=== PATIENT | male | born 1965 | race Caucasian/White ===

== ENCOUNTER 2018-01-17 06:35 | Emergency (ER) | payer BC ==
--- OUTSIDE RECORDS SUMMARY | 2018-01-17 06:38 | XMS REPORT | Clinical Summary ---
:1965 Author Organization [facility] Address [address] [place] [address] Phone Care Team Providers Name Role Phone Unavailable Primary Care Provider Unavailable Allergies No Known Allergies Current Medications Prescription Sig. Disp. Refills Start End Status Date Date levothyroxine Take 100 mcg by Active (SYNTHROID, mouth Every LEVOTHROID) 100 MCG morning on an tablet empty stomach. diazePAM (VALIUM) 5 Take 5 mg by mouth Active MG tablet as needed for Anxiety. solifenacin Take 10 mg by Active (VESICARE) 5 MG mouth daily. tablet ondansetron Take by mouth Active (ZOFRAN) 8 MG every 8 (eight) tablet hours as needed for Nausea. promethazine Take 12.5 mg by Active (PHENERGAN) 12.5 MG mouth every 6 tablet (six) hours as needed for Nausea. enoxaparin Inject 0.4 mLs (40 12 mL 0 01/08/ Active (LOVENOX) 40 mg/0.4 mg total) 8 018 mL Syrg subcutaneously daily for 30 days. traMADol (ULTRAM) Take 2 tablets 30 tablet 0 Active 50 mg tablet (100 mg total) by 8 018 mouth every 6 (six) hours as needed for Pain for up to 10 days. Max Daily Amount: 400 mg acetaminophen-codei Take 1 tablet by Discontinued ne (TYLENOL #3) mouth every 4 018 300-30 mg per (four) hours as tablet needed for Pain. phenazopyridine Take 200 mg by Discontinued (PYRIDIUM) 200 MG mouth 3 (three) 018 tablet times daily as needed for Pain. nitrofurantoin, Take 1 capsule 6 capsule 0 macrocrystal-monohy (100 mg total) by 8 018 drate, (MACROBID) mouth 2 (two) 100 MG capsule times daily for 3 days. phenazopyridine Take 1 tablet (200 10 tablet 0 (PYRIDIUM) 200 MG mg total) by mouth 8 018 tablet 3 (three) times daily as needed for Pain for up to 3 days. tamsulosin (FLOMAX) Take 1 capsule 14 capsule 0 0.4 mg Cp24 24 hr (0.4 mg total) by 8 018 capsule mouth daily for 14 days. oxybutynin Take 1 tablet (10 3 tablet 0 (DITROPAN-XL) 10 MG mg total) by mouth 8 018 24 hr tablet daily for 3 doses. HYDROcodone-acetami Take 1 tablet by Discontinued nophen (NORCO mouth every 6 018 5-325) 5-325 mg per (six) hours as tablet needed for Pain. sulfamethoxazole-tr Take 1 tablet (160 14 tablet 0 imethoprim (BACTRIM mg of trimethoprim 8 018 DS) 800-160 mg per total) by mouth 2 tablet (two) times daily for 7 days. Active Problems Problem Noted Date Bladder cancer (HCC) 01/02/2018 Malignant neoplasm of urinary bladder (HCC) 07/25/2017 Encounters Date Type Specialty Care Team Description 01/02/2018 - Hospital Encounter General Internal Danny Vaughn 01/07/2018 Medicine MD Miguel 01/02/2018 Procedure Pass 01/02/2018 Surgery Danny Vaughn DISSECTION,LYMPH MD Miguel NODE PELVIC 12/30/2017 Hospital Encounter Pre-Admission Danny Vaughn Testing MD Miguel 12/30/2017 Anesthesia Event Yesenia Harris MD 12/23/2017 Procedure Pass 08/16/2017 Hospital Encounter Radiology Fernandez Myrick Malignant neoplasm MD Reg of urinary bladder, unspecified site (HCC);Prostatic disorder 08/12/2017 Outside Orders Central Scheduling Yen, -Wade Malignant neoplasm MD Reg of urinary bladder, unspecified site (HCC) (Primary Dx);Prostatic disorder 08/03/2017 Hospital Encounter Radiology Danny Vaughn Malignant neoplasm MD Miguel of urinary bladder, unspecified site (HCC) 08/01/2017 Outside Orders Central Scheduling Danny Vaughn Malignant neoplasm MD Miguel of urinary bladder, unspecified site (HCC) (Primary Dx) 07/25/2017 Hospital Encounter Danny Vaughn MD 07/25/2017 Procedure Pass 07/25/2017 Surgery Danny Vaughn CYSTOSCOPY,TURBT MD Miguel 07/22/2017 Hospital Encounter Pre-Admission Testing 07/22/2017 Anesthesia Event Dolores Camilo MD after 01/16/2017 Social History Tobacco Use Types Packs/Day Years Used Date Never Smoker Smokeless Tobacco: Never Used Alcohol Use Drinks/Week oz/Week Comments Yes "very seldom" Sex Assigned at Date Recorded Not on file Last Filed Vital Signs Vital Sign Reading Time Taken Blood Pressure 115/67 01/07/2018 3:38 PM CDT Pulse 86 01/07/2018 3:38 PM CDT Temperature 35.6 C (96.1 F) 01/07/2018 3:38 PM CDT Respiratory Rate 18 01/07/2018 3:38 PM CDT Oxygen Saturation 98% 01/07/2018 3:38 PM CDT Inhaled Oxygen Concentration - - Weight 83.6 kg (184 lb 4.9 oz) 01/02/2018 5:40 AM CDT Height 180.3 cm (5' 11") 01/02/2018 5:40 AM CDT Body Mass Index 25.71 01/02/2018 5:40 AM CDT Plan of Treatment Not on file Implants Implanted Type Area Finish Remover Device Expiration Model / Serial Identifier Date / Lot Cath Exp Silv Soak [place] 12.5cmx [id number] - [id number] Pain ESTRELLA 03/08/2020 [id number] / Implanted: Qty: 1 on 01/02/2018 by Danny Vaughn MD Mgmt/Stim / ulator [id number] Cath Exp Silv Soak [place] 12.5cmx [id number] - [id number] Pain ESTRELLA 12/15/2019 [id number] / Implanted: Qty: 1 on 01/02/2018 by Danny Vaughn MD Mgmt/Stim / ulator [id number] Stent,Uret Manager Scheduling Diversion 8.4fr Left - [id number] Uro Stent [employer] UR[employer]ICAL 08/08/2018 [id number] / Implanted: Qty: 1 on 01/02/2018 by Danny Vaughn MD / [id number] Stent Manager Scheduling Uret 8.5jte98cp R [id number] - [id number] Uro Stent COOK:UROLOGY 08/08/2018 [id number] / Implanted: Qty: 1 on 01/02/2018 by Danny Vaughn MD / [id number] Procedures Procedure Name Priority Date/Time Associated Diagnosis Comments CYSTECTOMY,CREATION 01/02/2018 8:00 AM Malignant neoplasm of STUDOR POUCH CDT urinary bladder, unspecified site (HCC) DISSECTION,LYMPH NODE 01/02/2018 8:00 AM Malignant neoplasm of PELVIC CDT urinary bladder, unspecified site (HCC) CYSTOSCOPY,TURP 07/25/2017 9:51 AM Malignant neoplasm of SENIOR ACCOUNTS PAYABLE CLERK urinary bladder, unspecified site (HCC) CYSTOSCOPY,TURBT 07/25/2017 9:51 AM Malignant neoplasm of SENIOR ACCOUNTS PAYABLE CLERK urinary bladder, unspecified site (HCC) after 01/16/2017 Results RHYTHM STRIP - SCAN (01/10/2018 6:50 AM)Urine culture (01/07/2018 12:20 PM) Component Value Ref Range Result >100,000 col/mL Enterococcus species (A) Specimen Performing Laboratory Urine - Urine, Urostomy [address] [address] Organism Antibiotic Method Susceptibility Enterococcus species Ampicillin <=2: Susceptible Enterococcus species Linezolid 2: Susceptible Enterococcus species Nitrofurantoin <=16: Susceptible Enterococcus species Tetracycline <=1: Susceptible Enterococcus species Vancomycin 1: Susceptible Hemoglobin and hematocrit POD # 1 (01/07/2018 7:36 AM)Only the most recent of6 resultswithin the time period is included. Component Value Ref Range Hemoglobin 8.3 (L) 13.7 - 17.5 GM/DL Hematocrit 25.5 (L) 40.1 - 51.0 % Specimen Performing Laboratory Blood [address] [address] Phosphorus (01/07/2018 7:36 AM)Only the most recent of5 resultswithin the time period is included. Component Value Ref Range Phosphorus 3.0 2.3 - 4.7 mg/dL Specimen Performing Laboratory Blood [address] [address] Narrative Before arterial line is discontinued Magnesium (01/07/2018 7:36 AM)Only the most recent of5 resultswithin the time period is included. Component Value Ref Range Magnesium 1.6 1.6 - 2.6 mg/dL Specimen Performing Laboratory Blood [address] [address] Narrative Before arterial line is discontinued Basic Metabolic Panel - POD 1 (01/07/2018 7:36 AM)Only the most recent of7 resultswithin the time period is included. Component Value Ref Range Sodium 139 136 - 145 meq/L Potassium 3.5 3.5 - 5.1 meq/L Chloride 106 98 - 107 meq/L CO2 26 22 - 29 meq/L BUN 9 7 - 21 mg/dL Creatinine 0.85 0.57 - 1.25 mg/dL Glucose 97 70 - 105 mg/dL Calcium 8.4 8.4 - 10.2 mg/dL EGFR 95Comment: ESTIMATED GFR IS NOT ACCURATE mL/min/1.73 sq m CREATININE CLEARANCE IN PREDICTING GLOMERULAR FILTRATION RATE. ESTIMATED GFR IS NOT APPLICABLE FOR DIALYSIS PATIENTS. Specimen Performing Laboratory Blood [address] [address] Narrative Before arterial line is discontinued TRANSFUSION SERVICE REPORT - SCAN (01/04/2018 6:00 PM)Only the most recent of3 resultswithin the time period is included.Prepare Leuko-Red RBC (01/03/2018 11: 54 PM) Component Value Ref Range CROSSMATCH COMPATIBLE Unit ABO AB Neg UNIT NUMBER [id number] Status READY Blood Bank Product RED BLOOD CELLS PRODUCT CODE P4799Y33 CROSSMATCH COMPATIBLE Unit ABO AB Neg UNIT NUMBER [id number] Status TRANSFUSED Blood Bank Product RED BLOOD CELLS PRODUCT CODE [id number] Specimen Performing Laboratory Other [employer] [place] Transfuse Leuko-Red RBC (01/02/2018 2:30 PM)[facility]RL CRITICAL LABS (ABG,NA,K,H&H ,GLUCOSE) (01/02/2018 12:59 PM) Specimen Performing Laboratory Blood, Arterial Narrative The following orders were created for panel order [facility]RL CRITICAL LABS (ABG,NA,K,H&H,GLUCOSE). Procedure Abnormality Status --------- ------ Blood gas, arterial[[id number]]AbnormalFinal result Sodium Na-Stat Lab[[id number]] NormalFinal result Potassium-Stat Lab[[id number]] NormalFinal result Glucose-Stat Lab[[id number]] AbnormalFinal result HGB/HCT (H&H)-Stat Lab[[id number]] Abnormal Final result Please view results for these tests on the individual orders. Potassium-Stat Lab (01/02/2018 12:59 PM) Component Value Ref Range Potassium 4.1 3.6 - 5.5 meq/L Specimen Performing Laboratory Blood, [address] [address] Sodium Na-Stat Lab (01/02/2018 12:59 PM) Component Value Ref Range Sodium 137 135 - 148 meq/L Specimen Performing Laboratory Blood, [address] [address] Glucose-Stat Lab (01/02/2018 12:59 PM) Component Value Ref Range Glucose 121 (H) 70 - 110 mg/dL Specimen Performing Laboratory Blood, [address] [address] HGB/HCT (H&H)-Stat Lab (01/02/2018 12:59 PM) Component Value Ref Range Hemoglobin 7.7 (L) 13.0 - 16.8 g/dL Hematocrit 23.0 (L) 40.0 - 50.0 % Specimen Performing Laboratory Blood, [address] [address] Calcium, Ionized (01/02/2018 12:59 PM) Component Value Ref Range Calcium, Ion 1.08 (L) 1.12 - 1.27 mmol/L pH, Blood 7.39 Specimen Performing Laboratory Blood [address] [address] Blood gas, arterial (01/02/2018 12:59 PM) Component Value Ref Range pH, Arterial 7.39 7.35 - 7.45 pCO2, Arterial 36 35 - 45 mmHg pO2, Arterial 241 (H) 80 - 90 mmHg O2 Sat, Arterial 99.5 (H) 96.0 - 97.0 % HCO3, Arterial 21 21 - 29 mmol/L Base Excess, Arterial -3.2 (L) -2.0 - 3.0 mmol/L Patient Temperature 37.0 C FIO2 100.0 % Specimen Performing Laboratory Blood, Arterial [facility] [address] [address] Tissue Exam (01/02/2018 9:27 AM)Only the most recent of2 resultswithin the time period is included. Component Value Ref Range Case Report Surgical Pathology Report Case: [id number] Authorizing Provider:Danny Vaughn MDCollected: 01/02/2018 0944 Ordering Location: [facility] Received: 01/02/2018 0950 SERVICES Pathologist: Abdulaziz Daniels MD Specimens: A) - Lymph Node, DISTAL PARAAORTIC LYMPH NODE B) - Lymph Node, LEFT COMMOM ILIAC LYMPH NODE C) - Lymph Node, DISTAL PARAAORTIC LYMPH NODE D) - Lymph Node, LEFT EXTERNAL ILIAC LYMPH NODE E) - Lymph Node, LEFT OBTURATOR LYMPH NODE F) - Lymph Node, LEFT INTERNAL ILIAC LYMPH NODE G) - Lymph Node, RIGHT EXTERNALILIAC LYMPH NODE H) - Lymph Node, RIGHT OBTURATOR LYMPH NODE I) - Lymph Node, RIGHT COMMON ILIAC LYMPH NODE J) - Lymph Node, RIGHT INTERNAL ILIAC LYMPH NODE K) - Lymph Node, PRE SACRAL LYMPH NODE L) - Lymph Node, DISTAL VENA CAVA LYMPH NODE M) - Lymph Node, PROXIMAL LIMIT OF DISSECTION PARA AORTA N) - Lymph Node, PRE AORTIC LYMPH NODE O) - Lymph Node, PROXIMAL PERAAORTIC LYMPH NODE P) - Ureter, Right, RIGHT DISTAL URETER Q) - Ureter, Left, LEFT DISTAL URETER R) - Urinary Bladder, RADICAL CYSTOPROSTATECTOMY S) - Small Bowel, NOS, SMALL BOWEL RESECTION DIAGNOSIS A. LYMPH NODE, DISTAL PARA-AORTIC, DISSECTION: - THREE OF FOUR LYMPH NODES POSITIVE FOR UROTHELIAL CARCINOMA (3/4) B. LYMPH NODE, LEFT COMMON ILIAC, DISSECTION: - SEVEN OF EIGHT LYMPH NODES POSITIVE FOR UROTHELIAL CARCINOMA (7/8) C. LYMPH NODE, DISTAL PARA-AORTIC, EXCISION: - BENIGN ADIPOSE TISSUE D. LYMPH NODE, LEFT EXTERNAL ILIAC, DISSECTION: - TWO OF TWO LYMPH NODES POSITIVE FOR UROTHELIAL CARCINOMA (2/2) E. LYMPH NODE, LEFT OBTURATOR, DISSECTION: - FOUR OF FOUR LYMPH NODES POSITIVE FOR UROTHELIAL CARCINOMA (4/4) F. LYMPH NODE, LEFT INTERNAL ILIAC, DISSECTION: - ONE BENIGN LYMPH NODE (0/1) G. LYMPH NODE, RIGHT EXTERNAL ILIAC, DISSECTION: - THREE BENIGN LYMPH NODES (0/3) H. LYMPH NODE, RIGHT OBTURATOR, DISSECTION: - THREE BENIGN LYMPH NODES (0/3) I. LYMPH NODE, RIGHT COMMON ILIAC, DISSECTION: - FOUR BENIGN LYMPH NODES (0/4) J. LYMPH NODE, RIGHT INTERNAL ILIAC, DISSECTION: - ONE OF SIX LYMPH NODES, POSITIVE FOR UROTHELIAL CARCINOMA (1/6) K. LYMPH NODE, PRESACRAL, DISSECTION: - ONE BENIGN LYMPH NODES (0/1) L. LYMPH NODE, DISTAL VENA CAVA, DISSECTION: - THREE OF FOUR LYMPH NODES, POSITIVE FOR UROTHELIAL CARCINOMA (3/4) M. LYMPH NODE, PROXIMAL LIMIT OF DISSECTION PARA AORTA, DISSECTION: - TWO OF FOUR LYMPH NODES, POSITIVE FOR UROTHELIAL CARCINOMA (2/4) N. LYMPH NODE, PRE-AORTIC, DISSECTION: - EIGHT OF NINE LYMPH NODES, POSITIVE FOR UROTHELIAL CARCINOMA (8/9) O. LYMPH NODE, PROXIMAL PARA-AORTIC, DISSECTION: - BENIGN FIBROADIPOSE TISSUE P. URETER, RIGHT DISTAL, EXCISION OF MARGIN: - NEGATIVE FOR DYSPLASIA OR CARCINOMA Q. URETER, LEFT DISTAL, EXCISION OF MARGIN: - NEGATIVE FOR DYSPLASIA OR CARCINOMA R. BLADDER, RADICAL CYSTOPROSTATECTOMY: - PREVIOUS RESECTION SCAR, NEGATIVE FOR RESIDUAL CARCINOMA PROSTATE, RADICAL CYSTOPROSTATECTOMY: - ACUTE AND CHRONIC INFLAMMATION SEMINAL VESICLE, RADICAL CYSTOPROSTATECTOMY: - NO PATHOLOGIC DIAGNOSIS S. SMALL BOWEL, RESECTION: - NO PATHOLOGIC DIAGNOSIS Signing Pathologist Direct Phone Line: [phone] SYNOPTIC REPORT URINARY BLADDER: Cystectomy, Anterior Exenteration( Bladder Res - All Specimens) SPECIMEN Procedure:Radical cystoprostatectomy TUMOR Tumor Site:Left lateral wall Histologic Type:Papillary urothelial carcinoma, invasive Histologic Grade:High-grade Tumor Size:Cannot be determined: No residual tumor present Tumor Extent: Tumor Extension:No evidence of primary tumor Accessory Findings: Lymphovascular Invasion:Not identified Tumor Configuration:Cannot be determined MARGINS Margins:Uninvolved by invasive carcinoma and carcinoma in situ / noninvasive urothelial carcinoma LYMPH NODES Number of Lymph Nodes Involved:30 Size of Largest Metastatic Deposit in Centimeters (cm):0.65 Centimeters (cm) Site:Preaortic Size of Largest Lymph Node Involved in Centimeters (cm):2.1 Centimeters (cm) Extranodal Extension:Not identified Number of Lymph Nodes Examined:53 PATHOLOGIC STAGE CLASSIFICATION (pTNM, AJCC 8th Edition) TNM Descriptors:y (post-treatment) Primary Tumor (pT):pT0 Regional Lymph Nodes (pN):pN3 CPT Code(s) 15761, 83986 X 9, 15872 X 4, 30444 X 11 CLINICAL HISTORY Bladder cancer SPECIMEN SOURCE A. Pelvic lymph nodes, para-aortic lymph nodes; B. Left common iliac lymph node; C. Distal paraaortic lymph node; D. Left external iliac lymph node; E. Left obturator lymph node; F. Left internal iliac lymph node; G. Right external iliac lymph node; H. Right obturator lymph node; I. Right common iliac lymph node; J. Right internal iliac lymph node; K. Presacral lymph node; L. Distal vena caval lymph node; M. Proximal limit of dissection, para aorta; N. pre-aortic lymph nodes; O. Proximal periaortic lymph node; P. Right ureter; Q. Left ureter; R. urinary bladder, radical cystoprostatectomy; S. small bowel resection GROSS DESCRIPTION A. Received fresh for intraoperative consultation labeled with the patient's name and "distal para-aortic lymph node" is a single piece of everett-yellow adipose tissue measuring 1.3 x 1.2 x 0.4 cm. Two lym ph nodes are identified measuring from 0.4 x 0.3 x 0.2 cm to 07 x 0.5 x 0.3 cm. The two lymph nodes are bisected and touch preparations are performed. The larger lymph node is submitted in cassettes [id number] S-[id number], the smaller lymph node is submitted entirely in cassette A3FS, and the remaining fibroadipose tissue is submitted in cassette A4-A5. B labeled "left common iliac lymph node" consists of adipose tissue measuring 4 x 2.5 x 1 cm in aggregate yielding six lymph nodes from fatty to everett -finney measuring up to 2 cm in greatest dimension. The specimen is entirely submitted as follows: B1, two lymph nodes; B2, one lymph node bisected; B3, one lymph node bisected; B4, one lymph node bisected; B5, one lymph node bisected; B6, remainder of adipose tissue. C labeled "distal paraaortic lymph node" consists of adipose tissue measuring 1 x 0.6 x 0.3 cm. There is no lymph node tissue palpated. The specimen sis entirely submitted C1. D labeled "left external iliac lymph node" consists of adipose tissue measuring 3.5 x 2.5 x 1 cm in aggregate yielding two everett-red lymph nodes measuring up to 1 cm. The specimen is entirely submitted as follows: D1, one lymph node bisected; D2, one lymph node bisected; D3 and D4 , remainder of adipose tissue. E labeled "left obturator lymph node" consists of a large amount of adipose tissue measuring 5.5 x 4 x 2 cm in aggregate yielding three everett fatty lymph nodes measuring up to 3.5 cm. The specimen is enti rely submitted as follows: E1, one lymph node; E2, one lymph node bisected; E3 and E4, largest lymph node serially sectioned; E5 through E8, remainder of adipose tissue. F labeled "left internal iliac lymph node" consists of small portion of adipose tissue measuring 1.4 x 1 x 0.5 cm yielding no distinct lymph node tissue. The specimen is entirely submitted F1. G labeled "right external iliac lymph node" consists of adipose tissue measuring 4 x 2 x 1 cm yielding a single everett-finney lymph node measuring 0.4 cm. Lymph node is bisected, submitted G1. Remainder of the fat is submitted G2 through G4. H labeled "right obturator lymph node" consists of adipose tissue measuring 4 x 4 x 1.5 cm yielding four everett-finney and fatty lymph nodes measuring up to 6.2 cm. The specimen is entirely submitted as foll ows: H1, two lymph nodes bisected, one inked blue; H2, one lymph node bisected; H3 through H5, largest lymph node serially sectioned; H6 through H8, remainder of adipose tissue. I labeled "right common iliac lymph node" consists of a small portion of adipose tissue measuring 2 x 1 x 1 cm yielding two everett-red lymph nodes measuring 0.4 and 0.5 cm. The specimen is entirely submitt ed as follows: I1, two lymph nodes; I2, remainder of fat. J labeled "right internal iliac lymph node consists of adipose tissue measuring 2.5 x 2.5 x 0.5 cm in aggregate yielding no palpable lymph node tissue. Adipose tissue is entirely submitted J1 and J2. K labeled "presacral lymph node" consists of adipose tissue measuring 2 x 1 x 0.4 cm yielding one possible everett lymph node measuring 0.4 cm. Submitted entirely K1. Remainder of the fat submitted K2. L labeled "distal vena cava lymph node" consists of adipose tissue measuring 2 x 2 x 0.5 cm yielding a everett-red fatty lymph node measuring 2 cm in greatest dimension. The specimen is entirely submitted a s follows: L1, lymph node; L2, remainder of fat. M. Received fresh for intraoperative consultation labeled with the patient's name and "proximal limit of dissection para aorta lymph nodes" is a single piece of everett-yellow adipose tissue measuring 1.8 x 1.3 x 0.8 cm. Two lymph nodes are identified measuring from 0.5 to 0.8 cm in greatest dimension. Touch preparations are performed. The specimen is submitted entirely as follows; M1FS- largest lymph nod e, M2FS- smaller lymph node, M3-M4- remaining fibroadipose tissue. N labeled "preaortic lymph node" consists of adipose tissue measuring 3 x 2 x 1 cm in aggregate yielding four possible everett fatty lymph node ranging from 0.5 to 1.5 cm. The specimen is entirely submitted as follows: N1, four lymph nodes; N2, remainder of adipose tissue. O labeled "proximal paraaortic lymph node" consists of adipose tissue measuring 1.5 x 1.5 x 0.4 cm. Grossly no palpable lymph node tissue is present. The fat is entirely submitted O1. P. Received fresh for intraoperative consultation labeled with the patient's name and "right distal ureter" is a single ureter measuring 0.3 x 0.5 cm with scant fibroadipose tissue measuring 0.4 cm. The ureter is submitted entirely in one cassette for frozen section diagnosis. The remaining fibroadipose tissue is submitted in cassette P2. Q. Received fresh for intraoperative consultation labeled with the patient's name and "left distal ureter" is a single ureter measuring 0.3 x 0.5 cm with scant fibroadipose tissue measuring 0.4 cm. The ureter is submitted entirely in one cassette for frozen section diagnosis. The remaining fibroadipose tissue is submitted in cassette Q2. R. Received fresh labeled with the patient's name and "radical cystoprostatectomy" is a radical cystoprostatectomy specimen including an intact bladder measuring 10 cm x 9.5 cm x 4 cm, attached bilatera l ureter stumps (left 4.5 x 0.3, right 3.8 x 0.3 cm) and an attached prostate measuring 3.4 cm x 3.3 cm x 1.7 cm. The bladder is opened to reveal a everett-white scar along the left lateral wall measuring 3 .5 x 0.8 cm with a depth of 0.3 cm. The tumor infiltrates into the muscularis propria and is 1.2 cm from the serosal surface. The remaining bladder mucosa is unremarkable and everett-finney. No other lesions are noted. The right and left ureters are without grossly visible tumor. The ureteral orifices are patent and uninvolved by tumor. The prostate has a everett- white cut surface with no nodules present. The s eminal vesicles and vas deferentia are without tumor or other abnormalities. Ink code: Black-right bladder and prostate, blue-left bladder and prostate. Rehab Technician sections are submitted as follows: R1, left ureter resection margin; R2, right ureter resection margin; R3, left ureteral orifice; R4, right ureteral orifice; R5, left ureter representati ve sections; R6, right ureter billing representative sections; R7-R23, left lateral bladder wall scar, end submitted; R24, R25, right lateral wall billing representative sections; R26, R27, billing representative sections of p osterior wall; R28, R29, billing representative sections of bladder dome; R30, billing representative section of trigone; R31, billing representative section of anterior wall ; R32, prostate apex; R33-37, prostate from apex to base; R38, seminal vesicles. DD/ew S. Labeled "small bowel resection" consists of a segment of small bowel measuring 3 cm in length x 1.5 cm in diameter. The specimen is grossly unremarkable. Section code: S1, resection margin en face; S2, random section of small bowel. CG/pl INTRAOPERATIVE CONSULTATION FROZEN SECTION DIAGNOSIS: [id number]: DISTAL PARA-AORTIC LYMPH NODE, EXCISION: - TUMOR PRESENT IN LYMPH NODE - REPORTED BY DR. ARTHUR TO DR. VAUGHN AT 10:20 AM [id number]: LYMPH NODE, PROXIMAL LIMIT OF DISSECTION PARAORTA, EXCISION: - TUMOR PRESENT IN ONE OF TWO LYMPH NODES - REPORTED BY DR. ARTHUR TO DR. VAUGHN AT 11:45 AM P1FS: URETER, RIGHT DISTAL, EXCISION OF MARGIN: - NEGATIVE FOR HIGH GRADE DYSPLASIA OR CARCINOMA - REPORTED BY DR. ARTHUR TO DR. VAUGHN AT 11:45 AM Q1FS: URETER, LEFT DISTAL, EXCISION OF MARGIN: - NEGATIVE FOR HIGH GRADE DYSPLASIA OR CARCINOMA - REPORTED BY DR. ARTHUR TO DR. VAUGHN AT 11:45 AM MICROSCOPIC DESCRIPTION Performed. Specimen Performing Laboratory Tissue - Lymph Node; Tissue - Ureter, [facility] Right; Tissue - Ureter, Left; Tissue - [facility] Urinary Bladder; Tissue - Small Bowel, [place] [address] ANESTHESIA CSE BLOCK (01/02/2018 8:56 AM) Narrative Oliver Hernandez 01/02/20188:56 AM CSE Block Patient location during procedure: OR Start time: 01/02/2018 8:10 AM End time: 01/02/2018 8:19 AM Reason for block: procedure for pain, at surgeon's request and post-op pain management Staffing Anesthesiologist: JACQUELINE COATES Resident/CLINICAL UNIT COORDINATOR: OLIVER HERNANDEZ Performed by: resident/CLINICAL UNIT COORDINATOR Preanesthetic Checklist Completed: patient identified, site marked, surgical consent, pre-op evaluation, timeout performed, IV checked, risks and benefits discussed and monitors and equipment checked CSE Patient position: sitting Prep: ChloraPrep Patient monitoring: heart rate, monitor worker and continuous pulse ox Approach: midline Spinal Needle Needle type: [facility]. Needle gauge: 25 G Needle length: 10 cm Epidural Needle Injection technique: REBECCA saline Needle type: Tuohy Needle gauge: 17 G Location: lumbar (1-5) Catheter Catheter type: side hole Catheter size: 19G. Test dose: negative Assessment Sensory level: T10 Events: cerebrospinal fluid Additional Notes Patient remained HDS throughout the procedure. No complications. Dr. Coates present throughout the procedure. Oliver Hernandez MD Anesthesia- PGY 3 M Procedure Note Oliver Hernandez - 01/02/2018 8:55 AM CDT CSE Block Patient location during procedure: OR Start time: 01/02/2018 8:10 AM End time: 01/02/2018 8:19 AM Reason for block: procedure for pain, at surgeon's request and post-op pain management Staffing Anesthesiologist: JACQUELINE COATES Resident/CLINICAL UNIT COORDINATOR: OLIVER HERNANDEZ Performed by: resident/CLINICAL UNIT COORDINATOR Preanesthetic Checklist Completed: patient identified, site marked, surgical consent, pre-op evaluation , timeout performed, IV checked, risks and benefits discussed and monitors and equipment checked CSE Patient position: sitting Prep: ChloraPrep Patient monitoring: heart rate, monitor worker and continuous pulse ox Approach: midline Spinal Needle Needle type: [facility]. Needle gauge: 25 G Needle length: 10 cm Epidural Needle Injection technique: REBECCA saline Needle type: Tuohy Needle gauge: 17 G Location: lumbar (1-5) Catheter Catheter type: side hole Catheter size: 19G. Test dose: negative Assessment Sensory level: T10 Events: cerebrospinal fluid Additional Notes Patient remained HDS throughout the procedure. No complications. Dr. Coates present throughout the procedure. Oliver Hernandez MD Anesthesia- PGY 3 BCM Type and screen, automated (01/02/2018 6:33 AM)Only the most recent of2 resultswithin the time period is included. Component Value Ref Range ABO/RH AUTOMATED (BEAKER) AB NEGATIVE Ab Scrn NEGATIVE Specimen Performing Laboratory Blood [address] [address] Hemoglobin (01/02/2018 6:33 AM) Component Value Ref Range Hemoglobin 11.3 (L) 13.7 - 17.5 GM/DL Specimen Performing Laboratory Blood [address] [address] Narrative Check DOS IR CV Access Fluoro (08/16/2017 11:55 AM) Specimen Performing Laboratory GE RIS Narrative FINAL REPORT Right internal jugular chest port insertion History: Bladder cancer. Modality: Sonography and fluoroscopy. Sedation: Moderate sedation was administered. 1.5 mg of Versed and 75 mcg of fentanyl IV was used for moderate sedation monitored under my direction. Total intra-service time of sedation [id number]. The patient's vital signs were monitored throughout the procedure and recorded in the patient's medical record by the nurse. Endoscopy Tech:Daniel Ty MD Machine Tailer:None. Approach: Right internal jugular vein Estimated blood loss:< 5 cc. Specimen: None. Fluoroscopy Time: 0.5 min. Reference Air Kerma (Ka, r): 7.1 mGy. Technique: Informed written consent was obtained. Discussion of risks, benefits, and alternatives were made with the patient. The patient expressed understanding and agreed to proceed.A universal timeout was performed prior to starting the procedure.All elements maximal sterile barrier technique was utilized for this procedure, including utilization of sterile scrub solution for skin prep, a large sterile sheet to cover the areas of the patient that were not prepped, and hand hygiene, mask, head covering, and sterile gown for performing radiologist and scrub technologist. The skin was anesthetized with 2% lidocaine.Ultrasound evaluation showed a patent and compressible right internal jugular vein, which was punctured under direct real-time ultrasound guidance with a micropuncture needle.An ultrasound image was saved to PACS. A 0.018 inch wire was placed through the needle into the right atrium. A 4 [place] micropuncture sheath was placed. A subcutaneous tunnel and pocket were created in the right anterior chest wall by blunt dissection.The pocket was flushed with antibiotic solution. A 6 [place] Bard single lumen power injectable port was placed within the pocket and the catheter brought through the tunnel. The catheter was cut to appropriate length A peel-away sheath was placed in the right IJ vein and the catheter was advanced through the sheath, with its distal tip terminating in the cavoatrial junction. The peel-away sheath was removed. The port was flushed and aspirated easily following placement.The skin incision was closed with 3Monocryl and Dermabond.The small jugular incision site was closed using Dermabond.The patient tolerated the procedure well and left the department in the same condition. Patient received 1 gram of Vancomycin intravenously pre-procedure. Results:Spot radiograph of the chest demonstrates the new right IJ Port-A-Cath to lie in the expected position with its tip overlying the cavoatrial junction. Impression: Successful, uncomplicated placement of a right internal jugular chest port using sonographic and fluoroscopic guidance and conscious sedation. The port is ready for immediate use. Signed: Daniel Ty MD Report Verified Date/Time:08/16/2017 13:27:04 Reading Location: [place] [address] Angio Body Reading Room Procedure Note Interface, External Ris In - 08/16/2017 1:29 PM SENIOR ACCOUNTS PAYABLE CLERK FINAL REPORT Right internal jugular chest port insertion History: Bladder cancer. Modality: Sonography and fluoroscopy. Sedation: Moderate sedation was administered. 1.5 mg of Versed and 75 mcg of fentanyl IV was used for moderate sedation monitored under my direction. Total intra-service time of sedation was 30 minutes. The patient's vital signs were monitored throughout the procedure and recorded in the patient's medical record by the nurse. Endoscopy Tech: Daniel Ty MD Machine Tailer: None. Approach: Right internal jugular vein Estimated blood loss: < 5 cc. Specimen: None. Fluoroscopy Time: 0.5 min. Reference Air Kerma (Ka, r): 7.1 mGy. Technique: Informed written consent was obtained. Discussion of risks, benefits, and alternatives were made with the patient. The patient expressed understanding and agreed to proceed. A universal timeout was performed prior to starting the procedure. All elements maximal sterile barrier technique was utilized for this procedure, including utilization of sterile scrub solution for skin prep, a large sterile sheet to cover the areas of the patient that were not prepped, and hand hygiene, mask, head covering, and sterile gown for performing radiologist and scrub technologist. The skin was anesthetized with 2% lidocaine. Ultrasound evaluation showed a patent and compressible right internal jugular vein, which was punctured under direct real-time ultrasound guidance with a micropuncture needle. An ultrasound image was saved to PACS. A 0.018 inch wire was placed through the needle into the right atrium. A 4 [place] micropuncture sheath was placed. A subcutaneous tunnel and pocket were created in the right anterior chest wall by blunt dissection. The pocket was flushed with antibiotic solution. A 6 [place] Bard single lumen power injectable port was placed within the pocket and the catheter brought through the tunnel. The catheter was cut to appropriate length A peel-away sheath was placed in the right IJ vein and the catheter was advanced through the sheath, with its distal tip terminating in the cavoatrial junction. The peel-away sheath was removed. The port was flushed and aspirated easily following placement. The skin incision was closed with 3Monocryl and Dermabond. The small jugular incision site was closed using Dermabond. The patient tolerated the procedure well and left the department in the same condition. Patient received 1 gram of Vancomycin intravenously pre-procedure. Results: Spot radiograph of the chest demonstrates the new right IJ Port-A-Cath to lie in the expected position with its tip overlying the cavoatrial junction. Impression: Successful, uncomplicated placement of a right internal jugular chest port using sonographic and fluoroscopic guidance and conscious sedation. The port is ready for immediate use. Signed: Daniel Ty MD Report Verified Date/Time: 08/16/2017 13:27:04 Reading Location: [place] [address] Angio Body Reading Room /aPTT (08/16/2017 8:31 AM) Component Value Ref Range Protime 14.0 11.7 - 14.7 seconds INR 1.1 <=5.9 PTT 28.1 22.5 - 36.0 seconds Specimen Performing Laboratory Blood [address] [address] Narrative RECOMMENDED COUMADIN/WARFARIN INR THERAPY RANGES STANDARD DOSE: 2.0 - 3.0 Includes: PROPHYLAXIS for venous thrombosis, systemic embolization; TREATMENT for venous thrombosis and/or pulmonary embolus. HIGH RISK: Target INR is 2.5-3.5 for patients with mechanical heart valves. Platelet count (08/16/2017 8:31 AM) Component Value Ref Range Platelets 283 150 - 450 K/CU MM Specimen Performing Laboratory Blood [address] [address] NM PET/CT Whole Body Initial (08/03/2017 12:02 PM) Specimen Performing Laboratory [employer]broker RIS Narrative FINAL REPORT EXAMINATION: FDG-PET/CT, 08/03/2017 7:59 AM CLINICAL HISTORY: High-grade bladder carcinoma, recently diagnosed by cystoscopic biopsy. Enlarged left pelvic lymph nodes on CT. INDICATION:FDG-PET/CT is obtained for initial treatment evaluation. COMPARISON: No prior studies for comparison. CORRELATIVE IMAGING: CT 07/13/2017. TECHNIQUE: Radiopharmaceutical: F-18 Fluorodeoxyglucose Administered activity: 11.4] mCi Route of administration: Intravenously via the left antecubital vein Localization time: 66 minutes Scan extent: Vertex of the skull to the feet Additional imaging: None Serum blood glucose: 109 CPT Code: 20504 FINDINGS: Head and Neck: Mild bernice activity is seen along the cervical chains bilaterally, localizing to subcentimeter lymph nodes on the coacquired CT scan. Tracer uptake in the head and neck mucosa is normal and symmetric. The brain is normal in appearance on noncontrast CT scanning. Chest: Since the prior CT of 07/13/2017, there has been interval development of heterogeneous air space opacities and subpleural consolidation in the right and left lungs, most prominent at the apices. These pulmonary opacities are metabolically active, with SUV measurements in the right apical opacities reaching 6.5. There are scattered borderline lymph nodes in the mediastinum and pulmonary gino as well as in the superior mediastinum in the retrosternal space. These nodes are also metabolically active on PET scanning. Abdomen and Pelvis: CT images again show masslike soft tissue thickening along the left margin of the urinary bladder. FDG activity in the tumor itself is difficult to assess given the intense physiologic radiotracer activity in the urine of the bladder lumen. The prominent lymph node in the left external iliac chain seen on the recent CT examination is intensely hypermetabolic, with an SUV of 7.1. Additional lymph nodes along the left external iliac chain and common iliac chain are also metabolically active. For example, a 6 mm lymph node in the proximal left common iliac chain below the aortic bifurcation (CT image 164) has an SUV of 4.8. An adjacent lymph node slightly more proximal (CT image 167) measures 5 mm in size with an SUV of 4.7. There is bernice activity in the retroperitoneum, as well. For example, a 7 mm lymph node in the left periaortic space below the left renal vessels (CT image 175) has an SUV of 4.0. There are borderline lymph nodes in the janie hepatis and peripancreatic region, several of which are prominently FDG-avid. The dominant of these in the portal caval space (image 199) has an SUV of 6.8. The spleen is diffusely hypermetabolic, with a average parenchymal SUV of 3.8. By comparison, the liver has an average parenchymal SUV of 2.8. There are scattered curvilinear regions of radiotracer activity in the abdomen localizing to normal-appearing loops of large and small bowel, consistent with physiologic uptake. Musculoskeletal: Marrow activity is mildly increased diffusely. SUV measurements in the right and left iliac bones posteriorly, for example, reach 2.5 and 2.4, respectively. There are no focal sites of osseous hypermetabolism. No suspicious lytic or sclerotic osseous lesions are seen on CT. Multiple healed left rib fractures. IMPRESSION: 1. Soft tissue thickening along the left aspect of the urinary bladder, consistent with recently diagnosed high-grade urothelial carcinoma. 2. An enlarged lymph node in the left external iliac region is FDG-avid and suspicious for metastatic disease, as are the nodes in the left common iliac chain and lower retroperitoneum. 3. Additional sites of bernice activity in the chest and periportal regions would be unusual site for metastatic disease from urothelial carcinoma. Combined with the diffuse splenic hypermetabolism and mild diffuse marrow hypermetabolism, the pattern is most suggestive of a systemic process such as sarcoidosis or autoimmune disease. 4. Scattered FDG-avid pulmonary parenchymal opacities, new since 07/12/2017, consistent with infection or inflammation. Signed: Hernán Joseph MD Report Verified Date/Time:08/03/2017 14:56:22 Procedure Note Interface, External Ris In - 08/03/2017 2:58 PM SENIOR ACCOUNTS PAYABLE CLERK FINAL REPORT EXAMINATION: FDG-PET/CT, 08/03/2017 7:59 AM CLINICAL HISTORY: High-grade bladder carcinoma, recently diagnosed by cystoscopic biopsy. Enlarged left pelvic lymph nodes on CT. INDICATION: FDG-PET/CT is obtained for initial treatment evaluation. COMPARISON: No prior studies for comparison. CORRELATIVE IMAGING: CT 07/13/2017. TECHNIQUE: Radiopharmaceutical: F-18 Fluorodeoxyglucose Administered activity: 11.4] mCi Route of administration: Intravenously via the left antecubital vein Localization time: 66 minutes Scan extent: Vertex of the skull to the feet Additional imaging: None Serum blood glucose: 109 CPT Code: 63851 FINDINGS: Head and Neck: Mild bernice activity is seen along the cervical chains bilaterally, localizing to subcentimeter lymph nodes on the coacquired CT scan. Tracer uptake in the head and neck mucosa is normal and symmetric. The brain is normal in appearance on noncontrast CT scanning. Chest: Since the prior CT of 07/13/2017, there has been interval development of heterogeneous air space opacities and subpleural consolidation in the right and left lungs, most prominent at the apices. These pulmonary opacities are metabolically active, with SUV measurements in the right apical opacities reaching 6.5. There are scattered borderline lymph nodes in the mediastinum and pulmonary gino as well as in the superior mediastinum in the retrosternal space. These nodes are also metabolically active on PET scanning. Abdomen and Pelvis: CT images again show masslike soft tissue thickening along the left margin of the urinary bladder. FDG activity in the tumor itself is difficult to assess given the intense physiologic radiotracer activity in the urine of the bladder lumen. The prominent lymph node in the left external iliac chain seen on the recent CT examination is intensely hypermetabolic, with an SUV of 7.1. Additional lymph nodes along the left external iliac chain and common iliac chain are also metabolically active. For example, a 6 mm lymph node in the proximal left common iliac chain below the aortic bifurcation (CT image 164) has an SUV of 4.8. An adjacent lymph node slightly more proximal (CT image 167) measures 5 mm in size with an SUV of 4.7. There is bernice activity in the retroperitoneum, as well. For example, a 7 mm lymph node in the left periaortic space below the left renal vessels (CT image 175) has an SUV of 4.0. There are borderline lymph nodes in the janie hepatis and peripancreatic region, several of which are prominently FDG-avid. The dominant of these in the portal caval space (image 199) has an SUV of 6.8. The spleen is diffusely hypermetabolic, with a average parenchymal SUV of 3.8. By comparison, the liver has an average parenchymal SUV of 2.8. There are scattered curvilinear regions of radiotracer activity in the abdomen localizing to normal-appearing loops of large and small bowel, consistent with physiologic uptake. Musculoskeletal: Marrow activity is mildly increased diffusely. SUV measurements in the right and left iliac bones posteriorly, for example, reach 2.5 and 2.4, respectively. There are no focal sites of osseous hypermetabolism. No suspicious lytic or sclerotic osseous lesions are seen on CT. Multiple healed left rib fractures. IMPRESSION: 1. Soft tissue thickening along the left aspect of the urinary bladder, consistent with recently diagnosed high-grade urothelial carcinoma. 2. An enlarged lymph node in the left external iliac region is FDG-avid and suspicious for metastatic disease, as are the nodes in the left common iliac chain and lower retroperitoneum. 3. Additional sites of bernice activity in the chest and periportal regions would be unusual site for metastatic disease from urothelial carcinoma. Combined with the diffuse splenic hypermetabolism and mild diffuse marrow hypermetabolism, the pattern is most suggestive of a systemic process such as sarcoidosis or autoimmune disease. 4. Scattered FDG-avid pulmonary parenchymal opacities, new since 07/12/2017, consistent with infection or inflammation. Signed: Hernán Joseph MD Report Verified Date/Time: 08/03/2017 14:56:22 -Glucose meter (08/03/2017 9:18 AM) Component Value Ref Range POC-Glucose Meter 109Comment: TESTED AT [address] 70 - 110 mg/dL [address] Specimen Performing Laboratory Blood [address] [address] Urinalysis w/Microscopic (07/25/2017 8:35 AM) Component Value Ref Range Color, UA Yellow Clarity, UA Hazy Specific [place], UA 1.019 1.001 - 1.035 pH, UA 5.5 5.0 - 8.0 Protein, UA 100 mg/dL (A) Negative Glucose, UA Negative Negative Ketones, UA Negative Negative Bilirubin, UA Negative Negative Blood, UA Moderate (A) Negative Nitrite, UA Negative Negative Leukocytes, UA Large (A) Negative Urobilinogen, UA 2.0 (H) 0.2 - 1.0 mg/dL RBC, UA 27 /HPF WBC, UA 155 /HPF Mucus Rare Hyaline Casts, UA 1 /LPF Specimen Source Urine, Clean Catch Specimen Performing Laboratory Urine - Urine, Clean Catch [address] [address] after 01/16/2017
--- OUTSIDE RECORDS SUMMARY | 2018-01-17 06:39 | XMS REPORT ---
:1965 [facility] Address [address] [place] [address] Dr. Rivera [address] [place] [id number] Care Team Providers Name Role Phone HUGO VAUGHN Unavailable Unavailable BERTRAND HERNANDEZ Unavailable Unavailable Problems This patient has no known problems. Allergies, Adverse Reactions, Alerts This patient has no known allergies or adverse reactions. Medications This patient has no known medications. Results Test Description Test Time Test Comments Text Results Atomic Results Result Comments TISSUE EXAM 2018-01-10 16:33:00 Surgical Pathology Report Case: [id number] Authorizing Provider: Hugo Vaughn MD Collected: 01/02/2018 0944 Ordering Location: [facility] PERIOPERATIVE Received: 01/02/2018 0950 SERVICES Pathologist: Abdulaziz Daniels MD Specimens: A) - Lymph Node, DISTAL PARA AORTIC LYMPH NODE B) - Lymph Node, LEFT COMMOM ILIAC LYMPH NODE C) - Lymph Node, DISTAL PARA AORTIC LYMPH NODE D) - Lymph Node, LEFT EXTERNAL ILIAC LYMPH NODE E) - Lymph Node, LEFT OBTURATOR LYMPH NODE F) - Lymph Node, LEFT INTERNAL ILIAC LYMPH NODE G) - Lymph Node, RIGHT EXTERNAL ILIAC LYMPH NODE H) - Lymph Node, RIGHT [...] LYMPH NODE O) - Lymph Node, PROXIMAL EDITH AORTIC LYMPH NODE P) - Ureter, Right, RIGHT DISTAL URETER Q) - Ureter, Left, LEFT DISTAL URETER R) - Urinary Bladder, RADICAL CYSTOPROSTATECTOMY S) - Small Bowel, NOS, SMALL BOWEL RESECTION A. LYMPH NODE, DISTAL PARA-AORTIC, DISSECTION: - THREE OF FOUR LYMPH NODES POSITIVE FOR UROTHELIAL CARCINOMA (3/4)B. LYMPH NODE, LEFT COMMON ILIAC, DISSECTION: - SEVEN OF EIGHT LYMPH NODES POSITIVE FOR UROTHELIAL CARCINOMA (7/8)C. LYMPH NODE, DISTAL PARA-AORTIC, EXCISION: - BENIGN ADIPOSE TISSUED. LYMPH NODE, LEFT EXTERNAL ILIAC, DISSECTION: - TWO OF TWO LYMPH NODES POSITIVE FOR UROTHELIAL CARCINOMA (2/2)E. LYMPH NODE, LEFT OBTURATOR, DISSECTION: - FOUR OF FOUR LYMPH NODES POSITIVE FOR UROTHELIAL CARCINOMA (4/4)F. LYMPH NODE, LEFT INTERNAL ILIAC, DISSECTION: - ONE BENIGN LYMPH NODE (0/1)G. LYMPH NODE, RIGHT EXTERNAL ILIAC, DISSECTION: - THREE BENIGN LYMPH NODES (0/3)H. LYMPH NODE, RIGHT OBTURATOR, DISSECTION: - THREE BENIGN LYMPH NODES (0/3)I. LYMPH NODE, RIGHT COMMON ILIAC, DISSECTION: - FOUR BENIGN LYMPH NODES (0/4)J. LYMPH NODE, RIGHT INTERNAL ILIAC, DISSECTION: - ONE OF SIX LYMPH NODES, POSITIVE FOR UROTHELIAL CARCINOMA (1/6)K. LYMPH NODE, PRESACRAL, DISSECTION: - ONE BENIGN LYMPH NODES (0/1)L. LYMPH NODE, DISTAL VENA CAVA, DISSECTION: - THREE OF FOUR LYMPH NODES, POSITIVE FOR UROTHELIAL CARCINOMA (3/4)M. LYMPH NODE, PROXIMAL LIMIT OF DISSECTION PARA AORTA, DISSECTION: - TWO OF FOUR LYMPH NODES, POSITIVE FOR UROTHELIAL CARCINOMA (2/4)N. LYMPH NODE, PRE-AORTIC, DISSECTION: - EIGHT OF NINE LYMPH NODES, POSITIVE FOR UROTHELIAL CARCINOMA (8/9)O. LYMPH NODE, PROXIMAL PARA-AORTIC, DISSECTION: - BENIGN FIBROADIPOSE TISSUEP. URETER, RIGHT DISTAL, EXCISION OF MARGIN: - NEGATIVE FOR DYSPLASIA OR CARCINOMAQ. URETER, LEFT DISTAL, EXCISION OF MARGIN: - NEGATIVE FOR DYSPLASIA OR CARCINOMAR. BLADDER, RADICAL CYSTOPROSTATECTOMY: - PREVIOUS RESECTION SCAR, NEGATIVE FOR RESIDUAL CARCINOMA PROSTATE, RADICAL CYSTOPROSTATECTOMY: - ACUTE AND CHRONIC INFLAMMATION SEMINAL VESICLE, RADICAL CYSTOPROSTATECTOMY: - NO PATHOLOGIC DIAGNOSISS. SMALL BOWEL, RESECTION: - NO PATHOLOGIC DIAGNOSIS Signing Pathologist Direct Phone Line: [phone] signed by Abdulaziz Daniels MD on 01/10/2018 at 4:33 PMPreliminary result electronically signed by Abdulaziz Daniels MD on 01/06/2018 at 1:36 PMURINARY BLADDER: Cystectomy, Anterior Exenteration (Bladder Res - All Specimens)SPECIMEN Procedure: Radical cystoprostatectomy TUMOR Tumor Site: Left lateral wall Histologic Type: Papillary urothelial carcinoma, invasive Histologic Grade: High-grade Tumor Size: Cannot be determined: No residual tumor present Tumor Extent: Tumor Extension: No evidence of primary tumor Accessory Findings: Lymphovascular Invasion: Not identified Tumor Configuration: Cannot be determined MARGINS Margins: Uninvolved by invasive carcinoma and carcinoma in situ / noninvasive urothelial carcinoma LYMPH NODES Number of Lymph Nodes Involved: 30 Size of Largest Metastatic Deposit in Centimeters (cm): 0.65 Centimeters (cm) Site: Preaortic Size of Largest Lymph Node Involved in Centimeters (cm): 2.1 Centimeters (cm) Extranodal Extension: Not identified Number of Lymph Nodes Examined: 53 PATHOLOGIC STAGE CLASSIFICATION (pTNM, AJCC 8th Edition) TNM Descriptors: y (post-treatment) Primary Tumor (pT): pT0 Regional Lymph Nodes (pN): pN3 06420, 96020 X 9, 16209 X 4, 20207 X 11Bladder cancerA. Pelvic lymph nodes, para-aortic lymph nodes; B. [...] urinary bladder, radical cystoprostatectomy; S. small bowel resectionA. Received fresh for intraoperative consultation labeled with the patient's name and "distal para-aortic lymph node" is a single piece of everett-yellow adipose tissue measuring 1.3 x 1.2 x 0.4 cm. Two lymph nodes are identified measuring from 0.4 x 0.3 x 0.2 cm to 07 x 0.5 x 0.3 cm. The two lymph nodes are bisected and touch preparations are performed. The larger lymph node is submitted in cassettes [id number], the smaller lymph node is submitted entirely in cassette A3FS, and the remaining fibroadipose tissue is submitted in cassette A4-A5.B labeled "left common iliac lymph node" consists of adipose tissue measuring 4 x 2.5 x 1 cm in aggregate yielding six lymph nodes from fatty to everett-finney measuring up to 2 cm in greatest [...] D2, one lymph node bisected; D3 and D4, remainder of adipose tissue. E labeled "left obturator lymph node" consists of a large amount of adipose tissue measuring 5.5 x 4 x 2 cm in aggregate yielding three everett fatty lymph nodes measuring up to 3.5 cm. The specimen is entirely submitted as follows: E1, one lymph node; [...] The specimen is entirely submitted as follows: H1, two lymph nodes bisected, one inked [...] and 0.5 cm. The specimen is entirely submitted as follows: I1, two lymph nodes; I2, remainder of fat.J labeled "right internal iliac lymph node consists [...] The specimen is entirely submitted as follows: L1, lymph node; L2, remainder of [...] submitted entirely as follows; M1FS- largest lymph node, M2FS- smaller lymph node, M3-M4- remaining fibroadipose tissue.N labeled "preaortic lymph node" consists of adipose [...] remaining fibroadipose tissue is submitted in cassette P2.Q. Received fresh for intraoperative consultation labeled with the patient's name and "left distal ureter" is a single ureter measuring 0.3 x 0.5 cm with scant fibroadipose tissue measuring 0.4 cm. The ureter is submitted entirely in one cassette for frozen section diagnosis. The remaining fibroadipose tissue is submitted in cassette Q2.R. Received fresh labeled with the patient's name and "radical cystoprostatectomy" is a radical cystoprostatectomy specimen including an intact bladder measuring 10 cm x 9.5 cm x 4 cm, attached bilateral ureter stumps (left 4.5 x 0.3, right 3.8 x 0.3 cm) and an attached prostate measuring 3.4 cm x 3.3 cm x 1.7 cm. The bladder is opened to reveal a everett-white scar along the left lateral wall measuring 3.5 x 0.8 cm with a depth of 0.3 cm. The tumor infiltrates into the muscularis propria and is 1.2 cm from the serosal surface. The remaining bladder mucosa is unremarkable and everett-finney. No other lesions are noted. The right and left ureters are without grossly visible tumor. The ureteral orifices are patent and uninvolved by tumor. The prostate has a everett-white cut surface with no nodules present. The seminal vesicles and vas deferentia are without tumor or other abnormalities.Ink code: Black-right bladder and prostate, blue-left bladder and prostate.Leadership Development Instructor sections are submitted as follows: R1, left ureter resection margin; R2, right ureter resection margin; R3, left ureteral orifice; R4, right ureteral orifice; R5, left ureter product sales representative sections; R6, right ureter product sales representative sections; R7-R23, left lateral bladder wall scar, end submitted; R24, R25, right lateral wall product sales representative sections; R26, R27, product sales representative sections of posterior wall; R28, R29, product sales representative sections of bladder dome; R30, product sales representative section of trigone; R31, product sales representative section of anterior wall; R32, prostate apex; R33-37, prostate from apex to base; R38, seminal vesicles. DD/ewS. Labeled "small bowel resection" consists of a segment of small bowel measuring 3 cm in length x 1.5 cm in diameter. The specimen is grossly unremarkable. Section code: S1, resection margin en face; S2, random section of small bowel. CG/plFROZEN SECTION DIAGNOSIS:[id number]: DISTAL PARA-AORTIC LYMPH NODE, EXCISION: - TUMOR PRESENT IN LYMPH NODE - REPORTED BY DR. ARTHUR TO DR. VAUGHN AT 10:20 [id number]: LYMPH NODE, PROXIMAL LIMIT OF DISSECTION PARAORTA, EXCISION: - TUMOR PRESENT IN ONE OF TWO LYMPH NODES - REPORTED BY DR. ARTHUR TO DR. VAUGHN AT 11:45 AMP1FS: URETER, RIGHT DISTAL, EXCISION OF MARGIN: - NEGATIVE FOR HIGH GRADE DYSPLASIA OR CARCINOMA - REPORTED BY DR. ARTHUR TO DR. VAUGHN AT 11:45 AMQ1FS: URETER, LEFT DISTAL, EXCISION OF MARGIN: - NEGATIVE FOR HIGH GRADE DYSPLASIA OR CARCINOMA - REPORTED BY DR. ARTHUR TO DR. VAUGHN AT 11:45 AM Performed. URINE CULTURE 2018-01-09 12:19:00 Test Item Value Reference Range Comments CULTURE (BEAKER) (test ENTEROCOCCUS SPECIES >100,000 col/mL Enterococcus gact=3898) species Ampicillin (test code=26) Linezolid (test code=40) Nitrofurantoin (test code=23) Tetracycline (test code=2) Vancomycin (test code=13) [id number] 08:23:00 Test Item Value Reference Range Comments PHOSPHORUS (BEAKER) (test qiuh=249) 3.0 mg/dL 2.3-4.7 Before arterial line is [id number] 08:23:00 Test Item Value Reference Range Comments MAGNESIUM (BEAKER) (test zjom=105) 1.6 mg/dL 1.6-2.6 Before arterial line is discontinuedBASIC METABOLIC [id number] 08:23:00 Test Item Value Reference Range Comments SODIUM (BEAKER) (test 139 meq/L 136-145 mlbg=383) POTASSIUM (BEAKER) (test 3.5 meq/L 3.5-5.1 dzyc=938) CHLORIDE (BEAKER) (test 106 meq/L 98-107 jkuj=323) CO2 (BEAKER) (test 26 meq/L 22-29 cixy=867) BLOOD UREA NITROGEN 9 mg/dL 7-21 (BEAKER) (test dycf=086) CREATININE (BEAKER) (test 0.85 mg/dL 0.57-1.25 zqbw=941) GLUCOSE RANDOM (BEAKER) 97 mg/dL 70-105 (test mubi=051) CALCIUM (BEAKER) (test 8.4 mg/dL 8.4-10.2 xcox=802) EGFR (BEAKER) (test 95 mL/min/1.73 sq m ESTIMATED GFR IS NOT lpqm=7502) ACCURATE CREATININE CLEARANCE IN PREDICTING GLOMERULAR FILTRATION RATE. ESTIMATED GFR IS NOT APPLICABLE FOR DIALYSIS PATIENTS. Before arterial line is discontinuedHEMOGLOBIN AND [id number] 07:53:00 Test Item Value Reference Range Comments HEMOGLOBIN (BEAKER) (test afzo=650) 8.3 GM/DL 13.7-17.5 HEMATOCRIT (BEAKER) (test gfti=573) 25.5 % 40.1-51.0 [id number] 07:53:00 Test Item Value Reference Range Comments PHOSPHORUS (BEAKER) (test wzzv=790) 3.0 mg/dL 2.3-4.7 Before arterial line is [id number] 07:53:00 Test Item Value Reference Range Comments MAGNESIUM (BEAKER) (test uzhd=822) 1.6 mg/dL 1.6-2.6 Before arterial line is discontinuedBASIC METABOLIC [id number] 07:53:00 Test Item Value Reference Range Comments SODIUM (BEAKER) (test 135 meq/L 136-145 ootc=864) POTASSIUM (BEAKER) (test 3.9 meq/L 3.5-5.1 jdib=550) CHLORIDE (BEAKER) (test 109 meq/L 98-107 zylv=831) CO2 (BEAKER) (test 20 meq/L 22-29 jczc=083) BLOOD UREA NITROGEN 12 mg/dL 7-21 (BEAKER) (test lnhl=413) CREATININE (BEAKER) (test 0.88 mg/dL 0.57-1.25 dmlf=195) GLUCOSE RANDOM (BEAKER) 94 mg/dL 70-105 (test kxgt=508) CALCIUM (BEAKER) (test 8.2 mg/dL 8.4-10.2 ncme=480) EGFR (BEAKER) (test 91 mL/min/1.73 sq m ESTIMATED GFR IS NOT heto=7373) ACCURATE CREATININE CLEARANCE IN PREDICTING GLOMERULAR FILTRATION RATE. ESTIMATED GFR IS NOT APPLICABLE FOR DIALYSIS PATIENTS. Before arterial line is discontinuedHEMOGLOBIN AND [id number] 06:12:00 Test Item Value Reference Range Comments HEMOGLOBIN (BEAKER) (test iuep=338) 7.6 GM/DL 13.7-17.5 HEMATOCRIT (BEAKER) (test crna=724) 23.7 % 40.1-51.0 [id number] 05:44:00 Test Item Value Reference Range Comments PHOSPHORUS (BEAKER) (test wgwn=398) 3.0 mg/dL 2.3-4.7 Before arterial line is [id number] 05:44:00 Test Item Value Reference Range Comments MAGNESIUM (BEAKER) (test xenl=710) 1.6 mg/dL 1.6-2.6 Before arterial line is discontinuedBASIC METABOLIC [id number] 05:44:00 Test Item Value Reference Range Comments SODIUM (BEAKER) (test 138 meq/L 136-145 euyt=143) POTASSIUM (BEAKER) (test 4.1 meq/L 3.5-5.1 cfob=941) CHLORIDE (BEAKER) (test 109 meq/L 98-107 bmpj=003) CO2 (BEAKER) (test 21 meq/L 22-29 qhjq=509) BLOOD UREA NITROGEN 19 mg/dL 7-21 (BEAKER) (test xwwu=359) CREATININE (BEAKER) (test 1.12 mg/dL 0.57-1.25 ymzp=974) GLUCOSE RANDOM (BEAKER) 107 mg/dL 70-105 (test mlmy=617) CALCIUM (BEAKER) (test 8.3 mg/dL 8.4-10.2 ntny=615) EGFR (BEAKER) (test 69 mL/min/1.73 sq m ESTIMATED GFR IS NOT dmrq=6985) ACCURATE CREATININE CLEARANCE IN PREDICTING GLOMERULAR FILTRATION RATE. ESTIMATED GFR IS NOT APPLICABLE FOR DIALYSIS PATIENTS. Before arterial line is discontinuedHEMOGLOBIN AND [id number] 05:07:00 Test Item Value Reference Range Comments HEMOGLOBIN (BEAKER) (test ymut=473) 7.6 GM/DL 13.7-17.5 HEMATOCRIT (BEAKER) (test qxyj=423) 23.4 % 40.1-51.0 [id number] 06:36:00 Test Item Value Reference Range Comments MAGNESIUM (BEAKER) (test wljo=453) 2.1 mg/dL 1.6-2.6 Before arterial line is discontinuedBASIC METABOLIC [id number] 06:36:00 Test Item Value Reference Range Comments SODIUM (BEAKER) (test 134 meq/L 136-145 psnf=225) POTASSIUM (BEAKER) (test 4.9 meq/L 3.5-5.1 bguo=411) CHLORIDE (BEAKER) (test 107 meq/L 98-107 zeam=893) CO2 (BEAKER) (test 21 meq/L 22-29 kzub=890) BLOOD UREA NITROGEN 26 mg/dL 7-21 (BEAKER) (test ovoi=335) CREATININE (BEAKER) (test 1.36 mg/dL 0.57-1.25 rvql=714) GLUCOSE RANDOM (BEAKER) 113 mg/dL 70-105 (test qtfj=318) CALCIUM (BEAKER) (test 8.2 mg/dL 8.4-10.2 uzer=227) EGFR (BEAKER) (test 55 mL/min/1.73 sq m ESTIMATED GFR IS NOT iwpx=9379) ACCURATE CREATININE CLEARANCE IN PREDICTING GLOMERULAR FILTRATION RATE. ESTIMATED GFR IS NOT APPLICABLE FOR DIALYSIS PATIENTS. Before arterial line is [id number] 06:36:00 Test Item Value Reference Range Comments PHOSPHORUS (BEAKER) (test xdbh=746) 3.3 mg/dL 2.3-4.7 HEMOGLOBIN AND [id number] 06:16:00 Test Item Value Reference Range Comments HEMOGLOBIN (BEAKER) (test cwny=613) 7.9 GM/DL 13.7-17.5 HEMATOCRIT (BEAKER) (test bwaf=183) 24.4 % 40.1-51.0 [id number] 06:27:00 Test Item Value Reference Range Comments PHOSPHORUS (BEAKER) (test cuep=639) 3.4 mg/dL 2.3-4.7 Before arterial line is [id number] 06:27:00 Test Item Value Reference Range Comments MAGNESIUM (BEAKER) (test ttcl=913) 2.3 mg/dL 1.6-2.6 Before arterial line is discontinuedBASIC METABOLIC [id number] 06:27:00 Test Item Value Reference Range Comments SODIUM (BEAKER) (test 134 meq/L 136-145 wtvd=464) POTASSIUM (BEAKER) (test 5.6 meq/L 3.5-5.1 ugvw=540) CHLORIDE (BEAKER) (test 108 meq/L 98-107 xzcu=308) CO2 (BEAKER) (test 19 meq/L 22-29 qpxz=404) BLOOD UREA NITROGEN 27 mg/dL 7-21 (BEAKER) (test cdht=609) CREATININE (BEAKER) (test 1.62 mg/dL 0.57-1.25 dpgz=854) GLUCOSE RANDOM (BEAKER) 155 mg/dL 70-105 (test eggl=740) CALCIUM (BEAKER) (test 8.6 mg/dL 8.4-10.2 cptc=456) EGFR (BEAKER) (test 45 mL/min/1.73 sq m ESTIMATED GFR IS NOT ukcc=5123) ACCURATE CREATININE CLEARANCE IN PREDICTING GLOMERULAR FILTRATION RATE. ESTIMATED GFR IS NOT APPLICABLE FOR DIALYSIS PATIENTS. Before arterial line is discontinuedHEMOGLOBIN AND [id number] 06:12:00 Test Item Value Reference Range Comments HEMOGLOBIN (BEAKER) (test ziey=560) 8.7 GM/DL 13.7-17.5 HEMATOCRIT (BEAKER) (test pphd=908) 26.1 % 40.1-51.0 BASIC METABOLIC [id number] 16:59:00 Test Item Value Reference Range Comments SODIUM (BEAKER) (test 137 meq/L 136-145 oebo=861) POTASSIUM (BEAKER) (test 5.0 meq/L 3.5-5.1 jtlw=608) CHLORIDE (BEAKER) (test 110 meq/L 98-107 gnfr=708) CO2 (BEAKER) (test 17 meq/L 22-29 mskz=665) BLOOD UREA NITROGEN 18 mg/dL 7-21 (BEAKER) (test nkey=744) CREATININE (BEAKER) (test 1.22 mg/dL 0.57-1.25 bvlf=305) GLUCOSE RANDOM (BEAKER) 156 mg/dL 70-105 (test ogev=931) CALCIUM (BEAKER) (test 8.6 mg/dL 8.4-10.2 yeia=062) EGFR (BEAKER) (test 63 mL/min/1.73 sq m ESTIMATED GFR IS NOT vwyg=7303) ACCURATE CREATININE CLEARANCE IN PREDICTING GLOMERULAR FILTRATION RATE. ESTIMATED GFR IS NOT APPLICABLE FOR DIALYSIS PATIENTS. [facility] [id number] 16:13:00 Test Item Value Reference Range Comments HEMOGLOBIN (BEAKER) (test syxl=332) 8.5 GM/DL 13.7-17.5 HEMATOCRIT (BEAKER) (test miow=075) 25.5 % 40.1-51.0 SODIUM NA-STAT [id number] 13:04:00 Test Item Value Reference Range Comments SODIUM (BEAKER) (test ozyy=848) 137 meq/L 135-148 POTASSIUM-STAT [id number] 13:04:00 Test Item Value Reference Range Comments POTASSIUM (BEAKER) (test iavl=294) 4.1 meq/L 3.6-5.5 CALCIUM, [id number] 13:04:00 Test Item Value Reference Range Comments CALCIUM IONIZED (BEAKER) (test dncb=434) 1.08 mmol/L 1.12-1.27 PH, BLOOD (BEAKER) (test rpeg=5001) 7.39 BLOOD GAS, [id number] 13:04:00 Test Item Value Reference Range Comments PH ARTERIAL (BEAKER) (test nuih=691) 7.39 7.35-7.45 PCO2 ARTERIAL (BEAKER) (test laoj=536) 36 mmHg 35-45 PO2 ARTERIAL (BEAKER) (test tzrh=500) 241 mmHg 80-90 O2 SATURATION ARTERIAL (BEAKER) (test tkwu=183) 99.5 % 96.0-97.0 HCO3 ARTERIAL (BEAKER) (test esnx=328) 21 mmol/L 21-29 BASE EXCESS ARTERIAL (BEAKER) (test mxtc=389) -3.2 mmol/L -2.0-3.0 PATIENT TEMPERATURE (BEAKER) (test fkok=6243) 37.0 C FIO2 (BEAKER) (test csti=9832) 100.0 % GLUCOSE-STAT [id number] 13:04:00 Test Item Value Reference Range Comments GLUCOSE RANDOM (BEAKER) (test ipot=815) 121 mg/dL 70-110 HGB/HCT (H&H) - STAT [id number] 13:04:00 Test Item Value Reference Range Comments HEMOGLOBIN (BEAKER) (test xmco=333) 7.7 g/dL 13.0-16.8 HEMATOCRIT (BEAKER) (test dmqm=120) 23.0 % 40.0-50.0 BASIC METABOLIC [id number] 08:07:00 Test Item Value Reference Range Comments SODIUM (BEAKER) (test 138 meq/L 136-145 teug=316) POTASSIUM (BEAKER) (test 3.9 meq/L 3.5-5.1 Specimen slightly jpyy=269) hemolyzed CHLORIDE (BEAKER) (test 102 meq/L 98-107 irxx=181) CO2 (BEAKER) (test 26 meq/L 22-29 eyxp=910) BLOOD UREA NITROGEN 17 mg/dL 7-21 (BEAKER) (test pwee=239) CREATININE (BEAKER) (test 1.00 mg/dL 0.57-1.25 Specimen slightly fvvn=164) hemolyzed GLUCOSE RANDOM (BEAKER) 100 mg/dL 70-105 (test vrbz=651) CALCIUM (BEAKER) (test 9.3 mg/dL 8.4-10.2 xtef=970) EGFR (BEAKER) (test 79 mL/min/1.73 sq m ESTIMATED GFR IS NOT yjbh=2487) ACCURATE CREATININE CLEARANCE IN PREDICTING GLOMERULAR FILTRATION RATE. ESTIMATED GFR IS NOT APPLICABLE FOR DIALYSIS PATIENTS. [id number] 07:18:00 Test Item Value Reference Range Comments HEMOGLOBIN (BEAKER) (test mcpl=411) 11.3 GM/DL 13.7-17.5 Check DOSANG, CV ACCESS, [id number] 13:27:00Reason for Exam:->Malgnant neoplasm of urinary bladder, unspecifiedReason for Exam:->Prostate disorderFINAL REPORT Right internal jugular chest port insertion History: Bladder cancer. Modality: Sonography and fluoroscopy. Sedation: Moderate sedation was administered. 1.5 mg of Versed and 75 mcg of fentanyl IV wasused for moderate sedation monitored under my direction. Total intra-service time of sedation was 30 minutes. The patient's vital signs were monitored throughout the procedure and recorded in the patient's medical record by the nurse. Public Health Social Worker: Daniel Ty MD Die Storage Clerk: None. Approach: Right internal jugular vein Estimated blood loss: < 5 cc. Specimen: None. Fluoroscopy Time: 0.5 min.Reference Air Kerma (Ka, r): 7.1 mGy. Technique: Informed written consent was obtained. Discussion of risks, benefits, and alternatives were made with the patient. The patient expressed understanding and agreed toproceed. A universal timeout was performed prior to [...] scrub technologist. The skin was anesthetized with 2 % lidocaine. Ultrasound evaluation showed a patent and compressible right internal jugular vein, which was punctured under direct real-time ultrasound guidance with a micropuncture needle. An ultrasound image was saved to PACS. A 0.018 inch wire was placed through the needle into the right atrium. A 4 Welsh micropuncture sheath was placed. A subcutaneous tunnel and pocket were created in the right anterior chest wall by blunt dissection. The pocket was flushed with antibiotic solution. A 6 Welsh Bard single lumen power injectable port was placed within thepocket and the catheter brought through the tunnel. The catheter was cut to appropriate length A peel-away sheath was placed in the right IJ vein and the catheter was advanced through the sheath, with its distal tip terminating in the cavoatrial junction. The peel-away sheath was removed. The port wasflushed and aspirated easily following placement. The skin incision was closed with 3Monocryl and Dermabond. The small jugular incision site was closed using Dermabond. The patient tolerated the procedure well and left the department in the same condition. Patient received 1 gram of Vancomycin intravenously pre-procedure. Results: Spot radiograph of the chest demonstrates the new right IJ Port-A-Cath to liein the expected position with its tip overlying the cavoatrial junction. Impression: Successful, uncomplicatedplacement of a right internal jugular chest port using sonographic and fluoroscopic guidance and conscious sedation. The port is ready for immediate use. Signed: Daniel Ty MDReport Verified Date/Time: 2017 13:27:04 Reading Location: [place] [address] Angio Body Reading Room [id number] 09:22:00 Test Item Value Reference Range Comments PROTIME (BEAKER) (test tecl=136) 14.0 seconds 11.7-14.7 INR (BEAKER) (test jnpy=653) 1.1 <=5.9 PARTIAL THROMBOPLASTIN TIME (BEAKER) (test 28.1 seconds 22.5-36.0 zyfe=788) RECOMMENDED COUMADIN/WARFARIN INR THERAPY RANGESSTANDARD DOSE: 2.0 - 3.0 Includes: PROPHYLAXIS forvenous thrombosis, systemic embolization; TREATMENT for venous thrombosis and/or pulmonary embolus.HIGH RISK: Target INR is 2.5-3.5 for patients with mechanical heart valves.PLATELET [id number] 09:07:00 Test Item Value Reference Range Comments PLATELET COUNT (MARCIE) (test prqa=899) 283 K/CU MM 150-450 PET/CT, WHOLE BODY [id number] 14:56:00Reason for Exam:->c67.9FINAL REPORT EXAMINATION: FDG-PET/CT, 08/03/2017 7:59 AM CLINICAL HISTORY:High-grade bladder carcinoma, recently diagnosed by cystoscopic biopsy. Enlarged left pelvic lymph nodes on CT.INDICATION: FDG-PET/CT is obtained for initial treatment evaluation.COMPARISON: No prior studies for comparison.CORRELATIVE IMAGING: CT 07/13/2017. TECHNIQUE:Radiopharmaceutical: F- 18 FluorodeoxyglucoseAdministered activity: 11.4] mCiRoute of administration: Intravenously via the left antecubital veinLocalization time: 66 minutesScan extent: Vertex of the skull to the feetAdditional imaging: NoneSerum blood glucose: 109CPT Code: 24436 FINDINGS:Head and Neck: Mild bernice activity is seen [...] subpleural consolidation in the right and left lungs,most prominent at the apices. These pulmonary opacities are metabolically active, with SUV measurements in the right apical opacities reaching 6.5. There are scattered borderline lymph nodes in the mediastinum and pulmonary gino as well as in the superior mediastinum in the retrosternal space. These nodes are also metabolically active on PET scanning. Abdomen and Pelvis: CT images again show masslikesoft tissue thickening along the left margin of the urinary bladder. FDG activity in the tumor itself is difficult to assess given the intense physiologic radiotracer activity in the urine of the bladder lumen. The prominent lymph node in the left external iliac chain seen on the recent CT examinationis intensely hypermetabolic, with an SUV of 7.1. [...] an SUV of 4.0. There are borderline lymphnodes in the janie hepatis and peripancreatic region, several of which are prominently FDG-avid. Thedominant of these in the portal caval space [...] SUV measurements in the right and left iliacbones posteriorly, for example, reach 2.5 and 2.4, respectively. There are no focal sites of osseoushypermetabolism. No suspicious lytic or sclerotic osseous lesions [...] with infection or inflammation. Signed: Hernán Joseph Verified Date/Time: 08/03/2017 14:56:22 02 :56 PMPOCT-GLUCOSE [id number] 09:20:00 Test Item Value Reference Range Comments POC-GLUCOSE METER (BEAKER) 109 mg/dL 70-110 TESTED AT [facility] [address] [place] [address] (test gicg=[id number]) [facility] [address] TISSUE [id number] 14:18:00Surgical Pathology Report Case: [id number] Authorizing Provider: Hugo Vaughn MD Collected: 07/25/2017 1140 Ordering Location: [facility] Received: 07/25/2017 1251 SERVICES Pathologist: Abdulaziz Daniels MD Specimens: A) - Bladder Tumor, BLADDER TUMOR LEFT LATERAL WALL B) - Prostatic, PROSTATIC URETHRAL BIOPSY A. URINARY BLADDER, LEFT LATERAL WALL, TURBT:- PAPILLARY UROTHELIAL CARCINOMA, HIGH GRADE (WHO GRADE 3), INVASIVE INTO MUSCULARIS PROPRIA - NEGATIVE FOR VASCULAR/LYMPH INVASIONB. PROSTATE, URETHRA, BIOSPY:- NEGATIVE FOR DYSPLASIA OR MALIGANCY- BCG- ASSOCIATED GRANULOMATOUS INFLAMMATION Signing Pathologist Direct Phone Line: [phone] signed by Abdulaziz Daniels MD on 07/26/2017 at 2:18 PMApproximately 20% of the tumor shows some degree of squamous differentiation and 1% shows a micropapillary pattern.[id number], [id number] cancerA. Bladder tumor left lateral wall. B. Prostatic urethra biopsySpecimen A: Received in formalin labeled "bladder tumor", description "bladder tumor left lateral wall" is a 5.0 x 3.5 x 0.5 cm aggregate of pink-everett to finney-white, rubbery, cauterized soft tissue. The specimen is entirely submitted in cassettes A10-[id number].Specimen B: Received in formalin labeled "prostatic", description "prostatic urethra biopsy" are two irregular, pink-everett to finney-white, rubbery, cauterized fragments of soft tissue measuring 1.0 cm and 1.1 cm in greatest dimension. The specimen is entirely submitted in cassette B1. DB/ewPerformed.URINALYSIS W/ [id number] 09: 23:00 Test Item Value Reference Range Comments COLOR (BEAKER) (test athi=304) Yellow CLARITY (BEAKER) (test adkg=061) Hazy SPECIFIC GRAVITY UA (BEAKER) (test 1.019 1.001-1.035 qmhd=982) PH UA (BEAKER) (test givz=455) 5.5 5.0-8.0 PROTEIN UA (BEAKER) (test wkmx=271) 100 mg/dL Negative GLUCOSE UA (BEAKER) (test ixov=327) Negative Negative KETONES UA (BEAKER) (test hbrd=732) Negative Negative BILIRUBIN UA (BEAKER) (test eqor=970) Negative Negative BLOOD UA (BEAKER) (test eeni=494) Moderate Negative NITRITE UA (BEAKER) (test sbnt=042) Negative Negative LEUKOCYTE ESTERASE UA (BEAKER) (test Large Negative voyt=577) UROBILINOGEN UA (BEAKER) (test gjsx=714) 2.0 mg/dL 0.2-1.0 RBC UA (BEAKER) (test gegi=302) 27 /HPF WBC UA (BEAKER) (test qnpv=862) 155 /HPF MUCUS (BEAKER) (test zvuk=8132) Rare HYALINE CASTS (BEAKER) (test frus=418) 1 /LPF SOURCE(BEAKER) (test oxqs=6639) Urine, Clean Catch
[2018-01-17] MEDS ORDERED: NA CHLORIDE 0.9% 1,000 ML ONE (07:08)
[2018-01-17] MEDS ORDERED: MORPHINE 4 MG/ML SYR ONE ×2 (07:08→09:32)
[2018-01-17] MEDS ORDERED: ONDANSETRON 4 MG/2 ML VIAL ONE (07:10)
[2018-01-17 07:17] LABS: Absolute Lymphocytes (CBC) 1.6 K/uL (0.7-4.9); Absolute Monocytes 0.6 K/uL (0.1-1.3); Absolute Neutrophil 4.9 K/uL (1.8-8.0); Basophils % 0.9 % (0-1.3); Eosinophils % 5.6 % (0-4.4); Hematocrit 28.9 % (39.6-49.0); Lymphocytes % 21.1 % (15.3-44.8); MCH 32.1 pg (27.0-35.0); MCV 94.4 fL (80-100); MPV 6.6 fL (7.6-11.3); Monocytes % 7.9 % (3.3-12.3); RBC Red Blood Cell Count 3.06 M/uL (4.33-5.43)
[2018-01-17 07:22] LABS: Protime INR 1.12
[2018-01-17 08:21] LABS: Urine Blood 2+ (NEG); Urine Glucose NEGATIVE (NEG); Urine Protein 2+ (NEG)
[2018-01-17 08:27] LABS: Urine Bacteria 20-50 /HPF (NONE SEEN); Urine Culture Reflex Order REFLEXED
--- NOTE | 2018-01-17 09:06 | RAD REPORT ---
EXAM DESCRIPTION: RAD - Chest Single View - 01/17/2018 7:31 am CLINICAL HISTORY: FEVER Chest pain. COMPARISON: CHEST PA AND LAT 2 VIEW dated 03/04/2014; Stone Protocol dated 08/26/2017 FINDINGS: Portable technique limits examination quality. The lungs are grossly clear. The heart is normal in size. Old left posterior rib fractures.Right-side d port catheter its tip in the SVC. IMPRESSION: No acute intrathoracic process suspected.
[2018-01-17 09:18] LABS: ALT/SGPT 23 U/L (12-78); AST/SGOT 28 U/L (15-37); Albumin 2.8 g/dL (3.4-5.0); Alkaline Phosphatase 99 U/L (45-117); Amylase Level 42 U/L (25-115); BUN Blood Urea Nitrogen 12 mg/dL (7-18); Bicarbonate 27 mmol/L (21-32); Bilirubin Direct 0.1 mg/dL (0-0.2); Bilirubin Total 0.5 mg/dL (0.2-1.0); CKMB Creatine Kinase MB < 1.0 ng/mL (0.3-3.6); Creatine Phosphokinase 45 U/L (39-308); Glucose Level 99 mg/dL (74-106); Lipase 86 U/L (73-393); Potassium 3.7 mmol/L (3.5-5.1); Protein, Total 7.6 g/dL (6.4-8.2); Sodium Level 136 mmol/L (136-145)
[2018-01-17] MEDS ORDERED: CEFTRIAXONE/SWI 1gm 0 GM/0 ML SYR ONE (09:20)
[2018-01-17] MEDS ORDERED: CEFTRIAXONE/SWI 1gm 1 GM/10 ML SYR ONE (09:21)
--- NOTE | 2018-01-17 10:28 | RAD REPORT ---
EXAM DESCRIPTION: CT - Abdomen Pelvis W Contrast - 01/17/2018 9:44 am CLINICAL HISTORY: Bladder cancer. Surgery January 02 2018 COMPARISON: None. TECHNIQUE: Computed axial tomography of the abdomen and pelvis was obtained. 100 cc Isovue-300 is ad ministered intravenously. Oral contrast was given. All CT scans are performed using dose optimization technique as appropriate and may include automated exposure control or mA/KV adjustment according to patient size. FINDINGS: It appears that the bladder has been resected and chrissy bladder formed. Another consideration is that a small amount residual bladder is present. A catheter has been placed into this. Bilateral ureteral s tents have been placed. The left stent courses into the right pelvis. Mild bilateral hydronephrosis i s present. Air is present within the left renal pelvis. A percutaneous drain enters the left anterior abdomen. It courses into the right pelvis. Lymph node d issection within the pelvis is seen. An abscess/ hematoma is not visualized. A small amount of ascites is present within the abdomen and pelvis. A left inguinal hernia contains a scites. Small nonobstructing bilateral renal calculi are present. The liver has a diminished attenuation consistent with fatty infiltration Spleen, pancreas, and adrenals appear unremarkable. The appendix is normal caliber. There is no evidence of diverticulitis A small left ventral hernia near the periumbilical region contains fat. IMPRESSION: Postsurgical changes involving the bladder and ureters as described above. Bilateral ure teral stents are in place. Mild bilateral hydronephrosis is present. Air within the left renal pelvis probably is postsurgical in nature infection can also result in this appearance and should be correl ated clinically. A Multani catheter is in place.
--- NOTE | 2018-01-17 10:42 | EDPHYS ---
Physician Documentation [facility] Name: Diaz Sadler Age: 52 yrs Sex: Male : 1965 Arrival Date: 01/17/2018 Time: 06:36 Bed 15 Private MD: Jhonny Da Silva H ED Physician Stewart Mallory HPI: 01/17 07:00 This 52 yrs old Male presents to ER via Wheelchair with complaints of Problem cp With Urinary Catheter. 07:00 The patient presents with a Multani catheter problem, is not draining. cp 07:00 Onset: The symptoms/episode began/occurred 4 day(s) ago. Associated signs and symptoms: cp Pertinent positives: abdominal pain, fever, nausea, vomiting, Pertinent negatives: constipation, diarrhea. Severity of symptoms: in the emergency department the symptoms are unchanged. Patient reports recent bladder reconstructive and prostate removal surgery for metastatic bladder cancer. Has f/u appt today with surgeon in [place]. Historical: - Allergies: 06:54 No Known Allergies; fc - Home Meds: 06:54 levothyroxine 100 mcg tab 1 tab once daily [Active]; tramadol 50 mg Oral tab 2 tabs q fc 4-6 hrs prn [Active]; 07:00 enoxaparin 40 mg/0.4 mL subcutaneous syrg once daily [Active]; rb1 - PMHx: 06:54 Bladder CA; Hypothyroidism; fc - PSHx: 06:54 bladder/prostate removal on January 02, 2017; fc - Immunization history:: Last tetanus immunization: unknown. - Social history:: Smoking status: Patient/guardian denies using tobacco. - Ebola Screening: : Patient negative for fever greater than or equal to 101.5 degrees Fahrenheit, and additional compatible Ebola Virus Disease symptoms Patient denies exposure to infectious person Patient denies travel to an Ebola-affected area in the 21 days before illness onset. ROS: 07:05 Constitutional: Positive for poor PO intake, Negative for body aches, chills, fever. cp 07:05 Eyes: Negative for injury, pain, redness, and discharge. cp 07:05 ENT: Negative for drainage from ear(s), ear pain, sore throat, difficulty swallowing, difficulty handling secretions. 07:05 Cardiovascular: Negative for chest pain, edema, palpitations. 07:05 Respiratory: Negative for cough, shortness of breath, wheezing. 07:05 Abdomen/GI: Positive for abdominal pain, nausea and vomiting, Negative for diarrhea, constipation, anorexia, black/tarry stool, rectal bleeding. 07:05 Back: Negative for pain at rest, pain with movement, radiated pain. 07:05 : Positive for small amounts, Negative for hematuria. 07:05 Skin: Negative for cellulitis, rash. 07:05 Neuro: Negative for altered mental status, dizziness, headache, weakness. 07:05 All other systems are negative. Exam: 07:11 Constitutional: The patient appears in no acute distress, alert, awake, cp non-diaphoretic, non-toxic, well developed, well nourished, uncomfortable. 07:11 Head/Face: Normocephalic, atraumatic. cp 07:11 Eyes: Periorbital structures: appear normal, Pupils: equal, round, and reactive to light and accomodation, Extraocular movements: intact throughout, Conjunctiva: normal, no exudate, no injection, Sclera: no appreciated abnormality, Lids and lashes: appear normal, bilaterally. 07:11 ENT: External ear(s): are unremarkable, Ear canal(s): are normal, clear, TM's: are normal, no evidence of bulging, no erythema, Nose: is normal, Mouth: Lips: dry, Oral mucosa: dry, Posterior pharynx: is normal, airway is patent, no erythema, no exudate. 07:11 Neck: ROM/movement: is normal, is supple, without pain, no range of motions limitations, no meningismus, no nuchal rigidity. 07:11 Chest/axilla: Inspection: normal, Palpation: is normal, no crepitus, no tenderness. 07:11 Cardiovascular: Rate: tachycardic, Rhythm: regular, Edema: is not appreciated, JVD: is not appreciated. 07:11 Respiratory: the patient does not display signs of respiratory distress, Respirations: normal, no use of accessory muscles, no retractions, no splinting, no tachypnea, labored breathing, is not present, Breath sounds: are clear throughout, no decreased breath sounds, no stridor, no wheezing. 07:11 Abdomen/GI: Inspection: scar(s), are noted in the midline incisional, Bowel sounds: active, all quadrants, Palpation: soft, in all quadrants, moderate abdominal tenderness, in the right lower quadrant and left lower quadrant, rebound tenderness, is not appreciated, voluntary guarding, is elicited in the right lower quadrant and left lower quadrant. 07:11 Back: pain, is absent, ROM is normal. 07:11 Musculoskeletal/extremity: Exam is negative for bony tenderness, calf tenderness, decreased range of motion, edema. 07:11 Skin: cellulitis, is not appreciated, no rash present. 07:11 Neuro: Orientation: to person, place \T\ time. Mentation: lucid, able to follow commands, Cerebellar function: is grossly normal, Motor: moves all fours, strength is normal, Sensation: is normal. 08:00 ECG was reviewed by the Attending Physician. cp Vital Signs: 06:40 BP 128 / 92; Pulse 109; Resp 26; Temp 98.0(O); Pulse Ox 98% on R/A; Weight 83.46 kg fc (R); Height 5 ft. 11 in. (180.34 cm) (R); Pain 10/10; 07:30 BP 128 / 82; Pulse 90; Resp 18; Pulse Ox 97% on R/A; rb1 08:00 BP 119 / 81; Pulse 76; Resp 19; Pulse Ox 96% ; rb1 09:00 BP 113 / 74; Pulse 76; Resp 17; Pulse Ox 97% on R/A; rb1 10:00 BP 113 / 74; Pulse 78; Resp 17; Pulse Ox 97% on R/A; rb1 11:00 BP 123 / 67; Pulse 90; Resp 19; Pulse Ox 99% on R/A; Pain 5/10; rb1 06:40 Body Mass Index 25.66 (83.46 kg, 180.34 cm) fc MDM: 06:48 Patient medically screened. cp 07:30 Differential diagnosis: UTI, urinary retention, Multani catheter problem, sepsis, bowel cp obstruction. 10:40 Data reviewed: vital signs, nurses notes, lab test result(s), radiologic studies, CT cp scan. ED course: VSS. Patient reports he is feeling better. Will discharge to home for continued monitoring. 10:40 Counseling: I had a detailed discussion with the patient and/or guardian regarding: the cp historical points, exam findings, and any diagnostic results supporting the discharge/admit diagnosis, lab results, radiology results, the need for outpatient follow up, with primary surgeon, to return to the emergency department if symptoms worsen or persist or if there are any questions or concerns that arise at home. 01/17 06:56 Order name: Urine Microscopic Only; Complete Time: 08:45 cp 01/17 06:56 Order name: Amylase, Serum; Complete Time: 10:33 cp 01/17 06:56 Order name: Basic Metabolic Panel; Complete Time: 10:33 cp 01/17 10:34 Interpretation: Normal except: GFR 71. cp 01/17 06:56 Order name: Blood Culture Adult (2) cp 01/17 06:56 Order name: CBC with Diff; Complete Time: 07:42 cp 01/17 07:42 Interpretation: Normal except: RBC 3.06; HGB 9.8; HCT 28.9; MCV 94.4; PLT 443; MPV 6.6; cp EOSINOPHIL % 5.6. 01/17 06:56 Order name: Ckmb; Complete Time: 10:33 cp 01/17 06:56 Order name: CPK; Complete Time: 10:33 cp 01/17 06:56 Order name: Lactate; Complete Time: 07:42 cp 01/17 06:56 Order name: LFT's; Complete Time: 10:33 cp 01/17 10:34 Interpretation: Normal except: ALB 2.8; GLOB 4.8; A/G 0.6. cp 01/17 06:56 Order name: Lipase; Complete Time: 10:33 cp 01/17 06:56 Order name: Procalcitonin; Complete Time: 08:20 cp 01/17 08:20 Interpretation: Reviewed. cp 01/17 06:56 Order name: Protime (+inr); Complete Time: 07:42 cp 01/17 06:56 Order name: Ptt, Activated; Complete Time: 07:42 cp 01/17 06:56 Order name: Troponin (emerg Dept Use Only); Complete Time: 07:42 cp 01/17 06:56 Order name: Chest Single View XRAY; Complete Time: 10:33 cp 01/17 06:56 Order name: Accucheck; Complete Time: 07:22 cp 01/17 06:56 Order name: Cardiac monitoring; Complete Time: 08:00 cp 01/17 06:56 Order name: EKG - Nurse/Tech; Complete Time: 07:54 cp 01/17 06:56 Order name: IV Saline Lock - Large Bore; Complete Time: 07:01 cp 01/17 06:56 Order name: Labs collected and sent; Complete Time: 07:01 cp 01/17 06:56 Order name: O2 Per Protocol; Complete Time: 07:02 cp 01/17 06:58 Order name: CT Abd/Pelvis - W/Contrast: give oral contrast; Complete Time: 10:33 cp 01/17 10:35 Interpretation: Report reviewed. 01/17 07:57 Order name: Urine Dipstick--Ancillary (enter results); Complete Time: 08:45 eb 01/17 08:28 Order name: Urine Culture EDMS 01/17 06:56 Order name: O2 Sat Monitoring; Complete Time: 07:02 cp 01/17 06:56 Order name: Urine Dipstick-Ancillary (obtain specimen); Complete Time: 07:54 cp EC:00 Rate is 81 beats/min. Rhythm is regular. DC interval is normal. QRS interval is cp prolonged at 110 msec. QT interval is normal. No ST changes noted. Interpreted by me. Reviewed by me. Administered Medications: 07:06 Drug: NS 0.9% 1000 ml Route: IV; Rate: 1 bolus; Site: left antecubital; rb1 07:06 Drug: morphine 4 mg Route: IVP; Site: left antecubital; rb1 07:30 Follow up: Response: No adverse reaction; Pain is decreased; pain 02/17 rb1 07:06 Drug: Zofran 4 mg Route: IVP; Site: left antecubital; rb1 07:41 Follow up: Response: No adverse reaction; Nausea is decreased rb1 09:26 Drug: Rocephin - (cefTRIAXone) 1 grams Route: IVPB; Infused Over: 30 mins; Site: left rb1 antecubital; 09:34 Drug: morphine 4 mg Route: IVP; Site: left antecubital; rb1 10:00 Follow up: Response: No adverse reaction; Pain is decreased rb1 Point of Care Testing: Blood Glucose: 07:22 Blood Glucose: 117 mg/dL; dh3 Ranges: Critical Glucose Levels:Adult <50 mg/dl or >400 mg/dl <40 mg/dl or >180 mg/dl Disposition: 13:04 Co-signature as Attending Physician, Stewart Mallory MD. rn Disposition: 01/17/18 10:41 Discharged to Home. Impression: Urinary tract infection, site not specified. - Condition is Stable. - Discharge Instructions: Urinary Tract Infection. - Prescriptions for cefpodoxime 200 mg Oral Tablet - take 1 tablet by ORAL route every 12 hours for 10 days with food; 20 tablet. - Medication Reconciliation Form, Thank You Letter, Antibiotic Education, Prescription Opioid Use form. - Follow up: Private Physician; When: Today; Reason: Recheck today's complaints, as scheduled. - Problem is new. - Symptoms have improved. Signatures: Dispatcher [employer] [facility] Maribell Chadwick, RN RN fc Stewart Mallory MD MD rn Ricardo Dewey PA PA cp Kalpana Garcia RN RN rb1 Corrections: (The following items were deleted from the chart) 07:11 06:57 Abdomen Pelvis W Con+CT.RAD.BRZ ordered. [facility] 11:06 10:41 01/17/2018 10:41 Discharged to Home. Impression: Urinary tract infection, site rb1 not specified. Condition is Stable. Forms are Medication Reconciliation Form, Thank You Letter, Antibiotic Education, Prescription Opioid Use. Follow up: Private Physician; When: Today; Reason: Recheck today's complaints, as scheduled. Problem is new. Symptoms have improved. cp
--- NOTE | 2018-01-17 10:42 | ER ---
Nurse's Notes [facility] Name: Diaz Sadler Age: 52 yrs Sex: Male : 1965 Arrival Date: 01/17/2018 Time: 06:36 Bed 15 Private MD: Jhonny Da Silva H Diagnosis: Urinary tract infection, site not specified Presentation: 01/17 06:40 Presenting complaint: Patient states: that he had his bladder/prostate removed by Dr thao Learner due to Stage 4 bladder cancer. Since Tuesday pt has had fever, weakness and nausea. Pt has has issues with amado cath not draining properly since yesterday. Transition of care: patient was not received from another setting of care. Onset of symptoms was January 13, 2018. Risk Assessment: Do you want to hurt yourself or someone else? Patient reports no desire to harm self or others. Initial Sepsis Screen: Does the patient meet any 2 criteria? RR > 20 per min. HR > 90 bpm. Yes Does the patient have a suspected source of infection? Yes: Dysuria/Frequency/Urgency/UTI. Care prior to arrival: None. 06:40 Method Of Arrival: Wheelchair 06:40 Acuity: TERESA 3 fc Historical: - Allergies: 06:54 No Known Allergies; fc - Home Meds: 06:54 levothyroxine 100 mcg tab 1 tab once daily [Active]; tramadol 50 mg Oral tab 2 tabs q fc 4-6 hrs prn [Active]; 07:00 enoxaparin 40 mg/0.4 mL subcutaneous syrg once daily [Active]; rb1 - PMHx: 06:54 Bladder CA; Hypothyroidism; fc - PSHx: 06:54 bladder/prostate removal on January 02, 2017; fc - Immunization history:: Last tetanus immunization: unknown. - Social history:: Smoking status: Patient/guardian denies using tobacco. - Ebola Screening: : Patient negative for fever greater than or equal to 101.5 degrees Fahrenheit, and additional compatible Ebola Virus Disease symptoms Patient denies exposure to infectious person Patient denies travel to an Ebola-affected area in the 21 days before illness onset. Screenin:52 Abuse screen: Denies threats or abuse. Nutritional screening: No deficits noted. Tuberculosis screening: No symptoms or risk factors identified. Fall Risk None identified. Assessment: 07:00 General: Appears uncomfortable, Behavior is calm, cooperative, Reports fever for 2-3 rb1 days. Pain: Complains of pain in suprapubic area, right lower quadrant and left lower quadrant Pain currently is 10 out of 10 on a pain scale. Neuro: Level of Consciousness is awake, alert, obeys commands, Oriented to person, place, time, situation. Cardiovascular: Capillary refill < 3 seconds is brisk in bilateral fingers. Respiratory: Airway is patent Respiratory effort is even, unlabored, Respiratory pattern is regular, symmetrical. GI: Reports constipation, nausea. : : Amado in place Stage 4 bladder CA. Urine is light yellow with sediment present. Derm: Skin is pink, warm \T\ dry. Derm: GERMANIA drain in place in the lower left abdomen. Musculoskeletal: Range of motion: intact in all extremities. 07:00 Derm: Jimmie in place in the midline abdominal incision from recent bladder/prostate rb1 surgery. 07:30 Reassessment: Patient appears in no apparent distress at this time. Patient and/or rb1 family updated on plan of care and expected duration. Pain level reassessed. Patient is alert, oriented x 3, equal unlabored respirations, skin warm/dry/pink. 08:30 Reassessment: Patient appears in no apparent distress at this time. No changes from rb1 previously documented assessment. is at bedside. 09:20 Reassessment: Patient appears in no apparent distress at this time. Patient and/or rb1 family updated on plan of care and expected duration. Pain level reassessed. Patient is alert, oriented x 3, equal unlabored respirations, skin warm/dry/pink. Provider notified of pain 01/17; received order for Morphine 4 mg IVP once. 09:35 Reassessment: Pt. went to CT. rb1 10:30 Reassessment: Patient appears in no apparent distress at this time. Patient and/or rb1 family updated on plan of care and expected duration. Pain level reassessed. Patient is alert, oriented x 3, equal unlabored respirations, skin warm/dry/pink. Patient states feeling better. Vital Signs: 06:40 BP 128 / 92; Pulse 109; Resp 26; Temp 98.0(O); Pulse Ox 98% on R/A; Weight 83.46 kg fc (R); Height 5 ft. 11 in. (180.34 cm) (R); Pain 10/10; 07:30 BP 128 / 82; Pulse 90; Resp 18; Pulse Ox 97% on R/A; rb1 08:00 BP 119 / 81; Pulse 76; Resp 19; Pulse Ox 96% ; rb1 09:00 BP 113 / 74; Pulse 76; Resp 17; Pulse Ox 97% on R/A; rb1 10:00 BP 113 / 74; Pulse 78; Resp 17; Pulse Ox 97% on R/A; rb1 11:00 BP 123 / 67; Pulse 90; Resp 19; Pulse Ox 99% on R/A; Pain 5/10; rb1 06:40 Body Mass Index 25.66 (83.46 kg, 180.34 cm) ED Course: 06:36 Patient arrived in ED. ds1 06:36 Jhonny Da Silva DO is Private Physician. ds1 06:40 Arm band placed on Patient placed in an exam room, on a stretcher. fc 06:48 Ricardo Dewey PA is PHCP. cp 06:48 Ricardo Davis MD is Attending Physician. cp 06:51 Triage completed. fc 06:52 Kalpana Garcia, RN is Primary Nurse. rb1 06:52 Patient has correct armband on for positive identification. Bed in low position. Call fc light in reach. Side rails up X 1. Pulse ox on. NIBP on. 06:52 No provider procedures requiring assistance completed. fc 06:55 Initial lab(s) drawn, by me, First set of blood cultures drawn. ak1 06:58 Inserted saline lock: 20 gauge in left antecubital area, using aseptic technique. Blood ak1 collected. 07:19 Second set of blood cultures drawn by me, by venipuncture 23G to right ac. dh3 07:25 X-ray completed. Portable x-ray completed in exam room. jr1 07:28 Chest Single View XRAY In Process Unspecified. EDMS 07:54 Urine collected: Amado catheter specimen, cloudy, sediment noted. dh3 08:36 Radiology exam delayed due to lab results not completed at this time. (BUN/Creatinine). vr 09:04 Stewart Mallory MD is Attending Physician. cp 09:10 Radiology exam delayed due to lab results not completed at this time. (BUN/Creatinine). vr 09:[address] via wheelchair. sw 09:43 CT completed. Patient tolerated procedure well. Patient moved back from CT. sw 09:44 CT Abd/Pelvis - W/Contrast: give oral contrast In Process Unspecified. EDMS 11:06 IV discontinued, intact, bleeding controlled, No redness/swelling at site. Pressure rb1 dressing applied. Administered Medications: 07:06 Drug: NS 0.9% 1000 ml Route: IV; Rate: 1 bolus; Site: left antecubital; rb1 07:06 Drug: morphine 4 mg Route: IVP; Site: left antecubital; rb1 07:30 Follow up: Response: No adverse reaction; Pain is decreased; pain 8/ rb1 07:06 Drug: Zofran 4 mg Route: IVP; Site: left antecubital; rb1 07:41 Follow up: Response: No adverse reaction; Nausea is decreased rb1 09:26 Drug: Rocephin - (cefTRIAXone) 1 grams Route: IVPB; Infused Over: 30 mins; Site: left rb1 antecubital; 09:34 Drug: morphine 4 mg Route: IVP; Site: left antecubital; rb1 10:00 Follow up: Response: No adverse reaction; Pain is decreased rb1 Point of Care Testing: Blood Glucose: 07:22 Blood Glucose: 117 mg/dL; dh3 Ranges: Intake: Outcome: 10:41 Discharge ordered by MD. cp 11:06 Patient left the ED. rb1 11:06 Discharged to home via wheelchair, with family. rb1 11:06 Condition: stable 11:06 Discharge instructions given to patient, Instructed on discharge instructions, follow up and referral plans. medication usage, Demonstrated understanding of instructions, follow-up care, medications, Prescriptions given X 1. Addendum: 01/20/2018 12:12 Addendum: Culture Results: Positive urine culture. No further action required. Other: a a5 Pt reports he was prescribed Amoxicillin by PCP yesterday, [facility] Faustin was notified and PA stated to continue Amoxicillin and follow-up with PCP if symptoms have not improved. Pt was also instructed to d/c cefpodoxime. . Signatures: Dispatcher [employer] EDMS Margo Patel jr1 Maribell Chadwick RN RN fc Sanford, Demi ds1 Calderon, Audri, RN RN Evy Truong Amber, RN RN ak1 Olivia Cherry Corey, PA PA cp Barber, Rebecca, RN RN rb1 Mendy Quinones 3 Corrections: (The following items were deleted from the chart) 01/17 08:29 07:00 : Amado in place Stage 4 bladder CA rb1 rb1
[2018-01-17 11:10] VITALS: TEMP 98
[2018-01-17 11:13] VITALS: BP 113/74; O2SAT 97
--- NOTE | 2018-01-17 21:38 | EKG ---
Test Date: 2018-01-17 Test Time: 07:50:17 Creative Director: GATO MEASUREMENT RESULTS: Intervals: Rate: 81 LA: 172 QRSD: 110 QT: 374 QTc: 434 [place]: P: 34 LA: 172 QRS: -8 T: 29 INTERPRETIVE STATEMENTS: Normal sinus rhythm Normal ECG Compared to ECG 11/18/2009 09:38:11 Sinus bradycardia no longer present Electronically Signed On 01-17-18 21:37:30 CDT by Wilberto Gibson
== END 2018-01-17 11:06 | disposition home or self-care (01) ==
LOC: ER 06:35
DX: N39.0 Urinary tract infection, site not specified (principal); E03.9 Hypothyroidism, unspecified; Z85.51 Personal history of malignant neoplasm of bladder
CPT/HCPCS: 36415; 71045; 74177; 80048; 80076; 81003; 81015; 82150; 82550; 82553; 82962; 83605; 83690; 84145; 84484; 85025; 85610; 85730; 87040; 87077; 87086; 87088; 87186; 93005; 96374; 96375; 99284; J0696; J2405; J7030; Q9967

== ENCOUNTER 2018-11-29 00:14 | Observation (INO) | payer BC, SELFPAY ==
--- OUTSIDE RECORDS SUMMARY | 2018-11-29 00:19 | XMS REPORT | Clinical Summary ---
:1965 Author Organization [facility] Address [address] [place] [address] Care Team Providers Name Role Phone Jhonny Da Silva Primary Care Provider Allergies No Known Allergies Medications Medication Sig Dispensed Refills Start End Date Status Date levothyroxine Take 100 mcg by 0 Active (SYNTHROID, mouth Every morning LEVOTHROID) 100 on an empty MCG tablet stomach. diazePAM (VALIUM) Take 5 mg by mouth 0 Active 5 MG tablet as needed for Anxiety. solifenacin Take 10 mg by mouth 0 Active (VESICARE) 5 MG daily. tablet ondansetron Take by mouth every 0 Active (ZOFRAN) 8 MG 8 (eight) hours as tablet needed for Nausea. promethazine Take 12.5 mg by 0 Active (PHENERGAN) 12.5 mouth every 6 (six) MG tablet hours as needed for Nausea. HYDROcodone-acetam Take 1 tablet by 0 01/08/20 Discontinued inophen (NORCO mouth every 6 (six) 18 5-325) 5-325 mg hours as needed for per tablet Pain. enoxaparin Inject 0.4 mLs (40 12 mL 0 01/08/02/08/20 (LOVENOX) 40 mg total) 8 18 mg/0.4 mL Syrg subcutaneously daily for 30 days. traMADol (ULTRAM) Take 2 tablets (100 30 tablet 0 01/07/01/18/20 50 mg tablet mg total) by mouth 8 18 every 6 (six) hours as needed for Pain for up to 10 days. Max Daily Amount: 400 mg sulfamethoxazole-t Take 1 tablet (160 14 tablet 0 01/15/20 rimethoprim mg of trimethoprim 8 18 (BACTRIM DS) total) by mouth 2 800-160 mg per (two) times daily tablet for 7 days. Active Problems Problem Noted Date Bladder cancer 01/02/2018 Malignant neoplasm of urinary bladder 07/25/2017 Encounters Date Type Specialty Care Team Description 11/14/2018 Hospital Encounter Computed Fernandez Myrick Malignant neoplasm Tomography MD Reg of urinary bladder, 1, [facility] Manuel unspecified site Ct Room ([facility]) 11/14/2018 Hospital Encounter Computed Fernandez Myrick Mal[facility] 11/03/2018 Outside Orders Central Scheduling Fernandez Myrick Malignant neoplasm MD Reg of urinary bladder, unspecified site ([facility]) (Primary Dx) 01/25/2018 Telephone Lianna, Adrianna Mackenzie RD 01/19/2018 Orders Only Urology Danny Vaughn MD 01/02/2018 Surgery Danny Vaughn DISSECTION,LYMPH MD Miguel NODE PELVIC 01/02/2018 Anesthesia Event Yesenia Harris MD 01/02/2018 - Hospital Encounter General Internal Danny Vaughn 01/07/2018 Medicine MD Miguel 12/30/2017 Hospital Encounter Pre-Admission Danny Vaughn MD Resource, Oqmt Preadmit Phone after 11/28/2017 Social History Tobacco Use Types Packs/Day Years Used Date Never Smoker Smokeless Tobacco: Never Used Alcohol Use Drinks/Week oz/Week Comments Yes "very seldom" Sex Assigned at Date Recorded Not on file Job Start Date Occupation Industry Not on file Not on file Not on file Travel History Travel Start Travel End No recent travel history available. Last Filed Vital Signs Vital Sign Reading [...] Not on file Implants Implanted Type Area Research Professional Device Shelf Model / Serial Identifier Expiration / Lot Date Cath Exp [employer]v [employer] Attendant 12.5cmx [id number] - [id number] Pain RAKEL-MADISON 03/08/2020 [id number] / Implanted: Qty: 1 on 01/02/2018 by Danny Vaughn MD Mgmt/Stim / ulator [id number] Cath Exp [employer]v [employer] Breakfast Attendant 12.5cmx [id number] - [id number] Pain RAKEL-MADISON 12/15/2019 [id number] / Implanted: Qty: 1 on 01/02/2018 by Danny Vaughn MD Mgmt/Stim / ulator [id number] Stent,Uret Clinical Trial Educator Diversion 8.4fr Left - [id number] Uro Stent [employer] UROLOGICAL 08/08/2018 [id number] / Implanted: Qty: 1 on 01/02/2018 by Danny Vaughn MD / [id number] Stent Clinical Trial Educator Uret 8.3asx94nf R [id number] - [id number] Uro Stent COOK:UROLOGY 08/08/2018 [id number] / Implanted: Qty: 1 on 01/02/2018 by Danny Vaughn MD / [id number] Procedures Procedure Name Priority Date/Time Associated Comments Diagnosis CT ABDOMEN/PELVIS WITH Routine 11/14/2018 4:35 Malignant neoplasm Results for this IV CONTRAST PM CDT of urinary bladder, procedure are in unspecified site the results (HCC) section. CT CHEST WITH IV Routine 11/14/2018 4:35 Malignant neoplasm Results for this CONTRAST PM CDT of urinary bladder, procedure are in unspecified site the results (HCC) section. POCT-CREATININE Routine 11/14/2018 4:27 Results for this PM CDT procedure are in the results section. INTRAOPERATIVE PATH 10/20/2018 10:00 REPORT - SCAN AM CDT INTRAOPERATIVE PATH 10/20/2018 10:00 REPORT - SCAN AM CDT INTRAOPERATIVE PATH 10/20/2018 10:00 REPORT - SCAN AM CDT INTRAOPERATIVE PATH 10/20/2018 10:00 REPORT - SCAN AM CDT RHYTHM STRIP - SCAN 01/10/2018 6:50 AM CDT URINE CULTURE Routine 01/07/2018 12:20 Results for this PM CDT procedure are in the results section. PHOSPHORUS Routine 01/07/2018 7:36 Results for this AM CDT procedure are in the results section. MAGNESIUM Routine 01/07/2018 7:36 Results for this AM CDT procedure are in the results section. HEMOGLOBIN AND Routine 01/07/2018 7:36 Results for this HEMATOCRIT AM CDT procedure are in the results section. BASIC METABOLIC PANEL Routine 01/07/2018 7:36 Results for this (7) AM CDT procedure are in the results section. PHOSPHORUS Routine 01/06/2018 3:57 Results for this AM CDT procedure are in the results section. MAGNESIUM Routine 01/06/2018 3:57 Results for this AM CDT procedure are in the results section. HEMOGLOBIN AND Routine 01/06/2018 3:57 Results for this HEMATOCRIT AM CDT procedure are in the results section. BASIC METABOLIC PANEL Routine 01/06/2018 3:57 Results for this (7) AM CDT procedure are in the results section. PHOSPHORUS Routine 01/05/2018 4:09 Results for this AM CDT procedure are in the results section. MAGNESIUM Routine 01/05/2018 4:09 Results for this AM CDT procedure are in the results section. HEMOGLOBIN AND Routine 01/05/2018 4:09 Results for this HEMATOCRIT AM CDT procedure are in the results section. BASIC METABOLIC PANEL Routine 01/05/2018 4:09 Results for this (7) AM CDT procedure are in the results section. TRANSFUSION SERVICE 01/04/2018 6:00 REPORT - SCAN PM CDT PHOSPHORUS Routine 01/04/2018 4:29 Results for this AM CDT procedure are in the results section. MAGNESIUM Routine 01/04/2018 4:29 Results for this AM CDT procedure are in the results section. HEMOGLOBIN AND Routine 01/04/2018 4:29 Results for this HEMATOCRIT AM CDT procedure are in the results section. BASIC METABOLIC PANEL Routine 01/04/2018 4:29 Results for this (7) AM CDT procedure are in the results section. PREPARE LEUKO-REDUCED Routine 01/03/2018 11:54 Results for this RBC PM CDT procedure are in the results section. TRANSFUSION SERVICE 01/03/2018 6:00 REPORT - SCAN PM CDT PHOSPHORUS Routine 01/03/2018 5:03 Results for this AM CDT procedure are in the results section. MAGNESIUM Routine 01/03/2018 5:03 Results for this AM CDT procedure are in the results section. HEMOGLOBIN AND Routine 01/03/2018 5:03 Results for this HEMATOCRIT AM CDT procedure are in the results section. BASIC METABOLIC PANEL Routine 01/03/2018 5:03 Results for this (7) AM CDT procedure are in the results section. HEMOGLOBIN AND Routine 01/02/2018 3:48 Results for this HEMATOCRIT PM CDT procedure are in the results section. BASIC METABOLIC PANEL Routine 01/02/2018 3:48 Results for this (7) PM CDT procedure are in the results section. TRANSFUSE Routine 01/02/2018 2:30 LEUKO-REDUCED RED PM CDT BLOOD CELLS HGB/HCT (H&H) - STAT STAT 01/02/2018 12:59 Results for this LAB PM CDT procedure are in the results section. GLUCOSE-STAT LAB STAT 01/02/2018 12:59 Results for this PM CDT procedure are in the results section. POTASSIUM-STAT LAB STAT 01/02/2018 12:59 Results for this PM CDT procedure are in the results section. SODIUM NA-STAT LAB STAT 01/02/2018 12:59 Results for this PM CDT procedure are in the results section. BLOOD GAS, ARTERIAL STAT 01/02/2018 12:59 Results for this PM CDT procedure are in the results section. CALCIUM, IONIZED STAT 01/02/2018 12:59 Results for this PM CDT procedure are in the results section. RRL CRITICAL LABS STAT 01/02/2018 12:59 Results for this (ABG,NA,K,H&H,GLUCOSE) PM CDT procedure are in the results section. TISSUE EXAM AP Routine 01/02/2018 9:27 Results for this AM CDT procedure are in the results section. ANESTHESIA CSE BLOCK Routine 01/02/2018 8:56 Results for this AM CDT procedure are in the results section. CYSTECTOMY,CREATION 01/02/2018 8:00 Malignant neoplasm STUDOR POUCH AM CDT of urinary bladder, unspecified site (HCC) DISSECTION,LYMPH NODE 01/02/2018 8:00 Malignant neoplasm PELVIC AM CDT of urinary bladder, unspecified site (HCC) TYPE AND SCREEN, Routine 01/02/2018 6:33 Results for this AUTOMATED AM CDT procedure are in the results section. BASIC METABOLIC PANEL Routine 01/02/2018 6:33 Results for this (7) AM CDT procedure are in the results section. HEMOGLOBIN Routine 01/02/2018 6:33 Results for this AM CDT procedure are in the results section. after 11/28/[address] Abdomen/Pelvis with IV Contrast (11/14/2018 4:35 PM CDT) Specimen Narrative Performed At FINAL REPORT [facility] CT CHEST, ABDOMEN, AND PELVIS WITH CONTRAST HISTORY:Malignant neoplasm of urinary bladder, bladder cancer status post NAC and radical cystectomy, RPLND and VvorkrL76.9 COMPARISON:CT of the chest, abdomen and pelvis August 14, 2018 and May 16, 2018. TECHNIQUE: CT scan of the chest, abdomen, and pelvis WITH intravenous contrast, using standard protocol. Coronal and sagittal reformats are provided. IV CONTRAST:100 cc of Isovue-300. RADIATION DOSE: Total DLP: 793.01 mGy*cm Dose modulation, iterative reconstruction, and/or weight based adjustment of the mA/kV was utilized to reduce the radiation dose to as low as reasonably achievable. COMPLICATIONS: None FINDINGS: Lines/tubes:Stable appearing right chest port, the tip of the catheter is near the cavoatrial junction. CHEST: Lungs and Airways:The lungs and airways are normal with no focal abnormality demonstrated. Pleura:Mild eventration of the left hemidiaphragm. No effusion or pneumothorax. Heart and mediastinum: The thyroid gland is normal. The heart is normal, trace pericardial fluid. ABDOMEN: HEPATOBILIARY: No focal hepatic lesions.No biliary ductal dilatation. The gallbladder is contracted, no visible stones. SPLEEN: No splenomegaly. PANCREAS: No focal masses or ductal dilatation. ADRENALS:No discrete adrenal nodule. KIDNEYS/URETERS: No hydronephrosis, stones, or solid mass lesions. A 9 mm fluid density in the inferior pole the left kidney, compatible with a simple cyst. Stable two small to characterize hypodensity near the inferior pole of the right kidney, statistically most likely an additional cyst. A previous small right renal stone is no longer present, presumably passed during the interim. PELVIS: Stable appearing post surgical changes, status post radical cystectomy and Bria pouch. PERITONEUM / RETROPERITONEUM: No free air or fluid. LYMPH NODES: No pathologically enlarged lymph node.Multiple nonspecific subcentimeter lymph nodes, for example: A stable right common iliac 6 mm node (axial image 93) and a 7 mm left common femoral node which is slightly increased in size (axial image 114). VESSELS: Scattered atherosclerotic vascular calcifications. GI TRACT: No distention or wall thickening identified.The appendix remains normal. BONES:No aggressive osseous lesion or acute fracture.Stable multiple chronic healed left posterior rib fracture deformities. SOFT TISSUES: Relatively stable left paramedian ventral fat-containing abdominal wall hernia (axial image 88). IMPRESSION: 1.Stable appearing post surgical changes, status post radical cystectomy and Bria pouch. 2.No specific CT evidence of locally recurrent or metastatic disease. Signed: Jordan Guaman MD Report Verified Date/Time:11/15/2018 09:03:01 Procedure Note Interface, External Ris In - 11/15/2018 9:05 AM CDT FINAL REPORT CT CHEST, ABDOMEN, AND PELVIS WITH CONTRAST HISTORY: Malignant neoplasm of urinary bladder, bladder cancer status post NAC and radical cystectomy, RPLND and Bria C67.9 COMPARISON: CT of the chest, abdomen and pelvis August 14, 2018 and May 16, 2018. TECHNIQUE: CT scan of the chest, abdomen, and pelvis WITH intravenous contrast, using standard protocol. Coronal and sagittal reformats are provided. IV CONTRAST: 100 cc of Isovue-300. RADIATION DOSE: Total DLP: 793.01 mGy*cm Dose modulation, iterative reconstruction, and/or weight based adjustment of the mA/kV was utilized to reduce the radiation dose to as low as reasonably achievable. COMPLICATIONS: None FINDINGS: Lines/tubes: Stable appearing right chest port, the tip of the catheter is near the cavoatrial junction. CHEST: Lungs and Airways: The lungs and airways are normal with no focal abnormality demonstrated. Pleura: Mild eventration of the left hemidiaphragm. No effusion or pneumothorax. Heart and mediastinum: The thyroid gland is normal. The heart is normal, trace pericardial fluid. ABDOMEN: HEPATOBILIARY: No focal hepatic lesions. No biliary ductal dilatation. The gallbladder is contracted, no visible stones. SPLEEN: No splenomegaly. PANCREAS: No focal masses or ductal dilatation. ADRENALS: No discrete adrenal nodule. KIDNEYS/URETERS: No hydronephrosis, stones, or solid mass lesions. A 9 mm fluid density in the inferior pole the left kidney, compatible with a simple cyst. Stable two small to characterize hypodensity near the inferior pole of the right kidney, statistically most likely an additional cyst. A previous small right renal stone is no longer present, presumably passed during the interim. PELVIS: Stable appearing post surgical changes, status post radical cystectomy and Bria pouch. PERITONEUM / RETROPERITONEUM: No free air or fluid. LYMPH NODES: No pathologically enlarged lymph node. Multiple nonspecific subcentimeter lymph nodes, for example: A stable right common iliac 6 mm node (axial image 93) and a 7 mm left common femoral node which is slightly increased in size (axial image 114). VESSELS: Scattered atherosclerotic vascular calcifications. GI TRACT: No distention or wall thickening identified. The appendix remains normal. BONES: No aggressive osseous lesion or acute fracture. Stable multiple chronic healed left posterior rib fracture deformities. SOFT TISSUES: Relatively stable left paramedian ventral fat-containing abdominal wall hernia (axial image 88). IMPRESSION: 1. Stable appearing post surgical changes, status post radical cystectomy and Bria pouch. 2. No specific CT evidence of locally recurrent or metastatic disease. Signed: Jordan Guaman MD Report Verified Date/Time: 11/15/2018 09:03:01 Performing Organization Address City/State/Zipcode Phone Number [facility] CT Chest with IV Contrast (11/14/2018 4:35 PM CDT) Specimen Narrative Performed At FINAL REPORT [facility] CT CHEST, ABDOMEN, AND PELVIS WITH CONTRAST HISTORY:Malignant neoplasm of urinary bladder, bladder cancer status post NAC and radical cystectomy, RPLND and QawpebT16.9 COMPARISON:CT of the chest, abdomen and pelvis August 14, 2018 and May 16, 2018. TECHNIQUE: CT scan of the chest, abdomen, and pelvis WITH intravenous contrast, using standard protocol. Coronal and sagittal reformats are provided. IV CONTRAST:100 cc of Isovue-300. RADIATION DOSE: Total DLP: 793.01 mGy*cm Dose modulation, iterative reconstruction, and/or weight based adjustment of the mA/kV was utilized to reduce the radiation dose to as low as reasonably achievable. COMPLICATIONS: None FINDINGS: Lines/tubes:Stable appearing right chest port, the tip of the catheter is near the cavoatrial junction. CHEST: Lungs and Airways:The lungs and airways are normal with no focal abnormality demonstrated. Pleura:Mild eventration of the left hemidiaphragm. No effusion or pneumothorax. Heart and mediastinum: The thyroid gland is normal. The heart is normal, trace pericardial fluid. ABDOMEN: HEPATOBILIARY: No focal hepatic lesions.No biliary ductal dilatation. The gallbladder is contracted, no visible stones. SPLEEN: No splenomegaly. PANCREAS: No focal masses or ductal dilatation. ADRENALS:No discrete adrenal nodule. KIDNEYS/URETERS: No hydronephrosis, stones, or solid mass lesions. A 9 mm fluid density in the inferior pole the left kidney, compatible with a simple cyst. Stable two small to characterize hypodensity near the inferior pole of the right kidney, statistically most likely an additional cyst. A previous small right renal stone is no longer present, presumably passed during the interim. PELVIS: Stable appearing post surgical changes, status post radical cystectomy and Bria pouch. PERITONEUM / RETROPERITONEUM: No free air or fluid. LYMPH NODES: No pathologically enlarged lymph node.Multiple nonspecific subcentimeter lymph nodes, for example: A stable right common iliac 6 mm node (axial image 93) and a 7 mm left common femoral node which is slightly increased in size (axial image 114). VESSELS: Scattered atherosclerotic vascular calcifications. GI TRACT: No distention or wall thickening identified.The appendix remains normal. BONES:No aggressive osseous lesion or acute fracture.Stable multiple chronic healed left posterior rib fracture deformities. SOFT TISSUES: Relatively stable left paramedian ventral fat-containing abdominal wall hernia (axial image 88). IMPRESSION: 1.Stable appearing post surgical changes, status post radical cystectomy and Bria pouch. 2.No specific CT evidence of locally recurrent or metastatic disease. Signed: Jordan Guaman MD Report Verified Date/Time:11/15/2018 09:03:01 Procedure Note Interface, External Ris In - 11/15/2018 9:05 AM CDT FINAL REPORT CT CHEST, ABDOMEN, AND PELVIS WITH CONTRAST HISTORY: Malignant neoplasm of urinary bladder, bladder cancer status post NAC and radical cystectomy, RPLND and Bria C67.9 COMPARISON: CT of the chest, abdomen and pelvis August 14, 2018 and May 16, 2018. TECHNIQUE: CT scan of the chest, abdomen, and pelvis WITH intravenous contrast, using standard protocol. Coronal and sagittal reformats are provided. IV CONTRAST: 100 cc of Isovue-300. RADIATION DOSE: Total DLP: 793.01 mGy*cm Dose modulation, iterative reconstruction, and/or weight based adjustment of the mA/kV was utilized to reduce the radiation dose to as low as reasonably achievable. COMPLICATIONS: None FINDINGS: Lines/tubes: Stable appearing right chest port, the tip of the catheter is near the cavoatrial junction. CHEST: Lungs and Airways: The lungs and airways are normal with no focal abnormality demonstrated. Pleura: Mild eventration of the left hemidiaphragm. No effusion or pneumothorax. Heart and mediastinum: The thyroid gland is normal. The heart is normal, trace pericardial fluid. ABDOMEN: HEPATOBILIARY: No focal hepatic lesions. No biliary ductal dilatation. The gallbladder is contracted, no visible stones. SPLEEN: No splenomegaly. PANCREAS: No focal masses or ductal dilatation. ADRENALS: No discrete adrenal nodule. KIDNEYS/URETERS: No hydronephrosis, stones, or solid mass lesions. A 9 mm fluid density in the inferior pole the left kidney, compatible with a simple cyst. Stable two small to characterize hypodensity near the inferior pole of the right kidney, statistically most likely an additional cyst. A previous small right renal stone is no longer present, presumably passed during the interim. PELVIS: Stable appearing post surgical changes, status post radical cystectomy and Bria pouch. PERITONEUM / RETROPERITONEUM: No free air or fluid. LYMPH NODES: No pathologically enlarged lymph node. Multiple nonspecific subcentimeter lymph nodes, for example: A stable right common iliac 6 mm node (axial image 93) and a 7 mm left common femoral node which is slightly increased in size (axial image 114). VESSELS: Scattered atherosclerotic vascular calcifications. GI TRACT: No distention or wall thickening identified. The appendix remains normal. BONES: No aggressive osseous lesion or acute fracture. Stable multiple chronic healed left posterior rib fracture deformities. SOFT TISSUES: Relatively stable left paramedian ventral fat-containing abdominal wall hernia (axial image 88). IMPRESSION: 1. Stable appearing post surgical changes, status post radical cystectomy and Bria pouch. 2. No specific CT evidence of locally recurrent or metastatic disease. Signed: Jordan Guaman MD Report Verified Date/Time: 11/15/2018 09:03:01 Performing Organization Address [facility] Phone Number GE RIS POC-Creatinine (11/14/2018 4:27 PM CDT) POC-Creatinine 1.3Comment: TESTED AT [facility] 0.6 - 1.3 mg/dL [place] [id number] [facility] [employer] [facility] [id number] POC-EGFR 58 mL/min/1.73M2 [facility] Specimen Blood Performing Organization Address [facility] Phone Number [address] [address] [phone] CENTER INTRAOPERATIVE PATH REPORT - SCAN (10/20/2018 10:00 AM CDT)Only the most recent of4 resultswithin the time period is included. Narrative Performed At RHYTHM STRIP - SCAN (01/10/2018 6:50 AM CDT) Narrative Performed At Urine culture (01/07/2018 12:20 PM CDT) Result >100,000 col/mL Enterococcus [facility] species (A) [facility] [place] Specimen Urine - Urine, Urostomy Organism Antibiotic Method Susceptibility Enterococcus species Ampicillin <=2: Susceptible Enterococcus species Linezolid 2: Susceptible Enterococcus species Nitrofurantoin <=16: Susceptible Enterococcus species Tetracycline <=1: Susceptible Enterococcus species Vancomycin 1: Susceptible Performing Organization Address [facility] Phone Number [address] [address] [place] Hemoglobin and hematocrit POD # 1 (01/07/2018 7:36 AM CDT)Only the most recent of6 resultswithin the time period is included. Hemoglobin 8.3 (L) 13.7 - 17.5 GM/DL [facility] Hematocrit 25.5 (L) 40.1 - 51.0 % [facility] Specimen Blood Performing Organization Address City/[facility]/Zipcode Phone Number [facility] [address], [place] [id number] [place] Phosphorus (01/07/2018 7:36 AM CDT)Only the most recent of5 resultswithin the time period is included. Phosphorus 3.0 2.3 - 4.7 mg/dL [facility] Specimen Blood Narrative Performed At Before arterial line is discontinued [facility] Performing Organization Address City/State/Zipcode Phone Number [facility] [address] [place] [address] [place] Magnesium (01/07/2018 7:36 AM CDT)Only the most recent of5 resultswithin the time period is included. Magnesium 1.6 1.6 - 2.6 mg/dL [facility] Specimen Blood Narrative Performed At Before arterial line is discontinued [facility] Performing Organization Address [facility] Phone Number [facility] [address], [place] [phone] [place] Basic Metabolic Panel - POD 1 (01/07/2018 7:36 AM CDT)Only the most recent of7 resultswithin the time period is included. Sodium 139 136 - 145 meq/L [facility] Potassium 3.5 3.5 - 5.1 meq/L [facility] Chloride 106 98 - 107 meq/L [facility] CO2 26 22 - 29 meq/L [facility] BUN 9 7 - 21 mg/dL [facility] Creatinine 0.85 0.57 - 1.25 mg/dL [facility] Glucose 97 70 - 105 mg/dL [facility] Calcium 8.4 8.4 - 10.2 mg/dL [facility] EGFR 95Comment: ESTIMATED GFR IS mL/min/1.73 sq m [facility] NOT ACCURATE CREATININE MEDICAL CENTER CLEARANCE IN PREDICTING GLOMERULAR FILTRATION RATE. ESTIMATED GFR IS NOT APPLICABLE FOR DIALYSIS PATIENTS. Specimen Blood Narrative Performed At Before arterial line is discontinued [facility] Performing Organization Address [facility] Centercode Phone Number [address] [address] [phone] CENTER TRANSFUSION SERVICE REPORT - SCAN (01/04/2018 6:00 PM CDT)Only the most recent of2 resultswithin the time period is included. Narrative Performed At Prepare Leuko-Red RBC (01/03/2018 11:54 PM CDT) CROSSMATCH COMPATIBLE SAFETRACE TX Unit ABO AB Neg SAFETRACE TX UNIT NUMBER [id number] [place]AFET[place]ACE [place] Status READY SAFETRACE TX Blood Bank Product RED BLOOD CELLS SAFETRACE TX PRODUCT CODE [id number] SAFETRACE TX CROSSMATCH COMPATIBLE SAFETRACE TX Unit ABO AB Neg SAFETRACE TX UNIT NUMBER [id number] SAFETRACE TX Status TRANSFUSED SAFETRACE TX Blood Bank Product RED BLOOD CELLS SAFETRACE [place] PRODUCT CODE [id number] SAFET[place]ACE [place] Specimen Other Performing Organization Address [facility] Phone Number SAFETRACE [place] Transfuse Leuko-Red RBC (01/02/2018 2:30 PM CDT)Potassium-Stat Lab (01/02/2018 12:59 PM CDT) Potassium 4.1 3.6 - 5.5 meq/L [facility] Specimen Blood, Arterial Performing Organization Address City/[facility]/Zipcode Phone Number [address] [address] [phone] CENTER Sodium Na-Stat Lab (01/02/2018 12:59 PM CDT) Sodium 137 135 - 148 meq/L [facility] Specimen Blood, Arterial Performing Organization Address [facility]/Zipcode Phone Number [address] [address] CENTER Glucose-Stat Lab (01/02/2018 12:59 PM CDT) Glucose 121 (H) 70 - 110 mg/dL [facility] Specimen Blood, Arterial Performing Organization Address [facility] Phone Number [address] [address] [place] HGB/HCT (H&H)-Stat Lab (01/02/2018 12:59 PM CDT) Hemoglobin 7.7 (L) 13.0 - 16.8 g/dL [facility] Hematocrit 23.0 (L) 40.0 - 50.0 % [facility] Specimen Blood, Arterial Performing Organization Address [facility] Phone Number [address] [address] [place] Calcium, Ionized (01/02/2018 12:59 PM CDT) Calcium, Ion 1.08 (L) 1.12 - 1.27 mmol/L [facility] pH, Blood 7.39 [facility] Specimen Blood Performing Organization Address [facility] Phone Number [address] [address] [place] Blood gas, arterial (01/02/2018 12:59 PM CDT) pH, Arterial 7.39 7.35 - 7.45 [facility] pCO2, Arterial 36 35 - 45 mmHg [facility] pO2, Arterial 241 (H) 80 - 90 mmHg [facility] O2 Sat, Arterial 99.5 (H) 96.0 - 97.0 % [facility] HCO3, Arterial 21 21 - 29 mmol/L [facility] Base Excess, Arterial -3.2 (L) -2.0 - 3.0 mmol/L [facility] Patient Temperature 37.0 C [facility] FIO2 100.0 % [facility] Specimen Blood, Arterial Performing Organization Address City/State/Zipcode Phone Number [facility] [address] [place] [address] CENTER Tissue Exam (01/02/2018 9:27 AM CDT) Case Report Surgical Pathology Report Case: [id number] [facility] Authorizing Provider:Danny Vaughn MDCollected: 01/02/2018 0944 [facility] Ordering Location: [facility] Received: 01/02/2018 0950 SERVICES Pathologist: Abdulaziz [...] DIAGNOSIS A. LYMPH NODE, DISTAL PARA-AORTIC, DISSECTION: 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 LYMPH NODE, LEFT COMMON ILIAC, DISSECTION: [...] PATHOLOGIC DIAGNOSIS Signing Pathologist Direct Phone Line: [phone] SYNOPTIC REPORT URINARY BLADDER: Cystectomy, Anterior Exenteration( Bladder Res - All Specimens) [facility] SPECIMEN Procedure:Radical cystoprostatectomy TUMOR Tumor Site:Left lateral [...] (pT):pT0 Regional Lymph Nodes (pN):pN3 CPT Code(s) 36715, 57036 X 9, 61583 X 4, [facility] [address]43 X 11 [facility] CLINICAL HISTORY Bladder cancer [facility] SPECIMEN SOURCE A. Pelvic lymph nodes, [facility] para-aortic lymph nodes; B. [facility] Left common iliac lymph node; C. Distal [...] x 1.2 x 0.4 cm. [address] l[address] [facility] ph nodes are identified measuring from 0.4 x 0.3 x 0.2 cm to 07 x 0.5 x 0.3 cm. The two lymph nodes are bisected and touch preparations are performed. The larger lymph node is submitted in cassettes [id number] [facility] [id number], the smaller lymph node is submitted [...] bladder and prostate, blue-left bladder and prostate. [employer] sections are submitted as follows: R1, left ureter resection margin; R2, right ureter resection margin; R3, left ureteral orifice; R4, right ureteral orifice; R5, left ureter representati ve sections; R6, right ureter airport representative sections; R7-R23, left lateral bladder wall scar, end submitted; R24, R25, right lateral wall airport representative sections; R26, R27, airport representative sections of p osterior wall; R28, R29, airport representative sections of bladder dome; R30, airport representative section of trigone; R31, airport representative section of anterior wall ; R32, prostate apex; R33-37, prostate from apex to base; R38, seminal vesicles. DD/ew S. Labeled "small bowel resection" consists of a segment of small bowel measuring 3 cm in length x 1.5 cm in diameter. The specimen is grossly unremarkable. Section code: S1, resection margin en face; S2, random section of small bowel. CG/pl INTRAOPERATIVE FROZEN SECTION DIAGNOSIS: [facility] CONSULTATION [id number]: DISTAL PARA-AORTIC LYMPH NODE, EXCISION: [facility] - TUMOR PRESENT IN LYMPH NODE - REPORTED BY DR. ARTHUR TO DR. VAUGHN AT 10:20 AM [id number]: LYMPH NODE, PROXIMAL LIMIT OF DISSECTION PARAORTA, [...] VAUGHN AT 11:45 AM MICROSCOPIC DESCRIPTION Performed. [facility] CENTER Specimen Tissue Tissue - Structure of lymph node (body structure) Tissue - Structure of lymph node (body structure) Tissue - Structure of lymph node (body structure) Tissue - Structure of lymph node (body structure) Tissue - Structure of lymph node (body structure) Tissue - Structure of lymph node (body structure) Tissue - Structure of lymph node (body structure) Tissue - Structure of lymph node (body structure) Tissue - Structure of lymph node (body structure) Tissue - Structure of lymph node (body structure) Tissue - Structure of lymph node (body structure) Tissue - Structure of lymph node (body structure) Tissue - Structure of lymph node (body structure) Tissue - Structure of lymph node (body structure) Tissue - Structure of right ureter (body structure) Tissue - Structure of left ureter (body structure) Tissue - Urinary bladder structure (body structure) Tissue - Small intestinal structure (body structure) Performing Organization Address City/State/Zipcode Phone Number [address] [address] CENTER ANESTHESIA CSE BLOCK (01/02/2018 8:56 AM CDT) Narrative Performed At Oliver Hernandez 01/02/20188:56 AM CSE Block Patient location during procedure: OR Start time: 01/02/2018 8:10 AM End time: 01/02/2018 8:19 AM Reason for block: procedure for pain, at surgeon's request and post-op pain management Staffing Anesthesiologist: JACQUELINE COATES Resident/MILLINERY COPYIST: OLIVER HERNANDEZ Performed by: resident/MILLINERY COPYIST Preanesthetic Checklist Completed: patient identified, site marked, surgical consent, pre-op evaluation, timeout performed, IV checked, risks and benefits discussed and monitors and equipment checked CSE Patient position: sitting Prep: ChloraPrep Patient monitoring: heart rate, media monitor and continuous pulse ox Approach: midline Spinal [...] Oliver Hernandez MD Anesthesia- PGY 3 [facility] Procedure Note Oliver Hernandez MD - 01/02/2018 8:55 AM CDT CSE Block Patient location during procedure: OR Start time: 01/02/2018 8:10 AM End time: 01/02/2018 8:19 AM Reason for block: procedure for pain, at surgeon's request and post-op pain management Staffing Anesthesiologist: JACQUELINE COATES Resident/MILLINERY COPYIST: OLIVER HERNANDEZ Performed by: resident/MILLINERY COPYIST Preanesthetic Checklist Completed: patient identified, site marked, surgical consent, pre-op evaluation , timeout performed, IV checked, risks and benefits discussed and monitors and equipment checked CSE Patient position: sitting Prep: ChloraPrep Patient monitoring: heart rate, media monitor and continuous pulse ox Approach: midline Spinal [...] procedure. Oliver Hernandez MD Anesthesia- PGY 3 [facility] Type and screen, automated (01/02/2018 6:33 AM CDT) ABO/RH AUTOMATED (BEAKER) AB NEGATIVE [facility] Ab Scrn NEGATIVE [facility] Specimen Blood Performing Organization Address City/State/Zipcode Phone Number [facility] [address] [place] [address] Hemoglobin (01/02/2018 6:33 AM CDT) Hemoglobin 11.3 (L) 13.7 - 17.5 GM/DL [facility] Specimen Blood Narrative Performed At Check DOS [facility] Performing Organization Address City/State/Zipcode Phone Number [facility] [address] [place] [address] CENTER after 11/28/2017 Insurance Payer Benefit Plan / Subscriber ID Type Phone Address Group BLUE CROSS/BLUE [employer]BS PPO POS EPO xxxxxxxxxxxx PPO [phone] [address] [place] [address] Advance Directives For more information, please contact:[facility] [place], [place] [phone] Code Status Date Activated Date Inactivated Comments Full Code 01/02/2018 4:21 PM 01/07/2018 7:49 PM This code status was determined by: Patient Full Code 08/16/2017 2:09 PM 08/16/2017 4:18 PM This code status was determined by: Patient
--- OUTSIDE RECORDS SUMMARY | 2018-11-29 00:19 | XMS REPORT ---
:1965 [facility] [address] [place] [address] Care Team Providers Name Role Phone BERTRAND HERNANDEZ Unavailable Unavailable DANNY VAUGHN Unavailable Unavailable Problems This patient has no known problems. Allergies, Adverse Reactions, Alerts This patient has no known allergies or adverse reactions. Medications This patient has no known medications. Results Test Description Test Time Test Comments Text Results Atomic Results Result Comments CT, CHEST, WITH IV 2018-11-15 09:03:[address] CONTRAST CHEST, ABDOMEN, AND PELVIS WITH CONTRAST HISTORY: Malignant neoplasm of urinary bladder, bladder cancer status post NAC and radical cystectomy, RPLND and Bria C67.9 COMPARISON: CT of the chest, abdomen and pelvis August 14, 2018 and May 16, 2018.TECHNIQUE:CT scan of the chest, abdomen, and pelvis WITH intravenous contrast, using standard protocol.Coronal and sagittal reformats are provided. IV CONTRAST: 100 cc of Isovue-300. RADIATION DOSE: Total DLP: 793.01 mGy*cmDose modulation, iterative reconstruction, and/or weight based adjustment of the mA/kV was utilized to reduce the radiation dose to as low as reasonably achievable. COMPLICATIONS: None FINDINGS:Lines/tubes: Stable appearing right chest port, the tip of the catheter is near the cavoatrial junction. CHEST:Lungs and Airways: The lungs and airways are normal with no focal abnormality demonstrated. Pleura: Mild eventration of the left hemidiaphragm. No effusion or pneumothorax.Heart and mediastinum: The thyroid gland is normal.The heart is normal, trace pericardial fluid. ABDOMEN:HEPATOBILIARY: No focal hepatic lesions. No biliary ductal dilatation. The gallbladder is contracted, no visible stones.SPLEEN: No splenomegaly.PANCREAS: No focal masses or ductal dilatation.ADRENALS: No discrete adrenal nodule.KIDNEYS/URETERS: No hydronephrosis, stones, or solid mass lesions.A 9 mm fluid density in the inferior pole the left kidney, compatible with a simple cyst.Stable two small to characterize hypodensity near the inferior pole of the right kidney, statistically most likely an additional cyst.A previous small right renal stone is no longer present, presumably passed during the interim. PELVIS:Stable appearing post surgical changes, status post radical cystectomy and Bria pouch. PERITONEUM / RETROPERITONEUM: No free air or fluid.LYMPH NODES: No pathologically enlarged lymph node. Multiple nonspecific subcentimeter lymph nodes, for example: A stable right common iliac 6 mm node (axial image 93) and a 7 mm left common femoral node which is slightly increased in size (axial image 114).VESSELS: Scattered atherosclerotic vascular calcifications. GI TRACT: No distention or wall thickening identified. The appendix remains normal.BONES: No aggressive osseous lesion or acute fracture. Stable multiple chronic healed left posterior rib fracture deformities.SOFT TISSUES: Relatively stable left paramedian ventral fat-containing abdominal wall hernia (axial image 88). IMPRESSION: 1. Stable appearing post surgical changes, status post radical cystectomy and Bria pouch.2. No specific CT evidence of locally recurrent or metastatic disease. Signed: Jordan Guaman MDReport Verified Date/Time: 11/15/2018 09:03:01 , ABDOMEN 2018-11-15 09:03:[address] CHEST, ABDOMEN, AND PELVIS WITH CONTRAST HISTORY: Malignant neoplasm of urinary bladder, bladder cancer status post NAC and radical cystectomy, RPLND and Bria C67.9 COMPARISON: CT of the chest, abdomen and pelvis August 14, 2018 and May 16, 2018.TECHNIQUE:CT scan of the chest, abdomen, and pelvis WITH intravenous contrast, using standard protocol.Coronal and sagittal reformats are provided. IV CONTRAST: 100 cc of Isovue-300. RADIATION DOSE: Total DLP: 793.01 mGy*cmDose modulation, iterative reconstruction, and/or weight based adjustment of the mA/kV was utilized to reduce the radiation dose to as low as reasonably achievable. COMPLICATIONS: None FINDINGS:Lines/tubes: Stable appearing right chest port, the tip of the catheter is near the cavoatrial junction. CHEST:Lungs and Airways: The lungs and airways are normal with no focal abnormality demonstrated. Pleura: Mild eventration of the left hemidiaphragm. No effusion or pneumothorax.Heart and mediastinum: The thyroid gland is normal.The heart is normal, trace pericardial fluid. ABDOMEN:HEPATOBILIARY: No focal hepatic lesions. No biliary ductal dilatation. The gallbladder is contracted, no visible stones.SPLEEN: No splenomegaly.PANCREAS: No focal masses or ductal dilatation.ADRENALS: No discrete adrenal nodule.KIDNEYS/URETERS: No hydronephrosis, stones, or solid mass lesions.A 9 mm fluid density in the inferior pole the left kidney, compatible with a simple cyst.Stable two small to characterize hypodensity near the inferior pole of the right kidney, statistically most likely an additional cyst.A previous small right renal stone is no longer present, presumably passed during the interim. PELVIS:Stable appearing post surgical changes, status post radical cystectomy and Bria pouch. PERITONEUM / RETROPERITONEUM: No free air or fluid.LYMPH NODES: No pathologically enlarged lymph node. Multiple nonspecific subcentimeter lymph nodes, for example: A stable right common iliac 6 mm node (axial image 93) and a 7 mm left common femoral node which is slightly increased in size (axial image 114).VESSELS: Scattered atherosclerotic vascular calcifications. GI TRACT: No distention or wall thickening identified. The appendix remains normal.BONES: No aggressive osseous lesion or acute fracture. Stable multiple chronic healed left posterior rib fracture deformities.SOFT TISSUES: Relatively stable left paramedian ventral fat-containing abdominal wall hernia (axial image 88). IMPRESSION: 1. Stable appearing post surgical changes, status post radical cystectomy and Bria pouch.2. No specific CT evidence of locally recurrent or metastatic disease. Signed: Jordan Guaman MDReport Verified Date/Time: 11/15/2018 09:03:01 -CREATININE 2018-11-14 16:32:00 Test Item Value Reference Range Comments POC-CREATININE (JACQUELINEKEILY) (test 1.3 mg/dL 0.6-1.3 TESTED AT [facility] 7200 aqnt=8759) [facility] [address] POC-EGFR (MARCIE) (test 58 mL/min/1.73M2 gugj=1153) TISSUE [id number] 16:33:00Surgical Pathology Report Case: [id number] Authorizing Provider: Danny Vaughn MD Collected: 01/02/2018 0944 Ordering Location: [facility] Received: 01/02/2018 0950 SERVICES Pathologist: Abdulaziz Daniels MD Specimens: A) - Lymph Node, DISTAL PARA AORTIC LYMPH NODE B) - Lymph Node, LEFT COMMOM ILIAC LYMPH NODE C) - LymphNode, DISTAL PARA AORTIC LYMPH NODE D) - Lymph Node, LEFT EXTERNAL ILIAC LYMPH NODE E) - Lymph Node,LEFT OBTURATOR LYMPH NODE F) - Lymph Node, LEFT INTERNAL ILIAC LYMPH NODE G) - Lymph Node, RIGHTEXTERNAL ILIAC LYMPH NODE H) - Lymph Node, RIGHT OBTURATOR LYMPH NODE I) - Lymph Node, RIGHT COMMON ILIAC LYMPH NODE J) - Lymph Node, RIGHT INTERNALILIAC LYMPH NODE K) - Lymph Node, PRE [...] PARA-AORTIC, DISSECTION: - THREE OF FOUR LYMPH NODESPOSITIVE FOR UROTHELIAL CARCINOMA (3/4)B. LYMPH NODE, LEFT COMMON ILIAC, DISSECTION: - SEVEN OF EIGHT LYMPH NODES POSITIVE FOR UROTHELIAL CARCINOMA (7/8)C. LYMPH NODE, DISTAL PARA-AORTIC, EXCISION: - BENIGN ADIPOSE TISSUED. LYMPH NODE, LEFT EXTERNAL ILIAC, DISSECTION: - TWO OF TWO LYMPH NODES POSITIVEFOR UROTHELIAL CARCINOMA (2/2)E. LYMPH NODE, LEFT OBTURATOR, DISSECTION: - FOUR OF FOUR LYMPH NODES POSITIVE FOR UROTHELIAL CARCINOMA (4/4)F. LYMPH NODE, LEFT INTERNAL ILIAC , DISSECTION: - ONE BENIGN LYMPH NODE (0/1)G. LYMPH NODE, RIGHT EXTERNAL ILIAC , DISSECTION: - THREE BENIGN LYMPH NODES (0/3)H. LYMPH NODE, RIGHT OBTURATOR, DISSECTION: - THREE BENIGN LYMPH NODES (0/3)I. LYMPH NODE, RIGHT COMMON ILIAC, DISSECTION: - FOUR BENIGN LYMPH NODES (0/4)J. LYMPH NODE, RIGHT INTERNAL ILIAC, DISSECTION: - ONE OF SIX LYMPH NODES, POSITIVE FOR UROTHELIAL CARCINOMA (1/6)K. LYMPH NODE, PRESACRAL, DISSECTION: -ONE BENIGN LYMPH NODES (0/1)L. LYMPH NODE, DISTAL VENA CAVA, DISSECTION: - THREE OF FOUR LYMPH NODES, POSITIVE FOR UROTHELIAL CARCINOMA (3/4)M. LYMPH NODE, PROXIMAL LIMIT OF DISSECTION PARA AORTA , DISSECTION: - TWO OF FOUR LYMPH NODES, [...] PATHOLOGIC DIAGNOSIS Signing Pathologist Direct Phone Line: Preliminary result electronically signed by Abdulaziz Daniels MD on at 1:36 PMURINARY BLADDER: Cystectomy, Anterior Exenteration (Bladder Res - All Specimens)SPECIMEN Procedure: Radical cystoprostatectomy TUMOR Tumor Site: Left lateral wall Histologic Type: Papillary urothelial carcinoma, invasive Histologic Grade: High-grade Tumor Size: Cannot be determined: No residual tumor present Tumor Extent: Tumor Extension: No evidence of primary tumor Accessory Findings: Lymphovascular Invasion : Not identified Tumor Configuration: Cannot be determined [...] (pTNM, AJCC 8th Edition) TNM Descriptors: y (post-treatment ) Primary Tumor (pT): pT0 Regional Lymph Nodes (pN): pN3 95794, 87885 X 9, 44827 X 4, 17945 X 11Bladder cancerA. Pelvic lymph nodes, para- aortic lymph nodes; B. Left common iliac lymph [...] limit of dissection, para aorta; N. pre-aortic lymphnodes; O. Proximal periaortic lymph node; P. Right ureter; Q. Left ureter; R. urinary bladder, radical cystoprostatectomy; S. small bowel resectionA. Received fresh for intraoperative consultation labeled with the patient's name and "distal para- aortic lymph node" is a single piece of everett-yellow adipose tissue measuring 1.3 x 1.2 x 0.4 cm. Two lymph nodes are identified measuring from 0.4 x 0.3 x 0.2 cm to 07 x 0.5 x 0.3 cm. The two lymph nodes are bisected and touch preparations are performed. Thelarger lymph node is submitted in cassettes A1FS- A2FS, the smaller lymph node is submitted entirely [...] 1 x 0.6 x 0.3 cm. There isno lymph node tissue palpated. The specimen sis entirely submitted C1. D labeled "left external iliac lymph node" consists of adipose tissue measuring 3.5 x 2.5 x 1 cm in aggregate yielding two everett- redlymph nodes measuring up to 1 cm. The [...] E2, one lymph node bisected; E3 and E4 , largest lymph node serially sectioned; E5 through E8, remainder of adipose tissue. F labeled "left internal iliac lymph node" consists ofsmall portion of adipose tissue measuring 1.4 x 1 x 0.5 cm yielding no distinct lymph node tissue. The specimen is entirely submitted F1. G labeled "right external iliac lymph node" consists of adiposetissue measuring 4 x 2 x 1 cm yielding a single everett-finney lymph node measuring 0.4 cm. Lymph node is bisected, submitted G1. Remainder of the fat is submitted G2 through G4. H labeled "right obturator lymph node" consists of adipose tissue measuring 4 x 4 x 1.5 cm yielding four everett-finney and fatty lymphnodes measuring up to 6.2 cm. The specimen [...] 1 cm yielding two everett-red lymph nodes measuring0.4 and 0.5 cm. The specimen is entirely submitted as follows: I1, two lymph nodes; I2, remainder offat.J labeled "right internal iliac lymph node consists [...] K1. Remainder of the fat submitted K2. Llabeled "distal vena cava lymph node" consists of adipose tissue measuring 2 x 2 x 0.5 cm yielding atan-red fatty lymph node measuring 2 cm in greatest dimension. The specimen is entirely submitted asfollows: L1, lymph node ; L2, remainder of fat. M. Received fresh [...] specimen including an intact bladder measuring 10 cmx 9.5 cm x 4 cm, attached bilateral ureter stumps (left 4.5 x 0.3, right 3.8 x 0.3 cm) and an attached prostate measuring 3.4 cm x 3.3 cm x 1.7 cm. The bladder is opened to reveal a everett-white scar along the left lateral wall measuring 3.5 x 0.8 cm with a depth of 0.3 cm. The tumor infiltrates into themuscularis propria and is 1.2 cm from the [...] Black-right bladder and prostate, blue-left bladder and prostate.Chemical Laboratory Technician sections are submitted as follows: R1, left ureter resection margin; R2, right ureter resection margin; R3, left ureteral orifice; R4, right ureteral orifice; R5, left ureter event sales representative sections; R6,right ureter event sales representative sections; R7 -R23, left lateral bladder wall scar, end submitted; R24, R25, right lateral wall event sales representative sections; R26, R27, event sales representative sections of posterior wall; R28, R29, event sales representative sections of bladder dome; R30, event sales representative section of trigone; R31, event sales representative section of anterior wall; R32, prostate apex; R33-37, prostate from apex to base; R38, seminal vesicles. DD/ewS. Labeled "small bowel resection" consists of a segment of small bowel measuring 3cm in length x 1.5 cm in diameter. The specimen is grossly unremarkable. Section code: S1, resectionmargin en face; S2, random section of small bowel. CG /plFROZEN SECTION DIAGNOSIS:[id number]: DISTAL PARA-AORTIC LYMPH NODE, EXCISION: - TUMOR PRESENT IN LYMPH NODE - REPORTED BY DR. ARTHUR TO DR. VAUGHN AT 10:20 [id number]: LYMPH NODE, PROXIMAL LIMIT OF DISSECTION PARAORTA, EXCISION: - TUMOR PRESENT IN ONE OF TWO LYMPH NODES - REPORTED BY DR. ARTHUR TO DR. VAUGHN AT 11:45 AMP1FS: URETER, RIGHT DISTAL, EXCISION OF MARGIN: - NEGATIVE FOR HIGH GRADE DYSPLASIA OR CARCINOMA - REPORTED BY DR. SANDHYA VAUGHN AT 11:45 AMQ1FS: URETER, LEFT DISTAL, EXCISION OF MARGIN: - NEGATIVE FOR HIGH GRADE DYSPLASIA OR CARCINOMA - REPORTED BY DR. SANDHYA VAUGHN AT 11:45 AM Performed.URINE [id number] 12:19:00 Test Item Value Reference Range Comments CULTURE (WeVideo) (test ENTEROCOCCUS SPECIES >100,000 col/mL bplq=2230) Enterococcus species Ampicillin (test code=26) Linezolid (test code=40) Nitrofurantoin (test code=23) Tetracycline (test code=2) Vancomycin (test code=13) [id number] 08:23:00 Test Item Value Reference Range Comments PHOSPHORUS (BEAKER) (test lvvd=297) 3.0 mg/dL 2.3-4.7 Before arterial line is [id number] 08:23:00 Test Item Value Reference Range Comments MAGNESIUM (BEAKER) (test apbs=280) 1.6 mg/dL 1.6-2.6 Before arterial line is discontinuedBASIC METABOLIC [id number] 08:23:00 Test Item Value Reference Range Comments SODIUM (BEAKER) (test 139 meq/L 136-145 uwok=725) POTASSIUM (BEAKER) (test 3.5 meq/L 3.5-5.1 hvyh=978) CHLORIDE (BEAKER) (test 106 meq/L 98-107 sttf=443) CO2 (BEAKER) (test 26 meq/L 22-29 kzra=078) BLOOD UREA NITROGEN 9 mg/dL 7-21 (BEAKER) (test mtuj=709) CREATININE (BEAKER) (test 0.85 mg/dL 0.57-1.25 vsxg=068) GLUCOSE RANDOM (BEAKER) 97 mg/dL 70-105 (test xclm=496) CALCIUM (BEAKER) (test 8.4 mg/dL 8.4-10.2 jkjn=316) EGFR (BEAKER) (test 95 mL/min/1.73 sq m ESTIMATED GFR IS NOT ajmr=3373) ACCURATE CREATININE CLEARANCE IN PREDICTING GLOMERULAR FILTRATION RATE. ESTIMATED GFR IS NOT APPLICABLE FOR DIALYSIS PATIENTS. Before arterial line is discontinuedHEMOGLOBIN AND [id number] 07:53:00 Test Item Value Reference Range Comments HEMOGLOBIN (BEAKER) (test ddzs=022) 8.3 GM/DL 13.7-17.5 HEMATOCRIT (BEAKER) (test yajx=712) 25.5 % 40.1-51.0 [id number] 07:53:00 Test Item Value Reference Range Comments PHOSPHORUS (BEAKER) (test ogwa=040) 3.0 mg/dL 2.3-4.7 Before arterial line is [id number] 07:53:00 Test Item Value Reference Range Comments MAGNESIUM (BEAKER) (test gwhz=694) 1.6 mg/dL 1.6-2.6 Before arterial line is discontinuedBASIC METABOLIC [id number] 07:53:00 Test Item Value Reference Range Comments SODIUM (BEAKER) (test 135 meq/L 136-145 rsjs=162) POTASSIUM (BEAKER) (test 3.9 meq/L 3.5-5.1 ngkx=497) CHLORIDE (BEAKER) (test 109 meq/L 98-107 pumf=142) CO2 (BEAKER) (test 20 meq/L 22-29 hqtu=990) BLOOD UREA NITROGEN 12 mg/dL 7-21 (BEAKER) (test cpvp=624) CREATININE (BEAKER) (test 0.88 mg/dL 0.57-1.25 omcu=687) GLUCOSE RANDOM (BEAKER) 94 mg/dL 70-105 (test omko=679) CALCIUM (BEAKER) (test 8.2 mg/dL 8.4-10.2 tmif=129) EGFR (BEAKER) (test 91 mL/min/1.73 sq m ESTIMATED GFR IS NOT atjt=8873) ACCURATE CREATININE CLEARANCE IN PREDICTING GLOMERULAR FILTRATION RATE. ESTIMATED GFR IS NOT APPLICABLE FOR DIALYSIS PATIENTS. Before arterial line is discontinuedHEMOGLOBIN AND [id number] 06:12:00 Test Item Value Reference Range Comments HEMOGLOBIN (BEAKER) (test tdue=254) 7.6 GM/DL 13.7-17.5 HEMATOCRIT (BEAKER) (test gczm=680) 23.7 % 40.1-51.0 [id number] 05:44:00 Test Item Value Reference Range Comments PHOSPHORUS (BEAKER) (test scfh=360) 3.0 mg/dL 2.3-4.7 Before arterial line is [id number] 05:44:00 Test Item Value Reference Range Comments MAGNESIUM (BEAKER) (test ggug=714) 1.6 mg/dL 1.6-2.6 Before arterial line is discontinuedBASIC METABOLIC [id number] 05:44:00 Test Item Value Reference Range Comments SODIUM (BEAKER) (test 138 meq/L 136-145 lyrh=786) POTASSIUM (BEAKER) (test 4.1 meq/L 3.5-5.1 erbf=886) CHLORIDE (BEAKER) (test 109 meq/L 98-107 zrdg=959) CO2 (BEAKER) (test 21 meq/L 22-29 gpgx=895) BLOOD UREA NITROGEN 19 mg/dL 7-21 (BEAKER) (test zbwq=545) CREATININE (BEAKER) (test 1.12 mg/dL 0.57-1.25 ldfl=559) GLUCOSE RANDOM (BEAKER) 107 mg/dL 70-105 (test lkfv=921) CALCIUM (BEAKER) (test 8.3 mg/dL 8.4-10.2 dytp=896) EGFR (BEAKER) (test 69 mL/min/1.73 sq m ESTIMATED GFR IS NOT ceph=3667) ACCURATE CREATININE CLEARANCE IN PREDICTING GLOMERULAR FILTRATION RATE. ESTIMATED GFR IS NOT APPLICABLE FOR DIALYSIS PATIENTS. Before arterial line is discontinuedHEMOGLOBIN AND [id number] 05:07:00 Test Item Value Reference Range Comments HEMOGLOBIN (BEAKER) (test cqwi=304) 7.6 GM/DL 13.7-17.5 HEMATOCRIT (BEAKER) (test tyft=922) 23.4 % 40.1-51.0 [id number] 06:36:00 Test Item Value Reference Range Comments MAGNESIUM (BEAKER) (test zram=986) 2.1 mg/dL 1.6-2.6 Before arterial line is discontinuedBASIC METABOLIC [id number] 06:36:00 Test Item Value Reference Range Comments SODIUM (BEAKER) (test 134 meq/L 136-145 qayw=461) POTASSIUM (BEAKER) (test 4.9 meq/L 3.5-5.1 gjrr=249) CHLORIDE (BEAKER) (test 107 meq/L 98-107 raix=557) CO2 (BEAKER) (test 21 meq/L 22-29 fhvs=179) BLOOD UREA NITROGEN 26 mg/dL 7-21 (BEAKER) (test jsgr=872) CREATININE (BEAKER) (test 1.36 mg/dL 0.57-1.25 jtud=962) GLUCOSE RANDOM (BEAKER) 113 mg/dL 70-105 (test kaml=648) CALCIUM (BEAKER) (test 8.2 mg/dL 8.4-10.2 fjyv=989) EGFR (BEAKER) (test 55 mL/min/1.73 sq m ESTIMATED GFR IS NOT srzk=1279) ACCURATE CREATININE CLEARANCE IN PREDICTING GLOMERULAR FILTRATION RATE. ESTIMATED GFR IS NOT APPLICABLE FOR DIALYSIS PATIENTS. Before arterial line is [id number] 06:36:00 Test Item Value Reference Range Comments PHOSPHORUS (BEAKER) (test ybvq=051) 3.3 mg/dL 2.3-4.7 HEMOGLOBIN AND [id number] 06:16:00 Test Item Value Reference Range Comments HEMOGLOBIN (BEAKER) (test wsxx=795) 7.9 GM/DL 13.7-17.5 HEMATOCRIT (BEAKER) (test khsb=682) 24.4 % 40.1-51.0 [id number] 06:27:00 Test Item Value Reference Range Comments PHOSPHORUS (BEAKER) (test elqa=926) 3.4 mg/dL 2.3-4.7 Before arterial line is [id number] 06:27:00 Test Item Value Reference Range Comments MAGNESIUM (BEAKER) (test dilw=452) 2.3 mg/dL 1.6-2.6 Before arterial line is discontinuedBASIC METABOLIC [id number] 06:27:00 Test Item Value Reference Range Comments SODIUM (BEAKER) (test 134 meq/L 136-145 jqjh=974) POTASSIUM (BEAKER) (test 5.6 meq/L 3.5-5.1 ksrc=868) CHLORIDE (BEAKER) (test 108 meq/L 98-107 kbak=169) CO2 (BEAKER) (test 19 meq/L 22-29 pnmn=385) BLOOD UREA NITROGEN 27 mg/dL 7-21 (BEAKER) (test gwgq=806) CREATININE (BEAKER) (test 1.62 mg/dL 0.57-1.25 rcpd=920) GLUCOSE RANDOM (BEAKER) 155 mg/dL 70-105 (test lihh=525) CALCIUM (BEAKER) (test 8.6 mg/dL 8.4-10.2 tddj=428) EGFR (BEAKER) (test 45 mL/min/1.73 sq m ESTIMATED GFR IS NOT xzgu=3999) ACCURATE CREATININE CLEARANCE IN PREDICTING GLOMERULAR FILTRATION RATE. ESTIMATED GFR IS NOT APPLICABLE FOR DIALYSIS PATIENTS. Before arterial line is discontinuedHEMOGLOBIN AND [id number] 06:12:00 Test Item Value Reference Range Comments HEMOGLOBIN (BEAKER) (test pcuo=093) 8.7 GM/DL 13.7-17.5 HEMATOCRIT (BEAKER) (test sdps=771) 26.1 % 40.1-51.0 BASIC METABOLIC [id number] 16:59:00 Test Item Value Reference Range Comments SODIUM (BEAKER) (test 137 meq/L 136-145 mrys=092) POTASSIUM (BEAKER) (test 5.0 meq/L 3.5-5.1 hvlv=279) CHLORIDE (BEAKER) (test 110 meq/L 98-107 njal=444) CO2 (BEAKER) (test 17 meq/L 22-29 fhjk=355) BLOOD UREA NITROGEN 18 mg/dL 7-21 (BEAKER) (test nerm=411) CREATININE (BEAKER) (test 1.22 mg/dL 0.57-1.25 tbcy=730) GLUCOSE RANDOM (BEAKER) 156 mg/dL 70-105 (test xiki=607) CALCIUM (BEAKER) (test 8.6 mg/dL 8.4-10.2 wfha=476) EGFR (BEAKER) (test 63 mL/min/1.73 sq m ESTIMATED GFR IS NOT iakx=8406) ACCURATE CREATININE CLEARANCE IN PREDICTING GLOMERULAR FILTRATION RATE. ESTIMATED GFR IS NOT APPLICABLE FOR DIALYSIS PATIENTS. [facility] [id number] 16:13:00 Test Item Value Reference Range Comments HEMOGLOBIN (BEAKER) (test ooog=176) 8.5 GM/DL 13.7-17.5 HEMATOCRIT (BEAKER) (test mohc=430) 25.5 % 40.1-51.0 SODIUM NA-STAT [id number] 13:04:00 Test Item Value Reference Range Comments SODIUM (BEAKER) (test qmqj=665) 137 meq/L 135-148 POTASSIUM-STAT [id number] 13:04:00 Test Item Value Reference Range Comments POTASSIUM (BEAKER) (test gtvn=142) 4.1 meq/L 3.6-5.5 CALCIUM, [id number] 13:04:00 Test Item Value Reference Range Comments CALCIUM IONIZED (BEAKER) (test zesq=767) 1.08 mmol/L 1.12-1.27 PH, BLOOD (BEAKER) (test ndmd=0471) 7.39 BLOOD GAS, [id number] 13:04:00 Test Item Value Reference Range Comments PH ARTERIAL (BEAKER) (test sbzb=589) 7.39 7.35-7.45 PCO2 ARTERIAL (BEAKER) (test wqte=850) 36 mmHg 35-45 PO2 ARTERIAL (BEAKER) (test jqjv=503) 241 mmHg 80-90 O2 SATURATION ARTERIAL (BEAKER) (test oemb=696) 99.5 % 96.0-97.0 HCO3 ARTERIAL (BEAKER) (test nxpb=301) 21 mmol/L 21-29 BASE EXCESS ARTERIAL (BEAKER) (test dsta=328) -3.2 mmol/L -2.0-3.0 PATIENT TEMPERATURE (BEAKER) (test knrg=0426) 37.0 C FIO2 (BEAKER) (test kvpy=1534) 100.0 % GLUCOSE-STAT [id number] 13:04:00 Test Item Value Reference Range Comments GLUCOSE RANDOM (BEAKER) (test etua=308) 121 mg/dL 70-110 HGB/HCT (H&H) - STAT [id number] 13:04:00 Test Item Value Reference Range Comments HEMOGLOBIN (BEAKER) (test ueeu=072) 7.7 g/dL 13.0-16.8 HEMATOCRIT (BEAKER) (test ucdx=668) 23.0 % 40.0-50.0 BASIC METABOLIC [id number] 08:07:00 Test Item Value Reference Range Comments SODIUM (BEAKER) (test 138 meq/L 136-145 pmsa=630) POTASSIUM (BEAKER) (test 3.9 meq/L 3.5-5.1 Specimen slightly joah=082) hemolyzed CHLORIDE (BEAKER) (test 102 meq/L 98-107 wolr=130) CO2 (BEAKER) (test 26 meq/L 22-29 mnwy=837) BLOOD UREA NITROGEN 17 mg/dL 7-21 (BEAKER) (test nazo=640) CREATININE (BEAKER) (test 1.00 mg/dL 0.57-1.25 Specimen slightly jqzq=467) hemolyzed GLUCOSE RANDOM (BEAKER) 100 mg/dL 70-105 (test dhoh=668) CALCIUM (BEAKER) (test 9.3 mg/dL 8.4-10.2 zmim=826) EGFR (BEAKER) (test 79 mL/min/1.73 sq m ESTIMATED GFR IS NOT qqsj=9285) ACCURATE CREATININE CLEARANCE IN PREDICTING GLOMERULAR FILTRATION RATE. ESTIMATED GFR IS NOT APPLICABLE FOR DIALYSIS PATIENTS. [id number] 07:18:00 Test Item Value Reference Range Comments HEMOGLOBIN SHABANA) (test bgoe=485) 11.3 GM/DL 13.7-17.5 Check DOSANG, CV ACCESS, [id number] 13:27:00Reason for Exam:->Malgnant neoplasm of urinary bladder, [...] the patient's medical record by the nurse. Import Export Coordinator: Daniel Ty MD First Mate: None. Approach: Right internal jugular vein Estimated [...] needle into the right atrium. A 4 Mexican micropuncture sheath was placed. A subcutaneous tunnel and pocket were created in the right anterior chest wall by blunt dissection. The pocket was flushed with antibiotic solution. A 6 [place] Bard single lumen power injectable port was [...] MDReport Verified Date/Time: 2017 13:27:04 Reading Location: [place] [address] Angio Body Reading Room [id number] 09:22:00 Test Item Value Reference Range Comments PROTIME (BEAKER) (test kwae=393) 14.0 seconds 11.7-14.7 INR (BEAKER) (test mqap=489) 1.1 <=5.9 PARTIAL THROMBOPLASTIN TIME (BEAKER) (test 28.1 seconds 22.5-36.0 fwbe=233) RECOMMENDED COUMADIN/WARFARIN INR THERAPY RANGESSTANDARD DOSE: 2.0 - 3.0 Includes: PROPHYLAXIS forvenous thrombosis, systemic embolization; TREATMENT for venous thrombosis and/or pulmonary embolus.HIGH RISK: Target INR is 2.5-3.5 for patients with mechanical heart valves.PLATELET [id number] 09:07:00 Test Item Value Reference Range Comments PLATELET COUNT (BEAKER) (test hpsb=819) 283 K/CU MM 150-450 PET/CT, WHOLE BODY [id number] 14:56:00Reason for Exam:->c67.9FINAL REPORT EXAMINATION: FDG-PET/CT, 08/03/2017 [...] feetAdditional imaging: NoneSerum blood glucose: 109CPT Code: 95344 FINDINGS:Head and Neck: Mild bernice activity is [...] consistent with infection or inflammation. Signed: [facility] Verified Date/Time: 08/03/2017 14:56:22 02 :56 PMPOCT-GLUCOSE [id number] 09:20:00 Test Item Value Reference Range Comments POC-GLUCOSE METER (BEAKER) 109 mg/dL 70-110 TESTED AT [facility] [address] [facility] (test jldg=3488) [facility] [address] TISSUE [id number] 14:18:00Surgical Pathology Report Case: [id number] Authorizing Provider: Danny Vaughn MD Collected: 07/25/2017 1140 Ordering Location: [facility] Received: 07/25/2017 1251 SERVICES Pathologist: Abdulaziz [...] GRANULOMATOUS INFLAMMATION Signing Pathologist Direct Phone Line: [phone] signed by Abdulaziz Daniels MD on 07/26/2017 at 2:18 PMApproximately 20% of the tumor shows some degree of squamous differentiation and 1% shows a micropapillary pattern.66246, 40013Nuirick cancerA. Bladder tumor left lateral wall. B. [...] entirely submitted in cassette B1. DB/ewPerformed.URINALYSIS W/ [id number] 09: 23:00 Test Item Value Reference Range Comments COLOR (BEAKER) (test zsve=284) Yellow CLARITY (BEAKER) (test crsn=329) Hazy SPECIFIC GRAVITY UA (BEAKER) (test 1.019 1.001-1.035 urbi=593) PH UA (BEAKER) (test oxee=112) 5.5 5.0-8.0 PROTEIN UA (BEAKER) (test fnjq=405) 100 mg/dL Negative GLUCOSE UA (BEAKER) (test gnwe=587) Negative Negative KETONES UA (BEAKER) (test jmyj=855) Negative Negative BILIRUBIN UA (BEAKER) (test scja=728) Negative Negative BLOOD UA (BEAKER) (test mdnz=570) Moderate Negative NITRITE UA (BEAKER) (test ojdg=294) Negative Negative LEUKOCYTE ESTERASE UA (BEAKER) (test Large Negative wwyp=324) UROBILINOGEN UA (BEAKER) (test tnmr=714) 2.0 mg/dL 0.2-1.0 RBC UA (BEAKER) (test vhbd=097) 27 /HPF WBC UA (BEAKER) (test prtj=379) 155 /HPF MUCUS (BEAKER) (test qfom=5169) Rare HYALINE CASTS (BEAKER) (test vxdj=576) 1 /LPF SOURCE(BEAKER) (test yzcz=7471) Urine, Clean Catch
[2018-11-29 01:05] LABS: Protime INR 1.02
[2018-11-29 01:07] LABS: Absolute Lymphocytes (CBC) 2.2 K/uL (0.7-4.9); Absolute Monocytes 0.9 K/uL (0.1-1.3); Absolute Neutrophil 4.5 K/uL (1.8-8.0); Basophils % 0.7 % (0-1.3); Eosinophils % 3.6 % (0-4.4); Hematocrit 39.3 % (39.6-49.0); Lymphocytes % 27.9 % (15.3-44.8); MPV 7.8 fL (7.6-11.3); RBC Red Blood Cell Count 4.36 M/uL (4.33-5.43)
[2018-11-29] MEDS ORDERED: PIPER/TAZO/NS 3.375gm 3.375 GM/100 ML BAG ONE (01:08)
[2018-11-29] MEDS ORDERED: ONDANSETRON 4 MG/2 ML VIAL ONE (01:08)
[2018-11-29] MEDS ORDERED: FENTANYL CITR 100 MCG/2 ML ONE (01:08)
[2018-11-29] MEDS ORDERED: NA CHLORIDE 0.9% 2,000 ML ONE (01:08)
[2018-11-29 01:17] LABS: ALT/SGPT 32 U/L (12-78); AST/SGOT 25 U/L (15-37); Albumin 3.7 g/dL (3.4-5.0); Alkaline Phosphatase 117 U/L (45-117); BUN Blood Urea Nitrogen 17 mg/dL (7-18); Bicarbonate 26 mmol/L (21-32); Bilirubin Direct 0.3 mg/dL (0-0.2); Bilirubin Total 0.9 mg/dL (0.2-1.0); Glucose Level 109 mg/dL (74-106); Magnesium 2.2 mg/dL (1.8-2.4); NT PRO-BNP 33 pg/mL (<125); Potassium 3.5 mmol/L (3.5-5.1); Protein, Total 7.5 g/dL (6.4-8.2); Sodium Level 141 mmol/L (136-145); Troponin (Emerg Dept Use Only) < 0.02 ng/mL (0.0-0.045)
--- NOTE | 2018-11-29 01:41 | ER ---
Nurse's Notes [facility] Name: Diaz Sadler Age: 53 yrs Sex: Male : 1965 Arrival Date: 11/29/2018 Time: 00:16 Bed Ultrasound Private MD: Kennedy Arias Diagnosis: Pain in left leg;Cellulitis and acute lymphangitis of other parts of limb;Urinary tract infection, site not specified Presentation: 11/29 00:24 Presenting complaint: Patient states: pain to upper left thigh for "a couple of weeks" ak1 pt stated he had a cramp in upper left thigh about 2 weeks [employer]. pt c/o increased pain to area, increased size of "knot" in upper left thigh from 2 weeks [employer]. pt stated he now also has pain to back of left calf. Transition of care: patient was not received from another setting of care. Onset of symptoms is unknown. Risk Assessment: Do you want to hurt yourself or someone else? Patient reports no desire to harm self or others. Care prior to arrival: None. 00:24 Method Of Arrival: Ambulatory ak1 00:24 Acuity: TERESA 3 ak1 00:51 Initial Sepsis Screen: Does the patient meet any 2 criteria? No. Patient's initial tl2 sepsis screen is negative. Does the patient have a suspected source of infection? No. Patient's initial sepsis screen is negative. Historical: - Allergies: 00:30 Codeine; itch; ak1 - Home Meds: 00:30 Synthroid Oral [Active]; unknown neuropathy med [Active]; ak1 - PMHx: 00:30 Bladder CA; Hypothyroidism; neuropathy; ak1 - PSHx: 00:30 chrissy bladder; prostate removed; ak1 - Immunization history:: Adult Immunizations unknown. - Social history:: Smoking status: unknown. - Ebola Screening: : No symptoms or risks identified at this time. - Family history:: not pertinent. Screenin:50 Abuse screen: Denies threats or abuse. Nutritional screening: No deficits noted. tl2 Tuberculosis screening: No symptoms or risk factors identified. Fall Risk None identified. Assessment: 00:30 General: Appears in no apparent distress. uncomfortable, Behavior is calm, cooperative, tl2 appropriate for age. Pain: Complains of pain in medial aspect of left thigh Pain currently is 8 out of 10 on a pain scale. Quality of pain is described as aching, sharp. Neuro: Level of Consciousness is awake, alert, obeys commands, Oriented to person, place, time, situation. Cardiovascular: Denies chest pain. Respiratory: Airway is patent Respiratory effort is even, unlabored, Respiratory pattern is regular, symmetrical. GI: No signs and/or symptoms were reported involving the gastrointestinal system. : No signs and/or symptoms were reported regarding the genitourinary system. Derm: Skin is pink, warm \\T\\ dry. Musculoskeletal: Circulation, motion, and sensation intact. Swelling present in left leg. 01:29 Reassessment: Patient appears in no apparent distress at this time. Patient and/or tl2 family updated on plan of care and expected duration. Pain level reassessed. Patient is alert, oriented x 3, equal unlabored respirations, skin warm/dry/pink. 02:21 Reassessment: Patient appears in no apparent distress at this time. pt reports tl2 increased pain after ultrasound. Second dose of pain medication administered, will reassess in 30 minutes. 04:00 Reassessment: Patient appears in no apparent distress at this time. Patient and/or tl2 family updated on plan of care and expected duration. Pain level reassessed. Patient is alert, oriented x 3, equal unlabored respirations, skin warm/dry/pink. pt denies needing pain medication at this time. 05:21 Reassessment: Patient appears in no apparent distress at this time. Patient and/or tl2 family updated on plan of care and expected duration. Pain level reassessed. Patient is alert, oriented x 3, equal unlabored respirations, skin warm/dry/pink. Vital Signs: 00:24 BP 134 / 79; Pulse 67; Resp 18; Temp 98.8; Pulse Ox 100% on R/A; Weight 89.81 kg (R); ak1 Height 5 ft. 11 in. (180.34 cm) (R); Pain 5/10; 01:29 BP 126 / 71; Pulse 59; Resp 18; Pulse Ox 99% on R/A; tl2 02:21 BP 110 / 58; Pulse 55; Resp 18; Pulse Ox 100% on R/A; tl2 03:24 BP 121 / 71; Pulse 59; Resp 18; Pulse Ox 98% on R/A; tl2 05:21 BP 114 / 78; Pulse 60; Resp 18; Pulse Ox 99% on R/A; tl2 00:24 Body Mass Index 27.62 (89.81 kg, 180.34 cm) ak1 ED Course: 00:16 Patient arrived in ED. am2 00:16 Jhonny Da Silva DO is Private Physician. am2 00:16 Kennedy Arias MD is Private Physician. am2 00:24 Ricardo aDvis MD is Attending Physician. srikanth 00:24 Arm band placed on Patient placed in an exam room, on a stretcher, on pulse oximetry, ak1 Patient notified of wait time. 00:26 Triage completed. ak1 00:34 Viktoriya Schaefer RN is Primary Nurse. tl2 00:50 Patient has correct armband on for positive identification. Bed in low position. Call tl2 light in reach. Side rails up X 1. Adult w/ patient. 00:50 Inserted saline lock: 22 gauge in left antecubital area, using aseptic technique. Blood tl2 collected. 01:04 X-ray completed. Portable x-ray completed in exam room. Patient tolerated procedure kw well. 01:05 XRAY Chest (1 view) In Process Unspecified. EDMS 01:40 Aurora Herzog MD is Hospitalizing Provider. srikanth 05:21 No provider procedures requiring assistance completed. Patient admitted, IV remains in tl2 place. Administered Medications: 01:10 Drug: NS 0.9% 1000 ml Route: IV; Rate: 1 bolus; Site: left antecubital; tl2 02:15 Follow up: IV Status: Completed infusion; IV Intake: 1000ml tl2 01:10 Drug: Zosyn 3.375 grams Route: IVPB; Infused Over: 60 mins; Site: left antecubital; tl2 02:15 Follow up: IV Status: Completed infusion; IV Intake: 100ml tl2 01:10 Drug: fentaNYL (PF) 25 mcg Route: IVP; Site: left antecubital; tl2 02:00 Follow up: Response: No adverse reaction; Pain is unchanged, physician notified tl2 01:11 Drug: Zofran 4 mg Route: IVP; Site: left antecubital; tl2 02:00 Follow up: Response: No adverse reaction tl2 02:15 Drug: fentaNYL (PF) 25 mcg Route: IVP; Site: left antecubital; tl2 03:15 Follow up: Response: No adverse reaction; Pain is decreased tl2 02:16 Drug: NS 0.9% 1000 ml Route: IV; Rate: 125 ml/hr; Site: left antecubital; tl2 05:26 Follow up: IV Status: Infusion continued upon admission tl2 04:20 Drug: vancoMYCIN 1 grams Route: IVPB; Infused Over: 2 hrs; Site: left antecubital; tl2 05:26 Follow up: IV Status: Infusion continued upon admission tl2 Intake: 02:15 IV: 1000ml; Total: 1000ml. tl2 02:15 IV: 100ml; Total: 1100ml. tl2 Outcome: 01:41 Decision to Hospitalize by Provider. srikanth 05:21 Admitted to Med/surg accompanied by nurse, family with patient, via stretcher, room tl2 215, with chart, Report called to JESUS Joy 05:21 Condition: stable 05:21 Discharge instructions given to patient, family, Instructed on the need for admit. 05:27 Patient left the ED. tl2 Signatures: Dispatcher [employer] EDRicardo Noel MD MD cha Whitley, Kimberlee kw Krenek, Amber RN RN ak1 Viktoriya Schaefer RN RN tl2 Lashay Spann am2 Corrections: (The following items were deleted from the chart) 01:40 01:29 BP 134 / 79; Pulse 59bpm; Resp 18bpm; Pulse Ox 99% RA; tl2 tl2 02:23 02:21 Pulse 55bpm; Resp 18bpm; Pulse Ox 100% RA; tl2 tl2
--- NOTE | 2018-11-29 01:41 | EDPHYS ---
Physician Documentation [facility] Name: Diaz Sadler Age: 53 yrs Sex: Male : 1965 Arrival Date: 11/29/2018 Time: 00:16 Bed Ultrasound Private MD: Kennedy Arias ED Physician Ricardo Davis HPI: 11/29 00:33 This 53 yrs old Male presents to ER via Ambulatory with complaints of Thigh srikanth pain/swelling, possible blood clot. 00:33 The patient presents with an abscess, decreased range of motion, pain, swelling, srikanth tenderness. The complaints affect the medial aspect of left thigh. Context: The problem was sustained at home, resulted from an unknown cause, the patient can fully bear weight. Onset: The symptoms/episode began/occurred 3 week(s) ago. Modifying factors: The symptoms are alleviated by elevating leg, the symptoms are aggravated by movement, bending knee. Associated signs and symptoms: The patient has no apparent associated signs or symptoms. Treatment prior to arrival includes: no previous treatment. Severity of symptoms: At their worst the symptoms were mild, moderate, in the emergency department the symptoms are unchanged. The patient has not experienced similar symptoms in the past. Historical: - Allergies: 00:30 Codeine; itch; ak1 - Home Meds: 00:30 Synthroid Oral [Active]; unknown neuropathy med [Active]; ak1 - PMHx: 00:30 Bladder CA; Hypothyroidism; neuropathy; ak1 - PSHx: 00:30 chrissy bladder; prostate removed; ak1 - Immunization history:: Adult Immunizations unknown. - Social history:: Smoking status: unknown. - Ebola Screening: : No symptoms or risks identified at this time. - Family history:: not pertinent. ROS: 00:33 Constitutional: Negative for fever, chills, and weight loss, Eyes: Negative for injury, srikanth pain, redness, and discharge, ENT: Negative for injury, pain, and discharge, Neck: Negative for injury, pain, and swelling, Cardiovascular: Negative for chest pain, palpitations, and edema, Respiratory: Negative for shortness of breath, cough, wheezing, and pleuritic chest pain, Abdomen/GI: Negative for abdominal pain, nausea, vomiting, diarrhea, and constipation, Back: Negative for injury and pain, : Negative for injury, bleeding, discharge, and swelling, Skin: Negative for injury, rash, and discoloration, Neuro: Negative for headache, weakness, numbness, tingling, and seizure, Psych: Negative for depression, anxiety, suicide ideation, homicidal ideation, and hallucinations, Allergy/Immunology: Negative for hives, rash, and allergies, Endocrine: Negative for neck swelling, polydipsia, polyuria, polyphagia, and marked weight changes, Hematologic/Lymphatic: Negative for swollen nodes, abnormal bleeding, and unusual bruising. 00:33 MS/extremity: Positive for injury or acute deformity, decreased range of motion, erythema, pain, of the . Exam: 00:33 Constitutional: This is a well developed, well nourished patient who is awake, alert, srikanth and in no acute distress. Head/Face: Normocephalic, atraumatic. Eyes: Pupils equal round and reactive to light, extra-ocular motions intact. Lids and lashes normal. Conjunctiva and sclera are non-icteric and not injected. Cornea within normal limits. Periorbital areas with no swelling, redness, or edema. ENT: Nares patent. No nasal discharge, no septal abnormalities noted. Tympanic membranes are normal and external auditory canals are clear. Oropharynx with no redness, swelling, or masses, exudates, or evidence of obstruction, uvula midline. Mucous membranes moist. Neck: Trachea midline, no thyromegaly or masses palpated, and no cervical lymphadenopathy. Supple, full range of motion without nuchal rigidity, or vertebral point tenderness. No Meningismus. Chest/axilla: Normal chest wall appearance and motion. Nontender with no deformity. No lesions are appreciated. Cardiovascular: Regular rate and rhythm with a normal S1 and S2. No gallops, murmurs, or rubs. Normal PMI, no JVD. No pulse deficits. Respiratory: Lungs have equal breath sounds bilaterally, clear to auscultation and percussion. No rales, rhonchi or wheezes noted. No increased work of breathing, no retractions or nasal flaring. Abdomen/GI: Soft, non-tender, with normal bowel sounds. No distension or tympany. No guarding or rebound. No evidence of tenderness throughout. Back: No spinal tenderness. No costovertebral tenderness. Full range of motion. Skin: Warm, dry with normal turgor. Normal color with no rashes, no lesions, and no evidence of cellulitis. Neuro: Awake and alert, GCS 15, oriented to person, place, time, and situation. Cranial nerves II-XII grossly intact. Motor strength 5/5 in all extremities. Sensory grossly intact. Cerebellar exam normal. Normal gait. Psych: Awake, alert, with orientation to person, place and time. Behavior, mood, and affect are within normal limits. 00:33 Musculoskeletal/extremity: Circulation is intact in all extremities. Sensation intact. Compartment Syndrome exam of affected extremity: is normal. DVT Exam: negative Homans' sign noted on exam, no appreciated bluish discoloration, pain, swelling, tenderness, erythema, increased warmth. Vital Signs: 00:24 BP 134 / 79; Pulse 67; Resp 18; Temp 98.8; Pulse Ox 100% on R/A; Weight 89.81 kg (R); ak1 Height 5 ft. 11 in. (180.34 cm) (R); Pain 5/10; 01:29 BP 126 / 71; Pulse 59; Resp 18; Pulse Ox 99% on R/A; tl2 02:21 BP 110 / 58; Pulse 55; Resp 18; Pulse Ox 100% on R/A; tl2 03:24 BP 121 / 71; Pulse 59; Resp 18; Pulse Ox 98% on R/A; tl2 05:21 BP 114 / 78; Pulse 60; Resp 18; Pulse Ox 99% on R/A; tl2 00:24 Body Mass Index 27.62 (89.81 kg, 180.34 cm) ak1 MDM: 00:24 Patient medically screened. [facility] 01:37 Data reviewed: vital signs, nurses notes, lab test result(s), EKG, radiologic studies, srikanth plain films. 11/29 00:32 Order name: Basic Metabolic Panel; Complete Time: :35 [facility] 11/29 00:32 Order name: CBC with Diff; Complete Time: : [facility] 11/29 00:32 Order name: LFT's; Complete Time: : [facility] 11/29 00:32 Order name: Magnesium; Complete Time: : [facility] 11/29 00:32 Order name: NT PRO-BNP; Complete Time: : [facility] 11/29 00:32 Order name: PT-INR; Complete Time: : [facility] 11/29 00:32 Order name: Troponin (emerg Dept Use Only); Complete Time: 01:35 [facility] 11/29 00:32 Order name: XRAY Chest (1 view) [facility] 11/29 00:32 Order name: Blood Culture Adult (2) [facility] 11/29 00:32 Order name: US Extremity Venous W Compression Satish [facility] 11/29 00:32 Order name: Urine Culture [facility] 11/29 01:45 Order name: Urine Dipstick--Ancillary (enter results); Complete Time: 03:38 [facility] 11/29 00:32 Order name: EKG; Complete Time: 00:35 [facility] 11/29 00:32 Order name: Cardiac monitoring; Complete Time: 00:49 [facility] 11/29 00:32 Order name: EKG - Nurse/Tech; Complete Time: 01:10 [facility] 11/29 00:32 Order name: IV Saline Lock; Complete Time: 00:49 [facility] 11/29 00:32 Order name: Labs collected and sent; Complete Time: 00:49 [facility] 11/29 00:32 Order name: O2 Per Protocol; Complete Time: 00:49 [facility] 11/29 00:32 Order name: O2 Sat Monitoring; Complete Time: 00:49 [facility] 11/29 00:32 Order name: Urine Dipstick-Ancillary (obtain specimen); Complete Time: 01:39 [facility] 11/29 02:13 Order name: CONS Pharmacy Consult [facility] 11/29 02:13 Order name: CONS Pharmacy Consult [facility] 11/29 02:13 Order name: Regular EDMS Administered Medications: 01:10 Drug: NS 0.9% 1000 ml Route: IV; Rate: 1 bolus; Site: left antecubital; tl2 02:15 Follow up: IV Status: Completed infusion; IV Intake: 1000ml tl2 01:10 Drug: Zosyn 3.375 grams Route: IVPB; Infused Over: 60 mins; Site: left antecubital; tl2 02:15 Follow up: IV Status: Completed infusion; IV Intake: 100ml tl2 01:10 Drug: fentaNYL (PF) 25 mcg Route: IVP; Site: left antecubital; tl2 02:00 Follow up: Response: No adverse reaction; Pain is unchanged, physician notified tl2 01:11 Drug: Zofran 4 mg Route: IVP; Site: left antecubital; tl2 02:00 Follow up: Response: No adverse reaction tl2 02:15 Drug: fentaNYL (PF) 25 mcg Route: IVP; Site: left antecubital; tl2 03:15 Follow up: Response: No adverse reaction; Pain is decreased tl2 02:16 Drug: NS 0.9% 1000 ml Route: IV; Rate: 125 ml/hr; Site: left antecubital; tl2 05:26 Follow up: IV Status: Infusion continued upon admission tl2 04:20 Drug: vancoMYCIN 1 grams Route: IVPB; Infused Over: 2 hrs; Site: left antecubital; tl2 05:26 Follow up: IV Status: Infusion continued upon admission tl2 Disposition: 11/29/18 01:41 Hospitalization ordered by Aurora Herzog for Inpatient Admission. Preliminary diagnosis are Pain in left leg, Cellulitis and acute lymphangitis of other parts of limb, Urinary tract infection, site not specified. - Bed requested for Telemetry/MedSurg (Inpatient). - Status is Inpatient Admission. tl2 - Condition is Fair. - Problem is new. - Symptoms have improved. UTI on Admission? Yes Signatures: Dispatcher [employer] EDRicardo Noel MD MD cha Krenek, Amber RN RN ak1 Ann Marie Montoya RN RN Viktoriya Schaefer RN RN tl2 Corrections: (The following items were deleted from the chart) 03:16 01:41 Hospitalization Ordered by Aurora Herzog MD for Inpatient Admission. Preliminary cg diagnosis is Pain in left leg; Cellulitis and acute lymphangitis of other parts of limb; Urinary tract infection, site not specified. Bed requested for Telemetry/MedSurg (Inpatient). Status is Inpatient Admission. Condition is Fair. Problem is new. Symptoms have improved. UTI on Admission? Yes. srikanth 05:27 03:16 11/29/2018 01:41 Hospitalization Ordered by Aurora Herzog MD for Inpatient tl2 Admission. Preliminary diagnosis is Pain in left leg; Cellulitis and acute lymphangitis of other parts of limb; Urinary tract infection, site not specified. Bed requested for Telemetry/MedSurg (Inpatient). Status is Inpatient Admission. Condition is Fair. Problem is new. Symptoms have improved. UTI on Admission? Yes. cg
[2018-11-29] MEDS ORDERED: ACETAMINOPHEN 500 MG TAB PO PRN (02:09)
[2018-11-29] MEDS ORDERED: MORPHINE 4 MG/ML SYR IV PRN (02:09)
[2018-11-29] MEDS ORDERED: ONDANSETRON 4 MG/2 ML VIAL IV PRN (02:09)
[2018-11-29] MEDS ORDERED: VANCOMYCIN/NS 1 gm 1 GM/250 ML BAG IVPB SCH (02:15)
[2018-11-29 03:20] LABS: Urine Blood NEGATIVE (NEG); Urine Glucose NEGATIVE (NEG); Urine Protein 1+ (NEG); Urine Specific Gravity 1.015 (1.005-1.030); Urine pH 7.5 (5.0-7.0)
[2018-11-29] MEDS ORDERED: VANCOMYCIN 1 GM/VIAL ONE (03:56)
[2018-11-29] MEDS ORDERED: NA CHLORIDE 0.9% 250 ML ONE (03:56)
[2018-11-29] MEDS ORDERED: VANCOMYCIN 1.5 GM in NA CHLORIDE 0.9% 500 ML IVPB SCH ×2 (04:00→16:00)
[2018-11-29] MEDS ORDERED: VANCOMYCIN 500 MG in NA CHLORIDE 0.9% 100 ML IVPB ONE (04:15)
[2018-11-29] MEDS ORDERED: Levofloxacin500mg IV 500 MG/100 ML BAG IV SCH (05:00)
--- NOTE | 2018-11-29 05:40 | P.HP ---
Certification for Inpatient Patient admitted to: Inpatient With expected LOS: >2 Midnights Patient will require the following post-hospital care: None Practitioner: I am a practitioner with admitting privileges, knowledge of patient current condition, hospital course, and medical plan of care. Services: Services provided to patient in accordance with Admission requirements found in Title 42 Section 412.3 of the Code of Federal Regulations Patient History Date of Service: 11/29/18 Reason for admission: Left lobe extremity cellulitis History of Present Illness: Pt is a 53yo who was admitted to the hospital with cellulitis/erythema of the left lower extremity. Patient's erythema extended from her knee up to her groin region. Patient also has inguinal lymphadenopathy. Patient has a history of bladder cancer-stage IV. Patient also had complete resection of the bladder as well as a prostate resection. Patient has been in remission for quite some time and repeat CT scan a month ago a revealed no evidence of new lesion. He had been doing well up until a few days ago when the redness on his left leg was noted. Initially, it was felt to be a DVT; however, patient's Doppler did not reveal a DVT. Patient will be admitted to the hospital for further treatment. Allergies Penicillins Allergy (Intermediate, Verified 11/30/11 20:52) Rash hydrocodone Allergy (Verified 11/29/18 05:15) Itching Home medications list reviewed: Yes - Past Medical/Surgical History Has patient received pneumonia vaccine in the past: No -: History of stage IV bladder cancer -: Bladder and prostate resection with bladder pouch - Family History Father Family History: Reviewed- Non-Contributory - Social History Smoking Status: Former smoker Alcohol use: No CD- Drugs: No Review of Systems 10-point ROS is otherwise unremarkable Physical Examination - Vital Signs Temperature: 100.6 F Blood Pressure: 110/70 Pulse: 99 Respirations: 18 Pulse Ox (%): 99 - Physical Exam General: Alert, In no apparent distress, Oriented x3 HEENT: Atraumatic, Normocephalic, PERRLA, Mucous membr. moist/pink Neck: Supple, 2+ carotid pulse no bruit, JVD not distended, No Thyromegaly Respiratory: Clear to auscultation bilaterally, Normal air movement Cardiovascular: Regular rate/rhythm, Normal S1 S2 Gastrointestinal: Normal bowel sounds, Soft and benign, No tenderness, No rebound, No guarding Musculoskeletal: No clubbing, No swelling, No contractures Integumentary: Tenderness/swelling (left lower ext), Erythema (LLE), Warmth (LLE ), Other (Abdomen-patient has some open lesions. No obvious drainage noted) Neurological: Normal gait, Normal speech, Normal strength at 5/5 x4 extr, Normal tone, Sensation intact, Cranial nerves 3-12 intact - Studies Laboratory Data (last 24 hrs) 11/29/18 00:40: PT 12.0, INR 1.02 11/29/18 00:40: WBC 8.0, Hgb 13.3 L, Hct 39.3 L, Plt Count 192 11/29/18 00:40: Sodium 141, Potassium 3.5, BUN 17, Creatinine 1.21, Glucose 109 H, Magnesium 2.2, Total Bilirubin 0.9, AST 25, ALT 32, Alkaline Phosphatase 117 Assessment & Plan - Problems (Diagnosis) (1) Left leg cellulitis Current Visit: Yes Status: Acute (2) Stage IV bladder cancer Current Visit: Yes Status: Acute (3) Acute lymphangitis of groin Current Visit: Yes Status: Acute - Plan 1. Continue with IV antibiotic 2. Continue with local wound care 3. Gentle IV hydration 4. Monitor CBC 5. Strict blood sugar monitoring 6. Pain control 7. GI and DVT prophylaxis Discharge Plan: Home Plan to discharge in: Greater than 2 days - Advance Directives Does patient have a Living Will: No Does patient have a Durable POA for Healthcare: No - Code Status/Comfort Care Code Status Assessed: Yes Code Status: Full Code Critical Care: No Time Spent Managing PTS Care (In Minutes): 45
[2018-11-29 05:46] VITALS: BMI 27.6
[2018-11-29] MEDS ORDERED: VANCOMYCIN 500 MG/VIAL ONE (06:27)
[2018-11-29] MEDS ORDERED: NA CHLORIDE 0.9% 100 ML ONE (06:30)
--- NOTE | 2018-11-29 07:01 | RAD REPORT ---
EXAM DESCRIPTION: US - Extrem Venous W Compress Satish - 11/29/2018 2:28 am CLINICAL HISTORY: Bilateral leg pain COMPARISON: None. TECHNIQUE: Real-time sonographic evaluation of the bilateral lower extremity common femoral, superfi cial femoral, popliteal and posterior tibial veins was performed. FINDINGS: Normal compressibility, flow augmentation, phasic flow and spontaneous flow are identified in the left and right lower extremity common femoral, superficial femoral, popliteal and posterior t ibial veins. No intraluminal filling defects seen. IMPRESSION: No DVT in either lower extremity.
--- NOTE | 2018-11-29 08:07 | RAD REPORT ---
EXAM DESCRIPTION: RAD - Chest Single View - 11/29/2018 1:05 am CLINICAL HISTORY: Cough COMPARISON: January 2018 TECHNIQUE: AP portable chest image was obtained 0054 hours . FINDINGS: No focal lung parenchymal process identified. Lung markings are similar to comparison. Rig ht-sided Port-A-Cath remains in place. Heart and vasculature are normal. No measurable pleural effusi on and no pneumothorax. No acute bony abnormality seen. No acute aortic findings suspected. IMPRESSION: No acute cardiopulmonary process. No significant change from comparison.
[2018-11-29] MEDS ORDERED: CLINDAMYCIN INJ 600 MG in NA CHLORIDE 0.9% 50 ML IV SCH (09:00)
--- NOTE | 2018-11-29 10:28 | EKG ---
Test Date: 2018-11-29 Test Time: 00:57:12 Plant And Maintenance Technician: SERA MEASUREMENT RESULTS: Intervals: Rate: 58 PA: 166 QRSD: 112 QT: 398 QTc: 390 Mcgregor: P: 41 PA: 166 QRS: -15 T: 30 INTERPRETIVE STATEMENTS: Sinus bradycardia Possible Left atrial enlargement Incomplete right bundle branch block Borderline ECG Compared to ECG 01/17/2018 07:50:17 Incomplete right bundle-branch block now present Sinus rhythm no longer present Electronically Signed On 11-29-18 10:28:00 CDT by Wilberto Gibson
[2018-11-29 10:55] VITALS: BP 123/72; TEMP 97.8
--- NOTE | 2018-11-29 12:35 | P.SSS ---
Patient History Date of Service: 11/29/18 Reason for admission: Left lobe extremity cellulitis History of Present Illness: See HPI Allergies Penicillins Allergy (Intermediate, Verified 11/30/11 20:52) Rash hydrocodone Allergy (Verified 11/29/18 05:15) Itching Home Medications: Doxycycline Hyclate 100 mg PO BID #20 tablet 11/29/18 Gabapentin 1 cap PO BEDTIME 11/29/18 Levothyroxine [Synthroid*] 1 tab PO DAILY 11/29/18 - Past Medical/Surgical History Has patient received pneumonia vaccine in the past: No Diabetic: No -: History of stage IV bladder cancer -: Hypothyroidism -: Neuropathy -: Bladder and prostate resection with bladder pouch -: Eligio bladder - Family History Father -: Cancer - Social History Smoking Status: Former smoker Alcohol use: No CD- Drugs: No Caffeine use: Yes Place of Residence: Home Review of Systems 10-point ROS is otherwise unremarkable Physical Examination - Vital Signs Temperature: 97.8 F Blood Pressure: 123/72 Pulse: 68 Respirations: 18 Pulse Ox (%): 98 - Physical Exam General: Alert, In no apparent distress HEENT: Atraumatic, PERRLA, Mucous membr. moist/pink, EOMI, Sclerae nonicteric Neck: Supple, 2+ carotid pulse no bruit, No LAD, Without JVD or thyroid abnormality Respiratory: Clear to auscultation bilaterally, Normal air movement Cardiovascular: Regular rate/rhythm, Normal S1 S2 Gastrointestinal: Normal bowel sounds, No tenderness Musculoskeletal: Erythema (Improvement in the left thigh area.) Integumentary: No rashes Neurological: Normal gait, Normal speech, Normal strength at 5/5 x4 extr, Normal tone, Normal affect Lymphatics: No axilla or inguinal lymphadenopathy - Studies Laboratory Data (last 24 hrs) 11/29/18 00:40: PT 12.0, INR 1.02 11/29/18 00:40: WBC 8.0, Hgb 13.3 L, Hct 39.3 L, Plt Count 192 11/29/18 00:40: Sodium 141, Potassium 3.5, BUN 17, Creatinine 1.21, Glucose 109 H, Magnesium 2.2, Total Bilirubin 0.9, AST 25, ALT 32, Alkaline Phosphatase 117 - Diagnosis (Problem(s)) (1) Acute lymphangitis of groin Current Visit: Yes Status: Acute (2) Left leg cellulitis Current Visit: Yes Status: Acute (3) Stage IV bladder cancer Current Visit: Yes Status: Acute Treatment Summary: Overall during the hospital stay patient remained stable Patient discharged home today after improvement with IV antibiotics. Repeated soft tissue ultrasound of the lower extremity within normal limits as well. Patient given prescription for doxycycline 100 mg b.i.d. - Disposition Disposition: ROUTINE DISCHARGE Condition: GOOD Patient Discharge Instructions: Please followup with primary care provider about 1-2 days post discharge. New medication. Doxycycline 100 mg b.i.d. Diet: Regular Activity: Ad sumit
--- NOTE | 2018-11-29 12:59 | RAD REPORT ---
EXAM DESCRIPTION: US - Extremity Nonvascular Complete - 11/29/2018 12:50 pm CLINICAL HISTORY: Palpable mass or abnormality left thigh COMPARISON: None. FINDINGS: In the superior medial left thigh near the area palpable abnormality the left greater saph enous vein is identified in shows thrombus filling the lumen. No mass or abnormal fluid collection in the soft tissues surrounding the left greater saphenous vein. IMPRESSION: Superficial venous thrombosis involving the left greater saphenous vein in the superior medial left thigh. No mass or abnormal fluid collection in the surrounding soft tissues.
[2018-11-29 13:12] VITALS: O2SAT 99
[2018-11-29] MEDS ORDERED: ENOXAPARIN 100 MG/ML SYR SQ SCH (18:00)
[2018-11-29] MEDS ORDERED: DOXYCYCLINE 100 MG CAP PO SCH (21:00)
== END 2018-11-29 15:29 | disposition home or self-care (01) ==
LOC: ER 00:14 → ERHOLD 02:21 → 2ND 04:40
PROVIDERS: ADMIT Hospitalist; ATTEND Family Medicine
DX: L03.116 Cellulitis of left lower limb (principal); L03.324 Acute lymphangitis of groin; I82.812 Embolism and thrombosis of superficial veins of left lower extremity; I45.10 Unspecified right bundle-branch block; R00.1 Bradycardia, unspecified; E03.9 Hypothyroidism, unspecified; G62.9 Polyneuropathy, unspecified; Z79.899 Other long term (current) drug therapy; Z85.51 Personal history of malignant neoplasm of bladder; Z87.891 Personal history of nicotine dependence; Z96.0 Presence of urogenital implants
CPT/HCPCS: 36415; 71045; 76881; 80048; 80076; 81003; 83735; 83880; 84484; 85025; 85610; 87040; 87077; 87086; 87088; 87186; 93005; 93970; 96361; 96365; 96367; 96375; 99285; G0378; J1650; J2405; J2543; J3010; J7030

== ENCOUNTER 2018-12-18 13:57 | Inpatient (IN) | payer BC ==
--- OUTSIDE RECORDS SUMMARY | 2018-12-18 14:01 | XMS REPORT ---
:1965 [facility] Address [address] [place] [address] Care Team Providers Name Role Phone BERTRAND [...] (JACQUELINEKEILY) (test 1.3 mg/dL 0.6-1.3 TESTED AT [facility] 7200 ajym=9015) [facility] [address] POC-EGFR (MARCIE) (test 58 mL/min/1.73M2 fnhx=2196) TISSUE [id number] 16:33:00Surgical Pathology Report Case: [id number] Authorizing Provider: Danny Vaughn MD Collected: 01/02/2018 0944 Ordering Location: [facility] PERIOPERATIVE Received: 01/02/2018 0950 SERVICES [...] PATHOLOGIC DIAGNOSIS Signing Pathologist Direct Phone Line: [phone] Preliminary result electronically signed by Abdulaziz Daniels [...] (pT): pT0 Regional Lymph Nodes (pN): pN3 08967, 96305 X 9, 46387 X 4, 98283 X 11Bladder cancerA. Pelvic lymph nodes, para- [...] Black-right bladder and prostate, blue-left bladder and prostate.Manager Strategy & Account sections are submitted as follows: R1, left ureter resection margin; R2, right ureter resection margin; R3, left ureteral orifice; R4, right ureteral orifice; R5, left ureter financial representative sections; R6,right ureter financial representative sections; R7 -R23, left lateral bladder wall scar, end submitted; R24, R25, right lateral wall financial representative sections; R26, R27, financial representative sections of posterior wall; R28, R29, financial representative sections of bladder dome; R30, financial representative section of trigone; R31, financial representative section of anterior wall; R32, prostate apex; R33-37, prostate from apex to base; R38, seminal vesicles. DD/ewS. Labeled "small bowel resection" consists of a segment of small bowel measuring 3cm in length x 1.5 cm in diameter. The specimen is grossly unremarkable. Section code: S1, resectionmargin en face; S2, random section of small bowel. CG /plFROZEN SECTION DIAGNOSIS:[id number]: DISTAL PARA-AORTIC LYMPH NODE, EXCISION: - TUMOR PRESENT IN LYMPH NODE - REPORTED BY DR. ARTHUR TO DR. VAUGHN AT 10:20 [id number]: LYMPH NODE, PROXIMAL LIMIT OF DISSECTION PARAORTA, [...] DR. SANDHYA VAUGHN AT 11:45 AM Performed.URINE [id number] 12:19:00 Test Item Value Reference Range Comments CULTURE ([employer]) (test ENTEROCOCCUS SPECIES >100,000 col/mL tmre=3420) Enterococcus species Ampicillin (test code=26) Linezolid (test code=40) Nitrofurantoin (test code=23) Tetracycline (test code=2) Vancomycin (test code=13) [id number] 08:23:00 Test Item Value Reference Range Comments PHOSPHORUS (BEAKER) (test xsxi=605) 3.0 mg/dL 2.3-4.7 Before arterial line is [id number] 08:23:00 Test Item Value Reference Range Comments MAGNESIUM (BEAKER) (test wznp=800) 1.6 mg/dL 1.6-2.6 Before arterial line is discontinuedBASIC METABOLIC [id number] 08:23:00 Test Item Value Reference Range Comments SODIUM (BEAKER) (test 139 meq/L 136-145 jsua=213) POTASSIUM (BEAKER) (test 3.5 meq/L 3.5-5.1 rbnr=559) CHLORIDE (BEAKER) (test 106 meq/L 98-107 vyoy=550) CO2 (BEAKER) (test 26 meq/L 22-29 wsux=142) BLOOD UREA NITROGEN 9 mg/dL 7-21 (BEAKER) (test ggbb=130) CREATININE (BEAKER) (test 0.85 mg/dL 0.57-1.25 hplq=593) GLUCOSE RANDOM (BEAKER) 97 mg/dL 70-105 (test wwuh=574) CALCIUM (BEAKER) (test 8.4 mg/dL 8.4-10.2 qzgp=841) EGFR (BEAKER) (test 95 mL/min/1.73 sq m ESTIMATED GFR IS NOT trvr=9773) ACCURATE CREATININE CLEARANCE IN PREDICTING GLOMERULAR FILTRATION RATE. ESTIMATED GFR IS NOT APPLICABLE FOR DIALYSIS PATIENTS. Before arterial line is discontinuedHEMOGLOBIN AND [id number] 07:53:00 Test Item Value Reference Range Comments HEMOGLOBIN (BEAKER) (test enno=957) 8.3 GM/DL 13.7-17.5 HEMATOCRIT (BEAKER) (test vovx=173) 25.5 % 40.1-51.0 [id number] 07:53:00 Test Item Value Reference Range Comments PHOSPHORUS (BEAKER) (test njyd=833) 3.0 mg/dL 2.3-4.7 Before arterial line is [id number] 07:53:00 Test Item Value Reference Range Comments MAGNESIUM (BEAKER) (test hrlq=467) 1.6 mg/dL 1.6-2.6 Before arterial line is discontinuedBASIC METABOLIC [id number] 07:53:00 Test Item Value Reference Range Comments SODIUM (BEAKER) (test 135 meq/L 136-145 youp=142) POTASSIUM (BEAKER) (test 3.9 meq/L 3.5-5.1 bqac=583) CHLORIDE (BEAKER) (test 109 meq/L 98-107 mqkf=213) CO2 (BEAKER) (test 20 meq/L 22-29 eoom=329) BLOOD UREA NITROGEN 12 mg/dL 7-21 (BEAKER) (test gbqo=329) CREATININE (BEAKER) (test 0.88 mg/dL 0.57-1.25 zdfp=441) GLUCOSE RANDOM (BEAKER) 94 mg/dL 70-105 (test yehr=807) CALCIUM (BEAKER) (test 8.2 mg/dL 8.4-10.2 mhyo=568) EGFR (BEAKER) (test 91 mL/min/1.73 sq m ESTIMATED GFR IS NOT yytu=3828) ACCURATE CREATININE CLEARANCE IN PREDICTING GLOMERULAR FILTRATION RATE. ESTIMATED GFR IS NOT APPLICABLE FOR DIALYSIS PATIENTS. Before arterial line is discontinuedHEMOGLOBIN AND [id number] 06:12:00 Test Item Value Reference Range Comments HEMOGLOBIN (BEAKER) (test bejh=734) 7.6 GM/DL 13.7-17.5 HEMATOCRIT (BEAKER) (test jkdz=736) 23.7 % 40.1-51.0 [id number] 05:44:00 Test Item Value Reference Range Comments PHOSPHORUS (BEAKER) (test ushz=055) 3.0 mg/dL 2.3-4.7 Before arterial line is [id number] 05:44:00 Test Item Value Reference Range Comments MAGNESIUM (BEAKER) (test qrew=466) 1.6 mg/dL 1.6-2.6 Before arterial line is discontinuedBASIC METABOLIC [id number] 05:44:00 Test Item Value Reference Range Comments SODIUM (BEAKER) (test 138 meq/L 136-145 cunu=310) POTASSIUM (BEAKER) (test 4.1 meq/L 3.5-5.1 tmba=760) CHLORIDE (BEAKER) (test 109 meq/L 98-107 yvnf=998) CO2 (BEAKER) (test 21 meq/L 22-29 hwsc=927) BLOOD UREA NITROGEN 19 mg/dL 7-21 (BEAKER) (test deul=801) CREATININE (BEAKER) (test 1.12 mg/dL 0.57-1.25 whkf=751) GLUCOSE RANDOM (BEAKER) 107 mg/dL 70-105 (test pgpf=278) CALCIUM (BEAKER) (test 8.3 mg/dL 8.4-10.2 jzdk=608) EGFR (BEAKER) (test 69 mL/min/1.73 sq m ESTIMATED GFR IS NOT adnw=7254) ACCURATE CREATININE CLEARANCE IN PREDICTING GLOMERULAR FILTRATION RATE. ESTIMATED GFR IS NOT APPLICABLE FOR DIALYSIS PATIENTS. Before arterial line is discontinuedHEMOGLOBIN AND [id number] 05:07:00 Test Item Value Reference Range Comments HEMOGLOBIN (BEAKER) (test artp=694) 7.6 GM/DL 13.7-17.5 HEMATOCRIT (BEAKER) (test ukhv=771) 23.4 % 40.1-51.0 [id number] 06:36:00 Test Item Value Reference Range Comments MAGNESIUM (BEAKER) (test jmns=094) 2.1 mg/dL 1.6-2.6 Before arterial line is discontinuedBASIC METABOLIC [id number] 06:36:00 Test Item Value Reference Range Comments SODIUM (BEAKER) (test 134 meq/L 136-145 nhfx=172) POTASSIUM (BEAKER) (test 4.9 meq/L 3.5-5.1 hpmj=245) CHLORIDE (BEAKER) (test 107 meq/L 98-107 mvbd=506) CO2 (BEAKER) (test 21 meq/L 22-29 jpzt=331) BLOOD UREA NITROGEN 26 mg/dL 7-21 (BEAKER) (test ljuz=473) CREATININE (BEAKER) (test 1.36 mg/dL 0.57-1.25 oaba=772) GLUCOSE RANDOM (BEAKER) 113 mg/dL 70-105 (test hwfg=426) CALCIUM (BEAKER) (test 8.2 mg/dL 8.4-10.2 lnlr=645) EGFR (BEAKER) (test 55 mL/min/1.73 sq m ESTIMATED GFR IS NOT lzcm=3541) ACCURATE CREATININE CLEARANCE IN PREDICTING GLOMERULAR FILTRATION RATE. ESTIMATED GFR IS NOT APPLICABLE FOR DIALYSIS PATIENTS. Before arterial line is [id number] 06:36:00 Test Item Value Reference Range Comments PHOSPHORUS (BEAKER) (test fhjv=737) 3.3 mg/dL 2.3-4.7 HEMOGLOBIN AND [id number] 06:16:00 Test Item Value Reference Range Comments HEMOGLOBIN (BEAKER) (test xzfs=607) 7.9 GM/DL 13.7-17.5 HEMATOCRIT (BEAKER) (test memz=216) 24.4 % 40.1-51.0 [id number] 06:27:00 Test Item Value Reference Range Comments PHOSPHORUS (BEAKER) (test dxqk=558) 3.4 mg/dL 2.3-4.7 Before arterial line is [id number] 06:27:00 Test Item Value Reference Range Comments MAGNESIUM (BEAKER) (test eywx=127) 2.3 mg/dL 1.6-2.6 Before arterial line is discontinuedBASIC METABOLIC [id number] 06:27:00 Test Item Value Reference Range Comments SODIUM (BEAKER) (test 134 meq/L 136-145 efiw=984) POTASSIUM (BEAKER) (test 5.6 meq/L 3.5-5.1 bjpq=455) CHLORIDE (BEAKER) (test 108 meq/L 98-107 owif=389) CO2 (BEAKER) (test 19 meq/L 22-29 wyon=873) BLOOD UREA NITROGEN 27 mg/dL 7-21 (BEAKER) (test xaik=920) CREATININE (BEAKER) (test 1.62 mg/dL 0.57-1.25 emzg=678) GLUCOSE RANDOM (BEAKER) 155 mg/dL 70-105 (test ajdf=327) CALCIUM (BEAKER) (test 8.6 mg/dL 8.4-10.2 cxum=925) EGFR (BEAKER) (test 45 mL/min/1.73 sq m ESTIMATED GFR IS NOT nvhl=2960) ACCURATE CREATININE CLEARANCE IN PREDICTING GLOMERULAR FILTRATION RATE. ESTIMATED GFR IS NOT APPLICABLE FOR DIALYSIS PATIENTS. Before arterial line is discontinuedHEMOGLOBIN AND [id number] 06:12:00 Test Item Value Reference Range Comments HEMOGLOBIN (BEAKER) (test mwll=220) 8.7 GM/DL 13.7-17.5 HEMATOCRIT (BEAKER) (test tjlg=031) 26.1 % 40.1-51.0 BASIC METABOLIC [id number] 16:59:00 Test Item Value Reference Range Comments SODIUM (BEAKER) (test 137 meq/L 136-145 jvvc=568) POTASSIUM (BEAKER) (test 5.0 meq/L 3.5-5.1 gncw=962) CHLORIDE (BEAKER) (test 110 meq/L 98-107 yheg=724) CO2 (BEAKER) (test 17 meq/L 22-29 rrxz=406) BLOOD UREA NITROGEN 18 mg/dL 7-21 (BEAKER) (test obpv=599) CREATININE (BEAKER) (test 1.22 mg/dL 0.57-1.25 psmx=485) GLUCOSE RANDOM (BEAKER) 156 mg/dL 70-105 (test plpr=741) CALCIUM (BEAKER) (test 8.6 mg/dL 8.4-10.2 uswz=603) EGFR (BEAKER) (test 63 mL/min/1.73 sq m ESTIMATED GFR IS NOT fwmb=1078) ACCURATE CREATININE CLEARANCE IN PREDICTING GLOMERULAR FILTRATION RATE. ESTIMATED GFR IS NOT APPLICABLE FOR DIALYSIS PATIENTS. [facility] [id number] 16:13:00 Test Item Value Reference Range Comments HEMOGLOBIN (BEAKER) (test rmde=215) 8.5 GM/DL 13.7-17.5 HEMATOCRIT (BEAKER) (test rana=532) 25.5 % 40.1-51.0 SODIUM NA-STAT [id number] 13:04:00 Test Item Value Reference Range Comments SODIUM (BEAKER) (test esxg=713) 137 meq/L 135-148 POTASSIUM-STAT [id number] 13:04:00 Test Item Value Reference Range Comments POTASSIUM (BEAKER) (test utfd=217) 4.1 meq/L 3.6-5.5 CALCIUM, [id number] 13:04:00 Test Item Value Reference Range Comments CALCIUM IONIZED (BEAKER) (test calm=494) 1.08 mmol/L 1.12-1.27 PH, BLOOD (BEAKER) (test sdqj=1037) 7.39 BLOOD GAS, [id number] 13:04:00 Test Item Value Reference Range Comments PH ARTERIAL (BEAKER) (test mbwg=915) 7.39 7.35-7.45 PCO2 ARTERIAL (BEAKER) (test kutz=763) 36 mmHg 35-45 PO2 ARTERIAL (BEAKER) (test skrn=052) 241 mmHg 80-90 O2 SATURATION ARTERIAL (BEAKER) (test ukwm=054) 99.5 % 96.0-97.0 HCO3 ARTERIAL (BEAKER) (test mexp=647) 21 mmol/L 21-29 BASE EXCESS ARTERIAL (BEAKER) (test dytu=545) -3.2 mmol/L -2.0-3.0 PATIENT TEMPERATURE (BEAKER) (test tlyx=8529) 37.0 C FIO2 (BEAKER) (test dzea=3516) 100.0 % GLUCOSE-STAT [id number] 13:04:00 Test Item Value Reference Range Comments GLUCOSE RANDOM (BEAKER) (test liix=413) 121 mg/dL 70-110 HGB/HCT (H&H) - STAT [id number] 13:04:00 Test Item Value Reference Range Comments HEMOGLOBIN (BEAKER) (test dplc=904) 7.7 g/dL 13.0-16.8 HEMATOCRIT (BEAKER) (test ebqe=140) 23.0 % 40.0-50.0 BASIC METABOLIC [id number] 08:07:00 Test Item Value Reference Range Comments SODIUM (BEAKER) (test 138 meq/L 136-145 zycg=791) POTASSIUM (BEAKER) (test 3.9 meq/L 3.5-5.1 Specimen slightly ucol=547) hemolyzed CHLORIDE (BEAKER) (test 102 meq/L 98-107 mhnb=405) CO2 (BEAKER) (test 26 meq/L 22-29 ywcf=699) BLOOD UREA NITROGEN 17 mg/dL 7-21 (BEAKER) (test vqjh=980) CREATININE (BEAKER) (test 1.00 mg/dL 0.57-1.25 Specimen slightly jcus=357) hemolyzed GLUCOSE RANDOM (BEAKER) 100 mg/dL 70-105 (test rhzf=014) CALCIUM (BEAKER) (test 9.3 mg/dL 8.4-10.2 hyka=779) EGFR (BEAKER) (test 79 mL/min/1.73 sq m ESTIMATED GFR IS NOT hvyd=2437) ACCURATE CREATININE CLEARANCE IN PREDICTING GLOMERULAR FILTRATION RATE. ESTIMATED GFR IS NOT APPLICABLE FOR DIALYSIS PATIENTS. [id number] 07:18:00 Test Item Value Reference Range Comments HEMOGLOBIN SHABANA) (test xohr=675) 11.3 GM/DL 13.7-17.5 Check DOSANG, CV ACCESS, [id number] 13:27:00Reason for Exam:->Malgnant neoplasm of urinary bladder, [...] the patient's medical record by the nurse. Appliances Sample Maker: Daniel Ty MD Timber Management Professor: None. Approach: Right internal jugular vein Estimated [...] needle into the right atrium. A 4 Mauritian micropuncture sheath was placed. A subcutaneous tunnel and pocket were created in the right anterior chest wall by blunt dissection. The pocket was flushed with antibiotic solution. A 6 Mauritian Bard single lumen power injectable port was [...] MDReport Verified Date/Time: 2017 13:27:04 Reading Location: [place] [address] Angio Body Reading Room [id number] 09:22:00 Test Item Value Reference Range Comments PROTIME (BEAKER) (test sqvc=547) 14.0 seconds 11.7-14.7 INR (BEAKER) (test igjw=886) 1.1 <=5.9 PARTIAL THROMBOPLASTIN TIME (BEAKER) (test 28.1 seconds 22.5-36.0 vvbq=401) RECOMMENDED COUMADIN/WARFARIN INR THERAPY RANGESSTANDARD DOSE: 2.0 - 3.0 Includes: PROPHYLAXIS forvenous thrombosis, systemic embolization; TREATMENT for venous thrombosis and/or pulmonary embolus.HIGH RISK: Target INR is 2.5-3.5 for patients with mechanical heart valves.PLATELET [id number] 09:07:00 Test Item Value Reference Range Comments PLATELET COUNT (BEAKER) (test dsqx=882) 283 K/CU MM 150-450 PET/CT, WHOLE BODY [id number] 14:56:00Reason for Exam:->c67.9FINAL REPORT EXAMINATION: FDG-PET/CT, 08/03/2017 [...] feetAdditional imaging: NoneSerum blood glucose: 109CPT Code: 81115 FINDINGS:Head and Neck: Mild bernice activity is [...] consistent with infection or inflammation. Signed: [facility] Verified Date/Time: 08/03/2017 14:56:22 02 :56 PMPOCT-GLUCOSE [id number] 09:20:00 Test Item Value Reference Range Comments POC-GLUCOSE METER (BEAKER) 109 mg/dL 70-110 TESTED AT [facility] [address] [facility] (test imyo=6081) [facility] [address] TISSUE [id number] 14:18:00Surgical Pathology Report Case: [id number] Authorizing Provider: Danny Vaughn MD Collected: 07/25/2017 1140 Ordering Location: [facility] PERIOPERATIVE Received: 07/25/2017 1251 SERVICES [...] GRANULOMATOUS INFLAMMATION Signing Pathologist Direct Phone Line: [phone] signed by Abdulaziz Daniels MD on 07/26/2017 at 2:18 PMApproximately 20% of the tumor shows some degree of squamous differentiation and 1% shows a micropapillary pattern.92551, 625[address]Lyinsbm cancerA. Bladder tumor left lateral wall. B. [...] entirely submitted in cassette B1. DB/ewPerformed.URINALYSIS W/ [id number] 09: 23:00 Test Item Value Reference Range Comments COLOR (BEAKER) (test wxxy=594) Yellow CLARITY (BEAKER) (test bnkm=307) Hazy SPECIFIC GRAVITY UA (BEAKER) (test 1.019 1.001-1.035 ipxj=024) PH UA (BEAKER) (test xutf=975) 5.5 5.0-8.0 PROTEIN UA (BEAKER) (test vwpm=283) 100 mg/dL Negative GLUCOSE UA (BEAKER) (test qnoa=925) Negative Negative KETONES UA (BEAKER) (test sjuh=634) Negative Negative BILIRUBIN UA (BEAKER) (test vdgb=975) Negative Negative BLOOD UA (BEAKER) (test mbuf=789) Moderate Negative NITRITE UA (BEAKER) (test ujto=801) Negative Negative LEUKOCYTE ESTERASE UA (BEAKER) (test Large Negative bdhd=627) UROBILINOGEN UA (BEAKER) (test wkbd=630) 2.0 mg/dL 0.2-1.0 RBC UA (BEAKER) (test rcpn=320) 27 /HPF WBC UA (BEAKER) (test qmfr=711) 155 /HPF MUCUS (BEAKER) (test smey=7879) Rare HYALINE CASTS (BEAKER) (test togf=196) 1 /LPF SOURCE(BEAKER) (test qyqi=6071) Urine, Clean Catch
--- OUTSIDE RECORDS SUMMARY | 2018-12-18 14:01 | XMS REPORT | Clinical Summary ---
:1965 Author Organization [facility] Address [address] [place] [address] Care Team Providers Name Role Phone Jhonny [...] Tomography MD Reg of urinary bladder, 1, [facility] Manuel unspecified site Ct Room ([facility]) 11/14/2018 Hospital Encounter Computed Fernandez Myrick Malignant neoplasm [facility] 11/03/2018 Outside Orders Central Scheduling Fernandez Myrick Malignant neoplasm MD Reg of urinary bladder, unspecified site ([facility]) (Primary Dx) 01/25/2018 Telephone Lianna, Adrianna Mackenzie RD 01/19/2018 Orders Only Urology Danny Vaughn MD 01/02/2018 Surgery Danny Vaughn DISSECTION,LYMPH MD Miguel NODE PELVIC 01/02/2018 Anesthesia Event Yesenia Harris MD 01/02/2018 - Hospital Encounter General Internal Danny Vaughn 01/07/2018 Medicine MD Miguel 12/30/2017 Hospital Encounter Pre-Admission Danny Vaughn MD Resource, Oqmt Preadmit Phone after 12/17/2017 Social History Tobacco Use Types Packs/Day Years [...] Not on file Implants Implanted Type Area H[facility] Community Liaison Device Shelf Model / Serial Identifier Expiration / Lot Date Cath Exp Silv Soak Harnessmaker Apprentice 12.5cmx [id number] - [id number] Pain RAKEL-MADISON 03/08/2020 [id number] / Implanted: Qty: 1 on 01/02/2018 by Danny Vaughn MD Mgmt/Stim / ulator [id number] Cath Exp Silv Soak Harnessmaker Apprentice 12.5cmx [id number] - [id number] Pain RAKEL-MADISON 12/15/2019 [id number] / Implanted: Qty: 1 on 01/02/2018 by Danny Vaughn MD Mgmt/Stim / ulator [id number] Stent,[place] Lab Analyst Diversion 8.4fr Left - [id number] Uro Stent [facility] 08/08/2018 [id number] / Implanted: Qty: 1 on 01/02/2018 by Danny Vaughn MD / [id number] Stent Lab Analyst Uret 8.8ycd00em R [id number] - [id number] Uro Stent COOK:UROLOGY 08/08/2018 [id number] / Implanted: Qty: 1 on 01/02/2018 by Danny Vaughn MD / [id number] Procedures Procedure Name Priority Date/Time Associated Comments [...] procedure are in the results section. after 12/17/[address] Abdomen/Pelvis with IV Contrast (11/14/2018 4:35 PM CDT) Specimen Narrative Performed At FINAL REPORT [facility] CHEST, ABDOMEN, AND PELVIS WITH CONTRAST HISTORY:Malignant neoplasm of urinary bladder, bladder cancer status post NAC and radical cystectomy, RPLND and QwwbdyG39.9 COMPARISON:CT of the chest, abdomen and pelvis [...] 09:03:01 Performing Organization Address City/State/Zipcode Phone Number [facility] Chest with IV Contrast (11/14/2018 4:35 PM CDT) Specimen Narrative Performed At FINAL REPORT [facility] CT CHEST, ABDOMEN, AND PELVIS WITH CONTRAST HISTORY:Malignant neoplasm of urinary bladder, bladder cancer status post NAC and radical cystectomy, RPLND and BsbltcH85.9 COMPARISON:CT of the chest, abdomen and pelvis [...] Verified Date/Time: 11/15/2018 09:03:01 Performing Organization Address [facility] Phone Number GE RIS POC-Creatinine (11/14/2018 4:27 PM CDT) POC-Creatinine 1.3Comment: TESTED AT [facility] 0.6 - 1.3 mg/dL [place] [id number] [facility] [employer] [address] POC-EGFR 58 mL/min/1.73M2 [facility] Specimen Blood Performing Organization Address [facility] Phone Number [address] [address] CENTER INTRAOPERATIVE PATH REPORT - SCAN (10/20/2018 10:00 AM CDT)Only the most recent of4 resultswithin the time period is included. Narrative Performed At RHYTHM STRIP - SCAN (01/10/2018 6:50 AM CDT) Narrative Performed At Urine culture (01/07/2018 12:20 PM CDT) Result >100,000 col/mL Enterococcus [facility] species (A) [facility] [place] Specimen Urine - Urine, Urostomy Organism Antibiotic Method Susceptibility Enterococcus species Ampicillin <=2: Susceptible Enterococcus species Linezolid 2: Susceptible Enterococcus species Nitrofurantoin <=16: Susceptible Enterococcus species Tetracycline <=1: Susceptible Enterococcus species Vancomycin 1: Susceptible Performing Organization Address [facility] Phone Number [address] [address] [place] Hemoglobin and hematocrit POD # 1 (01/07/2018 7:36 AM CDT)Only the most recent of6 resultswithin the time period is included. Hemoglobin 8.3 (L) 13.7 - 17.5 GM/DL [facility] Hematocrit 25.5 (L) 40.1 - 51.0 % [facility] Specimen Blood Performing Organization Address City/[facility]/Zipcode Phone Number [facility] [address] [place], [place] [address] [phone] [place] Phosphorus (01/07/2018 7:36 AM CDT)Only the most recent of5 resultswithin the time period is included. Phosphorus 3.0 2.3 - 4.7 mg/dL [facility] Specimen Blood Narrative Performed At Before arterial line is discontinued [facility] Performing Organization Address City/State/Zipcode Phone Number [facility] [address] [place] [address] [place] Magnesium (01/07/2018 7:36 AM CDT)Only the most recent of5 resultswithin the time period is included. Magnesium 1.6 1.6 - 2.6 mg/dL [facility] Specimen Blood Narrative Performed At Before arterial line is discontinued [facility] Performing Organization Address [facility] Phone Number [facility] [address] [place], [place] [phone] [place] Basic Metabolic Panel - POD 1 (01/07/2018 7:36 AM CDT)Only the most recent of7 resultswithin the time period is included. Sodium 139 136 - 145 meq/L [facility] Potassium 3.5 3.5 - 5.1 meq/L [facility] Chloride 106 98 - 107 meq/L [facility] CO2 26 22 - 29 meq/L [facility] BUN 9 7 - 21 mg/dL [facility] Creatinine 0.85 0.57 - 1.25 mg/dL [facility] Glucose 97 70 - 105 mg/dL [facility] Calcium 8.4 8.4 - 10.2 mg/dL [facility] EGFR 95Comment: ESTIMATED GFR IS mL/min/1.[address] [facility] NOT ACCURATE [facility] CLEARANCE IN PREDICTING GLOMERULAR FILTRATION RATE. ESTIMATED GFR IS NOT APPLICABLE FOR DIALYSIS PATIENTS. Specimen Blood Narrative Performed At Before arterial line is discontinued [facility] Performing Organization Address [facility] Phone Number [address] [address] CENTER TRANSFUSION SERVICE REPORT - SCAN (01/04/2018 6:00 PM CDT)Only the most recent of2 resultswithin the time period is included. Narrative Performed At Prepare Leuko-Red RBC (01/03/2018 11:54 PM CDT) CROSSMATCH COMPATIBLE SAFETRACE TX Unit ABO AB Neg SAFETRACE TX UNIT NUMBER [id number] SAFETRACE TX Status READY SAFETRACE TX Blood Bank Product RED BLOOD CELLS SAFETRACE TX PRODUCT CODE [id number] SAFETRACE TX CROSSMATCH COMPATIBLE SAFETRACE TX Unit ABO AB Neg SAFETRACE TX UNIT NUMBER [id number] SAFETRACE TX Status TRANSFUSED SAFETRACE TX Blood Bank Product RED BLOOD CELLS SAFETRACE TX PRODUCT CODE [id number] SAFETRACE [place] Specimen Other Performing Organization Address [facility] Phone Number SAFETRACE TX Transfuse Leuko-Red RBC (01/02/2018 2:30 PM CDT)Potassium-Stat Lab (01/02/2018 12:59 PM CDT) Potassium 4.1 3.6 - 5.5 meq/L [facility] Specimen Blood, Arterial Performing Organization Address City/[facility]/Zipcode Phone Number [address] [address] [phone] CENTER Sodium Na-Stat Lab (01/02/2018 12:59 PM CDT) Sodium 137 135 - 148 meq/L [facility] Specimen Blood, Arterial Performing Organization Address [facility]/Zipcode Phone Number [address] [address] CENTER Glucose-Stat Lab (01/02/2018 12:59 PM CDT) Glucose 121 (H) 70 - 110 mg/dL [facility] Specimen Blood, Arterial Performing Organization Address [facility] Phone Number [address] [address] [place] HGB/HCT (H&H)-Stat Lab (01/02/2018 12:59 PM CDT) Hemoglobin 7.7 (L) 13.0 - 16.8 g/dL [facility] Hematocrit 23.0 (L) 40.0 - 50.0 % [facility] Specimen Blood, Arterial Performing Organization Address [facility] Phone Number [address] [address] [place] Calcium, Ionized (01/02/2018 12:59 PM CDT) Calcium, Ion 1.08 (L) 1.12 - 1.27 mmol/L [facility] pH, Blood 7.39 [facility] Specimen Blood Performing Organization Address [facility] Phone Number [address] [address] [place] Blood gas, arterial (01/02/2018 12:59 PM CDT) pH, Arterial 7.39 7.35 - 7.45 [facility] pCO2, Arterial 36 35 - 45 mmHg [facility] pO2, Arterial 241 (H) 80 - 90 mmHg [facility] O2 Sat, Arterial 99.5 (H) 96.0 - 97.0 % [facility] HCO3, Arterial 21 21 - 29 mmol/L [facility] Base Excess, Arterial -3.2 (L) -2.0 - 3.0 mmol/L [facility] Patient Temperature 37.0 C [facility] FIO2 100.0 % [facility] Specimen Blood, Arterial Performing Organization Address City/State/Zipcode Phone Number [facility] [address] [place] [address] CENTER Tissue Exam (01/02/2018 9:27 AM CDT) Case Report Surgical Pathology Report Case: [id number] [facility] Authorizing Provider:Danny Vaughn MDCollected: 01/02/2018 0944 [facility] Ordering Location: [facility] PERIOPERATIVE Received: 01/02/2018 0950 SERVICES Pathologist: [...] DISTAL PARA-AORTIC, DISSECTION: [facility] - THREE OF FOUR LYMPH NODES POSITIVE FOR UROTHELIAL CARCINOMA (3/4) [facility] B. LYMPH NODE, LEFT COMMON ILIAC, DISSECTION: [...] PATHOLOGIC DIAGNOSIS Signing Pathologist Direct Phone Line: [phone] SYNOPTIC REPORT URINARY BLADDER: Cystectomy, Anterior Exenteration( Bladder Res - All Specimens) [facility] SPECIMEN Procedure:Radical cystoprostatectomy TUMOR Tumor Site:Left [...] (pT):pT0 Regional Lymph Nodes (pN):pN3 CPT Code(s) 01160, 36025 X 9, 18541 X 4, [facility] 50603 X 11 [facility] CLINICAL HISTORY Bladder cancer [facility] SPECIMEN SOURCE A. Pelvic lymph nodes, [facility] para-aortic lymph nodes; B. [facility] Left common iliac lymph node; C. Distal [...] cm. Two lym [facility] ph nodes are identified measuring from 0.4 x 0.3 x 0.2 cm to 07 x 0.5 x 0.3 cm. The two lymph nodes are bisected and touch preparations are performed. The larger lymph node is submitted in cassettes [id number] [facility] S-[id number], the smaller lymph node is submitted [...] bladder and prostate, blue-left bladder and prostate. Crm Specialist sections are submitted as follows: R1, left ureter resection margin; R2, right ureter resection margin; R3, left ureteral orifice; R4, right ureteral orifice; R5, left ureter representati ve sections; R6, right ureter retail wireless sales representative sections; R7-R23, left lateral bladder wall scar, end submitted; R24, R25, right lateral wall retail wireless sales representative sections; R26, R27, retail wireless sales representative sections of p osterior wall; R28, R29, retail wireless sales representative sections of bladder dome; R30, retail wireless sales representative section of trigone; R31, retail wireless sales representative section of anterior wall ; R32, [...] FROZEN SECTION DIAGNOSIS: [facility] CONSULTATION [id number]: DISTAL PARA-AORTIC LYMPH NODE, EXCISION: [facility] - TUMOR PRESENT IN LYMPH NODE - REPORTED BY DR. ARTHUR TO DR. VAUGHN AT 10:20 AM [id number]: LYMPH NODE, PROXIMAL LIMIT OF DISSECTION PARAORTA, [...] VAUGHN AT 11:45 AM MICROSCOPIC DESCRIPTION Performed. [facility] Specimen Tissue Tissue - Structure of [...] structure) Performing Organization Address City/State/Zipcode Phone Number [address] [address] [phone] CENTER ANESTHESIA CSE BLOCK (01/02/2018 8:56 AM CDT) Narrative Performed At Oliver Hernandez 01/02/20188:56 AM CSE Block Patient location during procedure: OR Start time: 01/02/2018 8:10 AM End time: 01/02/2018 8:19 AM Reason for block: procedure for pain, at surgeon's request and post-op pain management Staffing Anesthesiologist: JACQUELINE COATES Resident/TRIP MOTOR OPERATOR: OLIVER HERNANDEZ Performed by: resident/TRIP MOTOR OPERATOR Preanesthetic Checklist Completed: patient identified, site marked, surgical consent, pre-op evaluation, timeout performed, IV checked, risks and benefits discussed and monitors and equipment checked CSE Patient position: sitting Prep: ChloraPrep Patient monitoring: heart rate, paperhanger and painter and continuous pulse ox Approach: midline Spinal [...] post-op pain management Staffing Anesthesiologist: JACQUELINE COATES Resident/TRIP MOTOR OPERATOR: OLIVER HERNANDEZ Performed by: resident/TRIP MOTOR OPERATOR Preanesthetic Checklist Completed: patient identified, site marked, surgical consent, pre-op evaluation , timeout performed, IV checked, risks and benefits discussed and monitors and equipment checked CSE Patient position: sitting Prep: ChloraPrep Patient monitoring: heart rate, paperhanger and painter and continuous pulse ox Approach: midline Spinal [...] procedure. Oliver Hernandez MD Anesthesia- PGY 3 [facility] Type and screen, automated (01/02/2018 6:33 AM CDT) ABO/RH AUTOMATED (BEAKER) AB NEGATIVE [facility] Ab Scrn NEGATIVE [facility] Specimen Blood Performing Organization Address City/State/Zipcode Phone Number [facility] [address] [place] [address] Hemoglobin (01/02/2018 6:33 AM CDT) Hemoglobin 11.3 (L) 13.7 - 17.5 GM/DL [facility] Specimen Blood Narrative Performed At Check DOS [facility] Performing Organization Address City/State/Zipcode Phone Number [facility] [address] [place] [address] CENTER after 12/17/2017 Insurance Payer Benefit Plan / Subscriber ID Type Phone Address Group BLUE CROSS/BLUE BCBS PPO POS EPO xxxxxxxxxxxx PPO [phone] [address] [place] [address] Advance Directives For more information, please contact:[facility] [place], [place] [phone] Code Status Date Activated Date Inactivated Comments Full Code 01/02/2018 4:21 PM 01/07/2018 7:49 PM This code status was determined by: Patient Full Code 08/16/2017 2:09 PM 08/16/2017 4:18 PM This code status was determined by: Patient
[2018-12-18] MEDS ORDERED: NA CHLORIDE 0.9% 1,000 ML ONE (14:30)
[2018-12-18 14:51] LABS: Protime INR 1.25
[2018-12-18 15:01] LABS: Basophils % 0.9 % (0-1.3); Eosinophils % 3.7 % (0-4.4); Hematocrit 42.7 % (39.6-49.0); Lymphocytes % 28.5 % (15.3-44.8); Monocytes % 8.9 % (3.3-12.3); RBC Red Blood Cell Count 4.71 M/uL (4.33-5.43)
[2018-12-18 15:16] LABS: ALT/SGPT 63 U/L (12-78); AST/SGOT 53 U/L (15-37); Albumin 4.1 g/dL (3.4-5.0); Alkaline Phosphatase 115 U/L (45-117); BUN Blood Urea Nitrogen 18 mg/dL (7-18); Bicarbonate 29 mmol/L (21-32); Bilirubin Direct 0.2 mg/dL (0-0.2); Glucose Level 106 mg/dL (74-106); Lipase 190 U/L (73-393); Magnesium 2.2 mg/dL (1.8-2.4); NT PRO-BNP 37 pg/mL (<125); Potassium 3.7 mmol/L (3.5-5.1); Sodium Level 141 mmol/L (136-145); Troponin (Emerg Dept Use Only) < 0.02 ng/mL (0.0-0.045)
[2018-12-18] MEDS ORDERED: CIPROFLOXACIN 400mg IV 400 MG/200 ML BAG IV ONE (16:52)
[2018-12-18] MEDS ORDERED: FENTANYL CITR 100 MCG/2 ML ONE (16:52)
[2018-12-18] MEDS ORDERED: METRONIDAZOLE 500mg IVPB 500 MG/100 ML BAG IV ONE (16:52)
[2018-12-18] MEDS ORDERED: ONDANSETRON 4 MG/2 ML VIAL ONE (16:52)
--- NOTE | 2018-12-18 17:18 | EKG ---
Test Date: 2018-12-18 Test Time: 14:38:48 Wind Field Service Manager: KRISTIE MEASUREMENT RESULTS: Intervals: Rate: 80 WA: 166 QRSD: 110 QT: 394 QTc: 454 [place]: P: 67 WA: 166 QRS: 63 T: 46 INTERPRETIVE STATEMENTS: Normal sinus rhythm Normal ECG Compared to ECG 11/29/2018 00:57:12 Sinus bradycardia no longer present Incomplete right bundle-branch block no longer present Electronically Signed On 12-18-18 17:17:15 CDT by Wilberto Gibson
--- NOTE | 2018-12-18 17:47 | RAD REPORT ---
EXAM DESCRIPTION: CT - Abdomen Pelvis W Contrast - 12/18/2018 5:09 pm CLINICAL HISTORY: Abdominal pain. COMPARISON: January 2018 TECHNIQUE: Computed axial tomography of the abdomen and pelvis was obtained. 100 cc Isovue-300 is ad ministered intravenously. Oral contrast was given. All CT scans are performed using dose optimization technique as appropriate and may include automated exposure control or mA/KV adjustment according to patient size. FINDINGS: Bladder resection. Neobladder in place. Mild bilateral hydronephrosis with mild ureteral dilatation. Fatty liver Spleen, pancreas, adrenals and kidneys appear unremarkable. The appendix is normal caliber. There is no evidence of diverticulitis Wall of proximal descending colon appears thickened. Small umbilical hernia. Small ventral hernia lies couple centimeter superior containing fat IMPRESSION: Wall of proximal descending colon appears thickened. This may represent colitis, spasm or mass. Mild bilateral hydronephrosis with mild ureteral dilatation may be secondary to reflux. Bladder resec tion with neobladder place
--- NOTE | 2018-12-18 17:49 | RAD REPORT ---
EXAM DESCRIPTION: Rasheed Single View12/18/2018 3:06 pm CLINICAL HISTORY: Abdominal pain COMPARISON: November 2018 FINDINGS: The lungs appear clear of acute infiltrate. The heart is normal size . A central venous l ine is in place IMPRESSION: No acute abnormalities displayed
--- NOTE | 2018-12-18 17:53 | EDPHYS ---
Physician Documentation [facility] Name: Diaz Sadler Age: 53 yrs Sex: Male : 1965 Arrival Date: 12/18/2018 Time: 14:01 Bed 25 Private MD: ED Physician Ricardo Davis HPI: 12/18 16:24 This 53 yrs old Male presents to ER via Ambulatory with complaints of srikanth Abdominal Pain. 16:24 The patient presents with abdominal pain in the lower abdomen. Onset: The srikanth symptoms/episode began/occurred 2 day(s) ago. The symptoms do not radiate. Associated signs and symptoms: none. Modifying factors: The symptoms are alleviated by nothing, the symptoms are aggravated by nothing. Severity of pain: At its worst the pain was mild in the emergency department the pain is unchanged. The patient has not experienced similar symptoms in the past. Historical: - Allergies: 14:08 Codeine; itch; aj - Home Meds: 19:15 Synthroid Oral [Active]; unknown neuropathy med [Active]; mg2 - PMHx: 14:12 Bladder CA; Hypothyroidism; neuropathy; iw - PSHx: 14:12 neobladder; prostate removed; iw - Immunization history:: Adult Immunizations not up to date. - Social history:: Smoking status: Patient/guardian denies using tobacco. - Ebola Screening: : Patient negative for fever greater than or equal to 101.5 degrees Fahrenheit, and additional compatible Ebola Virus Disease symptoms Patient denies exposure to infectious person Patient denies travel to an Ebola-affected area in the 21 days before illness onset. - Family history:: not pertinent. ROS: 16:24 Constitutional: Negative for fever, chills, and weight loss, Eyes: Negative for injury, srikanth pain, redness, and discharge, ENT: Negative for injury, pain, and discharge, Neck: Negative for injury, pain, and swelling, Cardiovascular: Negative for chest pain, palpitations, and edema, Respiratory: Negative for shortness of breath, cough, wheezing, and pleuritic chest pain, Back: Negative for injury and pain, : Negative for injury, bleeding, discharge, and swelling, MS/Extremity: Negative for injury and deformity, Skin: Negative for injury, rash, and discoloration, Neuro: Negative for headache, weakness, numbness, tingling, and seizure, Psych: Negative for depression, anxiety, suicide ideation, homicidal ideation, and hallucinations, Allergy/Immunology: Negative for hives, rash, and allergies, Endocrine: Negative for neck swelling, polydipsia, polyuria, polyphagia, and marked weight changes, Hematologic/Lymphatic: Negative for swollen nodes, abnormal bleeding, and unusual bruising. 16:24 Abdomen/GI: Positive for abdominal pain, of the right lower quadrant and left lower quadrant. Exam: 16:24 Constitutional: This is a well developed, well nourished patient who is awake, alert, srikanth and in no acute distress. Head/Face: Normocephalic, atraumatic. Eyes: Pupils equal round and reactive to light, extra-ocular motions intact. Lids and lashes normal. Conjunctiva and sclera are non-icteric and not injected. Cornea within normal limits. Periorbital areas with no swelling, redness, or edema. ENT: Nares patent. No nasal discharge, no septal abnormalities noted. Tympanic membranes are normal and external auditory canals are clear. Oropharynx with no redness, swelling, or masses, exudates, or evidence of obstruction, uvula midline. Mucous membranes moist. Neck: Trachea midline, no thyromegaly or masses palpated, and no cervical lymphadenopathy. Supple, full range of motion without nuchal rigidity, or vertebral point tenderness. No Meningismus. Chest/axilla: Normal chest wall appearance and motion. Nontender with no deformity. No lesions are appreciated. Cardiovascular: Regular rate and rhythm with a normal S1 and S2. No gallops, murmurs, or rubs. Normal PMI, no JVD. No pulse deficits. Respiratory: Lungs have equal breath sounds bilaterally, clear to auscultation and percussion. No rales, rhonchi or wheezes noted. No increased work of breathing, no retractions or nasal flaring. Back: No spinal tenderness. No costovertebral tenderness. Full range of motion. Male : Normal genitalia with no discharge or lesions. Skin: Warm, dry with normal turgor. Normal color with no rashes, no lesions, and no evidence of cellulitis. MS/ Extremity: Pulses equal, no cyanosis. Neurovascular intact. Full, normal range of motion. Neuro: Awake and alert, GCS 15, oriented to person, place, time, and situation. Cranial nerves II-XII grossly intact. Motor strength 5/5 in all extremities. Sensory grossly intact. Cerebellar exam normal. Normal gait. Psych: Awake, alert, with orientation to person, place and time. Behavior, mood, and affect are within normal limits. 16:24 Abdomen/GI: Inspection: abdomen appears normal, Bowel sounds: normal, Palpation: mild abdominal tenderness, moderate abdominal tenderness, in the suprapubic area, right lower quadrant and left lower quadrant, Liver: no appreciated palpable abnormalities, Hernia: not appreciated. Vital Signs: 14:08 BP 183 / 83; Pulse 89; Resp 17; Temp 97.7; Pulse Ox 96% on R/A; Weight 88.45 kg; Height aj 5 ft. 11 in. (180.34 cm); 15:00 BP 139 / 83; Pulse 73; Resp 17; Temp 97.8(O); Pulse Ox 99% on R/A; ca1 15:54 BP 125 / 88; Pulse 60; Resp 18 S; Pulse Ox 98% on R/A; ca1 17:22 BP 129 / 66; Pulse 60; Resp 18; Pulse Ox 100% on R/A; mg2 19:14 BP 124 / 78; Pulse 57; Resp 18; Temp 97.9(O); Pulse Ox 100% on R/A; mg2 14:08 Body Mass Index 27.20 (88.45 kg, 180.34 cm) MDM: 14:10 Patient medically screened. [facility] 16:26 Data reviewed: vital signs, nurses notes, lab test result(s), EKG, radiologic studies, [facility] CT scan, plain films. 12/18 14:11 Order name: Basic Metabolic Panel [facility] 12/18 14:11 Order name: CBC with Diff [facility] 12/18 14:11 Order name: LFT's [facility] 12/18 14:11 Order name: Magnesium; Complete Time: 16:06 [facility] 12/18 14:11 Order name: NT PRO-BNP; Complete Time: 16:06 [facility] 12/18 14:11 Order name: PT-INR; Complete Time: 15:18 [facility] 12/18 14:11 Order name: Troponin (emerg Dept Use Only); Complete Time: 16:06 [facility] 12/18 14:11 Order name: XRAY Chest (1 view); Complete Time: 17:54 [facility] 12/18 14:11 Order name: Lipase; Complete Time: 16:06 [facility] 12/18 14:11 Order name: Urine Culture [facility] 12/18 14:14 Order name: Basic Metabolic Panel; Complete Time: 15:18 [facility] 12/18 14:14 Order name: CBC with Automated Diff; Complete Time: 15:18 [facility] 12/18 14:14 Order name: Liver (Hepatic) Function; Complete Time: 16:06 [facility] 12/18 15:49 Order name: Urine Dipstick--Ancillary (enter results) 12/18 14:11 Order name: EKG; Complete Time: 14:15 [facility] 12/18 14:11 Order name: Cardiac monitoring; Complete Time: 14:30 [facility] 12/18 14:11 Order name: EKG - Nurse/Tech; Complete Time: 14:36 [facility] 12/18 14:11 Order name: IV Saline Lock; Complete Time: 14:30 [facility] 12/18 14:11 Order name: Labs collected and sent; Complete Time: 14:29 [facility] 12/18 14:11 Order name: O2 Per Protocol; Complete Time: 14:30 [facility] 12/18 14:11 Order name: O2 Sat Monitoring; Complete Time: 14:30 [facility] 12/18 14:11 Order name: CT Abd/Pelvis - PO and IV Contrast; Complete Time: 17:51 [facility] 12/18 14:11 Order name: Urine Dipstick-Ancillary (obtain specimen); Complete Time: 15:51 [facility] Administered Medications: 14:30 Drug: NS 0.9% 1000 ml Route: IV; Rate: 125 ml/hr; Site: left antecubital; ca1 19:45 Follow up: Response: No adverse reaction; IV Status: Infusion continued upon admission; mg2 IV Intake: 800ml 16:52 Drug: Flagyl 500 mg Volume: 100 ml; Route: IVPB; Rate: 200 ml/hr; Infused Over: 30 mg2 mins; Site: left antecubital; 19:44 Follow up: Response: No adverse reaction; IV Status: Completed infusion mg2 16:52 Drug: fentaNYL (PF) 50 mcg Route: IVP; Site: left antecubital; mg2 19:44 Follow up: Response: No adverse reaction; Marked relief of symptoms mg2 16:52 Drug: Zofran 4 mg Route: IVP; Site: left antecubital; mg2 19:44 Follow up: Response: No adverse reaction; Marked relief of symptoms mg2 17:48 Drug: Cipro 400 mg Volume: 200 ml; Route: IVPB; Infused Over: 60 mins; Site: [facility] [place] antecubital; 19:44 Follow up: Response: No adverse reaction; IV Status: Completed infusion mg2 18:19 Drug: Rocephin - (cefTRIAXone) 1 grams Route: IVPB; Infused Over: 30 mins; Site: [facility] [place] antecubital; 19:44 Follow up: Response: No adverse reaction; IV Status: Completed infusion mg2 Disposition: 12/18/18 17:52 Hospitalization ordered by Fidencio Stein for Inpatient Admission. Preliminary diagnosis are Abdominal tenderness, Left sided colitis, Hydronephrosis with ureteral stricture, not elsewhere classified - neobladder. - Bed requested for Telemetry/MedSurg (Inpatient). - Status is Inpatient Admission. mg2 - Condition is Fair. - Problem is new. - Symptoms have improved. UTI on Admission? Yes Signatures: Dispatcher [employer] EDMS Demetrice Santiago Diana, RN RN dw Myers, Amanda, RN RN aj Anderson, Corey, MD MD cha Williams, Irene, RN RN Deep Barnes RN RN mg2 Anna Sarah RN RN ca1 Corrections: (The following items were deleted from the chart) 18:38 18:40 12/18/2018 17:52 Hospitalization Ordered by Fidencio Stein DO for Inpatient dw Admission. Preliminary diagnosis is Abdominal tenderness; Left sided colitis; Hydronephrosis with ureteral stricture, not elsewhere classified - neobladder. Bed requested for Telemetry/MedSurg (Inpatient). Status is Inpatient Admission. Condition is Fair. Problem is new. Symptoms have improved. UTI on Admission? Yes. bd 18:40 17:52 Hospitalization Ordered by Fidencio Stein DO for Inpatient Admission. Preliminary bd diagnosis is Abdominal tenderness; Left sided colitis; Hydronephrosis with ureteral stricture, not elsewhere classified - neobladder. Bed requested for Telemetry/MedSurg (Inpatient). Status is Inpatient Admission. Condition is Fair. Problem is new. Symptoms have improved. UTI on Admission? Yes. srikanth 19:59 18:38 12/18/2018 17:52 Hospitalization Ordered by Fidencio Stein DO for Inpatient mg2 Admission. Preliminary diagnosis is Abdominal tenderness; Left sided colitis; Hydronephrosis with ureteral stricture, not elsewhere classified - neobladder. Bed requested for Telemetry/MedSurg (Inpatient). Status is Inpatient Admission. Condition is Fair. Problem is new. Symptoms have improved. UTI on Admission? Yes. dw
--- NOTE | 2018-12-18 17:53 | ER ---
Nurse's Notes [facility] Name: Diaz Sadler Age: 53 yrs Sex: Male : 1965 Arrival Date: 12/18/2018 Time: 14:01 Bed 25 Private MD: Diagnosis: Abdominal tenderness;Left sided colitis;Hydronephrosis with ureteral stricture, not elsewhere classified-neobladder Presentation: 12/18 14:07 Presenting complaint: Patient states: Sharp lower abdominal pain that started suddenly aj this afternoon when patient stepped up into his truck. Transition of care: patient was not received from another setting of care. Onset of symptoms was December 18, 2018. Care prior to arrival: None. 14:07 Method Of Arrival: Ambulatory aj 14:07 Acuity: TERESA 3 aj 15:00 Risk Assessment: Do you want to hurt yourself or someone else? Patient reports no ca1 desire to harm self or others. Initial Sepsis Screen: Does the patient meet any 2 criteria? No. Patient's initial sepsis screen is negative. Does the patient have a suspected source of infection? No. Patient's initial sepsis screen is negative. Triage Assessment: 14:08 General: Appears in no apparent distress. uncomfortable, Behavior is calm, cooperative, aj appropriate for age. Pain: Complains of pain in suprapubic area, right lower quadrant and left lower quadrant. Neuro: Level of Consciousness is awake, alert, obeys commands, Oriented to person, place, time, situation, Appropriate for age. Respiratory: Airway is patent Respiratory effort is even, unlabored, Respiratory pattern is regular, symmetrical. GI: Reports lower abdominal pain. Derm: Skin is intact, is healthy with good turgor, Skin is pink, warm \T\ dry. normal. Historical: - Allergies: 14:08 Codeine; itch; aj - Home Meds: 19:15 Synthroid Oral [Active]; unknown neuropathy med [Active]; mg2 - PMHx: 14:12 Bladder CA; Hypothyroidism; neuropathy; iw - PSHx: 14:12 neobladder; prostate removed; iw - Immunization history:: Adult Immunizations not up to date. - Social history:: Smoking status: Patient/guardian denies using tobacco. - Ebola Screening: : Patient negative for fever greater than or equal to 101.5 degrees Fahrenheit, and additional compatible Ebola Virus Disease symptoms Patient denies exposure to infectious person Patient denies travel to an Ebola-affected area in the 21 days before illness onset. - Family history:: not pertinent. Screenin:10 Abuse screen: Denies threats or abuse. Denies injuries from another. Nutritional ca1 screening: No deficits noted. Tuberculosis screening: No symptoms or risk factors identified. Fall Risk None identified. Assessment: 14:10 General: Appears in no apparent distress. uncomfortable, Behavior is calm, cooperative, ca1 appropriate for age. Pain: Complains of pain in abdomen and left lower quadrant and right lower quadrant and suprapubic area Pain does not radiate. Pain currently is 9 out of 10 on a pain scale. Quality of pain is described as squeezing, Pain began 4 hours ago. Is continuous. Neuro: Level of Consciousness is awake, alert, obeys commands, Oriented to person, place, time, situation. Cardiovascular: Heart tones S1 S2 present Capillary refill < 3 seconds Patient's skin is warm and dry. pt has port-a-cath at R chest . Respiratory: Airway is patent is compromised Respiratory effort is even, unlabored, Respiratory pattern is regular, symmetrical, Breath sounds are clear bilaterally. GI: Abdomen is flat, non-distended, Bowel sounds present X 4 quads. Abd is soft X 4 quads Abdomen is tender to palpation in suprapubic area, right lower quadrant and left lower quadrant Reports nausea. : to gravity drainage condom cath. EENT: No deficits noted. No signs and/or symptoms were reported regarding the EENT system. Derm: Skin is intact, is healthy with good turgor, Skin is pink, warm \T\ dry. Musculoskeletal: Circulation, motion, and sensation intact. Capillary refill < 3 seconds, Range of motion: intact in all extremities. 15:00 Reassessment: Patient appears in no apparent distress at this time. Patient and/or ca1 family updated on plan of care and expected duration. Pain level reassessed. Patient is alert, oriented x 3, equal unlabored respirations, skin warm/dry/pink. 15:54 Reassessment: Patient appears in no apparent distress at this time. Patient is alert, ca1 oriented x 3, equal unlabored respirations, skin warm/dry/pink. 19:42 Reassessment: Patient appears in no apparent distress at this time. seen by dr soliman. mg2 Patient denies pain at this time. Patient states symptoms have improved. Vital Signs: 14:08 BP 183 / 83; Pulse 89; Resp 17; Temp 97.7; Pulse Ox 96% on R/A; Weight 88.45 kg; Height aj 5 ft. 11 in. (180.34 cm); 15:00 BP 139 / 83; Pulse 73; Resp 17; Temp 97.8(O); Pulse Ox 99% on R/A; ca1 15:54 BP 125 / 88; Pulse 60; Resp 18 S; Pulse Ox 98% on R/A; ca1 17:22 BP 129 / 66; Pulse 60; Resp 18; Pulse Ox 100% on R/A; mg2 19:14 BP 124 / 78; Pulse 57; Resp 18; Temp 97.9(O); Pulse Ox 100% on R/A; mg2 14:08 Body Mass Index 27.20 (88.45 kg, 180.34 cm) aj ED Course: 14:01 Patient arrived in ED. tw3 14:08 Triage completed. aj 14:08 Arm band placed on right wrist. Patient placed in an exam room. aj 14:09 Ricardo Davis MD is Attending Physician. srikanth 14:10 Patient has correct armband on for positive identification. Placed in gown. Bed in low ca1 position. Call light in reach. Side rails up X 1. traffic monitor specialist on. Pulse ox on. NIBP on. Warm blanket given. 14:10 No provider procedures requiring assistance completed. ca1 14:29 Initial lab(s) drawn, by ia, sent to lab. Inserted saline lock: 20 gauge in left lt1 antecubital area, using aseptic technique. 14:47 Nic Painting, RN is Primary Nurse. ae4 14:55 EKG done, by astro technician. reviewed by Ricardo Davis MD. sm3 15:03 XRAY Chest (1 view) In Process Unspecified. EDMS 15:51 Urine Culture Sent. lt1 17:[address] via wheelchair. nj 17:09 CT Abd/Pelvis - PO and IV Contrast In Process Unspecified. EDMS 17:51 Fidencio Soliman DO is Hospitalizing Provider. srikanth 19:43 Patient admitted, IV remains in place. mg2 Administered Medications: 14:30 Drug: NS 0.9% 1000 ml Route: IV; Rate: 125 ml/hr; Site: left antecubital; ca1 19:45 Follow up: Response: No adverse reaction; IV Status: Infusion continued upon admission; mg2 IV Intake: 800ml 16:52 Drug: Flagyl 500 mg Volume: 100 ml; Route: IVPB; Rate: 200 ml/hr; Infused Over: 30 mg2 mins; Site: left antecubital; 19:44 Follow up: Response: No adverse reaction; IV Status: Completed infusion mg2 16:52 Drug: fentaNYL (PF) 50 mcg Route: IVP; Site: left antecubital; mg2 19:44 Follow up: Response: No adverse reaction; Marked relief of symptoms mg2 16:52 Drug: Zofran 4 mg Route: IVP; Site: left antecubital; mg2 19:44 Follow up: Response: No adverse reaction; Marked relief of symptoms mg2 17:48 Drug: Cipro 400 mg Volume: 200 ml; Route: IVPB; Infused Over: 60 mins; Site: left mg2 antecubital; 19:44 Follow up: Response: No adverse reaction; IV Status: Completed infusion mg2 18:19 Drug: Rocephin - (cefTRIAXone) 1 grams Route: IVPB; Infused Over: 30 mins; Site: [facility] [place] antecubital; 19:44 Follow up: Response: No adverse reaction; IV Status: Completed infusion mg2 Intake: 19:45 IV: 800ml; Total: 800ml. mg2 18:58 Condom Cath ca1 Output: 18:58 Urine: 300ml (Voided); Total: 300ml. ca1 18:58 Condom Cath ca1 Outcome: 17:52 Decision to Hospitalize by Provider. srikanth 19:43 Admitted to Med/surg accompanied by tech, via wheelchair, room 204, with chart, Report mg2 called to JESUS Ibrahim 19:43 Condition: stable 19:43 Instructed on the need for admit, Demonstrated understanding of instructions. 19:59 Patient left the ED. mg2 Signatures: Dispatcher [employer] EDLashay Thakur RN RN aj Anderson, Corey, MD MD cha Williams, Irene, RN RN iw Jordan, Nathan nj Wade, Tia tw3 Deep Barnes RN RN mg2 Quin Todd 3 Anna Sarah RN RN ca1 Joyce Clark lt1 Nic Painting RN RN ae4 Corrections: (The following items were deleted from the chart) 19:16 19:14 BP 124 / 78; Pulse 50bpm; Resp 18bpm; Pulse Ox 100% RA; Temp 97.9F Oral; mg2 mg2
[2018-12-18] MEDS ORDERED: CEFTRIAXONE/SWI 1gm 1 GM/10 ML SYR ONE (18:16)
[2018-12-18 18:19] LABS: Urine Blood 1+ (NEG); Urine Glucose NEGATIVE (NEG); Urine Protein NEGATIVE (NEG); Urine Specific Gravity 1.015 (1.005-1.030)
--- NOTE | 2018-12-18 18:41 | P.HP ---
Certification for Inpatient Patient admitted to: Observation With expected LOS: <2 Midnights Patient will require the following post-hospital care: None Practitioner: I am a practitioner with admitting privileges, knowledge of patient current condition, hospital course, and medical plan of care. Services: Services provided to patient in accordance with Admission requirements found in Title 42 Section 412.3 of the Code of Federal Regulations Patient History Date of Service: 12/18/18 Primary Care Provider: Dr. Arias; Urology-Dr. Ramirez/Roderick; Oncology-Dr. Myrick Reason for admission: Abdominal pain History of Present Illness: 53-year-old male presented to emergency room with abdominal pain. Patient with history of bladder cancer now with neobladder, hypothyroidism and recent DVT on anti coagulation therapy. Patient reported abdominal pain since yesterday. It is mainly to the lower umbilical region and to the left side. He denied any significant nausea or vomiting. He denied any changes in stool. No mention of fever. The pain persisted to the point were he came to the ER for further evaluation. In the ER patient evaluated. White count 6.8, hemoglobin 14. Sodium 141, potassium 3.7 creatinine 1.24 with a GFR of 61. Chest x-ray unremarkable. CT scan shows inflammation to the descending colon and likely colitis. Bilateral hydronephrosis with bladder absent with neobladder in place. Due to his symptoms and findings patient was admitted for observation. Patient started on IV antibiotic therapy and IV fluids in the emergency room. When I saw the patient in the ER, he appeared comfortable. Pain had improved. Patient reports recent DVT diagnosed on November 29. He is on anti coagulation therapy. Allergies Penicillins Allergy (Intermediate, Verified 11/30/11 20:52) Rash hydrocodone Allergy (Verified 11/29/18 05:15) Itching Home medications list reviewed: Yes Home Medications: Apixaban [Eliquis] 5 mg PO BID #74 tablet 11/29/18 Doxycycline Hyclate 100 mg PO BID #20 tablet 11/29/18 Gabapentin 1 cap PO BEDTIME 11/29/18 Levothyroxine [Synthroid*] 1 tab PO DAILY 11/29/18 - Past Medical/Surgical History Diabetic: No -: History of stage IV bladder cancer -: Hypothyroidism -: Neuropathy -: Recent DVT left lower extremity -: Bladder and prostate resection with bladder pouch -: Eligio bladder Psychosocial/ Personal History: Patient is - Family History Family History: Reviewed- Non-Contributory - Family History Father -: Cancer - Social History Smoking Status: Never smoker Alcohol use: Yes CD- Drugs: No Caffeine use: Yes Place of Residence: Home Review of Systems General: As per HPI Eyes: Unremarkable ENT: Unremarkable Respiratory: Unremarkable Cardiovascular: Unremarkable Gastrointestinal: Abdominal Pain, As per HPI Genitourinary: Unremarkable Musculoskeletal: Unremarkable Integumentary: Unremarkable Neurological: Unremarkable Lymphatics: Unremarkable Physical Examination - Physical Exam General: Alert, In no apparent distress, Oriented x3, Cooperative HEENT: Atraumatic, Normocephalic, PERRLA, Other (Dry mucous membranes) Neck: Supple, No Thyromegaly Respiratory: Clear to auscultation bilaterally, Normal air movement Cardiovascular: Normal pulses, Regular rate/rhythm Gastrointestinal: Normal bowel sounds, Soft and benign, Non-distended, Tenderness (Pain to the left side of the abdomen. Pain also noted to the midline. Scars to the midline from prior surgery noted.) Musculoskeletal: No erythema, No tenderness, No warmth Integumentary: No tenderness/swelling, No erythema, No warmth, No cyanosis Neurological: Normal speech, Normal strength at 5/5 x4 extr, Normal tone, Normal affect Urinary: Other (Condom catheter in place) - Studies Laboratory Data (last 24 hrs) 12/18/18 14:27: PT 14.6 H, INR 1.25 12/18/18 14:27: WBC 6.8, Hgb 14.2, Hct 42.7, Plt Count 184 12/18/18 14:27: Sodium 141, Potassium 3.7, BUN 18, Creatinine 1.24, Glucose 106 , Magnesium 2.2, Total Bilirubin 1.0, AST 53 H, ALT 63, Alkaline Phosphatase 115 , Lipase 190 Assessment and Plan - Plan Impression: Abdominal pain secondary to left-sided colitis History of bladder cancer status post major surgery now with neobladder, CT showing bilateral hydronephrosis likely chronic Hypothyroidism Recent DVT on anti coagulation therapy Neuropathy Plan: Abdominal pain secondary to left-sided colitis: Patient will be admitted for observation. IV antibiotics initiated. Will also start IV fluids. Blood and urine culture cultures obtained. Patient does not have any significant nausea vomiting at this time. Therefore, will start clear liquid diet and advance as tolerated. Continue to reassess and monitor abdominal pain. Anticipate improvement over the next 24-48 hr. If clinically improved patient can likely be discharged home soon. Patient will need colonoscopy in the future. History of bladder cancer status post major surgery now with neobladder, CT showing bilateral hydronephrosis likely chronic: Urine culture obtained. White count stable. Will discuss case further with urology to make sure abdominal pain not related to hydronephrosis. Will monitor closely. Hypothyroidism: Restart home medication. Recent DVT on anti coagulation therapy: Restart Eliquis as this was recently started. Neuropathy: Restart gabapentin. Discharge Plan: Home Plan to discharge in: 48 Hours - Advance Directives Does patient have a Living Will: No Does patient have a Durable POA for Healthcare: No - Code Status/Comfort Care Code Status Assessed: Yes (Patient is full code) Time Spent Managing Pts Care (In Minutes): 55
[2018-12-18] MEDS ORDERED: ONDANSETRON 4 MG/2 ML VIAL IV PRN (20:01)
[2018-12-18] MEDS ORDERED: ACETAMINOPHEN 500 MG TAB PO PRN (20:01)
[2018-12-18] MEDS ORDERED: TRAMADOL HCL 50 MG TAB PO PRN (20:01)
[2018-12-18 20:40] VITALS: BMI 26.9
[2018-12-18] MEDS: FAMOTIDINE 20 MG TAB PO SCH (21:46)
[2018-12-18] MEDS: GABAPENTIN 300 MG CAP PO SCH (21:46)
[2018-12-18] MEDS: NA CHLORIDE 0.9% 1,000 ML IV SCH (21:46)
[2018-12-18] MEDS: APIXABAN 5 MG TABLET PO SCH (21:47)
[2018-12-18] MEDS: MORPHINE 2 MG/ML SYR IV PRN (22:33)
[2018-12-18] MEDS: METRONIDAZOLE 500mg IVPB 500 MG/100 ML BAG IV SCH (23:58)
[2018-12-19] MEDS: MORPHINE 2 MG/ML SYR IV PRN ×2 (04:35→21:11)
[2018-12-19] MEDS: NA CHLORIDE 0.9% 1,000 ML IV SCH (05:49)
[2018-12-19] MEDS: CIPROFLOXACIN 400mg IV 400 MG/200 ML BAG IV SCH ×2 (05:49→16:44)
[2018-12-19] MEDS: LEVOTHYROXINE SOD 0.1 MG TAB PO SCH (05:49)
[2018-12-19 06:17] LABS: Absolute Lymphocytes (CBC) 1.4 K/uL (0.7-4.9); Basophils % 1.4 % (0-1.3); Eosinophils % 6.7 % (0-4.4); Hematocrit 38.4 % (39.6-49.0); Lymphocytes % 26.4 % (15.3-44.8); MPV 8.1 fL (7.6-11.3); Monocytes % 12.7 % (3.3-12.3); RBC Red Blood Cell Count 4.17 M/uL (4.33-5.43)
[2018-12-19 06:32] LABS: Magnesium 2.2 mg/dL (1.8-2.4); Potassium 4.2 mmol/L (3.5-5.1)
[2018-12-19] MEDS: METRONIDAZOLE 500mg IVPB 500 MG/100 ML BAG IV SCH ×2 (08:47→16:43)
[2018-12-19] MEDS: FAMOTIDINE 20 MG TAB PO SCH ×2 (08:47→21:06)
[2018-12-19] MEDS: APIXABAN 5 MG TABLET PO SCH ×2 (08:47→21:06)
--- NOTE | 2018-12-19 12:33 | P.PN ---
Subjective Date of Service: 12/19/18 Primary Care Provider: Dr. Arias; Urology-Dr. Ramirez/Roderick; Oncology-Dr. Myrick Chief Complaint: Abdominal pain Subjective: Other (Patient has improved. Abdominal pain improved. No significant nausea or vomiting. Patient tolerating clear liquid diet.) Physical Examination - Vital Signs Temperature: 97.6 F Blood Pressure: 137/61 Pulse: 53 Respirations: 20 Pulse Ox (%): 100 - Physical Exam General: Alert, In no apparent distress, Oriented x3, Cooperative HEENT: Atraumatic Neck: Supple Respiratory: Clear to auscultation bilaterally, Normal air movement Cardiovascular: Normal pulses, Regular rate/rhythm Gastrointestinal: Normal bowel sounds, Soft and benign, Non-distended, Tenderness (Minimal tenderness to the midline region below the umbilicus. Surgical scar noted.) Integumentary: No erythema, No warmth, No cyanosis Neurological: Normal speech, Normal strength at 5/5 x4 extr, Normal tone, Normal affect - Studies Laboratory Data (last 24 hrs) 12/18/18 14:27: PT 14.6 H, INR 1.25 12/18/18 14:27: WBC 6.8, Hgb 14.2, Hct 42.7, Plt Count 184 12/18/18 14:27: Sodium 141, Potassium 3.7, BUN 18, Creatinine 1.24, Glucose 106 , Magnesium 2.2, Total Bilirubin 1.0, AST 53 H, ALT 63, Alkaline Phosphatase 115 , Lipase 190 Medications List Reviewed: Yes Assessment & Plan Discharge Plan: Home Plan to discharge in: 24 Hours Physician Review Additional Text: Impression: Abdominal pain secondary to left-sided colitis complicated with UTI History of bladder cancer status post major surgery now with neobladder, CT showing bilateral hydronephrosis likely chronic Hypothyroidism Recent DVT on anti coagulation therapy Neuropathy Plan: Abdominal pain secondary to left-sided colitis complicated with UTI, likely recurrent: Will continue IV antibiotic therapy. Blood and urine cultures obtained. Urine culture positive for Gram negative rods. Will advance diet as tolerated. Patient with history of bladder cancer now with neobladder. CT showing bilateral hydronephrosis likely reflux. This likely is chronic. Patient with history of recurrent UTI. Will consult urology to further evaluate. Likely discharge in the next 24-48 hr if clinically improved. Await culture results. Patient will require colonoscopy in 6-8 weeks. Will change to inpatient status due to his complicated chronic history and recurrent UTI History of bladder cancer status post major surgery now with neobladder, CT showing bilateral hydronephrosis likely chronic: Patient with UTI. Patient with history of UTI in the past. Will discuss with urology. Hypothyroidism: Continue home medication. Recent DVT on anti coagulation therapy: Continue Eliquis as this was recently started. Neuropathy: Continue gabapentin. Time Spent Managing Pts Care (In Minutes): 55
--- NOTE | 2018-12-19 16:21 | CON ---
History Of Present Illness: This is a pleasant 53-year-old male, who had bladder cancer status post radical cystoprostatectomy about a year ago in December 2017. He had neobladder created at that time by Dr. Danny Vaughn at [facility] in [place]. The patient normally voids on his own. Does not do any intermittent catheterization. He does some valsalva to void. He says he has refused to do intermittent catheterization and does not want a catheter placed into his bladder. The patient uses condom catheter at night for drainage. He came in for colitis. He is receiving antibiotics for that now. He was recently diagnosed with a DVT in the left leg 2 weeks ago. He is now on Eliquis. He has some neuropathy for which he takes gabapentin. He had a CT scan showing a very full bladder, distended neobladder with bilateral hydronephrosis and mild ureteral dilation. Apparently, he says he gets CT scan every 3-[address] Vaughn and they have decided not to catheterize. I recommend him having a catheter to drain the bladder, but he says no, does not want to do that. His urine culture is growing gram-negative rods currently. He just wants to be treated with IV antibiotics and is adamant about no catherization_. Currently, he is on IV Cipro and Flagyl. Home Medications: Eliquis 5 mg b.i.d., levothyroxine 100 mcg daily 6 a.m., gabapentin 300 mg p.o. bedtime. Allergies: PENICILLIN CAUSES RASH, HYDROCODONE, ITCHING. Past Medical History: Bladder cancer; hypothyroidism; neuropathy; recent DVT, left lower extremity; radical cystectomy with neobladder. Psychosocial: He is . Family History: Father had cancer. Social History: Smoking status, never smoked. Alcohol use, yes. Drugs, none. Caffeine use, yes. Resides at home. Review of Systems: Pretty much unremarkable. Physical Examination: General: The patient is in no acute distress. Well nourished. No diaphoresis. Vital Signs: Temperature 97.6, pulse 63, respirations 20, BP 137/61, saturations 100% on room air. HEENT: Atraumatic, normocephalic. Neck: Supple. Respiratory: Clear. Cardiovascular: S1, S2. Gastrointestinal: Normal bowel sounds. Nondistended. Wound is healed midline , but looks like it has recently healed. Skin: No rashes. He has a condom catheter currently. Laboratory Data: Reviewed. Normal white count, normal H and H 14 and 42, platelet count 184. PT, PTT, INR normal. INR 1.25. Chemistries were normal with a creatinine of 1.24. Amylase, lipase normal. Assessment/plan: Urinary tract infection, gram-negative rods, left-sided colitis, history of bladder cancer with neobladder with poor drainage and has bilateral hydronephrosis, hypothyroidism, new deep venous thrombosis on anticoagulation, history of neuropathy. The patient just wants to void on his own, does not want a catheter, and did not refuse a one-time catheter to drain the bladder. Refused CIC. We would just treat him with antibiotics and then back to Dr. Vaughn. Dr. Vaughn sees him very frequently less than a year since his surgery. LYDIA/TI Voice ID: [id number] Report ID: [id number] KEVIN
[2018-12-19] MEDS: GABAPENTIN 300 MG CAP PO SCH (21:06)
[2018-12-19] MEDS: NACHLORIDE 0.45% 1,000 ML IV SCH (21:07)
[2018-12-20] MEDS: METRONIDAZOLE 500mg IVPB 500 MG/100 ML BAG IV SCH ×2 (01:17→09:40)
[2018-12-20] MEDS: NACHLORIDE 0.45% 1,000 ML IV SCH (01:18)
[2018-12-20] MEDS: LEVOTHYROXINE SOD 0.1 MG TAB PO SCH (05:47)
[2018-12-20] MEDS: CIPROFLOXACIN 400mg IV 400 MG/200 ML BAG IV SCH (05:48)
[2018-12-20 05:56] LABS: Absolute Lymphocytes (CBC) 1.5 K/uL (0.7-4.9); Basophils % 1.1 % (0-1.3); Hematocrit 37.8 % (39.6-49.0); Lymphocytes % 24.7 % (15.3-44.8); MPV 7.9 fL (7.6-11.3); RBC Red Blood Cell Count 4.15 M/uL (4.33-5.43)
[2018-12-20 06:11] LABS: Potassium 4.4 mmol/L (3.5-5.1)
[2018-12-20] MEDS: APIXABAN 5 MG TABLET PO SCH (09:40)
[2018-12-20] MEDS: FAMOTIDINE 20 MG TAB PO SCH (09:40)
--- NOTE | 2018-12-20 09:58 | P.DS ---
Admission Date: 12/19/18 Discharge Date: 12/20/18 Primary Care Provider: Dr. Arias; Urology-Dr. Ramirez/Roderick; Oncology-Dr. Myrick Disposition: ROUTINE DISCHARGE Discharge Condition: GOOD Reason for Admission: Abdominal pain Consultations: Urology-Dr. Ramirez Procedures: CT scan: COMPARISON: January 2018 TECHNIQUE: Computed axial tomography of the abdomen and pelvis was obtained. 100 cc Isovue-300 is administered intravenously. Oral contrast was given. All CT scans are performed using dose optimization technique as appropriate and may include automated exposure control or mA/KV adjustment according to patient size. FINDINGS: Bladder resection. Neobladder in place. Mild bilateral hydronephrosis with mild ureteral dilatation. Fatty liver Spleen, pancreas, adrenals and kidneys appear unremarkable. The appendix is normal caliber. There is no evidence of diverticulitis Wall of proximal descending colon appears thickened. Small umbilical hernia. Small ventral hernia lies couple centimeter superior containing fat IMPRESSION: Wall of proximal descending colon appears thickened. This may represent colitis, spasm or mass. Mild bilateral hydronephrosis with mild ureteral dilatation may be secondary to reflux. Bladder resection with neobladder place Medical Problem List: Abdominal pain secondary to left-sided descended colitis complicated with recurrent UTI-urine culture positive for Pseudomonas Mild bilateral hydronephrosis with mild ureteral dilatation likely secondary to reflux with History of bladder cancer status post major surgery now with neobladder Hypothyroidism Recent left lower extremity DVT currently on anti coagulation therapy Neuropathy Fatty liver Brief History of Present Illness: 53-year-old male presented to emergency room with abdominal pain. Patient with history of bladder cancer now with neobladder, hypothyroidism and recent DVT on anti coagulation therapy. Patient reported abdominal pain since yesterday. It is mainly to the lower umbilical region and to the left side. He denied any significant nausea or vomiting. He denied any changes in stool. No mention of fever. The pain persisted to the point were he came to the ER for further evaluation. In the ER patient evaluated. White count 6.8, hemoglobin 14. Sodium 141, potassium 3.7 creatinine 1.24 with a GFR of 61. Chest x-ray unremarkable. CT scan shows inflammation to the descending colon and likely colitis. Bilateral hydronephrosis with bladder absent with neobladder in place. Due to his symptoms and findings patient was admitted for observation. Patient started on IV antibiotic therapy and IV fluids in the emergency room. When I saw the patient in the ER, he appeared comfortable. Pain had improved. Patient reports recent DVT diagnosed on November 29. He is on anti coagulation therapy. Hospital Course: Patient presented with abdominal pain mainly to the left lower quadrant and lower pelvic region. Patient found to have left-sided descending colitis with UTI-urine culture positive for Pseudomonas. Patient with complicated history of recurrent UTIs and with history of bladder cancer status post major surgery now with neobladder. CT scan also revealed mild bilateral hydronephrosis with mild ureteral dilatation likely secondary to reflux. Patient was admitted for treatment. Patient did well with IV fluids and antibiotic therapy. Abdominal pain resolved. Patient now able tolerate his diet. Patient was seen and evaluated by urology. Urology has recommended intermittent urinary catheterization to prevent continued hydronephrosis and ureteral dilatation. This will also decrease his risk for recurrent infection. Patient understands this but prefers to use his condom catheter due to his current job. Patient understands the risks and benefits concerning this specific issue. Patient plans to think about this further. He will follow up with urology in 1 week to further discuss and reconsider intermittent urinary catheterizations. At discharge he will continue with Cipro 500 mg 1 pill twice daily and Flagyl 500 mg 3 times a day for 7 days. Education on prevention of UTI will be provided. Education on colitis will also be provided. Recommend to follow up with urology in 1 week to follow up this hospitalization and to further readdress intermittent urinary catheterizations. Will also recommend for the patient to follow up with GI as an outpatient in 2-4 weeks as patient will require colonoscopy in 6-8 weeks to further address. Patient should also follow up with his urologist and oncologist up in [place]. Patient with hypothyroidism. At discharge he will continue with his current medication of levothyroxine 100 mcg daily. Further adjustment can be done by his PCP. Patient with neuropathy. Patient will continue with gabapentin 300 mg at bedtime. Patient with recent diagnosis of left lower extremity DVT currently on chronic anti coagulation therapy. He will continue with Eliquis 5 mg 1 pill twice daily. Further monitoring can be done by his oncologist and/or PCP. Patient with fatty liver. Lifestyle modification education provided. This can be further addressed by GI. Vital Signs/Physical Exam: Temp Pulse Resp BP Pulse Ox 97.1 F 52 16 121/60 99 12/20/18 08:00 12/20/18 08:00 12/20/18 08:00 12/20/18 08:00 12/20/18 08:00 General: Alert, In no apparent distress, Oriented x3, Cooperative HEENT: Atraumatic Neck: Supple Respiratory: Clear to auscultation bilaterally, Normal air movement Cardiovascular: Normal pulses, Regular rate/rhythm Gastrointestinal: Normal bowel sounds, Soft and benign, Non-distended, No tenderness, No masses, No rebound, No guarding Musculoskeletal: No erythema, No tenderness, No warmth Integumentary: No erythema, No warmth, No cyanosis Neurological: Normal speech, Normal strength at 5/5 x4 extr, Normal tone Urinary: Other (Condom catheter in place) Laboratory Data at Discharge: WBC 6.1 K/uL (4.3-10.9) D 12/20/18 05:26 Hgb 12.8 g/dL (13.6-17.9) L 12/20/18 05:26 Hct 37.8 % (39.6-49.0) L 12/20/18 05:26 Plt Count 167 K/uL (152-406) 12/20/18 05:26 PT 14.6 SECONDS (9.5-12.5) H 12/18/18 14:27 INR 1.25 12/18/18 14:27 Sodium 143 mmol/L (136-145) 12/20/18 05:26 Potassium 4.4 mmol/L (3.5-5.1) 12/20/18 05:26 BUN 13 mg/dL (7-18) 12/20/18 05:26 Creatinine 1.26 mg/dL (0.55-1.3) 12/20/18 05:26 Glucose 100 mg/dL (74-106) 12/20/18 05:26 Magnesium 2.0 mg/dL (1.8-2.4) 12/20/18 05:26 Total Bilirubin 1.0 mg/dL (0.2-1.0) 12/18/18 14:27 AST 53 U/L (15-37) H 12/18/18 14:27 ALT 63 U/L (12-78) 12/18/18 14:27 Alkaline Phosphatase 115 U/L (45-117) 12/18/18 14:27 Lipase 190 U/L (73-393) 12/18/18 14:27 Home Medications: Apixaban [Eliquis] 5 mg PO BID 12/18/18 Gabapentin 300 mg PO BEDTIME 12/18/18 Levothyroxine [Synthroid*] 100 mcg PO [id number] 12/18/18 Ciprofloxacin HCl [Cipro 500 MG Tablet] 500 mg PO BID #14 tab 12/20/18 metroNIDAZOLE [Flagyl] 500 mg PO Q8H #21 tablet 12/20/18 New Medications: Ciprofloxacin HCl [Cipro 500 MG Tablet] 500 mg PO BID #14 tab metroNIDAZOLE [Flagyl] 500 mg PO Q8H #21 tablet Patient Discharge Instructions: 1. Follow up with his PCP in 1 week to follow up this hospitalization. 2. Patient presented with abdominal pain mainly to the left lower quadrant and lower pelvic region. Patient found to have left- sided descending colitis with UTI-urine culture positive for Pseudomonas. Patient with complicated history of recurrent UTIs and with history of bladder cancer status post major surgery now with neobladder. CT scan also revealed mild bilateral hydronephrosis with mild ureteral dilatation likely secondary to reflux. Patient was admitted for treatment. Patient did well with IV fluids and antibiotic therapy. Abdominal pain resolved. Patient now able tolerate his diet. Patient was seen and evaluated by urology. Urology has recommended intermittent urinary catheterization to prevent continued hydronephrosis and ureteral dilatation. This will also decrease his risk for recurrent infection. Patient understands this but prefers to use his condom catheter due to his current job. Patient understands the risks and benefits concerning this specific issue. Patient plans to think about this further. He will follow up with urology in 1 week to further discuss and reconsider intermittent urinary catheterizations. At discharge he will continue with Cipro 500 mg 1 pill twice daily and Flagyl 500 mg 3 times a day for 7 days. Education on prevention of UTI will be provided. Education on colitis will also be provided. Recommend to follow up with urology in 1 week to follow up this hospitalization and to further readdress intermittent urinary catheterizations. Will also recommend for the patient to follow up with GI as an outpatient in 2-4 weeks as patient will require colonoscopy in 6-8 weeks to further address. Patient should also follow up with his urologist and oncologist up in [place]. 3. Patient with hypothyroidism. At discharge he will continue with his current medication of levothyroxine 100 mcg daily. Further adjustment can be done by his PCP. 4. Patient with neuropathy. Patient will continue with gabapentin 300 mg at bedtime. 5. Patient with recent diagnosis of left lower extremity DVT currently on chronic anti coagulation therapy. He will continue with Eliquis 5 mg 1 pill twice daily. Further monitoring can be done by his oncologist and/or PCP. 6. Patient with fatty liver. Lifestyle modification education provided. This can be further addressed by GI. Diet: Regular Activity: Ad sumit Time spent managing pt's care (in minutes): 55
[2018-12-20 10:23] VITALS: O2SAT 96
[2018-12-20 12:06] VITALS: BP 144/76; TEMP 97.5
== END 2018-12-20 13:19 | disposition home or self-care (01) | DRG 690 ==
LOC: ER 13:57 → ERHOLD 18:25 → 2ND 19:43 → OBSVTOIN 12-19 12:34
PROVIDERS: ADMIT Family Medicine; ATTEND Family Medicine
DX: N39.0 Urinary tract infection, site not specified (principal); K52.9 Noninfective gastroenteritis and colitis, unspecified; N13.30 Unspecified hydronephrosis; B96.5 Pseudomonas (aeruginosa) (mallei) (pseudomallei) as the cause of diseases classified elsewhere; E03.9 Hypothyroidism, unspecified; G62.9 Polyneuropathy, unspecified; K76.0 Fatty (change of) liver, not elsewhere classified; Z79.01 Long term (current) use of anticoagulants; Z86.718 Personal history of other venous thrombosis and embolism; Z85.51 Personal history of malignant neoplasm of bladder; Z90.6 Acquired absence of other parts of urinary tract; Z90.79 Acquired absence of other genital organ(s); Z88.5 Allergy status to narcotic agent; Z88.0 Allergy status to penicillin
CPT/HCPCS: 36415; 71045; 74177; 80048; 80076; 81003; 83690; 83735; 83880; 84145; 84484; 85025; 85610; 87040; 87077; 87086; 87088; 87186; 93005; 96361; 96365; 96367; 96375; 99285; G0378; J0696; J0744; J2270; J2405; J3010; J7030; Q9967

== ENCOUNTER 2019-01-25 10:15 | Observation (INO) | payer BC ==
--- OUTSIDE RECORDS SUMMARY | 2019-01-25 10:23 | XMS REPORT | Clinical Summary ---
:1965 Author Organization [facility] Address [address] [place] [address] Care Team Providers Name Role Phone Jhonny Da Silva Primary Care Provider Allergies No Known Allergies Medications Medication Sig Dispensed Refills Start Date End Date Status levothyroxine Take 100 mcg by 0 Active (SYNTHROID, mouth Every morning LEVOTHROID) 100 MCG on an empty stomach. tablet diazePAM (VALIUM) 5 Take 5 mg by mouth 0 Active MG tablet as needed for Anxiety. solifenacin Take 10 mg by mouth 0 Active (VESICARE) 5 MG daily. tablet ondansetron Take by mouth every 0 Active (ZOFRAN) 8 MG 8 (eight) hours as tablet needed for Nausea. promethazine Take 12.5 mg by 0 Active (PHENERGAN) 12.5 MG mouth every 6 (six) tablet hours as needed for Nausea. enoxaparin Inject 0.4 mLs (40 12 mL 0 01/08/2018 (LOVENOX) 40 mg/0.4 mg total) 8 mL Syrg subcutaneously daily for 30 days. Active Problems Problem Noted Date Bladder cancer 01/02/2018 Malignant neoplasm of urinary bladder 07/25/2017 Encounters Date Type Specialty Care Team Description 11/14/2018 Hospital Encounter Computed Tomography Fernandez Myrick Malignant neoplasm MD Reg of urinary bladder, 1, [facility] Manuel unspecified site Ct Room ([facility]) 11/14/2018 Hospital Encounter Computed Tomography Fernandez Myrick Malignant neoplasm MD Reg of urinary bladder, 1, [facility] Manuel unspecified site Ct Room ([facility]) 11/03/2018 Outside Orders Central Scheduling Fernandez Myrick Malignant neoplasm MD Reg of urinary bladder, unspecified site ([facility]) (Primary Dx) 01/25/[address] after 01/24/2018 Social History Tobacco Use Types Packs/Day Years Used Date Never Smoker Smokeless Tobacco: Never Used Alcohol Use Drinks/Week oz/Week Comments Yes "very seldom" Sex Assigned at Date Recorded Not on file Job Start Date Occupation Industry Not on file Not on file Not on file Travel History Travel Start Travel End No recent travel history available. Last Filed Vital Signs Not on file Plan of Treatment Not on file Implants Implanted Type Area Supervisor [employer] Device Shelf Model / Serial Identifier Expiration / Lot Date Cath Exp Silv Soak Professor Of Business 12.5cmx [id number] - [id number] Pain RAKEL-[place] 03/08/2020 [id number] / Implanted: Qty: 1 on 01/02/2018 by Danny Vaughn MD Mgmt/Stim / ulator [id number] Cath Exp Silv Soak Professor Of Business 12.5cmx [id number] - [id number] Pain RAKEL-M[place]ISON 12/15/2019 [id number] / Implanted: Qty: 1 on 01/02/2018 by Danny Vaughn MD Mgmt/Stim / ulator [id number] Stent,Uret Radar Engineering Teacher Diversion 8.4fr Left - [id number] Uro Stent [employer] UROLOGICAL 08/08/2018 [id number] / Implanted: Qty: 1 on 01/02/2018 by Danny Vaughn MD / [id number] Stent Radar Engineering Teacher Uret [id number] R [id number] - [id number] Uro Stent COOK:UROLOGY 08/08/2018 [id number] / Implanted: Qty: 1 on 01/02/2018 by Danny Vaughn MD / [id number] Procedures Procedure Name Priority Date/Time Associated Comments Diagnosis CT ABDOMEN/PELVIS WITH Routine 11/14/2018 4:35 Malignant neoplasm Results for this IV CONTRAST PM CDT of urinary bladder, procedure are in unspecified site the results ([facility]) section. CT CHEST WITH IV Routine 11/14/2018 [...] 10/20/2018 10:00 REPORT - SCAN AM CDT after 01/24/[address] Abdomen/Pelvis with IV Contrast (11/14/2018 4:35 PM CDT) Specimen Narrative Performed At FINAL REPORT [facility] CT CHEST, ABDOMEN, AND PELVIS WITH CONTRAST HISTORY:Malignant neoplasm of urinary bladder, bladder cancer status post NAC and radical cystectomy, RPLND and FlfgsdU88.9 COMPARISON:CT of the chest, abdomen and pelvis [...] 09:03:01 Performing Organization Address City/State/Zipcode Phone Number [facility] CT Chest with IV Contrast (11/14/2018 4:35 PM CDT) Specimen Narrative Performed At FINAL REPORT [facility] CT CHEST, ABDOMEN, AND PELVIS WITH CONTRAST HISTORY:Malignant neoplasm of urinary bladder, bladder cancer status post NAC and radical cystectomy, RPLND and NfjljfX07.9 COMPARISON:CT of the chest, abdomen and pelvis [...] 09:03:01 Performing Organization Address City/State/Zipcode Phone Number [facility] POC-Creatinine (11/14/2018 4:27 PM CDT) POC-Creatinine 1.3Comment: TESTED AT [facility] 0.6 - 1.3 mg/dL [facility] [address] [facility] [address] POC-EGFR 58 mL/min/1.73M2 [facility] Specimen Blood Performing Organization Address [facility] Phone Number [facility] [address] [place] [address] [phone] CENTER INTRAOPERATIVE PATH REPORT - SCAN (10/20/2018 10:00 AM CDT)Only the most recent of4 resultswithin the time period is included. Narrative Performed At after 01/24/2018 Insurance Payer Benefit Plan / Subscriber ID Type Phone Address Group BLUE CROSS/BLUE BCBS PPO POS EPO xxxxxxxxxxxx PPO [phone] [address] [place] [address] REG (Home) [place] [address] Advance Directives For more information, please contact:[address] [phone] Code Status Date Activated Date Inactivated Comments Full Code 01/02/2018 4:21 PM 01/07/2018 7:49 PM This code status was determined by: Patient Full Code 08/16/2017 2:09 PM 08/16/2017 4:18 PM This code status was determined by: Patient
--- NOTE | 2019-01-25 10:51 | RAD REPORT ---
EXAM DESCRIPTION: CT - Ct Stroke Brain Wo Cont - 01/25/2019 10:42 am CLINICAL HISTORY: VISUAL DISTURBANCES Headache, drowsiness, CVA COMPARISON: No comparisons TECHNIQUE: All CT scans are performed using dose optimization technique as appropriate and may inclu de automated exposure control or mA/KV adjustment according to patient size. FINDINGS: No intracranial hemorrhage, hydrocephalus or extra-axial fluid collection.No areas of brai n edema or evidence of midline shift. The paranasal sinuses and mastoids are clear. The calvarium is intact. IMPRESSION: No acute intracranial abnormality. The findings were discussed with Dr. Godfrey in the ER on 01/25/2019 at 10:42 a.m. by telephone.
--- NOTE | 2019-01-25 11:03 | RAD REPORT ---
EXAM DESCRIPTION: Rasheed Single View01/25/2019 10:53 am CLINICAL HISTORY: Chest pain COMPARISON: December 2018 FINDINGS: The lungs appear clear of acute infiltrate. The heart is normal size A central venous catheter remains place IMPRESSION: No acute abnormalities displayed
[2019-01-25 11:07] LABS: Absolute Lymphocytes (CBC) 1.4 K/uL (0.7-4.9); Eosinophils % 1.7 % (0-4.4); Hematocrit 39.7 % (39.6-49.0); Lymphocytes % 25.3 % (15.3-44.8); MPV 7.6 fL (7.6-11.3); RBC Red Blood Cell Count 4.42 M/uL (4.33-5.43)
--- NOTE | 2019-01-25 11:08 | ER ---
Nurse's Notes [facility] Name: Diaz Sadler Age: 53 yrs Sex: Male : 1965 Arrival Date: 01/25/2019 Time: 10:19 Bed 4 Private MD: Kennedy Arias Diagnosis: Transient cerebral ischemic attacks and related syndromes Presentation: 01/25 10:23 Presenting complaint: Loss of vision in left eye for approx 2 minutes, then blurry hb vision in right eye that stated at 0800 today. Sent by product representative Dr. Finley. On Eliquis x 2 months for DVT in left leg. Transition of care: patient was not received from another setting of care. Onset of symptoms was January 25, 2019 at 08:00. Risk Assessment: Do you want to hurt yourself or someone else? Patient reports no desire to harm self or others. Care prior to arrival: None. 10:23 Method Of Arrival: Ambulatory hb 10:23 Acuity: TERESA 3 hb Historical: - Allergies: 10:27 Codeine; itch; hb - Home Meds: 10:27 Synthroid Oral [Active]; unknown neuropathy med [Active]; Eliquis oral oral [Active]; hb - PMHx: 10:27 Bladder CA; Hypothyroidism; neuropathy; hb - Immunization history:: Adult Immunizations up to date. - Social history:: Smoking status: Patient/guardian denies using tobacco. - Ebola Screening: : No symptoms or risks identified at this time. Screenin:33 Abuse screen: Denies threats or abuse. Denies injuries from another. Nutritional aj screening: No deficits noted. Tuberculosis screening: No symptoms or risk factors identified. Fall Risk None identified. 10:59 Patient has been NPO before screening. The patient is alert, able to follow commands. aj The patient does not exhibit slurred or garbled speech The patient is not exhibiting difficulty speaking. The patient does not exhibit difficulty understanding words. The patient is able to swallow own secretions with no drooling or need for suction. Patient tolerated one teaspoon of water. No drooling, immediate coughing, gurgling, or clearing of the throat was noted. The patient tolerated 90mL of water. No drooling, immediate coughing, gurgling, or clearing of the throat was noted. The patient passed the bedside swallow screening. Oral medications may be given as ordered. Contact Physician for further diet orders. Assessment: 10:33 General: Appears in no apparent distress. comfortable, Behavior is calm, cooperative, aj appropriate for age. Pain: Denies pain. Neuro: Level of Consciousness is awake, alert, obeys commands, Oriented to person, place, time, situation, Appropriate for age Stations Superintendent are equal bilaterally Moves all extremities. Full function Gait is steady, Speech is normal, Facial symmetry appears normal, Intact Reports blurred vision diplopia. Cardiovascular: No deficits noted. Respiratory: Airway is patent Respiratory effort is even, unlabored, Respiratory pattern is regular, symmetrical. Derm: Skin is intact, is healthy with good turgor, Skin is pink, warm \T\ dry. normal. 12:51 Reassessment: Patient appears in no apparent distress at this time. No changes from aj previously documented assessment. Patient and/or family updated on plan of care and expected duration. Pain level reassessed. Patient is alert, oriented x 3, equal unlabored respirations, skin warm/dry/pink. 15:34 Reassessment: Patient appears in no apparent distress at this time. No changes from aj previously documented assessment. Patient and/or family updated on plan of care and expected duration. Pain level reassessed. Patient is alert, oriented x 3, equal unlabored respirations, skin warm/dry/pink. Patient denies pain at this time. Patient states feeling better. Vital Signs: 10:26 BP 149 / 88; Pulse 75; Resp 16; Temp 97.9; Pulse Ox 100% on R/A; Weight 89.81 kg; hb Height 5 ft. 11 in. (180.34 cm); Pain 0/10; 12:51 BP 115 / 77; Pulse 70; Resp 16; Pulse Ox 100% on R/A; aj 14:23 BP 123 / 79; Pulse 50; Resp 20; Pulse Ox 97% on R/A; aj 15:34 BP 99 / 57; Pulse 60; Resp 16; Pulse Ox 99% on R/A; aj 10:26 Body Mass Index 27.62 (89.81 kg, 180.34 cm) hb NIH Stroke Scale Scores: 10:47 NIHSS Score: 1 aj 11:13 NIHSS Score: 0 gs ED Course: 10:19 Patient arrived in ED. ag5 10:19 Kennedy Arias MD is Private Physician. ag5 10:26 Triage completed. hb 10:26 Arm band placed on. hb 10:28 Lashay Hernández, RN is Primary Nurse. aj 10:31 Hola Godfrey MD is Attending Physician. gs 10:33 Patient has correct armband on for positive identification. aj 10:42 CT Stroke Brain w/o Contrast In Process Unspecified. EDMS 10:49 X-ray completed. Portable x-ray completed in exam room. Patient tolerated procedure kw well. 10:50 Stroke CXR 1 View In Process Unspecified. EDMS 10:54 EKG done, by fresh foods technician. reviewed by Hola Godfrey MD. tc 10:56 Initial lab(s) drawn, by nj, sent to lab. Inserted saline lock: 20 gauge in left jb1 antecubital area, using aseptic technique. Blood collected. 11:07 Latha De La Cruz MD is Hospitalizing Provider. gs 14:23 No provider procedures requiring assistance completed. aj 16:09 Report given to Maxime LEE. aj 16:09 Patient admitted, IV remains in place. intact. aj Administered Medications: 12:52 Drug: Tylenol 1000 mg Route: PO; jhony Outcome: 11:07 Decision to Hospitalize by Provider. gs 16:10 Admitted to Med/surg accompanied by tech, via wheelchair, room 201, Report called to jhony Swartz RN 16:10 Condition: good 16:10 Instructed on the need for admit. 16:51 Patient left the ED. jhony NIH Stroke Scale - NIH Stroke Score Date: 01/25/2019 Time: 10:47 Total Score = 1 1a. Level of Consciousness (LOC) - 0(Alert) 1b. Level of Consciousness (LOC) (Year \T\ Age) - 0(Both) 1c. LOC Commands (Open \T\ Closes Eyes/Ambulatory Technologist) - 0(Both) 2. Best Gaze (Lateral Gaze Paresis) - 0(Normal) 3. Visual Field Loss - 1(Partial hemianopia) 4. Facial Palsy - 0(Normal) 5a. Left Arm: Motor (10-second hold) - 0(No drift) 5b. Right Arm: Motor (10-second hold) - 0(No drift) 6a. Left Leg: Motor (5-second hold - always test supine) - 0(No drift) 6b. Right Leg: Motor (5-second hold - always test supine) - 0(No drift) 7. Limb Ataxia (finger/nose \T\ heel/rodríguez - test with eyes open) - 0(Absent) 8. Sensory Loss (pinprick arms/legs/face) - 0(Normal) 9. Best Language: Aphasia (description/naming/reading) - 0(No aphasia) 10. Dysarthria (speech clarity - read or repeat words) - 0(Normal) 11. Extinction and Inattention (visual/tactile/auditory/spatial/personal) - 0(No abnormality) Initials: jhony NIH Stroke Scale - NIH Stroke Score Date: 01/25/2019 Time: 11:13 Total Score = 0 1a. Level of Consciousness (LOC) - 0(Alert) 1b. Level of Consciousness (LOC) (Year \T\ Age) - 0(Both) 1c. LOC Commands (Open \T\ Closes Eyes/Ambulatory Technologist) - 0(Both) 2. Best Gaze (Lateral Gaze Paresis) - 0(Normal) 3. Visual Field Loss - 0(No visual loss) 4. Facial Palsy - 0(Normal) 5a. Left Arm: Motor (10-second hold) - 0(No drift) 5b. Right Arm: Motor (10-second hold) - 0(No drift) 6a. Left Leg: Motor (5-second hold - always test supine) - 0(No drift) 6b. Right Leg: Motor (5-second hold - always test supine) - 0(No drift) 7. Limb Ataxia (finger/nose \T\ heel/rodríguez - test with eyes open) - 0(Absent) 8. Sensory Loss (pinprick arms/legs/face) - 0(Normal) 9. Best Language: Aphasia (description/naming/reading) - 0(No aphasia) 10. Dysarthria (speech clarity - read or repeat words) - 0(Normal) 11. Extinction and Inattention (visual/tactile/auditory/spatial/personal) - 0(No abnormality) Initials: Signatures: Dispatcher [employer] Dylan Chase jb1 Lashay Hernández, RN RN Karena Uriostegui Tiffany, ornamental machine operator EKG Ttc Yohana Fischer RN RN hb Starr, Gregory, MD MD gs Gaskin, Ajare ag5
--- NOTE | 2019-01-25 11:09 | EDPHYS ---
Physician Documentation [facility] Name: Diaz Sadler Age: 53 yrs Sex: Male : 1965 Arrival Date: 01/25/2019 Time: 10:19 Bed 4 Private MD: Kennedy Arias ED Physician Hola Godfrey HPI: 01/25 11:13 This 53 yrs old Male presents to ER via Ambulatory with complaints of Vision gs Problem, Loss Of Vision, Blurred Vision. 11:13 The patient presents to the emergency department with a vision problem, left eye gs blindness. Onset: The symptoms/episode began/occurred today, at 08:30. Context: occurred at home. Associated signs and symptoms: Pertinent negatives: altered mental status, paresthesias, weakness. Severity of symptoms: At their worst the symptoms were severe in the emergency department the symptoms have resolved. Current symptoms: Currently, the patient is not experiencing any symptoms. The patient has not experienced similar symptoms in the past. The patient has been recently seen by a physician: an opthalmologist. Historical: - Allergies: 10:27 Codeine; itch; hb - Home Meds: 10:27 Synthroid Oral [Active]; unknown neuropathy med [Active]; Eliquis oral oral [Active]; hb - PMHx: 10:27 Bladder CA; Hypothyroidism; neuropathy; hb - Immunization history:: Adult Immunizations up to date. - Social history:: Smoking status: Patient/guardian denies using tobacco. - Ebola Screening: : No symptoms or risks identified at this time. ROS: 11:13 All other systems are negative. gs Exam: 11:13 Head/Face: Normocephalic, atraumatic. Eyes: Pupils equal round and reactive to light, gs extra-ocular motions intact. Lids and lashes normal. Conjunctiva and sclera are non-icteric and not injected. Cornea within normal limits. Periorbital areas with no swelling, redness, or edema. ENT: Nares patent. No nasal discharge, no septal abnormalities noted. Tympanic membranes are normal and external auditory canals are clear. Oropharynx with no redness, swelling, or masses, exudates, or evidence of obstruction, uvula midline. Mucous membranes moist. Neck: Trachea midline, no thyromegaly or masses palpated, and no cervical lymphadenopathy. Supple, full range of motion without nuchal rigidity, or vertebral point tenderness. No Meningismus. Chest/axilla: Normal chest wall appearance and motion. Nontender with no deformity. No lesions are appreciated. Cardiovascular: Regular rate and rhythm with a normal S1 and S2. No gallops, murmurs, or rubs. Normal PMI, no JVD. No pulse deficits. Respiratory: Lungs have equal breath sounds bilaterally, clear to auscultation and percussion. No rales, rhonchi or wheezes noted. No increased work of breathing, no retractions or nasal flaring. Abdomen/GI: Soft, non-tender, with normal bowel sounds. No distension or tympany. No guarding or rebound. No evidence of tenderness throughout. Back: No spinal tenderness. No costovertebral tenderness. Full range of motion. Skin: Warm, dry with normal turgor. Normal color with no rashes, no lesions, and no evidence of cellulitis. MS/ Extremity: Pulses equal, no cyanosis. Neurovascular intact. Full, normal range of motion. 11:13 Constitutional: The patient appears alert, awake. 11:13 ECG was reviewed by the Attending Physician. 11:13 Neuro: Orientation: is normal, Mentation: is normal, Memory: is normal, Cranial nerves: CN II- XII are normal as tested, Cerebellar function: normal finger to nose testing, Motor: moves all fours, strength is 5/5 in all extremities, Sensation: no obvious gross deficits. Vital Signs: 10:26 BP 149 / 88; Pulse 75; Resp 16; Temp 97.9; Pulse Ox 100% on R/A; Weight 89.81 kg; hb Height 5 ft. 11 in. (180.34 cm); Pain 0/10; 12:51 BP 115 / 77; Pulse 70; Resp 16; Pulse Ox 100% on R/A; aj 14:23 BP 123 / 79; Pulse 50; Resp 20; Pulse Ox 97% on R/A; aj 15:34 BP 99 / 57; Pulse 60; Resp 16; Pulse Ox 99% on R/A; aj 10:26 Body Mass Index 27.62 (89.81 kg, 180.34 cm) NIH Stroke Scale Scores: 10:47 NIHSS Score: 1 aj 11:13 NIHSS Score: 0 MDM: 10:31 Patient medically screened. 11:20 Data reviewed: vital signs, nurses notes. Counseling: I had a detailed discussion with the patient and/or guardian regarding: the historical points, exam findings, and any diagnostic results supporting the discharge/admit diagnosis, lab results, the need for further work-up and treatment in the hospital. Response to treatment: the patient's symptoms have resolved after treatment. Physician consultation: Constantine Segovia MD. 11:26 Special discussion: no tpa nihss 0, on xarelto. ED course: ddx cva,tia,ich,sah. 01/25 10:36 Order name: Basic Metabolic Panel; Complete Time: 11:25 01/25 10:36 Order name: CBC with Diff; Complete Time: 11: 01/25 10:36 Order name: Protime (+inr); Complete Time: 11: 01/25 10:36 Order name: CT Stroke Brain w/o Contrast; Complete Time: 11: 01/25 10:36 Order name: Stroke CXR 1 View; Complete Time: 11: 01/25 10:36 Order name: EKG; Complete Time: 10:37 01/25 10:36 Order name: Accucheck; Complete Time: 10: 01/25 10:36 Order name: Cardiac monitoring; Complete Time: 10: 01/25 10:36 Order name: EKG - Nurse/Tech; Complete Time: : 01/25 10:36 Order name: IV Saline Lock; Complete Time: 10: 01/25 10:36 Order name: Labs collected and sent; Complete Time: 10: 01/25 10:36 Order name: NPO; Complete Time: 10: 01/25 10:36 Order name: O2 Per Protocol; Complete Time: : 01/25 10:36 Order name: O2 Sat Monitoring; Complete Time: : 01/25 10:36 Order name: Stroke Swallow Screen; Complete Time: 11:37 EC:13 Rate is 68 beats/min. Rhythm is regular. OH interval is normal. QRS interval is gs prolonged. T waves are Normal. No ST changes noted. Clinical impression: Abnormal EKG without significant change. Interpreted by me. Administered Medications: 12:52 Drug: Tylenol 1000 mg Route: PO; aj Disposition: 01/25/19 11:07 Hospitalization ordered by Latha De La Cruz for Observation. Preliminary diagnosis is Transient cerebral ischemic attacks and related syndromes. - Bed requested for Telemetry/MedSurg (observation). - Status is Observation. aj - Condition is Stable. - Problem is new. - Symptoms have improved. UTI on Admission? No NIH Stroke Scale - NIH Stroke Score Date: 01/25/2019 Time: 10:47 Total Score = 1 1a. Level of Consciousness (LOC) - 0(Alert) 1b. Level of Consciousness (LOC) (Year \T\ Age) - 0(Both) 1c. LOC Commands (Open \T\ Closes Eyes/Certified Nurse Midwife) - 0(Both) 2. Best Gaze (Lateral Gaze Paresis) - 0(Normal) 3. Visual Field Loss - 1(Partial hemianopia) 4. Facial Palsy - 0(Normal) 5a. Left Arm: Motor (10-second hold) - 0(No drift) 5b. Right Arm: Motor (10-second hold) - 0(No drift) 6a. Left Leg: Motor (5-second hold - always test supine) - 0(No drift) 6b. Right Leg: Motor (5-second hold - always test supine) - 0(No drift) 7. Limb Ataxia (finger/nose \T\ heel/rodríguez - test with eyes open) - 0(Absent) 8. Sensory Loss (pinprick arms/legs/face) - 0(Normal) 9. Best Language: Aphasia (description/naming/reading) - 0(No aphasia) 10. Dysarthria (speech clarity - read or repeat words) - 0(Normal) 11. Extinction and Inattention (visual/tactile/auditory/spatial/personal) - 0(No abnormality) Initials: NIH Stroke Scale - NIH Stroke Score Date: 01/25/2019 Time: 11:13 Total Score = 0 1a. Level of Consciousness (LOC) - 0(Alert) 1b. Level of Consciousness (LOC) (Year \T\ Age) - 0(Both) 1c. LOC Commands (Open \T\ Closes Eyes/Certified Nurse Midwife) - 0(Both) 2. Best Gaze (Lateral Gaze Paresis) - 0(Normal) 3. Visual Field Loss - 0(No visual loss) 4. Facial Palsy - 0(Normal) 5a. Left Arm: Motor (10-second hold) - 0(No drift) 5b. Right Arm: Motor (10-second hold) - 0(No drift) 6a. Left Leg: Motor (5-second hold - always test supine) - 0(No drift) 6b. Right Leg: Motor (5-second hold - always test supine) - 0(No drift) 7. Limb Ataxia (finger/nose \T\ heel/rodríguez - test with eyes open) - 0(Absent) 8. Sensory Loss (pinprick arms/legs/face) - 0(Normal) 9. Best Language: Aphasia (description/naming/reading) - 0(No aphasia) 10. Dysarthria (speech clarity - read or repeat words) - 0(Normal) 11. Extinction and Inattention (visual/tactile/auditory/spatial/personal) - 0(No abnormality) Initials: Signatures: Dispatcher [employer] EDMS Brandie Acuna RN RN dw Myers, Amanda, RN RN aj Baxter, Heather, RN RN hb Starr, Gregory, MD MD gs Botello, Elizabeth eb Corrections: (The following items were deleted from the chart) 13:42 11:07 Hospitalization Ordered by Latha De La Cruz MD for Observation. Preliminary dw diagnosis is Transient cerebral ischemic attacks and related syndromes. Bed requested for Telemetry/MedSurg (observation). Status is Observation. Condition is Stable. Problem is new. Symptoms have improved. UTI on Admission? No. gs 13:54 13:42 01/25/2019 11:07 Hospitalization Ordered by Latha De La Cruz MD for eb Observation. Preliminary diagnosis is Transient cerebral ischemic attacks and related syndromes. Bed requested for Telemetry/MedSurg (observation). Status is Observation. Condition is Stable. Problem is new. Symptoms have improved. UTI on Admission? No. dw 16:02 13:54 01/25/2019 11:07 Hospitalization Ordered by Latha De La Cruz MD for eb Observation. Preliminary diagnosis is Transient cerebral ischemic attacks and related syndromes. Bed requested for Telemetry/MedSurg (observation). Status is Observation. Condition is Stable. Problem is new. Symptoms have improved. UTI on Admission? No. eb 16:51 16:02 01/25/2019 11:07 Hospitalization Ordered by Latha De La Cruz MD for aj Observation. Preliminary diagnosis is Transient cerebral ischemic attacks and related syndromes. Bed requested for Telemetry/MedSurg (observation). Status is Observation. Condition is Stable. Problem is new. Symptoms have improved. UTI on Admission? No. eb
[2019-01-25 11:12] LABS: Protime INR 1.29
[2019-01-25 11:20] LABS: Potassium 3.6 mmol/L (3.5-5.1)
[2019-01-25] MEDS ORDERED: ACETAMINOPHEN 500 MG TAB ONE (13:04)
--- NOTE | 2019-01-25 14:51 | EKG ---
Test Date: 2019-01-25 Test Time: 10:50:36 Staff Scientist: [place] MEASUREMENT RESULTS: Intervals: Rate: 68 NH: 170 QRSD: 116 QT: 398 QTc: 423 [place]: P: 48 NH: 170 QRS: -12 T: 43 INTERPRETIVE STATEMENTS: Normal sinus rhythm with sinus arrhythmia Normal ECG Compared to ECG 12/18/2018 14:38:48 No significant changes Electronically Signed On 01-25-19 14:51:16 CDT by Reji Mcclendon
[2019-01-25] MEDS: NA CHLORIDE 0.9% 1,000 ML IV SCH (16:08)
[2019-01-25] MEDS ORDERED: ONDANSETRON 4 MG/2 ML VIAL IV PRN (16:08)
[2019-01-25 16:35] VITALS: BMI 27.6
[2019-01-25 18:13] VITALS: O2SAT 98
--- NOTE | 2019-01-25 20:26 | RAD REPORT ---
EXAM DESCRIPTION: MRI - Brain W/Wo Cont - 01/25/2019 8:04 pm CLINICAL HISTORY: TIA COMPARISON: January 25, [address] TECHNIQUE: Axial, sagittal, and coronal magnetic images of the brain were obtained. 15 cc MultiHance administered intravenously FINDINGS: No significant abnormal signal within the brain is noted. The ventricles are normal in steven iber. Diffusion-weighted sequences do not demonstrate evidence of an acute infarction. No abnormal enhancement within the brain is seen. An extra-axial fluid collection is not noted. Fluid within the sinuses/mastoids is not seen IMPRESSION: No acute abnormality displayed
--- NOTE | 2019-01-25 20:28 | RAD REPORT ---
EXAM DESCRIPTION: MRI - MRA Neck W/Wo Cont - 01/25/2019 8:04 pm CLINICAL HISTORY: TIA COMPARISON: None. TECHNIQUE: Magnetic resonance angiogram of the neck was performed. 19 cc MultiHance was administered intravenously. 3D MIPS reconstruction performed FINDINGS: The common carotid, internal carotid and external carotid arteries do not demonstrate a si gnificant stenosis. An aneurysm is not seen. The vertebral arteries are codominant without visualization of an abnormality. IMPRESSION: Unremarkable MRA neck NASCET criteria used. Mild 0-49% stenosis Moderate 50-69% stenosis Severe 70-99% stenosis
--- NOTE | 2019-01-25 20:38 | RAD REPORT ---
EXAM DESCRIPTION: MRI - MRA Head Wo Cont - 01/25/2019 8:02 pm CLINICAL HISTORY: tia COMPARISON: None. TECHNIQUE: Magnetic resonance angiogram was performed. 3D MIPS reconstruction performed FINDINGS: The anterior cerebral, right middle cerebral, posterior cerebral, distal internal carotid and basilar arteries do not demonstrate a significant stenosis. 2 millimeter bulge of the M2 segment of the left middle cerebral artery An aneurysm is not displayed. IMPRESSION: 2 millimeter bulge of the M2 segment of the left middle cerebral artery. Most likely thi s represents the origin of an arterial branch rather than an aneurysm. As a precaution it is recommen ded that the patient have a followup MRA of the brain in 6 months for re-evaluation
--- NOTE | 2019-01-25 20:46 | RAD REPORT ---
EXAM DESCRIPTION: USCarotid Artery Bilateral01/25/2019 5:49 pm CLINICAL HISTORY: tia COMPARISON: None FINDINGS: The velocity of the right internal carotid artery equals 87 cm/sec. The right ICA/CCA rati o 1 The velocity of the left internal carotid artery equals 96 cm/sec. The left ICA/CCA ratio 1.1 Plaque is not seen within the carotid arteries. The vertebral arteries demonstrate antegrade flow IMPRESSION: Unremarkable exam NASCET criteria used. Mild 0-49% stenosis Moderate 50-69% stenosis Severe 70-99% stenosis
[2019-01-25] MEDS: APIXABAN 5 MG TABLET PO SCH (20:53)
[2019-01-25] MEDS ORDERED: GABAPENTIN 300 MG CAP PO SCH (21:00)
[2019-01-25] MEDS ORDERED: HOME MED 1 EA UNK (Apixaban [Eliquis] 5 MG) PO SCH (21:00)
[2019-01-25] MEDS ORDERED: ATORVASTATIN 80 MG TAB PO SCH (21:00)
--- NOTE | 2019-01-25 21:14 | P.HP ---
Certification for Inpatient Patient admitted to: Observation Practitioner: I am a practitioner with admitting privileges, knowledge of patient current condition, hospital course, and medical plan of care. Services: Services provided to patient in accordance with Admission requirements found in Title 42 Section 412.3 of the Code of Federal Regulations Patient History Date of Service: 01/25/19 Reason for admission: Left eye vision loss History of Present Illness: This is a 53 yr old male with a hx of stage IV bladder cancer in remission, a hx of DVT in 11/2018, currently on Eliquis who presented with complaints of left eye vision loss that lasted for 3-4 minutes this morning. The vision restored itself within 4 minutes. Patient went to his ophthalmology doctor to get checkup. Per patient and family, there was no abnormalities noted on his eye exams. No retinal detachment, no retinal vein or artery occlusion was noted. He was recommended to go to the ED for further evaluation. He was then brought in to our ER. His symptoms had resolved but he was complaining of some blurry vision in both eyes. He was also complaining of a mild occipital headache. His vital signs were stable, labs were unremarkable and CT of the head was normal. At the time of my exam, he was AAOx3 and in no acute distress. His symptoms had completely resolved. He denies any cp, sob, speech changes, dizziness, pre-syncope/syncope, GI or complaints. Allergies Penicillins Allergy (Intermediate, Verified 12/18/18 20:24) Rash hydrocodone Allergy (Verified 12/18/18 20:24) Itching acetaminophen [From Tylenol-Codeine #3] Adverse Reaction (Verified 12/18/18 20: 24) Insomnia codeine [From Tylenol-Codeine #3] Adverse Reaction (Verified 12/18/18 20:24) Insomnia Home medications list reviewed: Yes Home Medications: Apixaban [Eliquis] 5 mg PO BID 12/18/18 Gabapentin 300 mg PO BEDTIME 12/18/18 Levothyroxine [Synthroid*] 100 mcg PO [id number] 12/18/18 - Past Medical/Surgical History Diabetic: No -: History of stage IV bladder cancer -: Hypothyroidism -: Neuropathy -: Recent DVT left lower extremity -: Bladder and prostate resection with bladder pouch -: Eligio bladder Psychosocial/ Personal History: Patient is - Family History Father -: Cancer Mother -: Cancer - Social History Smoking Status: Former smoker Alcohol use: No CD- Drugs: No Caffeine use: No Place of Residence: Home Review of Systems 10-point ROS is otherwise unremarkable Physical Examination - Vital Signs Temperature: 97.9 F Blood Pressure: 99/57 Pulse: 60 Respirations: 16 - Physical Exam General: Alert, In no apparent distress, Oriented x3, Cooperative HEENT: Atraumatic, PERRLA, Mucous membr. moist/pink, EOMI, Sclerae nonicteric Neck: Supple, 2+ carotid pulse no bruit, No LAD, Without JVD or thyroid abnormality Respiratory: Clear to auscultation bilaterally, Normal air movement Cardiovascular: Regular rate/rhythm, Normal S1 S2 Gastrointestinal: Normal bowel sounds, No tenderness Musculoskeletal: No tenderness Integumentary: No rashes Neurological: Normal speech, Normal strength at 5/5 x4 extr, Normal tone, Sensation intact, Cranial nerves 3-12 intact, Normal reflexes 2+, Normal affect , Other (slight droop of left eye noted, but per daughter at bedside, this is his normal. ) Lymphatics: No axilla or inguinal lymphadenopathy - Studies Laboratory Data (last 24 hrs) 01/25/19 10:50: PT 15.1 H, INR 1.29 01/25/19 10:50: WBC 5.6, Hgb 13.8, Hct 39.7, Plt Count 153 01/25/19 10:50: Sodium 142, Potassium 3.6, BUN 16, Creatinine 1.25, Glucose 109 H Assessment and Plan - Problems (Diagnosis) (1) Vision loss, left eye Current Visit: Yes Status: Acute Plan: Painless vision loss. CRAO/CRVO ruled out by opthalmologist (per family) - DDx: TIA, complex migraine, CVA - Non focal neuro exam, symptoms resolved at the time of my exam - Stroke protocol imaging ordered, including carotid ultrasound - Continue home anticoagulation - Start asa, statin - PT/OT (2) TIA (transient ischemic attack) Current Visit: Yes Status: Suspected Plan: Imaging ordered, pending - Neuro consulted, awaiting recommendations (3) DVT (deep venous thrombosis) Current Visit: No Status: Chronic Plan: Hx of DVT, stable - Continue home anticoagulation Qualifiers: DVT location: lower extremity Affected thrombotic vein of extremity: unspecified vein of extremity Chronicity: chronic Laterality: unspecified laterality Qualified Code(s): I82.509 - Chronic embolism and thrombosis of unspecified deep veins of unspecified lower extremity (4) Hypothyroid Current Visit: No Status: Chronic Plan: Stable - Continue home medications Qualifiers: Hypothyroidism type: unspecified Qualified Code(s): E03.9 - Hypothyroidism , unspecified (5) Stage IV bladder cancer Current Visit: No Status: Chronic Plan: In remission; stable - Last chemo 11/2017; he is s/p bladder and prostate removal - Currently has chemo port in place on right chest. - Plan Disposition: Pending workup and neurologist evaluation. - Advance Directives Does patient have a Living Will: No Does patient have a Durable POA for Healthcare: No Time Spent Managing Pts Care (In Minutes): 55
[2019-01-26 05:48] LABS: Absolute Lymphocytes (CBC) 1.6 K/uL (0.7-4.9); Eosinophils % 3.9 % (0-4.4); Hematocrit 36.1 % (39.6-49.0); Lymphocytes % 29.3 % (15.3-44.8); MPV 7.9 fL (7.6-11.3); Monocytes % 12.3 % (3.3-12.3); RBC Red Blood Cell Count 3.97 M/uL (4.33-5.43)
[2019-01-26] MEDS ORDERED: LEVOTHYROXINE SOD 0.1 MG TAB PO SCH (06:00)
[2019-01-26 06:01] LABS: Albumin 3.1 g/dL (3.4-5.0); Potassium 3.7 mmol/L (3.5-5.1); Protein, Total 6.1 g/dL (6.4-8.2)
[2019-01-26] MEDS: NA CHLORIDE 0.9% 1,000 ML IV SCH (06:54)
[2019-01-26] MEDS: APIXABAN 5 MG TABLET PO SCH (08:45)
[2019-01-26] MEDS ORDERED: ASPIRIN EC 81 MG TAB PO SCH (09:00)
[2019-01-26] MEDS ORDERED: POTASSIUM CL SA 10 MEQ TAB PO ONE (09:00)
--- NOTE | 2019-01-26 16:50 | ECHO ---
HEIGHT: 5 ft 11 in WEIGHT: 198 lb 0 oz DATE OF STUDY: 01/26/[address]: Latha De La Cruz MD 2-DIMENSIONAL: YES M.MODE: YES DOPPLER: YES COLOR FLOW: YES TDS: NO PORTABLE: NO DEFINITY: NO BUBBLE STUDY: NO DIAGNOSIS: STROKE CARDIAC HISTORY: CATHERIZATION: NO SURGERY: NO PROSTHETIC VALVE: NO PACEMAKER: NO MEASUREMENTS (cm) DIASTOLIC (NORMALS) SYSTOLIC (NORMALS) IVSd 1.0 (0.6-1.2) LA Diam 3.0 (1.9-4.0) LVEF 76% LVIDd 4.2 (3.5-5.7) LVIDs 2.4 (2.0-3.5) %FS 44% LVPWd 1.2 (0.6-1.2) Ao Diam 3.2 (2.0-3.7) 2 DIMENSIONAL ASSESSMENT: RIGHT ATRIUM: NORMAL LEFT ATRIUM: NORMAL RIGHT VENTRICLE: NORMAL LEFT VENTRICLE: NORMAL TRICUSPID VALVE: NORMAL MITRAL VALVE: NORMAL PULMONIC VALVE: NORMAL AORTIC VALVE: NORMAL PERICARDIAL EFFUSION: NONE AORTIC ROOT: NORMAL LEFT VENTRICULAR WALL MOTION: NORMAL. DOPPLER/COLOR FLOW: NORMAL. COMMENTS: NORMAL 2D ECHOCARDIOGRAM WITH DOPPLER. NO THROMBUS. NO VEGETATION. TECHNOLOGIST: MARYANNE BEDOYA
[2019-01-26 17:06] VITALS: BP 129/68; TEMP 98.9
[2019-01-26 17:09] LABS: Urine Appearance CLOUDY; Urine Bilirubin NEGATIVE (NEG); Urine Blood TRACE (NEG); Urine Color YELLOW; Urine Glucose NEGATIVE (NEG); Urine Protein NEGATIVE (NEG); Urine pH 6.5 (5.0-7.0)
[2019-01-26 17:21] LABS: Urine Bacteria >50 /HPF (NONE SEEN); Urine Culture Reflex Order REFLEXED; Urine RBC <5 /HPF (NONE SEEN)
--- NOTE | 2019-01-26 17:28 | P.SSS ---
Patient History Date of Service: 01/26/19 Reason for admission: Left eye vision loss History of Present Illness: This is a 53 yr old male with a hx of stage IV bladder cancer in remission, a hx of DVT in 11/2018, currently on Eliquis who presented with complaints of left eye vision loss that lasted for 3-4 minutes this morning. The vision restored itself within 4 minutes. Patient went to his ophthalmology doctor to get checkup. Per patient and family, there was no abnormalities noted on his eye exams. No retinal detachment, no retinal vein or artery occlusion was noted. He was recommended to go to the ED for further evaluation. He was then brought in to our ER. His symptoms had resolved but he was complaining of some blurry vision in both eyes. He was also complaining of a mild occipital headache. His vital signs were stable, labs were unremarkable and CT of the head was normal. At the time of my exam, he was AAOx3 and in no acute distress. His symptoms had completely resolved. He denies any cp, sob, speech changes, dizziness, pre-syncope/syncope, GI or complaints. Allergies Penicillins Allergy (Intermediate, Verified 12/18/18 20:24) Rash hydrocodone Allergy (Verified 12/18/18 20:24) Itching acetaminophen [From Tylenol-Codeine #3] Adverse Reaction (Verified 12/18/18 20: 24) Insomnia codeine [From Tylenol-Codeine #3] Adverse Reaction (Verified 12/18/18 20:24) Insomnia Home Medications: Apixaban [Eliquis] 5 mg PO BID 12/18/18 Gabapentin 300 mg PO BEDTIME 12/18/18 Levothyroxine [Synthroid*] 100 mcg PO [id number] 12/18/18 Aspirin [Katrin Chewable Aspirin] 81 mg PO DAILY #30 tab.chew 01/26/19 Atorvastatin Calcium [Lipitor] 80 mg PO BEDTIME #30 tab 01/26/19 Folic Acid 1 mg PO DAILY #30 tablet 01/26/19 - Past Medical/Surgical History Diabetic: No -: History of stage IV bladder cancer -: Hypothyroidism -: Neuropathy -: Recent DVT left lower extremity -: Bladder and prostate resection with bladder pouch -: Eligio bladder Psychosocial/ Personal History: Patient is - Family History Father -: Cancer Mother -: Cancer - Social History Smoking Status: Former smoker Alcohol use: No CD- Drugs: No Caffeine use: No Place of Residence: Home Physical Examination - Vital Signs Temperature: 98.9 F Blood Pressure: 129/68 Pulse: 56 Respirations: 18 Pulse Ox (%): 92 - Diagnosis (Problem(s)) (1) Vision loss, left eye Current Visit: Yes Status: Acute (2) TIA (transient ischemic attack) Current Visit: Yes Status: Suspected (3) DVT (deep venous thrombosis) Current Visit: No Status: Chronic Qualifiers: DVT location: lower extremity Affected thrombotic vein of extremity: unspecified vein of extremity Chronicity: chronic Laterality: unspecified laterality Qualified Code(s): I82.509 - Chronic embolism and thrombosis of unspecified deep veins of unspecified lower extremity (4) Hypothyroid Current Visit: No Status: Chronic Qualifiers: Hypothyroidism type: unspecified Qualified Code(s): E03.9 - Hypothyroidism , unspecified (5) Stage IV bladder cancer Current Visit: No Status: Chronic Treatment Summary: Patient was admitted for Painless vision loss. CRAO/CRVO ruled out by continuous dryout operator helper (per family). You CVA ruled out with negative stroke protocol imaging including carotid ultrasound. Echocardiogram was normal, no thrombus or vegetations noted. He was started on aspirin, statin. He was continued on Eliquis. He was also started on folic acid. Neurology was consulted. Case was discussed with neurologist via telephone. PT/OT wounds ordered and evaluated. Patient with 1 episode of vision change on the day of admission. No further episodes noted afterwards. His neurological exam remained nonfocal. He otherwise remained hemodynamically stable throughout the stay. His diagnosis and treatment plan explained to him. All questions were answered , patient verbalized understanding. He was then discharged home in a safe and stable manner. Is recommended to follow up with neurology in 1 week. - Disposition Discharge Date: 01/26/19 Disposition: ROUTINE DISCHARGE Condition: GOOD Consultations: Neurology Patient Discharge Instructions: Please follow up with your primary care physician in 2-[address] Segovia's office on Tuesday to schedule an appointment for next week in his clinic for further workup. Please return to the Emergency room for worsening symptoms. Diet: AHA Activity: Ad sumit Time Spent Managing Pts Care (In Minutes): 55
== END 2019-01-26 18:09 | disposition home or self-care (01) ==
LOC: ER 10:15 → ERHOLD 12:10 → 2ND 16:10
PROVIDERS: ADMIT Family Medicine; ATTEND Family Medicine
DX: H54.62 Unqualified visual loss, left eye, normal vision right eye (principal); E03.9 Hypothyroidism, unspecified; Z86.718 Personal history of other venous thrombosis and embolism; Z79.01 Long term (current) use of anticoagulants; Z88.0 Allergy status to penicillin; Z85.51 Personal history of malignant neoplasm of bladder
CPT/HCPCS: 36415; 70450; 70544; 70549; 70553; 71045; 80048; 80053; 80061; 81001; 82962; 85025; 85610; 87077; 87086; 87088; 87186; 92610; 93005; 93306; 93880; 94760; 97163; 99285; A9577; G0378; J7030

== ENCOUNTER 2019-02-05 21:49 | Emergency (ER) | payer BC ==
--- OUTSIDE RECORDS SUMMARY | 2019-02-05 21:51 | XMS REPORT | Clinical Summary ---
:[address] [facility] Address [address] [place] [address] Care Team Providers Name Role Phone Jhonny [...] neoplasm MD Reg of urinary bladder, 1, [facility] Manuel unspecified site Ct Room ([facility]) 11/14/2018 Hospital Encounter Computed Tomography Fernandez Myrick Malignant neoplasm MD Reg of urinary bladder, 1, [facility] Manuel unspecified site Ct Room ([facility]) 11/03/2018 Outside Orders Central Scheduling Jobypalma YaminiWade Malignant neoplasm MD Reg of urinary bladder, unspecified site ([facility]) (Primary Dx) after 02/04/2018 Social History Tobacco Use Types Packs/Day Years [...] Not on file Implants Implanted Type Area Collection Clerk Device Shelf Model / Serial Identifier Expiration / Lot Date Cath Exp Silv Soak Field Geologist 12.5cmx [id number] - [id number] Pain RAKEL-MADISON 03/08/2020 [id number] / Implanted: Qty: 1 on 01/02/2018 by Danny Vaughn MD Mgmt/Stim / ulator [id number] Cath Exp Silv Soak Field Geologist 12.5cmx [id number] - [id number] Pain RAKEL-MADISON 12/15/2019 [id number] / Implanted: Qty: 1 on 01/02/2018 by Danny Vaughn MD Mgmt/Stim / ulator [id number] Stent,[place] Court Bailiff Or Sheriff Diversion 8.4fr Left - [id number] Uro Stent [employer] 08/08/2018 [id number] / Implanted: Qty: 1 on 01/02/2018 by Danny Vaughn MD / [id number] Stent Court Bailiff Or Sheriff [place] [id number] R [id number] - [id number] Uro Stent [employer]:UROLOGY 08/08/2018 [id number] / Implanted: Qty: 1 on 01/02/2018 by Danny Vaughn MD / [id number] Procedures Procedure Name Priority Date/Time Associated Comments Diagnosis CT ABDOMEN/PELVIS WITH Routine 11/14/2018 4:35 Malignant neoplasm Results for this IV CONTRAST PM CDT of urinary bladder, procedure are in unspecified site the results ([facility]) section. CT CHEST WITH IV Routine 11/14/2018 4:35 Malignant neoplasm Results for this CONTRAST PM CDT of urinary bladder, procedure are in unspecified site the results ([facility]) section. POCT-CREATININE Routine 11/14/2018 4:27 Results for this PM CDT procedure are in the results section. INTRAOPERATIVE PATH 10/20/2018 10:00 REPORT - SCAN AM CDT INTRAOPERATIVE PATH 10/20/2018 10:00 REPORT - SCAN AM CDT INTRAOPERATIVE PATH 10/20/2018 10:00 REPORT - SCAN AM CDT INTRAOPERATIVE PATH 10/20/2018 10:00 REPORT - SCAN AM CDT after 02/04/[address] Abdomen/Pelvis with IV Contrast (11/14/2018 4:35 PM CDT) Specimen Narrative Performed At FINAL REPORT [id number] CHEST, ABDOMEN, AND PELVIS WITH CONTRAST HISTORY:Malignant neoplasm of urinary bladder, bladder cancer status post NAC and radical cystectomy, RPLND and [id number] COMPARISON:CT of the chest, abdomen and pelvis [...] 09:03:01 Performing Organization Address City/State/Zipcode Phone Number [id number] Chest with IV Contrast (11/14/2018 4:35 PM CDT) Specimen Narrative Performed At FINAL REPORT [id number] CHEST, ABDOMEN, AND PELVIS WITH CONTRAST HISTORY:Malignant neoplasm of urinary bladder, bladder cancer status post NAC and radical cystectomy, RPLND and [id number] COMPARISON:CT of the chest, abdomen and pelvis [...] 4:27 PM CDT) POC-Creatinine 1.3Comment: TESTED AT [facility] 0.6 - 1.3 mg/dL [facility] [address] [facility] [id number] POC-EGFR 58 mL/min/1.73M2 [facility] Specimen Blood Performing Organization Address [facility] Phone Number [facility] [address] [place] [address] CENTER INTRAOPERATIVE PATH REPORT - SCAN (10/20/2018 10:00 AM CDT)Only the most recent of4 resultswithin the time period is included. Narrative Performed At after 02/04/2018 Insurance Payer Benefit Plan / Subscriber ID Type Phone Address Group BLUE CROSS/BLUE BCBS PPO POS EPO xxxxxxxxxxxx PPO [phone] [address] [place] [address] Advance Directives For more information, please contact:[address] [phone] Code Status Date Activated Date Inactivated Comments Full Code 01/02/2018 4:21 PM 01/07/2018 7:49 PM This code status was determined by: Patient Full Code 08/16/2017 2:09 PM 08/16/2017 4:18 PM This code status was determined by: Patient
--- OUTSIDE RECORDS SUMMARY | 2019-02-05 21:52 | XMS REPORT ---
:1965 Author Organization [facility] Address [address] [place] [address] Care Team Providers Name Role Phone BERTRAND [...] (JACQUELINEKEILY) (test 1.3 mg/dL 0.6-1.3 TESTED AT [facility] 7200 pgbf=0356) [facility] [address] POC-EGFR (MARCIE) (test 58 mL/min/1.73M2 bhjd=1771) TISSUE [id number] 16:33:00Surgical Pathology Report Case: [id number] Authorizing Provider: Danny Vaughn MD Collected: 01/02/2018 0944 Ordering Location: [facility] PERI[facility]AT[facility] Received: 01/02/2018 0950 SERVICES Pathologist: [...] (pT): pT0 Regional Lymph Nodes (pN): pN3 28858, 88789 X 9, 39243 X 4, 32792 X 11Bladder cancerA. Pelvic lymph nodes, para- [...] Black-right bladder and prostate, blue-left bladder and prostate.[employer] Career Manager sections are submitted as follows: R1, left ureter resection margin; R2, right ureter resection margin; R3, left ureteral orifice; R4, right ureteral orifice; R5, left ureter sales representative uniforms sections; R6,right ureter sales representative uniforms sections; R7 -R23, left lateral bladder wall scar, end submitted; R24, R25, right lateral wall sales representative uniforms sections; R26, R27, sales representative uniforms sections of posterior wall; R28, R29, sales representative uniforms sections of bladder dome; R30, sales representative uniforms section of trigone; R31, sales representative uniforms section of anterior wall; R32, prostate apex; R33-37, prostate from apex to base; R38, seminal vesicles. DD/ewS. Labeled "small bowel resection" consists of a segment of small bowel measuring 3cm in length x 1.5 cm in diameter. The specimen is grossly unremarkable. Section code: S1, resectionmargin en face; S2, random section of small bowel. CG /plFROZEN SECTION DIAGNOSIS:[id number]: DISTAL PARA-AORTIC LYMPH NODE, EXCISION: - TUMOR PRESENT IN LYMPH NODE - REPORTED BY DR. ARTHUR TO DR. VAUGHN AT 10:20 [id number]: LYMPH NODE, PROXIMAL LIMIT OF DISSECTION PARAORTA, [...] DR. SANDHYA VAUGHN AT 11:45 AM Performed.URINE [id number] 12:19:00 Test Item Value Reference Range Comments CULTURE (Zapcoder) (test ENTEROCOCCUS SPECIES >100,000 col/mL ywtj=0857) Enterococcus species Ampicillin (test code=26) Linezolid (test code=40) Nitrofurantoin (test code=23) Tetracycline (test code=2) Vancomycin (test code=13) [id number] 08:23:00 Test Item Value Reference Range Comments PHOSPHORUS (BEAKER) (test rmrg=967) 3.0 mg/dL 2.3-4.7 Before arterial line is [id number] 08:23:00 Test Item Value Reference Range Comments MAGNESIUM (BEAKER) (test ipmm=862) 1.6 mg/dL 1.6-2.6 Before arterial line is discontinuedBASIC METABOLIC [id number] 08:23:00 Test Item Value Reference Range Comments SODIUM (BEAKER) (test 139 meq/L 136-145 ogag=025) POTASSIUM (BEAKER) (test 3.5 meq/L 3.5-5.1 tyyv=731) CHLORIDE (BEAKER) (test 106 meq/L 98-107 ookd=301) CO2 (BEAKER) (test 26 meq/L 22-29 rvyh=321) BLOOD UREA NITROGEN 9 mg/dL 7-21 (BEAKER) (test hxmc=117) CREATININE (BEAKER) (test 0.85 mg/dL 0.57-1.25 rcex=841) GLUCOSE RANDOM (BEAKER) 97 mg/dL 70-105 (test xqck=990) CALCIUM (BEAKER) (test 8.4 mg/dL 8.4-10.2 vnta=391) EGFR (BEAKER) (test 95 mL/min/1.73 sq m ESTIMATED GFR IS NOT civt=9580) ACCURATE CREATININE CLEARANCE IN PREDICTING GLOMERULAR FILTRATION RATE. ESTIMATED GFR IS NOT APPLICABLE FOR DIALYSIS PATIENTS. Before arterial line is discontinuedHEMOGLOBIN AND [id number] 07:53:00 Test Item Value Reference Range Comments HEMOGLOBIN (BEAKER) (test bjhc=746) 8.3 GM/DL 13.7-17.5 HEMATOCRIT (BEAKER) (test egga=351) 25.5 % 40.1-51.0 [id number] 07:53:00 Test Item Value Reference Range Comments PHOSPHORUS (BEAKER) (test ofub=185) 3.0 mg/dL 2.3-4.7 Before arterial line is [id number] 07:53:00 Test Item Value Reference Range Comments MAGNESIUM (BEAKER) (test fatr=953) 1.6 mg/dL 1.6-2.6 Before arterial line is discontinuedBASIC METABOLIC [id number] 07:53:00 Test Item Value Reference Range Comments SODIUM (BEAKER) (test 135 meq/L 136-145 halj=289) POTASSIUM (BEAKER) (test 3.9 meq/L 3.5-5.1 klge=819) CHLORIDE (BEAKER) (test 109 meq/L 98-107 cdwo=790) CO2 (BEAKER) (test 20 meq/L 22-29 pnqz=539) BLOOD UREA NITROGEN 12 mg/dL 7-21 (BEAKER) (test vgoo=697) CREATININE (BEAKER) (test 0.88 mg/dL 0.57-1.25 vhgg=968) GLUCOSE RANDOM (BEAKER) 94 mg/dL 70-105 (test eksm=086) CALCIUM (BEAKER) (test 8.2 mg/dL 8.4-10.2 mavw=604) EGFR (BEAKER) (test 91 mL/min/1.73 sq m ESTIMATED GFR IS NOT qyzd=1059) ACCURATE CREATININE CLEARANCE IN PREDICTING GLOMERULAR FILTRATION RATE. ESTIMATED GFR IS NOT APPLICABLE FOR DIALYSIS PATIENTS. Before arterial line is discontinuedHEMOGLOBIN AND [id number] 06:12:00 Test Item Value Reference Range Comments HEMOGLOBIN (BEAKER) (test uowf=047) 7.6 GM/DL 13.7-17.5 HEMATOCRIT (BEAKER) (test ooiv=623) 23.7 % 40.1-51.0 [id number] 05:44:00 Test Item Value Reference Range Comments PHOSPHORUS (BEAKER) (test jpmk=737) 3.0 mg/dL 2.3-4.7 Before arterial line is [id number] 05:44:00 Test Item Value Reference Range Comments MAGNESIUM (BEAKER) (test pfce=452) 1.6 mg/dL 1.6-2.6 Before arterial line is discontinuedBASIC METABOLIC [id number] 05:44:00 Test Item Value Reference Range Comments SODIUM (BEAKER) (test 138 meq/L 136-145 qfgk=176) POTASSIUM (BEAKER) (test 4.1 meq/L 3.5-5.1 yuup=345) CHLORIDE (BEAKER) (test 109 meq/L 98-107 leqj=063) CO2 (BEAKER) (test 21 meq/L 22-29 xdgs=689) BLOOD UREA NITROGEN 19 mg/dL 7-21 (BEAKER) (test oooo=207) CREATININE (BEAKER) (test 1.12 mg/dL 0.57-1.25 qdxa=806) GLUCOSE RANDOM (BEAKER) 107 mg/dL 70-105 (test jcnw=501) CALCIUM (BEAKER) (test 8.3 mg/dL 8.4-10.2 eyiu=863) EGFR (BEAKER) (test 69 mL/min/1.73 sq m ESTIMATED GFR IS NOT oxxn=8668) ACCURATE CREATININE CLEARANCE IN PREDICTING GLOMERULAR FILTRATION RATE. ESTIMATED GFR IS NOT APPLICABLE FOR DIALYSIS PATIENTS. Before arterial line is discontinuedHEMOGLOBIN AND [id number] 05:07:00 Test Item Value Reference Range Comments HEMOGLOBIN (BEAKER) (test hftt=343) 7.6 GM/DL 13.7-17.5 HEMATOCRIT (BEAKER) (test exqo=139) 23.4 % 40.1-51.0 [id number] 06:36:00 Test Item Value Reference Range Comments MAGNESIUM (BEAKER) (test qvsj=244) 2.1 mg/dL 1.6-2.6 Before arterial line is discontinuedBASIC METABOLIC [id number] 06:36:00 Test Item Value Reference Range Comments SODIUM (BEAKER) (test 134 meq/L 136-145 aftd=254) POTASSIUM (BEAKER) (test 4.9 meq/L 3.5-5.1 rjty=698) CHLORIDE (BEAKER) (test 107 meq/L 98-107 sxyg=387) CO2 (BEAKER) (test 21 meq/L 22-29 otqr=266) BLOOD UREA NITROGEN 26 mg/dL 7-21 (BEAKER) (test nnsx=724) CREATININE (BEAKER) (test 1.36 mg/dL 0.57-1.25 gnfr=978) GLUCOSE RANDOM (BEAKER) 113 mg/dL 70-105 (test vaag=064) CALCIUM (BEAKER) (test 8.2 mg/dL 8.4-10.2 epeg=674) EGFR (BEAKER) (test 55 mL/min/1.73 sq m ESTIMATED GFR IS NOT shhp=7746) ACCURATE CREATININE CLEARANCE IN PREDICTING GLOMERULAR FILTRATION RATE. ESTIMATED GFR IS NOT APPLICABLE FOR DIALYSIS PATIENTS. Before arterial line is [id number] 06:36:00 Test Item Value Reference Range Comments PHOSPHORUS (BEAKER) (test yheo=305) 3.3 mg/dL 2.3-4.7 HEMOGLOBIN AND [id number] 06:16:00 Test Item Value Reference Range Comments HEMOGLOBIN (BEAKER) (test ddtz=782) 7.9 GM/DL 13.7-17.5 HEMATOCRIT (BEAKER) (test vqan=826) 24.4 % 40.1-51.0 [id number] 06:27:00 Test Item Value Reference Range Comments PHOSPHORUS (BEAKER) (test qagp=758) 3.4 mg/dL 2.3-4.7 Before arterial line is [id number] 06:27:00 Test Item Value Reference Range Comments MAGNESIUM (BEAKER) (test czun=694) 2.3 mg/dL 1.6-2.6 Before arterial line is discontinuedBASIC METABOLIC [id number] 06:27:00 Test Item Value Reference Range Comments SODIUM (BEAKER) (test 134 meq/L 136-145 ockc=405) POTASSIUM (BEAKER) (test 5.6 meq/L 3.5-5.1 qkps=223) CHLORIDE (BEAKER) (test 108 meq/L 98-107 ikab=242) CO2 (BEAKER) (test 19 meq/L 22-29 myhw=482) BLOOD UREA NITROGEN 27 mg/dL 7-21 (BEAKER) (test ywbk=290) CREATININE (BEAKER) (test 1.62 mg/dL 0.57-1.25 rane=326) GLUCOSE RANDOM (BEAKER) 155 mg/dL 70-105 (test wzql=988) CALCIUM (BEAKER) (test 8.6 mg/dL 8.4-10.2 mbfx=105) EGFR (BEAKER) (test 45 mL/min/1.73 sq m ESTIMATED GFR IS NOT icxu=3262) ACCURATE CREATININE CLEARANCE IN PREDICTING GLOMERULAR FILTRATION RATE. ESTIMATED GFR IS NOT APPLICABLE FOR DIALYSIS PATIENTS. Before arterial line is discontinuedHEMOGLOBIN AND [id number] 06:12:00 Test Item Value Reference Range Comments HEMOGLOBIN (BEAKER) (test oazu=395) 8.7 GM/DL 13.7-17.5 HEMATOCRIT (BEAKER) (test sxnn=874) 26.1 % 40.1-51.0 BASIC METABOLIC [id number] 16:59:00 Test Item Value Reference Range Comments SODIUM (BEAKER) (test 137 meq/L 136-145 uqsk=907) POTASSIUM (BEAKER) (test 5.0 meq/L 3.5-5.1 xtxz=498) CHLORIDE (BEAKER) (test 110 meq/L 98-107 gxqu=765) CO2 (BEAKER) (test 17 meq/L 22-29 gqqw=497) BLOOD UREA NITROGEN 18 mg/dL 7-21 (BEAKER) (test nyno=334) CREATININE (BEAKER) (test 1.22 mg/dL 0.57-1.25 aitb=356) GLUCOSE RANDOM (BEAKER) 156 mg/dL 70-105 (test phmg=658) CALCIUM (BEAKER) (test 8.6 mg/dL 8.4-10.2 lnxb=343) EGFR (BEAKER) (test 63 mL/min/1.73 sq m ESTIMATED GFR IS NOT bldn=6129) ACCURATE CREATININE CLEARANCE IN PREDICTING GLOMERULAR FILTRATION RATE. ESTIMATED GFR IS NOT APPLICABLE FOR DIALYSIS PATIENTS. [facility] [id number] 16:13:00 Test Item Value Reference Range Comments HEMOGLOBIN (BEAKER) (test txty=964) 8.5 GM/DL 13.7-17.5 HEMATOCRIT (BEAKER) (test qkcs=273) 25.5 % 40.1-51.0 SODIUM NA-STAT [id number] 13:04:00 Test Item Value Reference Range Comments SODIUM (BEAKER) (test kaay=675) 137 meq/L 135-148 POTASSIUM-STAT [id number] 13:04:00 Test Item Value Reference Range Comments POTASSIUM (BEAKER) (test jgyq=696) 4.1 meq/L 3.6-5.5 CALCIUM, [id number] 13:04:00 Test Item Value Reference Range Comments CALCIUM IONIZED (BEAKER) (test ogtv=790) 1.08 mmol/L 1.12-1.27 PH, BLOOD (BEAKER) (test hhll=0643) 7.39 BLOOD GAS, [id number] 13:04:00 Test Item Value Reference Range Comments PH ARTERIAL (BEAKER) (test mdpi=546) 7.39 7.35-7.45 PCO2 ARTERIAL (BEAKER) (test ruji=938) 36 mmHg 35-45 PO2 ARTERIAL (BEAKER) (test owan=821) 241 mmHg 80-90 O2 SATURATION ARTERIAL (BEAKER) (test fubo=967) 99.5 % 96.0-97.0 HCO3 ARTERIAL (BEAKER) (test heov=150) 21 mmol/L 21-29 BASE EXCESS ARTERIAL (BEAKER) (test ymqj=439) -3.2 mmol/L -2.0-3.0 PATIENT TEMPERATURE (BEAKER) (test lqpf=8771) 37.0 C FIO2 (BEAKER) (test ephz=4977) 100.0 % GLUCOSE-STAT [id number] 13:04:00 Test Item Value Reference Range Comments GLUCOSE RANDOM (BEAKER) (test ctne=711) 121 mg/dL 70-110 HGB/HCT (H&H) - STAT [id number] 13:04:00 Test Item Value Reference Range Comments HEMOGLOBIN (BEAKER) (test kvlq=506) 7.7 g/dL 13.0-16.8 HEMATOCRIT (BEAKER) (test gayu=300) 23.0 % 40.0-50.0 BASIC METABOLIC [id number] 08:07:00 Test Item Value Reference Range Comments SODIUM (BEAKER) (test 138 meq/L 136-145 qvpg=768) POTASSIUM (BEAKER) (test 3.9 meq/L 3.5-5.1 Specimen slightly ynrc=822) hemolyzed CHLORIDE (BEAKER) (test 102 meq/L 98-107 uhrs=997) CO2 (BEAKER) (test 26 meq/L 22-29 slrm=069) BLOOD UREA NITROGEN 17 mg/dL 7-21 (BEAKER) (test qmpx=330) CREATININE (BEAKER) (test 1.00 mg/dL 0.57-1.25 Specimen slightly atkn=617) hemolyzed GLUCOSE RANDOM (BEAKER) 100 mg/dL 70-105 (test qeyw=686) CALCIUM (BEAKER) (test 9.3 mg/dL 8.4-10.2 hgih=132) EGFR (BEAKER) (test 79 mL/min/1.73 sq m ESTIMATED GFR IS NOT jgdo=1458) ACCURATE CREATININE CLEARANCE IN PREDICTING GLOMERULAR FILTRATION RATE. ESTIMATED GFR IS NOT APPLICABLE FOR DIALYSIS PATIENTS. [id number] 07:18:00 Test Item Value Reference Range Comments HEMOGLOBIN SHABANA) (test cigv=154) 11.3 GM/DL 13.7-17.5 Check DOSANG, CV ACCESS, [id number] 13:27:00Reason for Exam:->Malgnant neoplasm of urinary bladder, [...] the patient's medical record by the nurse. Tank Worker: Daniel Ty MD Material Preparation Worker: None. Approach: Right internal jugular vein Estimated [...] needle into the right atrium. A 4 Moldovan micropuncture sheath was placed. A subcutaneous tunnel and pocket were created in the right anterior chest wall by blunt dissection. The pocket was flushed with antibiotic solution. A 6 Moldovan Bard single lumen power injectable port was [...] MDReport Verified Date/Time: 2017 13:27:04 Reading Location: [place] [address] Angio Body Reading Room [id number] 09:22:00 Test Item Value Reference Range Comments PROTIME (BEAKER) (test pgzn=147) 14.0 seconds 11.7-14.7 INR (BEAKER) (test ehcw=110) 1.1 <=5.9 PARTIAL THROMBOPLASTIN TIME (BEAKER) (test 28.1 seconds 22.5-36.0 wunl=230) RECOMMENDED COUMADIN/WARFARIN INR THERAPY RANGESSTANDARD DOSE: 2.0 - 3.0 Includes: PROPHYLAXIS forvenous thrombosis, systemic embolization; TREATMENT for venous thrombosis and/or pulmonary embolus.HIGH RISK: Target INR is 2.5-3.5 for patients with mechanical heart valves.PLATELET [id number] 09:07:00 Test Item Value Reference Range Comments PLATELET COUNT (BEAKER) (test sagd=662) 283 K/CU MM 150-450 PET/CT, WHOLE BODY [id number] 14:56:00Reason for Exam:->c67.9FINAL REPORT EXAMINATION: FDG-PET/CT, 08/03/2017 [...] feetAdditional imaging: NoneSerum blood glucose: 109CPT Code: 72000 FINDINGS:Head and Neck: Mild bernice activity is [...] consistent with infection or inflammation. Signed: [facility] Verified Date/Time: 08/03/2017 14:56:22 02 :56 PMPOCT-GLUCOSE [id number] 09:20:00 Test Item Value Reference Range Comments POC-GLUCOSE METER (BEAKER) 109 mg/dL 70-110 TESTED AT [facility] [address] [facility] (test vhnd=1055) [facility] [address] TISSUE [id number] 14:18:00Surgical Pathology Report Case: [id number] Authorizing Provider: Danny Vaughn MD Collected: 07/25/2017 1140 Ordering Location: [facility] PERI[facility] Received: 07/25/2017 1251 SERVICES Pathologist: [...] GRANULOMATOUS INFLAMMATION Signing Pathologist Direct Phone Line: [phone] signed by Abdulaziz Daniels MD on 07/26/2017 at 2:18 PMApproximately 20% of the tumor shows some degree of squamous differentiation and 1% shows a micropapillary pattern.67413, 48176Ypmhxyw cancerA. Bladder tumor left lateral wall. B. [...] entirely submitted in cassette B1. DB/ewPerformed.URINALYSIS W/ [id number] 09: 23:00 Test Item Value Reference Range Comments COLOR (BEAKER) (test dkmd=382) Yellow CLARITY (BEAKER) (test acka=722) Hazy SPECIFIC GRAVITY UA (BEAKER) (test 1.019 1.001-1.035 llnp=886) PH UA (BEAKER) (test jrqx=828) 5.5 5.0-8.0 PROTEIN UA (BEAKER) (test lvkg=960) 100 mg/dL Negative GLUCOSE UA (BEAKER) (test roue=798) Negative Negative KETONES UA (BEAKER) (test hilp=643) Negative Negative BILIRUBIN UA (BEAKER) (test djcp=772) Negative Negative BLOOD UA (BEAKER) (test shlj=771) Moderate Negative NITRITE UA (BEAKER) (test pkwf=357) Negative Negative LEUKOCYTE ESTERASE UA (BEAKER) (test Large Negative qsjk=187) UROBILINOGEN UA (BEAKER) (test pqhp=242) 2.0 mg/dL 0.2-1.0 RBC UA (BEAKER) (test oxuo=631) 27 /HPF WBC UA (BEAKER) (test clmh=260) 155 /HPF MUCUS (BEAKER) (test cgdj=5128) Rare HYALINE CASTS (BEAKER) (test lhrz=669) 1 /LPF SOURCE(BEAKER) (test piry=4889) Urine, Clean Catch
[2019-02-06 00:13] LABS: Absolute Lymphocytes (CBC) 2.3 K/uL (0.7-4.9); Basophils % 1.1 % (0-1.3); Hematocrit 39.1 % (39.6-49.0); Lymphocytes % 31.2 % (15.3-44.8); MPV 7.8 fL (7.6-11.3); Protime INR 1.23; RBC Red Blood Cell Count 4.33 M/uL (4.33-5.43)
[2019-02-06] MEDS ORDERED: NA CHLORIDE 0.9% 1,000 ML ONE (00:19)
[2019-02-06 00:25] LABS: ALT/SGPT 32 U/L (12-78); AST/SGOT 29 U/L (15-37); Albumin 3.8 g/dL (3.4-5.0); Alkaline Phosphatase 148 U/L (45-117); BUN Blood Urea Nitrogen 20 mg/dL (7-18); Bicarbonate 32 mmol/L (21-32); Bilirubin Direct 0.3 mg/dL (0-0.2); Bilirubin Total 0.7 mg/dL (0.2-1.0); Glucose Level 99 mg/dL (74-106); Magnesium 2.2 mg/dL (1.8-2.4); Potassium 3.7 mmol/L (3.5-5.1); Protein, Total 7.4 g/dL (6.4-8.2); Sodium Level 142 mmol/L (136-145); Troponin (Emerg Dept Use Only) < 0.02 ng/mL (0.0-0.045)
--- NOTE | 2019-02-06 02:06 | ER ---
[facility]'s [facility] Name: Diaz Sadler Age: 53 yrs Sex: Male : 1965 Arrival Date: 02/05/2019 Time: 21:55 Bed 14 Private MD: Kennedy Arias Diagnosis: Weakness-general;Visual disturbances-blurry Presentation: 02/05 22:16 Presenting complaint: Patient states: he is having visual disturbances similar to bb symptoms he had recently and was hospitalized for here. Pt states VA is blurry and yesterday he had 2 episodes of visual disturbances pt is in remission with stage IV bladder cancer has follow-up appointment with Dr Segovia Sept. 2. Transition of care: patient was not received from another setting of care. Onset of symptoms was February 03, 2019. Risk Assessment: Do you want to hurt yourself or someone else? Patient reports no desire to harm self or others. Initial Sepsis Screen: Does the patient meet any 2 criteria? No. Patient's initial sepsis screen is negative. Does the patient have a suspected source of infection? No. Patient's initial sepsis screen is negative. Care prior to arrival: None. 22:16 Method Of Arrival: Ambulatory bb 22:16 Acuity: TERESA 3 bb Historical: - Allergies: 22:22 Codeine; itch; bb - Home Meds: 22:22 Eliquis Oral [Active]; Synthroid Oral [Active]; gabapentin 300 mg oral cap 1 cap daily bb [Active]; atorvastatin 80 mg oral tab 1 tab once daily [Active]; folic acid 1 mg Oral tab 1 tab once daily [Active]; - PMHx: 22:22 Bladder CA; Hypothyroidism; neuropathy; bb - PSHx: 22:22 bladder resection; bb - Immunization history:: Adult Immunizations up to date. - Social history:: Smoking status: Patient/guardian denies using tobacco. - Ebola Screening: : No symptoms or risks identified at this time. Screenin:23 VAN Screening: Arm Drift: Patient shows no arm weakness. Patient is VAN negative. bb 22:30 Abuse screen: Denies threats or abuse. Denies injuries from another. Nutritional aa1 screening: No deficits noted. Tuberculosis screening: No symptoms or risk factors identified. Fall Risk None identified. Assessment: 22:30 General: Appears in no apparent distress. comfortable, Behavior is calm, cooperative, aa1 appropriate for age. Pain: Denies pain. Neuro: Level of Consciousness is awake, alert, obeys commands, Oriented to person, place, time, situation, Scrap Worker are equal bilaterally Moves all extremities. Full function Gait is steady, Speech is normal, Facial symmetry appears normal, Pupils are PERRLA, Intact Reports blurred vision. Cardiovascular: Denies chest pain, palpitations, shortness of breath. Respiratory: Airway is patent Respiratory effort is even, unlabored, Respiratory pattern is regular, symmetrical. GI: No signs and/or symptoms were reported involving the gastrointestinal system. : No signs and/or symptoms were reported regarding the genitourinary system. EENT: No signs and/or symptoms were reported regarding the EENT system. Derm: Skin is intact, is healthy with good turgor, Skin is pink, warm \T\ dry. Musculoskeletal: Circulation, motion, and sensation intact. Capillary refill < 3 seconds. 02/06 02:17 Reassessment: Patient appears in no apparent distress at this time. Patient is alert, aa1 oriented x 3, equal unlabored respirations, skin warm/dry/pink. Discussed d/c \T\ f/u instructions with pt; denies questions or concerns at this time Patient states feeling better. Vital Signs: 02/05 22:22 BP 128 / 84; Pulse 75; Resp 16 S; Temp 98.7(O); Pulse Ox 97% on R/A; Weight 89.81 kg bb (R); Height 5 ft. 11 in. (180.34 cm) (R); Pain 0/10; 23:45 BP 128 / 80; Pulse 71; Resp 18; Pulse Ox 97% on R/A; Pain 0/10; aa1 02/06 01:00 BP 120 / 85; Pulse 62; Resp 16; Pulse Ox 99% on R/A; Pain 0/10; aa1 02:17 BP 109 / 70; Pulse 55; Resp 16; Temp 98.5; Pulse Ox 97% on R/A; Pain 0/10; aa1 02/05 22:22 Body Mass Index 27.62 (89.81 kg, 180.34 cm) ED Course: 02/05 21:55 Patient arrived in ED. es 21:56 Kennedy Arias MD is Private Physician. es 22:20 Triage completed. bb 22:22 Arm band placed on Patient placed in an exam room, on a stretcher, on pulse oximetry. bb Family accompanied patient. 22:30 Patient has correct armband on for positive identification. Bed in low position. Call aa1 light in reach. cardiac monitor on. Pulse ox on. NIBP on. 23:14 Ricardo Dewey PA is PHCP. cp 23:14 Chas Edgar MD is Attending Physician. cp 23:53 Inserted saline lock: 20 gauge in left antecubital area, using aseptic technique. Blood ar5 collected. 23:58 Mayelin Bustos, RN is Primary Nurse. aa1 02/06 01:00 CT Head Brain wo Cont In Process Unspecified. EDMS 02:06 Balaji Amos MD is Referral Physician. cp 02:20 No provider procedures requiring assistance completed. IV discontinued, intact, aa1 bleeding controlled, No redness/swelling at site. Pressure dressing applied. Administered Medications: 00:10 Drug: NS 0.9% 1000 ml Route: IV; Rate: 1 bolus; Site: left antecubital; aa1 01:00 Follow up: IV Status: Completed infusion; IV Intake: 1000ml aa1 Intake: 01:00 IV: 1000ml; Total: 1000ml. aa1 Outcome: 02:05 Discharge ordered by . cp 02:20 Discharged to home ambulatory, with significant other. aa1 02:20 Condition: good 02:20 Discharge instructions given to patient, significant other, Instructed on discharge instructions, follow up and referral plans. Demonstrated understanding of instructions, follow-up care. 02:21 Patient left the ED. aa1 Signatures: Dispatcher [employer] EDIL Mayelin Bustos, RN RN aa1 Kenzie Padilla Brenda RN RN Ricardo Rodriguez PA PA cp Robles, Autumn ar5
--- NOTE | 2019-02-06 02:07 | EDPHYS ---
Physician Documentation [facility] Name: Diaz Sadler Age: 53 yrs Sex: Male : 1965 Arrival Date: 02/05/2019 Time: 21:55 Bed 14 Private MD: Kennedy Arias ED Physician Chas Edgar HPI: 02/05 23:35 This 53 yrs old Male presents to ER via Ambulatory with complaints of Vision cp Problem, DISORIENTED, TIA SYMPTOMS. 23:35 The patient is experiencing blurred vision. cp 23:35 Onset: The symptoms/episode began/occurred today. Duration: the symptoms are cp continuous. Associated signs and symptoms: Pertinent positives: general weakness, Pertinent negatives: fever, headache. Patient wears glasses. Severity of symptoms: in the emergency department the symptoms are unchanged despite home interventions. 23:35 The patient has been recently seen at the [facility] Emergency cp Department, a couple of weeks ago, for similar complaints hospitalized on 01-25-2019 for TIA. 23:35 Patient reports he does not take recommended aspirin since discharge from hospital due cp to concern for interaction with Eliquis. Patient denies any loss of vision and denies any focal weakness. Historical: - Allergies: 22:22 Codeine; itch; bb - Home Meds: 22:22 Eliquis Oral [Active]; Synthroid Oral [Active]; gabapentin 300 mg oral cap 1 cap daily bb [Active]; atorvastatin 80 mg oral tab 1 tab once daily [Active]; folic acid 1 mg Oral tab 1 tab once daily [Active]; - PMHx: 22:22 Bladder CA; Hypothyroidism; neuropathy; bb - PSHx: 22:22 bladder resection; bb - Immunization history:: Adult Immunizations up to date. - Social history:: Smoking status: Patient/guardian denies using tobacco. - Ebola Screening: : No symptoms or risks identified at this time. ROS: 23:45 Constitutional: Negative for body aches, chills, fever, poor PO intake. cp 23:45 Eyes: Positive for blurry vision, Negative for discharge, pain, redness, vision loss. 23:45 ENT: Negative for drainage from ear(s), ear pain, sore throat, difficulty swallowing, difficulty handling secretions. 23:45 Cardiovascular: Negative for chest pain, edema, palpitations. 23:45 Respiratory: Negative for cough, shortness of breath, wheezing. 23:45 Abdomen/GI: Negative for abdominal pain, nausea, vomiting, and diarrhea, anorexia, black/tarry stool, rectal bleeding. 23:45 Back: Negative for pain at rest, pain with movement, radiated pain. 23:45 : Negative for urinary symptoms. 23:45 Skin: Negative for rash. 23:45 Neuro: Positive for weakness, Negative for altered mental status, headache, numbness, syncope, tingling. 23:45 All other systems are negative. Exam: 23:50 Constitutional: The patient appears in no acute distress, alert, awake, cp non-diaphoretic, non-toxic, well developed, well nourished. 23:50 Head/Face: Normocephalic, atraumatic. Eyes: Pupils equal round and reactive to light, cp extra-ocular motions intact. Lids and lashes normal. Conjunctiva and sclera are non-icteric and not injected. Cornea within normal limits. Periorbital areas with no swelling, redness, or edema. 23:50 ENT: External ear(s): are unremarkable, Nose: is normal, Mouth: Lips: moist, Oral mucosa: moist, Posterior pharynx: is normal, airway is patent, no erythema, no exudate. 23:50 Neck: ROM/movement: is normal, is supple, without pain, no range of motions limitations, no nuchal rigidity. 23:50 Chest/axilla: Inspection: normal, Palpation: is normal, no crepitus, no tenderness. 23:50 Cardiovascular: Rate: normal, Rhythm: regular, Heart sounds: murmur, not appreciated, Edema: is not appreciated, JVD: is not appreciated. 23:50 Respiratory: the patient does not display signs of respiratory distress, Respirations: normal, no use of accessory muscles, no retractions, no splinting, no tachypnea, labored breathing, is not present, Breath sounds: are clear throughout, no decreased breath sounds, no stridor, no wheezing. 23:50 Abdomen/GI: Inspection: abdomen appears normal, Palpation: abdomen is soft and non-tender, in all quadrants. 23:50 Neuro: Orientation: to person, place \T\ time. Mentation: is normal, Cerebellar function: Romberg testing is negative, normal finger to nose testing, heel to rodríguez testing is normal, Motor: moves all fours, strength is normal, Sensation: is normal. 02/06 00:13 ECG was reviewed by the Attending Physician. cp Vital Signs: 02/05 22:22 BP 128 / 84; Pulse 75; Resp 16 S; Temp 98.7(O); Pulse Ox 97% on R/A; Weight 89.81 kg bb (R); Height 5 ft. 11 in. (180.34 cm) (R); Pain 0/10; 23:45 BP 128 / 80; Pulse 71; Resp 18; Pulse Ox 97% on R/A; Pain 0/10; aa1 02/06 01:00 BP 120 / 85; Pulse 62; Resp 16; Pulse Ox 99% on R/A; Pain 0/10; aa1 02:17 BP 109 / 70; Pulse 55; Resp 16; Temp 98.5; Pulse Ox 97% on R/A; Pain 0/10; aa1 02/05 22:22 Body Mass Index 27.62 (89.81 kg, 180.34 cm) bb MDM: 02/05 23:24 Patient medically screened. 02/06 00:00 Differential diagnosis: dehydration, TIA, CVA, electrolyte abnormality, cardiac cp arrythmia. 02:05 Data reviewed: vital signs, nurses notes, old medical records, results of Carotid US, cp MRA head, echocardiogram and MRA neck performed 01-25-2019 during admission to [facility]. Results were normal lab test result(s), EKG, I have discussed the patient's presentation/case with the attending Emergency Department Physician; and as a result, I will discharge patient. 02:05 Counseling: I had a detailed discussion with the patient and/or guardian regarding: the cp historical points, exam findings, and any diagnostic results supporting the discharge/admit diagnosis, lab results, radiology results, the need for outpatient follow up, a family practitioner, to return to the emergency department if symptoms worsen or persist or if there are any questions or concerns that arise at home. 02/05 23:33 Order name: Basic Metabolic Panel; Complete Time: 01:08 cp 02/06 01:06 Interpretation: Normal except: BUN 20; GFR 58. cp 02/05 23:33 Order name: CBC with Diff; Complete Time: 01:08 cp 02/06 01:06 Interpretation: Normal except: HCT 39.1; PLT 167. cp 02/05 23:33 Order name: LFT's; Complete Time: 01:08 cp 02/06 01:06 Interpretation: Normal except: ALK 148; BILID 0.3; GLOB 3.6. cp 02/05 23:33 Order name: Magnesium; Complete Time: 01:08 cp 02/05 23:33 Order name: PT-INR; Complete Time: 01:08 cp 02/05 23:33 Order name: Troponin (emerg Dept Use Only); Complete Time: 01:08 cp 02/05 23:14 Order name: Visual Acuity; Complete Time: 00:29 cp 02/05 23:33 Order name: Orthostatics cp 02/05 23:33 Order name: EKG; Complete Time: 23:38 cp 02/05 23:33 Order name: Cardiac monitoring; Complete Time: 00:33 cp 02/05 23:33 Order name: Procalcitonin; Complete Time: 01:08 cp 02/05 23:33 Order name: Lactate; Complete Time: 01:08 cp 02/06 00:21 Order name: CT Head Brain wo Cont cp 02/05 23:33 Order name: EKG - Nurse/Tech; Complete Time: 00:29 cp 02/05 23:33 Order name: IV Saline Lock; Complete Time: 00:29 cp 02/05 23:33 Order name: Labs collected and sent; Complete Time: 00:29 cp 02/05 23:33 Order name: O2 Per Protocol; Complete Time: 00:33 cp 02/05 23:33 Order name: O2 Sat Monitoring; Complete Time: 00:34 cp EC:13 Rate is 51 beats/min. Rhythm is regular. HI interval is normal. QRS interval is cp prolonged at 116 msec. QT interval is normal. Interpreted by me. Reviewed by me. Administered Medications: 00:10 Drug: NS 0.9% 1000 ml Route: IV; Rate: 1 bolus; Site: left antecubital; aa1 01:00 Follow up: IV Status: Completed infusion; IV Intake: 1000ml aa1 Disposition: 02:30 Chart complete. cp 04:09 Co-signature as Attending Physician, Chas Edgar MD I agree with the assessment and tw4 plan of care. Disposition: 02/06/19 02:05 Discharged to Home. Impression: Weakness - general, Visual disturbances - blurry. - Condition is Stable. - Discharge Instructions: Blurred Vision, Adult, Weakness, Aspirin and Your Heart. - Medication Reconciliation Form, Thank You Letter, Antibiotic Education, Prescription Opioid Use form. - Follow up: Private Physician; When: 1 - 2 days; Reason: Recheck today's complaints. Follow up: Balaji Amos MD; When: 2 - 3 days; Reason: blurry vision. - Problem is new. - Symptoms have improved. - Notes: take a daily baby aspirin, 81 mg Signatures: Dispatcher [employer] EDMS Mayelin Bustos RN RN aa1 Micki Rockwell RN RN bb Ricardo Dewey PA PA Chas Cardozo MD MD tw4 Corrections: (The following items were deleted from the chart) 02:06 02:05 02/06/2019 02:05 Discharged to Home. Impression: Weakness - general; Visual cp disturbances - blurry. Condition is Stable. Forms are Medication Reconciliation Form, Thank You Letter, Antibiotic Education, Prescription Opioid Use. Follow up: Private Physician; When: 1 - 2 days; Reason: Recheck today's complaints. Problem is new. Symptoms have improved. cp 02:21 02:06 02/06/2019 02:05 Discharged to Home. Impression: Weakness - general; Visual aa1 disturbances - blurry. Condition is Stable. Discharge Instructions: Blurred Vision, Adult, Weakness, Aspirin and Your Heart. Forms are Medication Reconciliation Form, Thank You Letter, Antibiotic Education, Prescription Opioid Use. Follow up: Private Physician; When: 1 - 2 days; Reason: Recheck today's complaints. Follow up: Balaji Amos; When: 2 - 3 days; Reason: blurry vision. Problem is new. Symptoms have improved. cp
[2019-02-06 03:47] VITALS: BP 109/70; TEMP 98.5; O2SAT 97
--- NOTE | 2019-02-06 11:17 | RAD REPORT ---
EXAM DESCRIPTION: CT Head Without Intravenous Contrast CLINICAL HISTORY: The patient is 53 years old and is Male; blurry vision, general weakness TECHNIQUE: Axial computed tomography images of the head/brain without intravenous contrast. Sagitt al and coronal reformatted images were created and reviewed. This CT exam was performed using one o r more of the following dose reduction techniques: automated exposure control, adjustment of the mA and/or kV according to patient size, and/or use of iterative reconstruction technique. COMPARISON: No relevant prior studies available. FINDINGS: BRAIN: Unremarkable. The finney-white matter differentiation is preserved . No hemorrhag e. No significant white matter disease. No edema. No extra-axial fluid collections. VENTRICLES: Unremarkable. No ventriculomegaly. BONES/JOINTS: No acute fracture. SOFT TISSUES: Unremarkable. SINUSES: Unremarkable as visualized. No acute sinusitis. MASTOID AIR CELLS: Unremarkable as visualized. No mastoid effusion. IMPRESSION: No acute intracranial findings. Electronically signed by: Zamzam Duff MD 02/06/2019 1:38 AM CDT Due to temporary technical issues with the PACS/Fluency reporting system, reports are being signed by the in house radiologist as a courtesy to ensure prompt reporting. The interpreting radiologist is f ully responsible for the content of the report.
--- NOTE | 2019-02-06 13:36 | EKG ---
Test Date: 2019-02-06 Test Time: 00:12:19 [employer] [place]: ADELA MEASUREMENT RESULTS: Intervals: Rate: 51 IN: 172 QRSD: 116 QT: 430 QTc: 396 [place]: P: 50 IN: 172 QRS: -9 T: 40 INTERPRETIVE STATEMENTS: Sinus bradycardia Otherwise normal ECG Compared to ECG 01/25/2019 10:50:36 Sinus rhythm no longer present Sinus arrhythmia no longer present Electronically Signed On 02-06-19 13:34:09 CDT by Reji Mcclendon
== END 2019-02-06 02:21 | disposition home or self-care (01) ==
LOC: ER 21:49
DX: H53.8 Other visual disturbances (principal); R53.1 Weakness; E03.9 Hypothyroidism, unspecified; C67.9 Malignant neoplasm of bladder, unspecified; Z79.01 Long term (current) use of anticoagulants
CPT/HCPCS: 36415; 70450; 80048; 80076; 83605; 83735; 84145; 84484; 85025; 85610; 93005; 96360; 99284; J7030

== ENCOUNTER 2019-03-20 21:16 | Inpatient (IN) | payer BC ==
--- OUTSIDE RECORDS SUMMARY | 2019-03-20 21:20 | XMS REPORT | Clinical Summary ---
:1965 Author Organization [facility] Address [address] [place] [address] Care Team Providers Name Role Phone Kennedy Arias Dylan Primary Care Provider Allergies Active Allergy Reactions Severity Noted Date Comments Hydrocodone Itching 12/18/2018 Penicillins Rash Medium 12/18/2018 Medications Medication Sig Dispensed Refills Start End Date Status Date solifenacin Take 10 mg by 0 Active (VESICARE) 5 MG mouth daily. tablet promethazine Take 12.5 mg by 0 Active (PHENERGAN) 12.5 mouth every 6 MG tablet (six) hours as needed for Nausea. senna-docusate Take 1 tablet 0 02/21/20 Active (SENOKOT S) by mouth 2 9 20 8.6-50 mg per (two) times tablet daily. fLUoxetine Take 1 capsule 30 capsule 0 04/05/20 Active (PROZAC) 20 MG (20 mg total) 9 19 capsule by mouth daily for 30 days. apixaban Take 1 tablet 60 tablet 0 Active (ELIQUIS) 5 mg (5 mg total) by 9 Tab tablet mouth 2 (two) times daily. aspirin 81 MG Take 1 tablet 0 03/06/20 Active chewable tablet (81 mg total) 9 20 by mouth daily. atorvastatin Take 1 tablet 0 03/06/20 Active (LIPITOR) 80 MG (80 mg total) 9 20 tablet by mouth nightly. gabapentin Take 1 capsule 0 03/06/20 Active (NEURONTIN) 300 (300 mg total) 9 20 MG capsule by mouth nightly. levothyroxine Take 1 tablet 0 Active (SYNTHROID, (100 mcg total) 9 LEVOTHROID) 100 by mouth Every MCG tablet morning on an empty stomach. pantoprazole Take 1 tablet 0 Active (PROTONIX) 40 MG (40 mg total) 9 tablet by mouth daily. levothyroxine Take 100 mcg by 0 03/07/20 Discontinued (SYNTHROID, mouth Every 19 LEVOTHROID) 100 morning on an MCG tablet empty stomach. diazePAM (VALIUM) Take 5 mg by 0 02/22/20 Discontinued 5 MG tablet mouth as needed 19 for Anxiety. ondansetron Take by mouth 0 03/07/20 Discontinued (ZOFRAN) 8 MG every 8 (eight) 19 tablet hours as needed for Nausea. apixaban Take 1 tablet 60 tablet 0 03/07/20 Discontinued (ELIQUIS) 5 mg (5 mg total) by 9 19 Tab tablet mouth 2 (two) times daily. aspirin 81 MG Take 1 tablet 0 03/07/20 Discontinued chewable tablet (81 mg total) 9 19 by mouth daily. atorvastatin Take 1 tablet 0 03/07/20 Discontinued (LIPITOR) 80 MG (80 mg total) 9 19 tablet by mouth nightly. bisacodyl Place 1 12 suppository 0 03/06/20 Discontinued (DULCOLAX) 10 mg suppository (10 9 19 suppository mg total) rectally daily as needed for up to 10 days. fLUoxetine Take 1 capsule 30 capsule 0 03/06/20 Discontinued (PROZAC) 20 MG (20 mg total) 9 19 capsule by mouth daily. gabapentin Take 1 capsule 0 03/07/20 Discontinued (NEURONTIN) 300 (300 mg total) 9 19 MG capsule by mouth nightly. pantoprazole Take 1 tablet 0 03/07/20 Discontinued (PROTONIX) 40 MG (40 mg total) 9 19 tablet by mouth daily. apixaban Take 1 tablet 60 tablet 0 03/07/20 Discontinued (ELIQUIS) 5 mg (5 mg total) by 9 19 Tab tablet mouth 2 (two) times daily for 30 days. aspirin 81 MG Take 1 tablet 30 tablet 0 03/07/20 Discontinued chewable tablet (81 mg total) 9 19 by mouth daily for 30 days. atorvastatin Take 1 tablet 30 tablet 0 03/07/20 Discontinued (LIPITOR) 80 MG (80 mg total) 9 19 tablet by mouth nightly for 30 days. gabapentin Take 1 capsule 30 capsule 0 03/07/20 Discontinued (NEURONTIN) 300 (300 mg total) 9 19 MG capsule by mouth nightly for 30 days. levothyroxine Take 1 tablet 30 tablet 0 03/07/20 Discontinued (SYNTHROID, (100 mcg total) 9 19 LEVOTHROID) 100 by mouth Every MCG tablet morning on an empty stomach for 30 days. pantoprazole Take 1 tablet 30 tablet 0 03/07/20 Discontinued (PROTONIX) 40 MG (40 mg total) 9 19 tablet by mouth daily for 30 days. senna-docusate Take 1 tablet 60 tablet 0 03/07/20 Discontinued (SENOKOT S) by mouth 2 9 19 8.6-50 mg per (two) times tablet daily for 30 days. fLUoxetine Take 1 capsule 30 capsule 11 03/07/20 Discontinued (PROZAC) 20 MG (20 mg total) 9 19 capsule by mouth daily. Active Problems Problem Noted Date Impaired mobility and ADLs 02/21/2019 Urinary incontinence due to urethral sphincter incompetence 02/21/2019 Hypotension due to hypovolemia 02/15/2019 Acute ischemic cerebrovascular accident (CVA) involving right middle 2018 cerebral artery territory Bladder cancer 01/02/2018 Malignant neoplasm of urinary bladder 07/25/2017 Encounters Date Type Specialty Care Team Description 02/21/2019 [facility] Physical Medicine Fredy Lieberman MD H/O ischemic right MCA stroke; - Encounter and Rehabilitation Malignant neoplasm of lateral wall of urinary bladder (HCC); 03/07/2019 Impaired mobility and ADLs; Urinary incontinence due to urethral sphincter incompetence; Spastic hemiparesis (HCC); Bradycardia; Urine abnormality; Acute ischemic cerebrovascular accident (CVA) involving right middle cerebral artery territory (HCC); Cognitive impairment; Urinary tract infection without hematuria, site unspecified 02/21/2019 Travel 02/15/2019 Travel 02/14/2019 Anesthesia Event Pedro Richard CRNA 02/14/2019 Surgery Jerry, PROCEDURE DONE OUTSIDE Anupam OR MD Guille 02/14/2019 [facility] General Internal Ofordeme, Acute ischemic cerebrovascular accident (CVA) involving right middle cerebral artery territory (HCC) (Primary Dx); - Encounter Medicine Raphaelandresukyordy Hypotension due to hypovolemia; 02/21/2019 MD Brett Malignant neoplasm of urinary bladder, unspecified site (HCC); Bennett Pickett Malignant neoplasm of lateral wall of urinary bladder (HCC ); MD Mary Anne Malignant neoplasm of posterior wall of urinary bladder (HCC); Almas Alva Thrombocytopenia (HCC); MD Mariaa Impaired mobility and ADLs; Mary Ann Vitale Generalized weakness; D Abnormal gait 02/14/2019 Orders Only General Internal Medicine 02/07/2019 Outside Orders Central Scheduling Fernandez Myrick Malignant neoplasm of MD Breanna urinary bladder, unspecified site (HCC) (Primary Dx) 11/14/2018 Hospital Computed Tomography Fernandez Myrick Malignant neoplasm of Encounter MD Breanna urinary bladder, 1, [facility] Dandre unspecified site (HCC) Ct Room 11/14/2018 Hospital Computed Tomography Fernandez Myrick Malignant neoplasm of Encounter MD Breanna urinary bladder, 1, [facility] Dandre unspecified site (HCC) Ct Room 11/03/2018 Outside Orders Central Scheduling Fernandez Myrick Malignant neoplasm of MD Breanna urinary bladder, unspecified site (HCC) (Primary Dx) after 03/19/2018 Social History Tobacco Use Types Packs/Day Years [...] Vital Sign Reading Time Taken Blood Pressure 113/74 03/07/2019 5:42 AM CDT Pulse 56 03/07/2019 5:42 AM CDT Temperature 36.2 C (97.2 F) 03/07/2019 5:42 AM CDT Respiratory Rate 18 03/07/2019 5:42 AM CDT Oxygen Saturation 95% 03/07/2019 5:42 AM CDT Inhaled Oxygen Concentration - - Weight 81.7 kg (180 lb 1.9 oz) 02/25/2019 2:17 PM CDT Height 180.3 cm (5' 11") 02/21/2019 3:38 PM CDT Body Mass Index 25.12 02/25/2019 2:17 PM CDT Plan of Treatment Not on file Implants Implanted Type Area Cookie Mixer Helper Device Shelf Model / Serial Identifier Expiration / Lot Date Cath Exp Silv Soak Log Haul Chain Feeder 12.5cmx [id number] - [id number] Pain RAKEL-MADISON 03/08/2020 [id number] / Implanted: Qty: 1 on 01/02/2018 by Danny Vaughn MD Mgmt/Stim / ulator [id number] Cath Exp Silv Soak Log Haul Chain Feeder 12.5cmx [id number] - [id number] Pain RAKEL-MADISON 12/15/2019 [id number] / Implanted: Qty: 1 on 01/02/2018 by Danny Vaughn MD Mgmt/Stim / ulator [id number] Stent,Uret Claims Adjuster Supervisor Diversion 8.4fr Left - [id number] Uro Stent COOK UROLOGICAL 08/08/2018 [id number] / Implanted: Qty: 1 on 01/02/2018 by Danny Vaughn MD / [id number] Stent Claims Adjuster Supervisor Uret 8.5qgs98md R [id number] - [id number] Uro Stent COOK:UROLOGY 08/08/2018 [id number] / Implanted: Qty: 1 on 01/02/2018 by Danny Vaughn MD / [id number] Procedures Procedure Name Priority Date/Time Associated Comments Diagnosis POTASSIUM Routine 03/07/2019 5:48 Results for this AM CDT procedure are in the results section. CBC W/PLT COUNT & AUTO Routine 03/05/2019 5:19 Results for this DIFFERENTIAL AM CDT procedure are in the results section. CBC W/PLT COUNT & AUTO Routine 03/05/2019 5:19 Results for this DIFFERENTIAL AM CDT procedure are in the results section. BASIC METABOLIC PANEL Routine 03/05/2019 5:19 Results for this (7) AM CDT procedure are in the results section. CBC W/PLT COUNT & AUTO Routine 03/01/2019 4:23 Results for this DIFFERENTIAL AM CDT procedure are in the results section. BASIC METABOLIC PANEL Routine 03/01/2019 4:23 Results for this (7) AM CDT procedure are in the results section. CBC W/PLT COUNT & AUTO Routine 03/01/2019 4:23 Results for this DIFFERENTIAL AM CDT procedure are in the results section. URINALYSIS W/ REFLEX Routine 02/26/2019 2:38 Results for this URINE CULTURE PM CDT procedure are in the results section. URINE CULTURE Routine 02/26/2019 2:38 Results for this PM CDT procedure are in the results section. CBC W/PLT COUNT & AUTO Routine 02/26/2019 4:42 Results for this DIFFERENTIAL AM CDT procedure are in the results section. CBC W/PLT COUNT & AUTO Routine 02/26/2019 4:42 Results for this DIFFERENTIAL AM CDT procedure are in the results section. BASIC METABOLIC PANEL Routine 02/26/2019 4:42 Results for this (7) AM CDT procedure are in the results section. URINALYSIS MICROSCOPIC Routine 02/25/2019 1:13 Results for this PM CDT procedure are in the results section. URINALYSIS WITH Routine 02/25/2019 1:13 Results for this MICROSCOPIC IF PM CDT procedure are in INDICATED the results section. XR ABDOMEN 1 VIEW STAT 02/24/2019 9:55 Results for this PM CDT procedure are in the results section. ECHOCARDIOGRAM REPORT - 02/22/2019 9:24 SCAN PM CDT RHYTHM STRIP - SCAN 02/22/2019 11:51 AM CDT REPORT OF PROCEDURE - 02/22/2019 11:51 ENDOSCOPY SCAN AM CDT ECG 12-LEAD Routine 02/22/2019 9:24 AM CDT Procedure Note - Interface, External Ris In - 02/22/2019 9:25 AM CDT Ventricular Rate 57 BPM Atrial Rate 57 BPM P-R Interval 162 ms QRS Duration 106 ms Q-T Interval 440 ms QTC Calculation(Bazett) 428 ms P [place] 45 degrees R [place] 67 degrees T [place] 39 degrees Sinus bradycardia Otherwise normal ECG When compared with ECG of 21-FEB-2019 16:32, No significant change was found ECG 12-LEAD Routine 02/22/2019 9:24 AM CDT CBC W/PLT COUNT & AUTO Routine 02/22/2019 5:14 AM CDT Results for this DIFFERENTIAL procedure are in the results section. CBC W/PLT COUNT & AUTO Routine 02/22/2019 5:14 AM CDT Results for this DIFFERENTIAL procedure are in the results section. COMPREHENSIVE METABOLIC Routine 02/22/2019 5:14 AM CDT Results for this PANEL procedure are in the results section. ECG 12-LEAD Routine 02/21/2019 4:32 PM CDT ECG 12-LEAD Routine 02/21/2019 4:32 PM CDT Procedure Note - Interface, External Ris In - 02/21/2019 4:34 PM CDT Ventricular Rate 42 BPM Atrial Rate 42 BPM P-R Interval 158 ms QRS Duration 112 ms Q-T Interval 476 ms QTC Calculation(Bazett) 397 ms P [place] 47 degrees R [place] 26 degrees T [place] 37 degrees Marked sinus bradycardia Abnormal ECG When compared with ECG of 20-FEB-2019 12:19, No significant change was found CBC W/PLT COUNT & AUTO Routine 02/21/2019 5:02 AM CDT Results for this DIFFERENTIAL procedure are in the results section. PHOSPHORUS Routine 02/21/2019 5:02 AM CDT MAGNESIUM Routine 02/21/2019 5:02 AM CDT CBC W/PLT COUNT & AUTO Routine 02/21/2019 5:02 AM CDT Results for this DIFFERENTIAL procedure are in the results section. BASIC METABOLIC PANEL (7) Routine 02/21/2019 5:02 AM CDT ECG 12-LEAD Routine 02/20/2019 12:19 PM CDT Procedure Note - Interface, External Ris In - 02/20/2019 12:21 PM CDT Ventricular Rate 50 BPM Atrial Rate 50 BPM P-R Interval 162 ms QRS Duration 104 ms Q-T Interval 474 ms QTC Calculation(Bazett) 432 ms P [place] 40 degrees R [place] 5 degrees T [place] 26 degrees Sinus bradycardia with sinus arrhythmia Otherwise normal ECG When compared with ECG of 15-FEB-2019 20:50, No significant change was found ECG 12-LEAD Routine 02/20/2019 12:19 PM CDT CBC W/PLT COUNT & AUTO Routine 02/20/2019 4:06 AM CDT Results for this DIFFERENTIAL procedure are in the results section. PHOSPHORUS Routine 02/20/2019 4:06 AM CDT MAGNESIUM Routine 02/20/2019 4:06 AM CDT CBC W/PLT COUNT & AUTO Routine 02/20/2019 4:06 AM CDT Results for this DIFFERENTIAL procedure are in the results section. BASIC METABOLIC PANEL (7) Routine 02/20/2019 4:06 AM CDT CBC W/PLT COUNT & AUTO Routine 02/19/2019 7:50 AM CDT Results for this DIFFERENTIAL procedure are in the results section. PHOSPHORUS Routine 02/19/2019 7:50 AM CDT MAGNESIUM Routine 02/19/2019 7:50 AM CDT CBC W/PLT COUNT & AUTO Routine 02/19/2019 7:50 AM CDT Results for this DIFFERENTIAL procedure are in the results section. BASIC METABOLIC PANEL (7) Routine 02/19/2019 7:[address] ABDOMEN/PELVIS WITH IV Routine 02/17/2019 11:55 PM CDT Results for this CONTRAST procedure are in the results section. CT CHEST WITH IV CONTRAST Routine 02/17/2019 11:55 PM CDT POCT-GLUCOSE METER Routine 02/17/2019 12:19 PM CDT POCT-GLUCOSE METER Routine 02/17/2019 6:08 AM CDT CBC W/PLT COUNT & AUTO Routine 02/17/2019 4:06 AM CDT Results for this DIFFERENTIAL procedure are in the results section. PHOSPHORUS Routine 02/17/2019 4:06 AM CDT MAGNESIUM Routine 02/17/2019 4:06 AM CDT LACTIC ACID, VENOUS Routine 02/17/2019 4:06 AM CDT CBC W/PLT COUNT & AUTO Routine 02/17/2019 4:06 AM CDT Results for this DIFFERENTIAL procedure are in the results section. BASIC METABOLIC PANEL (7) Routine 02/17/2019 4:06 AM CDT TROPONIN I Routine 02/17/2019 4:06 AM CDT POCT-GLUCOSE METER Routine 02/17/2019 12:13 AM CDT PERIPHERAL VASCULAR REPORT 02/16/2019 9:21 PM CDT - SCAN FIBRINOGEN Routine 02/16/2019 5:41 PM CDT TROPONIN I Routine 02/16/2019 5:41 PM CDT 2D ECHO W/ DOPPLER Routine 02/16/2019 5:17 PM CDT Results for this (CW/PW/COLOR) procedure are in the results section. POCT-GLUCOSE METER Routine 02/16/2019 5:09 PM CDT MAGNESIUM Routine 02/16/2019 3:27 PM CDT TROPONIN I Routine 02/16/2019 12:32 PM CDT POCT-GLUCOSE METER Routine 02/16/2019 12:03 PM CDT XR CHEST 1 VIEW Routine 02/16/2019 8:53 AM CDT Results for this PORTABLE/BEDSIDE procedure are in the results section. POCT-GLUCOSE METER Routine 02/16/2019 5:55 AM CDT CBC W/PLT COUNT & AUTO Routine 02/16/2019 2:57 AM CDT Results for this DIFFERENTIAL procedure are in the results section. PERIPHERAL BLOOD SMEAR - Routine 02/16/2019 2:57 AM CDT Results for this HOLD ONLY procedure are in the results section. VANCOMYCIN LEVEL, TROUGH Timed 02/16/2019 2:57 AM CDT PHOSPHORUS Routine 02/16/2019 2:57 AM CDT MAGNESIUM Routine 02/16/2019 2:57 AM CDT LACTIC ACID, VENOUS Routine 02/16/2019 2:57 AM CDT CBC W/PLT COUNT & AUTO Routine 02/16/2019 2:57 AM CDT Results for this DIFFERENTIAL procedure are in the results section. BASIC METABOLIC PANEL (7) Routine 02/16/2019 2:57 AM CDT POTASSIUM Routine 02/16/2019 12:26 AM CDT TROPONIN I Routine 02/16/2019 12:26 AM CDT POCT-GLUCOSE METER Routine 02/16/2019 12:12 AM CDT ECG 12-LEAD Routine 02/15/2019 8:50 PM CDT Procedure Note - Interface, External Ris In - 02/15/2019 8:53 PM CDT Ventricular Rate 52 BPM Atrial Rate 52 BPM P-R Interval 150 ms QRS Duration 114 ms Q-T Interval 430 ms QTC Calculation(Bazett) 399 ms P [place] 45 degrees R [place] 10 degrees T [place] 22 degrees Sinus bradycardia Otherwise normal ECG When compared with ECG of 15-FEB-2019 02:33, No significant change was found ECG 12-LEAD Routine 02/15/2019 8:50 PM CDT POTASSIUM Routine 02/15/2019 6:35 PM CDT TROPONIN I Routine 02/15/2019 6:35 PM CDT POCT-GLUCOSE METER Routine 02/15/2019 6:34 PM CDT MR BRAIN WITHOUT IV CONTRAST Routine 02/15/2019 6:00 PM CDT VENOUS DOPPLER LEGS Routine 02/15/2019 1:14 PM CDT Results for this BILATERAL procedure are in the results section. POCT-GLUCOSE METER Routine 02/15/2019 12:31 PM CDT (MANUAL DIFFERENTIAL) Routine 02/15/2019 11:09 AM CDT CBC WITH PLATELET COUNT + Routine 02/15/2019 11:09 AM CDT Results for this MANUAL DIFF procedure are in the results section. PERIPHERAL BLOOD SMEAR - Routine 02/15/2019 11:09 AM CDT Results for this PATHOLOGIST REVIEW procedure are in the results section. CBC W/PLT+MANUAL DIFF Routine 02/15/2019 11:09 AM CDT URINALYSIS W/ REFLEX URINE Routine 02/15/2019 9:37 AM CDT Results for this CULTURE procedure are in the results section. URINALYSIS W/ MICROSCOPIC STAT 02/15/2019 9:37 AM CDT URINE CULTURE Routine 02/15/2019 9:37 AM CDT LACTIC ACID, VENOUS STAT 02/15/2019 8:09 AM CDT TROPONIN I Routine 02/15/2019 8:09 AM CDT POCT-GLUCOSE METER Routine 02/15/2019 6:01 AM CDT LACTIC ACID, VENOUS STAT 02/15/2019 5:55 AM CDT XR CHEST 1 VIEW Routine 02/15/2019 4:18 AM CDT Results for this PORTABLE/BEDSIDE procedure are in the results section. LACTIC ACID, VENOUS Routine 02/15/2019 2:53 AM CDT PROCALCITONIN Routine 02/15/2019 2:53 AM CDT VITAMIN B12 AND FOLATE Routine 02/15/2019 2:53 AM CDT TSH/FREE T4 IF INDICATED Routine 02/15/2019 2:53 AM CDT RPR Routine 02/15/2019 2:53 AM CDT HEMOGLOBIN A1C Routine 02/15/2019 2:53 AM CDT BLOOD CULTURE Routine 02/15/2019 2:52 AM CDT BLOOD CULTURE Routine 02/15/2019 2:52 AM CDT ECG 12-LEAD Routine 02/15/2019 2:33 AM CDT ECG 12-LEAD Routine 02/15/2019 2:33 AM CDT Procedure Note - Interface, External Ris In - 02/15/2019 8:53 PM CDT Ventricular Rate 70 BPM Atrial Rate 70 BPM P-R Interval 164 ms QRS Duration 118 ms Q-T Interval 376 ms QTC Calculation(Bazett) 406 ms P [place] 49 degrees R [place] 17 degrees T [place] 29 degrees Normal sinus rhythm with sinus arrhythmia Non-specific intra-ventricular conduction delay Borderline ECG When compared with ECG of 14-FEB-2019 18:09, No significant change was found ECG 12-LEAD Routine 02/15/2019 2:33 AM CDT ECG 12-LEAD Routine 02/15/2019 2:33 AM CDT Procedure Note - Interface, External Ris In - 02/15/2019 8:54 PM CDT Ventricular Rate 68 BPM Atrial Rate 68 BPM P-R Interval 168 ms QRS Duration 118 ms Q-T Interval 398 ms QTC Calculation(Bazett) 423 ms P [place] 58 degrees R [place] 18 degrees T [place] 39 degrees Normal sinus rhythm Non-specific intra-ventricular conduction delay Borderline ECG When compared with ECG of 14-FEB-2019 18:09, No significant change was found (CELLAVISION MANUAL Routine 02/15/2019 12:47 Results for this DIFF) AM CDT procedure are in the results section. CBC W/PLT COUNT & AUTO Routine 02/15/2019 12:47 Results for this DIFFERENTIAL AM CDT procedure are in the results section. CBC W/PLT COUNT & AUTO Routine 02/15/2019 12:47 Results for this DIFFERENTIAL AM CDT procedure are in the results section. BASIC METABOLIC PANEL Routine 02/15/2019 12:46 Results for this (7) AM CDT procedure are in the results section. TROPONIN I Routine 02/15/2019 12:46 Results for this AM CDT procedure are in the results section. LIPID PANEL Routine 02/15/2019 12:46 Results for this AM CDT procedure are in the results section. HEPATIC FUNCTION PANEL Routine 02/15/2019 12:46 Results for this AM CDT procedure are in the results section. NV CEREBRAL 4 VESSEL STAT 02/14/2019 9:49 Results for this ANGIOGRAM PM CDT procedure are in the results section. PROCEDURE DONE OUTSIDE 02/14/2019 7:30 Cerebrovascular OR PM CDT accident (CVA), unspecified mechanism (HCC) ECG 12-LEAD STAT 02/14/2019 6:09 Results for this PM CDT procedure are in the results section. XR CHEST PA OR AP 1 STAT 02/14/2019 6:08 Results for this VIEW IN DEPT. PM CDT procedure are in the results section. CBC W/PLT COUNT & AUTO STAT 02/14/2019 5:56 Results for this DIFFERENTIAL PM CDT procedure are in the results section. TROPONIN I STAT 02/14/2019 5:56 Results for this PM CDT procedure are in the results section. PT/APTT STAT 02/14/2019 5:56 Results for this PM CDT procedure are in the results section. CBC W/PLT COUNT & AUTO STAT 02/14/2019 5:56 Results for this DIFFERENTIAL PM CDT procedure are in the results section. BASIC METABOLIC PANEL STAT 02/14/2019 5:56 Results for this (7) PM CDT procedure are in the results section. POCT-GLUCOSE METER Routine 02/14/2019 5:54 Results for this PM CDT procedure are in the results section. CRITICAL CARE Routine 02/14/2019 5:51 Results for this PM CDT procedure are in the results section. CT/CTA CAROTID STAT 02/14/2019 5:25 Results for this PM CDT procedure are in the results section. CT/CTA BRAIN STAT 02/14/2019 5:25 Results for this PM CDT procedure are in the results section. CT BRAIN/STROKE TEST STAT 02/14/2019 5:25 Results for this DESIGN PM CDT procedure are in the results section. CT ABDOMEN/PELVIS WITH Routine 11/14/2018 4:35 Malignant neoplasm of Results for this IV CONTRAST PM CDT urinary bladder, procedure are in unspecified site (HCC) the results section. CT CHEST WITH IV Routine 11/14/2018 4:35 Malignant neoplasm of Results for this CONTRAST PM CDT urinary bladder, procedure are in unspecified site (HCC) the results section. POCT-CREATININE Routine 11/14/2018 4:27 Results for this PM CDT procedure are in the results section. INTRAOPERATIVE PATH 10/20/2018 10:00 REPORT - SCAN AM CDT INTRAOPERATIVE PATH 10/20/2018 10:00 REPORT - SCAN AM CDT INTRAOPERATIVE PATH 10/20/2018 10:00 REPORT - SCAN AM CDT INTRAOPERATIVE PATH 10/20/2018 10:00 REPORT - SCAN AM CDT after 03/19/2018 Results Potassium (03/07/2019 5:48 AM CDT)Only the most recent of3 resultswithin the time period is included. Potassium 3.8Comment: Specimen slightly 3.5 - 5.1 meq/L [facility] hemolyzed Specimen Blood Performing Organization Address City/State/Zipcode Phone Number [facility] [address] [place] [address] CBC with platelet count + automated diff (03/05/2019 5:19 AM CDT)Only the most recent of11 resultswithin the time period is included. WBC 7.3 3.5 - 10.5 K/L [facility] RBC 4.13 (L) 4.63 - 6.08 M/L [facility] Hemoglobin 12.7 (L) 13.7 - 17.5 GM/DL [facility] Hematocrit 36.7 (L) 40.1 - 51.0 % [facility] MCV 88.9 79.0 - 92.2 fL [facility] MCH 30.8 25.7 - 32.2 pg [facility] MCHC 34.6 32.3 - 36.5 GM/DL [facility] RDW 13.3 11.6 - 14.4 % [facility] Platelets 195 150 - 450 K/CU MM [facility] MPV 9.6 9.4 - 12.4 fL [facility] % Neutros 54 % [facility] % Lymphs 27 % [facility] % Monos 13 % [facility] % Eos 6 % [facility] % Baso 1 % [facility] # Neutros 3.93 1.78 - 5.38 K/L [facility] # Lymphs 1.94 1.32 - 3.57 K/L [facility] # Monos 0.91 (H) 0.30 - 0.82 K/L [facility] # Eos 0.41 0.04 - 0.54 K/L [facility] # Baso 0.08 0.01 - 0.08 K/L [facility] Immature Granulocytes-Relative 0 0 - 1 % [facility] Specimen Blood Performing Organization Address City/[facility]/Zipcode Phone Number [facility] [address] [place] [address] Basic Metabolic Panel (03/05/2019 5:19 AM CDT)Only the most recent of10 resultswithin the time period is included. Sodium 140 136 - 145 meq/L [facility] Potassium 3.4 (L) 3.5 - 5.1 meq/L [facility] Chloride 105 98 - 107 meq/L [facility] CO2 26 22 - 29 meq/L [facility] BUN 21 7 - 21 mg/dL [facility] Creatinine 1.23 0.57 - 1.25 mg/dL [facility] Glucose 93 70 - 105 mg/dL [facility] Calcium 9.2 8.4 - 10.2 mg/dL [facility] EGFR 62Comment: ESTIMATED GFR IS mL/min/1.[address] [facility] - NOT ACCURATE CREATININE DANDRE CLEARANCE IN PREDICTING GLOMERULAR FILTRATION RATE. ESTIMATED GFR IS NOT APPLICABLE FOR DIALYSIS PATIENTS. Specimen Blood Performing Organization Address [facility] Phone Number [facility] [address] [place] [address] Urinalysis w/Microscopic + Reflex to Culture (02/26/2019 2:38 PM CDT)Only the most recent of2 resultswithin the time period is included. Color, UA Yellow [facility] Clarity, UA Slightly Cloudy [facility] Specific [place], UA 1.015 1.005 - 1.030 [facility] pH, UA 6.0 5.0 - 9.0 [facility] Protein, UA 30 mg/dL (A) Negative [facility] Glucose, UA Negative Negative [facility] Ketones, UA Negative Negative [facility] Bilirubin, UA Negative Negative [facility] Blood, UA Large (A) Negative [facility] Nitrite, UA Negative Negative [facility] Leukocytes, UA Large (A) Negative [facility] Urobilinogen, UA 0.2 0.2 - 1.0 mg/dL [facility] Bacteria, UA Many [facility] RBC, UA 20-50 /HPF [facility] WBC, UA >100 /HPF [facility] SQUAMOUS EPITHELIAL <5 /HPF [facility] Specimen Source [facility] Specimen Urine - Urine, Straight Catheter Performing Organization Address [facility] Phone Number [facility] [address] [place] [address] Urine culture (02/26/2019 2:38 PM CDT)Only the most recent of2 resultswithin the time period is included. Result >100,000 col/mL Klebsiella [facility] pneumoniae ssp pneumoniae (A) CENTER Specimen Urine - Urine, Straight Catheter Organism Antibiotic Method Susceptibility Klebsiella pneumoniae ssp Amikacin <=2: Susceptible pneumoniae Klebsiella pneumoniae ssp Ampicillin + Sulbactam 16: Resistant pneumoniae Klebsiella pneumoniae ssp Aztreonam <=1: Susceptible pneumoniae Klebsiella pneumoniae ssp Cefepime <=1: Susceptible pneumoniae Klebsiella pneumoniae ssp Cefoxitin 16: Resistant pneumoniae Klebsiella pneumoniae ssp Ceftazidime <=1: Susceptible pneumoniae Klebsiella pneumoniae ssp Ceftriaxone <=1: Susceptible pneumoniae Klebsiella pneumoniae ssp Ertapenem <=0.5: Susceptible pneumoniae Klebsiella pneumoniae ssp Gentamicin <=1: Susceptible pneumoniae Klebsiella pneumoniae ssp Levofloxacin 1: Resistant pneumoniae Klebsiella pneumoniae ssp Meropenem <=0.25: Susceptible pneumoniae Klebsiella pneumoniae ssp Nitrofurantoin 64: Intermediate pneumoniae Klebsiella pneumoniae ssp Piperacillin + Tazobactam 16: Susceptible pneumoniae Klebsiella pneumoniae ssp Tetracycline >=16: Resistant pneumoniae Klebsiella pneumoniae ssp Tobramycin <=1: Susceptible pneumoniae Klebsiella pneumoniae ssp Trimethoprim + Sulfamethoxazole <=20: Susceptible pneumoniae Performing Organization Address City/[facility] Phone Number [facility] [address] [place] [address] [phone] CENTER Urinalysis Microscopic Only (02/25/2019 1:13 PM CDT) RBC, UA 20 /HPF [facility] WBC, UA >100 /HPF [facility] Bacteria, UA Many [facility] Squam Epithel, UA <5 /HPF [facility] Specimen Urine Performing Organization Address [facility] Phone Number [facility] [address] [place] [address] Urinalysis with Microscopic If Indicated (02/25/2019 1:13 PM CDT) Color, UA Yellow [facility] Clarity, UA Cloudy [facility] Specific [place], UA 1.015 1.005 - 1.030 [facility] pH, UA 6.5 5.0 - 9.0 [facility] Protein, UA 100 mg/dL (A) Negative [facility] Glucose, UA Negative Negative [facility] Ketones, UA Negative Negative [facility] Bilirubin, UA Negative Negative [facility] Blood, UA Large (A) Negative [facility] Nitrite, UA Negative Negative [facility] Leukocytes, UA Moderate (A) Negative [facility] Urobilinogen, UA 0.2 0.2 - 1.0 mg/dL [facility] Specimen Source [facility] Specimen Urine Performing Organization Address [facility] Phone Number [facility] [address] [place] [address] XR abdomen / KUB 1 view (02/24/2019 9:55 PM CDT) Specimen Narrative Performed At FINAL REPORT [facility] CLINICAL HISTORY: Back pain and constipation COMPARISON: None. FINDINGS: A single supine view views of the abdomen is submitted. The abdominal bowel gas pattern is unobstructed. There is no focus of dilated large or small bowel. The fecal burden is normal. There is no evidence of organomegaly or significant ascites. Multiple surgical clips overlie the lower abdomen and pelvis. There is no acute bony abnormality. Signed: Danny Mccurdy MD Report Verified Date/Time:02/24/2019 22:26:00 Reading Location: [address] Reading Room Procedure Note Interface, External Ris In - 02/24/2019 10:28 PM CDT FINAL REPORT CLINICAL HISTORY: Back pain and constipation COMPARISON: None. FINDINGS: A single supine view views of the abdomen is submitted. The abdominal bowel gas pattern is unobstructed. There is no focus of dilated large or small bowel. The fecal burden is normal. There is no evidence of organomegaly or significant ascites. Multiple surgical clips overlie the lower abdomen and pelvis. There is no acute bony abnormality. Signed: Danny Mccurdy MD Report Verified Date/Time: 02/24/2019 22:26:00 Reading Location: [address] Reading Room Performing Organization Address City/State/Zipcode Phone Number [facility] RIS ECHOCARDIOGRAM REPORT - SCAN (02/22/2019 9:24 PM CDT) Narrative Performed At RHYTHM STRIP - SCAN (02/22/2019 11:51 AM CDT) Narrative Performed At EKG-SCANNED (02/22/2019 11:51 AM CDT) Narrative Performed At ECG 12 lead (02/22/2019 9:24 AM CDT)Only the most recent of7 resultswithin the time period is included. Specimen Narrative Performed At Ventricular Rate 57 BPM GE MUSE Atrial Rate 57 BPM P-R Interval 162 ms QRS Duration 106 ms Q-T Interval 440 ms QTC Calculation(Bazett) 428 ms P [place] 45 degrees R [place] 67 degrees T [place] 39 degrees Sinus bradycardia Otherwise normal ECG When compared with ECG of 21-FEB-2019 16:32, No significant change was found Confirmed by MD Gentile Roberto ([id number]) on 02/22/2019 2:29:26 PM Procedure Note Interface, External Ris In - 02/22/2019 2:29 PM CDT Ventricular Rate 57 BPM Atrial Rate 57 BPM P-R Interval 162 ms QRS Duration 106 ms Q-T Interval 440 ms QTC Calculation(Bazett) 428 ms P [place] 45 degrees R [place] 67 degrees T [place] 39 degrees Sinus bradycardia Otherwise normal ECG When compared with ECG of 21-FEB-2019 16:32, No significant change was found Confirmed by MD Gentile Roberto ([id number]) on 02/22/2019 2:29:26 PM Performing Organization Address City/State/Zipcode Phone Number GE MUSE Comprehensive metabolic panel (02/22/2019 5:14 AM CDT) Protein, Total 6.4 6.0 - 8.3 gm/dL [facility] Albumin 4.0 3.5 - 5.0 g/dL [facility] Alkaline Phosphatase 110 40 - 150 U/L [facility] Total Bilirubin 1.4 (H) 0.2 - 1.2 mg/dL [facility] Sodium 142 136 - 145 meq/L [facility] Potassium 3.6 3.5 - 5.1 meq/L [facility] Chloride 104 98 - 107 meq/L [facility] CO2 29 22 - 29 meq/L [facility] BUN 14 7 - 21 mg/dL [facility] Creatinine 1.11 0.57 - 1.25 mg/dL [facility] Glucose 86 70 - 105 mg/dL [facility] Calcium 8.7 8.4 - 10.2 mg/dL [facility] AST 47 (H) 5 - 34 U/L [facility] ALT 35 6 - 55 U/L [facility] EGFR 70Comment: ESTIMATED GFR mL/min/1.[address] [facility] CREATININE CLEARANCE IN PREDICTING GLOMERULAR FILTRATION RATE. ESTIMATED GFR IS NOT APPLICABLE FOR DIALYSIS PATIENTS. Specimen Blood Performing Organization Address City/[facility]/Zipcode Phone Number [facility] [address] [place] [address] Phosphorus (02/21/2019 5:02 AM CDT)Only the most recent of5 resultswithin the time period is included. Phosphorus 4.1 2.3 - 4.7 mg/dL [facility] Specimen Blood Performing Organization Address City/[facility] Phone Number [facility] [address] [place] [address] CENTER Magnesium (02/21/2019 5:02 AM CDT)Only the most recent of6 resultswithin the time period is included. Magnesium 2.1 1.6 - 2.6 mg/dL [facility] Specimen Blood Performing Organization Address [facility] Phone Number [facility] [address] [place] [phone] abdomen/pelvis with IV contrast (02/17/2019 11:55 PM CDT)Only the most recent of2 resultswithin the time period is included. Specimen Narrative Performed At FINAL REPORT [facility] CT Chest, abdomen, and pelvis with contrast History: Bladder cancer Comparison: 11/14/2018 Technique: serial axial imaging was performed following up to 100cc of non ionic iodinated intravenous contrast as per departmental protocol.Multiplanar images are reconstructed and reviewed when indicated. This CT examination is performed using one or more of the following dose reduction techniques: Automated exposure control, adjustment of the mA and /or kV according to patient size, and/or use of iterative reconstruction technique. Findings: No mediastinal or hilar lymphadenopathy. Normal size heart.No pericardial effusion. No thoracic aortic aneurysm or dissection.No central pulmonary arterial filling defect. Patent central airways.No pleural effusion or pneumothorax.Clear lungs. Unremarkable appearance of pancreas and spleen. Unremarkable appearance of liver and gallbladder. Unremarkable appearance of the adrenal glands and kidneys. The patient is status post radical cystectomy with bladder reconstruction. . No small or large bowel obstruction.No apparent bowel wall thickening.No findings to indicate acute appendicitis. No free fluid or lymphadenopathy. No abdominal aortic aneurysm. Stable fat-containing ventral hernia. No aggressive osseous lesion. Chronic fractures of the left scapula and left posterior third through seventh ribs. Impression: No evidence of metastatic disease in the chest, abdomen, or pelvis. Signed: Adan Talley MD Report Verified Date/Time:02/18/2019 09:37:19 Reading Location: [facility] [id number] Ortho Consult Reading Room Procedure Note Interface, External Ris In - 02/18/2019 9:39 AM CDT FINAL REPORT CT Chest, abdomen, and pelvis with contrast History: Bladder cancer Comparison: 11/14/2018 Technique: serial axial imaging was performed following up to 100cc of non ionic iodinated intravenous contrast as per departmental protocol. Multiplanar images are reconstructed and reviewed when indicated. This CT examination is performed using one or more of the following dose reduction techniques: Automated exposure control, adjustment of the mA and /or kV according to patient size, and/or use of iterative reconstruction technique. Findings: No mediastinal or hilar lymphadenopathy. Normal size heart. No pericardial effusion. No thoracic aortic aneurysm or dissection. No central pulmonary arterial filling defect. Patent central airways. No pleural effusion or pneumothorax. Clear lungs. Unremarkable appearance of pancreas and spleen. Unremarkable appearance of liver and gallbladder. Unremarkable appearance of the adrenal glands and kidneys. The patient is status post radical cystectomy with bladder reconstruction. . No small or large bowel obstruction. No apparent bowel wall thickening. No findings to indicate acute appendicitis. No free fluid or lymphadenopathy. No abdominal aortic aneurysm. Stable fat-containing ventral hernia. No aggressive osseous lesion. Chronic fractures of the left scapula and left posterior third through seventh ribs. Impression: No evidence of metastatic disease in the chest, abdomen, or pelvis. Signed: Adan Talley MD Report Verified Date/Time: 02/18/2019 09:37:19 Reading Location: [facility] [id number] Ortho Consult Reading Room Performing Organization Address City/State/Zipcode Phone Number [facility] CT chest with IV contrast (02/17/2019 11:55 PM CDT)Only the most recent of2 resultswithin the time period is included. Specimen Narrative Performed At FINAL REPORT [facility] CT Chest, abdomen, and pelvis with contrast History: Bladder cancer Comparison: 11/14/2018 Technique: serial axial imaging was performed following up to 100cc of non ionic iodinated intravenous contrast as per departmental protocol.Multiplanar images are reconstructed and reviewed when indicated. This CT examination is performed using one or more of the following dose reduction techniques: Automated exposure control, adjustment of the mA and /or kV according to patient size, and/or use of iterative reconstruction technique. Findings: No mediastinal or hilar lymphadenopathy. Normal size heart.No pericardial effusion. No thoracic aortic aneurysm or dissection.No central pulmonary arterial filling defect. Patent central airways.No pleural effusion or pneumothorax.Clear lungs. Unremarkable appearance of pancreas and spleen. Unremarkable appearance of liver and gallbladder. Unremarkable appearance of the adrenal glands and kidneys. The patient is status post radical cystectomy with bladder reconstruction. . No small or large bowel obstruction.No apparent bowel wall thickening.No findings to indicate acute appendicitis. No free fluid or lymphadenopathy. No abdominal aortic aneurysm. Stable fat-containing ventral hernia. No aggressive osseous lesion. Chronic fractures of the left scapula and left posterior third through seventh ribs. Impression: No evidence of metastatic disease in the chest, abdomen, or pelvis. Signed: Adan Talley MD Report Verified Date/Time:02/18/2019 09:37:19 Reading Location: [address] Ortho Consult Reading Room Procedure Note Interface, External Ris In - 02/18/2019 9:39 AM CDT FINAL REPORT CT Chest, abdomen, and pelvis with contrast History: Bladder cancer Comparison: 11/14/2018 Technique: serial axial imaging was performed following up to 100cc of non ionic iodinated intravenous contrast as per departmental protocol. Multiplanar images are reconstructed and reviewed when indicated. This CT examination is performed using one or more of the following dose reduction techniques: Automated exposure control, adjustment of the mA and /or kV according to patient size, and/or use of iterative reconstruction technique. Findings: No mediastinal or hilar lymphadenopathy. Normal size heart. No pericardial effusion. No thoracic aortic aneurysm or dissection. No central pulmonary arterial filling defect. Patent central airways. No pleural effusion or pneumothorax. Clear lungs. Unremarkable appearance of pancreas and spleen. Unremarkable appearance of liver and gallbladder. Unremarkable appearance of the adrenal glands and kidneys. The patient is status post radical cystectomy with bladder reconstruction. . No small or large bowel obstruction. No apparent bowel wall thickening. No findings to indicate acute appendicitis. No free fluid or lymphadenopathy. No abdominal aortic aneurysm. Stable fat-containing ventral hernia. No aggressive osseous lesion. Chronic fractures of the left scapula and left posterior third through seventh ribs. Impression: No evidence of metastatic disease in the chest, abdomen, or pelvis. Signed: Adan Talley MD Report Verified Date/Time: 02/18/2019 09:37:19 Reading Location: [facility] [id number] Ortho Consult Reading Room Performing Organization Address City/State/[facility] Phone Number [facility] POC-Glucose meter (02/17/2019 12:19 PM CDT)Only the most recent of11 resultswithin the time period is included. POC-Glucose Meter 94Comment: TESTED AT 70 - 110 mg/dL [address] [address] Specimen Blood Performing Organization Address [facility] Phone Number [place] [phone] CENTER Troponin I (02/17/2019 4:06 AM CDT)Only the most recent of8 resultswithin the time period is included. Troponin I 0.09 (H) 0.00 - 0.03 ng/mL [facility] Specimen Blood Narrative Performed At Troponin I (TnI) levels must be interpreted [facility] in the context of the presenting symptoms and the clinical findings. Elevated TnI levels indicate myocardial damage, but are not specific for ischemic heart disease. Elevated TnI levels are seen in patients with other cardiac conditions (including myocarditis and congestive heart failure), and slight TnI elevations occur in patients with other conditions, including sepsis, renal failure, acidosis, acute neurological disease, and persistent tachyarrhythmia. Performing Organization Address City/State/Zipcode Phone Number [facility] [address] [place] [address] [phone] [place] Lactic acid, venous, Daily (02/17/2019 4:06 AM CDT)Only the most recent of5 resultswithin the time period is included. Lactate, Venous 0.5 0.5 - 2.2 mmol/L [facility] Specimen Blood Performing Organization Address City/[facility] Phone Number [facility] [address] [place] [address] [phone] [place] PERIPHERAL VASCULAR REPORT - SCAN (02/16/2019 9:21 PM CDT) Narrative Performed At Fibrinogen (02/16/2019 5:41 PM CDT) Fibrinogen 359 225 - 434 mg/dl [facility] Specimen Blood Performing Organization Address City/[facility] Phone Number [address] [address] [place] 2D Echo W/Doppler(CW/PW/Color) (02/16/2019 5:17 PM CDT) Ejection Fraction [facility] [place] Specimen Narrative Performed At Transthoracic Echocardiography Report (TTE) [facility] [place] Demographics Patient Name VIELKA ARAGON Date of Study 02/16/2019 BREANNA [id number] GenderMale Visit Number [id number] Room Number 2227 Number Date of Birth1965Referring Physician Bennett Pickett Age53 year(s)Assistant Dean Of Students Ling Mckenzie [facility] AnalystIzoralph Oliva Physician Procedure Type of Study TTE procedure:2DECHO W DOPPLER(CW/PW/COLOR) (Routine) Indications:Suspected cardiac source of emboli. Clinical History CA, Insomnia, Hypothyroidism HGB 10 HCT 29.7 % Contrast Medium: Bubble Study. Height: 71 inches Weight: 87.54 kg (193 lbs) BSA: 2.08 m^2 BMI: 26.92 kg/m^2 HR: 64 bpm BP: 107/52 mmHg Summary IV saline contrast injection was negative for a PFO (patent foramen ovale) at rest and post Valsalva . The left ventricle is chamber size (by PSLAX dimension) is normal (male - LVIDd 4.2-5.8cm) . All of the LV segments contract normally . LVEF by Rene's method of disk assessment is normal (55-60%) . Normal diastolic function. Unable to estimate peak systolic PA pressure; inadequate TR velocity signal. Previous Study No prior exam available for comparison. Signature Findings Rhythm/BPSinus bradycardia during the exam. Left Ventricle The left ventricle is chamber size (by PSLAX di mension) is normal (male - LVIDd 4.2-5.8cm) . No rmal LV wall thickness. All of the LV segments co ntract normally . Global LV systolic function no rmal . LVEF by Rene's method of disk as sessment is normal (55-60%) . The LVEF was me asured using Rene's bi-plane method of disk . No rmal diastolic function. Co nsider IV ultrasound enhancing agent for improved en docardial border detection. Left AtriumLA size is normal (16-34 ml/m2) . Right VentricleRV chamber size is normal . Gl obal RV systolic function is normal . Right Atrium RA cavity size is normal . Atrial SeptumIV saline contrast injection was negative for a PFO (p atent foramen ovale) at rest and post Valsalva . Aortic Valve Mild AoV cusp thickening. Ao V cusp mobility is normal . Mitral Valve Mild MV leaflet thickening. Mi ld mitral annular calcification. Mi ld mitral regurgitation. Tricuspid ValveUnable to estimate peak systolic PA pressure; in adequate TR velocity signal. Pulmonic Valve Mild pulmonary regurgitation. No rmal PV structure and function. AortaAortic root size (SInus of Valsalva diameter) is no rmal . Proximal ascending aorta size is normal . PericardiumNo significant pericardial effusion is visualized. IVC/SVC/PA/PV/PleuralThe right upper pulmonary vein (RUPV) is normal . Th e estimated RA pressure by IVC dynamics 5-10mmHg . Chambers/Structures Left Atrium LA Volume: 64.44 ml LA Area: 21.11 cm^2 LA Vol. Index: 31 ml/m^2 Left Ventricle LVIDd: 4.85 cm LVEDV:99.33 ml LVIDs: 3.25 cm LVESV:42.39 ml LV Septum Diastolic: 0.82 cm LV PW Diastolic: 0.93 cm LVEDV Rene's:87.4 ml LV FS: 33 % LVESV Rene's:36.55 ml LVEF Rene's: 58.2 % LVEDVI: 42 ml/m^2 LVESVI: 18 ml/m^2 LVOT Diameter: 2.19 cm LVEF: 57.3 % Right Atrium RA Vol. (Sngl Plane): 47.72 ml Right Ventricle RV Diast Dim.: 3.31 cm TAPS E: 2.19 cm Aorta Ao Root S of Ketty.: 3.22 cmAscending Aorta: 3.11 cm Doppler/Quantitative Measurements Mitral Valve MV Peak E-Wave: 1.09 m/s MV Peak A-Wave: 1.07 m/s E/A Ratio: 1.02 Peak Gradient: 4.79 mmHg Deceleration Time: 219.2 msec MV Justin. Peak: Tissue Doppler E' Septal Velocity: 0.11 m/s E/E': 11.52 E' Lateral Velocity: 0.1 m/s Aortic Valve Peak Velocity: 1.08 m/sMean Velocity: 0.75 m/s Peak Gradient: 4.67 mmHg Mean Gradient: 2.54 mmHg AV Area (continuity): 3.69 cm^2 AV VTI: 21.54 cm AV DVI: 0.98 LVOT Peak Velocity: 1.13 m/s Peak Gradient: 5.14 mmHg Mean Velocity: 0.73 m/s Mean Gradient: 2.5 mmHg LVOT Diameter: 2.19 cmLVOT VTI: 21.12 cm LVOT Area: 3.77 cm^2LVOT SV:79.52 ml LVOT CO: 5.09 l/min LVOT CI: 2.45 l/min/m^2 Procedure Note Interface, External Ris In - 02/22/2019 11:15 AM CDT Transthoracic Echocardiography Report (TTE) Demographics Patient Name VIELKA ARAGON Date of Study 02/16/2019 BRAENNA Gender Male Visit Number [id number] Race Room Number 2227 Number Date of 1965 Referring Physician Bennett Pickett Age 53 year(s) Assistant Dean Of Students Ling Mckenzie, [facility] Produce Manager Anel Mccain Interpreting Physician BERNARD Bullock Procedure Type of Study TTE procedure:2DECHO W DOPPLER(CW/PW/COLOR) (Routine) Indications:Suspected cardiac source of emboli. Clinical History CA, Insomnia, Hypothyroidism HGB 10 HCT 29.7 % Contrast Medium: Bubble Study. Height: 71 inches Weight: 87.54 kg (193 lbs) BSA: 2.08 m^2 BMI: 26.92 kg/m^2 HR: 64 bpm BP: 107/52 mmHg Summary IV saline contrast injection was negative for a PFO (patent foramen ovale) at rest and post Valsalva . The left ventricle is chamber size (by PSLAX dimension) is normal (male - LVIDd 4.2-5.8cm) . All of the LV segments contract normally . LVEF by Rene's method of disk assessment is normal (55-60%) . Normal diastolic function. Unable to estimate peak systolic PA pressure; inadequate TR velocity signal. Previous Study No prior exam available for comparison. Signature Findings Rhythm/BP Sinus bradycardia during the exam. Left Ventricle The left ventricle is chamber size (by PSLAX dimension) is normal (male - LVIDd 4.2-5.8cm) . Normal LV wall thickness. All of the LV segments contract normally . Global LV systolic function normal . LVEF by Rene's method of disk assessment is normal (55-60%) . The LVEF was measured using Rene's bi-plane method of disk . Normal diastolic function. Consider IV ultrasound enhancing agent for improved endocardial border detection. Left Atrium LA size is normal (16-34 ml/m2) . Right Ventricle RV chamber size is normal . Global RV systolic function is normal . Right Atrium RA cavity size is normal . Atrial Septum IV saline contrast injection was negative for a PFO (patent foramen ovale) at rest and post Valsalva . Aortic Valve Mild AoV cusp thickening. AoV cusp mobility is normal . Mitral Valve Mild MV leaflet thickening. Mild mitral annular calcification. Mild mitral regurgitation. Tricuspid Valve Unable to estimate peak systolic PA pressure; inadequate TR velocity signal. Pulmonic Valve Mild pulmonary regurgitation. Normal PV structure and function. Aorta Aortic root size (SInus of Valsalva diameter) is normal . Proximal ascending aorta size is normal . Pericardium No significant pericardial effusion is visualized. IVC/SVC/PA/PV/Pleural The right upper pulmonary vein (RUPV) is normal . The estimated RA pressure by IVC dynamics 5-10mmHg . Chambers/Structures Left Atrium LA Volume: 64.44 ml LA Area: 21.11 cm^2 LA Vol. Index: 31 ml/m^2 Left Ventricle LVIDd: 4.85 cm LVEDV:99.33 ml LVIDs: 3.25 cm LVESV:42.39 ml LV Septum Diastolic: 0.82 cm LV PW Diastolic: 0.93 cm LVEDV Rene's:87.4 ml LV FS: 33 % LVESV Rene's:36.55 ml LVEF Rene's: 58.2 % LVEDVI: 42 ml/m^2 LVESVI: 18 ml/m^2 LVOT Diameter: 2.19 cm LVEF: 57.3 % Right Atrium RA Vol. (Sngl Plane): 47.72 ml Right Ventricle RV Diast Dim.: 3.31 cm TAPSE: 2.19 cm Aorta Ao Root S of Ketty.: 3.22 cm Ascending Aorta: 3.11 cm Doppler/Quantitative Measurements Mitral Valve MV Peak E-Wave: 1.09 m/s MV Peak A-Wave: 1.07 m/s E/A Ratio: 1.02 Peak Gradient: 4.79 mmHg Deceleration Time: 219.2 msec MV Justin. Peak: Tissue Doppler E' Septal Velocity: 0.11 m/s E/E': 11.52 E' Lateral Velocity: 0.1 m/s Aortic Valve Peak Velocity: 1.08 m/s Mean Velocity: 0.75 m/s Peak Gradient: 4.67 mmHg Mean Gradient: 2.54 mmHg AV Area (continuity): 3.69 cm^2 AV VTI: 21.54 cm AV DVI: 0.98 LVOT Peak Velocity: 1.13 m/s Peak Gradient: 5.14 mmHg Mean Velocity: 0.73 m/s Mean Gradient: 2.5 mmHg LVOT Diameter: 2.19 cm LVOT VTI: 21.12 cm LVOT Area: 3.77 cm^2 LVOT SV:79.52 ml LVOT CO: 5.09 l/min LVOT CI: 2.45 l/min/m^2 Performing Organization Address City/State/[facility] Phone Number [facility] MKCKESSON CPACS XR chest 1 view portable / bedside (02/16/2019 8:53 AM CDT)Only the most recent of2 resultswithin the time period is included. Specimen Narrative Performed At FINAL REPORT Ditto RAD, CHEST, 1 VIEW, NON DEPT CLINICAL INDICATION: pulmonary congestion COMPARISON: Radiograph 02/15/2019 TECHNIQUE: AP view of the chest FINDINGS: Right-sided Mediport is unchanged. Persistently low lung volumes. Increased pulmonary vascular congestion. Developing airspace opacity in the right lower lobe may reflect atelectasis or infection/aspiration. No pleural effusion or pneumothorax. Cardiomediastinal silhouette is unchanged. IMPRESSION: Developing right lower lobe opacity may reflect atelectasis or pneumonia/aspiration. Signed: Nicole Gutierrez MD Report Verified Date/Time:02/16/2019 11:06:29 Reading Location: [facility] Radiology Reading Room Procedure Note Interface, External Ris In - 02/16/2019 11:08 AM CDT FINAL REPORT RAD, CHEST, 1 VIEW, NON DEPT CLINICAL INDICATION: pulmonary congestion COMPARISON: Radiograph 02/15/2019 TECHNIQUE: AP view of the chest FINDINGS: Right-sided Mediport is unchanged. Persistently low lung volumes. Increased pulmonary vascular congestion. Developing airspace opacity in the right lower lobe may reflect atelectasis or infection/aspiration. No pleural effusion or pneumothorax. Cardiomediastinal silhouette is unchanged. IMPRESSION: Developing right lower lobe opacity may reflect atelectasis or pneumonia/aspiration. Signed: Nicole Gutierrez MD Report Verified Date/Time: 02/16/2019 11:06:29 Reading Location: [facility] Radiology Reading Room Performing Organization Address City/[facility] Phone Number GE [facility] Peripheral Blood Smear - Hold only (02/16/2019 2:57 AM CDT) Peripheral Smear Save saved [facility] Specimen Blood Performing Organization Address [facility] Phone Number [address] [address] CENTER Vancomycin level, trough (02/16/2019 2:57 AM CDT) Vancomycin Tr 10.9 10.0 - 20.0 ug/mL [facility] Specimen Blood Performing Organization Address [facility] Phone Number [address] [address] CENTER MR brain without IV contrast (02/15/2019 6:00 PM CDT) Specimen Narrative Performed At FINAL REPORT [facility] MR, BRAIN, WITHOUT CONTRAST INDICATION: Stroke CEREBROVASCULAR ACCIDENT TECHNIQUE: Multiplanar, multisequence MR imaging of the brain was obtained. COMPARISON: CT angiogram February 14, 2019 FINDINGS: Multiple foci of restricted diffusion with concomitant decreased signal on ADC and FLAIR hyperintensity compatible with acute infarcts throughout the right MCA distribution including the centrum semiovale, posterior frontal, temporal and parietal parenchyma recent postcentral gyrus on the right. Punctate infarcts of the left IT PROJECT COORDINATOR and posterior circulation territory including the left occipital lobe and left cerebellar sphere respectively. Brain parenchyma is normal in morphology. Midline structures are normally developed. Scattered T2/FLAIR hyperintense foci within the periventricular and subcortical white matter are nonspecific, however, statistically represent chronic microvascular ischemic changes. No hydrocephalus. Orbits are within normal limits. No obstructive paranasal sinus disease. IMPRESSION: Subterritorial acute infarcts throughout the right MCA territory including subcentimeter infarcts of the precentral and postcentral gyrus. No hemorrhagic conversion or significant mass effect. Punctate infarcts of the left IT PROJECT COORDINATOR territory including the left occipital lobe and left cerebellar sphere. Signed: Gia Staton MD Report Verified Date/Time:02/15/2019 19:38:56 Reading Location: [address] Neuro Reading Room Procedure Note Interface, External Ris In - 02/15/2019 7:41 PM CDT FINAL REPORT MR, BRAIN, WITHOUT CONTRAST INDICATION: Stroke CEREBROVASCULAR ACCIDENT TECHNIQUE: Multiplanar, multisequence MR imaging of the brain was obtained. COMPARISON: CT angiogram February 14, 2019 FINDINGS: Multiple foci of restricted diffusion with concomitant decreased signal on ADC and FLAIR hyperintensity compatible with acute infarcts throughout the right MCA distribution including the centrum semiovale, posterior frontal, temporal and parietal parenchyma recent postcentral gyrus on the right. Punctate infarcts of the left IT PROJECT COORDINATOR and posterior circulation territory including the left occipital lobe and left cerebellar sphere respectively. Brain parenchyma is normal in morphology. Midline structures are normally developed. Scattered T2/FLAIR hyperintense foci within the periventricular and subcortical white matter are nonspecific, however, statistically represent chronic microvascular ischemic changes. No hydrocephalus. Orbits are within normal limits. No obstructive paranasal sinus disease. IMPRESSION: Subterritorial acute infarcts throughout the right MCA territory including subcentimeter infarcts of the precentral and postcentral gyrus. No hemorrhagic conversion or significant mass effect. Punctate infarcts of the left IT PROJECT COORDINATOR territory including the left occipital lobe and left cerebellar sphere. Signed: Gia Staton MD Report Verified Date/Time: 02/15/2019 19:38:56 Reading Location: [address] Neuro Reading Room Performing Organization Address City/State/Zipcode Phone Number GE RIS Venous doppler legs bilateral (02/15/2019 1:14 PM CDT) Ejection Fraction [facility] ECHO InStaff [facility] Specimen Impressions Performed At Right Impression [facility]CHO HEART[facility] Startup FreakON [facility] 1. The common femoral, profunda femoral and proximal great saphenous veins are not visualized due to invasive lines. 2. There is no deep venous obstruction in the femoral, popliteal, posterior tibial or peroneal veins. Left Impression 1. There is no deep venous obstruction in the common femoral, profunda femoral, femoral, posterior tibial or peroneal veins. 2. There is total echolucent deep venous obstruction in the popliteal vein. 3. There is no superficial venous obstruction in the great saphenous vein. Conclusions Summary Venous duplex imaging and compression of the bilateral lower extremities were performed. The veins were adequately visualized except as noted above. The right venous system was patent and compressible with no evidence of thrombus where visualized. The left deep venous system was positive with acute thrombus. Signature Velocities are measured in cm/s ; Diameters are measured in cm Narrative Performed At PV LAB - Lower Extremities DVT Study [facility] ECHO HEARTLAB MobileDevHQESSON [facility] Demographics Patient Name VIELKA ARAGON Date of Study02/15/2019 [id number] Visit Number [id number] Gender Male Accession Number [id number] Date of Birth1965 [facility] [id number] Padmini SonographerKennedy Arguelles RVTInterpreting Yohana Suh PhysicianMD RVT Procedure Type of Study: Veins: Lower Extremities DVT Study, VENOUS DOPPLER LEG, BILATERAL. Indications for Study:Cerebrovascular accident . Patient Status:Routine. Study Location:Portable. Technical Quality:Adequate visualization. - Results were reported to: RN @ 13:22. Risk Factors History of Disease + +----+ + !Diagnosis !Date!Comments ! + +----+ + !History/Risk Factors: !!Bladder Cancer, LLE DVT ! + +----+ + Procedure Note Interface, External Ris In - 02/16/2019 9:40 AM CDT PV LAB - Lower Extremities DVT Study Demographics Patient Name VIELKA ARAGON Date of Study 02/15/2019 Age 53 Visit Number [id number] Gender Male Accession Number [id number] Date of 1965 Referring [facility] Room Number [id number] [place] Assistant [employer] Kennedy Arguelles RVT Interpreting Yohana Suh, Physician MD REDDYT Procedure Type of Study: Veins: Lower Extremities DVT Study, VENOUS DOPPLER LEG, BILATERAL. Indications for Study:Cerebrovascular accident . Patient Status:Routine. Study Location:Portable. Technical Quality:Adequate visualization. - Results were reported to: RN @ 13:22. Risk Factors History of Disease + +----+ + !Diagnosis !Date!Comments ! + +----+ + !History/Risk Factors: ! !Bladder Cancer, LLE DVT ! + +----+ + Impressions Right Impression 1. The common femoral, profunda femoral and proximal great saphenous veins are not visualized due to invasive lines. 2. There is no deep venous obstruction in the femoral, popliteal, posterior tibial or peroneal veins. Left Impression 1. There is no deep venous obstruction in the common femoral, profunda femoral, femoral, posterior tibial or peroneal veins. 2. There is total echolucent deep venous obstruction in the popliteal vein. 3. There is no superficial venous obstruction in the great saphenous vein. Conclusions Summary Venous duplex imaging and compression of the bilateral lower extremities were performed. The veins were adequately visualized except as noted above. The right venous system was patent and compressible with no evidence of thrombus where visualized. The left deep venous system was positive with acute thrombus. Signature Velocities are measured in cm/s ; Diameters are measured in cm Performing Organization Address City/[facility] Phone Number [facility] MKCKESSON CPACS Manual Differential (02/15/2019 11:09 AM CDT) % Neutros (manual) 74 % [facility] % Lymphs (manual) 11 % [facility] % Monos (manual) 13 % [facility] % Eos (manual) 2 % [facility] # Neutros (manual) 5.03 1.80 - 8.00 K/L [facility] # Lymphs (manual) 0.75 (L) 1.48 - 4.50 K/L [facility] # Monos (manual) 0.88 0.00 - 1.30 K/L [facility] # Eos (manual) 0.14 0.00 - 0.50 K/L [facility] Total Counted 100 [facility] WBC Morphology Normal [facility] Platelet Morphology Normal [facility] RBC Morphology Normal [facility] Specimen Blood Performing Organization Address City/[facility]/Zipcode Phone Number [facility] [address] [place] [address] CENTER Peripheral Blood Smear - Path Review (02/15/2019 11:09 AM CDT) WBC Morphology Toxic Granulation [facility] Pathologist Review Cell counts confirmed. [facility] Pathologist: Anna Goel M.D. [facility] (electronic signature) [facility] Specimen Blood Performing Organization Address City/State/Zipcode Phone Number [address] [address] [place] CBC with platelet count + manual diff (02/15/2019 11:09 AM CDT) WBC 6.8 3.5 - 10.5 K/L [facility] RBC 3.84 (L) 4.63 - 6.08 M/L [facility] Hemoglobin 11.6 (L) 13.7 - 17.5 GM/DL [facility] Hematocrit 35.4 (L) 40.1 - 51.0 % [facility] MCV 92.2 79.0 - 92.2 fL [facility] MCH 30.2 25.7 - 32.2 pg [facility] MCHC 32.8 32.3 - 36.5 GM/DL [facility] RDW 12.7 11.6 - 14.4 % [facility] Platelets 73 (L) 150 - 450 K/CU MM [facility] MPV 10.4 9.4 - 12.4 fL [facility] nRBC 0 0 - 0 /100 WBC [facility] Specimen Blood Performing Organization Address City/State/Zipcode Phone Number [facility] [address] [place] [address] [place] Urinalysis w/Microscopic (02/15/2019 9:37 AM CDT) Color, UA Yellow [facility] Clarity, UA Cloudy [facility] Specific [place], UA 1.021 1.001 - 1.035 [facility] pH, UA 5.5 5.0 - 8.0 [facility] Protein, UA 50 mg/dL (A) Negative [facility] Glucose, UA Negative Negative [facility] Ketones, UA Negative Negative [facility] Bilirubin, UA Negative Negative [facility] Blood, UA Moderate (A) Negative [facility] Nitrite, UA Positive (A) Negative [facility] Leukocytes, UA Large (A) Negative [facility] Urobilinogen, UA 0.2 0.2 - 1.0 mg/dL [facility] RBC, UA 877 /HPF [facility] WBC, UA 186 /HPF [facility] Mucus Rare [facility] Squam Epithel, UA 1 /HPF [facility] Specimen Source [facility] Specimen Urine Performing Organization Address [facility] Phone Number [address] [address] [phone] [place] Procalcitonin (02/15/2019 2:53 AM CDT) Procalcitonin 0.37 (H) <0.05 ng/mL [facility] Specimen Blood Narrative Performed At SEPSIS RISK (ng/mL) [facility] Low:0.05-0.50 Intermediate: 0.51-2.00 High: >=2.01 Performing Organization Address [facility] Phone Number [address] [address] [place] Vitamin B12 and Folate (02/15/2019 2:53 AM CDT) Vitamin B12 343 213 - 816 pg/mL [facility] Folate 15.9 >=7.0 ng/mL [facility] Specimen Blood Performing Organization Address City/State/Zipcode Phone Number [address] [address] [phone] [place] TSH/Free T4 If Indicated (02/15/2019 2:53 AM CDT) TSH 0.67 0.35 - 4.94 uIU/mL [facility] Specimen Blood Performing Organization Address City/[facility]/Zipcode Phone Number [address] [address] [place] RPR (02/15/2019 2:53 AM CDT) RPR Nonreactive Nonreactive [facility] Specimen Blood Performing Organization Address [facility] Phone Number [address] [address] [phone] [place] Hemoglobin A1c (02/15/2019 2:53 AM CDT) Hemoglobin A1C 5.6 4.3 - 6.1 % [facility] Specimen Blood Performing Organization Address [facility] Phone Number [address] [address] [phone] [place] Blood Culture - Routine (Left Venipuncture) (02/15/2019 2:52 AM CDT)Only the most recent of2 resultswithin the time period is included. Result No growth in 5 days [facility] Specimen Blood Performing Organization Address City/[facility]/Zipcode Phone Number [address] [address] [place] Manual Differential (02/15/2019 12:47 AM CDT) % Neutros 65 % [facility] % Lymphs 20 % [facility] % Monos 10 % [facility] % Eos 1 % [facility] % Baso 1 % [facility] % Bands 3 0 - 10 % [facility] # Neutros 8.26 (H) 1.78 - 5.38 K/ul [facility] # Lymphs 2.54 1.32 - 3.57 K/ul [facility] # Monos 1.27 (H) 0.30 - 0.82 K/uL [facility] # Eos 0.13 0.04 - 0.54 K/uL [facility] # Baso 0.13 (H) 0.01 - 0.08 K/uL [facility] # Bands 0.38 0.00 - 0.80 K/uL [facility] Total Counted 100 [facility] Platelet Morphology Normal [facility] Smudge Cells Present [facility] Anisocytosis 1+ few [facility] Microcytes 1+ few [facility] Poikilocytes 2+ moderate [facility] Spherocytes 2+ moderate [facility] Ovalocytes 2+ moderate [facility] Tear Drop Cells 2+ moderate [facility] Platelet Conc Decreased [facility] Specimen Blood Narrative Performed At Received comment: [facility] User comments: Slide comments: Performing Organization Address City/State/Zipcode Phone Number [facility] [address] [place] [address] [phone] CENTER Hepatic function panel (02/15/2019 12:46 AM CDT) Protein, Total 7.2 6.0 - 8.3 gm/dL [facility] Albumin 4.1 3.5 - 5.0 g/dL [facility] Total Bilirubin 2.2 (H) 0.2 - 1.2 mg/dL [facility] Bilirubin, Direct 0.8 (H) 0.1 - 0.5 mg/dL [facility] Alkaline Phosphatase 109 40 - 150 U/L [facility] AST 23 5 - 34 U/L [facility] ALT 20 6 - 55 U/L [facility] Specimen Blood Narrative Performed At Specimen slightly icteric [facility] Performing Organization Address City/[facility] Phone Number [address] [address] [place] Lipid panel (02/15/2019 12:46 AM CDT) Triglycerides 119 mg/dL [facility] Cholesterol 115 mg/dL [facility] HDL 42 mg/dL [facility] LDL Calculated 49 mg/dL [facility] Specimen Blood Narrative Performed At Triglyceride Reference Range: [facility] Low Risk <150 [id number] High Risk 200-499 Very High Risk>=500 Cholesterol Reference Range: Low Risk <200 [id number] High Risk>240 HDL Cholesterol Reference Range: Low Risk >=60 High Risk <40 LDL Cholesterol Reference Range: Optimal<100 Near [id number] Very High >=190 Specimen slightly icteric Performing Organization Address City/[facility] Phone Number [address] [address] [place] cerebral 4 vessel angiogram (02/14/2019 9:49 PM CDT) Specimen Narrative Performed At FINAL REPORT [facility] DATE: 02/14/2019 SURGEON: Adina Khan M.D. LINESPERSON: Ruchi Pacheco M.D. PREOPERATIVE DIAGNOSIS: Right MCA (M1) occlusion POST OPERATIVE DIAGNOSIS: Right MCA occlusion s/p successful recanalization OPERATION: 1) CEREBRAL ANGIOGRAM 2) Mechanical embolectomy of the middle cerebral artery thrombus ANESTHESIA:MAC ESTIMATED BLOOD LOSS:75cc COMPLICATIONS: None INDICATIONS:The patient is a 53 year old male with history of bladder and prostate cancer who presented to the ER with acute onset right sided weakness, found to have right M1 occlusion and brought for emergent thrombectomy. PROCEDURE:The patient was unable to consent due to his diminished neurological status. Nonetheless we attempted to speak with him briefly about the risks and benefits of angiography and thrombectomy. Consent was provided by his son The risks, including but not limited to stroke, intracranial hemorrhage, vascular injury to the cervical or femoral vessels and groin hematoma were discussed with the patient nevertheless. The procedure was ultimately performed under emergent consent.A time-out was performed.Both groins were prepped in the usual sterile fashion using Chloroprep, and sterilely draped.A single wall puncture of the right femoral artery was performed and a 8 Mauritian short sheath was inserted and placed on heparinized flush. An 8 Mauritian Infinity long sheath was advanced into the descending aorta, back-bled, and flushed in the usual fashion.Using coaxial technique, the guide catheter was advanced over a VTK catheter into the aortic arch, and then the right common carotid artery and using roadmap and careful guidewire manipulation, the right internal carotid was catheterized.Upon each successive selective catheterization, digital subtraction angiography using the appropriate rate and volume of contrast in multiple projections was performed. FINDINGS: RIGHT COMMON FEMORAL ARTERY (DSA - PA, LATERAL - ILIAC) The sheath enters above the femoral bifurcation. The femoral artery and bifurcation are widely patent without evidence of ulceration or stenosis. RIGHT COMMON CAROTID ARTERY (DSA - PA, LATERAL - CERVICAL) The origins of the right internal and external carotid arteries are widely patent without evidence of ulceration or stenosis. RIGHT INTERNAL CAROTID ARTERY (DSA - PA, LATERAL, OBLIQUE - HEAD) Proximal occlusion of the right M1 middle cerebral artery is evident. There is no anterograde flow. There are delayed pial collaterals between the anterior cerebral artery and the MIGEL-MCA watershed zone. The internal carotid artery otherwise has normal course and appearance. There is normal anterograde flow into the anterior cerebral artery with cross-filling into the contralateral MIGEL territory. There is an occlusion of the right M1 middle cerebral artery just distal to the bifurcation. ENDOVASCULAR INTERVENTION: A roadmap was obtained and a triaxial system comprising an 8 Mauritian Infinity guide catheter, an Catalyst 7 distal access catheter, and a Velocity microcatheter over a Synchro standard wire. The wire was advanced into the distal middle cerebral artery past the area of occlusion. The distal access catheter was tracked distally and positioned at the face of the clot, and the microcatheter advanced past the area of occlusion. A microcatheter angiogram from the distal M2 MCA demonstrated normal distal flow. A 5 x 33 mm and Embotrap stent retriever was then advanced to the area of occlusion through the Velocity microcatheter and deployed. Diagnostic angiogram through the distal access catheter demonstrated patency of the vessel and reestablishment of anterograde flow. After a 5 minutes the stentriever was removed with dual simultaneous aspiration technique with flow arrest from the distal internal carotid artery via the Infinity catheter. An angiogram demonstrated persistent occlusion in the same location. The distal MCA was reaccessed with the microwire and the inferior M2 branch was catheterized with the microcatheter. A second deployment was performed with the stent retriever. After four minutes the stent retriever was removed with dual simultaneous aspiration technique, flow arrest, and trapping of the clot with the distal access catheter. An angiogram demonstrated persistent occlusion in the same location. This time a Trevo 4mm x 30mm stent retriever was positioned across the area of thrombus and deployed. After four minutes the stent retriever was removed with dual simultaneous aspiration technique, flow arrest, and trapping of the clot with the distal access catheter. The distal access catheter and stent retriever were locked and removed together into the guide catheter. Angiogram via the right internal carotid artery showed reestablished flow, TICI 2a, in the MCA distribution. Whole head and angiograms demonstrated no untoward findings. The catheters were removed. The 8 Mauritian sheath was removed. Hemostasis was achieved with an Angio-Seal closure device. The patient tolerated the procedure well and was transported from the angiography suite to the neurointensive care unit. SUPERVISION AND INTERPRETATION: 1.Angiographic study demonstrates complete occlusion of the proximal M1 segment of the right middle cerebral artery 2.Successful recanalization using stentriever deployment and aspiration, 2 passes. TICI 2b. 3.No immediate technical or clinical complications. Signed: Adina Khan MD Report Verified Date/Time:02/19/2019 13:20:54 Reading Location: [facility] Y026 Neuro Angio Reading Room Procedure Note Interface, External Ris In - 02/19/2019 1:23 PM CDT FINAL REPORT DATE: 02/14/2019 SURGEON: Adina Khan M.D. LINESPERSON: Ruchi Pacheco M.D. PREOPERATIVE DIAGNOSIS: Right MCA (M1) occlusion POST OPERATIVE DIAGNOSIS: Right MCA occlusion s/p successful recanalization OPERATION: 1) CEREBRAL ANGIOGRAM 2) Mechanical embolectomy of the middle cerebral artery thrombus ANESTHESIA: MAC ESTIMATED BLOOD LOSS: 75cc COMPLICATIONS: None INDICATIONS: The patient is a 53 year old male with history of bladder and prostate cancer who presented to the ER with acute onset right sided weakness, found to have right M1 occlusion and brought for emergent thrombectomy. PROCEDURE: The patient was unable to consent due to his diminished neurological status. Nonetheless we attempted to speak with him briefly about the risks and benefits of angiography and thrombectomy. Consent was provided by his son The risks, including but not limited to stroke, intracranial hemorrhage, vascular injury to the cervical or femoral vessels and groin hematoma were discussed with the patient nevertheless. The procedure was ultimately performed under emergent consent. A time-out was performed. Both groins were prepped in the usual sterile fashion using Chloroprep, and sterilely draped. A single wall puncture of the right femoral artery was performed and a 8 Mauritian short sheath was inserted and placed on heparinized flush. An 8 Mauritian Infinity long sheath was advanced into the descending aorta, back-bled, and flushed in the usual fashion. Using coaxial technique, the guide catheter was advanced over a VTK catheter into the aortic arch, and then the right common carotid artery and using roadmap and careful guidewire manipulation, the right internal carotid was catheterized. Upon each successive selective catheterization, digital subtraction angiography using the appropriate rate and volume of contrast in multiple projections was performed. FINDINGS: RIGHT COMMON FEMORAL ARTERY (DSA - PA, LATERAL - ILIAC) The sheath enters above the femoral bifurcation. The femoral artery and bifurcation are widely patent without evidence of ulceration or stenosis. RIGHT COMMON CAROTID ARTERY (DSA - PA, LATERAL - CERVICAL) The origins of the right internal and external carotid arteries are widely patent without evidence of ulceration or stenosis. RIGHT INTERNAL CAROTID ARTERY (DSA - PA, LATERAL, OBLIQUE - HEAD) Proximal occlusion of the right M1 middle cerebral artery is evident. There is no anterograde flow. There are delayed pial collaterals between the anterior cerebral artery and the MIGEL-MCA watershed zone. The internal carotid artery otherwise has normal course and appearance. There is normal anterograde flow into the anterior cerebral artery with cross-filling into the contralateral MIGEL territory. There is an occlusion of the right M1 middle cerebral artery just distal to the bifurcation. ENDOVASCULAR INTERVENTION: A roadmap was obtained and a triaxial system comprising an 8 Mauritian Infinity guide catheter, an Catalyst 7 distal access catheter, and a Velocity microcatheter over a Synchro standard wire. The wire was advanced into the distal middle cerebral artery past the area of occlusion. The distal access catheter was tracked distally and positioned at the face of the clot, and the microcatheter advanced past the area of occlusion. A microcatheter angiogram from the distal M2 MCA demonstrated normal distal flow. A 5 x 33 mm and Embotrap stent retriever was then advanced to the area of occlusion through the Velocity microcatheter and deployed. Diagnostic angiogram through the distal access catheter demonstrated patency of the vessel and reestablishment of anterograde flow. After a 5 minutes the stentriever was removed with dual simultaneous aspiration technique with flow arrest from the distal internal carotid artery via the Infinity catheter. An angiogram demonstrated persistent occlusion in the same location. The distal MCA was reaccessed with the microwire and the inferior M2 branch was catheterized with the microcatheter. A second deployment was performed with the stent retriever. After four minutes the stent retriever was removed with dual simultaneous aspiration technique, flow arrest, and trapping of the clot with the distal access catheter. An angiogram demonstrated persistent occlusion in the same location. This time a Trevo 4mm x 30mm stent retriever was positioned across the area of thrombus and deployed. After four minutes the stent retriever was removed with dual simultaneous aspiration technique, flow arrest, and trapping of the clot with the distal access catheter. The distal access catheter and stent retriever were locked and removed together into the guide catheter. Angiogram via the right internal carotid artery showed reestablished flow, TICI 2a, in the MCA distribution. Whole head and angiograms demonstrated no untoward findings. The catheters were removed. The 8 Mauritian sheath was removed. Hemostasis was achieved with an Angio-Seal closure device. The patient tolerated the procedure well and was transported from the angiography suite to the neurointensive care unit. SUPERVISION AND INTERPRETATION: 1. 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 Successful recanalization using stentriever deployment and aspiration, 2 passes. TICI 2b. 3. No immediate technical or clinical complications. Signed: Adina Khan MD Report Verified Date/Time: 02/19/2019 13:20:54 Reading Location: [facility] Y026 Neuro Angio Reading Room Performing Organization Address City/[facility]/Zipcode Phone Number GE RIS XR chest PA or AP 1 view in dept (02/14/2019 6:08 PM CDT) Specimen Narrative Performed At FINAL REPORT GE RIS AP view of the chest dated 02/14/2019 CLINICAL INFORMATION: chest pain Comment:Heart is normal in size. Port-A-Cath is present. Pulmonary vasculature is unremarkable. Lungs are clear. No pulmonary infiltrate or pleural effusion is present. Rib fracture is seen in the left fourth and fifth rib laterally. No pneumothorax is present. Impression: Left rib fractures of undetermined age. Signed: Kiara Katz MD Report Verified Date/Time:02/14/2019 18:34:55 Reading Location: [facility] [id number] Consult Reading Room Procedure Note Interface, External Ris In - 02/14/2019 6:37 PM CDT FINAL REPORT AP view of the chest dated 02/14/2019 CLINICAL INFORMATION: chest pain Comment: Heart is normal in size. Port-A-Cath is present. Pulmonary vasculature is unremarkable. Lungs are clear. No pulmonary infiltrate or pleural effusion is present. Rib fracture is seen in the left fourth and fifth rib laterally. No pneumothorax is present. Impression: Left rib fractures of undetermined age. Signed: Kiara Katz MD Report Verified Date/Time: 02/14/2019 18:34:55 Reading Location: [facility] [id number] Consult Reading Room Performing Organization Address City/[facility]/Zipcode Phone Number GE RIS PT/aPTT (02/14/2019 5:56 PM CDT) Protime 16.4 (H) 11.9 - 14.2 seconds [facility] INR 1.4 <=5.9 [facility] PTT 29.6 22.5 - 36.0 seconds [facility] Specimen Blood Narrative Performed At Effective 12/06/2018: PT Reference Range [facility] Change New: 11.9-14.2Previous: 11.7-14.7 RECOMMENDED COUMADIN/WARFARIN INR THERAPY RANGES STANDARD DOSE: 2.0-3.0Includes: PROPHYLAXIS for venous thrombosis, systemic embolization; TREATMENT for venous thrombosis and/or pulmonary embolus. HIGH RISK: Target INR is 2.5-3.5 for patients wiht mechanical heart valves. Performing Organization Address City/State/Zipcode Phone Number [facility] [address] [place] [address] CENTER CRITICAL CARE (02/14/2019 5:51 PM CDT) Narrative Performed At Nathalie Villarreal MD 02/15/20191:15 AM Critical Care Performed by: Nathalie Villarreal MD Authorized by: Bennett Pickett MD Total critical care time: 40 minutes Critical care time was exclusive of separately billable procedures and treating other patients. Critical care was necessary to treat or prevent imminent or life-threatening deterioration of the following conditions: NUT GRINDER failure or compromise. Critical care was time spent personally by me on the following activities: development of treatment plan with patient or surrogate, discussions with consultants, evaluation of patient's response to treatment, examination of patient, obtaining history from patient or surrogate, ordering and performing treatments and interventions, ordering and review of laboratory studies, ordering and review of radiographic studies, pulse oximetry, re-evaluation of patient's condition and review of old charts. CT brain/stroke protocol (02/14/2019 5:25 PM CDT) Specimen Narrative Performed At FINAL REPORT Ditto CT, BRAIN/STROKE PROTOCOL CLINICAL INDICATION:Stroke stroke COMPARISON: None TECHNIQUE:Noncontrast axial CT imaging of the brain and skull. DOSE REDUCTION: Dose modulation, iterative reconstruction, and/or weight-based adjustment of the mA/kV was utilized to reduce the radiation dose to as low as reasonably achievable. FINDINGS: No intracranial hemorrhage, midline shift or mass effect. Midline structures are normally developed. Mild chronic microvascular ischemic changes of the periventricular and subcortical white matter are present. No hydrocephalus. Orbits are within normal limits. No obstructive paranasal sinus disease. IMPRESSION: No acute intracranial findings If there is persistent clinical concern for intracranial pathology, MR examination is recommended for further characterization. Findings relayed to ED staff by Dr. Staton at time of this dictation Signed: Gia Staton MD Report Verified Date/Time:02/14/2019 17:41:18 Reading Location: [address] Neuro Reading Room Procedure Note Interface, External Ris In - 02/14/2019 5:47 PM CDT FINAL REPORT CT, BRAIN/STROKE PROTOCOL CLINICAL INDICATION: Stroke stroke COMPARISON: None TECHNIQUE: Noncontrast axial CT imaging of the brain and skull. DOSE REDUCTION: Dose modulation, iterative reconstruction, and/or weight-based adjustment of the mA/kV was utilized to reduce the radiation dose to as low as reasonably achievable. FINDINGS: No intracranial hemorrhage, midline shift or mass effect. Midline structures are normally developed. Mild chronic microvascular ischemic changes of the periventricular and subcortical white matter are present. No hydrocephalus. Orbits are within normal limits. No obstructive paranasal sinus disease. IMPRESSION: No acute intracranial findings If there is persistent clinical concern for intracranial pathology, MR examination is recommended for further characterization. Findings relayed to ED staff by Dr. Staton at time of this dictation Signed: Gia Staton MD Report Verified Date/Time: 02/14/2019 17:41:18 Reading Location: [address] Neuro Reading Room Performing Organization Address City/State/Zipcode Phone Number Ditto CTA carotid (02/14/2019 5:25 PM CDT) Specimen Narrative Performed At FINAL REPORT Ditto CT, CTANGIOBRAIN, CT, CAROTID, ANGIO BRAIN CT WITHOUT CONTRAST INDICATION: Stroke l hp COMPARISON: CT head of the same date TECHNIQUE: Rapid acquisition spiral images were obtained between the aortic arch and the cranial vertex during intravenous contrast infusion to reconstruct axial images and angiographic 3D maximum intensity projections (MIP). 3-D volumetric reformatted images were created at a dedicated workstation. Stenosis evaluation reported in compliance with NASCET criteria. DOSE REDUCTION: Dose modulation, iterative reconstruction, and/or weight-based adjustment of the mA/kV was utilized to reduce the radiation dose to as low as reasonably achievable. FINDINGS: CTA BRAIN: Internal carotid arteries: Petrous, cavernous and supraclinoid portions patent. Middle cerebral arteries: Lack of contrast opacification of the right M1 segment, concerning for occlusion. Right distal M2 branches fill minimally, likely secondary to collateral flow. Left MCA M1-M2 branches demonstrate normal contrast enhancement. Anterior cerebral arteries: Bilateral MIGEL A1-A2 branches demonstrate normal contrast enhancement. Basilar system: Normal contrast opacification of the vertebrobasilar system. Posterior cerebral arteries: Normal contrast opacification of the bilateral IT PROJECT COORDINATOR P1-P2 branches. Venous opacification: Major dural sinuses unremarkable for bolus timing. Additional findings: None. CTA NECK: Common carotid arteries: There is normal contrast opacification of the bilateral common carotid arteries. Cervical internal carotid arteries: Normal contrast opacification of the bilateral cervical internal carotid arteries without significant stenosis by NASCET criteria. Vertebral arteries: Normal contrast opacification of the bilateral cervical vertebral arteries. Arch anatomy: Conventional. Nonvascular findings: No acute findings within the neck soft tissues IMPRESSION: Findings regarding right M1 occlusion relayed to ED staff by Dr. Staton 6:13 PM Signed: Gia Staton MD Report Verified Date/Time:02/14/2019 18:14:44 Reading Location: [address] Neuro Reading Room Procedure Note Interface, External Ris In - 02/14/2019 6:16 PM CDT FINAL REPORT CT, CTANGIO BRAIN, CT, CAROTID, ANGIO BRAIN CT WITHOUT CONTRAST INDICATION: Stroke l hp COMPARISON: CT head of the same date TECHNIQUE: Rapid acquisition spiral images were obtained between the aortic arch and the cranial vertex during intravenous contrast infusion to reconstruct axial images and angiographic 3D maximum intensity projections (MIP). 3-D volumetric reformatted images were created at a dedicated workstation. Stenosis evaluation reported in compliance with NASCET criteria. DOSE REDUCTION: Dose modulation, iterative reconstruction, and/or weight-based adjustment of the mA/kV was utilized to reduce the radiation dose to as low as reasonably achievable. FINDINGS: CTA BRAIN: Internal carotid arteries: Petrous, cavernous and supraclinoid portions patent. Middle cerebral arteries: Lack of contrast opacification of the right M1 segment, concerning for occlusion. Right distal M2 branches fill minimally, likely secondary to collateral flow. Left MCA M1-M2 branches demonstrate normal contrast enhancement. Anterior cerebral arteries: Bilateral MIGEL A1-A2 branches demonstrate normal contrast enhancement. Basilar system: Normal contrast opacification of the vertebrobasilar system. Posterior cerebral arteries: Normal contrast opacification of the bilateral IT PROJECT COORDINATOR P1-P2 branches. Venous opacification: Major dural sinuses unremarkable for bolus timing. Additional findings: None. CTA NECK: Common carotid arteries: There is normal contrast opacification of the bilateral common carotid arteries. Cervical internal carotid arteries: Normal contrast opacification of the bilateral cervical internal carotid arteries without significant stenosis by NASCET criteria. Vertebral arteries: Normal contrast opacification of the bilateral cervical vertebral arteries. Arch anatomy: Conventional. Nonvascular findings: No acute findings within the neck soft tissues IMPRESSION: Findings regarding right M1 occlusion relayed to ED staff by Dr. Staton 6:13 PM Signed: Gia Staton MD Report Verified Date/Time: 02/14/2019 18:14:44 Reading Location: [address] Neuro Reading Room Performing Organization Address City/State/Zipcode Phone Number Ditto CTA brain (02/14/2019 5:25 PM CDT) Specimen Narrative Performed At FINAL REPORT Ditto CT, CTANGIOBRAIN, CT, CAROTID, ANGIO BRAIN CT WITHOUT CONTRAST INDICATION: Stroke l hp COMPARISON: CT head of the same date TECHNIQUE: Rapid acquisition spiral images were obtained between the aortic arch and the cranial vertex during intravenous contrast infusion to reconstruct axial images and angiographic 3D maximum intensity projections (MIP). 3-D volumetric reformatted images were created at a dedicated workstation. Stenosis evaluation reported in compliance with NASCET criteria. DOSE REDUCTION: Dose modulation, iterative reconstruction, and/or weight-based adjustment of the mA/kV was utilized to reduce the radiation dose to as low as reasonably achievable. FINDINGS: CTA BRAIN: Internal carotid arteries: Petrous, cavernous and supraclinoid portions patent. Middle cerebral arteries: Lack of contrast opacification of the right M1 segment, concerning for occlusion. Right distal M2 branches fill minimally, likely secondary to collateral flow. Left MCA M1-M2 branches demonstrate normal contrast enhancement. Anterior cerebral arteries: Bilateral MIGEL A1-A2 branches demonstrate normal contrast enhancement. Basilar system: Normal contrast opacification of the vertebrobasilar system. Posterior cerebral arteries: Normal contrast opacification of the bilateral IT PROJECT COORDINATOR P1-P2 branches. Venous opacification: Major dural sinuses unremarkable for bolus timing. Additional findings: None. CTA NECK: Common carotid arteries: There is normal contrast opacification of the bilateral common carotid arteries. Cervical internal carotid arteries: Normal contrast opacification of the bilateral cervical internal carotid arteries without significant stenosis by NASCET criteria. Vertebral arteries: Normal contrast opacification of the bilateral cervical vertebral arteries. Arch anatomy: Conventional. Nonvascular findings: No acute findings within the neck soft tissues IMPRESSION: Findings regarding right M1 occlusion relayed to ED staff by Dr. Staton 6:13 PM Signed: Gia Staton MD Report Verified Date/Time:02/14/2019 18:14:44 Reading Location: [address] Neuro Reading Room Procedure Note Interface, External Ris In - 02/14/2019 6:16 PM CDT FINAL REPORT CT, CTANGIO BRAIN, CT, CAROTID, ANGIO BRAIN CT WITHOUT CONTRAST INDICATION: Stroke l hp COMPARISON: CT head of the same date TECHNIQUE: Rapid acquisition spiral images were obtained between the aortic arch and the cranial vertex during intravenous contrast infusion to reconstruct axial images and angiographic 3D maximum intensity projections (MIP). 3-D volumetric reformatted images were created at a dedicated workstation. Stenosis evaluation reported in compliance with NASCET criteria. DOSE REDUCTION: Dose modulation, iterative reconstruction, and/or weight-based adjustment of the mA/kV was utilized to reduce the radiation dose to as low as reasonably achievable. FINDINGS: CTA BRAIN: Internal carotid arteries: Petrous, cavernous and supraclinoid portions patent. Middle cerebral arteries: Lack of contrast opacification of the right M1 segment, concerning for occlusion. Right distal M2 branches fill minimally, likely secondary to collateral flow. Left MCA M1-M2 branches demonstrate normal contrast enhancement. Anterior cerebral arteries: Bilateral MIGEL A1-A2 branches demonstrate normal contrast enhancement. Basilar system: Normal contrast opacification of the vertebrobasilar system. Posterior cerebral arteries: Normal contrast opacification of the bilateral IT PROJECT COORDINATOR P1-P2 branches. Venous opacification: Major dural sinuses unremarkable for bolus timing. Additional findings: None. CTA NECK: Common carotid arteries: There is normal contrast opacification of the bilateral common carotid arteries. Cervical internal carotid arteries: Normal contrast opacification of the bilateral cervical internal carotid arteries without significant stenosis by NASCET criteria. Vertebral arteries: Normal contrast opacification of the bilateral cervical vertebral arteries. Arch anatomy: Conventional. Nonvascular findings: No acute findings within the neck soft tissues IMPRESSION: Findings regarding right M1 occlusion relayed to ED staff by Dr. Staton 6:13 PM Signed: Gia Staton MD Report Verified Date/Time: 02/14/2019 18:14:44 Reading Location: [address] Neuro Reading Room Performing Organization Address City/[facility] Phone Number [facility] POC-Creatinine (11/14/2018 4:27 PM CDT) POC-Creatinine 1.3Comment: TESTED AT [facility] 0.6 - 1.3 mg/dL [facility] [address] [facility] [address] POC-EGFR 58 mL/min/1.73M2 [facility] Specimen Blood Performing Organization Address City/[facility] Phone Number [address] [address] CENTER INTRAOPERATIVE PATH REPORT - SCAN (10/20/2018 10:00 AM CDT)Only the most recent of4 resultswithin the time period is included. Narrative Performed At after 03/19/2018 Insurance Payer Benefit Plan / Subscriber ID Type Phone Address Group BLUE CROSS/BLUE BCBS PPO POS EPO xxxxxxxxxxxx PPO [phone] [address] [place] [address] Advance Directives For more information, please contact:[address] [phone] Code Status Date Activated Date Inactivated Comments Full Code 02/21/2019 3:25 PM 03/07/2019 1:33 PM This code status was determined by: Patient Full Code 02/21/2019 3:25 PM 02/21/2019 3:25 PM This code status was determined by: Patient Full Code 02/14/2019 6:58 PM 02/21/2019 3:17 PM This code status was determined by: Patient Full Code 01/02/2018 4:21 PM 01/07/2018 7:49 PM This code status was determined by: Patient Full Code 08/16/2017 2:09 PM 08/16/2017 4:18 PM This code status was determined by: Patient
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
--- OUTSIDE RECORDS SUMMARY | 2019-03-20 21:22 | XMS REPORT ---
:1965 [facility] Address [address] [place] [address] Care Team Providers Name Role Phone LORENA REYES Unavailable Unavailable NARENDRA KIM Unavailable Unavailable BERTRAND HERNANDEZ Unavailable Unavailable DANNY SWANSON Unavailable Unavailable Problems This patient has no known problems. Allergies, Adverse Reactions, Alerts This patient has no known allergies or adverse reactions. Medications This patient has no known medications. Results Test Description Test Time Test Comments Text Results Atomic Results Result Comments POTASSIUM 2019-03-07 06:29:00 Test Item Value Reference Range Comments POTASSIUM (BEAKER) (test jrrf=413) 3.8 meq/L 3.5-5.1 Specimen slightly hemolyzed BASIC METABOLIC [id number] 06:24:00 Test Item Value Reference Range Comments SODIUM (BEAKER) (test 140 meq/L 136-145 geut=110) POTASSIUM (BEAKER) (test 3.4 meq/L 3.5-5.1 nvuw=908) CHLORIDE (BEAKER) (test 105 meq/L 98-107 ixkc=007) CO2 (BEAKER) (test 26 meq/L 22-29 ihwx=746) BLOOD UREA NITROGEN 21 mg/dL 7-21 (BEAKER) (test ynef=426) CREATININE (BEAKER) (test 1.23 mg/dL 0.57-1.25 xdsf=802) GLUCOSE RANDOM (BEAKER) 93 mg/dL 70-105 (test uxyg=015) CALCIUM (BEAKER) (test 9.2 mg/dL 8.4-10.2 evdl=944) EGFR (BEAKER) (test 62 mL/min/1.73 sq m ESTIMATED GFR IS NOT wamd=3759) ACCURATE CREATININE CLEARANCE IN PREDICTING GLOMERULAR FILTRATION RATE. ESTIMATED GFR IS NOT APPLICABLE FOR DIALYSIS PATIENTS. CBC W/PLT COUNT & AUTO [id number] 05:59:00 Test Item Value Reference Range Comments WHITE BLOOD CELL COUNT (BEAKER) (test mtvv=110) 7.3 K/ L 3.5-10.5 RED BLOOD CELL COUNT (BEAKER) (test ygbo=782) 4.13 M/ L 4.63-6.08 HEMOGLOBIN (BEAKER) (test iuuo=257) 12.7 GM/DL 13.7-17.5 HEMATOCRIT (BEAKER) (test ezpm=135) 36.7 % 40.1-51.0 MEAN CORPUSCULAR VOLUME (BEAKER) (test enrs=858) 88.9 fL 79.0-92.2 MEAN CORPUSCULAR HEMOGLOBIN (BEAKER) (test 30.8 pg 25.7-32.2 nnzr=612) MEAN CORPUSCULAR HEMOGLOBIN CONC (BEAKER) (test 34.6 GM/DL 32.3-36.5 dqgm=092) RED CELL DISTRIBUTION WIDTH (BEAKER) (test 13.3 % 11.6-14.4 fboy=765) PLATELET COUNT (BEAKER) (test ocbc=611) 195 K/CU MM 150-450 MEAN PLATELET VOLUME (BEAKER) (test pcrt=740) 9.6 fL 9.4-12.4 NEUTROPHILS RELATIVE PERCENT (BEAKER) (test 54 % jebz=657) LYMPHOCYTES RELATIVE PERCENT (BEAKER) (test 27 % bwio=220) MONOCYTES RELATIVE PERCENT (BEAKER) (test 13 % enfs=474) EOSINOPHILS RELATIVE PERCENT (BEAKER) (test 6 % vetb=605) BASOPHILS RELATIVE PERCENT (BEAKER) (test 1 % zimc=283) NEUTROPHILS ABSOLUTE COUNT (BEAKER) (test 3.93 K/ L 1.78-5.38 lqkv=613) LYMPHOCYTES ABSOLUTE COUNT (BEAKER) (test 1.94 K/ L 1.32-3.57 vhrc=213) MONOCYTES ABSOLUTE COUNT (BEAKER) (test 0.91 K/ L 0.30-0.82 fsvt=555) EOSINOPHILS ABSOLUTE COUNT (BEAKER) (test 0.41 K/ L 0.04-0.54 ztmv=139) BASOPHILS ABSOLUTE COUNT (BEAKER) (test 0.08 K/ L 0.01-0.08 phkh=735) IMMATURE GRANULOCYTES-RELATIVE PERCENT (BEAKER) 0 % 0-1 (test hjov=7562) BASIC METABOLIC [id number] 06:02:00 Test Item Value Reference Range Comments SODIUM (BEAKER) (test 140 meq/L 136-145 snff=285) POTASSIUM (BEAKER) (test 3.8 meq/L 3.5-5.1 Specimen slightly xjpf=077) hemolyzed CHLORIDE (BEAKER) (test 102 meq/L 98-107 sdrz=924) CO2 (BEAKER) (test 28 meq/L 22-29 rizf=639) BLOOD UREA NITROGEN 21 mg/dL 7-21 (BEAKER) (test vipc=244) CREATININE (BEAKER) (test 1.25 mg/dL 0.57-1.25 Specimen slightly ogjr=318) hemolyzed GLUCOSE RANDOM (BEAKER) 82 mg/dL 70-105 (test dbqd=355) CALCIUM (BEAKER) (test 8.9 mg/dL 8.4-10.2 bzln=352) EGFR (BEAKER) (test 61 mL/min/1.73 sq m ESTIMATED GFR IS NOT yvwi=3976) ACCURATE CREATININE CLEARANCE IN PREDICTING GLOMERULAR FILTRATION RATE. ESTIMATED GFR IS NOT APPLICABLE FOR DIALYSIS PATIENTS. CBC W/PLT COUNT & AUTO [id number] 05:44:00 Test Item Value Reference Range Comments WHITE BLOOD CELL COUNT (BEAKER) (test ovxq=909) 10.2 K/ L 3.5-10.5 RED BLOOD CELL COUNT (BEAKER) (test nsif=310) 4.23 M/ L 4.63-6.08 HEMOGLOBIN (BEAKER) (test mvqy=313) 13.0 GM/DL 13.7-17.5 HEMATOCRIT (BEAKER) (test zyiw=095) 38.2 % 40.1-51.0 MEAN CORPUSCULAR VOLUME (BEAKER) (test rglz=727) 90.3 fL 79.0-92.2 MEAN CORPUSCULAR HEMOGLOBIN (BEAKER) (test 30.7 pg 25.7-32.2 qfoi=970) MEAN CORPUSCULAR HEMOGLOBIN CONC (BEAKER) (test 34.0 GM/DL 32.3-36.5 rjul=722) RED CELL DISTRIBUTION WIDTH (BEAKER) (test 13.3 % 11.6-14.4 iuzw=203) PLATELET COUNT (BEAKER) (test zzlh=714) 220 K/CU MM 150-450 MEAN PLATELET VOLUME (BEAKER) (test jnnw=431) 10.0 fL 9.4-12.4 NEUTROPHILS RELATIVE PERCENT (BEAKER) (test 66 % syls=515) LYMPHOCYTES RELATIVE PERCENT (BEAKER) (test 18 % dinc=973) MONOCYTES RELATIVE PERCENT (BEAKER) (test 12 % vrbn=246) EOSINOPHILS RELATIVE PERCENT (BEAKER) (test 3 % surp=027) BASOPHILS RELATIVE PERCENT (BEAKER) (test 1 % dlyt=878) NEUTROPHILS ABSOLUTE COUNT (BEAKER) (test 6.77 K/ L 1.78-5.38 dmtt=252) LYMPHOCYTES ABSOLUTE COUNT (BEAKER) (test 1.88 K/ L 1.32-3.57 bngc=450) MONOCYTES ABSOLUTE COUNT (BEAKER) (test 1.21 K/ L 0.30-0.82 extj=111) EOSINOPHILS ABSOLUTE COUNT (BEAKER) (test 0.30 K/ L 0.04-0.54 gpok=920) BASOPHILS ABSOLUTE COUNT (BEAKER) (test 0.06 K/ L 0.01-0.08 qygt=718) IMMATURE GRANULOCYTES-RELATIVE PERCENT (BEAKER) 0 % 0-1 (test ndis=0099) URINALYSIS W/ REFLEX URINE [id number] 14:59:00 Test Item Value Reference Range Comments COLOR (BEAKER) (test soes=703) Yellow CLARITY (BEAKER) (test uyxz=632) Slightly Cloudy SPECIFIC GRAVITY UA (BEAKER) (test jqoo=574) 1.015 1.005-1.030 PH UA (BEAKER) (test lcwe=349) 6.0 5.0-9.0 PROTEIN UA (BEAKER) (test zeii=807) 30 mg/dL Negative GLUCOSE UA (BEAKER) (test sbux=021) Negative Negative KETONES UA (BEAKER) (test eers=341) Negative Negative BILIRUBIN UA (BEAKER) (test zflt=531) Negative Negative BLOOD UA (BEAKER) (test fwmz=001) Large Negative NITRITE UA (BEAKER) (test pemc=654) Negative Negative LEUKOCYTE ESTERASE UA (BEAKER) (test Large Negative zxro=530) UROBILINOGEN UA (BEAKER) (test eahy=220) 0.2 mg/dL 0.2-1.0 BACTERIA (BEAKER) (test mwfq=657) Many RBC UA-MANUAL (BEAKER) (test dgum=1228) 20-50 /HPF WBC UA-MANUAL (BEAKER) (test nctc=6352) >100 /HPF SQUAMOUS EPITHELIAL MANUAL (BEAKER) (test <5 /HPF oivk=2610) SOURCE(BEAKER) (test frfh=6015) BASIC METABOLIC [id number] 05:28:00 Test Item Value Reference Range Comments SODIUM (BEAKER) (test 140 meq/L 136-145 klun=633) POTASSIUM (BEAKER) (test 3.8 meq/L 3.5-5.1 Specimen slightly uchu=896) hemolyzed CHLORIDE (BEAKER) (test 103 meq/L 98-107 duan=759) CO2 (BEAKER) (test 30 meq/L 22-29 xnaf=672) BLOOD UREA NITROGEN 27 mg/dL 7-21 (BEAKER) (test nwrz=554) CREATININE (BEAKER) (test 1.36 mg/dL 0.57-1.25 Specimen slightly rnwe=968) hemolyzed GLUCOSE RANDOM (BEAKER) 96 mg/dL 70-105 (test bodw=439) CALCIUM (BEAKER) (test 9.2 mg/dL 8.4-10.2 xolh=164) EGFR (BEAKER) (test 55 mL/min/1.73 sq m ESTIMATED GFR IS NOT khvz=6551) ACCURATE CREATININE CLEARANCE IN PREDICTING GLOMERULAR FILTRATION RATE. ESTIMATED GFR IS NOT APPLICABLE FOR DIALYSIS PATIENTS. Specimen slightly ictericCBC W/PLT COUNT & AUTO [id number] 05:05 :00 Test Item Value Reference Range Comments WHITE BLOOD CELL COUNT (BEAKER) (test gobm=883) 9.9 K/ L 3.5-10.5 RED BLOOD CELL COUNT (BEAKER) (test xvrr=775) 4.09 M/ L 4.63-6.08 HEMOGLOBIN (BEAKER) (test jkmi=789) 12.4 GM/DL 13.7-17.5 HEMATOCRIT (BEAKER) (test zlkg=063) 36.9 % 40.1-51.0 MEAN CORPUSCULAR VOLUME (BEAKER) (test qwbu=902) 90.2 fL 79.0-92.2 MEAN CORPUSCULAR HEMOGLOBIN (BEAKER) (test 30.3 pg 25.7-32.2 vtor=289) MEAN CORPUSCULAR HEMOGLOBIN CONC (BEAKER) (test 33.6 GM/DL 32.3-36.5 bqte=783) RED CELL DISTRIBUTION WIDTH (BEAKER) (test 13.0 % 11.6-14.4 ppmf=354) PLATELET COUNT (BEAKER) (test doow=604) 218 K/CU MM 150-450 MEAN PLATELET VOLUME (BEAKER) (test bvpe=350) 9.4 fL 9.4-12.4 NEUTROPHILS RELATIVE PERCENT (BEAKER) (test 64 % oexq=866) LYMPHOCYTES RELATIVE PERCENT (BEAKER) (test 21 % vraz=881) MONOCYTES RELATIVE PERCENT (BEAKER) (test 9 % btdm=544) EOSINOPHILS RELATIVE PERCENT (BEAKER) (test 4 % smrx=607) BASOPHILS RELATIVE PERCENT (BEAKER) (test 1 % rkuk=182) NEUTROPHILS ABSOLUTE COUNT (BEAKER) (test 6.38 K/ L 1.78-5.38 mouv=139) LYMPHOCYTES ABSOLUTE COUNT (BEAKER) (test 2.09 K/ L 1.32-3.57 ykjg=300) MONOCYTES ABSOLUTE COUNT (BEAKER) (test 0.93 K/ L 0.30-0.82 drkw=938) EOSINOPHILS ABSOLUTE COUNT (BEAKER) (test 0.43 K/ L 0.04-0.54 upmk=159) BASOPHILS ABSOLUTE COUNT (BEAKER) (test 0.08 K/ L 0.01-0.08 vnmk=238) IMMATURE GRANULOCYTES-RELATIVE PERCENT (BEAKER) 0 % 0-1 (test cihg=5663) URINALYSIS [id number] 13:39:00 Test Item Value Reference Range Comments RBC UA (BEAKER) (test dacl=377) 20 /HPF WBC UA (BEAKER) (test podk=759) > /HPF BACTERIA (BEAKER) (test qlvz=006) Many SQUAMOUS EPITHELIAL (BEAKER) (test gjje=568) < /HPF URINALYSIS WITH MICROSCOPIC IF [id number] 13:39:00 Test Item Value Reference Range Comments COLOR (BEAKER) (test gkop=461) Yellow CLARITY (BEAKER) (test rano=610) Cloudy SPECIFIC GRAVITY UA (BEAKER) (test lwsy=227) 1.015 1.005-1.030 PH UA (BEAKER) (test gnwx=446) 6.5 5.0-9.0 PROTEIN UA (BEAKER) (test ackl=128) 100 mg/dL Negative GLUCOSE UA (BEAKER) (test uere=121) Negative Negative KETONES UA (BEAKER) (test hcff=185) Negative Negative BILIRUBIN UA (BEAKER) (test fjqk=872) Negative Negative BLOOD UA (BEAKER) (test mpeb=994) Large Negative NITRITE UA (BEAKER) (test cfrp=157) Negative Negative LEUKOCYTE ESTERASE UA (BEAKER) (test autc=382) Moderate Negative UROBILINOGEN UA (BEAKER) (test bicq=703) 0.2 mg/dL 0.2-1.0 SOURCE(BEAKER) (test qtov=7244) RAD, ABDOMEN/KUB, 1 VIEW [id number] 22:26:00Reason for exam:->back pain, constipationShould this be performed at the bedside?->YesFINAL REPORT CLINICAL HISTORY: Back pain and constipation COMPARISON : None. FINDINGS: A single supine view views of the abdomen is submitted. The abdominal bowel gas pattern is unobstructed. There is no focus of dilated large or small bowel. The fecal burden is normal. There isno evidence of organomegaly or significant ascites. Multiple surgical clips overlie the lower abdomen and pelvis. There is no acute bony abnormality. Signed: Danny Mccurdy MDReport Verified Date/Time:02/24/2019 22:26:00 Reading Location: [address] Reading Room Electronically signed by: DANNY MCCURDY M.D. on 10:[address] [facility] [id number] 06:16:00 Test Item Value Reference Range Comments TOTAL PROTEIN (BEAKER) 6.4 gm/dL 6.0-8.3 (test vdfm=147) ALBUMIN (BEAKER) (test 4.0 g/dL 3.5-5.0 ndkw=5296) ALKALINE PHOSPHATASE 110 U/L 40-150 (BEAKER) (test tshe=966) BILIRUBIN TOTAL (BEAKER) 1.4 mg/dL 0.2-1.2 (test mppn=951) SODIUM (BEAKER) (test 142 meq/L 136-145 zzus=583) POTASSIUM (BEAKER) (test 3.6 meq/L 3.5-5.1 zcmh=811) CHLORIDE (BEAKER) (test 104 meq/L 98-107 bxsj=210) CO2 (BEAKER) (test 29 meq/L 22-29 cfsi=647) BLOOD UREA NITROGEN 14 mg/dL 7-21 (BEAKER) (test skwo=790) CREATININE (BEAKER) (test 1.11 mg/dL 0.57-1.25 hxhz=690) GLUCOSE RANDOM (BEAKER) 86 mg/dL 70-105 (test acxx=470) CALCIUM (BEAKER) (test 8.7 mg/dL 8.4-10.2 jnwj=649) AST (SGOT) (BEAKER) (test 47 U/L 5-34 hiti=465) ALT (SGPT) (BEAKER) (test 35 U/L 6-55 zply=570) EGFR (BEAKER) (test 70 mL/min/1.73 sq m ESTIMATED GFR IS NOT hhhm=4910) ACCURATE CREATININE CLEARANCE IN PREDICTING GLOMERULAR FILTRATION RATE. ESTIMATED GFR IS NOT APPLICABLE FOR DIALYSIS PATIENTS. CBC W/PLT COUNT & AUTO [id number] 05:59:00 Test Item Value Reference Range Comments WHITE BLOOD CELL COUNT (BEAKER) (test vujy=656) 6.1 K/ L 3.5-10.5 RED BLOOD CELL COUNT (BEAKER) (test ghqj=962) 4.04 M/ L 4.63-6.08 HEMOGLOBIN (BEAKER) (test sdgi=398) 12.2 GM/DL 13.7-17.5 HEMATOCRIT (BEAKER) (test nmit=940) 36.2 % 40.1-51.0 MEAN CORPUSCULAR VOLUME (BEAKER) (test ofsb=815) 89.6 fL 79.0-92.2 MEAN CORPUSCULAR HEMOGLOBIN (BEAKER) (test 30.2 pg 25.7-32.2 wonv=557) MEAN CORPUSCULAR HEMOGLOBIN CONC (BEAKER) (test 33.7 GM/DL 32.3-36.5 momt=976) RED CELL DISTRIBUTION WIDTH (BEAKER) (test 12.6 % 11.6-14.4 mylh=855) PLATELET COUNT (BEAKER) (test acon=957) 182 K/CU MM 150-450 MEAN PLATELET VOLUME (BEAKER) (test bjng=833) 9.8 fL 9.4-12.4 NEUTROPHILS RELATIVE PERCENT (BEAKER) (test 51 % cgai=257) LYMPHOCYTES RELATIVE PERCENT (BEAKER) (test 33 % avhx=851) MONOCYTES RELATIVE PERCENT (BEAKER) (test 9 % sirt=338) EOSINOPHILS RELATIVE PERCENT (BEAKER) (test 6 % pvup=751) BASOPHILS RELATIVE PERCENT (BEAKER) (test 1 % gyyw=614) NEUTROPHILS ABSOLUTE COUNT (BEAKER) (test 3.08 K/ L 1.78-5.38 ngps=754) LYMPHOCYTES ABSOLUTE COUNT (BEAKER) (test 1.98 K/ L 1.32-3.57 qelg=846) MONOCYTES ABSOLUTE COUNT (BEAKER) (test 0.55 K/ L 0.30-0.82 idxm=054) EOSINOPHILS ABSOLUTE COUNT (BEAKER) (test 0.35 K/ L 0.04-0.54 qicj=850) BASOPHILS ABSOLUTE COUNT (BEAKER) (test 0.07 K/ L 0.01-0.08 jjcu=642) IMMATURE GRANULOCYTES-RELATIVE PERCENT (BEAKER) 0 % 0-1 (test bkxj=7778) [id number] 06:58:00 Test Item Value Reference Range Comments PHOSPHORUS (BEAKER) (test jxxv=049) 4.1 mg/dL 2.3-4.7 [id number] 06:58:00 Test Item Value Reference Range Comments MAGNESIUM (BEAKER) (test xdip=217) 2.1 mg/dL 1.6-2.6 BASIC METABOLIC [id number] 06:58:00 Test Item Value Reference Range Comments SODIUM (BEAKER) (test 140 meq/L 136-145 xovf=898) POTASSIUM (BEAKER) (test 3.8 meq/L 3.5-5.1 qviw=771) CHLORIDE (BEAKER) (test 105 meq/L 98-107 ipcg=072) CO2 (BEAKER) (test 25 meq/L 22-29 ecdm=450) BLOOD UREA NITROGEN 19 mg/dL 7-21 (BEAKER) (test tuag=659) CREATININE (BEAKER) (test 1.09 mg/dL 0.57-1.25 bozd=247) GLUCOSE RANDOM (BEAKER) 90 mg/dL 70-105 (test blbf=424) CALCIUM (BEAKER) (test 8.9 mg/dL 8.4-10.2 mehy=456) EGFR (BEAKER) (test 71 mL/min/1.73 sq m ESTIMATED GFR IS NOT ygtp=3996) ACCURATE CREATININE CLEARANCE IN PREDICTING GLOMERULAR FILTRATION RATE. ESTIMATED GFR IS NOT APPLICABLE FOR DIALYSIS PATIENTS. CBC W/PLT COUNT & AUTO [id number] 05:37:00 Test Item Value Reference Range Comments WHITE BLOOD CELL COUNT (BEAKER) (test nufh=572) 5.7 K/ L 3.5-10.5 RED BLOOD CELL COUNT (BEAKER) (test icvt=472) 3.87 M/ L 4.63-6.08 HEMOGLOBIN (BEAKER) (test rwly=432) 11.6 GM/DL 13.7-17.5 HEMATOCRIT (BEAKER) (test xuzs=727) 35.4 % 40.1-51.0 MEAN CORPUSCULAR VOLUME (BEAKER) (test kgei=199) 91.5 fL 79.0-92.2 MEAN CORPUSCULAR HEMOGLOBIN (BEAKER) (test 30.0 pg 25.7-32.2 lxzi=460) MEAN CORPUSCULAR HEMOGLOBIN CONC (BEAKER) (test 32.8 GM/DL 32.3-36.5 futc=120) RED CELL DISTRIBUTION WIDTH (BEAKER) (test 12.8 % 11.6-14.4 nggv=484) PLATELET COUNT (BEAKER) (test xonk=799) 150 K/CU MM 150-450 MEAN PLATELET VOLUME (BEAKER) (test nenl=262) 10.3 fL 9.4-12.4 NUCLEATED RED BLOOD CELLS (BEAKER) (test 0 /100 WBC 0-0 rolp=762) NEUTROPHILS RELATIVE PERCENT (BEAKER) (test 51 % uitf=583) LYMPHOCYTES RELATIVE PERCENT (BEAKER) (test 32 % ovcg=628) MONOCYTES RELATIVE PERCENT (BEAKER) (test 10 % lkor=996) EOSINOPHILS RELATIVE PERCENT (BEAKER) (test 6 % iain=189) BASOPHILS RELATIVE PERCENT (BEAKER) (test 1 % reie=083) NEUTROPHILS ABSOLUTE COUNT (BEAKER) (test 2.90 K/ L 1.78-5.38 toza=937) LYMPHOCYTES ABSOLUTE COUNT (BEAKER) (test 1.85 K/ L 1.32-3.57 fplj=197) MONOCYTES ABSOLUTE COUNT (BEAKER) (test 0.56 K/ L 0.30-0.82 kgjs=174) EOSINOPHILS ABSOLUTE COUNT (BEAKER) (test 0.35 K/ L 0.04-0.54 ccvg=593) BASOPHILS ABSOLUTE COUNT (BEAKER) (test 0.05 K/ L 0.01-0.08 wmun=624) IMMATURE GRANULOCYTES-RELATIVE PERCENT (BEAKER) 0 % 0-1 (test shhz=2513) BLOOD [id number] 08:01:00 Test Item Value Reference Range Comments CULTURE (BEAKER) (test ofhf=7494) No growth in 5 days BLOOD [id number] 08:01:00 Test Item Value Reference Range Comments CULTURE (BEAKER) (test ytjd=8238) No growth in 5 days [id number] 05:17:00 Test Item Value Reference Range Comments PHOSPHORUS (BEAKER) (test wkfn=269) 4.4 mg/dL 2.3-4.7 [id number] 05:17:00 Test Item Value Reference Range Comments MAGNESIUM (BEAKER) (test jctn=277) 2.0 mg/dL 1.6-2.6 BASIC METABOLIC [id number] 05:17:00 Test Item Value Reference Range Comments SODIUM (BEAKER) (test 141 meq/L 136-145 rxpz=940) POTASSIUM (BEAKER) (test 3.5 meq/L 3.5-5.1 okyk=761) CHLORIDE (BEAKER) (test 105 meq/L 98-107 dkmp=286) CO2 (BEAKER) (test 30 meq/L 22-29 qtto=757) BLOOD UREA NITROGEN 18 mg/dL 7-21 (BEAKER) (test hxym=435) CREATININE (BEAKER) (test 0.98 mg/dL 0.57-1.25 xpti=479) GLUCOSE RANDOM (BEAKER) 97 mg/dL 70-105 (test edgk=183) CALCIUM (BEAKER) (test 8.9 mg/dL 8.4-10.2 fwee=575) EGFR (BEAKER) (test 80 mL/min/1.73 sq m ESTIMATED GFR IS NOT yovv=9335) ACCURATE CREATININE CLEARANCE IN PREDICTING GLOMERULAR FILTRATION RATE. ESTIMATED GFR IS NOT APPLICABLE FOR DIALYSIS PATIENTS. CBC W/PLT COUNT & AUTO [id number] 04:43:00 Test Item Value Reference Range Comments WHITE BLOOD CELL COUNT (BEAKER) (test gget=124) 5.0 K/ L 3.5-10.5 RED BLOOD CELL COUNT (BEAKER) (test qezu=543) 3.84 M/ L 4.63-6.08 HEMOGLOBIN (BEAKER) (test xpda=650) 11.6 GM/DL 13.7-17.5 HEMATOCRIT (BEAKER) (test pvzn=004) 33.8 % 40.1-51.0 MEAN CORPUSCULAR VOLUME (BEAKER) (test ejvn=852) 88.0 fL 79.0-92.2 MEAN CORPUSCULAR HEMOGLOBIN (BEAKER) (test 30.2 pg 25.7-32.2 wcll=563) MEAN CORPUSCULAR HEMOGLOBIN CONC (BEAKER) (test 34.3 GM/DL 32.3-36.5 lxsu=608) RED CELL DISTRIBUTION WIDTH (BEAKER) (test 12.6 % 11.6-14.4 rveu=512) PLATELET COUNT (BEAKER) (test lnsi=232) 131 K/CU MM 150-450 MEAN PLATELET VOLUME (BEAKER) (test ojov=375) 10.2 fL 9.4-12.4 NUCLEATED RED BLOOD CELLS (BEAKER) (test 0 /100 WBC 0-0 zdfi=469) NEUTROPHILS RELATIVE PERCENT (BEAKER) (test 45 % nbxq=016) LYMPHOCYTES RELATIVE PERCENT (BEAKER) (test 39 % utjg=101) MONOCYTES RELATIVE PERCENT (BEAKER) (test 9 % harp=343) EOSINOPHILS RELATIVE PERCENT (BEAKER) (test 7 % zbng=362) BASOPHILS RELATIVE PERCENT (BEAKER) (test 1 % agqz=747) NEUTROPHILS ABSOLUTE COUNT (BEAKER) (test 2.26 K/ L 1.78-5.38 blla=601) LYMPHOCYTES ABSOLUTE COUNT (BEAKER) (test 1.94 K/ L 1.32-3.57 enti=693) MONOCYTES ABSOLUTE COUNT (BEAKER) (test 0.46 K/ L 0.30-0.82 mhas=909) EOSINOPHILS ABSOLUTE COUNT (BEAKER) (test 0.33 K/ L 0.04-0.54 setw=246) BASOPHILS ABSOLUTE COUNT (BEAKER) (test 0.04 K/ L 0.01-0.08 cnug=755) IMMATURE GRANULOCYTES-RELATIVE PERCENT (BEAKER) 0 % 0-1 (test mskf=7304) NV, ANGIOGRAM, [id number] 13:20:00Reason for exam:->CEREBROVASCULAR ACCIDENTFINAL REPORT DATE: 02/14/2019 SURGEON: Adina Khan M.D. [employer]INTENA[employer]CE ENGINEER: Ruchi Pacheco M.D. PREOPERATIVE DIAGNOSIS: Right MCA (M1) occlusion POST OPERATIVE DIAGNOSIS: Right MCA occlusion s/p successful recanalization OPERATION: 1) CEREBRAL ANGIOGRAM2) Mechanical embolectomy of themiddle cerebral artery thrombus ANESTHESIA: MAC ESTIMATED BLOOD LOSS: 75cc COMPLICATIONS: None INDICATIONS: The patient is a 53 year old male with history of bladder and prostate cancer who presented to the ER with acute onset right sided weakness, found to have right M1 occlusion and brought foremergent thrombectomy. PROCEDURE: The patient was unable to [...] femoral artery was performed and a 8 Malaysian short sheath was inserted and placed on heparinized flush. An 8 Malaysian Infinity long sheath was advanced into the [...] zone. The internal carotid artery otherwise has normalcourse and appearance. There is normal anterograde flow into the anterior cerebral artery with cross-filling into the contralateral MIGEL territory. There is an occlusion of the right M1 middle cerebral artery just distal to the bifurcation. ENDOVASCULAR INTERVENTION: A roadmap was obtained and a triaxial system comprising an 8 Malaysian Infinity guide catheter, an Catalyst 7 distal [...] in the same location. This time a [id number] x 30mm stent retriever was positioned across the area of thrombus and deployed. After four minutes the stent retriever was removed with dual simultaneous aspiration technique, flow arrest, and trapping of the clot with the distal access catheter. The distal access catheter and stent retriever werelocked and removed together into the guide catheter. Angiogram via the right internal carotid arteryshowed reestablished flow, TICI 2a, in the MCA distribution. Whole head and angiograms demonstratedno untoward findings. The catheters were removed. The 8 Malaysian sheath was removed. Hemostasis was achieved with [...] technical or clinical complications. Signed: Adina Khan MDReport Verified Date/Time: 02/19/2019 13:20:54 Reading Location: [place] [address] [facility] Ang[facility] Reading Room [id number] 08:50:00 Test Item Value Reference Range Comments PHOSPHORUS (BEAKER) (test uttc=397) 3.9 mg/dL 2.3-4.7 [id number] 08:50:00 Test Item Value Reference Range Comments MAGNESIUM (BEAKER) (test vhpq=230) 2.1 mg/dL 1.6-2.6 BASIC METABOLIC [id number] 08:50:00 Test Item Value Reference Range Comments SODIUM (BEAKER) (test 137 meq/L 136-145 llxr=971) POTASSIUM (BEAKER) (test 3.8 meq/L 3.5-5.1 dran=621) CHLORIDE (BEAKER) (test 102 meq/L 98-107 khiw=225) CO2 (BEAKER) (test 24 meq/L 22-29 emzm=513) BLOOD UREA NITROGEN 15 mg/dL 7-21 (BEAKER) (test zseo=840) CREATININE (BEAKER) (test 0.98 mg/dL 0.57-1.25 yfzb=043) GLUCOSE RANDOM (BEAKER) 95 mg/dL 70-105 (test sjnd=283) CALCIUM (BEAKER) (test 9.0 mg/dL 8.4-10.2 rsbi=779) EGFR (BEAKER) (test 80 mL/min/1.73 sq m ESTIMATED GFR IS NOT rugh=2065) ACCURATE CREATININE CLEARANCE IN PREDICTING GLOMERULAR FILTRATION RATE. ESTIMATED GFR IS NOT APPLICABLE FOR DIALYSIS PATIENTS. CBC W/PLT COUNT & AUTO [id number] 08:10:00 Test Item Value Reference Range Comments WHITE BLOOD CELL COUNT 4.2 K/ L 3.5-10.5 (BEAKER) (test vrzj=207) RED BLOOD CELL COUNT (BEAKER) 4.11 M/ L 4.63-6.08 (test qdta=838) HEMOGLOBIN (BEAKER) (test 12.4 GM/DL 13.7-17.5 ypho=770) HEMATOCRIT (BEAKER) (test 35.8 % 40.1-51.0 uylr=909) MEAN CORPUSCULAR VOLUME 87.1 fL 79.0-92.2 Discordant result compares (BEAKER) (test wilx=336) with previous; clinical correlation requires. MEAN CORPUSCULAR HEMOGLOBIN 30.2 pg 25.7-32.2 (BEAKER) (test zbkn=387) MEAN CORPUSCULAR HEMOGLOBIN 34.6 GM/DL 32.3-36.5 CONC (BEAKER) (test qngv=067) RED CELL DISTRIBUTION WIDTH 12.4 % 11.6-14.4 (BEAKER) (test xytg=091) PLATELET COUNT (BEAKER) (test 104 K/CU MM 150-450 fgph=627) MEAN PLATELET VOLUME (BEAKER) 10.2 fL 9.4-12.4 (test rjmr=953) NUCLEATED RED BLOOD CELLS 0 /100 WBC 0-0 (BEAKER) (test eval=740) NEUTROPHILS RELATIVE PERCENT 48 % (BEAKER) (test kfyk=483) LYMPHOCYTES RELATIVE PERCENT 34 % (BEAKER) (test gbfc=244) MONOCYTES RELATIVE PERCENT 10 % (BEAKER) (test dyyf=045) EOSINOPHILS RELATIVE PERCENT 7 % (BEAKER) (test ncjm=119) BASOPHILS RELATIVE PERCENT 1 % (BEAKER) (test xiwl=662) NEUTROPHILS ABSOLUTE COUNT 2.03 K/ L 1.78-5.38 (BEAKER) (test ygst=243) LYMPHOCYTES ABSOLUTE COUNT 1.45 K/ L 1.32-3.57 (BEAKER) (test hruh=800) MONOCYTES ABSOLUTE COUNT 0.43 K/ L 0.30-0.82 (BEAKER) (test nswq=524) EOSINOPHILS ABSOLUTE COUNT 0.28 K/ L 0.04-0.54 (BEAKER) (test ibgw=852) BASOPHILS ABSOLUTE COUNT 0.04 K/ L 0.01-0.08 (BEAKER) (test pigb=439) IMMATURE 0 % 0-1 GRANULOCYTES-RELATIVE PERCENT (BEAKER) (test mclj=2143) CT, CHEST, WITH [id number] 09:37:00FINAL REPORT CT Chest, abdomen, and pelvis with contrast History: Bladder cancer Comparison: 11/14/2018 Technique: serial axial imaging was performed following up to 100cc of non ionic iodinated intravenous contrast as per departmental protocol. Multiplanar images are reconstructed and reviewed when indicated. This CT examination is performed using one or more of the followingdose reduction techniques: Automated exposure control, adjustment of the mA and /or kV according to patient size, and/or use of iterative reconstruction technique. Findings:No mediastinal or hilar lymphadenopathy. Normal size heart. No pericardial effusion. No thoracic aortic aneurysm or dissection. No central pulmonary arterial filling defect. Patent central airways. No pleural effusion orpneumothorax. Clear lungs. Unremarkable appearance of pancreas and spleen. Unremarkable appearance of liver and gallbladder. Unremarkable appearance of the adrenal glands and kidneys. The patientis status post radical cystectomy with bladder reconstruction. . No small or large bowel obstruction. No apparent bowel wall thickening. No findings to indicate acute appendicitis. No free fluid or lymphadenopathy. No abdominal aortic aneurysm. Stable fat-containing ventral hernia. No aggressive osseous lesion. Chronic fractures of the left scapula and left posterior third through seventhribs. Impression:No evidence of metastatic disease in the chest, abdomen , or pelvis. Signed: Adan Talley MDReport Verified Date/Time: 2018 09:37:19 Reading Location: [address] Consult Reading Room CT, [id number] 09:37:00FINAL REPORT CT Chest, abdomen , and pelvis with contrast History: Bladder cancer Comparison: 11/14/2018 Technique: serial axial imaging was performed following up to 100cc of non ionic iodinated intravenous contrast as per departmental protocol. Multiplanar images are reconstructed and reviewed when indicated. This CT examination is performed using one or more of the followingdose reduction techniques: Automated exposure control, adjustment of the mA and /or kV according to patient size, and/or use of iterative reconstruction technique. Findings:No mediastinal or hilar lymphadenopathy. Normal size heart. No pericardial effusion. No thoracic aortic aneurysm or dissection. No central pulmonary arterial filling defect. Patent central airways. No pleural effusion orpneumothorax. Clear lungs. Unremarkable appearance of pancreas and spleen. Unremarkable appearance of liver and gallbladder. Unremarkable appearance of the adrenal glands and kidneys. The patientis status post radical cystectomy with bladder reconstruction. . No small or large bowel obstruction. No apparent bowel wall thickening. No findings to indicate acute appendicitis. No free fluid or lymphadenopathy. No abdominal aortic aneurysm. Stable fat- containing ventral hernia. No aggressive osseous lesion. Chronic fractures of the left scapula and left posterior third through seventhribs. Impression:No evidence of metastatic disease in the chest, abdomen, or pelvis. Signed: Adan Talley MDReport Verified Date/Time: 02/18/2019 09:37:19 Reading Location: [facility] C0X Ortho Consult Reading Room POCT-GLUCOSE [id number] 12:31:00 Test Item Value Reference Range Comments POC-GLUCOSE METER (BEAKER) 94 mg/dL 70-110 TESTED AT [address] (test hfxc=0884) [facility] [address] POCT-GLUCOSE [id number] 06:34:00 Test Item Value Reference Range Comments POC-GLUCOSE METER (BEAKER) 94 mg/dL 70-110 TESTED AT [address] (test isxh=3069) [place] [id number] 06:10:00 Test Item Value Reference Range Comments PHOSPHORUS (BEAKER) (test gofl=909) 2.5 mg/dL 2.3-4.7 [id number] 06:10:00 Test Item Value Reference Range Comments MAGNESIUM (BEAKER) (test zljp=178) 2.0 mg/dL 1.6-2.6 BASIC METABOLIC [id number] 06:10:00 Test Item Value Reference Range Comments SODIUM (BEAKER) (test 139 meq/L 136-145 udql=512) POTASSIUM (BEAKER) (test 4.0 meq/L 3.5-5.1 jkpw=975) CHLORIDE (BEAKER) (test 109 meq/L 98-107 gipu=750) CO2 (BEAKER) (test 23 meq/L 22-29 tdjw=658) BLOOD UREA NITROGEN 15 mg/dL 7-21 (BEAKER) (test jbgo=244) CREATININE (BEAKER) (test 0.89 mg/dL 0.57-1.25 gjmz=316) GLUCOSE RANDOM (BEAKER) 93 mg/dL 70-105 (test sxme=325) CALCIUM (BEAKER) (test 8.1 mg/dL 8.4-10.2 ihny=826) EGFR (BEAKER) (test 90 mL/min/1.73 sq m ESTIMATED GFR IS NOT eqsx=1173) ACCURATE CREATININE CLEARANCE IN PREDICTING GLOMERULAR FILTRATION RATE. ESTIMATED GFR IS NOT APPLICABLE FOR DIALYSIS PATIENTS. TROPONIN [id number] 05:43:00 Test Item Value Reference Range Comments TROPONIN I (BEAKER) (test rcdd=503) 0.09 ng/mL 0.00-0.03 Troponin I (TnI) levels must be interpreted in the context of the presenting symptoms and the clinical findings. Elevated TnI levels indicate myocardial damage, but are not specific for ischemic heart disease. Elevated TnI levels are seen in patients with other cardiac conditions (including myocarditis and congestive heart failure), and slight TnI elevations occur in patients with other conditions, including sepsis, renal failure, acidosis, acute neurological disease, and persistent tachyarrhythmia.LACTIC ACID, [id number] 05:24:00 Test Item Value Reference Range Comments LACTATE BLOOD VENOUS (2) (BEAKER) (test 0.5 mmol/L 0.5-2.2 xcrc=0531) CBC W/PLT COUNT & AUTO [id number] 04:16:00 Test Item Value Reference Range Comments WHITE BLOOD CELL COUNT (BEAKER) (test uhze=019) 5.5 K/ L 3.5-10.5 RED BLOOD CELL COUNT (BEAKER) (test jmcx=951) 3.28 M/ L 4.63-6.08 HEMOGLOBIN (BEAKER) (test iygf=367) 10.0 GM/DL 13.7-17.5 HEMATOCRIT (BEAKER) (test lmhw=262) 30.0 % 40.1-51.0 MEAN CORPUSCULAR VOLUME (BEAKER) (test xuqa=021) 91.5 fL 79.0-92.2 MEAN CORPUSCULAR HEMOGLOBIN (BEAKER) (test 30.5 pg 25.7-32.2 nsdl=801) MEAN CORPUSCULAR HEMOGLOBIN CONC (BEAKER) (test 33.3 GM/DL 32.3-36.5 xoxn=670) RED CELL DISTRIBUTION WIDTH (BEAKER) (test 12.5 % 11.6-14.4 podf=052) PLATELET COUNT (BEAKER) (test epge=167) 62 K/CU MM 150-450 MEAN PLATELET VOLUME (BEAKER) (test emrb=696) 9.9 fL 9.4-12.4 NUCLEATED RED BLOOD CELLS (BEAKER) (test 0 /100 WBC 0-0 fuzj=727) NEUTROPHILS RELATIVE PERCENT (BEAKER) (test 54 % dawl=635) LYMPHOCYTES RELATIVE PERCENT (BEAKER) (test 26 % gbaj=599) MONOCYTES RELATIVE PERCENT (BEAKER) (test 14 % syoy=355) EOSINOPHILS RELATIVE PERCENT (BEAKER) (test 6 % qzks=732) BASOPHILS RELATIVE PERCENT (BEAKER) (test 1 % oprs=391) NEUTROPHILS ABSOLUTE COUNT (BEAKER) (test 2.99 K/ L 1.78-5.38 szun=783) LYMPHOCYTES ABSOLUTE COUNT (BEAKER) (test 1.41 K/ L 1.32-3.57 rqpu=839) MONOCYTES ABSOLUTE COUNT (BEAKER) (test gesk=615) 0.74 K/ L 0.30-0.82 EOSINOPHILS ABSOLUTE COUNT (BEAKER) (test 0.32 K/ L 0.04-0.54 wzrs=375) BASOPHILS ABSOLUTE COUNT (BEAKER) (test rrzu=053) 0.03 K/ L 0.01-0.08 IMMATURE GRANULOCYTES-RELATIVE PERCENT (BEAKER) 0 % 0-1 (test tzsz=0915) POCT-GLUCOSE [id number] 00:26:00 Test Item Value Reference Range Comments POC-GLUCOSE METER (BEAKER) 101 mg/dL 70-110 TESTED AT [address] (test qqge=8686) [facility] [address] TROPONIN [id number] 18:22:00 Test Item Value Reference Range Comments TROPONIN I (BEAKER) (test dvad=758) 0.09 ng/mL 0.00-0.03 Troponin I (TnI) levels must be interpreted in the context of the presenting symptoms and the clinical findings. Elevated TnI levels indicate myocardial damage, but are not specific for ischemic heart disease. Elevated TnI levels are seen in patients with other cardiac conditions (including myocarditis and congestive heart failure), and slight TnI elevations occur in patients with other conditions, including sepsis, renal failure, acidosis, acute neurological disease, and persistent tachyarrhythmia.[id number] 18:04:00 Test Item Value Reference Range Comments FIBRINOGEN LEVEL (JACQUELINEAKER) (test cych=543) 359 mg/dl 225-434 POCT-GLUCOSE [id number] 17:25:00 Test Item Value Reference Range Comments POC-GLUCOSE METER (BEAKER) 83 mg/dL 70-110 TESTED AT [address] (test fpce=0888) [place] [address] [id number] 16:12:00 Test Item Value Reference Range Comments MAGNESIUM (BEAKER) (test exmv=588) 2.2 mg/dL 1.6-2.6 PERIPHERAL BLOOD SMEAR - HOLD [id number] 14:21:00 Test Item Value Reference Range Comments PERIPHERAL SMEAR SAVE (BEAKER) (test mcva=9867) saved TROPONIN [id number] 13:17:00 Test Item Value Reference Range Comments TROPONIN I (BEAKER) (test wwkp=549) 0.09 ng/mL 0.00-0.03 Troponin I (TnI) levels must be interpreted in the context of the presenting symptoms and the clinical findings. Elevated TnI levels indicate myocardial damage, but are not specific for ischemic heart disease. Elevated TnI levels are seen in patients with other cardiac conditions (including myocarditis and congestive heart failure), and slight TnI elevations occur in patients with other conditions, including sepsis, renal failure, acidosis, acute neurological disease, and persistent tachyarrhythmia.POCT-GLUCOSE [id number] 12:04:00 Test Item Value Reference Range Comments POC-GLUCOSE METER (BEAKER) 134 mg/dL 70-110 TESTED AT [address] (test uwyb=9361) [facility] [address] RAD, CHEST, 1 VIEW, NON [id number] 11:06:00Reason for exam:->pulmonary congestionShould this be performed at the bedside?->YesFINAL REPORT RAD, CHEST, 1 VIEW, NON DEPT CLINICAL INDICATION: pulmonary congestion COMPARISON: Radiograph 02/15/2019 TECHNIQUE: AP view of the chest FINDINGS: Right-sided Mediportis unchanged. Persistently low lung volumes. Increased pulmonary vascular congestion. Developing airspace opacity in the right lower lobe may reflect atelectasis or infection/aspiration. No pleural effusion or pneumothorax. Cardiomediastinal silhouette is unchanged. IMPRESSION: Developing right lower lobe opacity may reflect atelectasis or pneumonia/ aspiration. Signed: Nicole Gutierrez VerifiedDate/Time: 02/16/2019 11:06 :29 Reading Location: [facility] Radiology Reading Room POCT-GLUCOSE [id number] 05:58:00 Test Item Value Reference Range Comments POC-GLUCOSE METER (BEAKER) 74 mg/dL 70-110 TESTED AT [facility] [address] [facility] (test weea=0949) [facility] [address] VANCOMYCIN LEVEL, [id number] 04:01:00 Test Item Value Reference Range Comments VANCOMYCIN TROUGH (BEAKER) (test evrh=907) 10.9 ug/mL 10.0-20.0 [id number] 03:57:00 Test Item Value Reference Range Comments PHOSPHORUS (BEAKER) (test bexk=799) 1.9 mg/dL 2.3-4.7 [id number] 03:57:00 Test Item Value Reference Range Comments MAGNESIUM (BEAKER) (test iofh=836) 1.7 mg/dL 1.6-2.6 BASIC METABOLIC [id number] 03:57:00 Test Item Value Reference Range Comments SODIUM (BEAKER) (test 138 meq/L 136-145 bapq=075) POTASSIUM (BEAKER) (test 3.9 meq/L 3.5-5.1 fesn=821) CHLORIDE (BEAKER) (test 108 meq/L 98-107 tzrq=148) CO2 (BEAKER) (test 22 meq/L 22-29 mhel=816) BLOOD UREA NITROGEN 17 mg/dL 7-21 (BEAKER) (test wtal=846) CREATININE (BEAKER) (test 1.06 mg/dL 0.57-1.25 nysj=385) GLUCOSE RANDOM (BEAKER) 93 mg/dL 70-105 (test qedl=123) CALCIUM (BEAKER) (test 8.4 mg/dL 8.4-10.2 lhxw=602) EGFR (BEAKER) (test 73 mL/min/1.73 sq m ESTIMATED GFR IS NOT ddhk=3713) ACCURATE CREATININE CLEARANCE IN PREDICTING GLOMERULAR FILTRATION RATE. ESTIMATED GFR IS NOT APPLICABLE FOR DIALYSIS PATIENTS. CBC W/PLT COUNT & AUTO [id number] 03:56:00 Test Item Value Reference Range Comments WHITE BLOOD CELL COUNT (BEAKER) (test uyqv=110) 6.2 K/ L 3.5-10.5 RED BLOOD CELL COUNT (BEAKER) (test ceuy=439) 3.25 M/ L 4.63-6.08 HEMOGLOBIN (BEAKER) (test ohhf=291) 10.0 GM/DL 13.7-17.5 HEMATOCRIT (BEAKER) (test ayvi=724) 29.7 % 40.1-51.0 MEAN CORPUSCULAR VOLUME (BEAKER) (test bgws=517) 91.4 fL 79.0-92.2 MEAN CORPUSCULAR HEMOGLOBIN (BEAKER) (test 30.8 pg 25.7-32.2 yhyk=053) MEAN CORPUSCULAR HEMOGLOBIN CONC (BEAKER) (test 33.7 GM/DL 32.3-36.5 cnsd=631) RED CELL DISTRIBUTION WIDTH (BEAKER) (test 12.5 % 11.6-14.4 ysfi=645) PLATELET COUNT (BEAKER) (test epgi=224) 58 K/CU MM 150-450 MEAN PLATELET VOLUME (BEAKER) (test wyix=474) 10.4 fL 9.4-12.4 NUCLEATED RED BLOOD CELLS (BEAKER) (test 0 /100 WBC 0-0 fxpy=863) NEUTROPHILS RELATIVE PERCENT (BEAKER) (test 63 % avfo=161) LYMPHOCYTES RELATIVE PERCENT (BEAKER) (test 18 % syvx=745) MONOCYTES RELATIVE PERCENT (BEAKER) (test 17 % xboe=669) EOSINOPHILS RELATIVE PERCENT (BEAKER) (test 2 % xgwn=028) BASOPHILS RELATIVE PERCENT (BEAKER) (test 1 % ywfa=089) NEUTROPHILS ABSOLUTE COUNT (BEAKER) (test 3.88 K/ L 1.78-5.38 dcrl=364) LYMPHOCYTES ABSOLUTE COUNT (BEAKER) (test 1.11 K/ L 1.32-3.57 vztb=786) MONOCYTES ABSOLUTE COUNT (BEAKER) (test uwfb=472) 1.03 K/ L 0.30-0.82 EOSINOPHILS ABSOLUTE COUNT (BEAKER) (test 0.09 K/ L 0.04-0.54 lyyx=745) BASOPHILS ABSOLUTE COUNT (BEAKER) (test ddfl=399) 0.04 K/ L 0.01-0.08 IMMATURE GRANULOCYTES-RELATIVE PERCENT (BEAKER) 0 % 0-1 (test zevx=8744) LACTIC ACID, [id number] 03:26:00 Test Item Value Reference Range Comments LACTATE BLOOD VENOUS (2) (BEAKER) (test 0.7 mmol/L 0.5-2.2 huet=1739) TROPONIN [id number] 01:05:00 Test Item Value Reference Range Comments TROPONIN I (BEAKER) (test qypw=520) 0.14 ng/mL 0.00-0.03 Troponin I (TnI) levels must be interpreted in the context of the presenting symptoms and the clinical findings. Elevated TnI levels indicate myocardial damage, but are not specific for ischemic heart disease. Elevated TnI levels are seen in patients with other cardiac conditions (including myocarditis and congestive heart failure), and slight TnI elevations occur in patients with other conditions, including sepsis, renal failure, acidosis, acute neurological disease, and persistent tachyarrhythmia.Check Serum Potassium level 2 hours after oral potassium replacement completed or 30 min after intravenous potassium replacement.[id number] 01:01:00 Test Item Value Reference Range Comments POTASSIUM (BEAKER) (test biyk=296) 4.0 meq/L 3.5-5.1 Check Serum Potassium level 2 hours after oral potassium replacement completed or 30 min after intravenous potassium replacement.POCT-GLUCOSE [id number] 00:17:00 Test Item Value Reference Range Comments POC-GLUCOSE METER (BEAKER) 105 mg/dL 70-110 TESTED AT [facility] [address] [facility] (test tbzl=9703) [facility] [address] MR, BRAIN, WITHOUT [id number] 19:38:00Reason for exam:-> CEREBROVASCULAR ACCIDENTFINAL REPORT MR, BRAIN, WITHOUT CONTRAST INDICATION: StrokeCEREBROVASCULAR ACCIDENT TECHNIQUE: Multiplanar, multisequence MR imaging of the brain was obtained. COMPARISON: CT angiogram February 14, 2019 FINDINGS: Multiple foci of restricted diffusion with concomitant decreased signal on ADC and FLAIR hyperintensity compatible with acute infarcts throughout the right MCA distribution including the centrum semiovale, posterior frontal, temporal and parietal parenchyma recent postcentral gyrus on the right. Punctate infarcts of the left NUTRITION ASSOCIATE and posterior circulation territory including the left [...] mass effect. Punctate infarcts of the left NUTRITION ASSOCIATE territory including the left occipital lobe and left cerebellar sphere. Signed: Gia Staton MDReport Verified Date/Time: 02/15/2019 19:38: 56 Reading Location: [facility] C013 Neuro Reading Room TROPONIN [id number] 19:30:00 Test Item Value Reference Range Comments TROPONIN I (BEAKER) (test yyec=204) 0.23 ng/mL 0.00-0.03 Troponin I (TnI) levels must be interpreted in the context of the presenting symptoms and the clinical findings. Elevated TnI levels indicate myocardial damage, but are not specific for ischemic heart disease. Elevated TnI levels are seen in patients with other cardiac conditions (including myocarditis and congestive heart failure), and slight TnI elevations occur in patients with other conditions, including sepsis, renal failure, acidosis, acute neurological disease, and persistent tachyarrhythmia.Check Serum Potassium level 2 hours after oral potassium replacement completed or 30 min after intravenous potassium replacement.[id number] 19:11:00 Test Item Value Reference Range Comments POTASSIUM (BEAKER) (test adaa=535) 3.4 meq/L 3.5-5.1 Check Serum Potassium level 2 hours after oral potassium replacement completed or 30 min after intravenous potassium replacement.POCT-GLUCOSE [id number] 18:38:00 Test Item Value Reference Range Comments POC-GLUCOSE METER (BEAKER) 108 mg/dL 70-110 TESTED AT [facility] [address] [facility] (test jnqa=5625) [facility] [address] PERIPHERAL BLOOD SMEAR - PATHOLOGIST [id number] 16:30:00 Test Item Value Reference Range Comments WBC MORPHOLOGY (BEAKER) (test Toxic Granulation csfi=6981) PERIPHERAL SMR REVIEW (BEAKER) Cell counts confirmed. (test dykt=1899) [id number] (BEAKER) Anna Goel M.D. (test aijx=5145) (electronic signature) (MANUAL DIFFERENTIAL)2019-02-15 14:22:00 Test Item Value Reference Range Comments NEUTROPHILS - REL (DIFF) (BEAKER) (test ipuy=5188) 74 % LYMPHOCYTES - REL (DIFF) (BEAKER) (test mazc=3934) 11 % MONOCYTES - REL (DIFF) (BEAKER) (test zxow=3697) 13 % EOSINOPHILS - REL (DIFF) (BEAKER) (test ervl=4293) 2 % NEUTROPHILS - ABS (DIFF) (BEAKER) (test gqfc=4408) 5.03 K/ L 1.80-8.00 LYMPHOCYTES - ABS (DIFF) (BEAKER) (test bclg=7862) 0.75 K/ L 1.48-4.50 MONOCYTES - ABS (DIFF) (BEAKER) (test jodn=8119) 0.88 K/ L 0.00-1.30 EOSINOPHILS - ABS (DIFF) (BEAKER) (test ghfz=5482) 0.14 K/ L 0.00-0.50 TOTAL COUNTED (BEAKER) (test eqtb=0746) 100 WBC MORPHOLOGY (BEAKER) (test avim=834) Normal PLT MORPHOLOGY (BEAKER) (test tkqx=810) Normal RBC MORPHOLOGY (BEAKER) (test uqis=569) Normal POCT-GLUCOSE [id number] 12:36:00 Test Item Value Reference Range Comments POC-GLUCOSE METER (BEAKER) 100 mg/dL 70-110 TESTED AT [facility] [address] [facility] (test ekty=8448) [facility] [address] CBC WITH PLATELET COUNT + MANUAL [id number] 11:17:00 Test Item Value Reference Range Comments WHITE BLOOD CELL COUNT (BEAKER) (test klco=309) 6.8 K/ L 3.5-10.5 RED BLOOD CELL COUNT (BEAKER) (test jrln=365) 3.84 M/ L 4.63-6.08 HEMOGLOBIN (BEAKER) (test dbpz=709) 11.6 GM/DL 13.7-17.5 HEMATOCRIT (BEAKER) (test heta=642) 35.4 % 40.1-51.0 MEAN CORPUSCULAR VOLUME (BEAKER) (test cacr=450) 92.2 fL 79.0-92.2 MEAN CORPUSCULAR HEMOGLOBIN (BEAKER) (test 30.2 pg 25.7-32.2 pdeb=491) MEAN CORPUSCULAR HEMOGLOBIN CONC (BEAKER) (test 32.8 GM/DL 32.3-36.5 lbjs=802) RED CELL DISTRIBUTION WIDTH (BEAKER) (test 12.7 % 11.6-14.4 eewy=872) PLATELET COUNT (BEAKER) (test yyzj=511) 73 K/CU MM 150-450 MEAN PLATELET VOLUME (BEAKER) (test fuuq=072) 10.4 fL 9.4-12.4 NUCLEATED RED BLOOD CELLS (BEAKER) (test 0 /100 WBC 0-0 zyqp=120) [id number] 11:06:00 Test Item Value Reference Range Comments RPR SCREEN (BEAKER) (test bwjh=571) Nonreactive Nonreactive URINALYSIS W/ [id number] 10:20:00 Test Item Value Reference Range Comments COLOR (BEAKER) (test jyky=737) Yellow CLARITY (BEAKER) (test aptz=641) Cloudy SPECIFIC GRAVITY UA (BEAKER) (test czul=055) 1.021 1.001-1.035 PH UA (BEAKER) (test wbpa=956) 5.5 5.0-8.0 PROTEIN UA (BEAKER) (test donk=466) 50 mg/dL Negative GLUCOSE UA (BEAKER) (test xson=589) Negative Negative KETONES UA (BEAKER) (test yugi=445) Negative Negative BILIRUBIN UA (BEAKER) (test kltu=001) Negative Negative BLOOD UA (BEAKER) (test uqcg=268) Moderate Negative NITRITE UA (BEAKER) (test zbtn=955) Positive Negative LEUKOCYTE ESTERASE UA (BEAKER) (test kejz=431) Large Negative UROBILINOGEN UA (BEAKER) (test norj=102) 0.2 mg/dL 0.2-1.0 RBC UA (BEAKER) (test qvoc=226) 877 /HPF WBC UA (BEAKER) (test agam=793) 186 /HPF MUCUS (BEAKER) (test pacw=3929) Rare SQUAMOUS EPITHELIAL (BEAKER) (test yfvg=805) 1 /HPF SOURCE(BEAKER) (test hiax=5663) URINALYSIS W/ REFLEX URINE [id number] 10:19:00 Test Item Value Reference Range Comments COLOR (BEAKER) (test tilh=918) Yellow CLARITY (BEAKER) (test ieyd=951) Cloudy SPECIFIC GRAVITY UA (BEAKER) (test mtoo=556) 1.021 1.001-1.035 PH UA (BEAKER) (test gmua=115) 5.5 5.0-8.0 PROTEIN UA (BEAKER) (test uacu=773) 50 mg/dL Negative GLUCOSE UA (BEAKER) (test fxcs=614) Negative Negative KETONES UA (BEAKER) (test deeq=224) Negative Negative BILIRUBIN UA (BEAKER) (test ewgy=081) Negative Negative BLOOD UA (BEAKER) (test jvjx=223) Moderate Negative NITRITE UA (BEAKER) (test lgtl=969) Positive Negative LEUKOCYTE ESTERASE UA (BEAKER) (test dfay=494) Large Negative UROBILINOGEN UA (BEAKER) (test mgal=307) 0.2 mg/dL 0.2-1.0 RBC UA (BEAKER) (test uice=203) 877 /HPF WBC UA (BEAKER) (test qtkf=303) 186 /HPF MUCUS (BEAKER) (test hjyz=9637) Rare SQUAMOUS EPITHELIAL (BEAKER) (test kcat=234) 1 /HPF SOURCE(BEAKER) (test ihrr=9772) TROPONIN [id number] 09:07:00 Test Item Value Reference Range Comments TROPONIN I (BEAKER) (test xfhj=372) 0.16 ng/mL 0.00-0.03 Troponin I (TnI) levels must be interpreted in the context of the presenting symptoms and the clinical findings. Elevated TnI levels indicate myocardial damage, but are not specific for ischemic heart disease. Elevated TnI levels are seen in patients with other cardiac conditions (including myocarditis and congestive heart failure), and slight TnI elevations occur in patients with other conditions, including sepsis, renal failure, acidosis, acute neurological disease, and persistent tachyarrhythmia.HEMOGLOBIN [id number] 09:01:00 Test Item Value Reference Range Comments HEMOGLOBIN A1C (BEAKER) (test fymh=086) 5.6 % 4.3-6.1 LACTIC ACID, [id number] 08:58:00 Test Item Value Reference Range Comments LACTATE BLOOD VENOUS (2) (BEAKER) (test 1.1 mmol/L 0.5-2.2 zszv=9351) RAD, CHEST, 1 VIEW, NON [id number] 08:35:00Reason for exam:->feverShould this be performed at the bedside?->YesFINAL REPORT RAD , CHEST, 1 VIEW, NON DEPT CLINICAL INDICATION: fever COMPARISON: Radiograph 2018 TECHNIQUE: AP view of the chest FINDINGS: Right-sided Mediport is unchanged. Lung volumes are much lower on the current exam. No new focal consolidation, pleural effusion, or pneumothorax. Cardiomediastinal silhouette, gino, and pulmonary vasculature are unchanged. IMPRESSION:Nosignificant interval change allowing for lower lung volumes. Signed: Nicole Gutierrez Verified Date/Time: 02/15/2019 08:35:46 Reading Location: [facility] Radiology Reading Room POCT-GLUCOSE [id number] 06:48:00 Test Item Value Reference Range Comments POC-GLUCOSE METER (BEAKER) 106 mg/dL 70-110 TESTED AT [facility] [address] [facility] (test uhvo=6905) [facility] [address] VITAMIN B12 AND [id number] 06:29:00 Test Item Value Reference Range Comments VITAMIN B12 (BEAKER) (test ybgs=297) 343 pg/mL 213-816 FOLATE (BEAKER) (test uovn=730) 15.9 ng/mL >=7.0 LACTIC ACID, [id number] 06:28:00 Test Item Value Reference Range Comments LACTATE BLOOD VENOUS (2) (BEAKER) (test 1.5 mmol/L 0.5-2.2 hkan=2879) [id number] 04:00:00 Test Item Value Reference Range Comments PROCALCITONIN (BEAKER) (test xzco=0847) 0.37 ng/mL <0.05 SEPSIS RISK (ng/mL)Low: 0.05-0.50Intermediate: 0.51-2.00High: & gt;=2.01TSH/FREE T4 IF [id number] 03:55:00 Test Item Value Reference Range Comments THYROID STIMULATING HORMONE (BEAKER) (test 0.67 uIU/mL 0.35-4.94 xcqe=268) LACTIC ACID, [id number] 03:26:00 Test Item Value Reference Range Comments LACTATE BLOOD VENOUS (2) 0.8 mmol/L 0.5-2.2 Specimen slightly hemolyzed (BEAKER) (test ofmc=6571) Specimen slightly ictericCBC W/PLT COUNT & AUTO [id number] 01:55 :00 Test Item Value Reference Range Comments WHITE BLOOD CELL COUNT (BEAKER) (test kwsw=863) 12.7 K/ L 3.5-10.5 RED BLOOD CELL COUNT (BEAKER) (test vjbf=280) 3.98 M/ L 4.63-6.08 HEMOGLOBIN (BEAKER) (test nped=244) 12.1 GM/DL 13.7-17.5 HEMATOCRIT (BEAKER) (test pnig=919) 36.7 % 40.1-51.0 MEAN CORPUSCULAR VOLUME (BEAKER) (test mclq=897) 92.2 fL 79.0-92.2 MEAN CORPUSCULAR HEMOGLOBIN (BEAKER) (test 30.4 pg 25.7-32.2 kvin=380) MEAN CORPUSCULAR HEMOGLOBIN CONC (BEAKER) (test 33.0 GM/DL 32.3-36.5 ttsa=771) RED CELL DISTRIBUTION WIDTH (BEAKER) (test 12.7 % 11.6-14.4 jbmc=332) PLATELET COUNT (BEAKER) (test ymho=328) 75 K/CU MM 150-450 MEAN PLATELET VOLUME (BEAKER) (test nbgd=475) 9.9 fL 9.4-12.4 NUCLEATED RED BLOOD CELLS (BEAKER) (test 0 /100 WBC 0-0 xudr=217) (CELLAVISION MANUAL DIFF)2019-02-15 01:55:00 Test Item Value Reference Range Comments NEUTROPHILS - REL (CELLAVISION)(BEAKER) (test 65 % cnbe=2752) LYMPHOCYTES - REL (CELLAVISION)(BEAKER) (test 20 % ezyf=3193) MONOCYTES - REL (CELLAVISION)(BEAKER) (test 10 % hywn=8108) EOSINOPHILS - REL (CELLAVISION)(BEAKER) (test 1 % yvnf=5619) BASOPHILS - REL (CELLAVISION)(BEAKER) (test 1 % aoom=1192) BANDS - REL (CELLAVISION)(BEAKER) (test 3 % 0-10 tbqc=8804) NEUTROPHILS - ABS (CELLAVISION)(BEAKER) (test 8.26 K/ul 1.78-5.38 ewuu=0937) LYMPHOCYTES - ABS (CELLAVISION)(BEAKER) (test 2.54 K/ul 1.32-3.57 noue=3350) MONOCYTES - ABS (CELLAVISION)(BEAKER) (test 1.27 K/uL 0.30-0.82 esmu=0230) EOSINOPHILS - ABS (CELLAVISION)(BEAKER) (test 0.13 K/uL 0.04-0.54 fsco=6003) BASOPHILS - ABS (CELLAVISION)(BEAKER) (test 0.13 K/uL 0.01-0.08 sghw=0446) BANDS - ABS (CELLAVISION)(BEAKER) (test 0.38 K/uL 0.00-0.80 serb=5244) TOTAL COUNTED (BEAKER) (test navj=2934) 100 PLT MORPHOLOGY (BEAKER) (test cqkd=435) Normal SMUDGE CELLS (BEAKER) (test hyve=2261) Present ANISOCYTOSIS (BEAKER) (test utoq=246) 1+ few MICROCYTES (BEAKER) (test jhho=927) 1+ few POIKILOCYTES (BEAKER) (test llwn=879) 2+ moderate SPHEROCYTES (BEAKER) (test bsno=109) 2+ moderate OVALOCYTES (BEAKER) (test oflq=349) 2+ moderate TEAR DROP CELLS (BEAKER) (test yiup=344) 2+ moderate PLATELET CONCENTRATION (CELLAVISION)(BEAKER) Decreased (test hxyl=2920) Received comment: User comments: Slide comments:TROPONIN [id number] 01:42:00 Test Item Value Reference Range Comments TROPONIN I (BEAKER) (test ibbr=813) 0.19 ng/mL 0.00-0.03 Troponin I (TnI) levels must be interpreted in the context of the presenting symptoms and the clinical findings. Elevated TnI levels indicate myocardial damage, but are not specific for ischemic heart disease. Elevated TnI levels are seen in patients with other cardiac conditions (including myocarditis and congestive heart failure), and slight TnI elevations occur in patients with other conditions, including sepsis, renal failure, acidosis, acute neurological disease, and persistent tachyarrhythmia.BASIC METABOLIC [id number] 01:22:00 Test Item Value Reference Range Comments SODIUM (BEAKER) (test 139 meq/L 136-145 byfs=590) POTASSIUM (BEAKER) (test 3.6 meq/L 3.5-5.1 nabl=536) CHLORIDE (BEAKER) (test 104 meq/L 98-107 wyxz=183) CO2 (BEAKER) (test 25 meq/L 22-29 nsil=796) BLOOD UREA NITROGEN 15 mg/dL 7-21 (BEAKER) (test egrt=701) CREATININE (BEAKER) (test 1.16 mg/dL 0.57-1.25 rgqp=178) GLUCOSE RANDOM (BEAKER) 99 mg/dL 70-105 (test bejd=859) CALCIUM (BEAKER) (test 9.1 mg/dL 8.4-10.2 bjvd=327) EGFR (BEAKER) (test 66 mL/min/1.73 sq m ESTIMATED GFR IS NOT dhfs=8569) ACCURATE CREATININE CLEARANCE IN PREDICTING GLOMERULAR FILTRATION RATE. ESTIMATED GFR IS NOT APPLICABLE FOR DIALYSIS PATIENTS. Specimen slightly ictericLIPID [id number] 01:22:00 Test Item Value Reference Range Comments TRIGLYCERIDES (BEAKER) (test hxvp=245) 119 mg/dL CHOLESTEROL (BEAKER) (test choa=140) 115 mg/dL HDL CHOLESTEROL (BEAKER) (test kppj=304) 42 mg/dL LDL CHOLESTEROL CALCULATED (BEAKER) (test 49 mg/dL czvg=023) Triglyceride Reference Range: Low Risk <150 Borderline 150- 199 High Risk 200-499 Very High Risk >=500Cholesterol Reference Range: Low Risk <200 Borderline 200-239 High Risk > 240HDL Cholesterol Reference Range: Low Risk >=60 High Risk <40LDL Cholesterol Reference Range: Optimal <100 Near Optimal 100-129 Borderline 130-159 High 160-189 Very High >=190 Specimen slightly ictericHEPATIC FUNCTION [id number] 01:22: 00 Test Item Value Reference Range Comments TOTAL PROTEIN (BEAKER) (test hnyh=714) 7.2 gm/dL 6.0-8.3 ALBUMIN (BEAKER) (test xcuu=5686) 4.1 g/dL 3.5-5.0 BILIRUBIN TOTAL (BEAKER) (test erom=968) 2.2 mg/dL 0.2-1.2 BILIRUBIN DIRECT (BEAKER) (test kksn=020) 0.8 mg/dL 0.1-0.5 ALKALINE PHOSPHATASE (BEAKER) (test yeua=847) 109 U/L 40-150 AST (SGOT) (BEAKER) (test wyyf=589) 23 U/L 5-34 ALT (SGPT) (BEAKER) (test takc=438) 20 U/L 6-55 Specimen slightly ictericRAD, CHEST, PA OR AP, 1 [id number] 18:34:00Reason for exam:->chest painShould this be performed at the bedside?->YesFINAL REPORT AP view of the chest dated 02/14/2019 CLINICAL INFORMATION: chestpain Comment: Heart is normal in size. Port-A-Cath is present. Pulmonary vasculature is unremarkable. Lungs are clear. No pulmonary infiltrate or pleural effusion is present. Rib fracture is seen in the left fourth and fifth rib laterally. No pneumothorax is present. Impression: Left rib fractures ofundetermined age. Signed: Kiara Katz MDReport Verified Date/ Time: 02/14/2019 18:34:55 Reading Location: [address] Consult Reading Room TROPONIN [id number] 18:31:00 Test Item Value Reference Range Comments TROPONIN I (BEAKER) (test zuez=349) 0.13 ng/mL 0.00-0.03 Troponin I (TnI) levels must be interpreted in the context of the presenting symptoms and the clinical findings. Elevated TnI levels indicate myocardial damage, but are not specific for ischemic heart disease. Elevated TnI levels are seen in patients with other cardiac conditions (including myocarditis and congestive heart failure), and slight TnI elevations occur in patients with other conditions, including sepsis, renal failure, acidosis, acute neurological disease, and persistent tachyarrhythmia.BASIC METABOLIC [id number] 18:23:00 Test Item Value Reference Range Comments SODIUM (BEAKER) (test 134 meq/L 136-145 cpir=058) POTASSIUM (BEAKER) (test 3.2 meq/L 3.5-5.1 kdyu=548) CHLORIDE (BEAKER) (test 103 meq/L 98-107 olhe=634) CO2 (BEAKER) (test 24 meq/L 22-29 qwbw=773) BLOOD UREA NITROGEN 16 mg/dL 7-21 (BEAKER) (test outd=413) CREATININE (BEAKER) (test 1.15 mg/dL 0.57-1.25 moxq=472) GLUCOSE RANDOM (BEAKER) 127 mg/dL 70-105 (test cfbn=040) CALCIUM (BEAKER) (test 8.7 mg/dL 8.4-10.2 jwwl=788) EGFR (BEAKER) (test 67 mL/min/1.73 sq m ESTIMATED GFR IS NOT xafv=4828) ACCURATE CREATININE CLEARANCE IN PREDICTING GLOMERULAR FILTRATION RATE. ESTIMATED GFR IS NOT APPLICABLE FOR DIALYSIS PATIENTS. PT/[id number] 18:15:00 Test Item Value Reference Range Comments PROTIME (BEAKER) (test lore=910) 16.4 seconds 11.9-14.2 INR (BEAKER) (test osyq=644) 1.4 <=5.9 PARTIAL THROMBOPLASTIN TIME (BEAKER) (test 29.6 seconds 22.5-36.0 bqgg=780) Effective 12/06/2018: PT Reference Range ChangeNew: 11.9-14.2 Previous: 11.7- 14.7RECOMMENDED COUMADIN/WARFARIN INR THERAPY RANGESSTANDARD DOSE: 2.0-3.0 Includes: PROPHYLAXIS for venous thrombosis, systemic embolization; TREATMENT for venous thrombosis and/or pulmonary embolus.HIGH RISK: Target INR is2.5-3.5 for patients wiht mechanical heart valves.CT, CTANGIO [id number] 18:14: 00Reason for exam:->l hpFINAL REPORT CT, CTANGIO BRAIN, CT, CAROTID, ANGIOBRAIN CT WITHOUT CONTRAST INDICATION: Strokel hp COMPARISON: CT head of the same date TECHNIQUE:Rapid acquisition spiral imageswere obtained between the aortic arch and the cranial vertex during intravenous contrast infusion toreconstruct axial images and angiographic 3D maximum intensity projections (MIP). 3-D volumetric reformatted images were created at a dedicated workstation. Stenosis evaluation reported in compliance with NASCET criteria. DOSE REDUCTION: Dose modulation, iterative reconstruction , and/or weight-based adjustment of the mA/kV was utilized to reduce the radiation dose to as low as reasonably achievable.FINDINGS: CTA BRAIN:Internal carotid arteries: Petrous, cavernous and supraclinoid portions [...] arteries: Normal contrast opacification of the bilateral NUTRITION ASSOCIATE P1-P2 branches. Venous opacification: Major dural sinuses unremarkable for bolus timing.Additional findings: None. CTA NECK:Common carotid arteries: There is normal contrast opacification of the bilateral common carotid arteries. Cervical internal carotid arteries: Normal contrast opacification of the bilateral cervical internal carotid arteries without significant stenosis by NASCET criteria. Vertebral arteries: Normal contrast opacification of the bilateral cervical vertebral arteries. Arch anatomy: Conventional. Nonvascular findings:No acute findings within the neck soft tissues IMPRESSION : Findings regarding right M1 occlusion relayed to ED staff by Dr. Staton 6: 13 PM Signed: Gia Staton MDReport Verified Date/Time: 02/14/2019 18:14:44 Reading Location: [address] Neuro Reading Room CT, CAROTID, [id number] 18:14:00Reason for exam:->Ischemic Stroke EvaluationFINAL REPORT CT, CTANGIO BRAIN, CT, CAROTID, ANGIOBRAIN CT WITHOUT CONTRAST INDICATION: Strokel hp COMPARISON: CT head of the same date TECHNIQUE:Rapid acquisition spiral imageswere obtained between the aortic arch and the cranial vertex during intravenous contrast infusion toreconstruct axial images and angiographic 3D maximum intensity projections (MIP). 3-D volumetric reformatted images were created at a dedicated workstation. Stenosis evaluation reported in compliance with NASCET criteria. DOSE REDUCTION: Dose modulation, iterative reconstruction, and/or weight-based adjustment of the mA/kV was utilized to reduce the radiation dose to as low as reasonably achievable.FINDINGS: CTA BRAIN :Internal carotid arteries: Petrous, cavernous and supraclinoid portions [...] arteries: Normal contrast opacification of the bilateral NUTRITION ASSOCIATE P1-P2 branches. Venous opacification: Major dural sinuses unremarkable for bolus timing.Additional findings: None. CTA NECK:Common carotid arteries: There is normal contrast opacification of the bilateral common carotid arteries. Cervical internal carotid arteries: Normal contrast opacification of the bilateral cervical internal carotid arteries without significant stenosis by NASCET criteria. Vertebral arteries: Normal contrast opacification of the bilateral cervical vertebral arteries. Arch anatomy: Conventional. Nonvascular findings:No acute findings within the neck soft tissues IMPRESSION : Findings regarding right M1 occlusion relayed to ED staff by Dr. Staton 6: 13 PM Signed: Gia Staton MDReport Verified Date/Time: 02/14/2019 18:14:44 Reading Location: [address] Neuro Reading Room CBC W/PLT COUNT & AUTO [id number] 18:07:00 Test Item Value Reference Range Comments WHITE BLOOD CELL COUNT (BEAKER) (test clny=369) 12.2 K/ L 3.5-10.5 RED BLOOD CELL COUNT (BEAKER) (test yikp=080) 3.71 M/ L 4.63-6.08 HEMOGLOBIN (BEAKER) (test kfvf=075) 11.3 GM/DL 13.7-17.5 HEMATOCRIT (BEAKER) (test luip=394) 33.9 % 40.1-51.0 MEAN CORPUSCULAR VOLUME (BEAKER) (test ihqt=304) 91.4 fL 79.0-92.2 MEAN CORPUSCULAR HEMOGLOBIN (BEAKER) (test 30.5 pg 25.7-32.2 lato=833) MEAN CORPUSCULAR HEMOGLOBIN CONC (BEAKER) (test 33.3 GM/DL 32.3-36.5 hdzm=138) RED CELL DISTRIBUTION WIDTH (BEAKER) (test 12.8 % 11.6-14.4 gegb=097) PLATELET COUNT (BEAKER) (test xkpj=475) 89 K/CU MM 150-450 MEAN PLATELET VOLUME (BEAKER) (test wwkn=728) 9.9 fL 9.4-12.4 NUCLEATED RED BLOOD CELLS (BEAKER) (test 0 /100 WBC 0-0 wbmj=592) NEUTROPHILS RELATIVE PERCENT (BEAKER) (test 81 % zpnv=071) LYMPHOCYTES RELATIVE PERCENT (BEAKER) (test 8 % lkoq=819) MONOCYTES RELATIVE PERCENT (BEAKER) (test 10 % obmi=156) EOSINOPHILS RELATIVE PERCENT (BEAKER) (test 0 % hhax=057) BASOPHILS RELATIVE PERCENT (BEAKER) (test 0 % vook=242) NEUTROPHILS ABSOLUTE COUNT (BEAKER) (test 9.89 K/ L 1.78-5.38 mdfd=826) LYMPHOCYTES ABSOLUTE COUNT (BEAKER) (test 1.02 K/ L 1.32-3.57 fzfz=166) MONOCYTES ABSOLUTE COUNT (BEAKER) (test htxu=130) 1.21 K/ L 0.30-0.82 EOSINOPHILS ABSOLUTE COUNT (BEAKER) (test 0.02 K/ L 0.04-0.54 ydzz=467) BASOPHILS ABSOLUTE COUNT (BEAKER) (test loyu=863) 0.05 K/ L 0.01-0.08 IMMATURE GRANULOCYTES-RELATIVE PERCENT (BEAKER) 0 % 0-1 (test paam=4893) POCT-GLUCOSE [id number] 18:04:00 Test Item Value Reference Range Comments POC-GLUCOSE METER (BEAKER) 133 mg/dL 70-110 TESTED AT [facility] [address] [facility] (test rvxj=0861) [facility] [address] CT, BRAIN/STROKE [id number] 17:41:00Reason for exam:->strokeWhat is the patient's sedation requirement?->No SedationFINAL REPORT CT, BRAIN/STROKE PROTOCOL CLINICAL INDICATION: Strokestroke COMPARISON : None TECHNIQUE: Noncontrast axial CT imaging of the brain and skull. DOSE REDUCTION: Dose modulation, iterative reconstruction, and/or weight-based adjustment of the mA/kV was utilized to reduce the radiation dose to as low as reasonably achievable. FINDINGS:No intracranial hemorrhage, midline shift or mass effect. [...] time of this dictation Signed: Gia Staton MDReport Verified Date/Time: 02/14/2019 17:41:18 Reading Location: [address] Neuro Reading Room Electronically signed by: GIA STATON MD on 05:41 PMCT, CHEST, WITH IV [id number] 09:03:00FINAL REPORT CT CHEST, ABDOMEN, AND PELVIS WITH CONTRAST HISTORY: Malignant neoplasm of urinary bladder, bladder cancer status post NAC and radical cystectomy, RPLND and ZnhukzJ91.9 COMPARISON: CT of the chest, abdomen and pelvis August 14, 2018 and May 16, 2018.TECHNIQUE:CT scan of the chest, abdomen, and pelvis WITH intravenous contrast, using standard protocol.Coronal and sagittal reformats are provided. IV CONTRAST: 100 cc of Isovue-300. RADIATION DOSE: Total DLP: 793.01 mGy*cmDose modulation, iterative reconstruction, and/or weight based adjustment of the mA/ kV was utilized to reduce the radiation dose [...] normal.The heart is normal, trace pericardial fluid. ABDOMEN: [...] / RETROPERITONEUM: No free air or fluid.LYMPH NODES : No pathologically enlarged lymph node. Multiple nonspecific subcentimeter lymph nodes, for example: A stable right common iliac 6 mm node (axial image 93 ) and a 7 mm left common femoral node which is slightly increased in size ( axial image 114).VESSELS: Scattered atherosclerotic vascular calcifications. GI TRACT: No distention or wall thickening identified. The appendix remains normal.BONES: No aggressive osseous lesion or acute fracture. Stable multiple chronic healed left posterior rib fracture deformities.SOFT TISSUES: Relatively stable left paramedian ventral fat-containing abdominal wallhernia (axial image 88). IMPRESSION: 1. Stable appearing post surgical changes, status post radical cystectomy and Bria pouch.2. No specific CT evidence of locally recurrent or metastatic disease.Signed: Jordan Conway MDR[facility] Verified Date/Time : 11/15/2018 09:03:01 Electronically signed by: JORDAN CONWAY on 02/2019 09:03 [facility], [id number] 09:03:00FINAL REPORT CT CHEST, ABDOMEN, AND PELVIS WITH CONTRAST HISTORY: Malignant neoplasm of urinary bladder, bladder cancer status post NAC and radical cystectomy, RPLND and QzmvtlH63.9 COMPARISON: CT of the chest, abdomen and pelvis August 14, 2018 and May 16, 2018.TECHNIQUE:CT scan of the chest, abdomen, and pelvis WITH intravenous contrast, using standard protocol.Coronal and sagittal reformats are provided. IV CONTRAST: 100 cc of Isovue- 300. RADIATION DOSE: Total DLP: 793.01 mGy*cmDose modulation, [...] image 114).VESSELS: Scattered atherosclerotic vascular calcifications. GI TRACT : No distention or wall thickening identified. The appendix remains normal.BONES: No aggressive osseous lesion or acute fracture. Stable multiple chronic healed left posterior rib fracture deformities.SOFT TISSUES: Relatively stable left paramedian ventral fat-containing abdominal wallhernia (axial image 88). IMPRESSION: 1. Stable appearing post surgical changes, status post radical cystectomy and Bria pouch.2. No specific CT evidence of locally recurrent or metastatic disease.Signed: Jordan Conway MDReport Verified Date/Time : 11/15/2018 09:03:01 Electronically signed by: JORDAN CONWAY on 02/2019 09:03 [id number] 16:32:00 Test Item Value Reference Range Comments POC-CREATININE (BEAKER) 1.3 mg/dL 0.6-1.3 TESTED AT [facility] [address] (test malw=0789) [place] [address] [facility] [address] POC-EGFR (BEAKER) (test 58 mL/min/1.73M2 bymb=4704) TISSUE [id number] 16:33:00Surgical Pathology Report Case: [id number] Authorizing Provider: Danny Swanson MD Collected: 01/02/201844 Ordering Location: [facility] PERIOPERATIVE Received: 01/02/2018 0950 SERVICES [...] PATHOLOGIC DIAGNOSIS Signing Pathologist Direct Phone Line: [phone] Preliminary result electronically signed by Abdulaziz Daniels [...] (pT): pT0 Regional Lymph Nodes (pN): pN3 80119, 74831 X 9, 52008 X 4, 00957 X 11Bladder cancerA. Pelvic lymph nodes, para- [...] Black-right bladder and prostate, blue-left bladder and prostate.Cutter Out sections are submitted as follows: R1, left ureter resection margin; R2, right ureter resection margin; R3, left ureteral orifice; R4, right ureteral orifice; R5, left ureter sales and marketing representative sections; R6,right ureter sales and marketing representative sections; R7 -R23, left lateral bladder wall scar, end submitted; R24, R25, right lateral wall sales and marketing representative sections; R26, R27, sales and marketing representative sections of posterior wall; R28, R29, sales and marketing representative sections of bladder dome; R30, sales and marketing representative section of trigone; R31, sales and marketing representative section of anterior wall; R32, prostate apex; R33-37, prostate from apex to base; R38, seminal vesicles. DD/ewS. Labeled "small bowel resection" consists of a segment of small bowel measuring 3cm in length x 1.5 cm in diameter. The specimen is grossly unremarkable. Section code: S1, resectionmargin en face; S2, random section of small bowel. CG /plFROZEN SECTION DIAGNOSIS:[id number]: DISTAL PARA-AORTIC LYMPH NODE, EXCISION: - TUMOR PRESENT IN LYMPH NODE - REPORTED BY DR. ARTHUR TO DR. SWANSON AT 10:20 [id number]: LYMPH NODE, PROXIMAL LIMIT OF DISSECTION PARAORTA, EXCISION: - TUMOR PRESENT IN ONE OF TWO LYMPH NODES - REPORTED BY DR. ARTHUR TO DR. SWANSON AT 11:45 AMP1FS: URETER, RIGHT DISTAL, EXCISION OF MARGIN: - NEGATIVE FOR HIGH GRADE DYSPLASIA OR CARCINOMA - REPORTED BY DR. SANDHYA SWANSON AT 11:45 AMQ1FS: URETER, LEFT DISTAL, EXCISION OF MARGIN: - NEGATIVE FOR HIGH GRADE DYSPLASIA OR CARCINOMA - REPORTED BY DR. ARTHUR TO DR. SWANSON AT 11:45 AM Performed.URINE [id number] 12:19:00 Test Item Value Reference Range Comments CULTURE (BEAKER) (test ENTEROCOCCUS SPECIES >100,000 col/mL mlrt=4784) Enterococcus species Ampicillin (test code=26) Linezolid (test code=40) Nitrofurantoin (test code=23) Tetracycline (test code=2) Vancomycin (test code=13) [id number] 08:23:00 Test Item Value Reference Range Comments PHOSPHORUS (BEAKER) (test fxrd=365) 3.0 mg/dL 2.3-4.7 Before arterial line is [id number] 08:23:00 Test Item Value Reference Range Comments MAGNESIUM (BEAKER) (test jgfb=582) 1.6 mg/dL 1.6-2.6 Before arterial line is discontinuedBASIC METABOLIC [id number] 08:23:00 Test Item Value Reference Range Comments SODIUM (BEAKER) (test 139 meq/L 136-145 gyph=183) POTASSIUM (BEAKER) (test 3.5 meq/L 3.5-5.1 tnnr=223) CHLORIDE (BEAKER) (test 106 meq/L 98-107 jeup=611) CO2 (BEAKER) (test 26 meq/L 22-29 sqwa=282) BLOOD UREA NITROGEN 9 mg/dL 7-21 (BEAKER) (test bdvf=377) CREATININE (BEAKER) (test 0.85 mg/dL 0.57-1.25 qyrw=078) GLUCOSE RANDOM (BEAKER) 97 mg/dL 70-105 (test jjub=132) CALCIUM (BEAKER) (test 8.4 mg/dL 8.4-10.2 qoum=103) EGFR (BEAKER) (test 95 mL/min/1.73 sq m ESTIMATED GFR IS NOT lukj=0835) ACCURATE CREATININE CLEARANCE IN PREDICTING GLOMERULAR FILTRATION RATE. ESTIMATED GFR IS NOT APPLICABLE FOR DIALYSIS PATIENTS. Before arterial line is discontinuedHEMOGLOBIN AND [id number] 07:53:00 Test Item Value Reference Range Comments HEMOGLOBIN (BEAKER) (test jvdl=899) 8.3 GM/DL 13.7-17.5 HEMATOCRIT (BEAKER) (test yoke=739) 25.5 % 40.1-51.0 [id number] 07:53:00 Test Item Value Reference Range Comments PHOSPHORUS (BEAKER) (test gwne=850) 3.0 mg/dL 2.3-4.7 Before arterial line is [id number] 07:53:00 Test Item Value Reference Range Comments MAGNESIUM (BEAKER) (test frtx=672) 1.6 mg/dL 1.6-2.6 Before arterial line is discontinuedBASIC METABOLIC [id number] 07:53:00 Test Item Value Reference Range Comments SODIUM (BEAKER) (test 135 meq/L 136-145 gkav=173) POTASSIUM (BEAKER) (test 3.9 meq/L 3.5-5.1 ofyr=829) CHLORIDE (BEAKER) (test 109 meq/L 98-107 lcaw=437) CO2 (BEAKER) (test 20 meq/L 22-29 vqxh=402) BLOOD UREA NITROGEN 12 mg/dL 7-21 (BEAKER) (test mege=029) CREATININE (BEAKER) (test 0.88 mg/dL 0.57-1.25 xrhw=995) GLUCOSE RANDOM (BEAKER) 94 mg/dL 70-105 (test skim=183) CALCIUM (BEAKER) (test 8.2 mg/dL 8.4-10.2 jjwy=258) EGFR (BEAKER) (test 91 mL/min/1.73 sq m ESTIMATED GFR IS NOT ckiq=3698) ACCURATE CREATININE CLEARANCE IN PREDICTING GLOMERULAR FILTRATION RATE. ESTIMATED GFR IS NOT APPLICABLE FOR DIALYSIS PATIENTS. Before arterial line is discontinuedHEMOGLOBIN AND [id number] 06:12:00 Test Item Value Reference Range Comments HEMOGLOBIN (BEAKER) (test fxon=076) 7.6 GM/DL 13.7-17.5 HEMATOCRIT (BEAKER) (test opwk=938) 23.7 % 40.1-51.0 [id number] 05:44:00 Test Item Value Reference Range Comments PHOSPHORUS (BEAKER) (test ufdf=886) 3.0 mg/dL 2.3-4.7 Before arterial line is [id number] 05:44:00 Test Item Value Reference Range Comments MAGNESIUM (BEAKER) (test prox=492) 1.6 mg/dL 1.6-2.6 Before arterial line is discontinuedBASIC METABOLIC [id number] 05:44:00 Test Item Value Reference Range Comments SODIUM (BEAKER) (test 138 meq/L 136-145 xike=565) POTASSIUM (BEAKER) (test 4.1 meq/L 3.5-5.1 clev=850) CHLORIDE (BEAKER) (test 109 meq/L 98-107 vbmo=430) CO2 (BEAKER) (test 21 meq/L 22-29 bxrs=584) BLOOD UREA NITROGEN 19 mg/dL 7-21 (BEAKER) (test qbtc=417) CREATININE (BEAKER) (test 1.12 mg/dL 0.57-1.25 wstp=060) GLUCOSE RANDOM (BEAKER) 107 mg/dL 70-105 (test zhvb=408) CALCIUM (BEAKER) (test 8.3 mg/dL 8.4-10.2 lboc=535) EGFR (BEAKER) (test 69 mL/min/1.73 sq m ESTIMATED GFR IS NOT ylxm=5746) ACCURATE CREATININE CLEARANCE IN PREDICTING GLOMERULAR FILTRATION RATE. ESTIMATED GFR IS NOT APPLICABLE FOR DIALYSIS PATIENTS. Before arterial line is discontinuedHEMOGLOBIN AND [id number] 05:07:00 Test Item Value Reference Range Comments HEMOGLOBIN (BEAKER) (test klec=939) 7.6 GM/DL 13.7-17.5 HEMATOCRIT (BEAKER) (test bdhx=642) 23.4 % 40.1-51.0 [id number] 06:36:00 Test Item Value Reference Range Comments MAGNESIUM (BEAKER) (test gybw=211) 2.1 mg/dL 1.6-2.6 Before arterial line is [facility] MET[facility]OLIC [id number] 06:36:00 Test Item Value Reference Range Comments SODIUM (BEAKER) (test 134 meq/L 136-145 donf=379) POTASSIUM (BEAKER) (test 4.9 meq/L 3.5-5.1 fmyx=214) CHLORIDE (BEAKER) (test 107 meq/L 98-107 xefn=401) CO2 (BEAKER) (test 21 meq/L 22-29 fumv=527) BLOOD UREA NITROGEN 26 mg/dL 7-21 (BEAKER) (test gddn=233) CREATININE (BEAKER) (test 1.36 mg/dL 0.57-1.25 hpto=078) GLUCOSE RANDOM (BEAKER) 113 mg/dL 70-105 (test hbwd=217) CALCIUM (BEAKER) (test 8.2 mg/dL 8.4-10.2 gxrn=283) EGFR (BEAKER) (test 55 mL/min/1.73 sq m ESTIMATED GFR IS NOT pqeu=9853) ACCURATE CREATININE CLEARANCE IN PREDICTING GLOMERULAR FILTRATION RATE. ESTIMATED GFR IS NOT APPLICABLE FOR DIALYSIS PATIENTS. Before arterial line is [id number] 06:36:00 Test Item Value Reference Range Comments PHOSPHORUS (BEAKER) (test vseg=108) 3.3 mg/dL 2.3-4.7 HEMOGLOBIN AND [id number] 06:16:00 Test Item Value Reference Range Comments HEMOGLOBIN (BEAKER) (test odsb=573) 7.9 GM/DL 13.7-17.5 HEMATOCRIT (BEAKER) (test teui=131) 24.4 % 40.1-51.0 [id number] 06:27:00 Test Item Value Reference Range Comments PHOSPHORUS (BEAKER) (test dcew=699) 3.4 mg/dL 2.3-4.7 Before arterial line is [id number] 06:27:00 Test Item Value Reference Range Comments MAGNESIUM (BEAKER) (test lomg=031) 2.3 mg/dL 1.6-2.6 Before arterial line is discontinuedBASIC METABOLIC [id number] 06:27:00 Test Item Value Reference Range Comments SODIUM (BEAKER) (test 134 meq/L 136-145 aost=625) POTASSIUM (BEAKER) (test 5.6 meq/L 3.5-5.1 pzyq=613) CHLORIDE (BEAKER) (test 108 meq/L 98-107 kilh=413) CO2 (BEAKER) (test 19 meq/L 22-29 ntfe=260) BLOOD UREA NITROGEN 27 mg/dL 7-21 (BEAKER) (test ormt=571) CREATININE (BEAKER) (test 1.62 mg/dL 0.57-1.25 ykjf=655) GLUCOSE RANDOM (BEAKER) 155 mg/dL 70-105 (test tpfl=293) CALCIUM (BEAKER) (test 8.6 mg/dL 8.4-10.2 flpy=687) EGFR (BEAKER) (test 45 mL/min/1.73 sq m ESTIMATED GFR IS NOT pqcs=0661) ACCURATE CREATININE CLEARANCE IN PREDICTING GLOMERULAR FILTRATION RATE. ESTIMATED GFR IS NOT APPLICABLE FOR DIALYSIS PATIENTS. Before arterial line is discontinuedHEMOGLOBIN AND [id number] 06:12:00 Test Item Value Reference Range Comments HEMOGLOBIN (BEAKER) (test kpgp=144) 8.7 GM/DL 13.7-17.5 HEMATOCRIT (BEAKER) (test whyr=747) 26.1 % 40.1-51.0 BASIC METABOLIC [id number] 16:59:00 Test Item Value Reference Range Comments SODIUM (BEAKER) (test 137 meq/L 136-145 ynsu=774) POTASSIUM (BEAKER) (test 5.0 meq/L 3.5-5.1 cdrs=512) CHLORIDE (BEAKER) (test 110 meq/L 98-107 atwk=264) CO2 (BEAKER) (test 17 meq/L 22-29 ncym=755) BLOOD UREA NITROGEN 18 mg/dL 7-21 (BEAKER) (test lufg=728) CREATININE (BEAKER) (test 1.22 mg/dL 0.57-1.25 otgr=431) GLUCOSE RANDOM (BEAKER) 156 mg/dL 70-105 (test wddv=386) CALCIUM (BEAKER) (test 8.6 mg/dL 8.4-10.2 lujy=571) EGFR (BEAKER) (test 63 mL/min/1.73 sq m ESTIMATED GFR IS NOT yeui=[id number]) ACCURATE CREATININE CLEARANCE IN PREDICTING GLOMERULAR FILTRATION RATE. ESTIMATED GFR IS NOT APPLICABLE FOR DIALYSIS PATIENTS. [facility] [id number] 16:13:00 Test Item Value Reference Range Comments HEMOGLOBIN (BEAKER) (test nlfq=988) 8.5 GM/DL 13.7-17.5 HEMATOCRIT (BEAKER) (test miwh=801) 25.5 % 40.1-51.0 SODIUM NA-STAT [id number] 13:04:00 Test Item Value Reference Range Comments SODIUM (BEAKER) (test ylix=505) 137 meq/L 135-148 POTASSIUM-STAT [id number] 13:04:00 Test Item Value Reference Range Comments POTASSIUM (BEAKER) (test jlyp=651) 4.1 meq/L 3.6-5.5 CALCIUM, [id number] 13:04:00 Test Item Value Reference Range Comments CALCIUM IONIZED (BEAKER) (test zqdz=602) 1.08 mmol/L 1.12-1.27 PH, BLOOD (BEAKER) (test dpaw=2561) 7.39 BLOOD GAS, [id number] 13:04:00 Test Item Value Reference Range Comments PH ARTERIAL (BEAKER) (test xpbf=234) 7.39 7.35-7.45 PCO2 ARTERIAL (BEAKER) (test slgq=157) 36 mmHg 35-45 PO2 ARTERIAL (BEAKER) (test dqfy=625) 241 mmHg 80-90 O2 SATURATION ARTERIAL (BEAKER) (test ejzo=945) 99.5 % 96.0-97.0 HCO3 ARTERIAL (BEAKER) (test cfzi=683) 21 mmol/L 21-29 BASE EXCESS ARTERIAL (BEAKER) (test djzi=362) -3.2 mmol/L -2.0-3.0 PATIENT TEMPERATURE (BEAKER) (test hbqg=0310) 37.0 C FIO2 (BEAKER) (test remn=4376) 100.0 % GLUCOSE-STAT [id number] 13:04:00 Test Item Value Reference Range Comments GLUCOSE RANDOM (BEAKER) (test xojm=440) 121 mg/dL 70-110 HGB/HCT (H&H) - STAT [id number] 13:04:00 Test Item Value Reference Range Comments HEMOGLOBIN (BEAKER) (test hgnx=368) 7.7 g/dL 13.0-16.8 HEMATOCRIT (BEAKER) (test dhpo=102) 23.0 % 40.0-50.0 BASIC METABOLIC [id number] 08:07:00 Test Item Value Reference Range Comments SODIUM (BEAKER) (test 138 meq/L 136-145 gdml=436) POTASSIUM (BEAKER) (test 3.9 meq/L 3.5-5.1 Specimen slightly vyii=155) hemolyzed CHLORIDE (BEAKER) (test 102 meq/L 98-107 brxe=604) CO2 (BEAKER) (test 26 meq/L 22-29 phzy=214) BLOOD UREA NITROGEN 17 mg/dL 7-21 (BEAKER) (test zqtc=630) CREATININE (BEAKER) (test 1.00 mg/dL 0.57-1.25 Specimen slightly idtc=799) hemolyzed GLUCOSE RANDOM (BEAKER) 100 mg/dL 70-105 (test txbl=189) CALCIUM (BEAKER) (test 9.3 mg/dL 8.4-10.2 vfpt=924) EGFR (BEAKER) (test 79 mL/min/1.73 sq m ESTIMATED GFR IS NOT qtsh=6976) ACCURATE CREATININE CLEARANCE IN PREDICTING GLOMERULAR FILTRATION RATE. ESTIMATED GFR IS NOT APPLICABLE FOR DIALYSIS PATIENTS. [id number] 07:18:00 Test Item Value Reference Range Comments HEMOGLOBIN (BEAKER) (test jype=494) 11.3 GM/DL 13.7-17.5 Check DOSANG, CV ACCESS, [id number] 13:27:00Reason for Exam:->Malgnant neoplasm of urinary bladder, [...] patient's medical record by the nurse. Public Relations Manager: Daniel Ty MD Vessel Liner: None. Approach: Right internal jugular vein Estimated [...] needle into the right atrium. A 4 Malaysian micropuncture sheath was placed. A subcutaneous tunnel and pocket were created in the right anterior chest wall by blunt dissection. The pocket was flushed with antibiotic solution. A 6 Malaysian Bard single lumen power injectable port was [...] MDReport Verified Date/Time: 2017 13:27:04 Reading Location: [place] [address] [facility] Reading Room [id number] 09:22:00 Test Item Value Reference Range Comments PROTIME (BEAKER) (test aqna=686) 14.0 seconds 11.7-14.7 INR (BEAKER) (test eyox=102) 1.1 <=5.9 PARTIAL THROMBOPLASTIN TIME (BEAKER) (test 28.1 seconds 22.5-36.0 cxym=858) RECOMMENDED COUMADIN/WARFARIN INR THERAPY RANGESSTANDARD DOSE: 2.0 - 3.0 Includes: PROPHYLAXIS forvenous thrombosis, systemic embolization; TREATMENT for venous thrombosis and/or pulmonary embolus.HIGH RISK: Target INR is 2.5-3.5 for patients with mechanical heart valves.PLATELET [id number] 09:07:00 Test Item Value Reference Range Comments PLATELET COUNT (BEAKER) (test nfes=825) 283 K/CU MM 150-450 PET/CT, WHOLE BODY [id number] 14:56:00Reason for Exam:->c67.9FINAL REPORT EXAMINATION: FDG-PET/CT, 08/03/2017 [...] feetAdditional imaging: NoneSerum blood glucose: 109CPT Code: 31229 FINDINGS:Head and Neck: Mild bernice activity is [...] Verified Date/Time: 08/03/2017 14:56:22 02 :56 PMPOCT-GLUCOSE [id number] 09:20:00 Test Item Value Reference Range Comments POC-GLUCOSE METER (BEAKER) 109 mg/dL 70-110 TESTED AT [address] (test nwjx=8179) [facility] [address] TISSUE [id number] 14:18:00Surgical Pathology Report Case: [id number] Authorizing Provider: Danny Swanson MD Collected: 07/25/2017 1140 Ordering Location: [facility] Received: 07/25/2017 1251 SERVICES [...] GRANULOMATOUS INFLAMMATION Signing Pathologist Direct Phone Line: [phone] signed by Abdulaziz Daniels MD on 07/26/2017 at 2:18 PMApproximately 20% of the tumor shows some degree of squamous differentiation and 1% shows a micropapillary pattern.46457, 13549Nozmzlg cancerA. Bladder tumor left lateral wall. B. [...] entirely submitted in cassette B1. DB/ewPerformed.URINALYSIS W/ [id number] 09: 23:00 Test Item Value Reference Range Comments COLOR (BEAKER) (test knqr=408) Yellow CLARITY (BEAKER) (test frjm=494) Hazy SPECIFIC GRAVITY UA (BEAKER) (test 1.019 1.001-1.035 hyiy=065) PH UA (BEAKER) (test fece=118) 5.5 5.0-8.0 PROTEIN UA (BEAKER) (test njhk=000) 100 mg/dL Negative GLUCOSE UA (BEAKER) (test jfdd=289) Negative Negative KETONES UA (BEAKER) (test cqrc=447) Negative Negative BILIRUBIN UA (BEAKER) (test ufid=859) Negative Negative BLOOD UA (BEAKER) (test wwej=755) Moderate Negative NITRITE UA (BEAKER) (test mpau=079) Negative Negative LEUKOCYTE ESTERASE UA (BEAKER) (test Large Negative hgbb=224) UROBILINOGEN UA (BEAKER) (test mlgi=905) 2.0 mg/dL 0.2-1.0 RBC UA (BEAKER) (test hwdl=481) 27 /HPF WBC UA (BEAKER) (test vzov=873) 155 /HPF MUCUS (BEAKER) (test tlqi=3396) Rare HYALINE CASTS (BEAKER) (test vrja=291) 1 /LPF SOURCE(BEAKER) (test spjo=0007) Urine, Clean Catch
--- OUTSIDE RECORDS SUMMARY | 2019-03-20 21:22 | XMS REPORT | Summary of Care ---
:1965 Author Organization [facility] [place] [address] Care Team Providers Name Role Phone Jhonny Da Silva Primary Care Provider Reason for Visit Reason Comments Follow Up Bladder Cancer Encounter Details Date Type Department Care Team Description 02/20/2019 Office Visit [facility] Fernandez Myrick MD Follow Up Bladder Medicine Hematology [address] [facility] 7th Floor, [address] [place] [address] 7th Floor, [address] [phone] [place] [address] Allergies No Known Allergiesdocumented as [...] of this encounter Last Filed Vital Signs Not on filedocumented in this encounter Progress Notes Fernandez Myrick MD - 02/20/2019 11:00 AM CDTPlease see other notes from associated date documented in this encounter Plan of Treatment Health Maintenance Due Date Last Done Comments COLON CANCER SCREENING: COLONOSCOPY 1965 TETANUS SHOT (ADULT) 1981 HIV SCREENING 1984 FLU VACCINE > 6 MONTHS 02/08/2019 documented as of this encounter Results Not on filedocumented in this encounter Visit Diagnoses Diagnosis Malignant neoplasm of urinary bladder, unspecified site - Primary documented in this encounter Insurance Payer Benefit Plan / Subscriber ID Effective Dates Phone Address Type Group [employer] [facility] xxxxxxxxxxxx 2018-Present [address] [facility] [id number] documented as of this encounter
[2019-03-20 22:24] LABS: Absolute Lymphocytes (CBC) 1.3 K/uL (0.7-4.9); Hematocrit 33.8 % (39.6-49.0); Lymphocytes % 19.9 % (15.3-44.8); MPV 8.2 fL (7.6-11.3); RBC Red Blood Cell Count 3.72 M/uL (4.33-5.43)
[2019-03-20 22:27] LABS: Protime INR 1.63
[2019-03-20 22:38] LABS: Albumin 3.9 g/dL (3.4-5.0); Bilirubin Direct 0.3 mg/dL (0-0.2); Bilirubin Total 1.1 mg/dL (0.2-1.0); Potassium 3.4 mmol/L (3.5-5.1); Protein, Total 7.4 g/dL (6.4-8.2)
--- NOTE | 2019-03-20 22:51 | ER ---
Nurse's Notes [facility] Name: Diaz Sadler Age: 53 yrs Sex: Male : 1965 Arrival Date: 03/20/2019 Time: 21:20 Bed 14 Private MD: Diagnosis: Transient cerebral ischemic attack, unspecified Presentation: 03/20 21:41 Presenting complaint: family member states: "he lost his vision in the lower part of jd3 his right side.". Transition of care: patient was not received from another setting of care. Onset of symptoms was March 20, 2019. Risk Assessment: Do you want to hurt yourself or someone else? Patient reports no desire to harm self or others. Initial Sepsis Screen: Does the patient meet any 2 criteria? No. Patient's initial sepsis screen is negative. Does the patient have a suspected source of infection? No. Patient's initial sepsis screen is negative. Care prior to arrival: None. 21:41 Method Of Arrival: Wheelchair j 21:41 Acuity: TERESA 2 jd3 22:28 Onset of symptoms was March 20, 2019 at 21:00. rr5 Historical: - Allergies: 21:49 Codeine; itch; jd3 21:49 PENICILLINS; jd3 - Home Meds: 21:49 Eliquis Oral [Active]; Aspirin Oral [Active]; Lipitor Oral [Active]; gabapentin 300 mg jd3 Oral cap 1 cap daily [Active]; levothyroxine oral [Active]; Protonix Oral [Active]; Prozac Oral [Active]; - PMHx: 21:49 Bladder CA; Hypothyroidism; neuropathy; prostate cancer; jd3 21:49 TIA; jd3 - PSHx: 21:49 bladder resection; jd3 - Immunization history:: Adult Immunizations up to date. - Social history:: Smoking status: Patient/guardian denies using tobacco. - Ebola Screening: : Patient negative for fever greater than or equal to 101.5 degrees Fahrenheit, and additional compatible Ebola Virus Disease symptoms. Screenin:00 VAN Screening: Arm Drift: Patient shows no arm weakness. Patient is VAN negative. rr5 22:15 Patient has been NPO before screening. The patient is alert, able to follow commands. rr5 The patient does not exhibit slurred or garbled speech The patient is not exhibiting difficulty speaking. The patient does not exhibit difficulty understanding words. The patient is able to swallow own secretions with no drooling or need for suction. Patient tolerated one teaspoon of water. No drooling, immediate coughing, gurgling, or clearing of the throat was noted. The patient tolerated 90mL of water. No drooling, immediate coughing, gurgling, or clearing of the throat was noted. The patient passed the bedside swallow screening. Oral medications may be given as ordered. Contact Physician for further diet orders. Provider notified of bedside swallow screening results: Angel Garcia BLUEPRINT MACHINE OPERATOR. 22:28 Abuse screen: Denies threats or abuse. Denies injuries from another. Nutritional rr5 screening: No deficits noted. Tuberculosis screening: No symptoms or risk factors identified. Fall Risk Secondary diagnosis (15 points) TIA, IV access (20 points). Gait- Total Lord Fall Scale indicates High Risk Score (45 or more points). Fall prevention measures have been instituted. Side Rails Up X 2 Placed Close to Nursing Station Frequent Obs/Assessments Occuring Family Present and informed to notify staff if the need to leave the bedside As available patient and family educated on Fall Prevention Program and Strategies. Assessment: 21:45 General: Appears in no apparent distress. comfortable, Behavior is calm, cooperative, rr5 appropriate for age. 21:45 Pain: Denies pain. Neuro: Level of Consciousness is awake, alert, obeys commands, rr5 Oriented to person, place, time, situation, Appropriate for age Filter Operator are equal bilaterally Moves all extremities. Full function Speech is normal, Facial symmetry appears normal, Pupils are PERRLA. Cardiovascular: Capillary refill < 3 seconds Patient's skin is warm and dry. Respiratory: Airway is patent Respiratory effort is even, unlabored, Respiratory pattern is regular, symmetrical. GI: No signs and/or symptoms were reported involving the gastrointestinal system. : to gravity drainage on condom cathter. EENT: Parent/caregiver reports the patient having loss of vision lower side on his right eye started at 2100 resolved at 2130H.. Derm: Skin is intact, Skin is pink, warm \\T\\ dry. Musculoskeletal: Circulation, motion, and sensation intact. Capillary refill < 3 seconds, Parent/caregiver report the patient having mild weakness at left arm from previous stroke last february 14 2019. 22:50 Reassessment: Patient appears in no apparent distress at this time. Patient and/or rr5 family updated on plan of care and expected duration. Pain level reassessed. Patient is alert, oriented x 3, equal unlabored respirations, skin warm/dry/pink. ED provider advised for admission patient and mechanical engineering officer agreed. 23:30 Reassessment: Patient appears in no apparent distress at this time. Patient and/or rr5 family updated on plan of care and expected duration. Pain level reassessed. Patient is alert, oriented x 3, equal unlabored respirations, skin warm/dry/pink. awaiting for room assignment. 03/21 00:30 Reassessment: Patient appears in no apparent distress at this time. Patient and/or rr5 family updated on plan of care and expected duration. Pain level reassessed. Patient is alert, oriented x 3, equal unlabored respirations, skin warm/dry/pink. transfer to medical surgical floor. vitally stable, no complaints made. Vital Signs: 03/20 21:49 BP 124 / 83; Pulse 58; Resp 18 S; Temp 98.5(O); Pulse Ox 100% on R/A; Weight 79.38 kg jd3 (R); Height 5 ft. 11 in. (180.34 cm) (R); Pain 0/10; 22:31 BP 111 / 73; Pulse 58; Resp 17; Pulse Ox 100% ; rr5 23:44 BP 110 / 73; Pulse 68; Resp 17; Pulse Ox 98% ; rr5 03/21 00:27 BP 117 / 74; Pulse 58; Resp 16; Temp 97.7; Pulse Ox 100% ; rr5 03/20 21:49 Body Mass Index 24.41 (79.38 kg, 180.34 cm) jd3 Visual Acuity: 03/20 22:20 Left Eye Visual acuity 20/30, Pupil size 3 mm, Brisk; Right Eye Visual acuity 20/30, rr5 Pupil size 3 mm, Normal, Brisk; Both Eyes Visual acuity 20/25; Without Lenses; Fausto Coma Score: 21:49 Eye Response: spontaneous(4). Verbal Response: oriented(5). Motor Response: obeys rr5 commands(6). Total: 15. 22:31 Eye Response: spontaneous(4). Verbal Response: oriented(5). Motor Response: obeys rr5 commands(6). Total: 15. 23:44 Eye Response: spontaneous(4). Verbal Response: oriented(5). Motor Response: obeys rr5 commands(6). Total: 15. 03/21 00:27 Eye Response: spontaneous(4). Verbal Response: oriented(5). Motor Response: obeys rr5 commands(6). Total: 15. NIH Stroke Scale Scores: 03/20 21:48 NIHSS Score: 0 pm1 22:40 NIHSS Score: 0 rr5 ED Course: 21:20 Patient arrived in ED. em1 21:23 Angel Garcia, EMELYN is PHCP. pm1 21:23 Chas Edgar MD is Attending Physician. pm1 21:33 Gary Richardson, JESUS is Primary Nurse. rr5 21:43 Triage completed. jd3 21:43 CT completed. Patient tolerated procedure well. Patient moved to CT. Patient moved back nj from CT. 21:50 CT Stroke Brain w/o Contrast In Process Unspecified. EDMS 21:50 Arm band placed on. jd3 21:50 Patient has correct armband on for positive identification. Bed in low position. Call jd3 light in reach. Side rails up X2. Adult w/ patient. 21:56 Stroke CXR 1 View In Process Unspecified. EDMS 22:10 school bus monitor on. Pulse ox on. NIBP on. rr5 22:10 Inserted saline lock: 20 gauge in left antecubital area, using aseptic technique. Blood rr5 collected. 22:10 Accessed port a cath at right chest noted.. rr5 22:49 Aurora Herzog MD is Hospitalizing Provider. pm1 03/21 00:27 No provider procedures requiring assistance completed. Patient admitted, IV remains in rr5 place. intact, No redness/swelling at site. Administered Medications: No medications were administered Point of Care Testing: Blood Glucose: 03/20 22:05 Blood Glucose: 120 mg/dL; rr5 Ranges: Outcome: 22:50 Decision to Hospitalize by Provider. pm1 03/21 00:08 Admitted to Med/surg accompanied by tech, room 224, with chart, Report called to kimberly rr5 Condition: stable Instructed on the need for admit. 00:41 Patient left the ED. rr5 NIH Stroke Scale - NIH Stroke Score Date: 03/20/2019 Time: 21:48 Total Score = 0 1a. Level of Consciousness (LOC) - 0(Alert) 1b. Level of Consciousness (LOC) (Year \\T\\ Age) - 0(Both) 1c. LOC Commands (Open \\T\\ Closes Eyes/Plastic Tile Layer) - 0(Both) 2. Best Gaze (Lateral Gaze Paresis) - 0(Normal) 3. Visual Field Loss - 0(No visual loss) 4. Facial Palsy - 0(Normal) 5a. Left Arm: Motor (10-second hold) - 0(No drift) 5b. Right Arm: Motor (10-second hold) - 0(No drift) 6a. Left Leg: Motor (5-second hold - always test supine) - 0(No drift) 6b. Right Leg: Motor (5-second hold - always test supine) - 0(No drift) 7. Limb Ataxia (finger/nose \\T\\ heel/rodríguez - test with eyes open) - 0(Absent) 8. Sensory Loss (pinprick arms/legs/face) - 0(Normal) 9. Best Language: Aphasia (description/naming/reading) - 0(No aphasia) 10. Dysarthria (speech clarity - read or repeat words) - 0(Normal) 11. Extinction and Inattention (visual/tactile/auditory/spatial/personal) - 0(No abnormality) Initials: pm1 NIH Stroke Scale - NIH Stroke Score Date: 03/20/2019 Time: 22:40 Total Score = 0 1a. Level of Consciousness (LOC) - 0(Alert) 1b. Level of Consciousness (LOC) (Year \\T\\ Age) - 0(Both) 1c. LOC Commands (Open \\T\\ Closes Eyes/Plastic Tile Layer) - 0(Both) 2. Best Gaze (Lateral Gaze Paresis) - 0(Normal) 3. Visual Field Loss - 0(No visual loss) 4. Facial Palsy - 0(Normal) 5a. Left Arm: Motor (10-second hold) - 0(No drift) 5b. Right Arm: Motor (10-second hold) - 0(No drift) 6a. Left Leg: Motor (5-second hold - always test supine) - 0(No drift) 6b. Right Leg: Motor (5-second hold - always test supine) - 0(No drift) 7. Limb Ataxia (finger/nose \\T\\ heel/rodríguez - test with eyes open) - 0(Absent) 8. Sensory Loss (pinprick arms/legs/face) - 0(Normal) 9. Best Language: Aphasia (description/naming/reading) - 0(No aphasia) 10. Dysarthria (speech clarity - read or repeat words) - 0(Normal) 11. Extinction and Inattention (visual/tactile/auditory/spatial/personal) - 0(No abnormality) Initials: rr5 Signatures: Dispatcher [employer] Abhinav Abreu em1 Angel Garcia NP BLUEPRINT MACHINE OPERATOR pm1 Ezra Jones Jonathon RN RN jd3 Gary Richardson RN RN rr5
--- NOTE | 2019-03-20 22:52 | EDPHYS ---
Physician Documentation [facility] Name: Diaz Sadler Age: 53 yrs Sex: Male : 1965 Arrival Date: 03/20/2019 Time: 21:20 Bed 14 Private MD: ED Physician Chas Edgar HPI: 03/20 21:42 This 53 yrs old Male presents to ER via Unassigned with complaints of Right pm1 eye blurry vision. 21:42 The patient is experiencing blurred vision, to the right eye, caused by similar to pm1 prior TIA symptoms. Onset: The symptoms/episode began/occurred at 21:00. Duration: the symptoms are continuous. Aggravated by nothing. Alleviated by nothing. Associated signs and symptoms: Pertinent negatives: None. Patient does not utilize any form of vision correction. Severity of symptoms: in the emergency department the symptoms have resolved just prior to evaluation, Pain is currently a 0 / 10. The patient has experienced a previous episode, approximately 2 months ago. The patient has not recently seen a physician, has an appointment scheduled, PCP, Dr Arias on Tuesday. Patient presenting today with blurred right eye vision onset at 2100 that has resolved on arrival to the ER. Patient concerned because he had a similar episode in January and then 3 weeks later he had a stroke resulting in left sided weakness. Historical: - Allergies: 21:49 Codeine; itch; jd3 21:49 PENICILLINS; jd3 - Home Meds: 21:49 Eliquis Oral [Active]; Aspirin Oral [Active]; Lipitor Oral [Active]; gabapentin 300 mg jd3 Oral cap 1 cap daily [Active]; levothyroxine oral [Active]; Protonix Oral [Active]; Prozac Oral [Active]; - PMHx: 21:49 Bladder CA; Hypothyroidism; neuropathy; prostate cancer; jd3 21:49 TIA; jd3 - PSHx: 21:49 bladder resection; jd3 - Immunization history:: Adult Immunizations up to date. - Social history:: Smoking status: Patient/guardian denies using tobacco. - Ebola Screening: : Patient negative for fever greater than or equal to 101.5 degrees Fahrenheit, and additional compatible Ebola Virus Disease symptoms. ROS: 21:48 Constitutional: Negative for fever, chills, and weight loss. pm1 21:48 ENT: Negative for injury, pain, and discharge, Neck: Negative for injury, pain, and swelling, Cardiovascular: Negative for chest pain, palpitations, and edema, Respiratory: Negative for shortness of breath, cough, wheezing, and pleuritic chest pain, Abdomen/GI: Negative for abdominal pain, nausea, vomiting, diarrhea, and constipation, Back: Negative for injury and pain, MS/Extremity: Negative for injury and deformity, Skin: Negative for injury, rash, and discoloration, Neuro: Negative for headache, weakness, numbness, tingling, and seizure. 21:48 Eyes: Positive for blurry vision, of the right eye, Negative for discharge, foreign body sensation, itching, pain, vision loss. 21:48 : Negative for urinary symptoms, patient uses condom catheter since prostate cancer surgery. Exam: 21:48 Constitutional: This is a well developed, well nourished patient who is awake, alert, pm1 and in no acute distress. Head/Face: Normocephalic, atraumatic. Eyes: Pupils equal round and reactive to light, extra-ocular motions intact. Lids and lashes normal. Conjunctiva and sclera are non-icteric and not injected. Cornea within normal limits. Periorbital areas with no swelling, redness, or edema. ENT: Nares patent. No nasal discharge, no septal abnormalities noted. Tympanic membranes are normal and external auditory canals are clear. Oropharynx with no redness, swelling, or masses, exudates, or evidence of obstruction, uvula midline. Mucous membranes moist. Neck: Trachea midline, no thyromegaly or masses palpated, and no cervical lymphadenopathy. Supple, full range of motion without nuchal rigidity, or vertebral point tenderness. No Meningismus. Chest/axilla: Normal chest wall appearance and motion. Nontender with no deformity. No lesions are appreciated. Cardiovascular: Regular rate and rhythm with a normal S1 and S2. No gallops, murmurs, or rubs. Normal PMI, no JVD. No pulse deficits. Respiratory: Lungs have equal breath sounds bilaterally, clear to auscultation and percussion. No rales, rhonchi or wheezes noted. No increased work of breathing, no retractions or nasal flaring. Abdomen/GI: Soft, non-tender, with normal bowel sounds. No distension or tympany. No guarding or rebound. No evidence of tenderness throughout. Back: No spinal tenderness. No costovertebral tenderness. Full range of motion. Skin: Warm, dry with normal turgor. Normal color with no rashes, no lesions, and no evidence of cellulitis. MS/ Extremity: Pulses equal, no cyanosis. Neurovascular intact. Full, normal range of motion. 21:48 Neuro: Orientation: is normal, Mentation: is normal, Cranial nerves: CN II- XII are normal as tested, Cerebellar function: normal finger to nose testing, Motor: moves all fours, strength is 5/5 in the right arm and right leg, strength is 4/5 in the left arm and left leg, Sensation: no obvious gross deficits. Vital Signs: 21:49 BP 124 / 83; Pulse 58; Resp 18 S; Temp 98.5(O); Pulse Ox 100% on R/A; Weight 79.38 kg jd3 (R); Height 5 ft. 11 in. (180.34 cm) (R); Pain 0/10; 22:31 BP 111 / 73; Pulse 58; Resp 17; Pulse Ox 100% ; rr5 23:44 BP 110 / 73; Pulse 68; Resp 17; Pulse Ox 98% ; rr5 03/21 00:27 BP 117 / 74; Pulse 58; Resp 16; Temp 97.7; Pulse Ox 100% ; rr5 03/20 21:49 Body Mass Index 24.41 (79.38 kg, 180.34 cm) jd3 NIH Stroke Scale Scores: 03/20 21:48 NIHSS Score: 0 pm1 22:40 NIHSS Score: 0 rr5 Fausto Coma Score: 21:49 Eye Response: spontaneous(4). Verbal Response: oriented(5). Motor Response: obeys rr5 commands(6). Total: 15. 22:31 Eye Response: spontaneous(4). Verbal Response: oriented(5). Motor Response: obeys rr5 commands(6). Total: 15. 23:44 Eye Response: spontaneous(4). Verbal Response: oriented(5). Motor Response: obeys rr5 commands(6). Total: 15. 03/21 00:27 Eye Response: spontaneous(4). Verbal Response: oriented(5). Motor Response: obeys rr5 commands(6). Total: 15. Visual Acuity: 03/20 22:20 Left Eye Visual acuity 20/30, Pupil size 3 mm, Brisk; Right Eye Visual acuity 20/30, rr5 Pupil size 3 mm, Normal, Brisk; Both Eyes Visual acuity 20/25; Without Lenses; MDM: 21:30 Patient medically screened. pm1 22:49 Data reviewed: vital signs. Data interpreted: Pulse oximetry: on room air is 100 %. pm1 Interpretation: normal. Counseling: I had a detailed discussion with the patient and/or guardian regarding: the historical points, exam findings, and any diagnostic results supporting the discharge/admit diagnosis, lab results, radiology results, the need for further work-up and treatment in the hospital. 23:06 Physician consultation: Aurora Herzog MD was called at 23:06, was contacted at 23:06, pm1 regarding admission, patient's condition, and will see patient. 03/20 21:31 Order name: Hepatic Function; Complete Time: 22:48 pm1 03/20 21:31 Order name: Basic Metabolic Panel; Complete Time: 22:48 pm1 03/20 21:31 Order name: CBC with Diff; Complete Time: 22:28 pm1 03/20 21:31 Order name: Protime (+inr); Complete Time: 22:48 pm1 03/20 21:31 Order name: Ptt, Activated; Complete Time: 22:48 pm1 03/20 23:16 Order name: Anti-Thrombin III Activity [facility] 03/20 23:16 Order name: Anti-Thrombin III Activity [facility] 03/20 23:16 Order name: Cardiolipin Antibodies G,M [facility]AL 03/20 23:16 Order name: Cardiolipin Antibodies G,M EDAL 03/20 23:16 Order name: Vitamin B12 Level [facility]AL 03/20 23:16 Order name: Vitamin B12 Level [facility]AL 03/20 23:16 Order name: CBC with Automated Diff [facility]AL 03/20 23:16 Order name: CBC with Automated Diff [facility]AL 03/20 23:16 Order name: Comprehensive Metabolic Panel [facility] 03/20 23:16 Order name: Comprehensive Metabolic Panel [facility] 03/20 23:16 Order name: Factor V Leiden Mutation EDAL 03/20 23:16 Order name: Factor V Leiden Mutation [facility] 03/20 23:16 Order name: Folic Acid, (Folate) EDAL 03/20 23:16 Order name: Folic Acid, (Folate) EDMS 03/20 23:16 Order name: Homocysteine EDMS 03/20 23:16 Order name: Homocysteine EDMS 03/20 23:16 Order name: Lipid Profile MS 03/20 23:16 Order name: Lipid Profile EDMS 03/20 23:16 Order name: Magnesium EDMS 03/20 23:16 Order name: Magnesium EDMS 03/20 23:16 Order name: PROTHROMBIN GENE ANALYSIS (F2) MS 03/20 21:31 Order name: CT Stroke Brain w/o Contrast 03/20 21:31 Order name: Stroke CXR 1 View 03/20 21:31 Order name: EKG; Complete Time: 21:32 pm03/20 21:31 Order name: Accucheck; Complete Time: 22:38 pm03/20 21:31 Order name: Cardiac monitoring; Complete Time: 22:38 pm03/20 21:31 Order name: EKG - Nurse/Tech; Complete Time: 22:38 pm03/20 21:31 Order name: IV Saline Lock; Complete Time: 22:38 pm03/20 21:31 Order name: Labs collected and sent; Complete Time: 22:38 pm03/20 21:31 Order name: NPO; Complete Time: 22:38 pm03/20 23:14 Order name: Physical Therapy Consult EDMS 03/20 23:15 Order name: Speech Therapy Consult MS 03/20 23:15 Order name: NPO MS 03/20 23:15 Order name: Echo with Doppler MS 03/20 23:15 Order name: EKG Electrocardiogram MS 03/20 23:16 Order name: PROTHROMBIN GENE ANALYSIS (F2) MS 03/20 23:16 Order name: Phosphorus EDMS 03/20 23:16 Order name: Phosphorus EDMS 03/20 23:16 Order name: Protein C Antigen EDMS 03/20 23:16 Order name: Protein C Antigen EDMS 03/20 23:16 Order name: Protein S (Total EDMS 03/20 23:17 Order name: Protein S (Total EDMS 03/20 23:17 Order name: RPR EDMS 03/20 23:17 Order name: RPR EDMS 03/20 23:17 Order name: T4,Total EDMS 03/20 23:17 Order name: T4,Total [facility] 03/20 23:17 Order name: Thyroid Stimulating Hormone EDAL 03/20 23:17 Order name: Thyroid Stimulating Hormone [facility] 03/20 23:22 Order name: Miscellaneous Test Lab [facility] 03/20 23:25 Order name: Stroke Protocol [facility] 03/20 23:26 Order name: Carotid Artery Bilateral EDAL 03/20 21:31 Order name: O2 Per Protocol; Complete Time: 22:38 pm1 03/20 21:31 Order name: O2 Sat Monitoring; Complete Time: 22:38 pm1 03/20 21:31 Order name: Stroke Swallow Screen; Complete Time: 22:38 pm1 03/20 21:52 Order name: Visual Acuity; Complete Time: 22:38 pm1 Administered Medications: No medications were administered Point of Care Testing: Blood Glucose: 22:05 Blood Glucose: 120 mg/dL; rr5 Ranges: Critical Glucose Levels:Adult <50 mg/dl or >400 mg/dl <40 mg/dl or >180 mg/dl Disposition: 03/21 05:45 Co-signature as Attending Physician, Chas Edgar MD I agree with the assessment and tw4 plan of care. Disposition: 03/20/19 22:50 Hospitalization ordered by Aurora Herzog for Observation. Preliminary diagnosis is Transient cerebral ischemic attack, unspecified. - Bed requested for Telemetry/MedSurg (observation). - Status is Observation. rr5 - Condition is Stable. - Problem is new. - Symptoms are resolved. UTI on Admission? No NIH Stroke Scale - NIH Stroke Score Date: 03/20/2019 Time: 21:48 Total Score = 0 1a. Level of Consciousness (LOC) - 0(Alert) 1b. Level of Consciousness (LOC) (Year \T\ Age) - 0(Both) 1c. LOC Commands (Open \T\ Closes Eyes/Glost Tile Sorter) - 0(Both) 2. Best Gaze (Lateral Gaze Paresis) - 0(Normal) 3. Visual Field Loss - 0(No visual loss) 4. Facial Palsy - 0(Normal) 5a. Left Arm: Motor (10-second hold) - 0(No drift) 5b. Right Arm: Motor (10-second hold) - 0(No drift) 6a. Left Leg: Motor (5-second hold - always test supine) - 0(No drift) 6b. Right Leg: Motor (5-second hold - always test supine) - 0(No drift) 7. Limb Ataxia (finger/nose \T\ heel/rodríguez - test with eyes open) - 0(Absent) 8. Sensory Loss (pinprick arms/legs/face) - 0(Normal) 9. Best Language: Aphasia (description/naming/reading) - 0(No aphasia) 10. Dysarthria (speech clarity - read or repeat words) - 0(Normal) 11. Extinction and Inattention (visual/tactile/auditory/spatial/personal) - 0(No abnormality) Initials: pm1 NIH Stroke Scale - NIH Stroke Score Date: 03/20/2019 Time: 22:40 Total Score = 0 1a. Level of Consciousness (LOC) - 0(Alert) 1b. Level of Consciousness (LOC) (Year \T\ Age) - 0(Both) 1c. LOC Commands (Open \T\ Closes Eyes/Glost Tile Sorter) - 0(Both) 2. Best Gaze (Lateral Gaze Paresis) - 0(Normal) 3. Visual Field Loss - 0(No visual loss) 4. Facial Palsy - 0(Normal) 5a. Left Arm: Motor (10-second hold) - 0(No drift) 5b. Right Arm: Motor (10-second hold) - 0(No drift) 6a. Left Leg: Motor (5-second hold - always test supine) - 0(No drift) 6b. Right Leg: Motor (5-second hold - always test supine) - 0(No drift) 7. Limb Ataxia (finger/nose \T\ heel/rodríguez - test with eyes open) - 0(Absent) 8. Sensory Loss (pinprick arms/legs/face) - 0(Normal) 9. Best Language: Aphasia (description/naming/reading) - 0(No aphasia) 10. Dysarthria (speech clarity - read or repeat words) - 0(Normal) 11. Extinction and Inattention (visual/tactile/auditory/spatial/personal) - 0(No abnormality) Initials: rr5 Signatures: Dispatcher [employer] EDAnn Marie Nassar RN RN cg Angel Garcia, INVESTIGATIVE AGENT INVESTIGATIVE AGENT pm1 Sohail Pruitt RN RN jd3 Wadley, Terrence, MD MD tw4 Richardson, Gary, RN RN rr5 Corrections: (The following items were deleted from the chart) 03/20 23:20 23:16 Vitamin D, 25 ([place]), TOTAL ordered. [facility] EDAL 23:23 23:16 C-ANCA Anti-Proteinase 3 ordered. [facility] :23 23:16 Miscellaneous Test Lab ordered. [facility] EDAL 23:23 23:16 P-ANCA Anti-Myeloperoxidase Ab ordered. [facility] EDAL 23:24 22:50 Hospitalization Ordered by Aurora Herzog MD for Observation. Preliminary cg diagnosis is Transient cerebral ischemic attack, unspecified. Bed requested for Telemetry/MedSurg (observation). Status is Observation. Condition is Stable. Problem is new. Symptoms are resolved. UTI on Admission? No. pm1 23:25 23:17 Stroke Protocol ordered. [facility] EDAL :26 23:17 Carotid Artery Bilateral ordered. [facility] 03/21 00:41 03/20 23:24 03/20/2019 22:50 Hospitalization Ordered by Aurora Herzog MD for rr5 Observation. Preliminary diagnosis is Transient cerebral ischemic attack, unspecified. Bed requested for Telemetry/MedSurg (observation). Status is Observation. Condition is Stable. Problem is new. Symptoms are resolved. UTI on Admission? No. cg
[2019-03-20] MEDS ORDERED: ACETAMINOPHEN 500 MG TAB PO PRN (23:06)
[2019-03-20] MEDS ORDERED: ONDANSETRON 4 MG/2 ML VIAL IV PRN (23:06)
[2019-03-21 00:42] VITALS: BMI 24.9
[2019-03-21] MEDS: NA CHLORIDE 0.9% 1,000 ML IV SCH ×2 (01:18→12:25)
[2019-03-21] MEDS ORDERED: GABAPENTIN 300 MG CAP PO SCH ×2 (02:00→21:00)
[2019-03-21 02:16] VITALS: O2SAT 97
[2019-03-21 06:09] LABS: Absolute Lymphocytes (CBC) 1.7 K/uL (0.7-4.9); Basophils % 1.2 % (0-1.3); Lymphocytes % 32.4 % (15.3-44.8); MPV 8.3 fL (7.6-11.3)
[2019-03-21 06:47] LABS: Albumin 3.2 g/dL (3.4-5.0); Folic Acid, (Folate) 11.8 ng/mL (3.1-17.5); Magnesium 2.1 mg/dL (1.8-2.4); Potassium 3.4 mmol/L (3.5-5.1); Protein, Total 6.3 g/dL (6.4-8.2); T4,Total 7.8 ug/dL (4.5-12.1); Thyroid Stimulating Hormone 3.18 uIU/mL (0.360-3.740)
--- NOTE | 2019-03-21 08:28 | RAD REPORT ---
EXAM DESCRIPTION: Rasheed Single View03/20/2019 9:55 pm CLINICAL HISTORY: Chest pain COMPARISON: January 2019 FINDINGS: The lungs appear clear of acute infiltrate. The heart is normal size. A central venous li ne remains in place IMPRESSION: No acute abnormalities displayed
--- NOTE | 2019-03-21 08:40 | RAD REPORT ---
EXAM DESCRIPTION: USCarotid Artery Bilateral03/21/2019 8:11 am CLINICAL HISTORY: CVA COMPARISON: None FINDINGS: The velocity of the right internal carotid artery equals 77 cm/sec. The right ICA/CCA rati o 1.2 The velocity of the left internal carotid artery equals 86 cm/sec. The left ICA/CCA ratio 1 Minimal plaque is present within the carotid arteries. The vertebral arteries demonstrate antegrade flow IMPRESSION: Minimal plaque within the carotid arteries without evidence of a hemodynamically signifi cant stenosis NASCET criteria used. Mild 0-49% stenosis Moderate 50-69% stenosis Severe 70-99% stenosis
[2019-03-21] MEDS ORDERED: ASPIRIN 81 MG CHEWABLE TABLET PO SCH (09:00)
[2019-03-21] MEDS ORDERED: FOLIC ACID 1 MG TABLET PO SCH (09:00)
[2019-03-21] MEDS ORDERED: APIXABAN 5 MG TABLET PO SCH (09:00)
--- NOTE | 2019-03-21 09:42 | RAD REPORT ---
EXAM DESCRIPTION: MRI - Brain W/Wo Cont - 03/21/2019 9:12 am CLINICAL HISTORY: CVA COMPARISON: March 20, [address] TECHNIQUE: Axial, sagittal, and coronal magnetic images of the brain were obtained. Eighteen cc Mult iHance administered intravenously FINDINGS: A 3 centimeter area of increased signal on T2 weighted sequences is present within the rig ht basal ganglia. Curvilinear increased signal is present within the right claustrum. Diffusion-weigh ely/ADC mapping demonstrates that this has the appearance of subacute infarction. T1 weighted sequenc es demonstrate ill-defined areas of increased signal within this suspicious for blood. A 4 centimeter area of abnormal signal is present within the periventricular white matter, champion rad iata and centrum semiovale of the right parietal lobe. Diffusion-weighted/ADC mapping sequences demon strate that this has the appearance of an acute infarction. An extra-axial fluid collection is not noted. Fluid within the sinuses/mastoids is not seen IMPRESSION: Hemorrhagic subacute infarction right basal ganglia/ right claustrum Acute infarction periventricular white matter, champion radiata and centrum semiovale of the right loretta etal lobe The exam was discussed with Dr. Herzog 9:30 a.m. March 21, 2019
--- NOTE | 2019-03-21 09:50 | P.HP ---
Certification for Inpatient Patient admitted to: Inpatient With expected LOS: >2 Midnights Patient will require the following post-hospital care: None Practitioner: I am a practitioner with admitting privileges, knowledge of patient current condition, hospital course, and medical plan of care. Services: Services provided to patient in accordance with Admission requirements found in Title 42 Section 412.3 of the Code of Federal Regulations Patient History Date of Service: 03/20/19 Reason for admission: TIA versus acute CVA History of Present Illness: Patient is a 53-year-old gentleman who came to the hospital with Blurry vision in the right eye. He has similar symptoms when he had his 1st TIA a month ago. He states the symptoms completely resolved. He was diagnosed with an acute CVA a few weeks ago and was treated at [facility]. Otherwise, he denies any new complaints. His symptoms are pretty much resolved. He has been taking his blood thinners, Eliquis, and his anti- platelet therapy daily. He has not missed his medications and his blood pressure has been stable. In the ER, his symptoms had completely resolved so initially was admitted for observation. CT scan is negative. MRI for the brain is pending as well. Was scheduled to see neurologist, Dr. Segovia, in the morning. Will consult Dr. Segovia to see him in the hospital. Patient will need further workup at this time. He will need inpatient admission pending MRI findings. Allergies Penicillins Allergy (Intermediate, Verified 03/21/19 00:52) Rash hydrocodone Allergy (Verified 03/21/19 00:52) Itching acetaminophen [From Tylenol-Codeine #3] Adverse Reaction (Verified 03/21/19 00: 52) Insomnia codeine [From Tylenol-Codeine #3] Adverse Reaction (Verified 03/21/19 00:52) Insomnia Home Medications: Apixaban [Eliquis] 5 mg PO BID 03/21/19 Aspirin 81 mg PO DAILY 03/21/19 Atorvastatin Calcium [Lipitor] 80 mg PO BEDTIME 03/21/19 Fluoxetine HCl [Prozac] 20 mg PO DAILY 03/21/19 Gabapentin 300 mg PO BEDTIME 03/21/19 Levothyroxine [Synthroid*] 0.1 mg PO DAILY 03/21/19 Pantoprazole Sodium [Protonix] 40 mg PO DAILY 03/21/19 - Past Medical/Surgical History Has patient received pneumonia vaccine in the past: No Diabetic: No -: History of stage IV bladder cancer -: Hypothyroidism -: Neuropathy -: Recent DVT left lower extremity -: Bladder and prostate resection with bladder pouch -: Eligio bladder Psychosocial/ Personal History: Patient is - Family History Father Medical History: Cancer Mother Medical History: Cancer - Social History Smoking Status: Never smoker Place of Residence: Home Review of Systems 10-point ROS is otherwise unremarkable Physical Examination - Vital Signs Temperature: 98.3 F Blood Pressure: 99/56 Pulse: 50 Respirations: 16 Pulse Ox (%): 98 - Physical Exam General: Alert, In no apparent distress, Oriented x3 HEENT: Atraumatic, PERRLA, Mucous membr. moist/pink, EOMI, Sclerae nonicteric Neck: Supple, 2+ carotid pulse no bruit, No LAD, Without JVD or thyroid abnormality Respiratory: Clear to auscultation bilaterally, Normal air movement Cardiovascular: Regular rate/rhythm, Normal S1 S2, No murmurs Gastrointestinal: Normal bowel sounds, Soft and benign, Non-distended, No tenderness Musculoskeletal: No clubbing, No swelling, No tenderness Integumentary: No rashes Neurological: Normal gait, Normal speech, Normal tone, Sensation intact, Cranial nerves 3-12 intact, Normal affect, Abnormal strength ( Mild weakness on the right side greater than the left) Lymphatics: No axilla or inguinal lymphadenopathy - Studies Laboratory Data (last 24 hrs) 03/20/19 22:05: PT 18.9 H, INR 1.63, APTT 28.5 03/20/19 22:05: WBC 6.4, Hgb 11.6 L, Hct 33.8 L, Plt Count 122 L 03/20/19 22:05: Sodium 146 H, Potassium 3.4 L, BUN 19 H, Creatinine 1.40 H, Glucose 105, Total Bilirubin 1.1 H, AST 23, ALT 25, Alkaline Phosphatase 131 H Assessment & Plan - Problems (Diagnosis) (1) Acute CVA (cerebrovascular accident) Current Visit: Yes Status: Acute (2) Vision loss, left eye Current Visit: No Status: Acute (3) TIA (transient ischemic attack) Current Visit: No Status: Suspected - Plan 1. MRI of the brain 2. Echocardiogram and carotid Doppler 3. Anti-platelet therapy and statin therapy 4. Neurology consultation 5. Physical therapy/occupational therapy/speech therapy evaluation 6. Modified barium swallow study 7. DVT prophylaxis Discharge Plan: Home Plan to discharge in: Greater than 2 days - Advance Directives Does patient have a Living Will: No Does patient have a Durable POA for Healthcare: No - Code Status/Comfort Care Code Status Assessed: Yes Code Status: Full Code Critical Care: No Time Spent Managing PTS Care (In Minutes): 45
--- NOTE | 2019-03-21 09:57 | RAD REPORT ---
EXAM DESCRIPTION: CT - Ct Stroke Brain Wo Cont - 03/21/2019 3:09 am ADDENDUM #1 THIS REPORT CONTAINS FINDINGS THAT MAY BE CRITICAL TO PATIENT CARE: The findings were verbally discussed via telephone conference with EMELYN Ortiz by Dr. Kasie Duff on 03/20/2019 1 0:31 PM CDT .The results were acknowledged and understood. Electronically signed by: Zamzam Duff MD 03/20/2019 10:33 PM CDT End of Addendum EXAM DESCRIPTION: CT Head Without Intravenous Contrast CLINICAL HISTORY: The patient is 53 years old and is Male; TIA TECHNIQUE: Axial computed tomography images of the head/brain without intravenous contrast. Sagitt al and coronal reformatted images were created and reviewed. This CT exam was performed using one o r more of the following dose reduction techniques: automated exposure control, adjustment of the mA and/or kV according to patient size, and/or use of iterative reconstruction technique. COMPARISON: CT of the head February 06, 2019. FINDINGS: BRAIN: There is been interval development of low attenuation within the right caudate nu cleus. The finney-white differentiation is otherwise maintained. There is no intracranial hemorrhage, m ass effect, or midline shift. VENTRICLES: Unremarkable. No ventriculomegaly. BONES/JOINTS: No acute fracture. SOFT TISSUES: Unremarkable. SINUSES: Unremarkable as visualized. No acute sinusitis. MASTOID AIR CELLS: Unremarkable as visualized. No mastoid effusion. IMPRESSION: Findings suggest an age-indeterminate infarct involving the right caudate nucleus. Electronically signed by: Zamzam Duff MD 03/20/2019 9:54 PM CDT Due to temporary technical issues with the PACS/Fluency reporting system, reports are being signed by the in house radiologist as a courtesy to ensure prompt reporting. The interpreting radiologist is f ully responsible for the content of the report.
[2019-03-21] MEDS ORDERED: LEVOTHYROXINE SOD 0.1 MG TAB PO SCH (10:00)
[2019-03-21] MEDS ORDERED: NA CHLORIDE 0.9% 1,000 ML IV ONE (10:00)
--- NOTE | 2019-03-21 10:00 | RAD REPORT ---
EXAM DESCRIPTION: MRI - MRA Head Wo Cont - 03/21/2019 9:12 am CLINICAL HISTORY: cva COMPARISON: January 2019 TECHNIQUE: Magnetic resonance angiogram was performed. 3D MIPS reconstruction performed FINDINGS: Focal bulge of the M2 segment of the left middle cerebral artery is unchanged and probably represents the origin of an arterial branch rather than an aneurysm. Peripheral branches of the right middle cerebral artery are mildly diminished in caliber. Remainder of the anterior cerebral, middle cerebral, posterior cerebral, internal carotid and basilar arteries appear unremarkable. IMPRESSION: Mildly diminished caliber of peripheral branches of the right middle cerebral artery
--- NOTE | 2019-03-21 10:03 | RAD REPORT ---
EXAM DESCRIPTION: MRI - MRA Neck W/Wo Cont - 03/21/2019 9:13 am CLINICAL HISTORY: cva COMPARISON: 01/2019 TECHNIQUE: Magnetic resonance angiogram of the neck was performed. 19 cc MultiHance was administered intravenously. 3D MIPS reconstruction performed FINDINGS: The common carotid, internal carotid and external carotid arteries do not demonstrate a si gnificant stenosis. An aneurysm is not seen. The vertebral arteries are codominant without visualization of an abnormality. IMPRESSION: Unremarkable MRA neck NASCET criteria used. Mild 0-49% stenosis Moderate 50-69% stenosis Severe 70-99% stenosis
[2019-03-21] MEDS: KCL 20 MEQ/100 mL IVPB 20 MEQ/100 ML BAG IV SCH ×2 (11:00→11:18)
[2019-03-21 13:55] VITALS: BP 109/68; TEMP 97.2
[2019-03-21] MEDS ORDERED: POTASSIUM CL SA 10 MEQ TAB PO ONE (14:00)
--- NOTE | 2019-03-21 15:57 | EKG ---
Test Date: 2019-03-20 Test Time: 21:50:28 Pres[employer] Lead Teacher: RR MEASUREMENT RESULTS: Intervals: Rate: 56 [place]: 158 QRSD: 116 QT: 434 QTc: 418 [place]: P: 48 [place]: 158 QRS: 66 T: 34 INTERPRETIVE STATEMENTS: Sinus bradycardia Otherwise normal ECG Compared to ECG 02/06/2019 00:12:19 No significant changes Electronically Signed On 03-21-19 15:54:28 CDT by Reji Mcclendon
--- NOTE | 2019-03-21 16:54 | P.DS ---
Admission Date: 03/21/19 Discharge Date: 03/21/19 Disposition: ROUTINE DISCHARGE Discharge Condition: FAIR Reason for Admission: TIA versus acute CVA Consultations: Neurology-Dr. Segovia. Procedures: None. - Problems (1) Acute CVA (cerebrovascular accident) Status: Acute (2) DVT (deep venous thrombosis) Status: Chronic Qualifiers: DVT location: lower extremity Affected thrombotic vein of extremity: unspecified vein of extremity Chronicity: chronic Laterality: unspecified laterality Qualified Code(s): I82.509 - Chronic embolism and thrombosis of unspecified deep veins of unspecified lower extremity (3) Stage IV bladder cancer Status: Chronic Brief History of Present Illness: 53-year-old gentleman presented to the emergency department complaining of transient blurriness of vision. He had similar complaint about a month ago, presented to the ED and subsequently admitted for TIA. Patient got admitted again at [facility], where he was diagnosed with acute CVA and a thrombectomy was performed per daughter. MRI of the brain done in the ED report hemorrhagic subacute infarction right basal ganglia/ right claustrum, acute infarction periventricular white matter, champion radiata and centrum semiovale of the right parietal lobe. Patient was admitted for further management. Hospital Course: Patient admitted to telemetry. He has been on Eliquis for lower extremity DVT. His neurologic symptoms resolved prior to hospitalization and did not experience any further neurologic symptoms. He was evaluated by neurology- Dr. Segovia recommended to continue both Eliquis and aspirin due to the fact that patient has high risk for clotting and he is considered high risk for further stroke events if anticoagulation is discontinued. Dr. Segovia recommended repeat CT head within 24-48 hrs while patient is on anticoagulation to follow the the cerebral petechial hemorrhage and another repeat CT head within 2 weeks. He recommended followup with him with the repeat CT head with him within 2 weeks. Patient declined to stay for another night in order to get the repeat CT head done tomorrow morning. He is given a script to have the CT head done as an outpatient tomorrow. Risk of intracerebral bleed was discussed with him. He voiced understanding and preferred to have the immediate CT head done as an outpatient and declined to stay for another night. Patient is discharged per his request to follow with Dr. Segovia as outpatient. Vital Signs/Physical Exam: Temp Pulse Resp BP Pulse Ox 97.2 F 49 L 18 109/68 99 03/21/19 12:00 03/21/19 12:00 03/21/19 12:00 03/21/19 12:00 03/21/19 12:00 General: Alert, In no apparent distress, Oriented x3 HEENT: Atraumatic, Normocephalic, PERRLA, Mucous membr. moist/pink Neck: Supple Respiratory: Clear to auscultation bilaterally, Normal air movement Cardiovascular: No edema, Normal pulses, Regular rate/rhythm Gastrointestinal: Normal bowel sounds, Soft and benign Musculoskeletal: No swelling Neurological: Normal speech, Normal strength at 5/5 x4 extr, Normal reflexes 2+ Laboratory Data at Discharge: WBC 5.4 K/uL (4.3-10.9) D 03/21/19 05:44 Hgb 10.6 g/dL (13.6-17.9) L 03/21/19 05:44 Hct 31.0 % (39.6-49.0) L 03/21/19 05:44 Plt Count 120 K/uL (152-406) L 03/21/19 05:44 PT 18.9 SECONDS (9.5-12.5) H 03/20/19 22:05 INR 1.63 03/20/19 22:05 APTT 28.5 SECONDS (24.3-36.9) 03/20/19 22:05 Sodium 146 mmol/L (136-145) H 03/21/19 05:44 Potassium 3.4 mmol/L (3.5-5.1) L 03/21/19 05:44 BUN 18 mg/dL (7-18) 03/21/19 05:44 Creatinine 1.19 mg/dL (0.55-1.3) 03/21/19 05:44 Glucose 92 mg/dL (74-106) 03/21/19 05:44 Phosphorus 4.0 mg/dL (2.5-4.9) 03/21/19 05:44 Magnesium 2.1 mg/dL (1.8-2.4) 03/21/19 05:44 Total Bilirubin 1.0 mg/dL (0.2-1.0) 03/21/19 05:44 AST 21 U/L (15-37) 03/21/19 05:44 ALT 20 U/L (12-78) 03/21/19 05:44 Alkaline Phosphatase 107 U/L (45-117) 03/21/19 05:44 Triglycerides 129 mg/dL (<150) 03/21/19 05:44 Cholesterol 117 mg/dL (<200) 03/21/19 05:44 HDL Cholesterol 44 mg/dL (40-60) 03/21/19 05:44 Cholesterol/HDL Ratio 2.66 03/21/19 05:44 Home Medications: Apixaban [Eliquis] 5 mg PO BID 03/21/19 Aspirin 81 mg PO DAILY 03/21/19 Atorvastatin Calcium [Lipitor] 80 mg PO BEDTIME 03/21/19 Fluoxetine HCl [Prozac] 20 mg PO DAILY 03/21/19 Gabapentin 300 mg PO BEDTIME 03/21/19 Levothyroxine [Synthroid*] 0.1 mg PO DAILY 03/21/19 Pantoprazole Sodium [Protonix] 40 mg PO DAILY 03/21/19 Diet: AHA Activity: Ad sumit Followup: Constantine Segovia MD [ASSOCIATE-ACTIVE - CAN ADMIT] - 1 Week ()
[2019-03-21 20:19] LABS: RPR (Rapid Plasma Reagin) NON-REACT (NON-REACT)
[2019-03-21] MEDS ORDERED: ATORVASTATIN 20 MG TAB PO SCH (21:00)
[2019-03-21] MEDS ORDERED: ATORVASTATIN 80 MG TAB PO SCH (21:00)
--- NOTE | 2019-03-21 22:19 | CON ---
Date of Consultation: 03/21/2019 He was admitted on 03/20/[address] Herzog's service. Reason For Consultation: CVA. History Of Present Illness: Mr. Sadler is a 53-year-old white male who came in initially complaining of right eye blurry vision that has resolved already. He has had history of stroke before. He actu ally is on Eliquis, aspirin, Lipitor, gabapentin, levothyroxine, and Protonix as well as Prozac. He also has a history of bladder cancer in the past, hypothyroidism, neuropathy as well as prostate canc er. He is status post bladder resection. In the past, has had a workup including carotid Doppler th at was unremarkable. He has had an echocardiogram in the past that was unremarkable. Today, however , an MRI of the brain showed hemorrhagic subacute infarction in the right basal ganglia and right col ostrum. There was acute infarction in the periventricular white matter, champion radiata, and centrum semiovale of the right parietal lobe. Case was discussed with the patient and with Dr. Segovia and the plan was to transfer him to a tertiary care center. Carotid Doppler that was done today was [facility] unremarkable. His EKG shows sinus bradycardia. Echocardiogram that was done on January 26 was florentino l without any evidence of thrombus or vegetation. Patient denied any cardiac symptoms. Denied any p alpitations. No previous history of atrial fibrillation. He is bradycardic, which is chronic. His laboratory evaluation was positive for mild anemia and an INR of 1.63. His potassium was 3.4. I do not have any further recommendations regarding Mr. Sadler's treatment, except that to agree with aspirin, the Eliquis, the statins and to transfer him to a tertiary care center for closer observati on. It may be worth down the road to place a long-term event monitor on him to make sure he does not have atrial fibrillation. This has not been detected so far. SARA/TI Voice ID: [id number] Report ID: [id number]
--- NOTE | 2019-03-21 22:56 | CON ---
Reason For Consultation: Consultation called because of multiple strokes. History Of Present Illness: Mr. Sadler is a 53-year-old right-handed patient who comes to [facility] after his second stroke-like episode. He was admitted on March 20 for this episode. Gilberto child had sudden onset of blurred vision. He said it was the right eye and could not clearly distinguish if it involved peripheral or central location, that is, whether it was a stroke in the posterior cir culation or an event in his eye. In any event, he said he had blurred vision and not sure if it codey red up with closing either eye. However, symptoms did resolve completely, but he did come in for an evaluation. Just 1 month earlier, he had a stroke that involved his left face, arm, and leg causing more numbness than weakness. His brain imaging did identify on this admission presence of a chronic stroke, which was at 3 cm area in the right basal ganglia, and in addition to this, chronic stroke villarreal d evidence of possible hemorrhagic conversion. The new stroke was at 4 cm area in the periventricula r white matter of the right parietal lobe and that was the acute stroke. After his initial stroke 1 month ago, he developed a deep vein thrombus and was placed on aspirin along with Eliquis 5 mg twice daily for DVT in his lower extremity on the right. It is possible that patient's hemorrhagic convers ion may be related to his strong anticoagulation. In any event, he continues to be at high risk of s troke that is ischemic type despite his anticoagulation. One possible reason is his blood pressure, which has been running low in the 90s/50s. He does admit to drinking a little water and may drink so me sodas. Past Medical History: As indicated in addition to stage IV bladder cancer, hypothyroidism, periphera l neuropathy. Surgical History: Bladder and prostate resections with bladder pouch. Allergies: PENICILLIN, HYDROCODONE/ACETAMINOPHEN, CODEINE. Home Medications: Eliquis 5 mg twice daily, aspirin 81 mg daily, Lipitor 80 mg at bedtime, Prozac 20 mg daily, gabapentin 300 mg at bedtime, Synthroid 0.1 mg daily, Protonix 40 mg daily. Family History: Cancer in mother and father. Social History: Denies alcohol, tobacco, or IV drug use recently. Probably more than 20 years ago, did smoke. Review of Systems: Patient does have a chronic left-sided sensory loss from a recent stroke. Otherwise, denies any mike tional neurological issues. No gastrointestinal, genitourinary, dermatological, or psychiatric issue s. No pulmonary issues. Physical Examination: Vital Signs: Blood pressure 109/68, pulse 49, respiratory rate 16, temperature 98.3, oxygen saturati on 99%. Weight 178 pounds. Height 5 feet 11 inches. General: Mr. Sadler is resting comfortably in bed. He is in no significant distress. He is normoce phalic, atraumatic. His sclerae are anicteric. Oropharynx is moist, pink. Neck: Supple. Chest: Clear. Heart: Regular. Extremities: Show no edema, cyanosis, or clubbing. Neurologic: He is alert and oriented to situation, place, and person. Follows commands appropriatel y. He has no expressive or receptive aphasias. On cranial nerve examination, he has slight decrease to light touch and temperature of the left face compared to the right side, otherwise intact. His c ranial nerve examination, motor examination; his left upper and lower extremity 5-, subtle weakness p roximally and distally compared to the right side that is fully strong at 5/5. Also slight decrease to light touch and temperature on the left arm and leg compared to the right side. Coordination inta ct in upper and lower extremities. Reflexes 1 to 2+ and symmetric in upper and lower extremities. H is gait, mild tendency to drift to the left. Laboratory Studies: White blood cell count 5.4, hemoglobin 10.6, hematocrit 31.0, platelets 120. IN R 1.63. Sodium 146, potassium 3.4, chloride 111, carbon dioxide 27, BUN 18, creatinine 1.19. When gilberto child came into the hospital, his creatinine was elevated to 1.4 consistent with dehydration. He did rec eive IV fluids. Liver function studies showed patient with mildly elevated alkaline phosphatase at 1 31; after hydration, normal at 107. Thyroid function normal. B12 level slightly low at 345. His to korina cholesterol 117, LDL cholesterol 47, HDL cholesterol 44, cholesterol to HDL ratio 2.66. He has _ labs pending. RPR is pending. His carotid artery ultrasound shows no evidence of hemodyna mically significant stenosis. MRA of his head and neck, no significant stenosis. Electrocardiogram shows sinus bradycardia, otherwise normal electrocardiogram. Assessment: Mr. Sadler is a 53-year-old patient with multiple strokes and deep vein thrombus despite being on aspirin along with now Eliquis. He has had episodes of very low blood pressure, which may be a contributing factor. He was dehydrated on admission and that may be also a contributing factor to his repeated strokes. Plan: Patient was instructed to drink over 80 ounces of water daily, to continue aspirin 81 mg and P lavix 75 mg daily. He will have a repeat head CT scan prior to his followup visit in Dr. Segovia's clinic in 2 weeks. 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 NIKOLE/TI Voice ID: [id number] Report ID: [id number]
[2019-03-22] MEDS ORDERED: FLUOXETINE 20 MG CAP PO SCH (09:00)
[2019-03-22] MEDS ORDERED: PANTOPRAZOLE 40MG TABLET PO SCH (09:00)
[2019-03-23 11:00] LABS: Protein C Antigen 95 % (70-140)
[2019-03-25 14:08] LABS: Prothrombin Gene Analysis Test REPORT
== END 2019-03-21 16:12 | disposition home or self-care (01) | DRG 65 ==
LOC: ER 21:16 → INTOOBSV 23:07 → ERHOLD 23:07 → OBSVTOIN 23:07 → 2ND 03-21 00:24 → OBSVTOIN 03-21 09:47
PROVIDERS: ADMIT Hospitalist; ATTEND Hospitalist
DX: I63.9 Cerebral infarction, unspecified (principal); I82.501 Chronic embolism and thrombosis of unspecified deep veins of right lower extremity; Z85.46 Personal history of malignant neoplasm of prostate; Z85.51 Personal history of malignant neoplasm of bladder; Z86.73 Personal history of transient ischemic attack (TIA), and cerebral infarction without residual deficits; Z88.0 Allergy status to penicillin; E03.9 Hypothyroidism, unspecified; Z79.01 Long term (current) use of anticoagulants
CPT/HCPCS: 36415; 70450; 70544; 70549; 70553; 71045; 80048; 80053; 80061; 80076; 81240; 81241; 82607; 82746; 82962; 83090; 83735; 84100; 84436; 84443; 85025; 85300; 85302; 85305; 85306; 85610; 85730; 86147; 86592; 92610; 93005; 93880; 99285; A9577; G0378; J7030

== ENCOUNTER 2019-04-28 14:57 | Emergency (ER) | payer BC ==
[2019-04-28 15:59] LABS: Absolute Lymphocytes (CBC) 1.5 K/uL (0.7-4.9); Basophils % 1.3 % (0-1.3); Hematocrit 38.4 % (39.6-49.0); Lymphocytes % 19.4 % (15.3-44.8); MPV 7.9 fL (7.6-11.3); RBC Red Blood Cell Count 4.31 M/uL (4.33-5.43)
[2019-04-28] MEDS ORDERED: NA CHLORIDE 0.9% 1,000 ML ONE (16:01)
[2019-04-28 16:07] LABS: Urine Blood 1+ (NEG); Urine Glucose NEGATIVE (NEG); Urine Protein 2+ (NEG); Urine Specific Gravity 1.015 (1.005-1.030); Urine pH 8.5 (5.0-7.0)
[2019-04-28 16:17] LABS: Albumin 3.8 g/dL (3.4-5.0); Potassium 3.5 mmol/L (3.5-5.1)
[2019-04-28 16:19] LABS: Urine Bacteria >50 /HPF (NONE SEEN); Urine Culture Reflex Order REFLEXED
--- NOTE | 2019-04-28 16:52 | ER ---
Nurse's Notes [facility] Name: Diaz Sadler Age: 53 yrs Sex: Male : 1965 Arrival Date: 04/28/2019 Time: 14:59 Bed 3 Private MD: Diagnosis: Acute cystitis with hematuria Presentation: 04/28 15:22 Presenting complaint: Patient states: mid back pain and burning with urination that ss began 2 days ago, Brown urine that began today. Patient wears condom catheter for urinary incontinence. Transition of care: patient was not received from another setting of care. Onset of symptoms was April 26, 2019. Risk Assessment: Do you want to hurt yourself or someone else? Patient reports no desire to harm self or others. Initial Sepsis Screen: Does the patient meet any 2 criteria? No. Patient's initial sepsis screen is negative. Does the patient have a suspected source of infection? Yes: Dysuria/Frequency/Urgency/UTI. Care prior to arrival: None. 15:22 Method Of Arrival: Ambulatory ss 15:22 Acuity: TERESA 3 ss Historical: - Allergies: 15:26 Codeine; itch; ss 15:26 PENICILLINS; ss - Home Meds: 15:26 Aspirin Oral [Active]; Eliquis 5 mg oral tab 1 tab 2 times per day [Active]; ss atorvastatin 80 mg Oral tab 1 tab once daily [Active]; Protonix Oral [Active]; levothyroxine oral [Active]; gabapentin 300 mg Oral cap 1 cap daily [Active]; Prozac Oral [Active]; - PMHx: 15:26 Bladder CA; Hypothyroidism; neuropathy; Prostate Cancer; TIA; CVA; DVT- L upper thigh; ss - PSHx: 15:26 Neobladder; ss - Immunization history:: Flu vaccine is not up to date. - Social history:: Smoking status: Patient/guardian denies using tobacco, but has a distant history of tobacco abuse. - Ebola Screening: : Patient denies exposure to infectious person Patient denies travel to an Ebola-affected area in the 21 days before illness onset. Screenin:03 Abuse screen: Denies threats or abuse. Denies injuries from another. Nutritional hb screening: No deficits noted. Tuberculosis screening: No symptoms or risk factors identified. Fall Risk None identified. Assessment: 16:03 General: Appears in no apparent distress. ill, Behavior is calm, cooperative. Pain: hb Pain currently is 5 out of 10 on a pain scale. Neuro: Level of Consciousness is awake, alert, obeys commands, Oriented to person, place, time, situation. Cardiovascular: Capillary refill < 3 seconds Patient's skin is warm and dry. Respiratory: Airway is patent Respiratory effort is even, unlabored, Respiratory pattern is regular, symmetrical. GI: Reports lower abdominal pain. : Reports right flank pain that radiates to lower abdomen, foul smelling dark cloudy urine. EENT: No signs and/or symptoms were reported regarding the EENT system. Derm: Skin is pink, warm \T\ dry. Musculoskeletal: No signs and/or symptoms reported regarding the musculoskeletal system. 17:00 Reassessment: Patient appears in no apparent distress at this time. Patient and/or hb family updated on plan of care and expected duration. Pain level reassessed. Patient is alert, oriented x 3, equal unlabored respirations, skin warm/dry/pink. Vital Signs: 15:26 BP 111 / 76; Pulse 68; Resp 16; Temp 97.5(TE); Pulse Ox 100% on R/A; Weight 83.91 kg; ss Height 5 ft. 11 in. (180.34 cm); Pain 5/10; 17:00 BP 126 / 76; Pulse 66; Resp 15; Pulse Ox 100% on R/A; Pain 8/10; hb 15:26 Body Mass Index 25.80 (83.91 kg, 180.34 cm) ED Course: 14:59 Patient arrived in ED. as 15:06 Ky Guevara PA is PHCP. jr8 15:06 Hola Godfery MD is Attending Physician. jr8 15:23 Triage completed. ss 15:26 Arm band placed on left wrist. ss 15:42 Yohana Fischer, JESUS is Primary Nurse. hb 15:54 Inserted saline lock: 22 gauge in left antecubital area, using aseptic technique. Blood hb collected. 16:03 Patient has correct armband on for positive identification. Bed in low position. Call hb light in reach. Side rails up X 1. 17:11 No provider procedures requiring assistance completed. IV discontinued, intact, hb bleeding controlled, No redness/swelling at site. Pressure dressing applied. Administered Medications: 16:05 Drug: NS 0.9% 1000 ml Route: IV; Rate: 1000 ml; Site: left antecubital; hb 17:10 Follow up: Response: No adverse reaction; IV Status: Completed infusion; IV Intake: hb 1000ml 16:59 Drug: Rocephin 1 grams Route: IV; Rate: calculated rate; Site: left antecubital; hb 17:00 Follow up: IV Status: Completed infusion; IV Intake: 10ml hb 17:10 Follow up: Response: Medication administered at discharge. hb 16:59 Drug: fentaNYL (PF) 50 mcg Route: IVP; Site: left antecubital; hb 17:10 Follow up: Response: Medication administered at discharge. hb Intake: 17:00 IV: 10ml; Total: 10ml. hb 17:10 IV: 1000ml; Total: 1010ml. hb Outcome: 16:51 Discharge ordered by MD. triplett 17:11 Discharged to home ambulatory, with significant other. hb 17:11 Condition: stable 17:11 Discharge instructions given to patient, family, Instructed on discharge instructions, follow up and referral plans. medication usage, Demonstrated understanding of instructions, follow-up care, medications, Prescriptions given X 2. 17:12 Patient left the ED. hb Signatures: Laurie Fry Shelby, RN RN Ky Guevara PA PA jr8 Baxter, Heather, RN RN hb Corrections: (The following items were deleted from the chart) 17:09 16:00 fentaNYL (PF) 50 mcg IVP in left antecubital hb hb
--- NOTE | 2019-04-28 16:53 | EDPHYS ---
Physician Documentation [facility] Name: Diaz Sadler Age: 53 yrs Sex: Male : 1965 Arrival Date: 04/28/2019 Time: 14:59 Bed 3 Private MD: ED Physician Hola Godfrey HPI: 04/28 15:25 This 53 yrs old Male presents to ER via Ambulatory with complaints of Urinary jr8 Problem, Back Pain, Abdominal Pain. 15:25 The patient presents with urinary symptoms, dysuria. Onset: The symptoms/episode jr8 began/occurred 3 day(s) ago. Modifying factors: The symptoms are alleviated by nothing, the symptoms are aggravated by nothing. Associated signs and symptoms: Pertinent negatives: abdominal pain, constipation, fever. Severity of symptoms: At their worst the symptoms were mild. Pt with hx of stage four bladder cancer and neobladder reports three days of dysuria and one day of dark/brown urine. Reports about a week ago one day of fever. Also C/O lower back pain today, denies fever, chills or N/V/D. Historical: - Allergies: 15:26 Codeine; itch; ss 15:26 PENICILLINS; ss - Home Meds: 15:26 Aspirin Oral [Active]; Eliquis 5 mg oral tab 1 tab 2 times per day [Active]; ss atorvastatin 80 mg Oral tab 1 tab once daily [Active]; Protonix Oral [Active]; levothyroxine oral [Active]; gabapentin 300 mg Oral cap 1 cap daily [Active]; Prozac Oral [Active]; - PMHx: 15:26 Bladder CA; Hypothyroidism; neuropathy; Prostate Cancer; TIA; CVA; DVT- L upper thigh; ss - PSHx: 15:26 Neobladder; ss - Immunization history:: Flu vaccine is not up to date. - Social history:: Smoking status: Patient/guardian denies using tobacco, but has a distant history of tobacco abuse. - Ebola Screening: : Patient denies exposure to infectious person Patient denies travel to an Ebola-affected area in the 21 days before illness onset. ROS: 15:26 Constitutional: Negative for fever, chills, and weight loss, Eyes: Negative for injury, jr8 pain, redness, and discharge, Cardiovascular: Negative for chest pain, palpitations, and edema, Respiratory: Negative for shortness of breath, cough, wheezing, and pleuritic chest pain, Abdomen/GI: Negative for abdominal pain, nausea, vomiting, diarrhea, and constipation, MS/Extremity: Negative for injury and deformity, Neuro: Negative for headache, weakness, numbness, tingling, and seizure. 15:26 Back: Positive for pain at rest, of the left low back and right low back. 15:26 : Positive for burning with urination. Exam: 15:27 Constitutional: This is a well developed, well nourished patient who is awake, alert, jr8 and in no acute distress. Head/Face: Normocephalic, atraumatic. Eyes: Pupils equal round and reactive to light, extra-ocular motions intact. Lids and lashes normal. Conjunctiva and sclera are non-icteric and not injected. Cornea within normal limits. Periorbital areas with no swelling, redness, or edema. Neck: Trachea midline, no thyromegaly or masses palpated, and no cervical lymphadenopathy. Supple, full range of motion without nuchal rigidity, or vertebral point tenderness. No Meningismus. Chest/axilla: Normal chest wall appearance and motion. Nontender with no deformity. No lesions are appreciated. Cardiovascular: Regular rate and rhythm with a normal S1 and S2. No gallops, murmurs, or rubs. Normal PMI, no JVD. No pulse deficits. Respiratory: Lungs have equal breath sounds bilaterally, clear to auscultation and percussion. No rales, rhonchi or wheezes noted. No increased work of breathing, no retractions or nasal flaring. Back: No spinal tenderness. No costovertebral tenderness. Full range of motion. Skin: Warm, dry with normal turgor. Normal color with no rashes, no lesions, and no evidence of cellulitis. MS/ Extremity: Pulses equal, no cyanosis. Neurovascular intact. Full, normal range of motion. Neuro: Awake and alert, GCS 15, oriented to person, place, time, and situation. Cranial nerves II-XII grossly intact. Motor strength 5/5 in all extremities. Sensory grossly intact. Cerebellar exam normal. Normal gait. 15:27 Back: CVA tenderness, is absent, vertebral tenderness, is not appreciated. 15:27 : CVA tenderness, is absent, urine is cloudy, and brown in appearance, condom catheter. Vital Signs: 15:26 BP 111 / 76; Pulse 68; Resp 16; Temp 97.5(TE); Pulse Ox 100% on R/A; Weight 83.91 kg; ss Height 5 ft. 11 in. (180.34 cm); Pain 5/10; 17:00 BP 126 / 76; Pulse 66; Resp 15; Pulse Ox 100% on R/A; Pain 8/10; hb 15:26 Body Mass Index 25.80 (83.91 kg, 180.34 cm) ss MDM: 15:10 Patient medically screened. jr8 16:49 Data reviewed: vital signs, nurses notes, lab test result(s), and as a result, I will jr8 discharge patient. Data interpreted: Pulse oximetry: on room air is 100 %. Interpretation: normal. Counseling: I had a detailed discussion with the patient and/or guardian regarding: the historical points, exam findings, and any diagnostic results supporting the discharge/admit diagnosis, lab results, the need for outpatient follow up. ED course: Pt comfortable in exam room, tolerating PO, afebrile with normal WBC and no CVA tenderness. . 04/28 15:21 Order name: CBC with Diff; Complete Time: 16:08 8 04/28 15:21 Order name: CMP; Complete Time: 16:20 8 04/28 15:21 Order name: CK; Complete Time: 16:20 8 04/28 15:21 Order name: Urine Microscopic Only; Complete Time: 16:20 8 04/28 16:03 Order name: Urine Dipstick--Ancillary (enter results); Complete Time: 16:08 eb 04/28 16:21 Order name: Urine Culture EDCA 04/28 15:21 Order name: Urine Dipstick-Ancillary (obtain specimen); Complete Time: 16:03 8 04/28 15:21 Order name: SL; Complete Time: 16:03 Administered Medications: 16:05 Drug: NS 0.9% 1000 ml Route: IV; Rate: 1000 ml; Site: left antecubital; hb 17:10 Follow up: Response: No adverse reaction; IV Status: Completed infusion; IV Intake: hb 1000ml 16:59 Drug: Rocephin 1 grams Route: IV; Rate: calculated rate; Site: left antecubital; hb 17:00 Follow up: IV Status: Completed infusion; IV Intake: 10ml hb 17:10 Follow up: Response: Medication administered at discharge. hb 16:59 Drug: fentaNYL (PF) 50 mcg Route: IVP; Site: left antecubital; hb 17:10 Follow up: Response: Medication administered at discharge. hb Disposition: 04/28/19 16:51 Discharged to Home. Impression: Acute cystitis with hematuria. - Condition is Stable. - Discharge Instructions: Urinary Tract Infection, Adult, Urinary Tract Infection, Adult, [id number]. - Prescriptions for cefpodoxime 200 mg Oral Tablet - take 1 tablet by ORAL route every 12 hours for 10 days with food; 20 tablet. tramadol 200 mg Oral tablet extended release 24 hr - take 1 tablet by ORAL route once daily; 6 tablet. - Medication Reconciliation Form, Thank You Letter, Antibiotic Education form. - Follow up: Private Physician; When: 2 - 3 days; Reason: Recheck today's complaints, Re-evaluation by your physician. - Problem is new. - Symptoms have improved. Signatures: Dispatcher [employer] EDMS Rose Mary Mathews RN RN Ky Gueavra PA PA jr8 Yohana Fischer RN RN Corrections: (The following items were deleted from the chart) 17:12 16:51 04/28/2019 16:51 Discharged to Home. Impression: Acute cystitis with hematuria. hb Condition is Stable. Forms are Medication Reconciliation Form, Thank You Letter, Antibiotic Education, Prescription Opioid Use. Follow up: Private Physician; When: 2 - 3 days; Reason: Recheck today's complaints, Re-evaluation by your physician. Problem is new. Symptoms have improved. jr8
[2019-04-28] MEDS ORDERED: FENTANYL CITR 100 MCG/2 ML ONE (16:58)
[2019-04-28] MEDS ORDERED: CEFTRIAXONE/SWI 1gm 1 GM/10 ML SYR ONE (16:59)
[2019-04-28 19:07] VITALS: TEMP 97.5; O2SAT 100
[2019-04-28 19:08] VITALS: BP 126/76
== END 2019-04-28 17:12 | disposition home or self-care (01) ==
LOC: ER 14:57
DX: N30.01 Acute cystitis with hematuria (principal); E03.9 Hypothyroidism, unspecified; Z79.01 Long term (current) use of anticoagulants; Z79.82 Long term (current) use of aspirin; Z88.0 Allergy status to penicillin; Z88.5 Allergy status to narcotic agent; Z85.46 Personal history of malignant neoplasm of prostate; Z85.51 Personal history of malignant neoplasm of bladder
CPT/HCPCS: 96361; 87088; 85025; 87086; 36415; 82550; 80053; 96375; 96374; 99284; J3010; J0696; J7030; 81003; 81015; 87077; 87186

== ENCOUNTER 2019-05-19 20:25 | Emergency (ER) | payer BC ==
--- NOTE | 2019-05-19 22:37 | EDPHYS ---
Physician Documentation [facility] Name: Diaz Sadler Age: 53 yrs Sex: Male : 1965 Arrival Date: 05/19/2019 Time: 20:28 Bed 2 Private MD: ED Physician Amrit Urias HPI: 05/19 21:15 This 53 yrs old Male presents to ER via Ambulatory with complaints of kdr Bleeding From IV Cath. 21:15 The patient had a PIC lined placed two days ago for abx and has continued to have kdr bleeding from the site. The patient was seen by Home health and they would not infuse abx since the site was bleeding too much. Onset: The symptoms/episode began/occurred 2 day(s) ago. Severity of symptoms: At their worst the symptoms were mild in the emergency department the symptoms are unchanged. The patient has not experienced similar symptoms in the past. The patient has been recently seen by a physician: For line placement. Historical: - Allergies: 21:07 Codeine; itch; aa1 21:07 PENICILLINS; aa1 21:07 hydrocodone; aa1 - Home Meds: 21:07 aspirin 81 mg oral TbEC 1 tab once daily [Active]; cefepime intravenous 2 gm aa1 intravenous every 12 hours [Active]; vancomycin intravenous 1.25 gm intravenous daily [Active]; gabapentin 300 mg Oral cap 1 cap twice a day [Active]; Eliquis 5 mg Oral tab 1 tab 2 times per day [Active]; atorvastatin 80 mg Oral tab 1 tab once daily [Active]; fluoxetine 20 mg Oral tab 1 tab once daily [Active]; levothyroxine 100 mcg oral tab 1 tab once daily [Active]; Protonix 40 mg oral TbEC 1 tab once daily [Active]; promethazine 12.5 mg Oral tab 1 tab every 6 hours [Active]; - PMHx: 21:07 Bladder CA; CVA; DVT- L upper thigh; Hypothyroidism; neuropathy; Prostate Cancer; TIA; aa1 "heart infection"; - PSHx: 21:07 cystectomy; prostatectomy; aa1 - Immunization history:: Flu vaccine is not up to date. - Social history:: Smoking status: Patient/guardian denies using tobacco. - Ebola Screening: : No symptoms or risks identified at this time. ROS: 21:15 Constitutional: Negative for fever, chills, and weight loss, Eyes: Negative for injury, kdr pain, redness, and discharge. 21:15 Skin: Positive for Bleeding from the insertion site of the pick line - slow. The dressing is moderately soaked.. Exam: 21:15 Constitutional: This is a well developed, well nourished patient who is awake, alert, kdr and in no acute distress. 21:15 Skin: As noted above, there was blood around the insertion site and on the dressing. Vital Signs: 20:51 BP 141 / 79; Pulse 48; Resp 18; Temp 98.0; Pulse Ox 100% on R/A; Weight 81.65 kg (R); aa1 Height 5 ft. 11 in. (180.34 cm); Pain 0/10; 22:00 BP 117 / 78; Pulse 49; Resp 16; Pulse Ox 99% ; Pain 0/10; rr5 22:54 BP 119 / 71; Pulse 50; Resp 16; Temp 97.9; Pulse Ox 99% ; Pain 0/10; rr5 20:51 Body Mass Index 25.10 (81.65 kg, 180.34 cm) aa1 MDM: 21:15 Data reviewed: vital signs, nurses notes. Counseling: I had a detailed discussion with kdr the patient and/or guardian regarding: the historical points, exam findings, and any diagnostic results supporting the discharge/admit diagnosis, the need for outpatient follow up. 22:36 Patient medically screened. kdr 05/19 21:14 Order name: Silvia. Order: Clean and dress (pressure dressing) PIC line site on right kdr arm; Complete Time: 22:24 05/19 21:14 Order name: [facility] [place]. Order: Infuse the patient's abx; Complete Time: 22:24 kdr Administered Medications: No medications were administered Disposition: 05/19/19 22:36 Discharged to Home. Impression: PIC Line insertion site bleeding. - Condition is Stable. - Blank Diagnosis Outline, Medication Reconciliation Form, Thank You Letter form. - Follow up: Private Physician; When: 2 - 3 days; Reason: If symptoms return, Further diagnostic work-up, Recheck today's complaints, Continuance of care, Re-evaluation by your physician. - Problem is new. - Symptoms have improved. Signatures: Mayelin Bustos RN RN aa1 Amrit Urias MD MD kdr Gary Richardson, RN RN rr5 Corrections: (The following items were deleted from the chart) 22:55 22:36 05/19/2019 22:36 Discharged to Home. Impression: PIC Line insertion site rr5 bleeding. Condition is Stable. Forms are Medication Reconciliation Form, Thank You Letter, Antibiotic Education, Prescription Opioid Use. Follow up: Private Physician; When: 2 - 3 days; Reason: If symptoms return, Further diagnostic work-up, Recheck today's complaints, Continuance of care, Re-evaluation by your physician. Problem is new. Symptoms have improved. kdr
--- NOTE | 2019-05-19 22:37 | ER ---
Nurse's Notes [facility] Name: Diaz Sadler Age: 53 yrs Sex: Male : 1965 Arrival Date: 05/19/2019 Time: 20:28 Bed 2 Private MD: Diagnosis: PIC Line insertion site bleeding Presentation: 05/19 20:51 Presenting complaint: Patient states: he was released from [facility] with a PICC line aa1 for IV abx therapy and his HH nurse came today and stated she could not use his PICC line bc it was bleeding too much from the insertion site and he needed to come to the ED to verify placement. Pt denies any other symptoms. Minor bleeding noted underneath dressing. Reports he is currently on ASA and eliquis. States, "I just wanna get this fixed so i can go home and get in a hot bath and go to bed.". Transition of care: patient was not received from another setting of care. Onset of symptoms was May 19, 2019. Risk Assessment: Do you want to hurt yourself or someone else? Patient reports no desire to harm self or others. Initial Sepsis Screen: Does the patient meet any 2 criteria? No. Patient's initial sepsis screen is negative. Does the patient have a suspected source of infection? No. Patient's initial sepsis screen is negative. Care prior to arrival: None. 20:51 Method Of Arrival: Ambulatory aa1 20:51 Acuity: TERESA 4 aa1 Triage Assessment: 20:51 General: Appears in no apparent distress. comfortable, Behavior is calm, cooperative, aa1 appropriate for age. Pain: Denies pain. Historical: - Allergies: 21:07 Codeine; itch; aa1 21:07 PENICILLINS; aa1 21:07 hydrocodone; aa1 - Home Meds: 21:07 aspirin 81 mg oral TbEC 1 tab once daily [Active]; cefepime intravenous 2 gm aa1 intravenous every 12 hours [Active]; vancomycin intravenous 1.25 gm intravenous daily [Active]; gabapentin 300 mg Oral cap 1 cap twice a day [Active]; Eliquis 5 mg Oral tab 1 tab 2 times per day [Active]; atorvastatin 80 mg Oral tab 1 tab once daily [Active]; fluoxetine 20 mg Oral tab 1 tab once daily [Active]; levothyroxine 100 mcg oral tab 1 tab once daily [Active]; Protonix 40 mg oral TbEC 1 tab once daily [Active]; promethazine 12.5 mg Oral tab 1 tab every 6 hours [Active]; - PMHx: 21:07 Bladder CA; CVA; DVT- L upper thigh; Hypothyroidism; neuropathy; Prostate Cancer; TIA; aa1 "heart infection"; - PSHx: 21:07 cystectomy; prostatectomy; aa1 - Immunization history:: Flu vaccine is not up to date. - Social history:: Smoking status: Patient/guardian denies using tobacco. - Ebola Screening: : No symptoms or risks identified at this time. Screenin:00 Abuse screen: Denies threats or abuse. Denies injuries from another. Nutritional rr5 screening: No deficits noted. Tuberculosis screening: No symptoms or risk factors identified. Fall Risk IV access (20 points). Total Lord Fall Scale indicates No Risk (0-24 pts). Assessment: 21:00 General: Appears in no apparent distress. comfortable, Behavior is calm, cooperative, rr5 appropriate for age. 21:00 Pain: Denies pain. Neuro: Level of Consciousness is awake, alert, obeys commands, rr5 Oriented to person, place, time, situation, Appropriate for age. Cardiovascular: Capillary refill < 3 seconds Patient's skin is warm and dry. bleeding on the incision site PICC line at right upper arm. . Respiratory: Airway is patent Respiratory effort is even, unlabored, Respiratory pattern is regular, symmetrical. GI: No signs and/or symptoms were reported involving the gastrointestinal system. : No signs and/or symptoms were reported regarding the genitourinary system. EENT: No signs and/or symptoms were reported regarding the EENT system. Derm: Skin is intact, is healthy with good turgor, Skin temperature is warm. Musculoskeletal: Circulation, motion, and sensation intact. Capillary refill < 3 seconds. 21:20 Reassessment: ED provider ordered to give due antibiotic. rr5 21:30 Reassessment: Patient appears in no apparent distress at this time. Patient is alert, rr5 oriented x 3, equal unlabored respirations, skin warm/dry/pink. changed PICC line dressing aseptically, flushing done NS 20ml each port. flushes well no resistance noted. 21:30 Reassessment: pressure dressing applied to PICC line site. rr5 21:35 Reassessment: Patient appears in no apparent distress at this time. foreign broadcast specialist hooked rr5 and started prescribed antibiotic to the patient by home health connected to PICC line. 22:00 Reassessment: Patient appears in no apparent distress at this time. Patient is alert, rr5 oriented x 3, equal unlabored respirations, skin warm/dry/pink. no complaints made still ongoing antibiotic infusion. 22:32 Reassessment: Patient appears in no apparent distress at this time. Patient and/or rr5 family updated on plan of care and expected duration. Pain level reassessed. Patient is alert, oriented x 3, equal unlabored respirations, skin warm/dry/pink. IV antibiotic infusion consumed and terminated. bleeding form the PICC line site small in amount noted. compression dressing applied. 22:53 Reassessment: Patient appears in no apparent distress at this time. Patient is alert, rr5 oriented x 3, equal unlabored respirations, skin warm/dry/pink. reassess by ED provider for discharge. discharge instruction given and explained without complaints made. verbalized understanding. Vital Signs: 20:51 BP 141 / 79; Pulse 48; Resp 18; Temp 98.0; Pulse Ox 100% on R/A; Weight 81.65 kg (R); aa1 Height 5 ft. 11 in. (180.34 cm); Pain 0/10; 22:00 BP 117 / 78; Pulse 49; Resp 16; Pulse Ox 99% ; Pain 0/10; rr5 22:54 BP 119 / 71; Pulse 50; Resp 16; Temp 97.9; Pulse Ox 99% ; Pain 0/10; rr5 20:51 Body Mass Index 25.10 (81.65 kg, 180.34 cm) aa1 ED Course: 20:28 Patient arrived in ED. cf2 20:43 Gary Richardson, JESUS is Primary Nurse. rr5 20:44 Amrit Urias MD is Attending Physician. kdr 20:51 Arm band placed on right wrist. Patient placed in an exam room, on a stretcher. aa1 20:52 Patient has correct armband on for positive identification. Bed in low position. Call rr5 light in reach. Side rails up X2. Pulse ox on. NIBP on. 20:52 Warm blanket given. rr5 20:55 No provider procedures requiring assistance completed. Accessed PICC line. using rr5 ,sterile technique, per hospital protocol. right upper arm 2 port. bleeding noted on the incision site of the PICC line.. Good blood return. Flushes easily. 20:59 Triage completed. aa1 22:54 intact, bleeding controlled, No redness/swelling at site. Pressure dressing applied, rr5 PICC line in placed. Administered Medications: No medications were administered Outcome: 22:36 Discharge ordered by . kdr 22:55 Discharged to home ambulatory, with family. rr5 22:55 Condition: stable 22:55 Discharge instructions given to patient, family, Instructed on discharge instructions, follow up and referral plans. Demonstrated understanding of instructions, follow-up care. 22:55 Patient left the ED. rr5 Signatures: Mayelin Bustos RN RN aa1 Amrit Urias MD MD kdr Roque, Raymond, RN RN rr5 Awais Olsen 2
[2019-05-19 23:19] VITALS: O2SAT 99
[2019-05-19 23:20] VITALS: BP 119/71; TEMP 97.9
--- OUTSIDE RECORDS SUMMARY | 2019-05-21 06:48 | XMS REPORT ---
:1965 [facility] Address [address] [place] [id number] Care Team Providers Name Role Phone DANI SMITH SUSAN Unavailable Unavailable LORENA REYES Unavailable Unavailable NARENDRA KIM Unavailable Unavailable BERTRAND HERNANDEZ Unavailable Unavailable DANNY SWANSON Unavailable Unavailable Problems This patient has no known problems. Allergies, Adverse Reactions, Alerts This patient has no known allergies or adverse reactions. Medications This patient has no known medications. Results Test Description Test Time Test Comments Text Results Atomic Results Result Comments BLOOD CULTURE 2019-05-20 19:01:00 Test Item Value Reference Range Comments CULTURE (BEAKER) (test ixai=9730) No growth in 5 days BLOOD [id number] 19:01:00 Test Item Value Reference Range Comments CULTURE (BEAKER) (test wnfb=7010) No growth in 5 days CATHETER TIP [id number] 08:39:00 Test Item Value Reference Range Comments CULTURE (BEAKER) (test akgi=3042) No growth CBC W/PLT COUNT & AUTO [id number] 06:09:00 Test Item Value Reference Range Comments WHITE BLOOD CELL COUNT (BEAKER) (test sbhm=299) 4.7 K/ L 3.5-10.5 RED BLOOD CELL COUNT (BEAKER) (test qyhe=042) 3.59 M/ L 4.63-6.08 HEMOGLOBIN (BEAKER) (test qoky=573) 10.6 GM/DL 13.7-17.5 HEMATOCRIT (BEAKER) (test qkhm=977) 32.5 % 40.1-51.0 MEAN CORPUSCULAR VOLUME (BEAKER) (test ptbh=286) 90.5 fL 79.0-92.2 MEAN CORPUSCULAR HEMOGLOBIN (BEAKER) (test 29.5 pg 25.7-32.2 wqbv=196) MEAN CORPUSCULAR HEMOGLOBIN CONC (BEAKER) (test 32.6 GM/DL 32.3-36.5 bsxl=980) RED CELL DISTRIBUTION WIDTH (BEAKER) (test 13.8 % 11.6-14.4 krlu=415) PLATELET COUNT (BEAKER) (test egru=406) 87 K/CU MM 150-450 MEAN PLATELET VOLUME (BEAKER) (test tfjf=775) 10.5 fL 9.4-12.4 NUCLEATED RED BLOOD CELLS (BEAKER) (test 0 /100 WBC 0-0 azfh=670) NEUTROPHILS RELATIVE PERCENT (BEAKER) (test 45 % guks=722) LYMPHOCYTES RELATIVE PERCENT (BEAKER) (test 33 % ucmu=338) MONOCYTES RELATIVE PERCENT (BEAKER) (test 13 % bnyy=561) EOSINOPHILS RELATIVE PERCENT (BEAKER) (test 7 % racy=717) BASOPHILS RELATIVE PERCENT (BEAKER) (test 2 % vjpl=488) NEUTROPHILS ABSOLUTE COUNT (BEAKER) (test 2.10 K/ L 1.78-5.38 wtqr=747) LYMPHOCYTES ABSOLUTE COUNT (BEAKER) (test 1.53 K/ L 1.32-3.57 xvpa=761) MONOCYTES ABSOLUTE COUNT (BEAKER) (test xwtw=823) 0.62 K/ L 0.30-0.82 EOSINOPHILS ABSOLUTE COUNT (BEAKER) (test 0.33 K/ L 0.04-0.54 assk=166) BASOPHILS ABSOLUTE COUNT (BEAKER) (test jnwr=405) 0.08 K/ L 0.01-0.08 IMMATURE GRANULOCYTES-RELATIVE PERCENT (BEAKER) 0 % 0-1 (test oquy=9955) RAD, CHEST, 1 VIEW, NON [id number] 17:11:00Reason for exam:->post picc line insertionShould this be performed at the bedside?->YesFINAL REPORT Chest, 1 view, 05/18/2019 5:11 PM. History: PICC insertion. Comparison: 05/15/2019. Discussion: A new right upper extremity PICC terminates near the cavoatrial junction. Right IJ Port-A-Cath is no longer seen. The cardiomediastinal silhouette and pulmonary vasculature are within normal limits for a portable exam. The lungs are clear without evidence of consolidation or effusion. The soft tissues and osseous structures are intact. IMPRESSION: No acute cardiopulmonary abnormality. PICC in adequate position. Signed: Dani Valles MDReport Verified Date/Time: 05/18/2019 17:11:42 Reading Location: [facility] Radiology Reading Room VANCOMYCIN LEVEL, [id number] 15:49:00 Test Item Value Reference Range Comments VANCOMYCIN TROUGH (BEAKER) (test gtvz=323) 33.9 ug/mL 10.0-20.0 Please draw 30 min prior to next doseRHEUMATOID FACTOR AB, REFLEX TO [id number] 11:01:00 Test Item Value Reference Range Comments RHEUMATOID FACTOR (BEAKER) (test gryw=021) Negative C-REACTIVE [id number] 06:25:00 Test Item Value Reference Range Comments C-REACTIVE PROTEIN (BEAKER) (test efwf=637) 0.76 mg/dL 0.00-0.50 ANG, REMOVAL OF TUNNELED CVC [id number] 11:43:00Reason for exam:->port removal. TEJAS with suspected endocarditisFINAL REPORT Procedure: Right IJ port a cath removal. History: Catheter no longer needed. Colorer Machine: KHANH Karimi. Dr. Ugarte was the supervising attending radiologist. Seismic Survey Assistant: None. Modality: Fluoroscopy. DOSE REDUCTION: The examination was performed according to departmental dose- optimization program. Fluoro time: 0.1 minutes Radiation dose for this procedure was 0.6 mGy air Kerma. Number of images: Two Sedation: Midazolam one mg, Fentanyl 50 micrograms IV. A dedicated RN administered and monitored intravenous conscious sedation under direct supervisionof Dr. Ugarte. Physician intra-service sedation time was 33 minutes. Anesthesia: Lidocaine local infiltration. Estimated blood loss: < 5 cc. Technique: Informed written consent was obtained. Discussion of risks, benefits, and alternatives were made with the patient. The patient expressed understanding and agreed to proceed. A universal timeout was performed prior to starting the procedure. The procedure room personnel used personal protective equipment. The operators additionally used sterile gown and gloves. The ipsilateral lower neck and chest were prepped with chlorhexidine gluconate and draped in the standard sterile fashion. Local anesthesia was infiltrated along the port reservoir pocket. Using sharp dissection, the port was exposed. The catheter was retrieved from the venous system. The port reservoir was removed using sharp and blunt dissection. The reservoir pocket was irrigated. Hemostasis was achieved with manual compression. The incision was closed in layers using absorbable suture and Dermabond. An aseptic dressing was applied. The patient was transferred to the recovery area and was discharged from the department in stable condition. Complications: None immediate. Impression: Successful removal of a right IJ route Port-A-Cath catheter as described above. Pre and post procedure X-rays showed port in place and successful removal of the port with no residual fragment. Thank you for the opportunity to assistin the care of your patient. Signed: Poli Ugarteeport Verified Date/Time: 05/17/2019 11:43:56 Reading Location: [place] [address] Angio Body Reading Room C-REACTIVE [id number] 06:37:00 Test Item Value Reference Range Comments C-REACTIVE PROTEIN (BEAKER) (test juiq=254) 0.78 mg/dL 0.00-0.50 BASIC METABOLIC [id number] 06:35:00 Test Item Value Reference Range Comments SODIUM (BEAKER) (test 142 meq/L 136-145 oduc=363) POTASSIUM (BEAKER) (test 4.0 meq/L 3.5-5.1 itfv=854) CHLORIDE (BEAKER) (test 107 meq/L 98-107 uyuz=750) CO2 (BEAKER) (test 30 meq/L 22-29 lcco=842) BLOOD UREA NITROGEN 20 mg/dL 7-21 (BEAKER) (test ilpz=284) CREATININE (BEAKER) (test 1.03 mg/dL 0.57-1.25 hxhr=767) GLUCOSE RANDOM (BEAKER) 90 mg/dL 70-105 (test uegj=217) CALCIUM (BEAKER) (test 8.7 mg/dL 8.4-10.2 jojz=468) EGFR (BEAKER) (test 76 mL/min/1.73 sq m ESTIMATED GFR IS NOT egqu=8963) ACCURATE CREATININE CLEARANCE IN PREDICTING GLOMERULAR FILTRATION RATE. ESTIMATED GFR IS NOT APPLICABLE FOR DIALYSIS PATIENTS. [id number] 06:19:00 Test Item Value Reference Range Comments PROCALCITONIN (BEAKER) (test noax=7810) 0.07 ng/mL <0.05 SEPSIS RISK (ng/mL)Low: 0.05-0.50Intermediate: 0.51-2.00High: & gt;=2.01CBC W/PLT COUNT & AUTO [id number] 05:49:00 Test Item Value Reference Range Comments WHITE BLOOD CELL COUNT (BEAKER) (test qdic=011) 5.8 K/ L 3.5-10.5 RED BLOOD CELL COUNT (BEAKER) (test tkty=635) 3.63 M/ L 4.63-6.08 HEMOGLOBIN (BEAKER) (test cdlk=529) 10.7 GM/DL 13.7-17.5 HEMATOCRIT (BEAKER) (test nsww=325) 33.2 % 40.1-51.0 MEAN CORPUSCULAR VOLUME (BEAKER) (test yikf=036) 91.5 fL 79.0-92.2 MEAN CORPUSCULAR HEMOGLOBIN (BEAKER) (test 29.5 pg 25.7-32.2 oeid=169) MEAN CORPUSCULAR HEMOGLOBIN CONC (BEAKER) (test 32.2 GM/DL 32.3-36.5 utvj=703) RED CELL DISTRIBUTION WIDTH (BEAKER) (test 13.7 % 11.6-14.4 svce=230) PLATELET COUNT (BEAKER) (test fsfi=618) 70 K/CU MM 150-450 MEAN PLATELET VOLUME (BEAKER) (test gsny=844) 10.1 fL 9.4-12.4 NUCLEATED RED BLOOD CELLS (BEAKER) (test 0 /100 WBC 0-0 mxea=245) NEUTROPHILS RELATIVE PERCENT (BEAKER) (test 51 % zhgr=068) LYMPHOCYTES RELATIVE PERCENT (BEAKER) (test 31 % boya=342) MONOCYTES RELATIVE PERCENT (BEAKER) (test 11 % abmk=346) EOSINOPHILS RELATIVE PERCENT (BEAKER) (test 5 % qyqm=143) BASOPHILS RELATIVE PERCENT (BEAKER) (test 1 % xyww=456) NEUTROPHILS ABSOLUTE COUNT (BEAKER) (test 2.96 K/ L 1.78-5.38 wvaw=555) LYMPHOCYTES ABSOLUTE COUNT (BEAKER) (test 1.78 K/ L 1.32-3.57 xfsx=528) MONOCYTES ABSOLUTE COUNT (BEAKER) (test lpgw=204) 0.66 K/ L 0.30-0.82 EOSINOPHILS ABSOLUTE COUNT (BEAKER) (test 0.29 K/ L 0.04-0.54 rklu=560) BASOPHILS ABSOLUTE COUNT (BEAKER) (test ajpf=803) 0.07 K/ L 0.01-0.08 IMMATURE GRANULOCYTES-RELATIVE PERCENT (BEAKER) 0 % 0-1 (test tlwh=0005) RAD, CHEST, 1 VIEW, NON [id number] 23:38:00Reason for exam:->retained line in subclavian?Should this be performed at the bedside?->YesFINAL REPORT AP chest dated 05/15/2019 Comment: Heart is normal in size. Port-A-Cath is present. Pulmonary vasculature is unremarkable. Lungs are clear. No pulmonary infiltrate orpleural effusion. Impression: No active cardiopulmonary disease. Signed: Kiara Katz MDReport Verified Date/Time: 05/15 23:38:58 Reading Location: [address] Consult Reading Room [place], ANGIOGRAM , [id number] 06:38:00Reason for exam:->evaluate intermittent vision lossAnesthesia:->MACFINAL REPORT DATE OF PROCEDURE: SURGEON: Adina Khan M.D. MEDICAL STAFFING COORDINATOR: Camille Odom MD PREOPERATIVE DIAGNOSIS: vision loss POST OPERATIVE DIAGNOSIS: vision loss PROCEDURE: Cerebral Angiogram ANESTHESIA: MAC ESTIMATED BLOOD LOSS: Minimal COMPLICATIONS: None INDICATIONS: The patient is a 53 years old Male with history of prior stroke, s/p thrombectomy, who presented with intermittent, progressive right sided vision loss. Non-invasive imaging has been unrevealing and he is referred for angiogram for further evaluation. PROCEDURE: Following explanation of the benefits, risks and alternatives for the procedure, informed consent was obtained from the patient. The risks including but not limited to stroke, intracranial hemorrhage, vascular injury to the cervical or femoral vessels and puncture site hematoma were discussed with the patient. A time-out was performed.The right arm was prepped in the usual sterile fashion using Chloraprep, and sterilely draped. The skin over the right anatomic snuffbox was anesthetized with 2% lidocaine. Using ultrasound guidance, asingle wall puncture of the right radial artery was performed using a micropuncture set and a 5-Fr short sheath was inserted into the right radial artery and maintained on heparinized flush. The sheathwas flushed with a solution containing 2000 units of heparin, 80 mg lidocaine, and 5 mg verapamil. Using coaxial technique, a 5- Fr Angled [place] catheter was advanced into the subclavian, back-bled, and flushed in the usual fashion. Using coaxial technique, the catheter was advanced into the innominate artery, confirming the location with fluoroscopy, and with the aid of the roadmapping, digital fluoroscopy, and careful guidewire manipulation the right carotid, left carotid, left vertebral and right vertebral arteries were catheterized. Upon each successive selective catheterization, digital subtraction angiography using the appropriate rate and volume of contrast in multiple projections was performed. The catheter was removed. The sheath was removed and hemostasis was achieved with a TR band. The patient tolerated the procedure well and was taken back to the floor in stable condition. FINDINGS: RIGHT COMMON CAROTID ARTERY (DSA - PA, LATERAL - CERVICAL ) The origins of the right internal and external carotid arteries are widely patent without evidence of ulceration or stenosis. RIGHT COMMON CAROTID ARTERY ( DSA - PA, LATERAL, OBLIQUE - HEAD) The petrous, cavernous, supraclinoid, and terminalsegments of the ICA are patent without any stenosis. There is physiologic filling of the MCA and ACAbranches and territories. The right opthalmic artery is poorly visualized, which may be due to priorembolic event or to study limitation. The choroidal blush of the right eye is present, suggestive adequate collateral flow to the eye. There is a large size posterior communicating artery. There is no spontaneous crossfilling across the anterior communicating artery. No vascular malformation or arteriovenous shunting is noted. No stenosis or vasospasm is observed. No significant abnormalities are seen in the capillary and venous phases. The venous phase demonstrates patent transverse and sigmoid sinuses. The visualized portions of the external carotid artery and its branches are normal without evidence of ulceration or stenosis. There is no evidence of arteriovenous shunting. The venous phase is normal. RIGHT VERTEBRAL ARTERY (DSA - PA, LATERAL - HEAD) The right vertebral artery is patent withoutsignificant stenotic lesion. The basilar artery shows no significant abnormality. There is symmetriccaudal regression of the basilar artery. There is no contrast reflux into the left vertebral artery.No aneurysms , vascular malformations, or stenotic lesions are noted in the vertebrobasilar system. The venous phase shows patent bilateral transverse and sigmoid sinuses. LEFT COMMON CAROTID ARTERY (DSA - PA, LATERAL - CERVICAL) The origins of the left internal and external carotid arteries are widelypatent without evidence of ulceration or stenosis. LEFT COMMON CAROTID ARTERY (DSA - PA, LATERAL, OBLIQUE - HEAD) The petrous, cavernous, supraclinoid, and terminal segments of the ICA are patent without any stenosis. There is physiologic filling of the MCA and MIGEL branches and territories.There is nospontaneous crossfilling across the anterior communicating artery with opacification of the distal right anterior cerebral artery territory. There is a very small posterior communicating artery. No vascular malformations, stenosis, or vasospasm is observed. No significant abnormalities are seen in thecapillary and venous phases. The venous phase demonstrates patent transverse and sigmoid sinuses. The visualized portions of the external carotid artery and its branches are normal without evidence of ulceration or stenosis. There is no evidence of arteriovenous shunting. The venous phase is normal. LEFT SUBCLAVIAN ARTERY ( ROADMAP - PA - CERVICAL) The origin of the left vertebral artery is patent without significant stenosis. LEFT VERTEBRAL ARTERY (DSA - PA, LATERAL - HEAD) The left vertebral arteryis patent without significant stenotic lesion. The basilar artery shows no significant abnormality. There is symmetric caudal regression of the basilar artery. There is no contrast reflux into the right vertebral artery. No aneurysms, vascular malformations, or stenotic lesions are noted in the vertebrobasilar system. The venous phase shows patent bilateral transverse and sigmoid sinuses. SUPERVISIONAND INTERPRETATION: Angiographic study demonstrates: 1. Poor visualization of right opthalmic artery, which may reflect embolic event, but with orbital choroidal blush, suggestive of collateral vascularization 2. No other abnormalities noted No immediate technical or clinical complications. Signed: Adina Khanort Verified Date/ Time: 05/15/2019 06:38:47 Reading Location: [facility] Room PROTHROMBIN [id number] 09:42:00 Test Item Value Reference Range Comments PROTIME (BEAKER) (test qdfs=960) 15.0 seconds 11.9-14.2 INR (BEAKER) (test twjw=210) 1.2 <=5.9 Effective 12/06/2018: PT Reference Range ChangeNew: 11.9-14.2 Previous: 11.7- 14.7RECOMMENDED COUMADIN/WARFARIN INR THERAPY RANGESSTANDARD DOSE: 2.0-3.0 Includes: PROPHYLAXIS for venous thrombosis, systemic embolization; TREATMENT for venous thrombosis and/or pulmonary embolus.HIGH RISK: Target INR is2.5-3.5 for patients wiht mechanical heart valves.[id number] 09:42:00 Test Item Value Reference Range Comments PARTIAL THROMBOPLASTIN TIME (BEAKER) (test 36.9 seconds 22.5-36.0 pyoo=299) BASIC METABOLIC [id number] 09:35:00 Test Item Value Reference Range Comments SODIUM (BEAKER) (test 142 meq/L 136-145 deih=281) POTASSIUM (BEAKER) (test 3.3 meq/L 3.5-5.1 igqg=516) CHLORIDE (BEAKER) (test 104 meq/L 98-107 bxng=615) CO2 (BEAKER) (test 28 meq/L 22-29 clta=705) BLOOD UREA NITROGEN 17 mg/dL 7-21 (BEAKER) (test fdcx=849) CREATININE (BEAKER) (test 1.07 mg/dL 0.57-1.25 kndv=637) GLUCOSE RANDOM (BEAKER) 112 mg/dL 70-105 (test umto=130) CALCIUM (BEAKER) (test 9.2 mg/dL 8.4-10.2 tzqn=705) EGFR (BEAKER) (test 73 mL/min/1.73 sq m ESTIMATED GFR IS NOT vpcv=2699) ACCURATE CREATININE CLEARANCE IN PREDICTING GLOMERULAR FILTRATION RATE. ESTIMATED GFR IS NOT APPLICABLE FOR DIALYSIS PATIENTS. CBC W/PLT COUNT & AUTO [id number] 09:25:00 Test Item Value Reference Range Comments WHITE BLOOD CELL COUNT (BEAKER) (test injg=421) 4.8 K/ L 3.5-10.5 RED BLOOD CELL COUNT (BEAKER) (test lmpr=748) 4.00 M/ L 4.63-6.08 HEMOGLOBIN (BEAKER) (test qhlt=860) 11.8 GM/DL 13.7-17.5 HEMATOCRIT (BEAKER) (test jgtb=481) 36.9 % 40.1-51.0 MEAN CORPUSCULAR VOLUME (BEAKER) (test ghoa=659) 92.3 fL 79.0-92.2 MEAN CORPUSCULAR HEMOGLOBIN (BEAKER) (test 29.5 pg 25.7-32.2 oqtn=662) MEAN CORPUSCULAR HEMOGLOBIN CONC (BEAKER) (test 32.0 GM/DL 32.3-36.5 owra=581) RED CELL DISTRIBUTION WIDTH (BEAKER) (test 13.8 % 11.6-14.4 pfoz=865) PLATELET COUNT (BEAKER) (test vmyj=557) 107 K/CU MM 150-450 MEAN PLATELET VOLUME (BEAKER) (test vipn=298) 10.1 fL 9.4-12.4 NUCLEATED RED BLOOD CELLS (BEAKER) (test 0 /100 WBC 0-0 kuyq=073) NEUTROPHILS RELATIVE PERCENT (BEAKER) (test 58 % egjc=019) LYMPHOCYTES RELATIVE PERCENT (BEAKER) (test 27 % kyud=315) MONOCYTES RELATIVE PERCENT (BEAKER) (test 8 % hgvn=309) EOSINOPHILS RELATIVE PERCENT (BEAKER) (test 6 % opkj=712) BASOPHILS RELATIVE PERCENT (BEAKER) (test 1 % uyvv=012) NEUTROPHILS ABSOLUTE COUNT (BEAKER) (test 2.83 K/ L 1.78-5.38 lvws=001) LYMPHOCYTES ABSOLUTE COUNT (BEAKER) (test 1.29 K/ L 1.32-3.57 dmfm=807) MONOCYTES ABSOLUTE COUNT (BEAKER) (test 0.39 K/ L 0.30-0.82 hlge=192) EOSINOPHILS ABSOLUTE COUNT (BEAKER) (test 0.27 K/ L 0.04-0.54 feod=533) BASOPHILS ABSOLUTE COUNT (BEAKER) (test 0.05 K/ L 0.01-0.08 mrzj=110) IMMATURE GRANULOCYTES-RELATIVE PERCENT (BEAKER) 0 % 0-1 (test louv=0226) HEPATIC FUNCTION [id number] 07:46:00 Test Item Value Reference Range Comments TOTAL PROTEIN (BEAKER) (test kewx=573) 5.8 gm/dL 6.0-8.3 ALBUMIN (BEAKER) (test ylmx=7457) 3.3 g/dL 3.5-5.0 BILIRUBIN TOTAL (BEAKER) (test qeld=872) 0.7 mg/dL 0.2-1.2 BILIRUBIN DIRECT (BEAKER) (test nakt=071) 0.4 mg/dL 0.1-0.5 ALKALINE PHOSPHATASE (BEAKER) (test kvbc=293) 116 U/L 40-150 AST (SGOT) (BEAKER) (test djcy=198) 32 U/L 5-34 ALT (SGPT) (BEAKER) (test bsuo=316) 27 U/L 6-55 BASIC METABOLIC [id number] 07:46:00 Test Item Value Reference Range Comments SODIUM (BEAKER) (test 144 meq/L 136-145 izpt=928) POTASSIUM (BEAKER) (test 3.6 meq/L 3.5-5.1 qdkz=689) CHLORIDE (BEAKER) (test 112 meq/L 98-107 ddtv=073) CO2 (BEAKER) (test 26 meq/L 22-29 qnuw=984) BLOOD UREA NITROGEN 18 mg/dL 7-21 (BEAKER) (test rbnv=254) CREATININE (BEAKER) (test 1.00 mg/dL 0.57-1.25 jdrd=777) GLUCOSE RANDOM (BEAKER) 93 mg/dL 70-105 (test rtyf=221) CALCIUM (BEAKER) (test 8.2 mg/dL 8.4-10.2 hsik=053) EGFR (BEAKER) (test 78 mL/min/1.73 sq m ESTIMATED GFR IS NOT oynx=6207) ACCURATE CREATININE CLEARANCE IN PREDICTING GLOMERULAR FILTRATION RATE. ESTIMATED GFR IS NOT APPLICABLE FOR DIALYSIS PATIENTS. CBC W/PLT COUNT & AUTO [id number] 07:01:00 Test Item Value Reference Range Comments WHITE BLOOD CELL COUNT (BEAKER) (test khrl=861) 5.9 K/ L 3.5-10.5 RED BLOOD CELL COUNT (BEAKER) (test nkhl=814) 3.48 M/ L 4.63-6.08 HEMOGLOBIN (BEAKER) (test msfg=388) 10.4 GM/DL 13.7-17.5 HEMATOCRIT (BEAKER) (test hfvd=584) 32.8 % 40.1-51.0 MEAN CORPUSCULAR VOLUME (BEAKER) (test nrck=759) 94.3 fL 79.0-92.2 MEAN CORPUSCULAR HEMOGLOBIN (BEAKER) (test 29.9 pg 25.7-32.2 yopo=762) MEAN CORPUSCULAR HEMOGLOBIN CONC (BEAKER) (test 31.7 GM/DL 32.3-36.5 ergh=377) RED CELL DISTRIBUTION WIDTH (BEAKER) (test 13.7 % 11.6-14.4 knih=655) PLATELET COUNT (BEAKER) (test sdzx=107) 82 K/CU MM 150-450 MEAN PLATELET VOLUME (BEAKER) (test gphz=821) 9.8 fL 9.4-12.4 NUCLEATED RED BLOOD CELLS (BEAKER) (test 0 /100 WBC 0-0 mwqx=875) NEUTROPHILS RELATIVE PERCENT (BEAKER) (test 51 % tjvc=618) LYMPHOCYTES RELATIVE PERCENT (BEAKER) (test 33 % oagc=730) MONOCYTES RELATIVE PERCENT (BEAKER) (test 10 % evfr=306) EOSINOPHILS RELATIVE PERCENT (BEAKER) (test 5 % ljnj=629) BASOPHILS RELATIVE PERCENT (BEAKER) (test 1 % hxen=038) NEUTROPHILS ABSOLUTE COUNT (BEAKER) (test 2.98 K/ L 1.78-5.38 kpub=950) LYMPHOCYTES ABSOLUTE COUNT (BEAKER) (test 1.92 K/ L 1.32-3.57 dxfs=294) MONOCYTES ABSOLUTE COUNT (BEAKER) (test jgeo=632) 0.61 K/ L 0.30-0.82 EOSINOPHILS ABSOLUTE COUNT (BEAKER) (test 0.28 K/ L 0.04-0.54 hcnc=904) BASOPHILS ABSOLUTE COUNT (BEAKER) (test pjvv=472) 0.07 K/ L 0.01-0.08 IMMATURE GRANULOCYTES-RELATIVE PERCENT (BEAKER) 0 % 0-1 (test ewpu=9890) HEPATIC FUNCTION [id number] 05:39:00 Test Item Value Reference Range Comments TOTAL PROTEIN (BEAKER) (test nlyi=576) 6.0 gm/dL 6.0-8.3 ALBUMIN (BEAKER) (test zmuh=3825) 3.5 g/dL 3.5-5.0 BILIRUBIN TOTAL (BEAKER) (test cuit=024) 1.0 mg/dL 0.2-1.2 BILIRUBIN DIRECT (BEAKER) (test wipw=875) 0.5 mg/dL 0.1-0.5 ALKALINE PHOSPHATASE (BEAKER) (test ipau=824) 125 U/L 40-150 AST (SGOT) (BEAKER) (test czuy=515) 31 U/L 5-34 ALT (SGPT) (BEAKER) (test ahlx=351) 25 U/L 6-55 BASIC METABOLIC [id number] 05:39:00 Test Item Value Reference Range Comments SODIUM (BEAKER) (test 141 meq/L 136-145 ofos=103) POTASSIUM (BEAKER) (test 3.5 meq/L 3.5-5.1 ejbp=472) CHLORIDE (BEAKER) (test 109 meq/L 98-107 xxds=319) CO2 (BEAKER) (test 26 meq/L 22-29 rxhv=155) BLOOD UREA NITROGEN 16 mg/dL 7-21 (BEAKER) (test iyln=045) CREATININE (BEAKER) (test 1.07 mg/dL 0.57-1.25 lrsd=942) GLUCOSE RANDOM (BEAKER) 94 mg/dL 70-105 (test vlsx=755) CALCIUM (BEAKER) (test 8.4 mg/dL 8.4-10.2 vmft=293) EGFR (BEAKER) (test 73 mL/min/1.73 sq m ESTIMATED GFR IS NOT lzrk=2810) ACCURATE CREATININE CLEARANCE IN PREDICTING GLOMERULAR FILTRATION RATE. ESTIMATED GFR IS NOT APPLICABLE FOR DIALYSIS PATIENTS. CBC W/PLT COUNT & AUTO [id number] 05:19:00 Test Item Value Reference Range Comments WHITE BLOOD CELL COUNT (BEAKER) (test sudb=619) 6.5 K/ L 3.5-10.5 RED BLOOD CELL COUNT (BEAKER) (test yurd=940) 3.63 M/ L 4.63-6.08 HEMOGLOBIN (BEAKER) (test ghrn=582) 10.8 GM/DL 13.7-17.5 HEMATOCRIT (BEAKER) (test fqnh=888) 33.4 % 40.1-51.0 MEAN CORPUSCULAR VOLUME (BEAKER) (test whtm=997) 92.0 fL 79.0-92.2 MEAN CORPUSCULAR HEMOGLOBIN (BEAKER) (test 29.8 pg 25.7-32.2 qzcu=322) MEAN CORPUSCULAR HEMOGLOBIN CONC (BEAKER) (test 32.3 GM/DL 32.3-36.5 fahf=382) RED CELL DISTRIBUTION WIDTH (BEAKER) (test 13.5 % 11.6-14.4 zduy=922) PLATELET COUNT (BEAKER) (test vwdo=530) 104 K/CU MM 150-450 MEAN PLATELET VOLUME (BEAKER) (test ddea=917) 10.0 fL 9.4-12.4 NUCLEATED RED BLOOD CELLS (BEAKER) (test 0 /100 WBC 0-0 fxwg=182) NEUTROPHILS RELATIVE PERCENT (BEAKER) (test 54 % yhag=098) LYMPHOCYTES RELATIVE PERCENT (BEAKER) (test 28 % uieg=893) MONOCYTES RELATIVE PERCENT (BEAKER) (test 12 % tnaj=918) EOSINOPHILS RELATIVE PERCENT (BEAKER) (test 5 % woao=986) BASOPHILS RELATIVE PERCENT (BEAKER) (test 1 % jpzr=537) NEUTROPHILS ABSOLUTE COUNT (BEAKER) (test 3.50 K/ L 1.78-5.38 jfyi=372) LYMPHOCYTES ABSOLUTE COUNT (BEAKER) (test 1.79 K/ L 1.32-3.57 zlig=975) MONOCYTES ABSOLUTE COUNT (BEAKER) (test 0.76 K/ L 0.30-0.82 lgmi=571) EOSINOPHILS ABSOLUTE COUNT (BEAKER) (test 0.35 K/ L 0.04-0.54 esgs=220) BASOPHILS ABSOLUTE COUNT (BEAKER) (test 0.08 K/ L 0.01-0.08 rvit=191) IMMATURE GRANULOCYTES-RELATIVE PERCENT (BEAKER) 0 % 0-1 (test nwwi=4807) [id number] 13:38:00 Test Item Value Reference Range Comments RPR SCREEN (BEAKER) (test iphb=567) Nonreactive Nonreactive HEMOGLOBIN [id number] 08:39:00 Test Item Value Reference Range Comments HEMOGLOBIN A1C (BEAKER) (test xgpt=840) 5.2 % 4.3-6.1 [id number] 06:23:00 Test Item Value Reference Range Comments THYROID STIMULATING HORMONE (BEAKER) (test 2.45 uIU/mL 0.35-4.94 vrpb=947) VITAMIN B12 AND [id number] 06:23:00 Test Item Value Reference Range Comments VITAMIN B12 (BEAKER) (test tbvq=011) 466 pg/mL 213-816 FOLATE (BEAKER) (test ulnj=399) 9.5 ng/mL >=7.0 C-REACTIVE [id number] 06:23:00 Test Item Value Reference Range Comments C-REACTIVE PROTEIN (BEAKER) (test oqtl=255) 0.42 mg/dL 0.00-0.50 LIPID [id number] 05:49:00 Test Item Value Reference Range Comments TRIGLYCERIDES (BEAKER) (test rqdw=338) 91 mg/dL CHOLESTEROL (BEAKER) (test xzwv=276) 111 mg/dL HDL CHOLESTEROL (BEAKER) (test cmve=414) 45 mg/dL LDL CHOLESTEROL CALCULATED (BEAKER) (test 48 mg/dL rcor=654) Triglyceride Reference Range: Low Risk <150 Borderline 150- 199 High Risk 200-499 Very High Risk >=500Cholesterol Reference Range: Low Risk <200 Borderline 200-239 High Risk > 240HDL Cholesterol Reference Range: Low Risk >=60 High Risk <40LDL Cholesterol Reference Range: Optimal <100 Near Optimal 100-129 Borderline 130-159 High 160-189 Very High >=190BASIC METABOLIC [id number] 05:49:00 Test Item Value Reference Range Comments SODIUM (BEAKER) (test 142 meq/L 136-145 zfjp=481) POTASSIUM (BEAKER) (test 3.6 meq/L 3.5-5.1 qurg=149) CHLORIDE (BEAKER) (test 109 meq/L 98-107 lylp=834) CO2 (BEAKER) (test 27 meq/L 22-29 oggg=517) BLOOD UREA NITROGEN 17 mg/dL 7-21 (BEAKER) (test ttji=516) CREATININE (BEAKER) (test 1.08 mg/dL 0.57-1.25 nqqi=237) GLUCOSE RANDOM (BEAKER) 98 mg/dL 70-105 (test ziku=206) CALCIUM (BEAKER) (test 8.5 mg/dL 8.4-10.2 pjxj=370) EGFR (BEAKER) (test 72 mL/min/1.73 sq m ESTIMATED GFR IS NOT eygr=4162) ACCURATE CREATININE CLEARANCE IN PREDICTING GLOMERULAR FILTRATION RATE. ESTIMATED GFR IS NOT APPLICABLE FOR DIALYSIS PATIENTS. HEPATIC FUNCTION [id number] 05:49:00 Test Item Value Reference Range Comments TOTAL PROTEIN (BEAKER) (test rkqs=183) 6.1 gm/dL 6.0-8.3 ALBUMIN (BEAKER) (test ovjy=5410) 3.5 g/dL 3.5-5.0 BILIRUBIN TOTAL (BEAKER) (test fqvq=452) 0.6 mg/dL 0.2-1.2 BILIRUBIN DIRECT (BEAKER) (test svhj=878) 0.3 mg/dL 0.1-0.5 ALKALINE PHOSPHATASE (BEAKER) (test efje=866) 135 U/L 40-150 AST (SGOT) (BEAKER) (test hcgi=769) 34 U/L 5-34 ALT (SGPT) (BEAKER) (test sock=630) 30 U/L 6-55 CBC W/PLT COUNT & AUTO [id number] 05:27:00 Test Item Value Reference Range Comments WHITE BLOOD CELL COUNT (BEAKER) (test vtta=482) 6.1 K/ L 3.5-10.5 RED BLOOD CELL COUNT (BEAKER) (test dcnc=704) 3.62 M/ L 4.63-6.08 HEMOGLOBIN (BEAKER) (test jbmc=060) 10.7 GM/DL 13.7-17.5 HEMATOCRIT (BEAKER) (test ivuf=682) 33.9 % 40.1-51.0 MEAN CORPUSCULAR VOLUME (BEAKER) (test ibys=045) 93.6 fL 79.0-92.2 MEAN CORPUSCULAR HEMOGLOBIN (BEAKER) (test 29.6 pg 25.7-32.2 yqhk=579) MEAN CORPUSCULAR HEMOGLOBIN CONC (BEAKER) (test 31.6 GM/DL 32.3-36.5 vtga=095) RED CELL DISTRIBUTION WIDTH (BEAKER) (test 13.5 % 11.6-14.4 gqcg=117) PLATELET COUNT (BEAKER) (test wwnq=613) 111 K/CU MM 150-450 MEAN PLATELET VOLUME (BEAKER) (test lckm=323) 9.8 fL 9.4-12.4 NUCLEATED RED BLOOD CELLS (BEAKER) (test 0 /100 WBC 0-0 iyeg=942) NEUTROPHILS RELATIVE PERCENT (BEAKER) (test 53 % khnr=947) LYMPHOCYTES RELATIVE PERCENT (BEAKER) (test 30 % rcff=866) MONOCYTES RELATIVE PERCENT (BEAKER) (test 11 % zzeq=580) EOSINOPHILS RELATIVE PERCENT (BEAKER) (test 5 % pfio=613) BASOPHILS RELATIVE PERCENT (BEAKER) (test 1 % kjrj=992) NEUTROPHILS ABSOLUTE COUNT (BEAKER) (test 3.26 K/ L 1.78-5.38 hdut=721) LYMPHOCYTES ABSOLUTE COUNT (BEAKER) (test 1.80 K/ L 1.32-3.57 habw=293) MONOCYTES ABSOLUTE COUNT (BEAKER) (test 0.65 K/ L 0.30-0.82 uddi=184) EOSINOPHILS ABSOLUTE COUNT (BEAKER) (test 0.30 K/ L 0.04-0.54 mwje=999) BASOPHILS ABSOLUTE COUNT (BEAKER) (test 0.06 K/ L 0.01-0.08 iccq=825) IMMATURE GRANULOCYTES-RELATIVE PERCENT (BEAKER) 1 % 0-1 (test mdrt=9612) CT, CAROTID, [id number] 02:56:00FINAL REPORT CLINICAL HISTORY: Neuro deficit, acute, stroke suspected TECHNIQUE: Initially, noncontrast head CT images were performed. Contiguous contrast-enhanced axial images through the neck followed by axial images through the head with coronal and sagittal reformations to assess the arterial circulation. 3-D reconstructions were performed using a volume rendered technique separately on a workstation. This exam was performed according to the departmental dose optimization program which includes automated exposure control, adjustment of the mA and/or kV according to the patient size, and/or use of an iterative reconstruction technique. COMPARISON: CTA head and neck dated 02/14/2019. FINDINGS : There is no CT evidence of acute infarct or hemorrhage. 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 There is no hydrocephalus or midline shift. The skull is intact. Examination is extremely limited by timing of contrast. Distal cerebral arteries are not well seen. The proximal middle, anterior and posterior cerebral arteries are patent. The vessels beyond the proximal [place] segments are not well seen however no abrupt occlusion is identified. The CT angiogram images of the head reveal no evidence of intracranial aneurysm, focal stenosis. The major intradural venous sinuses are patent. There is no stenosis of the proximal right internalcarotid artery by NASCET criteria. There is no stenosis of the proximal left internal carotid artery by NASCET criteria. The vertebral arteries in the neck are patent including their origins. There are dorsal spondylitic changes in the cervical spine. There are scattered subcentimeter lymph nodes in the neck. Soft tissues of the neck are normal. The visualized lung apices are clear. Right chest wall Port-A-Cath with tip terminating below the inferior margin of film. IMPRESSION:No acute intracranial infarction or hemorrhage. Examination is extremely limited by poor timing of contrast with inability to see the intracranial cerebral arteries beyond the first and proximal second segments. With this caveat there is no evidence of intracranial aneurysm, focal stenosis, or proximal branch vessel occlusion. No evidence of hemodynamically significant stenosis in the cervical carotid or vertebral arteries by NASCET criteria. Signed: Patricia Del Valle [facility] Verified Date/Time: 05/09/2019 02:56:41 [facility] [id number] 02:56:00FINAL REPORT CLINICAL HISTORY: Neuro deficit, acute, stroke suspected TECHNIQUE: Initially, noncontrast head CT images were performed. Contiguous contrast- enhanced axial images through the neck followed by axial images through the head with coronal and sagittal reformations to assess the arterial circulation. 3-D reconstructions were performed using a volume rendered technique separately on a workstation. This exam was performed according to the departmental dose optimization program which includes automated exposure control, adjustment of the mA and/or kV according to the patient size, and/or use of an iterative reconstruction technique. COMPARISON: CTA head and neck dated 02/14/2019. FINDINGS : There is no CT evidence of acute infarct or hemorrhage. 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 There is no hydrocephalus or midline shift. The skull is intact. Examination is extremely limited by timing of contrast. Distal cerebral arteries are not well seen. The proximal middle, anterior and posterior cerebral arteries are patent. The vessels beyond the proximal [place] segments are not well seen however no abrupt occlusion is identified. The CT angiogram images of the head reveal no evidence of intracranial aneurysm, focal stenosis. The major intradural venous sinuses are patent. There is no stenosis of the proximal right internalcarotid artery by NASCET criteria. There is no stenosis of the proximal left internal carotid artery by NASCET criteria. The vertebral arteries in the neck are patent including their origins. There are dorsal spondylitic changes in the cervical spine. There are scattered subcentimeter lymph nodes in the neck. Soft tissues of the neck are normal. The visualized lung apices are clear. Right chest wall Port-A-Cath with tip terminating below the inferior margin of film. IMPRESSION:No acute intracranial infarction or hemorrhage. Examination is extremely limited by poor timing of contrast with inability to see the intracranial cerebral arteries beyond the first and proximal second segments. With this caveat there is no evidence of intracranial aneurysm, focal stenosis, or proximal branch vessel occlusion. No evidence of hemodynamically significant stenosis in the cervical carotid or vertebral arteries by NASCET criteria. Signed: Patricia Del Valle [facility] Verified Date/Time: 05/09/2019 02:56:41 MR, BRAIN, WITHOUT [id number] 02:31:00FINAL REPORT MRI Brain without contrast Clinical History: Neuro deficit, acute, stroke suspected Technique: MRI of the brain utilizing axial T2, FLAIR, GRE, DWI ; sagittal and coronal T1-weighted images. Comparisons: MRI brain dated 2018. Findings: There is no evidence of acute infarct or hemorrhage. Interval evolution of previously seen acute infarction involving the right basal ganglia , right MCA territory and left [employer] territory. Remote bilateral small cerebellar hemisphere infarction. Scattered punctate areas of hypointense SWI signal in the juxtacortical white matter particularly within the right cerebellar hemisphere, nonspecific however can be seen in the setting ofchronic microhemorrhage. Hemosiderin staining within the bilateral basal ganglia and right frontal operculum favored to represent sequela of chronic hematomas. Infiltrative FLAIR/T2 hyperintense signalwithin the right posterior centrum semiovale associated with the areas of prior infarction, nonspecific however new in the interval however beyond the expected amount of edema in the setting of chronicinfarction. Multiple bilateral T2 and FLAIR hyperintense white matter foci likely represent chronic white matter microvascular disease. Generalized parenchymal volume loss with commensurate enlargementCSF spaces and ventricles. There is no hydrocephalus or midline shift. There are no extra-axial fluid collections. The craniocervical junction is preserved. The major intracranial flow-voids appear patent. Paranasal sinuses are clear. Middle ears and mastoid air cells are clear. Intraorbital contentsare unremarkable. No aggressive osseous or soft tissue lesions identified. IMPRESSION:No acute infarction is identified. Interval evolution of previously seen acute infarction involving the right basalganglia, right MCA territory and left [employer] territory. Infiltrative FLAIR/T2 hyperintense signal within the right posterior centrum semiovale associated with the areas of prior infarction, nonspecific however more conspicuous in the interval. Findings may reflect sequelae of prior infarction and microvascular ischemic changes however infiltrative lesion versus inflammatory changes cannot be excluded. Recommend repeat examination after the administration of contrast material versus short interval follow-up. S[facility] Verified Date/Time: 05/09/2019 02:31:29 URINALYSIS W/ REFLEX URINE [id number] 21:42:00 Test Item Value Reference Range Comments COLOR (BEAKER) (test hagk=409) Yellow CLARITY (BEAKER) (test mqmj=352) Hazy SPECIFIC GRAVITY UA (BEAKER) (test ngmq=987) 1.011 1.001-1.035 PH UA (BEAKER) (test virz=028) 6.0 5.0-8.0 PROTEIN UA (BEAKER) (test wyhj=451) 20 mg/dL Negative GLUCOSE UA (BEAKER) (test vtjd=799) Negative Negative KETONES UA (BEAKER) (test djcv=455) Negative Negative BILIRUBIN UA (BEAKER) (test dgmr=176) Negative Negative BLOOD UA (BEAKER) (test mxfj=712) Trace Negative NITRITE UA (BEAKER) (test yukd=439) Negative Negative LEUKOCYTE ESTERASE UA (BEAKER) (test dzuc=285) Moderate Negative UROBILINOGEN UA (BEAKER) (test jnci=836) 0.2 mg/dL 0.2-1.0 RBC UA (BEAKER) (test kedw=118) 5 /HPF WBC UA (BEAKER) (test svmp=629) 56 /HPF SQUAMOUS EPITHELIAL (BEAKER) (test gnkj=993) 2 /HPF SOURCE(BEAKER) (test wziw=0882) B-TYPE NATRIURETIC FACTOR (BNP)2019-05-08 19:04:00 Test Item Value Reference Range Comments B-TYPE NATRIURETIC PEPTIDE (BEAKER) (test ekvt=122) 77 pg/mL 0-100 TROPONIN [id number] 19:04:00 Test Item Value Reference Range Comments TROPONIN I (BEAKER) (test dnln=261) < ng/mL 0.00-0.03 Troponin I (TnI) levels must [...] failure, acidosis, acute neurological disease, and persistent tachyarrhythmia.[id number] 19:00:00 Test Item Value Reference Range Comments PROTIME (BEAKER) (test gscg=748) 18.0 seconds 11.9-14.2 INR (BEAKER) (test klyo=022) 1.6 <=5.9 PARTIAL THROMBOPLASTIN TIME (BEAKER) (test 30.2 seconds 22.5-36.0 merk=596) Effective 12/06/2018: PT Reference Range ChangeNew: 11.9-14.2 Previous: 11.7- 14.7RECOMMENDED COUMADIN/WARFARIN INR THERAPY RANGESSTANDARD DOSE: 2.0-3.0 Includes: PROPHYLAXIS for venous thrombosis, systemic embolization; TREATMENT for venous thrombosis and/or pulmonary embolus.HIGH RISK: Target INR is2.5-3.5 for patients wiht mechanical heart valves.[id number] 18:58:00 Test Item Value Reference Range Comments MAGNESIUM (BEAKER) (test 2.1 mg/dL 1.6-2.6 Specimen slightly hemolyzed dmps=170) [id number] 18:58:00 Test Item Value Reference Range Comments PHOSPHORUS (BEAKER) (test 3.4 mg/dL 2.3-4.7 Specimen slightly hemolyzed mmuh=537) BASIC METABOLIC [id number] 18:58:00 Test Item Value Reference Range Comments SODIUM (BEAKER) (test 142 meq/L 136-145 mlaa=400) POTASSIUM (BEAKER) (test 3.7 meq/L 3.5-5.1 Specimen slightly xvlq=147) hemolyzed CHLORIDE (BEAKER) (test 107 meq/L 98-107 ubqs=023) CO2 (BEAKER) (test 29 meq/L 22-29 ofpt=609) BLOOD UREA NITROGEN 18 mg/dL 7-21 (BEAKER) (test zioi=028) CREATININE (BEAKER) (test 1.14 mg/dL 0.57-1.25 Specimen slightly ihhd=731) hemolyzed GLUCOSE RANDOM (BEAKER) 102 mg/dL 70-105 (test synp=804) CALCIUM (BEAKER) (test 8.8 mg/dL 8.4-10.2 gxjq=111) EGFR (BEAKER) (test 67 mL/min/1.73 sq m ESTIMATED GFR IS NOT xqby=8940) ACCURATE CREATININE CLEARANCE IN PREDICTING GLOMERULAR FILTRATION RATE. ESTIMATED GFR IS NOT APPLICABLE FOR DIALYSIS PATIENTS. CREATINE KINASE (CK)2019-05-08 18:58:00 Test Item Value Reference Range Comments CREATINE KINASE TOTAL (BEAKER) (test amjg=282) 63 U/L 29-200 CT, BRAIN, WITHOUT [id number] 18:57:00Reason for exam:->EYE PROBLEMWhat is the patient's sedation requirement?->No SedationFINAL REPORT CT, BRAIN, WITHOUT CONTRAST INDICATION: Vision loss, binocularEYE PROBLEM TECHNIQUE: Noncontrast axial imaging was obtained from the vertex to the skull base. Axial images were reconstructed using a bone algorithm. DOSE REDUCTION: Dose modulation, iterative reconstruction, and/or weight-based adjustment of the mA/kV was utilized to reduce the radiation dose to as low as reasonably achievable. COMPARISON: CT 02/14/2019 FINDINGS: Intracranial: Interval multifocal infarcts within the right champion radiata, age indeterminate. No intracranial hemorrhage or abnormal extra-axial collection. No loss of finney-white differentiation. No mass effect. No hydrocephalus. Osseous structures: No fracture. No suspicious lesion. Paranasal sinuses and mastoid air cells: No evidence ofsinusitis. Mastoids are clear. Orbital contents : Globes are intact. IMPRESSION: Interval age-indeterminate multifocal infarcts within the right champion radiata. MRI could be obtained to determine if these are acute, as clinically appropriate. No acute intracranial hemorrhage. Signed: Nicole Gutierrez [facility] Verified Date/Time: 05/08/2019 18:57:38 CBC W/PLT COUNT & AUTO [id number] 18:41:00 Test Item Value Reference Range Comments WHITE BLOOD CELL COUNT (BEAKER) (test qsuc=748) 7.3 K/ L 3.5-10.5 RED BLOOD CELL COUNT (BEAKER) (test vrvn=896) 3.89 M/ L 4.63-6.08 HEMOGLOBIN (BEAKER) (test qmbo=016) 11.6 GM/DL 13.7-17.5 HEMATOCRIT (BEAKER) (test hcrr=708) 36.1 % 40.1-51.0 MEAN CORPUSCULAR VOLUME (BEAKER) (test ommw=021) 92.8 fL 79.0-92.2 MEAN CORPUSCULAR HEMOGLOBIN (BEAKER) (test 29.8 pg 25.7-32.2 wrix=362) MEAN CORPUSCULAR HEMOGLOBIN CONC (BEAKER) (test 32.1 GM/DL 32.3-36.5 plky=312) RED CELL DISTRIBUTION WIDTH (BEAKER) (test 13.5 % 11.6-14.4 gjds=248) PLATELET COUNT (BEAKER) (test rmxk=746) 125 K/CU MM 150-450 MEAN PLATELET VOLUME (BEAKER) (test hjwm=331) 10.0 fL 9.4-12.4 NUCLEATED RED BLOOD CELLS (BEAKER) (test 0 /100 WBC 0-0 zavl=438) NEUTROPHILS RELATIVE PERCENT (BEAKER) (test 59 % moho=646) LYMPHOCYTES RELATIVE PERCENT (BEAKER) (test 27 % eevx=459) MONOCYTES RELATIVE PERCENT (BEAKER) (test 9 % ipvj=543) EOSINOPHILS RELATIVE PERCENT (BEAKER) (test 4 % vqox=000) BASOPHILS RELATIVE PERCENT (BEAKER) (test 1 % qqga=452) NEUTROPHILS ABSOLUTE COUNT (BEAKER) (test 4.28 K/ L 1.78-5.38 ntno=245) LYMPHOCYTES ABSOLUTE COUNT (BEAKER) (test 1.94 K/ L 1.32-3.57 bkwy=258) MONOCYTES ABSOLUTE COUNT (BEAKER) (test 0.67 K/ L 0.30-0.82 dijz=357) EOSINOPHILS ABSOLUTE COUNT (BEAKER) (test 0.29 K/ L 0.04-0.54 gtzf=301) BASOPHILS ABSOLUTE COUNT (BEAKER) (test 0.09 K/ L 0.01-0.08 ucdh=436) IMMATURE GRANULOCYTES-RELATIVE PERCENT (BEAKER) 0 % 0-1 (test tybf=1645) [id number] 06:29:00 Test Item Value Reference Range Comments POTASSIUM (BEAKER) (test 3.8 meq/L 3.5-5.1 Specimen slightly hemolyzed aasg=043) BASIC METABOLIC [id number] 06:24:00 Test Item Value Reference Range Comments SODIUM (BEAKER) (test 140 meq/L 136-145 cdwu=365) POTASSIUM (BEAKER) (test 3.4 meq/L 3.5-5.1 nnkq=365) CHLORIDE (BEAKER) (test 105 meq/L 98-107 gslw=257) CO2 (BEAKER) (test 26 meq/L 22-29 ygih=536) BLOOD UREA NITROGEN 21 mg/dL 7-21 (BEAKER) (test cyfb=450) CREATININE (BEAKER) (test 1.23 mg/dL 0.57-1.25 ckyp=376) GLUCOSE RANDOM (BEAKER) 93 mg/dL 70-105 (test xevu=367) CALCIUM (BEAKER) (test 9.2 mg/dL 8.4-10.2 xovb=906) EGFR (BEAKER) (test 62 mL/min/1.73 sq m ESTIMATED GFR IS NOT bgcv=4837) ACCURATE CREATININE CLEARANCE IN PREDICTING GLOMERULAR FILTRATION RATE. ESTIMATED GFR IS NOT APPLICABLE FOR DIALYSIS PATIENTS. CBC W/PLT COUNT & AUTO [id number] 05:59:00 Test Item Value Reference Range Comments WHITE BLOOD CELL COUNT (BEAKER) (test soql=405) 7.3 K/ L 3.5-10.5 RED BLOOD CELL COUNT (BEAKER) (test jgtp=190) 4.13 M/ L 4.63-6.08 HEMOGLOBIN (BEAKER) (test nqek=026) 12.7 GM/DL 13.7-17.5 HEMATOCRIT (BEAKER) (test duaf=996) 36.7 % 40.1-51.0 MEAN CORPUSCULAR VOLUME (BEAKER) (test pfzi=526) 88.9 fL 79.0-92.2 MEAN CORPUSCULAR HEMOGLOBIN (BEAKER) (test 30.8 pg 25.7-32.2 dgcb=265) MEAN CORPUSCULAR HEMOGLOBIN CONC (BEAKER) (test 34.6 GM/DL 32.3-36.5 vqya=335) RED CELL DISTRIBUTION WIDTH (BEAKER) (test 13.3 % 11.6-14.4 ydcj=090) PLATELET COUNT (BEAKER) (test dssx=151) 195 K/CU MM 150-450 MEAN PLATELET VOLUME (BEAKER) (test irsn=241) 9.6 fL 9.4-12.4 NEUTROPHILS RELATIVE PERCENT (BEAKER) (test 54 % hmaj=421) LYMPHOCYTES RELATIVE PERCENT (BEAKER) (test 27 % fopp=542) MONOCYTES RELATIVE PERCENT (BEAKER) (test 13 % hfcx=510) EOSINOPHILS RELATIVE PERCENT (BEAKER) (test 6 % ezll=850) BASOPHILS RELATIVE PERCENT (BEAKER) (test 1 % xrpf=695) NEUTROPHILS ABSOLUTE COUNT (BEAKER) (test 3.93 K/ L 1.78-5.38 oclg=604) LYMPHOCYTES ABSOLUTE COUNT (BEAKER) (test 1.94 K/ L 1.32-3.57 ruyo=712) MONOCYTES ABSOLUTE COUNT (BEAKER) (test 0.91 K/ L 0.30-0.82 bmxb=712) EOSINOPHILS ABSOLUTE COUNT (BEAKER) (test 0.41 K/ L 0.04-0.54 jpfw=735) BASOPHILS ABSOLUTE COUNT (BEAKER) (test 0.08 K/ L 0.01-0.08 psdr=084) IMMATURE GRANULOCYTES-RELATIVE PERCENT (BEAKER) 0 % 0-1 (test hdth=2121) BASIC METABOLIC [id number] 06:02:00 Test Item Value Reference Range Comments SODIUM (BEAKER) (test 140 meq/L 136-145 iwdb=931) POTASSIUM (BEAKER) (test 3.8 meq/L 3.5-5.1 Specimen slightly izrp=256) hemolyzed CHLORIDE (BEAKER) (test 102 meq/L 98-107 gatu=956) CO2 (BEAKER) (test 28 meq/L 22-29 drom=602) BLOOD UREA NITROGEN 21 mg/dL 7-21 (BEAKER) (test qolr=920) CREATININE (BEAKER) (test 1.25 mg/dL 0.57-1.25 Specimen slightly ifpk=630) hemolyzed GLUCOSE RANDOM (BEAKER) 82 mg/dL 70-105 (test wfov=349) CALCIUM (BEAKER) (test 8.9 mg/dL 8.4-10.2 sefp=947) EGFR (BEAKER) (test 61 mL/min/1.73 sq m ESTIMATED GFR IS NOT muda=5660) ACCURATE CREATININE CLEARANCE IN PREDICTING GLOMERULAR FILTRATION RATE. ESTIMATED GFR IS NOT APPLICABLE FOR DIALYSIS PATIENTS. CBC W/PLT COUNT & AUTO [id number] 05:44:00 Test Item Value Reference Range Comments WHITE BLOOD CELL COUNT (BEAKER) (test vqog=062) 10.2 K/ L 3.5-10.5 RED BLOOD CELL COUNT (BEAKER) (test xtdu=949) 4.23 M/ L 4.63-6.08 HEMOGLOBIN (BEAKER) (test qwio=686) 13.0 GM/DL 13.7-17.5 HEMATOCRIT (BEAKER) (test szia=593) 38.2 % 40.1-51.0 MEAN CORPUSCULAR VOLUME (BEAKER) (test gzcm=253) 90.3 fL 79.0-92.2 MEAN CORPUSCULAR HEMOGLOBIN (BEAKER) (test 30.7 pg 25.7-32.2 ngis=847) MEAN CORPUSCULAR HEMOGLOBIN CONC (BEAKER) (test 34.0 GM/DL 32.3-36.5 nwkt=789) RED CELL DISTRIBUTION WIDTH (BEAKER) (test 13.3 % 11.6-14.4 knun=681) PLATELET COUNT (BEAKER) (test qjuv=385) 220 K/CU MM 150-450 MEAN PLATELET VOLUME (BEAKER) (test hret=586) 10.0 fL 9.4-12.4 NEUTROPHILS RELATIVE PERCENT (BEAKER) (test 66 % yqnm=941) LYMPHOCYTES RELATIVE PERCENT (BEAKER) (test 18 % jxbv=108) MONOCYTES RELATIVE PERCENT (BEAKER) (test 12 % mtgo=519) EOSINOPHILS RELATIVE PERCENT (BEAKER) (test 3 % rhzu=694) BASOPHILS RELATIVE PERCENT (BEAKER) (test 1 % sncw=692) NEUTROPHILS ABSOLUTE COUNT (BEAKER) (test 6.77 K/ L 1.78-5.38 ecbo=821) LYMPHOCYTES ABSOLUTE COUNT (BEAKER) (test 1.88 K/ L 1.32-3.57 jlrt=513) MONOCYTES ABSOLUTE COUNT (BEAKER) (test 1.21 K/ L 0.30-0.82 mdmr=264) EOSINOPHILS ABSOLUTE COUNT (BEAKER) (test 0.30 K/ L 0.04-0.54 znti=379) BASOPHILS ABSOLUTE COUNT (BEAKER) (test 0.06 K/ L 0.01-0.08 glwg=533) IMMATURE GRANULOCYTES-RELATIVE PERCENT (BEAKER) 0 % 0-1 (test ccai=2416) URINALYSIS W/ REFLEX URINE [id number] 14:59:00 Test Item Value Reference Range Comments COLOR (BEAKER) (test akym=029) Yellow CLARITY (BEAKER) (test oexd=745) Slightly Cloudy SPECIFIC GRAVITY UA (BEAKER) (test nnqg=403) 1.015 1.005-1.030 PH UA (BEAKER) (test hext=292) 6.0 5.0-9.0 PROTEIN UA (BEAKER) (test hvhi=807) 30 mg/dL Negative GLUCOSE UA (BEAKER) (test dyvj=532) Negative Negative KETONES UA (BEAKER) (test dxsh=337) Negative Negative BILIRUBIN UA (BEAKER) (test myjh=056) Negative Negative BLOOD UA (BEAKER) (test jlcg=743) Large Negative NITRITE UA (BEAKER) (test jxab=700) Negative Negative LEUKOCYTE ESTERASE UA (BEAKER) (test Large Negative frpz=975) UROBILINOGEN UA (BEAKER) (test rsyz=011) 0.2 mg/dL 0.2-1.0 BACTERIA (BEAKER) (test fjre=800) Many RBC UA-MANUAL (BEAKER) (test kwqo=1151) 20-50 /HPF WBC UA-MANUAL (BEAKER) (test huzp=1660) >100 /HPF SQUAMOUS EPITHELIAL MANUAL (BEAKER) (test <5 /HPF rvex=8447) SOURCE(BEAKER) (test kpqs=9650) BASIC METABOLIC [id number] 05:28:00 Test Item Value Reference Range Comments SODIUM (BEAKER) (test 140 meq/L 136-145 vkvh=664) POTASSIUM (BEAKER) (test 3.8 meq/L 3.5-5.1 Specimen slightly mljn=407) hemolyzed CHLORIDE (BEAKER) (test 103 meq/L 98-107 swqo=657) CO2 (BEAKER) (test 30 meq/L 22-29 ifzq=841) BLOOD UREA NITROGEN 27 mg/dL 7-21 (BEAKER) (test agqb=933) CREATININE (BEAKER) (test 1.36 mg/dL 0.57-1.25 Specimen slightly qjds=926) hemolyzed GLUCOSE RANDOM (BEAKER) 96 mg/dL 70-105 (test kaec=817) CALCIUM (BEAKER) (test 9.2 mg/dL 8.4-10.2 gboc=345) EGFR (BEAKER) (test 55 mL/min/1.73 sq m ESTIMATED GFR IS NOT zzhx=0158) ACCURATE CREATININE CLEARANCE IN PREDICTING GLOMERULAR FILTRATION RATE. ESTIMATED GFR IS NOT APPLICABLE FOR DIALYSIS PATIENTS. Specimen slightly ictericCBC W/PLT COUNT & AUTO [id number] 05:05 :00 Test Item Value Reference Range Comments WHITE BLOOD CELL COUNT (BEAKER) (test dzzt=873) 9.9 K/ L 3.5-10.5 RED BLOOD CELL COUNT (BEAKER) (test uxgc=753) 4.09 M/ L 4.63-6.08 HEMOGLOBIN (BEAKER) (test imsr=221) 12.4 GM/DL 13.7-17.5 HEMATOCRIT (BEAKER) (test dmfv=070) 36.9 % 40.1-51.0 MEAN CORPUSCULAR VOLUME (BEAKER) (test jhuv=612) 90.2 fL 79.0-92.2 MEAN CORPUSCULAR HEMOGLOBIN (BEAKER) (test 30.3 pg 25.7-32.2 xnve=021) MEAN CORPUSCULAR HEMOGLOBIN CONC (BEAKER) (test 33.6 GM/DL 32.3-36.5 ukbq=105) RED CELL DISTRIBUTION WIDTH (BEAKER) (test 13.0 % 11.6-14.4 ggft=431) PLATELET COUNT (BEAKER) (test fago=405) 218 K/CU MM 150-450 MEAN PLATELET VOLUME (BEAKER) (test bfzh=777) 9.4 fL 9.4-12.4 NEUTROPHILS RELATIVE PERCENT (BEAKER) (test 64 % hnig=465) LYMPHOCYTES RELATIVE PERCENT (BEAKER) (test 21 % rjta=235) MONOCYTES RELATIVE PERCENT (BEAKER) (test 9 % lifz=106) EOSINOPHILS RELATIVE PERCENT (BEAKER) (test 4 % hvst=943) BASOPHILS RELATIVE PERCENT (BEAKER) (test 1 % isle=721) NEUTROPHILS ABSOLUTE COUNT (BEAKER) (test 6.38 K/ L 1.78-5.38 oogu=922) LYMPHOCYTES ABSOLUTE COUNT (BEAKER) (test 2.09 K/ L 1.32-3.57 guoa=164) MONOCYTES ABSOLUTE COUNT (BEAKER) (test 0.93 K/ L 0.30-0.82 ztxr=078) EOSINOPHILS ABSOLUTE COUNT (BEAKER) (test 0.43 K/ L 0.04-0.54 ajrd=583) BASOPHILS ABSOLUTE COUNT (BEAKER) (test 0.08 K/ L 0.01-0.08 vezq=362) IMMATURE GRANULOCYTES-RELATIVE PERCENT (BEAKER) 0 % 0-1 (test cfhs=0080) URINALYSIS [id number] 13:39:00 Test Item Value Reference Range Comments RBC UA (BEAKER) (test elmz=627) 20 /HPF WBC UA (BEAKER) (test sfut=064) > /HPF BACTERIA (BEAKER) (test dxkm=547) Many SQUAMOUS EPITHELIAL (BEAKER) (test oizh=479) < /HPF URINALYSIS WITH MICROSCOPIC IF [id number] 13:39:00 Test Item Value Reference Range Comments COLOR (BEAKER) (test dbqm=331) Yellow CLARITY (BEAKER) (test vmmv=441) Cloudy SPECIFIC GRAVITY UA (BEAKER) (test ciky=536) 1.015 1.005-1.030 PH UA (BEAKER) (test qoot=259) 6.5 5.0-9.0 PROTEIN UA (BEAKER) (test ovhq=598) 100 mg/dL Negative GLUCOSE UA (BEAKER) (test xude=249) Negative Negative KETONES UA (BEAKER) (test zbgh=905) Negative Negative BILIRUBIN UA (BEAKER) (test ymsa=170) Negative Negative BLOOD UA (BEAKER) (test xnou=651) Large Negative NITRITE UA (BEAKER) (test jdjm=340) Negative Negative LEUKOCYTE ESTERASE UA (BEAKER) (test guxu=444) Moderate Negative UROBILINOGEN UA (BEAKER) (test sgly=269) 0.2 mg/dL 0.2-1.0 SOURCE(BEAKER) (test dnbr=8910) RAD, ABDOMEN/KUB, 1 VIEW [id number] 22:26:00Reason for exam:->back pain, constipationShould this be [...] Mccurdy MDReport Verified Date/Time:02/24/2019 22:26:00 Reading Location: [address] Reading Room Electronically signed by: DANNY MCCURDY M.D. on 10:26 [facility] [id number] 06:16:00 Test Item Value Reference Range Comments TOTAL PROTEIN (BEAKER) 6.4 gm/dL 6.0-8.3 (test gvcb=757) ALBUMIN (BEAKER) (test 4.0 g/dL 3.5-5.0 dhmf=7460) ALKALINE PHOSPHATASE 110 U/L 40-150 (BEAKER) (test fyxb=510) BILIRUBIN TOTAL (BEAKER) 1.4 mg/dL 0.2-1.2 (test fobp=569) SODIUM (BEAKER) (test 142 meq/L 136-145 dlzo=668) POTASSIUM (BEAKER) (test 3.6 meq/L 3.5-5.1 ynpp=119) CHLORIDE (BEAKER) (test 104 meq/L 98-107 awjo=959) CO2 (BEAKER) (test 29 meq/L 22-29 cjkq=645) BLOOD UREA NITROGEN 14 mg/dL 7-21 (BEAKER) (test uarh=670) CREATININE (BEAKER) (test 1.11 mg/dL 0.57-1.25 aymk=574) GLUCOSE RANDOM (BEAKER) 86 mg/dL 70-105 (test yfkw=664) CALCIUM (BEAKER) (test 8.7 mg/dL 8.4-10.2 xumz=614) AST (SGOT) (BEAKER) (test 47 U/L 5-34 ydcc=759) ALT (SGPT) (BEAKER) (test 35 U/L 6-55 qdos=940) EGFR (BEAKER) (test 70 mL/min/1.73 sq m ESTIMATED GFR IS NOT qmzb=3637) ACCURATE CREATININE CLEARANCE IN PREDICTING GLOMERULAR FILTRATION RATE. ESTIMATED GFR IS NOT APPLICABLE FOR DIALYSIS PATIENTS. CBC W/PLT COUNT & AUTO [id number] 05:59:00 Test Item Value Reference Range Comments WHITE BLOOD CELL COUNT (BEAKER) (test wcdj=834) 6.1 K/ L 3.5-10.5 RED BLOOD CELL COUNT (BEAKER) (test jwla=591) 4.04 M/ L 4.63-6.08 HEMOGLOBIN (BEAKER) (test naji=708) 12.2 GM/DL 13.7-17.5 HEMATOCRIT (BEAKER) (test zing=519) 36.2 % 40.1-51.0 MEAN CORPUSCULAR VOLUME (BEAKER) (test ljas=972) 89.6 fL 79.0-92.2 MEAN CORPUSCULAR HEMOGLOBIN (BEAKER) (test 30.2 pg 25.7-32.2 ghai=078) MEAN CORPUSCULAR HEMOGLOBIN CONC (BEAKER) (test 33.7 GM/DL 32.3-36.5 tqnr=317) RED CELL DISTRIBUTION WIDTH (BEAKER) (test 12.6 % 11.6-14.4 gysg=871) PLATELET COUNT (BEAKER) (test vnfq=160) 182 K/CU MM 150-450 MEAN PLATELET VOLUME (BEAKER) (test ftcp=231) 9.8 fL 9.4-12.4 NEUTROPHILS RELATIVE PERCENT (BEAKER) (test 51 % zizk=403) LYMPHOCYTES RELATIVE PERCENT (BEAKER) (test 33 % yvan=572) MONOCYTES RELATIVE PERCENT (BEAKER) (test 9 % fvmc=471) EOSINOPHILS RELATIVE PERCENT (BEAKER) (test 6 % xxbd=455) BASOPHILS RELATIVE PERCENT (BEAKER) (test 1 % hkku=536) NEUTROPHILS ABSOLUTE COUNT (BEAKER) (test 3.08 K/ L 1.78-5.38 zjol=965) LYMPHOCYTES ABSOLUTE COUNT (BEAKER) (test 1.98 K/ L 1.32-3.57 wtym=232) MONOCYTES ABSOLUTE COUNT (BEAKER) (test 0.55 K/ L 0.30-0.82 ikro=925) EOSINOPHILS ABSOLUTE COUNT (BEAKER) (test 0.35 K/ L 0.04-0.54 ydlt=209) BASOPHILS ABSOLUTE COUNT (BEAKER) (test 0.07 K/ L 0.01-0.08 svci=317) IMMATURE GRANULOCYTES-RELATIVE PERCENT (BEAKER) 0 % 0-1 (test syyj=7342) [id number] 06:58:00 Test Item Value Reference Range Comments PHOSPHORUS (BEAKER) (test cifu=728) 4.1 mg/dL 2.3-4.7 [id number] 06:58:00 Test Item Value Reference Range Comments MAGNESIUM (BEAKER) (test wurv=414) 2.1 mg/dL 1.6-2.6 BASIC METABOLIC [id number] 06:58:00 Test Item Value Reference Range Comments SODIUM (BEAKER) (test 140 meq/L 136-145 pysz=623) POTASSIUM (BEAKER) (test 3.8 meq/L 3.5-5.1 xbpe=721) CHLORIDE (BEAKER) (test 105 meq/L 98-107 mjrz=865) CO2 (BEAKER) (test 25 meq/L 22-29 gyix=064) BLOOD UREA NITROGEN 19 mg/dL 7-21 (BEAKER) (test krqf=981) CREATININE (BEAKER) (test 1.09 mg/dL 0.57-1.25 ppmj=963) GLUCOSE RANDOM (BEAKER) 90 mg/dL 70-105 (test zncf=193) CALCIUM (BEAKER) (test 8.9 mg/dL 8.4-10.2 wria=719) EGFR (BEAKER) (test 71 mL/min/1.73 sq m ESTIMATED GFR IS NOT kbfu=0172) ACCURATE CREATININE CLEARANCE IN PREDICTING GLOMERULAR FILTRATION RATE. ESTIMATED GFR IS NOT APPLICABLE FOR DIALYSIS PATIENTS. CBC W/PLT COUNT & AUTO [id number] 05:37:00 Test Item Value Reference Range Comments WHITE BLOOD CELL COUNT (BEAKER) (test nkqs=549) 5.7 K/ L 3.5-10.5 RED BLOOD CELL COUNT (BEAKER) (test vmyr=102) 3.87 M/ L 4.63-6.08 HEMOGLOBIN (BEAKER) (test iqio=606) 11.6 GM/DL 13.7-17.5 HEMATOCRIT (BEAKER) (test raen=563) 35.4 % 40.1-51.0 MEAN CORPUSCULAR VOLUME (BEAKER) (test wmcf=390) 91.5 fL 79.0-92.2 MEAN CORPUSCULAR HEMOGLOBIN (BEAKER) (test 30.0 pg 25.7-32.2 sevv=072) MEAN CORPUSCULAR HEMOGLOBIN CONC (BEAKER) (test 32.8 GM/DL 32.3-36.5 flis=568) RED CELL DISTRIBUTION WIDTH (BEAKER) (test 12.8 % 11.6-14.4 ykqn=503) PLATELET COUNT (BEAKER) (test fnbc=722) 150 K/CU MM 150-450 MEAN PLATELET VOLUME (BEAKER) (test aibw=784) 10.3 fL 9.4-12.4 NUCLEATED RED BLOOD CELLS (BEAKER) (test 0 /100 WBC 0-0 ttia=614) NEUTROPHILS RELATIVE PERCENT (BEAKER) (test 51 % fgrw=825) LYMPHOCYTES RELATIVE PERCENT (BEAKER) (test 32 % myzf=876) MONOCYTES RELATIVE PERCENT (BEAKER) (test 10 % wlda=559) EOSINOPHILS RELATIVE PERCENT (BEAKER) (test 6 % hsgj=501) BASOPHILS RELATIVE PERCENT (BEAKER) (test 1 % xbip=740) NEUTROPHILS ABSOLUTE COUNT (BEAKER) (test 2.90 K/ L 1.78-5.38 jsts=115) LYMPHOCYTES ABSOLUTE COUNT (BEAKER) (test 1.85 K/ L 1.32-3.57 kfds=731) MONOCYTES ABSOLUTE COUNT (BEAKER) (test 0.56 K/ L 0.30-0.82 qxzg=303) EOSINOPHILS ABSOLUTE COUNT (BEAKER) (test 0.35 K/ L 0.04-0.54 mjvh=783) BASOPHILS ABSOLUTE COUNT (BEAKER) (test 0.05 K/ L 0.01-0.08 yugd=053) IMMATURE GRANULOCYTES-RELATIVE PERCENT (BEAKER) 0 % 0-1 (test nyqz=7063) BLOOD [id number] 08:01:00 Test Item Value Reference Range Comments CULTURE (BEAKER) (test nncc=0021) No growth in 5 days BLOOD [id number] 08:01:00 Test Item Value Reference Range Comments CULTURE (BEAKER) (test mspr=6864) No growth in 5 days [id number] 05:17:00 Test Item Value Reference Range Comments PHOSPHORUS (BEAKER) (test uxxn=976) 4.4 mg/dL 2.3-4.7 [id number] 05:17:00 Test Item Value Reference Range Comments MAGNESIUM (BEAKER) (test fvar=518) 2.0 mg/dL 1.6-2.6 BASIC METABOLIC [id number] 05:17:00 Test Item Value Reference Range Comments SODIUM (BEAKER) (test 141 meq/L 136-145 aqjt=329) POTASSIUM (BEAKER) (test 3.5 meq/L 3.5-5.1 nfdd=337) CHLORIDE (BEAKER) (test 105 meq/L 98-107 fvdj=983) CO2 (BEAKER) (test 30 meq/L 22-29 xdel=928) BLOOD UREA NITROGEN 18 mg/dL 7-21 (BEAKER) (test zzds=579) CREATININE (BEAKER) (test 0.98 mg/dL 0.57-1.25 dggv=631) GLUCOSE RANDOM (BEAKER) 97 mg/dL 70-105 (test ezce=302) CALCIUM (BEAKER) (test 8.9 mg/dL 8.4-10.2 nlsu=327) EGFR (BEAKER) (test 80 mL/min/1.73 sq m ESTIMATED GFR IS NOT dwbm=2746) ACCURATE CREATININE CLEARANCE IN PREDICTING GLOMERULAR FILTRATION RATE. ESTIMATED GFR IS NOT APPLICABLE FOR DIALYSIS PATIENTS. CBC W/PLT COUNT & AUTO [id number] 04:43:00 Test Item Value Reference Range Comments WHITE BLOOD CELL COUNT (BEAKER) (test qlsp=888) 5.0 K/ L 3.5-10.5 RED BLOOD CELL COUNT (BEAKER) (test heaz=863) 3.84 M/ L 4.63-6.08 HEMOGLOBIN (BEAKER) (test izjt=403) 11.6 GM/DL 13.7-17.5 HEMATOCRIT (BEAKER) (test ujvg=424) 33.8 % 40.1-51.0 MEAN CORPUSCULAR VOLUME (BEAKER) (test zumc=512) 88.0 fL 79.0-92.2 MEAN CORPUSCULAR HEMOGLOBIN (BEAKER) (test 30.2 pg 25.7-32.2 khbv=236) MEAN CORPUSCULAR HEMOGLOBIN CONC (BEAKER) (test 34.3 GM/DL 32.3-36.5 pioa=090) RED CELL DISTRIBUTION WIDTH (BEAKER) (test 12.6 % 11.6-14.4 uayq=476) PLATELET COUNT (BEAKER) (test qajf=654) 131 K/CU MM 150-450 MEAN PLATELET VOLUME (BEAKER) (test ysfv=428) 10.2 fL 9.4-12.4 NUCLEATED RED BLOOD CELLS (BEAKER) (test 0 /100 WBC 0-0 cpuh=731) NEUTROPHILS RELATIVE PERCENT (BEAKER) (test 45 % gzig=327) LYMPHOCYTES RELATIVE PERCENT (BEAKER) (test 39 % zimz=380) MONOCYTES RELATIVE PERCENT (BEAKER) (test 9 % woqo=597) EOSINOPHILS RELATIVE PERCENT (BEAKER) (test 7 % guvz=921) BASOPHILS RELATIVE PERCENT (BEAKER) (test 1 % qljv=495) NEUTROPHILS ABSOLUTE COUNT (BEAKER) (test 2.26 K/ L 1.78-5.38 afxe=388) LYMPHOCYTES ABSOLUTE COUNT (BEAKER) (test 1.94 K/ L 1.32-3.57 kylt=711) MONOCYTES ABSOLUTE COUNT (BEAKER) (test 0.46 K/ L 0.30-0.82 negi=645) EOSINOPHILS ABSOLUTE COUNT (BEAKER) (test 0.33 K/ L 0.04-0.54 tpgv=334) BASOPHILS ABSOLUTE COUNT (BEAKER) (test 0.04 K/ L 0.01-0.08 ixad=750) IMMATURE GRANULOCYTES-RELATIVE PERCENT (BEAKER) 0 % 0-1 (test oxot=5311) NV, ANGIOGRAM, [id number] 13:20:00Reason for exam:->CEREBROVASCULAR ACCIDENTFINAL REPORT DATE: 02/14/2019 SURGEON: Adina Khan M.D. MEDICAL STAFFING COORDINATOR: Ruchi Pacheco M.D. PREOPERATIVE DIAGNOSIS: Right MCA [...] femoral artery was performed and a 8 [place] short sheath was inserted and placed on heparinized flush. An 8 [place] Infinity long sheath was advanced into the [...] and a triaxial system comprising an 8 [place] Infinity guide catheter, an Catalyst 7 distal [...] in the same location. This time a [id number] x 30mm stent retriever was positioned across [...] findings. The catheters were removed. The 8 [place] sheath was removed. Hemostasis was achieved with [...] MDReport Verified Date/Time: 02/19/2019 13:20:54 Reading Location: [facility] Y026 Neuro Angio Reading Room [id number] 08:50:00 Test Item Value Reference Range Comments PHOSPHORUS (BEAKER) (test wxds=482) 3.9 mg/dL 2.3-4.7 [id number] 08:50:00 Test Item Value Reference Range Comments MAGNESIUM (BEAKER) (test mfiq=779) 2.1 mg/dL 1.6-2.6 BASIC METABOLIC [id number] 08:50:00 Test Item Value Reference Range Comments SODIUM (BEAKER) (test 137 meq/L 136-145 urem=877) POTASSIUM (BEAKER) (test 3.8 meq/L 3.5-5.1 dlph=143) CHLORIDE (BEAKER) (test 102 meq/L 98-107 ykdq=852) CO2 (BEAKER) (test 24 meq/L 22-29 swry=273) BLOOD UREA NITROGEN 15 mg/dL 7-21 (BEAKER) (test huof=261) CREATININE (BEAKER) (test 0.98 mg/dL 0.57-1.25 jxct=384) GLUCOSE RANDOM (BEAKER) 95 mg/dL 70-105 (test asgu=206) CALCIUM (BEAKER) (test 9.0 mg/dL 8.4-10.2 upkl=813) EGFR (BEAKER) (test 80 mL/min/1.73 sq m ESTIMATED GFR IS NOT odic=7981) ACCURATE CREATININE CLEARANCE IN PREDICTING GLOMERULAR FILTRATION RATE. ESTIMATED GFR IS NOT APPLICABLE FOR DIALYSIS PATIENTS. CBC W/PLT COUNT & AUTO [id number] 08:10:00 Test Item Value Reference Range Comments WHITE BLOOD CELL COUNT 4.2 K/ L 3.5-10.5 (BEAKER) (test jkly=689) RED BLOOD CELL COUNT (BEAKER) 4.11 M/ L 4.63-6.08 (test fxas=246) HEMOGLOBIN (BEAKER) (test 12.4 GM/DL 13.7-17.5 urrm=501) HEMATOCRIT (BEAKER) (test 35.8 % 40.1-51.0 fmvq=572) MEAN CORPUSCULAR VOLUME 87.1 fL 79.0-92.2 Discordant result compares (BEAKER) (test jpku=221) with previous; clinical correlation requires. MEAN CORPUSCULAR HEMOGLOBIN 30.2 pg 25.7-32.2 (BEAKER) (test lgxn=215) MEAN CORPUSCULAR HEMOGLOBIN 34.6 GM/DL 32.3-36.5 CONC (BEAKER) (test mfzt=890) RED CELL DISTRIBUTION WIDTH 12.4 % 11.6-14.4 (BEAKER) (test rfjx=210) PLATELET COUNT (BEAKER) (test 104 K/CU MM 150-450 scdg=958) MEAN PLATELET VOLUME (BEAKER) 10.2 fL 9.4-12.4 (test jwhn=158) NUCLEATED RED BLOOD CELLS 0 /100 WBC 0-0 (BEAKER) (test xswf=711) NEUTROPHILS RELATIVE PERCENT 48 % (BEAKER) (test yxxw=210) LYMPHOCYTES RELATIVE PERCENT 34 % (BEAKER) (test jihv=599) MONOCYTES RELATIVE PERCENT 10 % (BEAKER) (test pxdg=611) EOSINOPHILS RELATIVE PERCENT 7 % (BEAKER) (test qfxp=925) BASOPHILS RELATIVE PERCENT 1 % (BEAKER) (test ghyb=393) NEUTROPHILS ABSOLUTE COUNT 2.03 K/ L 1.78-5.38 (BEAKER) (test rxck=211) LYMPHOCYTES ABSOLUTE COUNT 1.45 K/ L 1.32-3.57 (BEAKER) (test kxob=911) MONOCYTES ABSOLUTE COUNT 0.43 K/ L 0.30-0.82 (BEAKER) (test rnum=245) EOSINOPHILS ABSOLUTE COUNT 0.28 K/ L 0.04-0.54 (BEAKER) (test eemz=290) BASOPHILS ABSOLUTE COUNT 0.04 K/ L 0.01-0.08 (BEAKER) (test ieck=714) IMMATURE 0 % 0-1 GRANULOCYTES-RELATIVE PERCENT (BEAKER) (test fsxi=8425) CT, CHEST, WITH [id number] 09:37:00FINAL REPORT CT Chest, abdomen, and pelvis [...] MDReport Verified Date/Time: 2018 09:37:19 Reading Location: [facility] C013X Ortho Consult Reading Room CT, [id number] 09:37:00FINAL REPORT CT Chest, abdomen , and [...] MDReport Verified Date/Time: 02/18/2019 09:37:19 Reading Location: [facility] C013X Ortho Consult Reading Room POCT-GLUCOSE [id number] 12:31:00 Test Item Value Reference Range Comments POC-GLUCOSE METER (BEAKER) 94 mg/dL 70-110 TESTED AT [place] [id number] [facility] (test ilkh=0082) [facility] [address] POCT-GLUCOSE [id number] 06:34:00 Test Item Value Reference Range Comments POC-GLUCOSE METER (BEAKER) 94 mg/dL 70-110 TESTED AT [address] (test ybki=5042) [facility] [address] [id number] 06:10:00 Test Item Value Reference Range Comments PHOSPHORUS (BEAKER) (test yhvc=637) 2.5 mg/dL 2.3-4.7 [id number] 06:10:00 Test Item Value Reference Range Comments MAGNESIUM (BEAKER) (test xulp=944) 2.0 mg/dL 1.6-2.6 BASIC METABOLIC [id number] 06:10:00 Test Item Value Reference Range Comments SODIUM (BEAKER) (test 139 meq/L 136-145 kmdu=065) POTASSIUM (BEAKER) (test 4.0 meq/L 3.5-5.1 xlnd=075) CHLORIDE (BEAKER) (test 109 meq/L 98-107 bakb=402) CO2 (BEAKER) (test 23 meq/L 22-29 waap=767) BLOOD UREA NITROGEN 15 mg/dL 7-21 (BEAKER) (test wtag=514) CREATININE (BEAKER) (test 0.89 mg/dL 0.57-1.25 oacn=587) GLUCOSE RANDOM (BEAKER) 93 mg/dL 70-105 (test zrwr=600) CALCIUM (BEAKER) (test 8.1 mg/dL 8.4-10.2 tdpg=732) EGFR (BEAKER) (test 90 mL/min/1.73 sq m ESTIMATED GFR IS NOT qzpz=5928) ACCURATE CREATININE CLEARANCE IN PREDICTING GLOMERULAR FILTRATION RATE. ESTIMATED GFR IS NOT APPLICABLE FOR DIALYSIS PATIENTS. TROPONIN [id number] 05:43:00 Test Item Value Reference Range Comments TROPONIN I (BEAKER) (test ixjt=638) 0.09 ng/mL 0.00-0.03 Troponin I (TnI) levels [...] acute neurological disease, and persistent tachyarrhythmia.LACTIC ACID, [id number] 05:24:00 Test Item Value Reference Range Comments LACTATE BLOOD VENOUS (2) (BEAKER) (test 0.5 mmol/L 0.5-2.2 wqgj=9835) CBC W/PLT COUNT & AUTO [id number] 04:16:00 Test Item Value Reference Range Comments WHITE BLOOD CELL COUNT (BEAKER) (test crsg=472) 5.5 K/ L 3.5-10.5 RED BLOOD CELL COUNT (BEAKER) (test gmmh=942) 3.28 M/ L 4.63-6.08 HEMOGLOBIN (BEAKER) (test mveg=513) 10.0 GM/DL 13.7-17.5 HEMATOCRIT (BEAKER) (test rvfr=680) 30.0 % 40.1-51.0 MEAN CORPUSCULAR VOLUME (BEAKER) (test fbio=436) 91.5 fL 79.0-92.2 MEAN CORPUSCULAR HEMOGLOBIN (BEAKER) (test 30.5 pg 25.7-32.2 buhi=555) MEAN CORPUSCULAR HEMOGLOBIN CONC (BEAKER) (test 33.3 GM/DL 32.3-36.5 cnrd=559) RED CELL DISTRIBUTION WIDTH (BEAKER) (test 12.5 % 11.6-14.4 rsxh=671) PLATELET COUNT (BEAKER) (test aibh=488) 62 K/CU MM 150-450 MEAN PLATELET VOLUME (BEAKER) (test cyrn=990) 9.9 fL 9.4-12.4 NUCLEATED RED BLOOD CELLS (BEAKER) (test 0 /100 WBC 0-0 zfma=862) NEUTROPHILS RELATIVE PERCENT (BEAKER) (test 54 % fpaf=520) LYMPHOCYTES RELATIVE PERCENT (BEAKER) (test 26 % juyo=138) MONOCYTES RELATIVE PERCENT (BEAKER) (test 14 % taot=312) EOSINOPHILS RELATIVE PERCENT (BEAKER) (test 6 % gnun=094) BASOPHILS RELATIVE PERCENT (BEAKER) (test 1 % spjw=056) NEUTROPHILS ABSOLUTE COUNT (BEAKER) (test 2.99 K/ L 1.78-5.38 gybe=755) LYMPHOCYTES ABSOLUTE COUNT (BEAKER) (test 1.41 K/ L 1.32-3.57 qhpk=530) MONOCYTES ABSOLUTE COUNT (BEAKER) (test deyb=610) 0.74 K/ L 0.30-0.82 EOSINOPHILS ABSOLUTE COUNT (BEAKER) (test 0.32 K/ L 0.04-0.54 biml=589) BASOPHILS ABSOLUTE COUNT (BEAKER) (test fydu=571) 0.03 K/ L 0.01-0.08 IMMATURE GRANULOCYTES-RELATIVE PERCENT (BEAKER) 0 % 0-1 (test omzv=1064) POCT-GLUCOSE [id number] 00:26:00 Test Item Value Reference Range Comments POC-GLUCOSE METER (BEAKER) 101 mg/dL 70-110 TESTED AT [address] (test bjxv=2224) [place] [address] TROPONIN [id number] 18:22:00 Test Item Value Reference Range Comments TROPONIN I (BEAKER) (test fpos=285) 0.09 ng/mL 0.00-0.03 Troponin I (TnI) levels [...] failure, acidosis, acute neurological disease, and persistent tachyarrhythmia.[id number] 18:04:00 Test Item Value Reference Range Comments FIBRINOGEN LEVEL (BEAKER) (test bgwe=714) 359 mg/dl 225-434 POCT-GLUCOSE [id number] 17:25:00 Test Item Value Reference Range Comments POC-GLUCOSE METER (BEAKER) 83 mg/dL 70-110 TESTED AT [address] (test zrjv=4382) [place] [address] [id number] 16:12:00 Test Item Value Reference Range Comments MAGNESIUM (BEAKER) (test hvom=853) 2.2 mg/dL 1.6-2.6 PERIPHERAL BLOOD SMEAR - HOLD [id number] 14:21:00 Test Item Value Reference Range Comments PERIPHERAL SMEAR SAVE (BEAKER) (test wfgi=8084) saved TROPONIN [id number] 13:17:00 Test Item Value Reference Range Comments TROPONIN I (BEAKER) (test sgla=055) 0.09 ng/mL 0.00-0.03 Troponin I (TnI) levels [...] acidosis, acute neurological disease, and persistent tachyarrhythmia.POCT-GLUCOSE [id number] 12:04:00 Test Item Value Reference Range Comments POC-GLUCOSE METER (BEAKER) 134 mg/dL 70-110 TESTED AT [address] (test temf=1611) [facility] [address] RAD, CHEST, 1 VIEW, NON [id number] 11:06:00Reason for exam:->pulmonary congestionShould this be performed [...] Gutierrez VerifiedDate/Time: 02/16/2019 11:06 :29 Reading Location: [facility] Radiology Reading Room POCT-GLUCOSE [id number] 05:58:00 Test Item Value Reference Range Comments POC-GLUCOSE METER (BEAKER) 74 mg/dL 70-110 TESTED AT [facility] [address] (test aimw=2400) [facility] [address] VANCOMYCIN LEVEL, [id number] 04:01:00 Test Item Value Reference Range Comments VANCOMYCIN TROUGH (BEAKER) (test orwy=274) 10.9 ug/mL 10.0-20.0 [id number] 03:57:00 Test Item Value Reference Range Comments PHOSPHORUS (BEAKER) (test qzww=336) 1.9 mg/dL 2.3-4.7 [id number] 03:57:00 Test Item Value Reference Range Comments MAGNESIUM (BEAKER) (test pzny=393) 1.7 mg/dL 1.6-2.6 BASIC METABOLIC [id number] 03:57:00 Test Item Value Reference Range Comments SODIUM (BEAKER) (test 138 meq/L 136-145 haec=092) POTASSIUM (BEAKER) (test 3.9 meq/L 3.5-5.1 obzv=938) CHLORIDE (BEAKER) (test 108 meq/L 98-107 hmrn=569) CO2 (BEAKER) (test 22 meq/L 22-29 iaku=680) BLOOD UREA NITROGEN 17 mg/dL 7-21 (BEAKER) (test bddr=194) CREATININE (BEAKER) (test 1.06 mg/dL 0.57-1.25 gpoz=236) GLUCOSE RANDOM (BEAKER) 93 mg/dL 70-105 (test tppe=989) CALCIUM (BEAKER) (test 8.4 mg/dL 8.4-10.2 mxjo=238) EGFR (BEAKER) (test 73 mL/min/1.73 sq m ESTIMATED GFR IS NOT xtfm=6211) ACCURATE CREATININE CLEARANCE IN PREDICTING GLOMERULAR FILTRATION RATE. ESTIMATED GFR IS NOT APPLICABLE FOR DIALYSIS PATIENTS. CBC W/PLT COUNT & AUTO [id number] 03:56:00 Test Item Value Reference Range Comments WHITE BLOOD CELL COUNT (BEAKER) (test zejh=597) 6.2 K/ L 3.5-10.5 RED BLOOD CELL COUNT (BEAKER) (test hmpx=082) 3.25 M/ L 4.63-6.08 HEMOGLOBIN (BEAKER) (test rzgw=639) 10.0 GM/DL 13.7-17.5 HEMATOCRIT (BEAKER) (test jkvk=671) 29.7 % 40.1-51.0 MEAN CORPUSCULAR VOLUME (BEAKER) (test imac=691) 91.4 fL 79.0-92.2 MEAN CORPUSCULAR HEMOGLOBIN (BEAKER) (test 30.8 pg 25.7-32.2 sbfu=100) MEAN CORPUSCULAR HEMOGLOBIN CONC (BEAKER) (test 33.7 GM/DL 32.3-36.5 keaz=737) RED CELL DISTRIBUTION WIDTH (BEAKER) (test 12.5 % 11.6-14.4 smha=456) PLATELET COUNT (BEAKER) (test yjrn=918) 58 K/CU MM 150-450 MEAN PLATELET VOLUME (BEAKER) (test zkdf=797) 10.4 fL 9.4-12.4 NUCLEATED RED BLOOD CELLS (BEAKER) (test 0 /100 WBC 0-0 twcw=768) NEUTROPHILS RELATIVE PERCENT (BEAKER) (test 63 % bbpl=290) LYMPHOCYTES RELATIVE PERCENT (BEAKER) (test 18 % phat=348) MONOCYTES RELATIVE PERCENT (BEAKER) (test 17 % mfxp=664) EOSINOPHILS RELATIVE PERCENT (BEAKER) (test 2 % utnb=043) BASOPHILS RELATIVE PERCENT (BEAKER) (test 1 % ffyi=992) NEUTROPHILS ABSOLUTE COUNT (BEAKER) (test 3.88 K/ L 1.78-5.38 iulh=445) LYMPHOCYTES ABSOLUTE COUNT (BEAKER) (test 1.11 K/ L 1.32-3.57 fqpi=865) MONOCYTES ABSOLUTE COUNT (BEAKER) (test icmx=065) 1.03 K/ L 0.30-0.82 EOSINOPHILS ABSOLUTE COUNT (BEAKER) (test 0.09 K/ L 0.04-0.54 wqie=800) BASOPHILS ABSOLUTE COUNT (BEAKER) (test gioz=194) 0.04 K/ L 0.01-0.08 IMMATURE GRANULOCYTES-RELATIVE PERCENT (BEAKER) 0 % 0-1 (test xgrz=0750) LACTIC ACID, [id number] 03:26:00 Test Item Value Reference Range Comments LACTATE BLOOD VENOUS (2) (BEAKER) (test 0.7 mmol/L 0.5-2.2 xtpt=5447) TROPONIN [id number] 01:05:00 Test Item Value Reference Range Comments TROPONIN I (MARCIE) (test dlgi=571) 0.14 ng/mL 0.00-0.03 Troponin I (TnI) levels [...] completed or 30 min after intravenous potassium replacement.[id number] 01:01:00 Test Item Value Reference Range Comments POTASSIUM (BEAKER) (test stgv=648) 4.0 meq/L 3.5-5.1 Check Serum Potassium level 2 hours after oral potassium replacement completed or 30 min after intravenous potassium replacement.POCT-GLUCOSE [id number] 00:17:00 Test Item Value Reference Range Comments POC-GLUCOSE METER (JACQUELINEAKER) 105 mg/dL 70-110 TESTED AT [facility] [address] [facility] (test qfcd=7761) [facility] [address] MR, BRAIN, WITHOUT [id number] 19:38:00Reason for exam:-> CEREBROVASCULAR ACCIDENTFINAL REPORT MR, [...] the right. Punctate infarcts of the left [employer] and posterior circulation territory including the left [...] mass effect. Punctate infarcts of the left [employer] territory including the left occipital lobe and left cerebellar sphere. Signed: Gia Staton MDReport Verified Date/Time: 02/15/2019 19:38: 56 Reading Location: [facility] C013V Neuro Reading Room TROPONIN [id number] 19:30:00 Test Item Value Reference Range Comments TROPONIN I (BEAKER) (test jyau=633) 0.23 ng/mL 0.00-0.03 Troponin I (TnI) levels [...] completed or 30 min after intravenous potassium replacement.[id number] 19:11:00 Test Item Value Reference Range Comments POTASSIUM ([facility]) (test lfsy=966) 3.4 meq/L 3.5-5.1 Check Serum Potassium level 2 hours after oral potassium replacement completed or 30 min after intravenous potassium replacement.POCT-GLUCOSE [id number] 18:38:00 Test Item Value Reference Range Comments POC-GLUCOSE METER ([facility]) 108 mg/dL 70-110 TESTED AT [address] (test jgcx=7546) [facility] [address] PERIPHERAL BLOOD SMEAR - PATHOLOGIST [id number] 16:30:00 Test Item Value Reference Range Comments WBC MORPHOLOGY ([facility]) (test Toxic Granulation djwd=4922) PERIPHERAL SMR REVIEW ([facility]) Cell counts confirmed. (test kpjw=5493) [id number] ([facility]) Anna Goel M.D. (test ehaz=7628) (electronic signature) (MANUAL DIFFERENTIAL)2019-02-15 14:22:00 Test Item Value Reference Range Comments NEUTROPHILS - REL (DIFF) ([facility]) (test nkff=0636) 74 % LYMPHOCYTES - REL (DIFF) (BEAKER) (test phzw=0093) 11 % MONOCYTES - REL (DIFF) (BEAKER) (test wldl=1551) 13 % EOSINOPHILS - REL (DIFF) (BEAKER) (test cmvc=0417) 2 % NEUTROPHILS - ABS (DIFF) (BEAKER) (test hupo=3091) 5.03 K/ L 1.80-8.00 LYMPHOCYTES - ABS (DIFF) (BEAKER) (test imlu=2113) 0.75 K/ L 1.48-4.50 MONOCYTES - ABS (DIFF) (BEAKER) (test sxdx=1536) 0.88 K/ L 0.00-1.30 EOSINOPHILS - ABS (DIFF) (BEAKER) (test pnuz=0947) 0.14 K/ L 0.00-0.50 TOTAL COUNTED (BEAKER) (test twer=5609) 100 WBC MORPHOLOGY (BEAKER) (test vtvg=263) Normal PLT MORPHOLOGY (BEAKER) (test djqp=496) Normal RBC MORPHOLOGY (BEAKER) (test hmmz=889) Normal POCT-GLUCOSE [id number] 12:36:00 Test Item Value Reference Range Comments POC-GLUCOSE METER (BEAKER) 100 mg/dL 70-110 TESTED AT [facility] [address] [facility] (test tmzd=0280) [facility] [address] CBC WITH PLATELET COUNT + MANUAL [id number] 11:17:00 Test Item Value Reference Range Comments WHITE BLOOD CELL COUNT (BEAKER) (test mpgq=233) 6.8 K/ L 3.5-10.5 RED BLOOD CELL COUNT (BEAKER) (test wcua=793) 3.84 M/ L 4.63-6.08 HEMOGLOBIN (BEAKER) (test ednu=022) 11.6 GM/DL 13.7-17.5 HEMATOCRIT (BEAKER) (test flqd=392) 35.4 % 40.1-51.0 MEAN CORPUSCULAR VOLUME (BEAKER) (test nwil=448) 92.2 fL 79.0-92.2 MEAN CORPUSCULAR HEMOGLOBIN (BEAKER) (test 30.2 pg 25.7-32.2 dvtg=860) MEAN CORPUSCULAR HEMOGLOBIN CONC (BEAKER) (test 32.8 GM/DL 32.3-36.5 vaxz=851) RED CELL DISTRIBUTION WIDTH (BEAKER) (test 12.7 % 11.6-14.4 rwgw=803) PLATELET COUNT (BEAKER) (test atdc=110) 73 K/CU MM 150-450 MEAN PLATELET VOLUME (BEAKER) (test pjxv=274) 10.4 fL 9.4-12.4 NUCLEATED RED BLOOD CELLS (BEAKER) (test 0 /100 WBC 0-0 stex=109) [id number] 11:06:00 Test Item Value Reference Range Comments RPR SCREEN (BEAKER) (test ygac=145) Nonreactive Nonreactive URINALYSIS W/ [id number] 10:20:00 Test Item Value Reference Range Comments COLOR (BEAKER) (test plrt=830) Yellow CLARITY (BEAKER) (test lkkg=220) Cloudy SPECIFIC GRAVITY UA (BEAKER) (test fbht=168) 1.021 1.001-1.035 PH UA (BEAKER) (test qlsb=265) 5.5 5.0-8.0 PROTEIN UA (BEAKER) (test ndew=830) 50 mg/dL Negative GLUCOSE UA (BEAKER) (test tflu=556) Negative Negative KETONES UA (BEAKER) (test mcyx=311) Negative Negative BILIRUBIN UA (BEAKER) (test bewq=906) Negative Negative BLOOD UA (BEAKER) (test lqze=300) Moderate Negative NITRITE UA (BEAKER) (test sltm=002) Positive Negative LEUKOCYTE ESTERASE UA (BEAKER) (test cyut=712) Large Negative UROBILINOGEN UA (BEAKER) (test oprv=435) 0.2 mg/dL 0.2-1.0 RBC UA (BEAKER) (test pegm=399) 877 /HPF WBC UA (BEAKER) (test qxyd=765) 186 /HPF MUCUS (BEAKER) (test zwin=4463) Rare SQUAMOUS EPITHELIAL (BEAKER) (test boqi=175) 1 /HPF SOURCE(BEAKER) (test hnun=3388) URINALYSIS W/ REFLEX URINE [id number] 10:19:00 Test Item Value Reference Range Comments COLOR (BEAKER) (test vmbo=695) Yellow CLARITY (BEAKER) (test muxp=210) Cloudy SPECIFIC GRAVITY UA (BEAKER) (test vugt=775) 1.021 1.001-1.035 PH UA (BEAKER) (test wgbk=295) 5.5 5.0-8.0 PROTEIN UA (BEAKER) (test efds=227) 50 mg/dL Negative GLUCOSE UA (BEAKER) (test gnox=262) Negative Negative KETONES UA (BEAKER) (test wxsu=442) Negative Negative BILIRUBIN UA (BEAKER) (test ltqe=408) Negative Negative BLOOD UA (BEAKER) (test enwe=648) Moderate Negative NITRITE UA (BEAKER) (test ztst=280) Positive Negative LEUKOCYTE ESTERASE UA (BEAKER) (test kmyf=122) Large Negative UROBILINOGEN UA (BEAKER) (test mbvy=952) 0.2 mg/dL 0.2-1.0 RBC UA (BEAKER) (test kucp=901) 877 /HPF WBC UA (BEAKER) (test oniw=829) 186 /HPF MUCUS (BEAKER) (test nicn=7191) Rare SQUAMOUS EPITHELIAL (BEAKER) (test imlw=876) 1 /HPF SOURCE(BEAKER) (test osaw=6171) TROPONIN [id number] 09:07:00 Test Item Value Reference Range Comments TROPONIN I (BEAKER) (test kfuj=513) 0.16 ng/mL 0.00-0.03 Troponin I (TnI) levels [...] acidosis, acute neurological disease, and persistent tachyarrhythmia.HEMOGLOBIN [id number] 09:01:00 Test Item Value Reference Range Comments HEMOGLOBIN A1C (BEAKER) (test aznh=817) 5.6 % 4.3-6.1 LACTIC ACID, [id number] 08:58:00 Test Item Value Reference Range Comments LACTATE BLOOD VENOUS (2) (BEAKER) (test 1.1 mmol/L 0.5-2.2 bmla=6535) RAD, CHEST, 1 VIEW, NON [id number] 08:35:00Reason for exam:->feverShould this be performed at [...] Gutierrez Verified Date/Time: 02/15/2019 08:35:46 Reading Location: [facility] Radiology Reading Room POCT-GLUCOSE [id number] 06:48:00 Test Item Value Reference Range Comments POC-GLUCOSE METER (BEAKER) 106 mg/dL 70-110 TESTED AT [facility] [address] [facility] (test nrpu=1111) [facility] [address] VITAMIN B12 AND [id number] 06:29:00 Test Item Value Reference Range Comments VITAMIN B12 (BEAKER) (test ewes=284) 343 pg/mL 213-816 FOLATE (BEAKER) (test utoh=271) 15.9 ng/mL >=7.0 LACTIC ACID, [id number] 06:28:00 Test Item Value Reference Range Comments LACTATE BLOOD VENOUS (2) (BEAKER) (test 1.5 mmol/L 0.5-2.2 bfvj=4110) [id number] 04:00:00 Test Item Value Reference Range Comments PROCALCITONIN (BEAKER) (test tvmq=8226) 0.37 ng/mL <0.05 SEPSIS RISK (ng/mL)Low: 0.05-0.50Intermediate: 0.51-2.00High: & gt;=2.01TSH/FREE T4 IF [id number] 03:55:00 Test Item Value Reference Range Comments THYROID STIMULATING HORMONE (BEAKER) (test 0.67 uIU/mL 0.35-4.94 jsag=268) LACTIC ACID, [id number] 03:26:00 Test Item Value Reference Range Comments LACTATE BLOOD VENOUS (2) 0.8 mmol/L 0.5-2.2 Specimen slightly hemolyzed (BEAKER) (test kvkj=5454) Specimen slightly ictericCBC W/PLT COUNT & AUTO [id number] 01:55 :00 Test Item Value Reference Range Comments WHITE BLOOD CELL COUNT (BEAKER) (test ocmb=494) 12.7 K/ L 3.5-10.5 RED BLOOD CELL COUNT (BEAKER) (test tskx=211) 3.98 M/ L 4.63-6.08 HEMOGLOBIN (BEAKER) (test cwxj=859) 12.1 GM/DL 13.7-17.5 HEMATOCRIT (BEAKER) (test urjn=969) 36.7 % 40.1-51.0 MEAN CORPUSCULAR VOLUME (BEAKER) (test rvzl=362) 92.2 fL 79.0-92.2 MEAN CORPUSCULAR HEMOGLOBIN (BEAKER) (test 30.4 pg 25.7-32.2 cnuj=244) MEAN CORPUSCULAR HEMOGLOBIN CONC (BEAKER) (test 33.0 GM/DL 32.3-36.5 epmu=524) RED CELL DISTRIBUTION WIDTH (BEAKER) (test 12.7 % 11.6-14.4 itki=182) PLATELET COUNT (BEAKER) (test ltaf=223) 75 K/CU MM 150-450 MEAN PLATELET VOLUME (BEAKER) (test rlbq=971) 9.9 fL 9.4-12.4 NUCLEATED RED BLOOD CELLS (BEAKER) (test 0 /100 WBC 0-0 fvvh=077) (CELLAVISION MANUAL DIFF)2019-02-15 01:55:00 Test Item Value Reference Range Comments NEUTROPHILS - REL (CELLAVISION)(BEAKER) (test 65 % dntw=1367) LYMPHOCYTES - REL (CELLAVISION)(BEAKER) (test 20 % xjlc=9312) MONOCYTES - REL (CELLAVISION)(BEAKER) (test 10 % poqf=0155) EOSINOPHILS - REL (CELLAVISION)(BEAKER) (test 1 % wjrk=6423) BASOPHILS - REL (CELLAVISION)(BEAKER) (test 1 % jxgm=5982) BANDS - REL (CELLAVISION)(BEAKER) (test 3 % 0-10 naif=0226) NEUTROPHILS - ABS (CELLAVISION)(BEAKER) (test 8.26 K/ul 1.78-5.38 zpax=5946) LYMPHOCYTES - ABS (CELLAVISION)(BEAKER) (test 2.54 K/ul 1.32-3.57 cmpn=5220) MONOCYTES - ABS (CELLAVISION)(BEAKER) (test 1.27 K/uL 0.30-0.82 ffkx=5529) EOSINOPHILS - ABS (CELLAVISION)(BEAKER) (test 0.13 K/uL 0.04-0.54 cxoe=0520) BASOPHILS - ABS (CELLAVISION)(BEAKER) (test 0.13 K/uL 0.01-0.08 sold=7337) BANDS - ABS (CELLAVISION)(BEAKER) (test 0.38 K/uL 0.00-0.80 jbil=4646) TOTAL COUNTED (BEAKER) (test mlzj=8475) 100 PLT MORPHOLOGY (BEAKER) (test uhua=614) Normal SMUDGE CELLS (BEAKER) (test wtwi=4231) Present ANISOCYTOSIS (BEAKER) (test nugi=007) 1+ few MICROCYTES (BEAKER) (test cxov=677) 1+ few POIKILOCYTES (BEAKER) (test deea=303) 2+ moderate SPHEROCYTES (BEAKER) (test dxrh=243) 2+ moderate OVALOCYTES (BEAKER) (test rqph=211) 2+ moderate TEAR DROP CELLS (BEAKER) (test lioj=993) 2+ moderate PLATELET CONCENTRATION (CELLAVISION)(BEAKER) Decreased (test zvok=2901) Received comment: User comments: Slide comments:TROPONIN [id number] 01:42:00 Test Item Value Reference Range Comments TROPONIN I (BEAKER) (test pghm=166) 0.19 ng/mL 0.00-0.03 Troponin I (TnI) levels [...] acute neurological disease, and persistent tachyarrhythmia.BASIC METABOLIC [id number] 01:22:00 Test Item Value Reference Range Comments SODIUM (BEAKER) (test 139 meq/L 136-145 xiey=427) POTASSIUM (BEAKER) (test 3.6 meq/L 3.5-5.1 iiab=674) CHLORIDE (BEAKER) (test 104 meq/L 98-107 scau=178) CO2 (BEAKER) (test 25 meq/L 22-29 uhqt=384) BLOOD UREA NITROGEN 15 mg/dL 7-21 (BEAKER) (test nopn=864) CREATININE (BEAKER) (test 1.16 mg/dL 0.57-1.25 axbh=955) GLUCOSE RANDOM (BEAKER) 99 mg/dL 70-105 (test ogth=066) CALCIUM (BEAKER) (test 9.1 mg/dL 8.4-10.2 ipcm=922) EGFR (BEAKER) (test 66 mL/min/1.73 sq m ESTIMATED GFR IS NOT faet=8455) ACCURATE CREATININE CLEARANCE IN PREDICTING GLOMERULAR FILTRATION RATE. ESTIMATED GFR IS NOT APPLICABLE FOR DIALYSIS PATIENTS. Specimen slightly ictericLIPID [id number] 01:22:00 Test Item Value Reference Range Comments TRIGLYCERIDES (BEAKER) (test bfpl=777) 119 mg/dL CHOLESTEROL (BEAKER) (test doos=512) 115 mg/dL HDL CHOLESTEROL (BEAKER) (test thib=779) 42 mg/dL LDL CHOLESTEROL CALCULATED (BEAKER) (test 49 mg/dL mmer=441) Triglyceride Reference Range: Low Risk <150 Borderline 150- 199 High Risk 200-499 Very High Risk >=500Cholesterol Reference Range: Low Risk <200 Borderline 200-239 High Risk > 240HDL Cholesterol Reference Range: Low Risk >=60 High Risk <40LDL Cholesterol Reference Range: Optimal <100 Near Optimal 100-129 Borderline 130-159 High 160-189 Very High >=190 Specimen slightly ictericHEPATIC FUNCTION [id number] 01:22: 00 Test Item Value Reference Range Comments TOTAL PROTEIN (BEAKER) (test smjw=051) 7.2 gm/dL 6.0-8.3 ALBUMIN (BEAKER) (test ojnx=8349) 4.1 g/dL 3.5-5.0 BILIRUBIN TOTAL (BEAKER) (test spss=954) 2.2 mg/dL 0.2-1.2 BILIRUBIN DIRECT (BEAKER) (test xuoz=040) 0.8 mg/dL 0.1-0.5 ALKALINE PHOSPHATASE (BEAKER) (test lixj=020) 109 U/L 40-150 AST (SGOT) (BEAKER) (test dzhq=605) 23 U/L 5-34 ALT (SGPT) (BEAKER) (test uuii=003) 20 U/L 6-55 Specimen slightly ictericRAD, CHEST, PA OR AP, 1 [id number] 18:34:00Reason for exam:->chest painShould this be performed [...] rib fractures ofundetermined age. Signed: Kiara Katz [facility] Verified Date/ Time: 02/14/2019 18:34:55 Reading Location: [address] Consult Reading Room TROPONIN [id number] 18:31:00 Test Item Value Reference Range Comments TROPONIN I (BEAKER) (test zjmn=451) 0.13 ng/mL 0.00-0.03 Troponin I (TnI) levels [...] acute neurological disease, and persistent tachyarrhythmia.BASIC METABOLIC [id number] 18:23:00 Test Item Value Reference Range Comments SODIUM (BEAKER) (test 134 meq/L 136-145 fsdj=976) POTASSIUM (BEAKER) (test 3.2 meq/L 3.5-5.1 etpe=102) CHLORIDE (BEAKER) (test 103 meq/L 98-107 yyse=394) CO2 (BEAKER) (test 24 meq/L 22-29 ygxl=655) BLOOD UREA NITROGEN 16 mg/dL 7-21 (BEAKER) (test dyrj=682) CREATININE (BEAKER) (test 1.15 mg/dL 0.57-1.25 fjkq=213) GLUCOSE RANDOM (BEAKER) 127 mg/dL 70-105 (test vcyr=413) CALCIUM (BEAKER) (test 8.7 mg/dL 8.4-10.2 tepl=090) EGFR (BEAKER) (test 67 mL/min/1.73 sq m ESTIMATED GFR IS NOT qjic=8588) ACCURATE CREATININE CLEARANCE IN PREDICTING GLOMERULAR FILTRATION RATE. ESTIMATED GFR IS NOT APPLICABLE FOR DIALYSIS PATIENTS. PT/[id number] 18:15:00 Test Item Value Reference Range Comments PROTIME (BEAKER) (test zbdp=434) 16.4 seconds 11.9-14.2 INR (BEAKER) (test cgrp=460) 1.4 <=5.9 PARTIAL THROMBOPLASTIN TIME (BEAKER) (test 29.6 seconds 22.5-36.0 ceor=295) Effective 12/06/2018: PT Reference Range ChangeNew: 11.9-14.2 Previous: 11.7- 14.7RECOMMENDED COUMADIN/WARFARIN INR THERAPY RANGESSTANDARD DOSE: 2.0-3.0 Includes: PROPHYLAXIS for venous thrombosis, systemic embolization; TREATMENT for venous thrombosis and/or pulmonary embolus.HIGH RISK: Target INR is2.5-3.5 for patients wiht mechanical heart valves.CT, CTANGIO [id number] 18:14: 00Reason for exam:->l hpFINAL REPORT CT, [...] arteries: Normal contrast opacification of the bilateral CONVENTIONAL MORTGAGE UNDERWRITER P1-P2 branches. Venous opacification: Major dural sinuses [...] MDReport Verified Date/Time: 02/14/2019 18:14:44 Reading Location: [address] Neuro Reading Room CT, CAROTID, [id number] 18:14:00Reason for exam:->Ischemic Stroke EvaluationFINAL REPORT CT, [...] arteries: Normal contrast opacification of the bilateral CONVENTION[employer] MORTGAGE UNDERWRITER P1-P2 branches. Venous opacification: Major dural sinuses [...] MDReport Verified Date/Time: 02/14/2019 18:14:44 Reading Location: [address] Neuro Reading Room CBC W/PLT COUNT & AUTO [id number] 18:07:00 Test Item Value Reference Range Comments WHITE BLOOD CELL COUNT (BEAKER) (test zsez=628) 12.2 K/ L 3.5-10.5 RED BLOOD CELL COUNT (BEAKER) (test yybc=316) 3.71 M/ L 4.63-6.08 HEMOGLOBIN (BEAKER) (test uonr=473) 11.3 GM/DL 13.7-17.5 HEMATOCRIT (BEAKER) (test nsgq=600) 33.9 % 40.1-51.0 MEAN CORPUSCULAR VOLUME (BEAKER) (test qcna=183) 91.4 fL 79.0-92.2 MEAN CORPUSCULAR HEMOGLOBIN (BEAKER) (test 30.5 pg 25.7-32.2 tisx=747) MEAN CORPUSCULAR HEMOGLOBIN CONC (BEAKER) (test 33.3 GM/DL 32.3-36.5 csrg=544) RED CELL DISTRIBUTION WIDTH (BEAKER) (test 12.8 % 11.6-14.4 wlhy=555) PLATELET COUNT (BEAKER) (test msnp=786) 89 K/CU MM 150-450 MEAN PLATELET VOLUME (BEAKER) (test uutu=999) 9.9 fL 9.4-12.4 NUCLEATED RED BLOOD CELLS (BEAKER) (test 0 /100 WBC 0-0 bcoi=090) NEUTROPHILS RELATIVE PERCENT (BEAKER) (test 81 % utab=613) LYMPHOCYTES RELATIVE PERCENT (BEAKER) (test 8 % dosy=640) MONOCYTES RELATIVE PERCENT (BEAKER) (test 10 % bkum=408) EOSINOPHILS RELATIVE PERCENT (BEAKER) (test 0 % hefr=970) BASOPHILS RELATIVE PERCENT (BEAKER) (test 0 % ehhj=769) NEUTROPHILS ABSOLUTE COUNT (BEAKER) (test 9.89 K/ L 1.78-5.38 xtou=281) LYMPHOCYTES ABSOLUTE COUNT (BEAKER) (test 1.02 K/ L 1.32-3.57 owuv=156) MONOCYTES ABSOLUTE COUNT (BEAKER) (test ahba=727) 1.21 K/ L 0.30-0.82 EOSINOPHILS ABSOLUTE COUNT (BEAKER) (test 0.02 K/ L 0.04-0.54 ccjq=479) BASOPHILS ABSOLUTE COUNT (BEAKER) (test wkbd=545) 0.05 K/ L 0.01-0.08 IMMATURE GRANULOCYTES-RELATIVE PERCENT (BEAKER) 0 % 0-1 (test ifup=9401) POCT-GLUCOSE [id number] 18:04:00 Test Item Value Reference Range Comments POC-GLUCOSE METER (BEAKER) 133 mg/dL 70-110 TESTED AT [address] (test ablu=6942) [facility] [address] CT, BRAIN/STROKE [id number] 17:41:00Reason for exam:->strokeWhat is the patient's sedation [...] MDReport Verified Date/Time: 02/14/2019 17:41:18 Reading Location: [address] Neuro Reading Room Electronically signed by: GIA STATON MD on 05:41 PMCT, CHEST, WITH IV [id number] 09:03:00FINAL REPORT CT CHEST, ABDOMEN, AND PELVIS WITH CONTRAST HISTORY: Malignant neoplasm of urinary bladder, bladder cancer status post NAC and radical cystectomy, RPLND and UrtxehL39.9 COMPARISON: CT of the chest, abdomen and [...] signed by: JORDAN CONWAY on 02/2019 09:03 AMCT, [id number] 09:03:00FINAL REPORT CT CHEST, ABDOMEN, AND PELVIS WITH CONTRAST HISTORY: Malignant neoplasm of urinary bladder, bladder cancer status post NAC and radical cystectomy, RPLND and CgslpoY82.9 COMPARISON: CT of the chest, abdomen and [...] signed by: JORDAN CONWAY on 02/2019 09:03 PAEAJA-[id number] 16:32:00 Test Item Value Reference Range Comments POC-CREATININE (BEAKER) 1.3 mg/dL 0.6-1.3 TESTED AT [facility] [address] (test ccng=9216) [facility] [address] POC-EGFR (BEAKER) (test 58 mL/min/1.73M2 nwko=6582) TISSUE [id number] 16:33:00Surgical Pathology Report Case: [id number] Authorizing Provider: Danny Swanson MD Collected: 01/02/201844 Ordering Location: [facility] Received: 01/02/2018 0950 SERVICES Pathologist: Abdulaziz [...] (pT): pT0 Regional Lymph Nodes (pN): pN3 64024, 66929 X 9, 60717 X 4, 75170 X 11Bladder cancerA. Pelvic lymph nodes, para- [...] Black-right bladder and prostate, blue-left bladder and prostate.Hollow Tile Partition Erector sections are submitted as follows: R1, left ureter resection margin; R2, right ureter resection margin; R3, left ureteral orifice; R4, right ureteral orifice; R5, left ureter sales representative adding machines sections; R6,right ureter sales representative adding machines sections; R7 -R23, left lateral bladder wall scar, end submitted; R24, R25, right lateral wall sales representative adding machines sections; R26, R27, sales representative adding machines sections of posterior wall; R28, R29, sales representative adding machines sections of bladder dome; R30, sales representative adding machines section of trigone; R31, sales representative adding machines section of anterior wall; R32, prostate apex; R33-37, prostate from apex to base; R38, seminal vesicles. DD/ewS. Labeled "small bowel resection" consists of a segment of small bowel measuring 3cm in length x 1.5 cm in diameter. The specimen is grossly unremarkable. Section code: S1, resectionmargin en face; S2, random section of small bowel. CG /plFROZEN SECTION DIAGNOSIS:[id number]: DISTAL PARA-AORTIC LYMPH NODE, EXCISION: - TUMOR PRESENT IN LYMPH NODE - REPORTED BY DR. ARTHUR TO DR. SWANSON AT 10:20 [id number]: LYMPH NODE, PROXIMAL LIMIT OF DISSECTION PARAORTA, [...] TO DR. SWANSON AT 11:45 AM Performed.URINE [id number] 12:19:00 Test Item Value Reference Range Comments CULTURE (BEAKER) (test ENTEROCOCCUS SPECIES >100,000 col/mL ixuf=9295) Enterococcus species Ampicillin (test code=26) Linezolid (test code=40) Nitrofurantoin (test code=23) Tetracycline (test code=2) Vancomycin (test code=13) [id number] 08:23:00 Test Item Value Reference Range Comments PHOSPHORUS (BEAKER) (test zmfq=807) 3.0 mg/dL 2.3-4.7 Before arterial line is [id number] 08:23:00 Test Item Value Reference Range Comments MAGNESIUM (BEAKER) (test hblz=336) 1.6 mg/dL 1.6-2.6 Before arterial line is discontinuedBASIC METABOLIC [id number] 08:23:00 Test Item Value Reference Range Comments SODIUM (BEAKER) (test 139 meq/L 136-145 mkfk=449) POTASSIUM (BEAKER) (test 3.5 meq/L 3.5-5.1 wwvh=913) CHLORIDE (BEAKER) (test 106 meq/L 98-107 vtno=993) CO2 (BEAKER) (test 26 meq/L 22-29 uskc=055) BLOOD UREA NITROGEN 9 mg/dL 7-21 (BEAKER) (test pmlt=454) CREATININE (BEAKER) (test 0.85 mg/dL 0.57-1.25 lblc=769) GLUCOSE RANDOM (BEAKER) 97 mg/dL 70-105 (test wdmw=946) CALCIUM (BEAKER) (test 8.4 mg/dL 8.4-10.2 ccvu=332) EGFR (BEAKER) (test 95 mL/min/1.73 sq m ESTIMATED GFR IS NOT sfpe=3540) ACCURATE CREATININE CLEARANCE IN PREDICTING GLOMERULAR FILTRATION RATE. ESTIMATED GFR IS NOT APPLICABLE FOR DIALYSIS PATIENTS. Before arterial line is discontinuedHEMOGLOBIN AND [id number] 07:53:00 Test Item Value Reference Range Comments HEMOGLOBIN (BEAKER) (test tgqm=549) 8.3 GM/DL 13.7-17.5 HEMATOCRIT (BEAKER) (test pnlt=340) 25.5 % 40.1-51.0 [id number] 07:53:00 Test Item Value Reference Range Comments PHOSPHORUS (BEAKER) (test acap=999) 3.0 mg/dL 2.3-4.7 Before arterial line is [id number] 07:53:00 Test Item Value Reference Range Comments MAGNESIUM (BEAKER) (test ngmr=102) 1.6 mg/dL 1.6-2.6 Before arterial line is discontinuedBASIC METABOLIC [id number] 07:53:00 Test Item Value Reference Range Comments SODIUM (BEAKER) (test 135 meq/L 136-145 ndgq=456) POTASSIUM (BEAKER) (test 3.9 meq/L 3.5-5.1 khpp=788) CHLORIDE (BEAKER) (test 109 meq/L 98-107 cyjy=817) CO2 (BEAKER) (test 20 meq/L 22-29 plid=916) BLOOD UREA NITROGEN 12 mg/dL 7-21 (BEAKER) (test bzxl=257) CREATININE (BEAKER) (test 0.88 mg/dL 0.57-1.25 amua=211) GLUCOSE RANDOM (BEAKER) 94 mg/dL 70-105 (test xwfr=609) CALCIUM (BEAKER) (test 8.2 mg/dL 8.4-10.2 uyhk=207) EGFR (BEAKER) (test 91 mL/min/1.73 sq m ESTIMATED GFR IS NOT ktiv=3614) ACCURATE CREATININE CLEARANCE IN PREDICTING GLOMERULAR FILTRATION RATE. ESTIMATED GFR IS NOT APPLICABLE FOR DIALYSIS PATIENTS. Before arterial line is discontinuedHEMOGLOBIN AND [id number] 06:12:00 Test Item Value Reference Range Comments HEMOGLOBIN (BEAKER) (test ydse=201) 7.6 GM/DL 13.7-17.5 HEMATOCRIT (BEAKER) (test axsl=983) 23.7 % 40.1-51.0 [id number] 05:44:00 Test Item Value Reference Range Comments PHOSPHORUS (BEAKER) (test wgep=625) 3.0 mg/dL 2.3-4.7 Before arterial line is [id number] 05:44:00 Test Item Value Reference Range Comments MAGNESIUM (BEAKER) (test hguf=705) 1.6 mg/dL 1.6-2.6 Before arterial line is discontinuedBASIC METABOLIC [id number] 05:44:00 Test Item Value Reference Range Comments SODIUM (BEAKER) (test 138 meq/L 136-145 pxqc=346) POTASSIUM (BEAKER) (test 4.1 meq/L 3.5-5.1 tahr=112) CHLORIDE (BEAKER) (test 109 meq/L 98-107 xwpm=048) CO2 (BEAKER) (test 21 meq/L 22-29 crta=035) BLOOD UREA NITROGEN 19 mg/dL 7-21 (BEAKER) (test glev=495) CREATININE (BEAKER) (test 1.12 mg/dL 0.57-1.25 vwnc=886) GLUCOSE RANDOM (BEAKER) 107 mg/dL 70-105 (test gwpm=084) CALCIUM (BEAKER) (test 8.3 mg/dL 8.4-10.2 wzhi=479) EGFR (BEAKER) (test 69 mL/min/1.73 sq m ESTIMATED GFR IS NOT xtbf=5931) ACCURATE CREATININE CLEARANCE IN PREDICTING GLOMERULAR FILTRATION RATE. ESTIMATED GFR IS NOT APPLICABLE FOR DIALYSIS PATIENTS. Before arterial line is discontinuedHEMOGLOBIN AND [id number] 05:07:00 Test Item Value Reference Range Comments HEMOGLOBIN (BEAKER) (test gjsg=396) 7.6 GM/DL 13.7-17.5 HEMATOCRIT (BEAKER) (test lxki=217) 23.4 % 40.1-51.0 [id number] 06:36:00 Test Item Value Reference Range Comments MAGNESIUM (BEAKER) (test ltzd=832) 2.1 mg/dL 1.6-2.6 Before arterial line is discontinuedBASIC METABOLIC [id number] 06:36:00 Test Item Value Reference Range Comments SODIUM (BEAKER) (test 134 meq/L 136-145 pnpi=926) POTASSIUM (BEAKER) (test 4.9 meq/L 3.5-5.1 wzec=824) CHLORIDE (BEAKER) (test 107 meq/L 98-107 ycwb=368) CO2 (BEAKER) (test 21 meq/L 22-29 rxpl=723) BLOOD UREA NITROGEN 26 mg/dL 7-21 (BEAKER) (test daic=360) CREATININE (BEAKER) (test 1.36 mg/dL 0.57-1.25 heoj=643) GLUCOSE RANDOM (BEAKER) 113 mg/dL 70-105 (test brhq=054) CALCIUM (BEAKER) (test 8.2 mg/dL 8.4-10.2 vloz=643) EGFR (BEAKER) (test 55 mL/min/1.73 sq m ESTIMATED GFR IS NOT athh=8129) ACCURATE CREATININE CLEARANCE IN PREDICTING GLOMERULAR FILTRATION RATE. ESTIMATED GFR IS NOT APPLICABLE FOR DIALYSIS PATIENTS. Before arterial line is [id number] 06:36:00 Test Item Value Reference Range Comments PHOSPHORUS (BEAKER) (test zojq=229) 3.3 mg/dL 2.3-4.7 HEMOGLOBIN AND [id number] 06:16:00 Test Item Value Reference Range Comments HEMOGLOBIN (BEAKER) (test zdpp=091) 7.9 GM/DL 13.7-17.5 HEMATOCRIT (BEAKER) (test fdua=178) 24.4 % 40.1-51.0 [id number] 06:27:00 Test Item Value Reference Range Comments PHOSPHORUS (BEAKER) (test vbfu=904) 3.4 mg/dL 2.3-4.7 Before arterial line is [id number] 06:27:00 Test Item Value Reference Range Comments MAGNESIUM (BEAKER) (test tfzr=165) 2.3 mg/dL 1.6-2.6 Before arterial line is discontinuedBASIC METABOLIC [id number] 06:27:00 Test Item Value Reference Range Comments SODIUM (BEAKER) (test 134 meq/L 136-145 afpx=041) POTASSIUM (BEAKER) (test 5.6 meq/L 3.5-5.1 ogqd=577) CHLORIDE (BEAKER) (test 108 meq/L 98-107 hlju=036) CO2 (BEAKER) (test 19 meq/L 22-29 ubal=211) BLOOD UREA NITROGEN 27 mg/dL 7-21 (BEAKER) (test yyhp=173) CREATININE (BEAKER) (test 1.62 mg/dL 0.57-1.25 gxtk=519) GLUCOSE RANDOM (BEAKER) 155 mg/dL 70-105 (test ofpz=559) CALCIUM (BEAKER) (test 8.6 mg/dL 8.4-10.2 gycn=177) EGFR (BEAKER) (test 45 mL/min/1.73 sq m ESTIMATED GFR IS NOT rhxm=8164) ACCURATE CREATININE CLEARANCE IN PREDICTING GLOMERULAR FILTRATION RATE. ESTIMATED GFR IS NOT APPLICABLE FOR DIALYSIS PATIENTS. Before arterial line is discontinuedHEMOGLOBIN AND [id number] 06:12:00 Test Item Value Reference Range Comments HEMOGLOBIN (BEAKER) (test frww=735) 8.7 GM/DL 13.7-17.5 HEMATOCRIT (BEAKER) (test wwfh=613) 26.1 % 40.1-51.0 BASIC METABOLIC [id number] 16:59:00 Test Item Value Reference Range Comments SODIUM (BEAKER) (test 137 meq/L 136-145 fosb=068) POTASSIUM (BEAKER) (test 5.0 meq/L 3.5-5.1 uzbe=270) CHLORIDE (BEAKER) (test 110 meq/L 98-107 koin=979) CO2 (BEAKER) (test 17 meq/L 22-29 bifm=989) BLOOD UREA NITROGEN 18 mg/dL 7-21 (BEAKER) (test shql=695) CREATININE (BEAKER) (test 1.22 mg/dL 0.57-1.25 olgs=527) GLUCOSE RANDOM (BEAKER) 156 mg/dL 70-105 (test mfzw=154) CALCIUM (BEAKER) (test 8.6 mg/dL 8.4-10.2 zyfo=355) EGFR (BEAKER) (test 63 mL/min/1.73 sq m ESTIMATED GFR IS NOT xlpd=6283) ACCURATE CREATININE CLEARANCE IN PREDICTING GLOMERULAR FILTRATION RATE. ESTIMATED GFR IS NOT APPLICABLE FOR DIALYSIS PATIENTS. [id number]:13:00 Test Item Value Reference Range Comments HEMOGLOBIN (BEAKER) (test dmnk=715) 8.5 GM/DL 13.7-17.5 HEMATOCRIT (BEAKER) (test pgak=435) 25.5 % 40.1-51.0 SODIUM NA-STAT [id number] 13:04:00 Test Item Value Reference Range Comments SODIUM (BEAKER) (test axhr=451) 137 meq/L 135-148 POTASSIUM-STAT [id number] 13:04:00 Test Item Value Reference Range Comments POTASSIUM (BEAKER) (test wklk=220) 4.1 meq/L 3.6-5.5 CALCIUM, [id number] 13:04:00 Test Item Value Reference Range Comments CALCIUM IONIZED (BEAKER) (test vyxe=696) 1.08 mmol/L 1.12-1.27 PH, BLOOD (BEAKER) (test ucry=6513) 7.39 BLOOD GAS, [id number] 13:04:00 Test Item Value Reference Range Comments PH ARTERIAL (BEAKER) (test dwer=548) 7.39 7.35-7.45 PCO2 ARTERIAL (BEAKER) (test hvlw=220) 36 mmHg 35-45 PO2 ARTERIAL (BEAKER) (test itaf=345) 241 mmHg 80-90 O2 SATURATION ARTERIAL (BEAKER) (test khjo=966) 99.5 % 96.0-97.0 HCO3 ARTERIAL (BEAKER) (test uhtl=991) 21 mmol/L 21-29 BASE EXCESS ARTERIAL (BEAKER) (test govc=906) -3.2 mmol/L -2.0-3.0 PATIENT TEMPERATURE (BEAKER) (test ysie=2809) 37.0 C FIO2 (BEAKER) (test kpfg=2891) 100.0 % GLUCOSE-STAT [id number] 13:04:00 Test Item Value Reference Range Comments GLUCOSE RANDOM (BEAKER) (test vchr=762) 121 mg/dL 70-110 HGB/HCT (H&H) - STAT [id number] 13:04:00 Test Item Value Reference Range Comments HEMOGLOBIN (BEAKER) (test tqvk=184) 7.7 g/dL 13.0-16.8 HEMATOCRIT (BEAKER) (test bzxg=400) 23.0 % 40.0-50.0 BASIC METABOLIC [id number] 08:07:00 Test Item Value Reference Range Comments SODIUM (BEAKER) (test 138 meq/L 136-145 yyws=823) POTASSIUM (BEAKER) (test 3.9 meq/L 3.5-5.1 Specimen slightly jawv=365) hemolyzed CHLORIDE (BEAKER) (test 102 meq/L 98-107 ekli=577) CO2 (BEAKER) (test 26 meq/L 22-29 lomg=519) BLOOD UREA NITROGEN 17 mg/dL 7-21 (BEAKER) (test hwkd=787) CREATININE (BEAKER) (test 1.00 mg/dL 0.57-1.25 Specimen slightly otpw=093) hemolyzed GLUCOSE RANDOM (BEAKER) 100 mg/dL 70-105 (test clim=178) CALCIUM (BEAKER) (test 9.3 mg/dL 8.4-10.2 fogm=079) EGFR (BEAKER) (test 79 mL/min/1.73 sq m ESTIMATED GFR IS NOT jbcg=3890) ACCURATE CREATININE CLEARANCE IN PREDICTING GLOMERULAR FILTRATION RATE. ESTIMATED GFR IS NOT APPLICABLE FOR DIALYSIS PATIENTS. [id number] 07:18:00 Test Item Value Reference Range Comments HEMOGLOBIN (MARCIE) (test yncs=907) 11.3 GM/DL 13.7-17.5 Check JUWAN, CV ACCESS, [id number] 13:27:00Reason for Exam:->Malgnant neoplasm of urinary bladder, [...] the patient's medical record by the nurse. Colorer Machine: Daniel Ty MD Seismic Survey Assistant: None. Approach: Right internal jugular vein Estimated [...] needle into the right atrium. A 4 [place] micropuncture sheath was placed. A subcutaneous tunnel and pocket were created in the right anterior chest wall by blunt dissection. The pocket was flushed with antibiotic solution. A 6 [place] Bard single lumen power injectable port was [...] MDReport Verified Date/Time: 2017 13:27:04 Reading Location: [place] [address] Angio Body Reading Room [id number] 09:22:00 Test Item Value Reference Range Comments PROTIME (BEAKER) (test njkt=894) 14.0 seconds 11.7-14.7 INR (BEAKER) (test gxfd=108) 1.1 <=5.9 PARTIAL THROMBOPLASTIN TIME (BEAKER) (test 28.1 seconds 22.5-36.0 fruo=470) RECOMMENDED COUMADIN/WARFARIN INR THERAPY RANGESSTANDARD DOSE: 2.0 - 3.0 Includes: PROPHYLAXIS forvenous thrombosis, systemic embolization; TREATMENT for venous thrombosis and/or pulmonary embolus.HIGH RISK: Target INR is 2.5-3.5 for patients with mechanical heart valves.PLATELET [id number] 09:07:00 Test Item Value Reference Range Comments PLATELET COUNT (BEAKER) (test lqhv=843) 283 K/CU MM 150-450 PET/CT, WHOLE BODY [id number] 14:56:00Reason for Exam:->c67.9FINAL REPORT EXAMINATION: FDG-PET/CT, 08/03/2017 [...] feetAdditional imaging: NoneSerum blood glucose: 109CPT Code: 05873 FINDINGS:Head and Neck: Mild bernice activity is [...] consistent with infection or inflammation. Signed: [facility] Verified Date/Time: 08/03/2017 14:56:22 02 :56 PMPOCT-GLUCOSE [id number] 09:20:00 Test Item Value Reference Range Comments POC-GLUCOSE METER (BEAKER) 109 mg/dL 70-110 TESTED AT [facility] [address] [facility] (test ouwy=4961) [facility] [address] TISSUE [id number] 14:18:00Surgical Pathology Report Case: [id number] Authorizing Provider: Danny Swanson MD Collected: 07/25/2017 1140 Ordering Location: [facility] Received: 07/25/2017 1251 SERVICES Pathologist: Abdulaziz [...] GRANULOMATOUS INFLAMMATION Signing Pathologist Direct Phone Line: [phone] signed by Abdulaziz Daniels MD on 07/26/2017 at 2:18 PMApproximately 20% of the tumor shows some degree of squamous differentiation and 1% shows a micropapillary pattern.508[address], 449[address]Whemfon cancerA. Bladder tumor left lateral wall. B. [...] entirely submitted in cassette B1. DB/ewPerformed.URINALYSIS W/ [id number] 09: 23:00 Test Item Value Reference Range Comments COLOR (BEAKER) (test mwoi=983) Yellow CLARITY (BEAKER) (test pwbq=707) Hazy SPECIFIC GRAVITY UA (BEAKER) (test 1.019 1.001-1.035 cwbn=337) PH UA (BEAKER) (test yhpg=160) 5.5 5.0-8.0 PROTEIN UA (BEAKER) (test ukpg=368) 100 mg/dL Negative GLUCOSE UA (BEAKER) (test aeyk=015) Negative Negative KETONES UA (BEAKER) (test mzex=717) Negative Negative BILIRUBIN UA (BEAKER) (test mwsv=227) Negative Negative BLOOD UA (BEAKER) (test ubuh=569) Moderate Negative NITRITE UA (BEAKER) (test opgb=513) Negative Negative LEUKOCYTE ESTERASE UA (BEAKER) (test Large Negative lkyp=181) UROBILINOGEN UA (BEAKER) (test diiw=351) 2.0 mg/dL 0.2-1.0 RBC UA (BEAKER) (test nxls=541) 27 /HPF WBC UA (BEAKER) (test xdgp=940) 155 /HPF MUCUS (BEAKER) (test pzje=0538) Rare HYALINE CASTS (BEAKER) (test kile=393) 1 /LPF SOURCE(BEAKER) (test ztyk=9523) Urine, Clean Catch
== END 2019-05-19 22:55 | disposition home or self-care (01) ==
LOC: ER 20:25
DX: T82.837A Hemorrhage due to cardiac prosthetic devices, implants and grafts, initial encounter (principal); E03.9 Hypothyroidism, unspecified; Z85.46 Personal history of malignant neoplasm of prostate; Z85.51 Personal history of malignant neoplasm of bladder; Z86.73 Personal history of transient ischemic attack (TIA), and cerebral infarction without residual deficits; Z79.01 Long term (current) use of anticoagulants; Z79.82 Long term (current) use of aspirin; Z88.0 Allergy status to penicillin; Z88.5 Allergy status to narcotic agent
CPT/HCPCS: 99284

== ENCOUNTER 2019-06-27 20:29 | Emergency (ER) | payer BC ==
--- OUTSIDE RECORDS SUMMARY | 2019-06-27 20:36 | XMS REPORT ---
:1965 [facility] Address [address] [place] [address] Care Team Providers Name Role Phone MONSERRAT LANDEROS Unavailable Unavailable NANCY HINTON Unavailable Unavailable PIETER HERNANDEZA BREANNA Unavailable Unavailable DANI SMITH Unavailable Unavailable LORENA REYES Unavailable Unavailable NARENDRA KIM Unavailable Unavailable DANNY SWANSON Unavailable Unavailable Problems This patient has no known problems. Allergies, Adverse Reactions, Alerts This patient has no known allergies or adverse reactions. Medications This patient has no known medications. Results Test Description Test Time Test Comments Text Results Atomic Results Result Comments BASIC METABOLIC PANEL 2019-06-21 07:25:00 Test Item Value Reference Range Comments SODIUM (BEAKER) (test 140 meq/L 136-145 ekgo=013) POTASSIUM (BEAKER) (test 4.1 meq/L 3.5-5.1 arxb=665) CHLORIDE (BEAKER) (test 101 meq/L 98-107 nmww=718) CO2 (BEAKER) (test nluh=233) 31 meq/L 22-29 BLOOD UREA NITROGEN (BEAKER) 23 mg/dL 7-21 (test hoii=687) CREATININE (BEAKER) (test 1.36 mg/dL 0.57-1.25 wiuz=326) GLUCOSE RANDOM (BEAKER) 99 mg/dL 70-105 (test udyz=687) CALCIUM (BEAKER) (test 8.7 mg/dL 8.4-10.2 vbhw=065) EGFR (BEAKER) (test 55 mL/min/1.73 sq m ESTIMATED GFR IS NOT ynfd=3769) ACCURATE CREATININE CLEARANCE IN PREDICTING GLOMERULAR FILTRATION RATE. ESTIMATED GFR IS NOT APPLICABLE FOR DIALYSIS PATIENTS. CBC W/PLT COUNT & AUTO [id number] 07:14:00 Test Item Value Reference Range Comments WHITE BLOOD CELL COUNT (BEAKER) (test qodg=160) 8.8 K/ L 3.5-10.5 RED BLOOD CELL COUNT (BEAKER) (test nqgd=992) 3.15 M/ L 4.63-6.08 HEMOGLOBIN (BEAKER) (test rkxq=375) 9.1 GM/DL 13.7-17.5 HEMATOCRIT (BEAKER) (test sbzp=824) 28.1 % 40.1-51.0 MEAN CORPUSCULAR VOLUME (BEAKER) (test hpsb=970) 89.2 fL 79.0-92.2 MEAN CORPUSCULAR HEMOGLOBIN (BEAKER) (test 28.9 pg 25.7-32.2 rplo=211) MEAN CORPUSCULAR HEMOGLOBIN CONC (BEAKER) (test 32.4 GM/DL 32.3-36.5 onjx=928) RED CELL DISTRIBUTION WIDTH (BEAKER) (test 13.8 % 11.6-14.4 ddyc=400) PLATELET COUNT (BEAKER) (test umtu=153) 190 K/CU MM 150-450 MEAN PLATELET VOLUME (BEAKER) (test sxbh=996) 9.8 fL 9.4-12.4 NUCLEATED RED BLOOD CELLS (BEAKER) (test 0 /100 WBC 0-0 oxlg=603) NEUTROPHILS RELATIVE PERCENT (BEAKER) (test 55 % dgrj=197) LYMPHOCYTES RELATIVE PERCENT (BEAKER) (test 14 % dtor=351) MONOCYTES RELATIVE PERCENT (BEAKER) (test 13 % utag=799) EOSINOPHILS RELATIVE PERCENT (BEAKER) (test 15 % vgpv=366) BASOPHILS RELATIVE PERCENT (BEAKER) (test 2 % gobp=864) NEUTROPHILS ABSOLUTE COUNT (BEAKER) (test 4.89 K/ L 1.78-5.38 pqjf=845) LYMPHOCYTES ABSOLUTE COUNT (BEAKER) (test 1.27 K/ L 1.32-3.57 odzv=927) MONOCYTES ABSOLUTE COUNT (BEAKER) (test 1.10 K/ L 0.30-0.82 gnwz=561) EOSINOPHILS ABSOLUTE COUNT (BEAKER) (test 1.33 K/ L 0.04-0.54 mlln=024) BASOPHILS ABSOLUTE COUNT (BEAKER) (test 0.19 K/ L 0.01-0.08 mdbb=504) IMMATURE GRANULOCYTES-RELATIVE PERCENT (BEAKER) 1 % 0-1 (test hkpi=2513) VANCOMYCIN LEVEL, [id number] 18:49:00 Test Item Value Reference Range Comments VANCOMYCIN RANDOM (BEAKER) (test hiaf=339) 28.4 ug/mL Reference Range: No [id number] 06:09:00 Test Item Value Reference Range Comments PARTIAL THROMBOPLASTIN TIME (BEAKER) (test 98.8 seconds 22.5-36.0 ngfs=440) [id number] 04:27:00 Test Item Value Reference Range Comments PARTIAL THROMBOPLASTIN TIME (BEAKER) (test > seconds 22.5-36.0 yvth=390) CBC W/PLT COUNT & AUTO [id number] 04:21:00 Test Item Value Reference Range Comments WHITE BLOOD CELL COUNT (BEAKER) (test zihc=545) 8.8 K/ L 3.5-10.5 RED BLOOD CELL COUNT (BEAKER) (test jydm=560) 3.12 M/ L 4.63-6.08 HEMOGLOBIN (BEAKER) (test qjoz=705) 8.9 GM/DL 13.7-17.5 HEMATOCRIT (BEAKER) (test vush=779) 28.2 % 40.1-51.0 MEAN CORPUSCULAR VOLUME (BEAKER) (test nqac=539) 90.4 fL 79.0-92.2 MEAN CORPUSCULAR HEMOGLOBIN (BEAKER) (test 28.5 pg 25.7-32.2 xvjw=327) MEAN CORPUSCULAR HEMOGLOBIN CONC (BEAKER) (test 31.6 GM/DL 32.3-36.5 ryfn=552) RED CELL DISTRIBUTION WIDTH (BEAKER) (test 13.5 % 11.6-14.4 evdk=133) PLATELET COUNT (BEAKER) (test tfyq=165) 185 K/CU MM 150-450 MEAN PLATELET VOLUME (BEAKER) (test bzqf=375) 9.3 fL 9.4-12.4 NUCLEATED RED BLOOD CELLS (BEAKER) (test 0 /100 WBC 0-0 znom=809) NEUTROPHILS RELATIVE PERCENT (BEAKER) (test 54 % ebqa=872) LYMPHOCYTES RELATIVE PERCENT (BEAKER) (test 16 % cuwf=051) MONOCYTES RELATIVE PERCENT (BEAKER) (test 10 % xqcy=283) EOSINOPHILS RELATIVE PERCENT (BEAKER) (test 18 % yyut=120) BASOPHILS RELATIVE PERCENT (BEAKER) (test 2 % qqtz=207) NEUTROPHILS ABSOLUTE COUNT (BEAKER) (test 4.70 K/ L 1.78-5.38 psza=208) LYMPHOCYTES ABSOLUTE COUNT (BEAKER) (test 1.41 K/ L 1.32-3.57 ioew=625) MONOCYTES ABSOLUTE COUNT (BEAKER) (test 0.90 K/ L 0.30-0.82 viph=071) EOSINOPHILS ABSOLUTE COUNT (BEAKER) (test 1.58 K/ L 0.04-0.54 zkhv=696) BASOPHILS ABSOLUTE COUNT (BEAKER) (test 0.16 K/ L 0.01-0.08 yxgx=813) IMMATURE GRANULOCYTES-RELATIVE PERCENT (BEAKER) 0 % 0-1 (test xcbu=2300) BASIC METABOLIC [id number] 03:38:00 Test Item Value Reference Range Comments SODIUM (BEAKER) (test 139 meq/L 136-145 dlko=369) POTASSIUM (BEAKER) (test 4.4 meq/L 3.5-5.1 efty=605) CHLORIDE (BEAKER) (test 99 meq/L 98-107 vsqn=068) CO2 (BEAKER) (test 31 meq/L 22-29 vwvn=431) BLOOD UREA NITROGEN 21 mg/dL 7-21 (BEAKER) (test gcnh=582) CREATININE (BEAKER) (test 1.22 mg/dL 0.57-1.25 cang=658) GLUCOSE RANDOM (BEAKER) 97 mg/dL 70-105 (test hudw=024) CALCIUM (BEAKER) (test 8.7 mg/dL 8.4-10.2 zygg=479) EGFR (BEAKER) (test 62 mL/min/1.73 sq m ESTIMATED GFR IS NOT gmaq=3105) ACCURATE CREATININE CLEARANCE IN PREDICTING GLOMERULAR FILTRATION RATE. ESTIMATED GFR IS NOT APPLICABLE FOR DIALYSIS PATIENTS. PROTHROMBIN [id number] 03:38:00 Test Item Value Reference Range Comments PROTIME (BEAKER) (test smdv=138) 20.7 seconds 11.9-14.2 INR (BEAKER) (test ydjq=191) 1.9 <=5.9 Effective 12/06/2018: PT Reference Range ChangeNew: 11.9-14.2 Previous: 11.7- 14.7RECOMMENDED COUMADIN/WARFARIN INR THERAPY RANGESSTANDARD DOSE: 2.0-3.0 Includes: PROPHYLAXIS for venous thrombosis, systemic embolization; TREATMENT for venous thrombosis and/or pulmonary embolus.HIGH RISK: Target INR is2.5-3.5 for patients wiht mechanical heart valves.6 hours after starting heparin infusion and as indicated per sliding scaleWithin 24 hours, if on CoumadinCT, BRAIN, WITHOUT [id number] 14:52:00FINAL REPORT CT , BRAIN, WITHOUT CONTRAST INDICATION: h/o CVA. Plan for MitralValve surgery by Dr. Martinez TECHNIQUE: Noncontrast axial imaging was obtained from the vertex to theskull base. Axial images were reconstructed using a bone algorithm. DOSE REDUCTION: Dose modulation,iterative reconstruction, and/or weight-based adjustment of the mA/kV was utilized to reduce the radiation dose to as low as reasonably achievable. COMPARISON: MRI 05/09/2019, CT 05/08/2019 FINDINGS: Intracranial: Mild generalized cerebral volume loss. Chronic multifocal infarcts within the right champion radiata. No intracranial hemorrhage or abnormal extra-axial collection. No evidence of acute territorial infarct. No mass effect. No hydrocephalus. Osseous structures: No fracture. No suspicious lesion. Paranasal sinuses and mastoid air cells: No evidence of sinusitis. Mastoids are clear. Orbital contents: Globes are intact. IMPRESSION: No acute intracranial hemorrhage or territorial infarct. If there is persistent clinical concern for intracranial pathology, MR examination is recommended for further characterization. Signed: Nicole Gutierrez Verified Date/Time: 2018 14:52:09 Electronically signed by: NICOLE GUTIERREZ MD on 2018 02:52 [id number] 14:02:00 Test Item Value Reference Range Comments PARTIAL THROMBOPLASTIN TIME (BEAKER) (test 39.0 seconds 22.5-36.0 wamq=944) Prior to initiating heparinBASIC METABOLIC [id number] 07:26:00 Test Item Value Reference Range Comments SODIUM (BEAKER) (test 138 meq/L 136-145 gpgx=812) POTASSIUM (BEAKER) (test 4.7 meq/L 3.5-5.1 tlmv=164) CHLORIDE (BEAKER) (test 99 meq/L 98-107 rmsa=153) CO2 (BEAKER) (test 32 meq/L 22-29 prhr=858) BLOOD UREA NITROGEN 19 mg/dL 7-21 (BEAKER) (test affh=903) CREATININE (BEAKER) (test 1.02 mg/dL 0.57-1.25 wotz=523) GLUCOSE RANDOM (BEAKER) 96 mg/dL 70-105 (test ktec=733) CALCIUM (BEAKER) (test 8.8 mg/dL 8.4-10.2 bmbo=581) EGFR (BEAKER) (test 77 mL/min/1.73 sq m ESTIMATED GFR IS NOT twxq=4758) ACCURATE CREATININE CLEARANCE IN PREDICTING GLOMERULAR FILTRATION RATE. ESTIMATED GFR IS NOT APPLICABLE FOR DIALYSIS PATIENTS. CBC W/PLT COUNT & AUTO [id number] 07:03:00 Test Item Value Reference Range Comments WHITE BLOOD CELL COUNT (BEAKER) (test fxdz=441) 9.1 K/ L 3.5-10.5 RED BLOOD CELL COUNT (BEAKER) (test smzu=047) 2.95 M/ L 4.63-6.08 HEMOGLOBIN (BEAKER) (test hlei=988) 8.5 GM/DL 13.7-17.5 HEMATOCRIT (BEAKER) (test enao=122) 26.3 % 40.1-51.0 MEAN CORPUSCULAR VOLUME (BEAKER) (test mdre=394) 89.2 fL 79.0-92.2 MEAN CORPUSCULAR HEMOGLOBIN (BEAKER) (test 28.8 pg 25.7-32.2 ywic=268) MEAN CORPUSCULAR HEMOGLOBIN CONC (BEAKER) (test 32.3 GM/DL 32.3-36.5 mouu=179) RED CELL DISTRIBUTION WIDTH (BEAKER) (test 13.7 % 11.6-14.4 pbfy=506) PLATELET COUNT (BEAKER) (test wzmp=039) 170 K/CU MM 150-450 MEAN PLATELET VOLUME (BEAKER) (test xjgn=840) 9.6 fL 9.4-12.4 NUCLEATED RED BLOOD CELLS (BEAKER) (test 0 /100 WBC 0-0 mzgw=088) NEUTROPHILS RELATIVE PERCENT (BEAKER) (test 61 % xpln=584) LYMPHOCYTES RELATIVE PERCENT (BEAKER) (test 12 % ohgd=295) MONOCYTES RELATIVE PERCENT (BEAKER) (test 11 % siyi=982) EOSINOPHILS RELATIVE PERCENT (BEAKER) (test 15 % kkhv=012) BASOPHILS RELATIVE PERCENT (BEAKER) (test 2 % rcjd=493) NEUTROPHILS ABSOLUTE COUNT (BEAKER) (test 5.51 K/ L 1.78-5.38 dlxm=946) LYMPHOCYTES ABSOLUTE COUNT (BEAKER) (test 1.06 K/ L 1.32-3.57 icvd=780) MONOCYTES ABSOLUTE COUNT (BEAKER) (test 0.99 K/ L 0.30-0.82 ucfm=844) EOSINOPHILS ABSOLUTE COUNT (BEAKER) (test 1.37 K/ L 0.04-0.54 mjal=467) BASOPHILS ABSOLUTE COUNT (BEAKER) (test 0.14 K/ L 0.01-0.08 uybf=222) IMMATURE GRANULOCYTES-RELATIVE PERCENT (BEAKER) 0 % 0-1 (test ropl=9490) RAD, CHEST, 1 VIEW, NON [id number] 13:54:00Reason for exam:->SOB, Pulm edemaShould this be performed at the bedside?->YesFINAL REPORT RAD, CHEST, 1 VIEW, NON DEPT INDICATION: SOB, Pulm edema COMPARISON: Prior day's exam FINDINGS: Portable frontal view of the chest. IMPRESSION: Support Lines: Stable. Lungs and pleura: Decreased airspace and pleural opacities. No pneumothorax.Heart and mediastinum: Stable contours. Stable surgical changes.Additional findings: None. Signed: Gia Staton MDReport Verified Date/Time: 06/18/2019 13:54:24 Reading Location: [facility] Radiology Reading [facility] METABOLIC [id number] 05:34:00 Test Item Value Reference Range Comments SODIUM (BEAKER) (test 140 meq/L 136-145 unom=219) POTASSIUM (BEAKER) (test 3.7 meq/L 3.5-5.1 laps=887) CHLORIDE (BEAKER) (test 96 meq/L 98-107 ftvt=886) CO2 (BEAKER) (test 36 meq/L 22-29 qpjz=843) BLOOD UREA NITROGEN 16 mg/dL 7-21 (BEAKER) (test agbr=802) CREATININE (BEAKER) (test 1.13 mg/dL 0.57-1.25 nsvv=178) GLUCOSE RANDOM (BEAKER) 100 mg/dL 70-105 (test otob=993) CALCIUM (BEAKER) (test 8.3 mg/dL 8.4-10.2 clzo=078) EGFR (BEAKER) (test 68 mL/min/1.73 sq m ESTIMATED GFR IS NOT exzl=4656) ACCURATE CREATININE CLEARANCE IN PREDICTING GLOMERULAR FILTRATION RATE. ESTIMATED GFR IS NOT APPLICABLE FOR DIALYSIS PATIENTS. CBC W/PLT COUNT & AUTO [id number] 05:04:00 Test Item Value Reference Range Comments WHITE BLOOD CELL COUNT (BEAKER) (test pryx=002) 9.9 K/ L 3.5-10.5 RED BLOOD CELL COUNT (BEAKER) (test wpyf=242) 2.92 M/ L 4.63-6.08 HEMOGLOBIN (BEAKER) (test ofgf=179) 8.5 GM/DL 13.7-17.5 HEMATOCRIT (BEAKER) (test moeo=240) 26.1 % 40.1-51.0 MEAN CORPUSCULAR VOLUME (BEAKER) (test xzmn=746) 89.4 fL 79.0-92.2 MEAN CORPUSCULAR HEMOGLOBIN (BEAKER) (test 29.1 pg 25.7-32.2 wtni=481) MEAN CORPUSCULAR HEMOGLOBIN CONC (BEAKER) (test 32.6 GM/DL 32.3-36.5 nvqy=178) RED CELL DISTRIBUTION WIDTH (BEAKER) (test 13.9 % 11.6-14.4 cpqr=523) PLATELET COUNT (BEAKER) (test itho=011) 162 K/CU MM 150-450 MEAN PLATELET VOLUME (BEAKER) (test zfeu=536) 9.6 fL 9.4-12.4 NUCLEATED RED BLOOD CELLS (BEAKER) (test 0 /100 WBC 0-0 lerd=582) NEUTROPHILS RELATIVE PERCENT (BEAKER) (test 64 % gfdv=913) LYMPHOCYTES RELATIVE PERCENT (BEAKER) (test 11 % qbzu=772) MONOCYTES RELATIVE PERCENT (BEAKER) (test 11 % reqz=080) EOSINOPHILS RELATIVE PERCENT (BEAKER) (test 13 % pdlv=168) BASOPHILS RELATIVE PERCENT (BEAKER) (test 1 % vogt=936) NEUTROPHILS ABSOLUTE COUNT (BEAKER) (test 6.33 K/ L 1.78-5.38 dcfq=647) LYMPHOCYTES ABSOLUTE COUNT (BEAKER) (test 1.09 K/ L 1.32-3.57 iicv=859) MONOCYTES ABSOLUTE COUNT (BEAKER) (test 1.07 K/ L 0.30-0.82 exdq=053) EOSINOPHILS ABSOLUTE COUNT (BEAKER) (test 1.26 K/ L 0.04-0.54 qztc=660) BASOPHILS ABSOLUTE COUNT (BEAKER) (test 0.13 K/ L 0.01-0.08 hgbk=655) IMMATURE GRANULOCYTES-RELATIVE PERCENT (BEAKER) 0 % 0-1 (test xxog=0615) [id number] 09:14:00 Test Item Value Reference Range Comments MAGNESIUM (BEAKER) (test paza=580) 1.8 mg/dL 1.6-2.6 BASIC METABOLIC [id number] 06:19:00 Test Item Value Reference Range Comments SODIUM (BEAKER) (test 140 meq/L 136-145 arpn=907) POTASSIUM (BEAKER) (test 3.2 meq/L 3.5-5.1 glcb=681) CHLORIDE (BEAKER) (test 94 meq/L 98-107 igbx=287) CO2 (BEAKER) (test 35 meq/L 22-29 xsjh=403) BLOOD UREA NITROGEN 14 mg/dL 7-21 (BEAKER) (test cigz=290) CREATININE (BEAKER) (test 1.16 mg/dL 0.57-1.25 lypl=712) GLUCOSE RANDOM (BEAKER) 107 mg/dL 70-105 (test rhju=056) CALCIUM (BEAKER) (test 8.3 mg/dL 8.4-10.2 mkax=553) EGFR (BEAKER) (test 66 mL/min/1.73 sq m ESTIMATED GFR IS NOT jjdp=8388) ACCURATE CREATININE CLEARANCE IN PREDICTING GLOMERULAR FILTRATION RATE. ESTIMATED GFR IS NOT APPLICABLE FOR DIALYSIS PATIENTS. Specimen slightly ictericCBC W/PLT COUNT & AUTO [id number] 04:59 :00 Test Item Value Reference Range Comments WHITE BLOOD CELL COUNT (BEAKER) (test hkuj=259) 9.7 K/ L 3.5-10.5 RED BLOOD CELL COUNT (BEAKER) (test beip=083) 3.13 M/ L 4.63-6.08 HEMOGLOBIN (BEAKER) (test btvc=801) 9.0 GM/DL 13.7-17.5 HEMATOCRIT (BEAKER) (test wunf=301) 27.8 % 40.1-51.0 MEAN CORPUSCULAR VOLUME (BEAKER) (test jxcq=470) 88.8 fL 79.0-92.2 MEAN CORPUSCULAR HEMOGLOBIN (BEAKER) (test 28.8 pg 25.7-32.2 bkaq=460) MEAN CORPUSCULAR HEMOGLOBIN CONC (BEAKER) (test 32.4 GM/DL 32.3-36.5 uhyp=425) RED CELL DISTRIBUTION WIDTH (BEAKER) (test 14.2 % 11.6-14.4 xywk=496) PLATELET COUNT (BEAKER) (test nwpl=337) 156 K/CU MM 150-450 MEAN PLATELET VOLUME (BEAKER) (test hlnv=079) 9.4 fL 9.4-12.4 NUCLEATED RED BLOOD CELLS (BEAKER) (test 0 /100 WBC 0-0 zbvq=110) NEUTROPHILS RELATIVE PERCENT (BEAKER) (test 66 % xtzv=867) LYMPHOCYTES RELATIVE PERCENT (BEAKER) (test 12 % dsnr=712) MONOCYTES RELATIVE PERCENT (BEAKER) (test 12 % iwco=540) EOSINOPHILS RELATIVE PERCENT (BEAKER) (test 9 % egkd=674) BASOPHILS RELATIVE PERCENT (BEAKER) (test 1 % jtdg=745) NEUTROPHILS ABSOLUTE COUNT (BEAKER) (test 6.36 K/ L 1.78-5.38 dizr=546) LYMPHOCYTES ABSOLUTE COUNT (BEAKER) (test 1.20 K/ L 1.32-3.57 uimx=926) MONOCYTES ABSOLUTE COUNT (BEAKER) (test 1.13 K/ L 0.30-0.82 bsjh=926) EOSINOPHILS ABSOLUTE COUNT (BEAKER) (test 0.86 K/ L 0.04-0.54 yjtk=159) BASOPHILS ABSOLUTE COUNT (BEAKER) (test 0.12 K/ L 0.01-0.08 pefz=365) IMMATURE GRANULOCYTES-RELATIVE PERCENT (BEAKER) 0 % 0-1 (test ywsa=7417) BASIC METABOLIC [id number] 09:21:00 Test Item Value Reference Range Comments SODIUM (BEAKER) (test 138 meq/L 136-145 kzsj=778) POTASSIUM (BEAKER) (test 3.5 meq/L 3.5-5.1 qnvo=535) CHLORIDE (BEAKER) (test 101 meq/L 98-107 zyhn=582) CO2 (BEAKER) (test 33 meq/L 22-29 hnqj=793) BLOOD UREA NITROGEN 14 mg/dL 7-21 (BEAKER) (test nyti=080) CREATININE (BEAKER) (test 1.07 mg/dL 0.57-1.25 asij=362) GLUCOSE RANDOM (BEAKER) 96 mg/dL 70-105 (test rtpk=167) CALCIUM (BEAKER) (test 7.9 mg/dL 8.4-10.2 ycmd=638) EGFR (BEAKER) (test 73 mL/min/1.73 sq m ESTIMATED GFR IS NOT jqyg=0178) ACCURATE CREATININE CLEARANCE IN PREDICTING GLOMERULAR FILTRATION RATE. ESTIMATED GFR IS NOT APPLICABLE FOR DIALYSIS PATIENTS. RAD, CHEST, 1 VIEW, NON [id number] 07:08:00Reason for exam:-> dyspneaShould this be performed at the bedside?->YesFINAL REPORT RAD, CHEST, 1 VIEW, NON DEPT INDICATION: dyspnea COMPARISON: June 14, 2019 FINDINGS: Portable frontal view of the chest. IMPRESSION: Support Lines: Stable right PICC. Lungs and pleura: Worsening interstitial and alveolar edema. No pneumothorax.Heart and mediastinum: Stable contours. Additional findings: None. Signed: JR Phan Robert MDReport VerifiedDate/Time: 06/16/2019 07:08:13 Reading Location: [address] Neuro Reading Room CBC W/PLT COUNT & AUTO [id number] 06:42:00 Test Item Value Reference Range Comments WHITE BLOOD CELL COUNT (BEAKER) (test dosj=697) 11.5 K/ L 3.5-10.5 RED BLOOD CELL COUNT (BEAKER) (test qysf=113) 2.94 M/ L 4.63-6.08 HEMOGLOBIN (BEAKER) (test myhl=644) 8.6 GM/DL 13.7-17.5 HEMATOCRIT (BEAKER) (test ufsw=678) 26.8 % 40.1-51.0 MEAN CORPUSCULAR VOLUME (BEAKER) (test grga=875) 91.2 fL 79.0-92.2 MEAN CORPUSCULAR HEMOGLOBIN (BEAKER) (test 29.3 pg 25.7-32.2 rjim=872) MEAN CORPUSCULAR HEMOGLOBIN CONC (BEAKER) (test 32.1 GM/DL 32.3-36.5 lday=578) RED CELL DISTRIBUTION WIDTH (BEAKER) (test 14.1 % 11.6-14.4 mkat=568) PLATELET COUNT (BEAKER) (test bqms=092) 136 K/CU MM 150-450 MEAN PLATELET VOLUME (BEAKER) (test phes=418) 10.0 fL 9.4-12.4 NUCLEATED RED BLOOD CELLS (BEAKER) (test 0 /100 WBC 0-0 dmvz=456) NEUTROPHILS RELATIVE PERCENT (BEAKER) (test 70 % ruit=654) LYMPHOCYTES RELATIVE PERCENT (BEAKER) (test 10 % mgma=001) MONOCYTES RELATIVE PERCENT (BEAKER) (test 11 % ehvs=074) EOSINOPHILS RELATIVE PERCENT (BEAKER) (test 7 % htly=289) BASOPHILS RELATIVE PERCENT (BEAKER) (test 1 % bpoo=735) NEUTROPHILS ABSOLUTE COUNT (BEAKER) (test 8.11 K/ L 1.78-5.38 xcdw=377) LYMPHOCYTES ABSOLUTE COUNT (BEAKER) (test 1.11 K/ L 1.32-3.57 gtja=810) MONOCYTES ABSOLUTE COUNT (BEAKER) (test 1.32 K/ L 0.30-0.82 syui=394) EOSINOPHILS ABSOLUTE COUNT (BEAKER) (test 0.83 K/ L 0.04-0.54 xmiy=603) BASOPHILS ABSOLUTE COUNT (BEAKER) (test 0.11 K/ L 0.01-0.08 qdfw=993) IMMATURE GRANULOCYTES-RELATIVE PERCENT (BEAKER) 0 % 0-1 (test fnqn=3481) CT, [id number] 13:23:00FINAL REPORT CT abdomen and pelvis with contrast History: Upper abdominal pain Comparison: 06/05/2019 Technique: serial axial imaging was performed following up to 100cc of non ionic iodinated intravenous contrast as per departmental protocol. Multiplanar images are reconstructed and reviewed when indicated. This CT examination is performed using one or more of the followingdose reduction techniques: Automated exposure control, adjustment of the mA and /or kV according to patient size, and/or use of iterative reconstruction technique. Findings: Small bilateral pleural effusions. Partial visualization of left lower lobe airspace disease. Unremarkable appearance of pancreas and spleen. Unremarkable appearance of liver and gallbladder. Interval resolution of previous bilateral hydronephrosis. No renal mass is appreciated. 8 mm cyst within the inferior left kidney appears unchanged. Again seen are changes of previous cystoprostatectomy with neobladder creation. Air isseen within the left renal collecting system, which probably reflects recent intervention. . Nosmall or large bowel obstruction. No apparent bowel wall thickening. No findings to indicate acuteappendicitis. A small amount of free fluid is seen within the right paracolic gutter. No lymphadenopathy is appreciated. No abdominal aortic aneurysm. A small fat-containing umbilical hernia is noted. No aggressive osseous lesion. Impression: 1. Interval resolution of previous bilateral hydronephrosis.2. A small amount of air is seen within the left renal collecting system, which may reflect recent urinary tract intervention. Suggest clinical correlation. Otherwise, a urinalysis may be obtainedto exclude the possibility of urinary tract infection.3. Small bilateral pleural effusions.4. Partial visualization of left lower lobe airspace disease, suggesting recent pneumonia.5. Status post cystoprostatectomy with neobladder creation. Signed: Adan Talley MDReport Verified Date/Time: 06/15/2019 13:23:41 Reading Location: [facility] Radiology Reading Room HEPATIC FUNCTION [id number] 07:25:00 Test Item Value Reference Range Comments TOTAL PROTEIN (BEAKER) (test yczh=955) 4.8 gm/dL 6.0-8.3 ALBUMIN (BEAKER) (test iqsn=3083) 2.6 g/dL 3.5-5.0 BILIRUBIN TOTAL (BEAKER) (test kclw=711) 1.2 mg/dL 0.2-1.2 BILIRUBIN DIRECT (BEAKER) (test vvcg=086) 0.6 mg/dL 0.1-0.5 ALKALINE PHOSPHATASE (BEAKER) (test bbkg=612) 95 U/L 40-150 AST (SGOT) (BEAKER) (test bsxt=104) 18 U/L 5-34 ALT (SGPT) (BEAKER) (test bvsb=171) 9 U/L 6-55 BASIC METABOLIC [id number] 07:25:00 Test Item Value Reference Range Comments SODIUM (BEAKER) (test 142 meq/L 136-145 kzie=454) POTASSIUM (BEAKER) (test 3.2 meq/L 3.5-5.1 mmog=560) CHLORIDE (BEAKER) (test 107 meq/L 98-107 hriv=581) CO2 (BEAKER) (test 30 meq/L 22-29 sbgq=374) BLOOD UREA NITROGEN 13 mg/dL 7-21 (BEAKER) (test qqfh=812) CREATININE (BEAKER) (test 0.91 mg/dL 0.57-1.25 bvsh=247) GLUCOSE RANDOM (BEAKER) 98 mg/dL 70-105 (test klxs=802) CALCIUM (BEAKER) (test 7.6 mg/dL 8.4-10.2 xitp=270) EGFR (BEAKER) (test 87 mL/min/1.73 sq m ESTIMATED GFR IS NOT uwgo=0406) ACCURATE CREATININE CLEARANCE IN PREDICTING GLOMERULAR FILTRATION RATE. ESTIMATED GFR IS NOT APPLICABLE FOR DIALYSIS PATIENTS. TROPONIN [id number] 07:09:00 Test Item Value Reference Range Comments TROPONIN I (BEAKER) (test yvrx=773) 0.03 ng/mL 0.00-0.03 Troponin I (TnI) levels must [...] failure, acidosis, acute neurological disease, and persistent tachyarrhythmia.CBC W/PLT COUNT & AUTO [id number] 07:06:00 Test Item Value Reference Range Comments WHITE BLOOD CELL COUNT (BEAKER) (test kxav=257) 9.5 K/ L 3.5-10.5 RED BLOOD CELL COUNT (BEAKER) (test yrbd=502) 2.84 M/ L 4.63-6.08 HEMOGLOBIN (BEAKER) (test uyip=288) 8.4 GM/DL 13.7-17.5 HEMATOCRIT (BEAKER) (test brsl=113) 25.7 % 40.1-51.0 MEAN CORPUSCULAR VOLUME (BEAKER) (test jyrt=137) 90.5 fL 79.0-92.2 MEAN CORPUSCULAR HEMOGLOBIN (BEAKER) (test 29.6 pg 25.7-32.2 dgql=025) MEAN CORPUSCULAR HEMOGLOBIN CONC (BEAKER) (test 32.7 GM/DL 32.3-36.5 lwpn=120) RED CELL DISTRIBUTION WIDTH (BEAKER) (test 14.2 % 11.6-14.4 mdmi=957) PLATELET COUNT (BEAKER) (test jhzi=909) 119 K/CU MM 150-450 MEAN PLATELET VOLUME (BEAKER) (test suni=501) 10.0 fL 9.4-12.4 NUCLEATED RED BLOOD CELLS (BEAKER) (test 0 /100 WBC 0-0 woop=277) NEUTROPHILS RELATIVE PERCENT (BEAKER) (test 67 % inwu=722) LYMPHOCYTES RELATIVE PERCENT (BEAKER) (test 12 % eeia=932) MONOCYTES RELATIVE PERCENT (BEAKER) (test 11 % faxi=994) EOSINOPHILS RELATIVE PERCENT (BEAKER) (test 9 % civj=876) BASOPHILS RELATIVE PERCENT (BEAKER) (test 1 % hihs=697) NEUTROPHILS ABSOLUTE COUNT (BEAKER) (test 6.30 K/ L 1.78-5.38 ecuj=259) LYMPHOCYTES ABSOLUTE COUNT (BEAKER) (test 1.13 K/ L 1.32-3.57 qoln=677) MONOCYTES ABSOLUTE COUNT (BEAKER) (test 1.08 K/ L 0.30-0.82 ggzs=674) EOSINOPHILS ABSOLUTE COUNT (BEAKER) (test 0.83 K/ L 0.04-0.54 krev=121) BASOPHILS ABSOLUTE COUNT (BEAKER) (test 0.10 K/ L 0.01-0.08 eqox=735) IMMATURE GRANULOCYTES-RELATIVE PERCENT (BEAKER) 0 % 0-1 (test vmwq=3403) TROPONIN [id number] 23:55:00 Test Item Value Reference Range Comments TROPONIN I (BEAKER) (test pzyr=318) 0.03 ng/mL 0.00-0.03 Troponin I (TnI) levels must [...] failure, acidosis, acute neurological disease, and persistent tachyarrhythmia.[id number] 23:42:00 Test Item Value Reference Range Comments POTASSIUM (BEAKER) (test rund=541) 3.1 meq/L 3.5-5.1 POCT-LACTIC ACID, [id number] 19:09:00 Test Item Value Reference Range Comments POC-LACTIC ACID, VENOUS 1.0 mmol/L 0.9-1.[address] [facility] [address] [facility] (BEAKER) (test rvup=0969) [facility] [address] TROPONIN [id number] 14:51:00 Test Item Value Reference Range Comments TROPONIN I (BEAKER) (test zzhu=584) 0.04 ng/mL 0.00-0.03 Troponin I (TnI) levels must [...] failure, acidosis, acute neurological disease, and persistent tachyarrhythmia.[id number] 14:45:00 Test Item Value Reference Range Comments MAGNESIUM (BEAKER) (test mroj=523) 1.8 mg/dL 1.6-2.6 BASIC METABOLIC [id number] 14:45:00 Test Item Value Reference Range Comments SODIUM (BEAKER) (test 139 meq/L 136-145 dkva=046) POTASSIUM (BEAKER) (test 2.8 meq/L 3.5-5.1 qloe=560) CHLORIDE (BEAKER) (test 104 meq/L 98-107 orvl=547) CO2 (BEAKER) (test 28 meq/L 22-29 vfei=043) BLOOD UREA NITROGEN 12 mg/dL 7-21 (BEAKER) (test bdgm=873) CREATININE (BEAKER) (test 0.94 mg/dL 0.57-1.25 ljvv=816) GLUCOSE RANDOM (BEAKER) 102 mg/dL 70-105 (test xgfi=389) CALCIUM (BEAKER) (test 8.3 mg/dL 8.4-10.2 oxvi=743) EGFR (BEAKER) (test 84 mL/min/1.73 sq m ESTIMATED GFR IS NOT cqwo=3150) ACCURATE CREATININE CLEARANCE IN PREDICTING GLOMERULAR FILTRATION RATE. ESTIMATED GFR IS NOT APPLICABLE FOR DIALYSIS PATIENTS. [id number] 14:39:00 Test Item Value Reference Range Comments PROTIME (BEAKER) (test vafj=062) 22.5 seconds 11.9-14.2 INR (BEAKER) (test wyoo=608) 2.1 <=5.9 PARTIAL THROMBOPLASTIN TIME (BEAKER) (test 42.2 seconds 22.5-36.0 bute=090) Effective 12/06/2018: PT Reference Range ChangeNew: 11.9-14.2 Previous: 11.7- 14.7RECOMMENDED COUMADIN/WARFARIN INR THERAPY RANGESSTANDARD DOSE: 2.0-3.0 Includes: PROPHYLAXIS for venous thrombosis, systemic embolization; TREATMENT for venous thrombosis and/or pulmonary embolus.HIGH RISK: Target INR is2.5-3.5 for patients wiht mechanical heart valves.RAD, CHEST, 1 VIEW, NON [id number] 14:35:00Reason for exam:->CHEST PAINFINAL REPORT INDICATION: CHEST PAIN COMPARISON: May 18, 2019 TECHNIQUE: Single frontal view of the chest. IMPRESSION: Lungs and pleura: Congestive changes may reflect either aspiration, developing edema or atypical infection in the appropriate clinical context. No effusion.Heart and mediastinum: Normal heart size. Unremarkable mediastinal contours.Osseous structures: No acute abnormality.Other : None. Signed: JR Phan Robert MDReport Verified Date/Time: 201814:35:41 Reading Location: [facility] Radiology Reading Room CBC W/ PLT COUNT & AUTO [id number] 14:34:00 Test Item Value Reference Range Comments WHITE BLOOD CELL COUNT (BEAKER) (test asin=264) 10.5 K/ L 3.5-10.5 RED BLOOD CELL COUNT (BEAKER) (test yykz=451) 3.35 M/ L 4.63-6.08 HEMOGLOBIN (BEAKER) (test gerl=165) 9.7 GM/DL 13.7-17.5 HEMATOCRIT (BEAKER) (test jqen=131) 30.3 % 40.1-51.0 MEAN CORPUSCULAR VOLUME (BEAKER) (test kwxb=361) 90.4 fL 79.0-92.2 MEAN CORPUSCULAR HEMOGLOBIN (BEAKER) (test 29.0 pg 25.7-32.2 rkgv=773) MEAN CORPUSCULAR HEMOGLOBIN CONC (BEAKER) (test 32.0 GM/DL 32.3-36.5 byql=132) RED CELL DISTRIBUTION WIDTH (BEAKER) (test 14.1 % 11.6-14.4 wiuv=027) PLATELET COUNT (BEAKER) (test eryk=728) 125 K/CU MM 150-450 MEAN PLATELET VOLUME (BEAKER) (test nkbi=957) 9.3 fL 9.4-12.4 NUCLEATED RED BLOOD CELLS (BEAKER) (test 0 /100 WBC 0-0 tqsx=417) NEUTROPHILS RELATIVE PERCENT (BEAKER) (test 77 % coev=598) LYMPHOCYTES RELATIVE PERCENT (BEAKER) (test 9 % cokp=734) MONOCYTES RELATIVE PERCENT (BEAKER) (test 9 % rglu=283) EOSINOPHILS RELATIVE PERCENT (BEAKER) (test 3 % xkyb=803) BASOPHILS RELATIVE PERCENT (BEAKER) (test 1 % vlgg=326) NEUTROPHILS ABSOLUTE COUNT (BEAKER) (test 8.05 K/ L 1.78-5.38 ebiq=458) LYMPHOCYTES ABSOLUTE COUNT (BEAKER) (test 0.97 K/ L 1.32-3.57 klwe=170) MONOCYTES ABSOLUTE COUNT (BEAKER) (test 0.95 K/ L 0.30-0.82 ghld=977) EOSINOPHILS ABSOLUTE COUNT (BEAKER) (test 0.36 K/ L 0.04-0.54 aont=168) BASOPHILS ABSOLUTE COUNT (BEAKER) (test 0.13 K/ L 0.01-0.08 cfju=191) IMMATURE GRANULOCYTES-RELATIVE PERCENT (BEAKER) 0 % 0-1 (test cvyr=1685) STOOL CULTURE + SHIGA [id number] 09:17:00 Test Item Value Reference Range Comments CULTURE (BEAKER) (test No Salmonella, Shigella or bguj=6222) Campylobacter isolated STOOL PATH [id number] 16:00:00 Test Item Value Reference Range Comments PATHOGEN EXAM CHARGED (BEAKER) (test fasw=8999) Done URINALYSIS W/ REFLEX URINE [id number] 07:10:00 Test Item Value Reference Range Comments COLOR (BEAKER) (test ugdc=749) Light Yellow CLARITY (BEAKER) (test hqaj=652) Hazy SPECIFIC GRAVITY UA (BEAKER) (test omia=921) 1.020 1.001-1.035 PH UA (BEAKER) (test gsnf=054) 5.5 5.0-8.0 PROTEIN UA (BEAKER) (test kafa=471) 50 mg/dL Negative GLUCOSE UA (BEAKER) (test uyxm=491) Negative Negative KETONES UA (BEAKER) (test liil=619) Trace Negative BILIRUBIN UA (BEAKER) (test omrk=511) Negative Negative BLOOD UA (BEAKER) (test vlhh=996) Small Negative NITRITE UA (BEAKER) (test qskc=166) Negative Negative LEUKOCYTE ESTERASE UA (BEAKER) (test irwo=108) Negative Negative UROBILINOGEN UA (BEAKER) (test xmya=609) 0.2 mg/dL 0.2-1.0 RBC UA (BEAKER) (test cgsp=750) 46 /HPF WBC UA (BEAKER) (test dkvx=244) 26 /HPF MUCUS (BEAKER) (test vgph=1611) Rare AMORPHOUS CRYSTALS (BEAKER) (test ciir=8398) Few SOURCE(BEAKER) (test gdma=1870) CT, [id number] 02:56:00FINAL REPORT CLINICAL HISTORY: Abdominal pain, acute, nonlocalized FINDINGS:Multiple axial images of the abdomen and pelvis were performed after the uncomplicated administration of IV contrast. Oral contrast was not given. This exam was performed according to our departmentaldose-optimization program, which includes automated exposure control, adjustment of the mA and/or kVaccording to patient size and/or use of the iterative reconstruction technique. Comparison: 06/03/2019 Lower chest: Clear lungs. No pleural effusion or pneumothorax. Visualized cardiac contours normal.Liver: No significant findings. Gallbladder and biliary tree: No significant findings. Spleen: No significant findings. Adrenal Glands: No significant findings. Kidneys and ureters: Redemonstrated mildto moderate bilateral hydronephrosis and hydroureter Stomach and Duodenum: No significant findings. Pancreas: No significant findings. Bowel: No significant findings. Appendix: Normal. Bladder: Previous cystectomy and neobladder formation. There is redemonstrated distention of the neobladder. Major vascular structures : No significant findings. Reproductive organs: Previous prostatectomy Other: Stable prominence iliac and left inguinal lymph nodes. New trace ascites in the dependent lateral abdomen. Skeleton: No acute bony abnormality. IMPRESSION: There is redemonstrated significant distention of the neobladder and bilateral hydronephrosis and hydroureter. Please correlate for neobladder outletobstruction. New trace volume ascites, nonspecific. Signed: Danny Mccurdy MDReport Verified Date/Time: 06/05/2019 02:56:29 VANCOMYCIN LEVEL, [id number] 18:39:00 Test Item Value Reference Range Comments VANCOMYCIN TROUGH (BEAKER) (test biap=309) 9.9 ug/mL 10.0-20.0 Draw immediately prior to next vancomycin dose.HEMOGLOBIN AND [id number] 16:19:00 Test Item Value Reference Range Comments HEMOGLOBIN (BEAKER) (test jyvk=764) 10.3 GM/DL 13.7-17.5 HEMATOCRIT (BEAKER) (test lrxx=607) 30.8 % 40.1-51.0 SHIGA TOXIN [id number] 15:20:00 Test Item Value Reference Range Comments SHIGA TOXIN 1 (BEAKER) (test jyer=3108) Not detected Not detected SHIGA TOXIN 2 (BEAKER) (test dwgc=7460) Not detected Not detected BASIC METABOLIC [id number] 04:25:00 Test Item Value Reference Range Comments SODIUM (BEAKER) (test 140 meq/L 136-145 vncg=572) POTASSIUM (BEAKER) (test 3.7 meq/L 3.5-5.1 usdl=084) CHLORIDE (BEAKER) (test 111 meq/L 98-107 rbxc=605) CO2 (BEAKER) (test 24 meq/L 22-29 uadi=599) BLOOD UREA NITROGEN 14 mg/dL 7-21 (BEAKER) (test nksf=847) CREATININE (BEAKER) (test 0.98 mg/dL 0.57-1.25 pwpw=067) GLUCOSE RANDOM (BEAKER) 98 mg/dL 70-105 (test jiio=594) CALCIUM (BEAKER) (test 8.0 mg/dL 8.4-10.2 rowz=779) EGFR (BEAKER) (test 80 mL/min/1.73 sq m ESTIMATED GFR IS NOT iwrr=8576) ACCURATE CREATININE CLEARANCE IN PREDICTING GLOMERULAR FILTRATION RATE. ESTIMATED GFR IS NOT APPLICABLE FOR DIALYSIS PATIENTS. CBC (HEMOGRAM ONLY)2019-06-04 03:29:00 Test Item Value Reference Range Comments WHITE BLOOD CELL COUNT (BEAKER) (test cfki=242) 5.8 K/ L 3.5-10.5 RED BLOOD CELL COUNT (BEAKER) (test accu=761) 3.40 M/ L 4.63-6.08 HEMOGLOBIN (BEAKER) (test ldgn=072) 9.9 GM/DL 13.7-17.5 HEMATOCRIT (BEAKER) (test xapq=982) 30.6 % 40.1-51.0 MEAN CORPUSCULAR VOLUME (BEAKER) (test uzwn=295) 90.0 fL 79.0-92.2 MEAN CORPUSCULAR HEMOGLOBIN (BEAKER) (test 29.1 pg 25.7-32.2 nzdr=438) MEAN CORPUSCULAR HEMOGLOBIN CONC (BEAKER) (test 32.4 GM/DL 32.3-36.5 vphp=134) RED CELL DISTRIBUTION WIDTH (BEAKER) (test 13.5 % 11.6-14.4 zjkz=211) PLATELET COUNT (BEAKER) (test rerl=893) 90 K/CU MM 150-450 MEAN PLATELET VOLUME (BEAKER) (test pusa=286) 9.6 fL 9.4-12.4 NUCLEATED RED BLOOD CELLS (BEAKER) (test 0 /100 WBC 0-0 uomi=830) URINALYSIS W/ REFLEX URINE [id number] 22:10:00 Test Item Value Reference Range Comments COLOR (BEAKER) (test vary=778) Yellow CLARITY (BEAKER) (test pcbs=538) Hazy SPECIFIC GRAVITY UA (BEAKER) (test ylpy=361) 1.019 1.001-1.035 PH UA (BEAKER) (test cfyf=531) 6.5 5.0-8.0 PROTEIN UA (BEAKER) (test aeug=068) 70 mg/dL Negative GLUCOSE UA (BEAKER) (test rzxp=089) Negative Negative KETONES UA (BEAKER) (test cgfy=081) Negative Negative BILIRUBIN UA (BEAKER) (test yusb=650) Negative Negative BLOOD UA (BEAKER) (test gflc=066) Moderate Negative NITRITE UA (BEAKER) (test nrkk=748) Negative Negative LEUKOCYTE ESTERASE UA (BEAKER) (test qndr=787) Negative Negative UROBILINOGEN UA (BEAKER) (test ieeb=770) 0.2 mg/dL 0.2-1.0 RBC UA (BEAKER) (test jqfr=090) 8 /HPF WBC UA (BEAKER) (test dfrz=523) 41 /HPF MUCUS (BEAKER) (test vkup=5806) Rare SQUAMOUS EPITHELIAL (BEAKER) (test paai=669) 1 /HPF HYALINE CASTS (BEAKER) (test teup=656) 3 /LPF SOURCE(BEAKER) (test thkz=2706) C. DIFFICILE GDH [id number] 15:10:00 Test Item Value Reference Range Comments CDT TOXIN (test Positive Negative mbdw=[id number]) CDT GDH ANTIGEN (test Positive Negative Confirms Clostridium egcr=[id number]) difficile-associated infection.First line therapy - oral Vancomycin. Continue enteric isolation until 72 hours after treatment is discontinued and symptoms have resolved. Testing performed by [employer] Rapid [employer]ette Assay. For GDH, published sensitivity of the assay is 98.7% compared to cytotoxicity testing. For Toxin AB, published sensitivity is 87.8% and specificity 99.4% compared to cytotoxicity testing.Verification of kit performance was done by the [facility] Microbiology Lab prior to clinical use.CT, [id number] 14:48:00Reason for exam:->MELENAWhat is the patient's sedation requirement?->No SedationFINAL REPORT TECHNIQUE: CT of the abdomen and pelvis WITH intravenous contrast and WITHOUT oral contrast. Dose modulation, iterative reconstruction, and/or weight-based adjustment of the mA/kV was utilized to reduce the radiation dose to as low as reasonably achievable. INDICATION: 53-year-old man with melena. COMPARISON: Chest, abdomen, and pelvis CT 05/29/2019. FINDINGS: LOWER THORAX: Unremarkable. HEPATOBILIARY: No focal hepatic lesions. Gallbladder is unremarkable. No biliary ductal dilatation.SPLEEN: No splenomegaly.PANCREAS: No focal masses or ductal dilatation. ADRENALS: No adrenal nodules.KIDNEYS/URETERS: New mild bilateral hydroureteronephrosis.PELVIC ORGANS/BLADDER: Prior cystoprostatectomy with neobladder formation. Increased distention of the neobladder. PERITONEUM/ RETROPERITONEUM: Unchanged omental and mesenteric nodules. No free fluid or free air.LYMPH NODES: Prior bilateral pelvic lymphadenectomies. No significant change in prominent mesenteric and left external iliac lymph nodes which measure up to 1.2 cm. No significant change in size of the left inguinal lymph nodes which measure up to 1 cm.VESSELS: Unremarkable. GI TRACT: Apparent mildly thickened wall of the rectum with minimal pararectal fat stranding. No bowel obstruction. Normal appendix. BONES AND SOFT TISSUES: Unremarkable. IMPRESSION: Apparent mildly thickened rectal wall may be artifactual from underdistention. Proctitis cannot be excluded. No bowel obstruction. Increased distention of theneobladder with new mild bilateral hydronephrosis. These findings are nonspecific and may be seen inthe setting of bladder outlet obstruction. Unchanged abdominopelvic lymphadenopathy and peritoneal metastases. Signed: Rohan Salvador MDReport Verified Date/Time: 06/03/2019 14:48:20 Reading Location: [place] [id number] CT Body Reading Room TROPONIN [id number] 12:50:00 Test Item Value Reference Range Comments TROPONIN I (BEAKER) (test rhfg=507) 0.03 ng/mL 0.00-0.03 Troponin I (TnI) levels must [...] failure, acidosis, acute neurological disease, and persistent tachyarrhythmia.HEPATIC FUNCTION [id number] 12:44: 00 Test Item Value Reference Range Comments TOTAL PROTEIN (BEAKER) (test fmon=526) 6.8 gm/dL 6.0-8.3 ALBUMIN (BEAKER) (test uiyz=2023) 4.0 g/dL 3.5-5.0 BILIRUBIN TOTAL (BEAKER) (test lyja=428) 1.4 mg/dL 0.2-1.2 BILIRUBIN DIRECT (BEAKER) (test tann=644) 0.6 mg/dL 0.1-0.5 ALKALINE PHOSPHATASE (BEAKER) (test rpdg=845) 139 U/L 40-150 AST (SGOT) (BEAKER) (test torn=807) 27 U/L 5-34 ALT (SGPT) (BEAKER) (test srkt=789) 21 U/L 6-55 [id number] 12:44:00 Test Item Value Reference Range Comments PHOSPHORUS (BEAKER) (test jpna=729) 2.6 mg/dL 2.3-4.7 [id number] 12:44:00 Test Item Value Reference Range Comments MAGNESIUM (BEAKER) (test tslw=790) 1.8 mg/dL 1.6-2.6 CREATINE KINASE (CK)2019-06-03 12:44:00 Test Item Value Reference Range Comments CREATINE KINASE TOTAL (BEAKER) (test hwug=636) 40 U/L 29-200 [id number] 12:44:00 Test Item Value Reference Range Comments LIPASE (BEAKER) (test dibs=637) 24 U/L 8-78 B-TYPE NATRIURETIC FACTOR (BNP)2019-06-03 12:16:00 Test Item Value Reference Range Comments B-TYPE NATRIURETIC PEPTIDE (BEAKER) (test vydk=946) 29 pg/mL 0-100 [id number] 11:54:00 Test Item Value Reference Range Comments PROTIME (BEAKER) (test wsne=648) 22.8 seconds 11.9-14.2 INR (BEAKER) (test ierx=654) 2.1 <=5.9 PARTIAL THROMBOPLASTIN TIME (BEAKER) (test 34.9 seconds 22.5-36.0 raqf=928) Effective 12/06/2018: PT Reference Range ChangeNew: 11.9-14.2 Previous: 11.7- 14.7RECOMMENDED COUMADIN/WARFARIN INR THERAPY RANGESSTANDARD DOSE: 2.0-3.0 Includes: PROPHYLAXIS for venous thrombosis, systemic embolization; TREATMENT for venous thrombosis and/or pulmonary embolus.HIGH RISK: Target INR is2.5-3.5 for patients wiht mechanical heart valves.BASIC METABOLIC [id number] 10:39: 00 Test Item Value Reference Range Comments SODIUM (BEAKER) (test 137 meq/L 136-145 osds=593) POTASSIUM (BEAKER) (test 3.0 meq/L 3.5-5.1 bndk=294) CHLORIDE (BEAKER) (test 105 meq/L 98-107 sdtc=857) CO2 (BEAKER) (test 23 meq/L 22-29 zuyw=657) BLOOD UREA NITROGEN 17 mg/dL 7-21 (BEAKER) (test ortj=916) CREATININE (BEAKER) (test 1.13 mg/dL 0.57-1.25 yzua=271) GLUCOSE RANDOM (BEAKER) 123 mg/dL 70-105 (test jvkr=169) CALCIUM (BEAKER) (test 8.9 mg/dL 8.4-10.2 uqvm=188) EGFR (BEAKER) (test 68 mL/min/1.73 sq m ESTIMATED GFR IS NOT sohg=0551) ACCURATE CREATININE CLEARANCE IN PREDICTING GLOMERULAR FILTRATION RATE. ESTIMATED GFR IS NOT APPLICABLE FOR DIALYSIS PATIENTS. CBC W/PLT COUNT & AUTO [id number] 10:27:00 Test Item Value Reference Range Comments WHITE BLOOD CELL COUNT (BEAKER) (test lzsg=744) 6.2 K/ L 3.5-10.5 RED BLOOD CELL COUNT (BEAKER) (test yxee=129) 4.11 M/ L 4.63-6.08 HEMOGLOBIN (BEAKER) (test onud=340) 12.2 GM/DL 13.7-17.5 HEMATOCRIT (BEAKER) (test ktvw=237) 36.1 % 40.1-51.0 MEAN CORPUSCULAR VOLUME (BEAKER) (test qvdk=193) 87.8 fL 79.0-92.2 MEAN CORPUSCULAR HEMOGLOBIN (BEAKER) (test 29.7 pg 25.7-32.2 bsjz=014) MEAN CORPUSCULAR HEMOGLOBIN CONC (BEAKER) (test 33.8 GM/DL 32.3-36.5 qefb=256) RED CELL DISTRIBUTION WIDTH (BEAKER) (test 13.5 % 11.6-14.4 euoc=245) PLATELET COUNT (BEAKER) (test huif=785) 109 K/CU MM 150-450 MEAN PLATELET VOLUME (BEAKER) (test pboa=095) 9.6 fL 9.4-12.4 NUCLEATED RED BLOOD CELLS (BEAKER) (test 0 /100 WBC 0-0 kqsy=600) NEUTROPHILS RELATIVE PERCENT (BEAKER) (test 61 % dqji=416) LYMPHOCYTES RELATIVE PERCENT (BEAKER) (test 17 % vckh=360) MONOCYTES RELATIVE PERCENT (BEAKER) (test 16 % jyol=516) EOSINOPHILS RELATIVE PERCENT (BEAKER) (test 5 % rmav=456) BASOPHILS RELATIVE PERCENT (BEAKER) (test 2 % dnwq=387) NEUTROPHILS ABSOLUTE COUNT (BEAKER) (test 3.74 K/ L 1.78-5.38 zjml=055) LYMPHOCYTES ABSOLUTE COUNT (BEAKER) (test 1.02 K/ L 1.32-3.57 ijec=561) MONOCYTES ABSOLUTE COUNT (BEAKER) (test 1.01 K/ L 0.30-0.82 xain=095) EOSINOPHILS ABSOLUTE COUNT (BEAKER) (test 0.29 K/ L 0.04-0.54 newy=333) BASOPHILS ABSOLUTE COUNT (BEAKER) (test 0.09 K/ L 0.01-0.08 ljqg=361) IMMATURE GRANULOCYTES-RELATIVE PERCENT (BEAKER) 0 % 0-1 (test yrez=9937) CT, CHEST, WITH IV [id number] 11:06:00FINAL REPORT CT of the chest, abdomen and pelvis, with contrast Clinical History: malignant neoplasm of urinary bladder, unspecified site Technique: CT of the chest, abdomen and pelvis is performed with intravenous contrast administration. This exam was performed according toour departmental dose optimization program which includes automated exposure control, adjustment of the mA and/or kV according to patient's size and/or use of iterative reconstructive technique. Comparison Film: February 17, 2019, November 14, 2018 Discussion: Visualized thyroid gland is unremarkable. There is no supraclavicular, axillary adenopathy. Small anterior mediastinal nodules are not changed. A right Port-A-Cath is been removed, with interval placement of a right-sided PICC line. Heart and pericardium are unremarkable. There is no new mass or consolidation, no pleural effusion. Central airways are patent. Subtle hypodensity in the liver adjacent to falciform ligament could reflect focal fat. No biliary ductal dilatation, gallbladder is unremarkable. The spleen, pancreas, adrenal glands are unremarkable. Kidneys demonstrate no mass, hydronephrosis or radiopaque stone. Patient is status post cystoprostatectomy, with neobladder. No evidence of bowel obstruction, or abnormal bowel wall thickening. Normal appendix. There is interval increase in the number of mesenteric lymph nodes, and several omental nodules in the upper abdomen are new , highly suspicious for metastasis. There is also increase in left inguinal and external iliac adenopathy, likely metastatic as well. For example, a left commoniliac node previously measuring 6 mm in short axis now measures 9 mm. No free air or ascites. Multiple chronic left-sided rib fracture deformities are again seen. No suspicious bony lesion is identified. Impression: New omental nodules. Increased number of mesenteric lymph nodes, and interval enlargement of left external iliac, and inguinal lymph nodes, all suspicious for metastasis. Signed: Beto HitchcockReport Verified Date/Time: 05/29/2019 11:06:29 Reading Location: [address] Ortho Consult Reading Room CT, [id number] 11:06: 00FINAL REPORT CT of the chest, abdomen and pelvis, with contrast Clinical History: malignant neoplasm of urinary bladder, unspecified site Technique: CT of the chest, abdomen and pelvis is performed with intravenous contrast administration. This exam was performed according toour departmental dose optimization program which includes automated exposure control, adjustment of the mA and/or kV according to patient's size and/or use of iterative reconstructive technique. Comparison Film: February 17, 2019, November Discussion: Visualized thyroid gland is unremarkable. There is no supraclavicular, axillary adenopathy. Small anterior mediastinal nodules are not changed. A right Port-A-Cath is been removed, with interval placement of a right-sided PICC line. Heart and pericardium are unremarkable. There is no new mass or consolidation, no pleural effusion. Central airways are patent. Subtle hypodensity in the liver adjacent to falciform ligament could reflect focal fat. No biliary ductal dilatation, gallbladder is unremarkable. The spleen, pancreas, adrenal glands are unremarkable. Kidneys demonstrate no mass, hydronephrosis or radiopaque stone. Patient is status post cystoprostatectomy, with neobladder. No evidence of bowel obstruction, or abnormal bowel wall thickening. Normal appendix. There is interval increase in the number of mesenteric lymph nodes, and several omental nodules in the upper abdomen are new , highly suspicious for metastasis. There is also increase in left inguinal and external iliac adenopathy, likely metastatic as well. For example, a left commoniliac node previously measuring 6 mm in short axis now measures 9 mm. No free air or ascites. Multiple chronic left-sided rib fracture deformities are again seen. No suspicious bony lesion is identified. Impression: New omental nodules. Increased number of mesenteric lymph nodes, and interval enlargement of left external iliac, and inguinal lymph nodes, all suspicious for metastasis. Signed: Jarett Hitchcock Verified Date/Time: 05/29/2019 11:06:29 Reading Location: [facility] [id number] Ortho Consult Reading Room [id number] 08:02 :00 Test Item Value Reference Range Comments POC-CREATININE (BEAKER) 1.2 mg/dL 0.6-1.[address] [facility] 7200 (test qxpt=7686) [facility] [address] POC-EGFR (BEAKER) (test 64 mL/min/1.73M2 euvd=6605) DOUBLE-STRANDED DNA (DSDNA) [id number] 13:36:00 Test Item Value Reference Range Comments ANTI-DNA DS (BEAKER) (test rjue=6081) Negative ANTI-NUCLEAR ANTIBODY (CONNIE)2019-05-21 10:45:00 Test Item Value Reference Range Comments ANTI-NUCLEAR ANTIBODY (CONNIE) (BEAKER) (test Positive Negative yfex=986) Test performed by IFA method.CONNIE TITER AND [id number] 10:45:00 Test Item Value Reference Range Comments CONNIE TITER (BEAKER) (test uiao=3414) :640 CONNIE PATTERN (BEAKER) (test ihhk=7199) Speckled BLOOD [id number] 07:01:00 Test Item Value Reference Range Comments CULTURE (BEAKER) (test ciqe=6302) No growth in 5 days BLOOD [id number] 19:01:00 Test Item Value Reference Range Comments CULTURE (BEAKER) (test mabs=2309) No growth in 5 days BLOOD [id number] 19:01:00 Test Item Value Reference Range Comments CULTURE (BEAKER) (test dort=5408) No growth in 5 days CATHETER TIP [id number] 08:39:00 Test Item Value Reference Range Comments CULTURE (BEAKER) (test fwug=1417) No growth CBC W/PLT COUNT & AUTO [id number] 06:09:00 Test Item Value Reference Range Comments WHITE BLOOD CELL COUNT (BEAKER) (test uaud=408) 4.7 K/ L 3.5-10.5 RED BLOOD CELL COUNT (BEAKER) (test vxev=065) 3.59 M/ L 4.63-6.08 HEMOGLOBIN (BEAKER) (test zxel=669) 10.6 GM/DL 13.7-17.5 HEMATOCRIT (BEAKER) (test vhgv=906) 32.5 % 40.1-51.0 MEAN CORPUSCULAR VOLUME (BEAKER) (test indr=123) 90.5 fL 79.0-92.2 MEAN CORPUSCULAR HEMOGLOBIN (BEAKER) (test 29.5 pg 25.7-32.2 qpvh=322) MEAN CORPUSCULAR HEMOGLOBIN CONC (BEAKER) (test 32.6 GM/DL 32.3-36.5 ajfj=502) RED CELL DISTRIBUTION WIDTH (BEAKER) (test 13.8 % 11.6-14.4 pqmg=517) PLATELET COUNT (BEAKER) (test jobx=299) 87 K/CU MM 150-450 MEAN PLATELET VOLUME (BEAKER) (test cfgu=039) 10.5 fL 9.4-12.4 NUCLEATED RED BLOOD CELLS (BEAKER) (test 0 /100 WBC 0-0 kjzv=176) NEUTROPHILS RELATIVE PERCENT (BEAKER) (test 45 % howb=443) LYMPHOCYTES RELATIVE PERCENT (BEAKER) (test 33 % cahw=305) MONOCYTES RELATIVE PERCENT (BEAKER) (test 13 % jpmv=643) EOSINOPHILS RELATIVE PERCENT (BEAKER) (test 7 % fpgb=474) BASOPHILS RELATIVE PERCENT (BEAKER) (test 2 % kbif=988) NEUTROPHILS ABSOLUTE COUNT (BEAKER) (test 2.10 K/ L 1.78-5.38 agqw=769) LYMPHOCYTES ABSOLUTE COUNT (BEAKER) (test 1.53 K/ L 1.32-3.57 sfti=010) MONOCYTES ABSOLUTE COUNT (BEAKER) (test mgxr=378) 0.62 K/ L 0.30-0.82 EOSINOPHILS ABSOLUTE COUNT (BEAKER) (test 0.33 K/ L 0.04-0.54 dtle=456) BASOPHILS ABSOLUTE COUNT (BEAKER) (test fkgm=469) 0.08 K/ L 0.01-0.08 IMMATURE GRANULOCYTES-RELATIVE PERCENT (BEAKER) 0 % 0-1 (test gchw=6711) RAD, CHEST, 1 VIEW, NON [id number] 17:11:00Reason for exam:->post picc line insertionShould this [...] PICC in adequate position. Signed: Dani Valles [facility] Verified Date/Time: 05/18/2019 17:11:42 Reading Location: [facility] Radiology Reading Room VANCOMYCIN LEVEL, [id number] 15:49:00 Test Item Value Reference Range Comments VANCOMYCIN TROUGH (BEAKER) (test vpmb=342) 33.9 ug/mL 10.0-20.0 Please draw 30 min prior to next doseRHEUMATOID FACTOR AB, REFLEX TO [id number] 11:01:00 Test Item Value Reference Range Comments RHEUMATOID FACTOR (BEAKER) (test ueyz=795) Negative C-REACTIVE [id number] 06:25:00 Test Item Value Reference Range Comments C-REACTIVE PROTEIN (MARCIE) (test htta=838) 0.76 mg/dL 0.00-0.50 ANG, REMOVAL OF TUNNELED CVC [id number] 11:43:00Reason for exam:->port removal. TEJAS with suspected endocarditisFINAL REPORT Procedure: Right IJ port a cath removal. History: Catheter no longer needed. [employer]el Autom[employer] Technician: KHANH Karimi. Dr. Ugarte was the supervising attending radiologist. Jack Prizer: None. Modality: Fluoroscopy. DOSE REDUCTION: The examination [...] the care of your patient. Signed: Poli Ugarteort Verified Date/Time: 05/17/2019 11:43:56 Reading Location: [place] [id number] Angio Body Reading Room C-REACTIVE [id number] 06:37:00 Test Item Value Reference Range Comments C-REACTIVE PROTEIN (BEAKER) (test xdzl=045) 0.78 mg/dL 0.00-0.50 BASIC METABOLIC [id number] 06:35:00 Test Item Value Reference Range Comments SODIUM (BEAKER) (test 142 meq/L 136-145 ymaj=499) POTASSIUM (BEAKER) (test 4.0 meq/L 3.5-5.1 nths=094) CHLORIDE (BEAKER) (test 107 meq/L 98-107 jkxi=931) CO2 (BEAKER) (test 30 meq/L 22-29 ehdu=108) BLOOD UREA NITROGEN 20 mg/dL 7-21 (BEAKER) (test frpv=504) CREATININE (BEAKER) (test 1.03 mg/dL 0.57-1.25 yxuk=890) GLUCOSE RANDOM (BEAKER) 90 mg/dL 70-105 (test ofcw=573) CALCIUM (BEAKER) (test 8.7 mg/dL 8.4-10.2 fnrd=554) EGFR (BEAKER) (test 76 mL/min/1.73 sq m ESTIMATED GFR IS NOT cyyp=9640) ACCURATE CREATININE CLEARANCE IN PREDICTING GLOMERULAR FILTRATION RATE. ESTIMATED GFR IS NOT APPLICABLE FOR DIALYSIS PATIENTS. [id number] 06:19:00 Test Item Value Reference Range Comments PROCALCITONIN (BEAKER) (test zfdb=0144) 0.07 ng/mL <0.05 SEPSIS RISK (ng/mL)Low: 0.05-0.50Intermediate: 0.51-2.00High: & gt;=2.01CBC W/PLT COUNT & AUTO [id number] 05:49:00 Test Item Value Reference Range Comments WHITE BLOOD CELL COUNT (BEAKER) (test cubm=970) 5.8 K/ L 3.5-10.5 RED BLOOD CELL COUNT (BEAKER) (test cxtm=905) 3.63 M/ L 4.63-6.08 HEMOGLOBIN (BEAKER) (test avza=412) 10.7 GM/DL 13.7-17.5 HEMATOCRIT (BEAKER) (test hqtc=998) 33.2 % 40.1-51.0 MEAN CORPUSCULAR VOLUME (BEAKER) (test kxte=222) 91.5 fL 79.0-92.2 MEAN CORPUSCULAR HEMOGLOBIN (BEAKER) (test 29.5 pg 25.7-32.2 udkt=613) MEAN CORPUSCULAR HEMOGLOBIN CONC (BEAKER) (test 32.2 GM/DL 32.3-36.5 cumc=110) RED CELL DISTRIBUTION WIDTH (BEAKER) (test 13.7 % 11.6-14.4 nhfc=359) PLATELET COUNT (BEAKER) (test xdlz=238) 70 K/CU MM 150-450 MEAN PLATELET VOLUME (BEAKER) (test frey=340) 10.1 fL 9.4-12.4 NUCLEATED RED BLOOD CELLS (BEAKER) (test 0 /100 WBC 0-0 szhu=341) NEUTROPHILS RELATIVE PERCENT (BEAKER) (test 51 % bwmi=290) LYMPHOCYTES RELATIVE PERCENT (BEAKER) (test 31 % vknh=382) MONOCYTES RELATIVE PERCENT (BEAKER) (test 11 % ghlc=176) EOSINOPHILS RELATIVE PERCENT (BEAKER) (test 5 % lmaj=203) BASOPHILS RELATIVE PERCENT (BEAKER) (test 1 % uooa=469) NEUTROPHILS ABSOLUTE COUNT (BEAKER) (test 2.96 K/ L 1.78-5.38 vmgh=586) LYMPHOCYTES ABSOLUTE COUNT (BEAKER) (test 1.78 K/ L 1.32-3.57 hhig=249) MONOCYTES ABSOLUTE COUNT (BEAKER) (test rqaq=056) 0.66 K/ L 0.30-0.82 EOSINOPHILS ABSOLUTE COUNT (BEAKER) (test 0.29 K/ L 0.04-0.54 kjun=747) BASOPHILS ABSOLUTE COUNT (BEAKER) (test etde=554) 0.07 K/ L 0.01-0.08 IMMATURE GRANULOCYTES-RELATIVE PERCENT (BEAKER) 0 % 0-1 (test ylsn=8714) RAD, CHEST, 1 VIEW, NON [id number] 23:38:00Reason for exam:->retained line in subclavian?Should this be performed at the bedside?->YesFINAL REPORT AP chest dated 05/15/2019 Comment: Heart is normal in size. Port-A-Cath is present. Pulmonary vasculature is unremarkable. Lungs are clear. No pulmonary infiltrate orpleural effusion. Impression: No active cardiopulmonary disease. Signed: Kiara Katz MDReport Verified Date/Time: 05/15 23:38:58 Reading Location: [address] Consult Reading Room NV, ANGIOGRAM , [id number] 06:38:00Reason for exam:->evaluate intermittent vision lossAnesthesia:->MACFINAL REPORT DATE OF PROCEDURE: SURGEON: Adina Khan M.D. FRUIT BAR MAKER: Camille Odom MD PREOPERATIVE DIAGNOSIS: vision loss [...] Using coaxial technique, a 5- Fr Angled Hicks catheter was advanced into the subclavian, back-bled, [...] clinical complications. Signed: Adina Khan MDReport Verified Date/ Time: 05/15/2019 06:38:47 Reading Location: [facility] Y02 Neuro Angio Reading Room PROTHROMBIN [id number] 09:42:00 Test Item Value Reference Range Comments PROTIME (BEAKER) (test mcnm=819) 15.0 seconds 11.9-14.2 INR (BEAKER) (test tbgp=860) 1.2 <=5.9 Effective 12/06/2018: PT Reference Range ChangeNew: 11.9-14.2 Previous: 11.7- 14.7RECOMMENDED COUMADIN/WARFARIN INR THERAPY RANGESSTANDARD DOSE: 2.0-3.0 Includes: PROPHYLAXIS for venous thrombosis, systemic embolization; TREATMENT for venous thrombosis and/or pulmonary embolus.HIGH RISK: Target INR is2.5-3.5 for patients wiht mechanical heart valves.[id number] 09:42:00 Test Item Value Reference Range Comments PARTIAL THROMBOPLASTIN TIME (BEAKER) (test 36.9 seconds 22.5-36.0 ckey=518) BASIC METABOLIC [id number] 09:35:00 Test Item Value Reference Range Comments SODIUM (BEAKER) (test 142 meq/L 136-145 deqj=138) POTASSIUM (BEAKER) (test 3.3 meq/L 3.5-5.1 qypu=527) CHLORIDE (BEAKER) (test 104 meq/L 98-107 naqv=110) CO2 (BEAKER) (test 28 meq/L 22-29 etnz=281) BLOOD UREA NITROGEN 17 mg/dL 7-21 (BEAKER) (test opao=960) CREATININE (BEAKER) (test 1.07 mg/dL 0.57-1.25 umln=043) GLUCOSE RANDOM (BEAKER) 112 mg/dL 70-105 (test jixh=030) CALCIUM (BEAKER) (test 9.2 mg/dL 8.4-10.2 jljh=537) EGFR (BEAKER) (test 73 mL/min/1.73 sq m ESTIMATED GFR IS NOT wvye=9694) ACCURATE CREATININE CLEARANCE IN PREDICTING GLOMERULAR FILTRATION RATE. ESTIMATED GFR IS NOT APPLICABLE FOR DIALYSIS PATIENTS. CBC W/PLT COUNT & AUTO [id number] 09:25:00 Test Item Value Reference Range Comments WHITE BLOOD CELL COUNT (BEAKER) (test quzt=241) 4.8 K/ L 3.5-10.5 RED BLOOD CELL COUNT (BEAKER) (test nrij=532) 4.00 M/ L 4.63-6.08 HEMOGLOBIN (BEAKER) (test mipx=808) 11.8 GM/DL 13.7-17.5 HEMATOCRIT (BEAKER) (test wyju=125) 36.9 % 40.1-51.0 MEAN CORPUSCULAR VOLUME (BEAKER) (test tqhn=583) 92.3 fL 79.0-92.2 MEAN CORPUSCULAR HEMOGLOBIN (BEAKER) (test 29.5 pg 25.7-32.2 wtxu=677) MEAN CORPUSCULAR HEMOGLOBIN CONC (BEAKER) (test 32.0 GM/DL 32.3-36.5 wtnt=799) RED CELL DISTRIBUTION WIDTH (BEAKER) (test 13.8 % 11.6-14.4 such=920) PLATELET COUNT (BEAKER) (test gvhk=314) 107 K/CU MM 150-450 MEAN PLATELET VOLUME (BEAKER) (test pwng=316) 10.1 fL 9.4-12.4 NUCLEATED RED BLOOD CELLS (BEAKER) (test 0 /100 WBC 0-0 kdgc=550) NEUTROPHILS RELATIVE PERCENT (BEAKER) (test 58 % ppmm=060) LYMPHOCYTES RELATIVE PERCENT (BEAKER) (test 27 % xvvj=064) MONOCYTES RELATIVE PERCENT (BEAKER) (test 8 % eckp=388) EOSINOPHILS RELATIVE PERCENT (BEAKER) (test 6 % fize=425) BASOPHILS RELATIVE PERCENT (BEAKER) (test 1 % ituf=846) NEUTROPHILS ABSOLUTE COUNT (BEAKER) (test 2.83 K/ L 1.78-5.38 cfxq=876) LYMPHOCYTES ABSOLUTE COUNT (BEAKER) (test 1.29 K/ L 1.32-3.57 bjbt=867) MONOCYTES ABSOLUTE COUNT (BEAKER) (test 0.39 K/ L 0.30-0.82 hais=243) EOSINOPHILS ABSOLUTE COUNT (BEAKER) (test 0.27 K/ L 0.04-0.54 kitn=561) BASOPHILS ABSOLUTE COUNT (BEAKER) (test 0.05 K/ L 0.01-0.08 lfol=398) IMMATURE GRANULOCYTES-RELATIVE PERCENT (BEAKER) 0 % 0-1 (test umyc=2717) HEPATIC FUNCTION [id number] 07:46:00 Test Item Value Reference Range Comments TOTAL PROTEIN (BEAKER) (test mdkd=335) 5.8 gm/dL 6.0-8.3 ALBUMIN (BEAKER) (test wgkc=9506) 3.3 g/dL 3.5-5.0 BILIRUBIN TOTAL (BEAKER) (test ehhf=511) 0.7 mg/dL 0.2-1.2 BILIRUBIN DIRECT (BEAKER) (test gyrt=379) 0.4 mg/dL 0.1-0.5 ALKALINE PHOSPHATASE (BEAKER) (test uvrv=358) 116 U/L 40-150 AST (SGOT) (BEAKER) (test ccrw=290) 32 U/L 5-34 ALT (SGPT) (BEAKER) (test ibxl=879) 27 U/L 6-55 BASIC METABOLIC [id number] 07:46:00 Test Item Value Reference Range Comments SODIUM (BEAKER) (test 144 meq/L 136-145 aasn=938) POTASSIUM (BEAKER) (test 3.6 meq/L 3.5-5.1 mtyy=800) CHLORIDE (BEAKER) (test 112 meq/L 98-107 gnvs=236) CO2 (BEAKER) (test 26 meq/L 22-29 bsks=901) BLOOD UREA NITROGEN 18 mg/dL 7-21 (BEAKER) (test rgka=572) CREATININE (BEAKER) (test 1.00 mg/dL 0.57-1.25 bepc=631) GLUCOSE RANDOM (BEAKER) 93 mg/dL 70-105 (test fdjn=057) CALCIUM (BEAKER) (test 8.2 mg/dL 8.4-10.2 jiuv=337) EGFR (BEAKER) (test 78 mL/min/1.73 sq m ESTIMATED GFR IS NOT vuxi=9680) ACCURATE CREATININE CLEARANCE IN PREDICTING GLOMERULAR FILTRATION RATE. ESTIMATED GFR IS NOT APPLICABLE FOR DIALYSIS PATIENTS. CBC W/PLT COUNT & AUTO [id number] 07:01:00 Test Item Value Reference Range Comments WHITE BLOOD CELL COUNT (BEAKER) (test stci=708) 5.9 K/ L 3.5-10.5 RED BLOOD CELL COUNT (BEAKER) (test vkmx=903) 3.48 M/ L 4.63-6.08 HEMOGLOBIN (BEAKER) (test tjlp=125) 10.4 GM/DL 13.7-17.5 HEMATOCRIT (BEAKER) (test iqlb=903) 32.8 % 40.1-51.0 MEAN CORPUSCULAR VOLUME (BEAKER) (test jfry=063) 94.3 fL 79.0-92.2 MEAN CORPUSCULAR HEMOGLOBIN (BEAKER) (test 29.9 pg 25.7-32.2 hfrw=047) MEAN CORPUSCULAR HEMOGLOBIN CONC (BEAKER) (test 31.7 GM/DL 32.3-36.5 uqkg=730) RED CELL DISTRIBUTION WIDTH (BEAKER) (test 13.7 % 11.6-14.4 wouo=521) PLATELET COUNT (BEAKER) (test lffd=576) 82 K/CU MM 150-450 MEAN PLATELET VOLUME (BEAKER) (test sgrb=489) 9.8 fL 9.4-12.4 NUCLEATED RED BLOOD CELLS (BEAKER) (test 0 /100 WBC 0-0 mzvx=490) NEUTROPHILS RELATIVE PERCENT (BEAKER) (test 51 % phxk=464) LYMPHOCYTES RELATIVE PERCENT (BEAKER) (test 33 % lepz=103) MONOCYTES RELATIVE PERCENT (BEAKER) (test 10 % jhkp=119) EOSINOPHILS RELATIVE PERCENT (BEAKER) (test 5 % nuiq=169) BASOPHILS RELATIVE PERCENT (BEAKER) (test 1 % ifdt=242) NEUTROPHILS ABSOLUTE COUNT (BEAKER) (test 2.98 K/ L 1.78-5.38 svoe=054) LYMPHOCYTES ABSOLUTE COUNT (BEAKER) (test 1.92 K/ L 1.32-3.57 ugpt=400) MONOCYTES ABSOLUTE COUNT (BEAKER) (test jeyx=402) 0.61 K/ L 0.30-0.82 EOSINOPHILS ABSOLUTE COUNT (BEAKER) (test 0.28 K/ L 0.04-0.54 bpao=142) BASOPHILS ABSOLUTE COUNT (BEAKER) (test cblj=173) 0.07 K/ L 0.01-0.08 IMMATURE GRANULOCYTES-RELATIVE PERCENT (BEAKER) 0 % 0-1 (test iqex=8717) HEPATIC FUNCTION [id number] 05:39:00 Test Item Value Reference Range Comments TOTAL PROTEIN (BEAKER) (test bzow=152) 6.0 gm/dL 6.0-8.3 ALBUMIN (BEAKER) (test xxlm=8972) 3.5 g/dL 3.5-5.0 BILIRUBIN TOTAL (BEAKER) (test moyu=296) 1.0 mg/dL 0.2-1.2 BILIRUBIN DIRECT (BEAKER) (test ayba=981) 0.5 mg/dL 0.1-0.5 ALKALINE PHOSPHATASE (BEAKER) (test nmzv=669) 125 U/L 40-150 AST (SGOT) (BEAKER) (test ggcx=938) 31 U/L 5-34 ALT (SGPT) (BEAKER) (test ryzk=667) 25 U/L 6-55 BASIC METABOLIC [id number] 05:39:00 Test Item Value Reference Range Comments SODIUM (BEAKER) (test 141 meq/L 136-145 rojw=770) POTASSIUM (BEAKER) (test 3.5 meq/L 3.5-5.1 kjhh=903) CHLORIDE (BEAKER) (test 109 meq/L 98-107 hmty=369) CO2 (BEAKER) (test 26 meq/L 22-29 oikr=028) BLOOD UREA NITROGEN 16 mg/dL 7-21 (BEAKER) (test zxhv=714) CREATININE (BEAKER) (test 1.07 mg/dL 0.57-1.25 dcbk=445) GLUCOSE RANDOM (BEAKER) 94 mg/dL 70-105 (test okjf=054) CALCIUM (BEAKER) (test 8.4 mg/dL 8.4-10.2 rynl=357) EGFR (BEAKER) (test 73 mL/min/1.73 sq m ESTIMATED GFR IS NOT bovx=1732) ACCURATE CREATININE CLEARANCE IN PREDICTING GLOMERULAR FILTRATION RATE. ESTIMATED GFR IS NOT APPLICABLE FOR DIALYSIS PATIENTS. CBC W/PLT COUNT & AUTO [id number] 05:19:00 Test Item Value Reference Range Comments WHITE BLOOD CELL COUNT (BEAKER) (test oglg=889) 6.5 K/ L 3.5-10.5 RED BLOOD CELL COUNT (BEAKER) (test tiat=727) 3.63 M/ L 4.63-6.08 HEMOGLOBIN (BEAKER) (test oeqs=663) 10.8 GM/DL 13.7-17.5 HEMATOCRIT (BEAKER) (test bahp=886) 33.4 % 40.1-51.0 MEAN CORPUSCULAR VOLUME (BEAKER) (test dmsk=807) 92.0 fL 79.0-92.2 MEAN CORPUSCULAR HEMOGLOBIN (BEAKER) (test 29.8 pg 25.7-32.2 schb=740) MEAN CORPUSCULAR HEMOGLOBIN CONC (BEAKER) (test 32.3 GM/DL 32.3-36.5 bzod=254) RED CELL DISTRIBUTION WIDTH (BEAKER) (test 13.5 % 11.6-14.4 rery=679) PLATELET COUNT (BEAKER) (test qdat=231) 104 K/CU MM 150-450 MEAN PLATELET VOLUME (BEAKER) (test aktb=181) 10.0 fL 9.4-12.4 NUCLEATED RED BLOOD CELLS (BEAKER) (test 0 /100 WBC 0-0 fgko=427) NEUTROPHILS RELATIVE PERCENT (BEAKER) (test 54 % eplf=958) LYMPHOCYTES RELATIVE PERCENT (BEAKER) (test 28 % kbya=241) MONOCYTES RELATIVE PERCENT (BEAKER) (test 12 % byhy=885) EOSINOPHILS RELATIVE PERCENT (BEAKER) (test 5 % gega=345) BASOPHILS RELATIVE PERCENT (BEAKER) (test 1 % mpdw=032) NEUTROPHILS ABSOLUTE COUNT (BEAKER) (test 3.50 K/ L 1.78-5.38 ceww=904) LYMPHOCYTES ABSOLUTE COUNT (BEAKER) (test 1.79 K/ L 1.32-3.57 fhgg=922) MONOCYTES ABSOLUTE COUNT (BEAKER) (test 0.76 K/ L 0.30-0.82 dide=573) EOSINOPHILS ABSOLUTE COUNT (BEAKER) (test 0.35 K/ L 0.04-0.54 djtl=383) BASOPHILS ABSOLUTE COUNT (BEAKER) (test 0.08 K/ L 0.01-0.08 prkb=847) IMMATURE GRANULOCYTES-RELATIVE PERCENT (BEAKER) 0 % 0-1 (test xeoe=6877) [id number] 13:38:00 Test Item Value Reference Range Comments RPR SCREEN (BEAKER) (test zckb=691) Nonreactive Nonreactive HEMOGLOBIN [id number] 08:39:00 Test Item Value Reference Range Comments HEMOGLOBIN A1C (BEAKER) (test uxmo=143) 5.2 % 4.3-6.1 [id number] 06:23:00 Test Item Value Reference Range Comments THYROID STIMULATING HORMONE (BEAKER) (test 2.45 uIU/mL 0.35-4.94 gopn=399) VITAMIN B12 AND [id number] 06:23:00 Test Item Value Reference Range Comments VITAMIN B12 (BEAKER) (test hfta=735) 466 pg/mL 213-816 FOLATE (BEAKER) (test oaml=213) 9.5 ng/mL >=7.0 C-REACTIVE [id number] 06:23:00 Test Item Value Reference Range Comments C-REACTIVE PROTEIN (BEAKER) (test jmtf=981) 0.42 mg/dL 0.00-0.50 LIPID [id number] 05:49:00 Test Item Value Reference Range Comments TRIGLYCERIDES (BEAKER) (test zrvx=370) 91 mg/dL CHOLESTEROL (BEAKER) (test ilda=163) 111 mg/dL HDL CHOLESTEROL (BEAKER) (test bvmf=206) 45 mg/dL LDL CHOLESTEROL CALCULATED (BEAKER) (test 48 mg/dL attf=296) Triglyceride Reference Range: Low Risk <150 Borderline 150- 199 High Risk 200-499 Very High Risk >=500Cholesterol Reference Range: Low Risk <200 Borderline 200-239 High Risk > 240HDL Cholesterol Reference Range: Low Risk >=60 High Risk <40LDL Cholesterol Reference Range: Optimal <100 Near Optimal 100-129 Borderline 130-159 High 160-189 Very High >=190BASIC METABOLIC [id number] 05:49:00 Test Item Value Reference Range Comments SODIUM (BEAKER) (test 142 meq/L 136-145 bvdk=461) POTASSIUM (BEAKER) (test 3.6 meq/L 3.5-5.1 evef=827) CHLORIDE (BEAKER) (test 109 meq/L 98-107 mohr=034) CO2 (BEAKER) (test 27 meq/L 22-29 hufj=434) BLOOD UREA NITROGEN 17 mg/dL 7-21 (BEAKER) (test rjdo=509) CREATININE (BEAKER) (test 1.08 mg/dL 0.57-1.25 ggdr=957) GLUCOSE RANDOM (BEAKER) 98 mg/dL 70-105 (test mofz=208) CALCIUM (BEAKER) (test 8.5 mg/dL 8.4-10.2 vgni=078) EGFR (BEAKER) (test 72 mL/min/1.73 sq m ESTIMATED GFR IS NOT rrsi=0362) ACCURATE CREATININE CLEARANCE IN PREDICTING GLOMERULAR FILTRATION RATE. ESTIMATED GFR IS NOT APPLICABLE FOR DIALYSIS PATIENTS. HEPATIC FUNCTION [id number] 05:49:00 Test Item Value Reference Range Comments TOTAL PROTEIN (BEAKER) (test qexc=588) 6.1 gm/dL 6.0-8.3 ALBUMIN (BEAKER) (test ocdr=2478) 3.5 g/dL 3.5-5.0 BILIRUBIN TOTAL (BEAKER) (test dyiv=845) 0.6 mg/dL 0.2-1.2 BILIRUBIN DIRECT (BEAKER) (test vimv=777) 0.3 mg/dL 0.1-0.5 ALKALINE PHOSPHATASE (BEAKER) (test fpsg=131) 135 U/L 40-150 AST (SGOT) (BEAKER) (test jrop=635) 34 U/L 5-34 ALT (SGPT) (BEAKER) (test gist=496) 30 U/L 6-55 CBC W/PLT COUNT & AUTO [id number] 05:27:00 Test Item Value Reference Range Comments WHITE BLOOD CELL COUNT (BEAKER) (test llyn=792) 6.1 K/ L 3.5-10.5 RED BLOOD CELL COUNT (BEAKER) (test voir=016) 3.62 M/ L 4.63-6.08 HEMOGLOBIN (BEAKER) (test cwww=441) 10.7 GM/DL 13.7-17.5 HEMATOCRIT (BEAKER) (test uljh=279) 33.9 % 40.1-51.0 MEAN CORPUSCULAR VOLUME (BEAKER) (test apps=662) 93.6 fL 79.0-92.2 MEAN CORPUSCULAR HEMOGLOBIN (BEAKER) (test 29.6 pg 25.7-32.2 oawc=791) MEAN CORPUSCULAR HEMOGLOBIN CONC (BEAKER) (test 31.6 GM/DL 32.3-36.5 oouf=418) RED CELL DISTRIBUTION WIDTH (BEAKER) (test 13.5 % 11.6-14.4 jbos=087) PLATELET COUNT (BEAKER) (test qpxj=469) 111 K/CU MM 150-450 MEAN PLATELET VOLUME (BEAKER) (test gmzv=109) 9.8 fL 9.4-12.4 NUCLEATED RED BLOOD CELLS (BEAKER) (test 0 /100 WBC 0-0 qqzc=061) NEUTROPHILS RELATIVE PERCENT (BEAKER) (test 53 % qeeu=371) LYMPHOCYTES RELATIVE PERCENT (BEAKER) (test 30 % eyhe=397) MONOCYTES RELATIVE PERCENT (BEAKER) (test 11 % ogor=224) EOSINOPHILS RELATIVE PERCENT (BEAKER) (test 5 % vyqd=437) BASOPHILS RELATIVE PERCENT (BEAKER) (test 1 % pohx=348) NEUTROPHILS ABSOLUTE COUNT (BEAKER) (test 3.26 K/ L 1.78-5.38 xjjh=728) LYMPHOCYTES ABSOLUTE COUNT (BEAKER) (test 1.80 K/ L 1.32-3.57 plwv=689) MONOCYTES ABSOLUTE COUNT (BEAKER) (test 0.65 K/ L 0.30-0.82 xjmu=644) EOSINOPHILS ABSOLUTE COUNT (BEAKER) (test 0.30 K/ L 0.04-0.54 rcqy=039) BASOPHILS ABSOLUTE COUNT (BEAKER) (test 0.06 K/ L 0.01-0.08 mrzs=357) IMMATURE GRANULOCYTES-RELATIVE PERCENT (BEAKER) 1 % 0-1 (test jadg=1078) CT, CAROTID, [id number] 02:56:00FINAL REPORT CLINICAL HISTORY: Neuro deficit, acute, [...] are patent. The vessels beyond the proximal [place] segments are not well seen [...] by NASCET criteria. Signed: Patricia Del Valle MDReport Verified Date/Time: 05/09/2019 02:56:41 [facility] [id number] 02:56:00FINAL REPORT CLINICAL HISTORY: Neuro deficit, acute, [...] are patent. The vessels beyond the proximal [place] segments are not well seen [...] by NASCET criteria. Signed: Patricia Del Valle MDReport Verified Date/Time: 05/09/2019 02:56:41 MR, BRAIN, WITHOUT [id number] 02:31:00FINAL REPORT MRI Brain without contrast Clinical History: Neuro deficit, acute, stroke suspected Technique: MRI of the brain utilizing axial T2, FLAIR, GRE, DWI ; sagittal and coronal T1-weighted images. Comparisons: MRI brain dated 2018. Findings: There is no evidence of acute infarct or hemorrhage. 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 Remote bilateral small cerebellar hemisphere infarction. [...] right basalganglia, right MCA territory and left CATALOGUE MAKER territory. Infiltrative FLAIR/T2 hyperintense signal within the right posterior centrum semiovale associated with the areas of prior infarction, nonspecific however more conspicuous in the interval. Findings may reflect sequelae of prior infarction and microvascular ischemic changes however infiltrative lesion versus inflammatory changes cannot be excluded. Recommend repeat examination after the administration of contrast material versus short interval follow-up. Signed: Patricia Del Valle MDReport Verified Date/Time: 05/09/2019 02:31:29 URINALYSIS W/ REFLEX URINE [id number] 21:42:00 Test Item Value Reference Range Comments COLOR (BEAKER) (test rzfg=067) Yellow CLARITY (BEAKER) (test lktr=938) Hazy SPECIFIC GRAVITY UA (BEAKER) (test daky=926) 1.011 1.001-1.035 PH UA (BEAKER) (test xgxd=286) 6.0 5.0-8.0 PROTEIN UA (BEAKER) (test nrzz=259) 20 mg/dL Negative GLUCOSE UA (BEAKER) (test gcfa=107) Negative Negative KETONES UA (BEAKER) (test hllq=408) Negative Negative BILIRUBIN UA (BEAKER) (test kwhy=355) Negative Negative BLOOD UA (BEAKER) (test zcpi=474) Trace Negative NITRITE UA (BEAKER) (test aqoe=675) Negative Negative LEUKOCYTE ESTERASE UA (BEAKER) (test onsm=943) Moderate Negative UROBILINOGEN UA (BEAKER) (test geus=229) 0.2 mg/dL 0.2-1.0 RBC UA (BEAKER) (test adpb=680) 5 /HPF WBC UA (BEAKER) (test smef=677) 56 /HPF SQUAMOUS EPITHELIAL (BEAKER) (test ccgd=587) 2 /HPF SOURCE(BEAKER) (test twdt=4207) B-TYPE NATRIURETIC FACTOR (BNP)2019-05-08 19:04:00 Test Item Value Reference Range Comments B-TYPE NATRIURETIC PEPTIDE (BEAKER) (test kotr=001) 77 pg/mL 0-100 TROPONIN [id number] 19:04:00 Test Item Value Reference Range Comments TROPONIN I (BEAKER) (test fsnu=836) < ng/mL 0.00-0.03 Troponin I (TnI) levels [...] failure, acidosis, acute neurological disease, and persistent tachyarrhythmia.[id number] 19:00:00 Test Item Value Reference Range Comments PROTIME (BEAKER) (test icvz=275) 18.0 seconds 11.9-14.2 INR (BEAKER) (test pwmk=569) 1.6 <=5.9 PARTIAL THROMBOPLASTIN TIME (BEAKER) (test 30.2 seconds 22.5-36.0 cvtg=101) Effective 12/06/2018: PT Reference Range ChangeNew: 11.9-14.2 Previous: 11.7- 14.7RECOMMENDED COUMADIN/WARFARIN INR THERAPY RANGESSTANDARD DOSE: 2.0-3.0 Includes: PROPHYLAXIS for venous thrombosis, systemic embolization; TREATMENT for venous thrombosis and/or pulmonary embolus.HIGH RISK: Target INR is2.5-3.5 for patients wiht mechanical heart valves.[id number] 18:58:00 Test Item Value Reference Range Comments MAGNESIUM (BEAKER) (test 2.1 mg/dL 1.6-2.6 Specimen slightly hemolyzed cbds=406) [id number] 18:58:00 Test Item Value Reference Range Comments PHOSPHORUS (BEAKER) (test 3.4 mg/dL 2.3-4.7 Specimen slightly hemolyzed kfmk=363) BASIC METABOLIC [id number] 18:58:00 Test Item Value Reference Range Comments SODIUM (BEAKER) (test 142 meq/L 136-145 nfdb=140) POTASSIUM (BEAKER) (test 3.7 meq/L 3.5-5.1 Specimen slightly rcop=075) hemolyzed CHLORIDE (BEAKER) (test 107 meq/L 98-107 zcxl=003) CO2 (BEAKER) (test 29 meq/L 22-29 bity=940) BLOOD UREA NITROGEN 18 mg/dL 7-21 (BEAKER) (test vics=077) CREATININE (BEAKER) (test 1.14 mg/dL 0.57-1.25 Specimen slightly ittg=723) hemolyzed GLUCOSE RANDOM (BEAKER) 102 mg/dL 70-105 (test duug=100) CALCIUM (BEAKER) (test 8.8 mg/dL 8.4-10.2 ccmv=694) EGFR (BEAKER) (test 67 mL/min/1.73 sq m ESTIMATED GFR IS NOT ufrf=0114) ACCURATE CREATININE CLEARANCE IN PREDICTING GLOMERULAR FILTRATION RATE. ESTIMATED GFR IS NOT APPLICABLE FOR DIALYSIS PATIENTS. CREATINE KINASE (CK)2019-05-08 18:58:00 Test Item Value Reference Range Comments CREATINE KINASE TOTAL (BEAKER) (test naaw=451) 63 U/L 29-200 CT, BRAIN, WITHOUT [id number] 18:57:00Reason for exam:->EYE PROBLEMWhat is the patient's [...] No acute intracranial hemorrhage. Signed: Nicole Gutierrez Verified Date/Time: 05/08/2019 18:57:38 CBC W/PLT COUNT & AUTO [id number] 18:41:00 Test Item Value Reference Range Comments WHITE BLOOD CELL COUNT (BEAKER) (test eokp=566) 7.3 K/ L 3.5-10.5 RED BLOOD CELL COUNT (BEAKER) (test eqac=097) 3.89 M/ L 4.63-6.08 HEMOGLOBIN (BEAKER) (test pzrd=469) 11.6 GM/DL 13.7-17.5 HEMATOCRIT (BEAKER) (test awfy=671) 36.1 % 40.1-51.0 MEAN CORPUSCULAR VOLUME (BEAKER) (test nmye=995) 92.8 fL 79.0-92.2 MEAN CORPUSCULAR HEMOGLOBIN (BEAKER) (test 29.8 pg 25.7-32.2 xtja=166) MEAN CORPUSCULAR HEMOGLOBIN CONC (BEAKER) (test 32.1 GM/DL 32.3-36.5 enkn=172) RED CELL DISTRIBUTION WIDTH (BEAKER) (test 13.5 % 11.6-14.4 okwu=835) PLATELET COUNT (BEAKER) (test fspw=389) 125 K/CU MM 150-450 MEAN PLATELET VOLUME (BEAKER) (test wvji=273) 10.0 fL 9.4-12.4 NUCLEATED RED BLOOD CELLS (BEAKER) (test 0 /100 WBC 0-0 yadb=596) NEUTROPHILS RELATIVE PERCENT (BEAKER) (test 59 % fezr=840) LYMPHOCYTES RELATIVE PERCENT (BEAKER) (test 27 % khsw=774) MONOCYTES RELATIVE PERCENT (BEAKER) (test 9 % gscx=751) EOSINOPHILS RELATIVE PERCENT (BEAKER) (test 4 % vidr=939) BASOPHILS RELATIVE PERCENT (BEAKER) (test 1 % mgxc=680) NEUTROPHILS ABSOLUTE COUNT (BEAKER) (test 4.28 K/ L 1.78-5.38 xrqh=722) LYMPHOCYTES ABSOLUTE COUNT (BEAKER) (test 1.94 K/ L 1.32-3.57 hslu=259) MONOCYTES ABSOLUTE COUNT (BEAKER) (test 0.67 K/ L 0.30-0.82 ghdr=075) EOSINOPHILS ABSOLUTE COUNT (BEAKER) (test 0.29 K/ L 0.04-0.54 xjus=105) BASOPHILS ABSOLUTE COUNT (BEAKER) (test 0.09 K/ L 0.01-0.08 mceu=770) IMMATURE GRANULOCYTES-RELATIVE PERCENT (BEAKER) 0 % 0-1 (test neqf=1729) [id number] 06:29:00 Test Item Value Reference Range Comments POTASSIUM (BEAKER) (test 3.8 meq/L 3.5-5.1 Specimen slightly hemolyzed ikjr=222) BASIC METABOLIC [id number] 06:24:00 Test Item Value Reference Range Comments SODIUM (BEAKER) (test 140 meq/L 136-145 civr=884) POTASSIUM (BEAKER) (test 3.4 meq/L 3.5-5.1 cpoi=430) CHLORIDE (BEAKER) (test 105 meq/L 98-107 nizb=066) CO2 (BEAKER) (test 26 meq/L 22-29 whkf=574) BLOOD UREA NITROGEN 21 mg/dL 7-21 (BEAKER) (test vnvj=071) CREATININE (BEAKER) (test 1.23 mg/dL 0.57-1.25 djpy=907) GLUCOSE RANDOM (BEAKER) 93 mg/dL 70-105 (test miao=765) CALCIUM (BEAKER) (test 9.2 mg/dL 8.4-10.2 imwq=653) EGFR (BEAKER) (test 62 mL/min/1.73 sq m ESTIMATED GFR IS NOT fwxg=5226) ACCURATE CREATININE CLEARANCE IN PREDICTING GLOMERULAR FILTRATION RATE. ESTIMATED GFR IS NOT APPLICABLE FOR DIALYSIS PATIENTS. CBC W/PLT COUNT & AUTO [id number] 05:59:00 Test Item Value Reference Range Comments WHITE BLOOD CELL COUNT (BEAKER) (test almh=863) 7.3 K/ L 3.5-10.5 RED BLOOD CELL COUNT (BEAKER) (test uixp=703) 4.13 M/ L 4.63-6.08 HEMOGLOBIN (BEAKER) (test zjzp=781) 12.7 GM/DL 13.7-17.5 HEMATOCRIT (BEAKER) (test btnw=263) 36.7 % 40.1-51.0 MEAN CORPUSCULAR VOLUME (BEAKER) (test iyym=782) 88.9 fL 79.0-92.2 MEAN CORPUSCULAR HEMOGLOBIN (BEAKER) (test 30.8 pg 25.7-32.2 evsw=876) MEAN CORPUSCULAR HEMOGLOBIN CONC (BEAKER) (test 34.6 GM/DL 32.3-36.5 akzu=305) RED CELL DISTRIBUTION WIDTH (BEAKER) (test 13.3 % 11.6-14.4 hpfl=989) PLATELET COUNT (BEAKER) (test jytg=079) 195 K/CU MM 150-450 MEAN PLATELET VOLUME (BEAKER) (test sfpb=190) 9.6 fL 9.4-12.4 NEUTROPHILS RELATIVE PERCENT (BEAKER) (test 54 % tahe=497) LYMPHOCYTES RELATIVE PERCENT (BEAKER) (test 27 % rhls=099) MONOCYTES RELATIVE PERCENT (BEAKER) (test 13 % jxwk=218) EOSINOPHILS RELATIVE PERCENT (BEAKER) (test 6 % zxeo=923) BASOPHILS RELATIVE PERCENT (BEAKER) (test 1 % wbkk=859) NEUTROPHILS ABSOLUTE COUNT (BEAKER) (test 3.93 K/ L 1.78-5.38 phww=730) LYMPHOCYTES ABSOLUTE COUNT (BEAKER) (test 1.94 K/ L 1.32-3.57 pnkk=001) MONOCYTES ABSOLUTE COUNT (BEAKER) (test 0.91 K/ L 0.30-0.82 mwfp=692) EOSINOPHILS ABSOLUTE COUNT (BEAKER) (test 0.41 K/ L 0.04-0.54 ddfr=748) BASOPHILS ABSOLUTE COUNT (BEAKER) (test 0.08 K/ L 0.01-0.08 gsvf=016) IMMATURE GRANULOCYTES-RELATIVE PERCENT (BEAKER) 0 % 0-1 (test agji=7082) BASIC METABOLIC [id number] 06:02:00 Test Item Value Reference Range Comments SODIUM (BEAKER) (test 140 meq/L 136-145 bhqz=695) POTASSIUM (BEAKER) (test 3.8 meq/L 3.5-5.1 Specimen slightly jdvg=253) hemolyzed CHLORIDE (BEAKER) (test 102 meq/L 98-107 jnca=878) CO2 (BEAKER) (test 28 meq/L 22-29 efsi=351) BLOOD UREA NITROGEN 21 mg/dL 7-21 (BEAKER) (test defw=999) CREATININE (BEAKER) (test 1.25 mg/dL 0.57-1.25 Specimen slightly dtxg=486) hemolyzed GLUCOSE RANDOM (BEAKER) 82 mg/dL 70-105 (test hiji=031) CALCIUM (BEAKER) (test 8.9 mg/dL 8.4-10.2 zhgp=643) EGFR (BEAKER) (test 61 mL/min/1.73 sq m ESTIMATED GFR IS NOT jfmi=4806) ACCURATE CREATININE CLEARANCE IN PREDICTING GLOMERULAR FILTRATION RATE. ESTIMATED GFR IS NOT APPLICABLE FOR DIALYSIS PATIENTS. CBC W/PLT COUNT & AUTO [id number] 05:44:00 Test Item Value Reference Range Comments WHITE BLOOD CELL COUNT (BEAKER) (test alev=586) 10.2 K/ L 3.5-10.5 RED BLOOD CELL COUNT (BEAKER) (test fima=463) 4.23 M/ L 4.63-6.08 HEMOGLOBIN (BEAKER) (test usqz=867) 13.0 GM/DL 13.7-17.5 HEMATOCRIT (BEAKER) (test dfny=908) 38.2 % 40.1-51.0 MEAN CORPUSCULAR VOLUME (BEAKER) (test jknp=374) 90.3 fL 79.0-92.2 MEAN CORPUSCULAR HEMOGLOBIN (BEAKER) (test 30.7 pg 25.7-32.2 qzdt=640) MEAN CORPUSCULAR HEMOGLOBIN CONC (BEAKER) (test 34.0 GM/DL 32.3-36.5 oivs=996) RED CELL DISTRIBUTION WIDTH (BEAKER) (test 13.3 % 11.6-14.4 rkvq=970) PLATELET COUNT (BEAKER) (test qiky=726) 220 K/CU MM 150-450 MEAN PLATELET VOLUME (BEAKER) (test wujc=134) 10.0 fL 9.4-12.4 NEUTROPHILS RELATIVE PERCENT (BEAKER) (test 66 % arrr=361) LYMPHOCYTES RELATIVE PERCENT (BEAKER) (test 18 % rare=163) MONOCYTES RELATIVE PERCENT (BEAKER) (test 12 % uncy=271) EOSINOPHILS RELATIVE PERCENT (BEAKER) (test 3 % nvwo=418) BASOPHILS RELATIVE PERCENT (BEAKER) (test 1 % noeg=640) NEUTROPHILS ABSOLUTE COUNT (BEAKER) (test 6.77 K/ L 1.78-5.38 bhvx=360) LYMPHOCYTES ABSOLUTE COUNT (BEAKER) (test 1.88 K/ L 1.32-3.57 msto=253) MONOCYTES ABSOLUTE COUNT (BEAKER) (test 1.21 K/ L 0.30-0.82 jidw=663) EOSINOPHILS ABSOLUTE COUNT (BEAKER) (test 0.30 K/ L 0.04-0.54 kamq=475) BASOPHILS ABSOLUTE COUNT (BEAKER) (test 0.06 K/ L 0.01-0.08 ztox=779) IMMATURE GRANULOCYTES-RELATIVE PERCENT (BEAKER) 0 % 0-1 (test qisc=2883) URINALYSIS W/ REFLEX URINE [id number] 14:59:00 Test Item Value Reference Range Comments COLOR (BEAKER) (test stld=966) Yellow CLARITY (BEAKER) (test rumg=051) Slightly Cloudy SPECIFIC GRAVITY UA (BEAKER) (test mxzi=279) 1.015 1.005-1.030 PH UA (BEAKER) (test eevk=967) 6.0 5.0-9.0 PROTEIN UA (BEAKER) (test bgxs=987) 30 mg/dL Negative GLUCOSE UA (BEAKER) (test thde=777) Negative Negative KETONES UA (BEAKER) (test ijrj=513) Negative Negative BILIRUBIN UA (BEAKER) (test vtgl=883) Negative Negative BLOOD UA (BEAKER) (test ctxc=037) Large Negative NITRITE UA (BEAKER) (test glgf=540) Negative Negative LEUKOCYTE ESTERASE UA (BEAKER) (test Large Negative rvyc=429) UROBILINOGEN UA (BEAKER) (test nuqp=437) 0.2 mg/dL 0.2-1.0 BACTERIA (BEAKER) (test xuuw=812) Many RBC UA-MANUAL (BEAKER) (test gltv=9387) 20-50 /HPF WBC UA-MANUAL (BEAKER) (test criq=6973) >100 /HPF SQUAMOUS EPITHELIAL MANUAL (BEAKER) (test <5 /HPF cmhh=2137) SOURCE(BEAKER) (test vksm=3625) BASIC METABOLIC [id number] 05:28:00 Test Item Value Reference Range Comments SODIUM (BEAKER) (test 140 meq/L 136-145 xfim=451) POTASSIUM (BEAKER) (test 3.8 meq/L 3.5-5.1 Specimen slightly uzgg=911) hemolyzed CHLORIDE (BEAKER) (test 103 meq/L 98-107 zwrw=017) CO2 (BEAKER) (test 30 meq/L 22-29 hhjk=835) BLOOD UREA NITROGEN 27 mg/dL 7-21 (BEAKER) (test zoim=562) CREATININE (BEAKER) (test 1.36 mg/dL 0.57-1.25 Specimen slightly hmbx=317) hemolyzed GLUCOSE RANDOM (BEAKER) 96 mg/dL 70-105 (test ylik=299) CALCIUM (BEAKER) (test 9.2 mg/dL 8.4-10.2 sbcb=873) EGFR (BEAKER) (test 55 mL/min/1.73 sq m ESTIMATED GFR IS NOT ffat=7233) ACCURATE CREATININE CLEARANCE IN PREDICTING GLOMERULAR FILTRATION RATE. ESTIMATED GFR IS NOT APPLICABLE FOR DIALYSIS PATIENTS. Specimen slightly ictericCBC W/PLT COUNT & AUTO [id number] 05:05 :00 Test Item Value Reference Range Comments WHITE BLOOD CELL COUNT (BEAKER) (test pevz=598) 9.9 K/ L 3.5-10.5 RED BLOOD CELL COUNT (BEAKER) (test ysum=313) 4.09 M/ L 4.63-6.08 HEMOGLOBIN (BEAKER) (test bswb=208) 12.4 GM/DL 13.7-17.5 HEMATOCRIT (BEAKER) (test hded=116) 36.9 % 40.1-51.0 MEAN CORPUSCULAR VOLUME (BEAKER) (test gcgy=894) 90.2 fL 79.0-92.2 MEAN CORPUSCULAR HEMOGLOBIN (BEAKER) (test 30.3 pg 25.7-32.2 takz=948) MEAN CORPUSCULAR HEMOGLOBIN CONC (BEAKER) (test 33.6 GM/DL 32.3-36.5 vuya=248) RED CELL DISTRIBUTION WIDTH (BEAKER) (test 13.0 % 11.6-14.4 jymk=936) PLATELET COUNT (BEAKER) (test umml=204) 218 K/CU MM 150-450 MEAN PLATELET VOLUME (BEAKER) (test ttfw=977) 9.4 fL 9.4-12.4 NEUTROPHILS RELATIVE PERCENT (BEAKER) (test 64 % ipuj=330) LYMPHOCYTES RELATIVE PERCENT (BEAKER) (test 21 % xxcx=014) MONOCYTES RELATIVE PERCENT (BEAKER) (test 9 % powo=749) EOSINOPHILS RELATIVE PERCENT (BEAKER) (test 4 % qaxm=550) BASOPHILS RELATIVE PERCENT (BEAKER) (test 1 % kdrf=112) NEUTROPHILS ABSOLUTE COUNT (BEAKER) (test 6.38 K/ L 1.78-5.38 zewy=906) LYMPHOCYTES ABSOLUTE COUNT (BEAKER) (test 2.09 K/ L 1.32-3.57 galo=192) MONOCYTES ABSOLUTE COUNT (BEAKER) (test 0.93 K/ L 0.30-0.82 tyex=923) EOSINOPHILS ABSOLUTE COUNT (BEAKER) (test 0.43 K/ L 0.04-0.54 dvmb=358) BASOPHILS ABSOLUTE COUNT (BEAKER) (test 0.08 K/ L 0.01-0.08 skky=835) IMMATURE GRANULOCYTES-RELATIVE PERCENT (BEAKER) 0 % 0-1 (test pqvh=5886) URINALYSIS [id number] 13:39:00 Test Item Value Reference Range Comments RBC UA (BEAKER) (test wkyi=952) 20 /HPF WBC UA (BEAKER) (test mwtu=501) > /HPF BACTERIA (BEAKER) (test mwwf=196) Many SQUAMOUS EPITHELIAL (BEAKER) (test wses=482) < /HPF URINALYSIS WITH MICROSCOPIC IF [id number] 13:39:00 Test Item Value Reference Range Comments COLOR (BEAKER) (test esot=876) Yellow CLARITY (BEAKER) (test swsn=910) Cloudy SPECIFIC GRAVITY UA (BEAKER) (test yexn=300) 1.015 1.005-1.030 PH UA (BEAKER) (test sntb=683) 6.5 5.0-9.0 PROTEIN UA (BEAKER) (test abvf=752) 100 mg/dL Negative GLUCOSE UA (BEAKER) (test ygjm=411) Negative Negative KETONES UA (BEAKER) (test pdfw=379) Negative Negative BILIRUBIN UA (BEAKER) (test nutn=142) Negative Negative BLOOD UA (BEAKER) (test lcjj=812) Large Negative NITRITE UA (BEAKER) (test adxa=936) Negative Negative LEUKOCYTE ESTERASE UA (BEAKER) (test yiwo=773) Moderate Negative UROBILINOGEN UA (BEAKER) (test sole=341) 0.2 mg/dL 0.2-1.0 SOURCE(BEAKER) (test abqw=9655) RAD, ABDOMEN/KUB, 1 VIEW [id number] 22:26:00Reason for exam:->back pain, constipationShould this be [...] Mccurdy MDReport Verified Date/Time:02/24/2019 22:26:00 Reading Location: [address] Reading Room Electronically signed by: DANNY MCCURDY M.D. on 10:26 PMCOMPREHENSIVE METABOLIC [id number] 06:16:00 Test Item Value Reference Range Comments TOTAL PROTEIN (BEAKER) 6.4 gm/dL 6.0-8.3 (test edjh=512) ALBUMIN (BEAKER) (test 4.0 g/dL 3.5-5.0 zhbl=1815) ALKALINE PHOSPHATASE 110 U/L 40-150 (BEAKER) (test igmq=702) BILIRUBIN TOTAL (BEAKER) 1.4 mg/dL 0.2-1.2 (test laru=597) SODIUM (BEAKER) (test 142 meq/L 136-145 wgai=094) POTASSIUM (BEAKER) (test 3.6 meq/L 3.5-5.1 tmar=210) CHLORIDE (BEAKER) (test 104 meq/L 98-107 heuv=180) CO2 (BEAKER) (test 29 meq/L 22-29 yedx=648) BLOOD UREA NITROGEN 14 mg/dL 7-21 (BEAKER) (test tvor=791) CREATININE (BEAKER) (test 1.11 mg/dL 0.57-1.25 mihq=304) GLUCOSE RANDOM (BEAKER) 86 mg/dL 70-105 (test zthf=218) CALCIUM (BEAKER) (test 8.7 mg/dL 8.4-10.2 qker=119) AST (SGOT) (BEAKER) (test 47 U/L 5-34 jfoa=049) ALT (SGPT) (BEAKER) (test 35 U/L 6-55 decc=424) EGFR (BEAKER) (test 70 mL/min/1.73 sq m ESTIMATED GFR IS NOT juhv=4622) ACCURATE CREATININE CLEARANCE IN PREDICTING GLOMERULAR FILTRATION RATE. ESTIMATED GFR IS NOT APPLICABLE FOR DIALYSIS PATIENTS. CBC W/PLT COUNT & AUTO [id number] 05:59:00 Test Item Value Reference Range Comments WHITE BLOOD CELL COUNT (BEAKER) (test voro=264) 6.1 K/ L 3.5-10.5 RED BLOOD CELL COUNT (BEAKER) (test jiux=128) 4.04 M/ L 4.63-6.08 HEMOGLOBIN (BEAKER) (test cyng=455) 12.2 GM/DL 13.7-17.5 HEMATOCRIT (BEAKER) (test kxwy=039) 36.2 % 40.1-51.0 MEAN CORPUSCULAR VOLUME (BEAKER) (test xjph=305) 89.6 fL 79.0-92.2 MEAN CORPUSCULAR HEMOGLOBIN (BEAKER) (test 30.2 pg 25.7-32.2 sxsq=017) MEAN CORPUSCULAR HEMOGLOBIN CONC (BEAKER) (test 33.7 GM/DL 32.3-36.5 jwmw=172) RED CELL DISTRIBUTION WIDTH (BEAKER) (test 12.6 % 11.6-14.4 saby=185) PLATELET COUNT (BEAKER) (test ushm=248) 182 K/CU MM 150-450 MEAN PLATELET VOLUME (BEAKER) (test phtd=160) 9.8 fL 9.4-12.4 NEUTROPHILS RELATIVE PERCENT (BEAKER) (test 51 % aklu=908) LYMPHOCYTES RELATIVE PERCENT (BEAKER) (test 33 % gcvr=726) MONOCYTES RELATIVE PERCENT (BEAKER) (test 9 % afxn=942) EOSINOPHILS RELATIVE PERCENT (BEAKER) (test 6 % mhlv=480) BASOPHILS RELATIVE PERCENT (BEAKER) (test 1 % mxin=459) NEUTROPHILS ABSOLUTE COUNT (BEAKER) (test 3.08 K/ L 1.78-5.38 wguv=389) LYMPHOCYTES ABSOLUTE COUNT (BEAKER) (test 1.98 K/ L 1.32-3.57 qtud=261) MONOCYTES ABSOLUTE COUNT (BEAKER) (test 0.55 K/ L 0.30-0.82 xwzw=126) EOSINOPHILS ABSOLUTE COUNT (BEAKER) (test 0.35 K/ L 0.04-0.54 ylos=140) BASOPHILS ABSOLUTE COUNT (BEAKER) (test 0.07 K/ L 0.01-0.08 puie=137) IMMATURE GRANULOCYTES-RELATIVE PERCENT (BEAKER) 0 % 0-1 (test nggj=7548) [id number] 06:58:00 Test Item Value Reference Range Comments PHOSPHORUS (BEAKER) (test jlrd=781) 4.1 mg/dL 2.3-4.7 [id number] 06:58:00 Test Item Value Reference Range Comments MAGNESIUM (BEAKER) (test kumw=057) 2.1 mg/dL 1.6-2.6 BASIC METABOLIC [id number] 06:58:00 Test Item Value Reference Range Comments SODIUM (BEAKER) (test 140 meq/L 136-145 azgf=011) POTASSIUM (BEAKER) (test 3.8 meq/L 3.5-5.1 gskl=767) CHLORIDE (BEAKER) (test 105 meq/L 98-107 kbsg=991) CO2 (BEAKER) (test 25 meq/L 22-29 vsnz=428) BLOOD UREA NITROGEN 19 mg/dL 7-21 (BEAKER) (test btgi=747) CREATININE (BEAKER) (test 1.09 mg/dL 0.57-1.25 gnub=498) GLUCOSE RANDOM (BEAKER) 90 mg/dL 70-105 (test ujyx=555) CALCIUM (BEAKER) (test 8.9 mg/dL 8.4-10.2 mbxj=662) EGFR (BEAKER) (test 71 mL/min/1.73 sq m ESTIMATED GFR IS NOT hukf=6951) ACCURATE CREATININE CLEARANCE IN PREDICTING GLOMERULAR FILTRATION RATE. ESTIMATED GFR IS NOT APPLICABLE FOR DIALYSIS PATIENTS. CBC W/PLT COUNT & AUTO [id number] 05:37:00 Test Item Value Reference Range Comments WHITE BLOOD CELL COUNT (BEAKER) (test pusb=137) 5.7 K/ L 3.5-10.5 RED BLOOD CELL COUNT (BEAKER) (test jczh=681) 3.87 M/ L 4.63-6.08 HEMOGLOBIN (BEAKER) (test aoom=542) 11.6 GM/DL 13.7-17.5 HEMATOCRIT (BEAKER) (test pmmi=426) 35.4 % 40.1-51.0 MEAN CORPUSCULAR VOLUME (BEAKER) (test duie=708) 91.5 fL 79.0-92.2 MEAN CORPUSCULAR HEMOGLOBIN (BEAKER) (test 30.0 pg 25.7-32.2 ketv=615) MEAN CORPUSCULAR HEMOGLOBIN CONC (BEAKER) (test 32.8 GM/DL 32.3-36.5 wwwd=182) RED CELL DISTRIBUTION WIDTH (BEAKER) (test 12.8 % 11.6-14.4 zhsj=203) PLATELET COUNT (BEAKER) (test pwft=027) 150 K/CU MM 150-450 MEAN PLATELET VOLUME (BEAKER) (test qqfy=027) 10.3 fL 9.4-12.4 NUCLEATED RED BLOOD CELLS (BEAKER) (test 0 /100 WBC 0-0 focw=112) NEUTROPHILS RELATIVE PERCENT (BEAKER) (test 51 % kxls=490) LYMPHOCYTES RELATIVE PERCENT (BEAKER) (test 32 % hstd=191) MONOCYTES RELATIVE PERCENT (BEAKER) (test 10 % gcjj=248) EOSINOPHILS RELATIVE PERCENT (BEAKER) (test 6 % lsnu=926) BASOPHILS RELATIVE PERCENT (BEAKER) (test 1 % pkly=871) NEUTROPHILS ABSOLUTE COUNT (BEAKER) (test 2.90 K/ L 1.78-5.38 zbil=428) LYMPHOCYTES ABSOLUTE COUNT (BEAKER) (test 1.85 K/ L 1.32-3.57 pfny=158) MONOCYTES ABSOLUTE COUNT (BEAKER) (test 0.56 K/ L 0.30-0.82 fahu=384) EOSINOPHILS ABSOLUTE COUNT (BEAKER) (test 0.35 K/ L 0.04-0.54 cplu=526) BASOPHILS ABSOLUTE COUNT (BEAKER) (test 0.05 K/ L 0.01-0.08 zodm=636) IMMATURE GRANULOCYTES-RELATIVE PERCENT (BEAKER) 0 % 0-1 (test cokj=8814) BLOOD [id number] 08:01:00 Test Item Value Reference Range Comments CULTURE (BEAKER) (test lmuv=0392) No growth in 5 days BLOOD [id number] 08:01:00 Test Item Value Reference Range Comments CULTURE (BEAKER) (test gbpj=8876) No growth in 5 days [id number] 05:17:00 Test Item Value Reference Range Comments PHOSPHORUS (BEAKER) (test hhcz=221) 4.4 mg/dL 2.3-4.7 [id number] 05:17:00 Test Item Value Reference Range Comments MAGNESIUM (BEAKER) (test skhs=472) 2.0 mg/dL 1.6-2.6 BASIC METABOLIC [id number] 05:17:00 Test Item Value Reference Range Comments SODIUM (BEAKER) (test 141 meq/L 136-145 boea=096) POTASSIUM (BEAKER) (test 3.5 meq/L 3.5-5.1 jydw=297) CHLORIDE (BEAKER) (test 105 meq/L 98-107 trzo=762) CO2 (BEAKER) (test 30 meq/L 22-29 wzge=112) BLOOD UREA NITROGEN 18 mg/dL 7-21 (BEAKER) (test fool=481) CREATININE (BEAKER) (test 0.98 mg/dL 0.57-1.25 mryn=491) GLUCOSE RANDOM (BEAKER) 97 mg/dL 70-105 (test uetp=068) CALCIUM (BEAKER) (test 8.9 mg/dL 8.4-10.2 jeir=425) EGFR (BEAKER) (test 80 mL/min/1.73 sq m ESTIMATED GFR IS NOT kmfm=3489) ACCURATE CREATININE CLEARANCE IN PREDICTING GLOMERULAR FILTRATION RATE. ESTIMATED GFR IS NOT APPLICABLE FOR DIALYSIS PATIENTS. CBC W/PLT COUNT & AUTO [id number] 04:43:00 Test Item Value Reference Range Comments WHITE BLOOD CELL COUNT (BEAKER) (test nxec=279) 5.0 K/ L 3.5-10.5 RED BLOOD CELL COUNT (BEAKER) (test thad=948) 3.84 M/ L 4.63-6.08 HEMOGLOBIN (BEAKER) (test llbz=533) 11.6 GM/DL 13.7-17.5 HEMATOCRIT (BEAKER) (test qvnj=460) 33.8 % 40.1-51.0 MEAN CORPUSCULAR VOLUME (BEAKER) (test zlre=628) 88.0 fL 79.0-92.2 MEAN CORPUSCULAR HEMOGLOBIN (BEAKER) (test 30.2 pg 25.7-32.2 rssk=766) MEAN CORPUSCULAR HEMOGLOBIN CONC (BEAKER) (test 34.3 GM/DL 32.3-36.5 eqqe=016) RED CELL DISTRIBUTION WIDTH (BEAKER) (test 12.6 % 11.6-14.4 fgfa=365) PLATELET COUNT (BEAKER) (test ytmr=420) 131 K/CU MM 150-450 MEAN PLATELET VOLUME (BEAKER) (test zhhl=211) 10.2 fL 9.4-12.4 NUCLEATED RED BLOOD CELLS (BEAKER) (test 0 /100 WBC 0-0 mgfx=895) NEUTROPHILS RELATIVE PERCENT (BEAKER) (test 45 % uzez=568) LYMPHOCYTES RELATIVE PERCENT (BEAKER) (test 39 % cxtw=891) MONOCYTES RELATIVE PERCENT (BEAKER) (test 9 % bdpk=425) EOSINOPHILS RELATIVE PERCENT (BEAKER) (test 7 % kmdd=876) BASOPHILS RELATIVE PERCENT (BEAKER) (test 1 % ccao=321) NEUTROPHILS ABSOLUTE COUNT (BEAKER) (test 2.26 K/ L 1.78-5.38 mzvq=910) LYMPHOCYTES ABSOLUTE COUNT (BEAKER) (test 1.94 K/ L 1.32-3.57 idze=558) MONOCYTES ABSOLUTE COUNT (BEAKER) (test 0.46 K/ L 0.30-0.82 saci=885) EOSINOPHILS ABSOLUTE COUNT (BEAKER) (test 0.33 K/ L 0.04-0.54 pvlj=255) BASOPHILS ABSOLUTE COUNT (BEAKER) (test 0.04 K/ L 0.01-0.08 csuj=370) IMMATURE GRANULOCYTES-RELATIVE PERCENT (BEAKER) 0 % 0-1 (test rcdl=3782) NV, ANGIOGRAM, [id number] 13:20:00Reason for exam:->CEREBROVASCULAR ACCIDENTFINAL REPORT DATE: 02/14/2019 SURGEON: Adina Khan M.D. FRUIT BAR MAKER: Ruchi Pacheco M.D. PREOPERATIVE DIAGNOSIS: Right MCA [...] femoral artery was performed and a 8 [place] short sheath was inserted and placed on heparinized flush. An 8 [place] Infinity long sheath was advanced into the [...] and a triaxial system comprising an 8 [place] Infinity guide catheter, an Catalyst 7 distal [...] in the same location. This time a Jpcym1rw x 30mm stent retriever was positioned across [...] findings. The catheters were removed. The 8 [place] sheath was removed. Hemostasis was achieved with [...] technical or clinical complications. Signed: Adina Khan Verified Date/Time: 02/19/2019 13:20:54 Reading Location: [facility] Y026 Neuro Angio Reading Room [id number] 08:50:00 Test Item Value Reference Range Comments PHOSPHORUS (BEAKER) (test taiw=827) 3.9 mg/dL 2.3-4.7 [id number] 08:50:00 Test Item Value Reference Range Comments MAGNESIUM (BEAKER) (test dudb=017) 2.1 mg/dL 1.6-2.6 BASIC METABOLIC [id number] 08:50:00 Test Item Value Reference Range Comments SODIUM (BEAKER) (test 137 meq/L 136-145 cdgc=755) POTASSIUM (BEAKER) (test 3.8 meq/L 3.5-5.1 qtfm=838) CHLORIDE (BEAKER) (test 102 meq/L 98-107 wbsd=699) CO2 (BEAKER) (test 24 meq/L 22-29 deas=810) BLOOD UREA NITROGEN 15 mg/dL 7-21 (BEAKER) (test rzht=796) CREATININE (BEAKER) (test 0.98 mg/dL 0.57-1.25 livk=549) GLUCOSE RANDOM (BEAKER) 95 mg/dL 70-105 (test ixhh=092) CALCIUM (BEAKER) (test 9.0 mg/dL 8.4-10.2 sfpd=212) EGFR (BEAKER) (test 80 mL/min/1.73 sq m ESTIMATED GFR IS NOT dxqk=9986) ACCURATE CREATININE CLEARANCE IN PREDICTING GLOMERULAR FILTRATION RATE. ESTIMATED GFR IS NOT APPLICABLE FOR DIALYSIS PATIENTS. CBC W/PLT COUNT & AUTO [id number] 08:10:00 Test Item Value Reference Range Comments WHITE BLOOD CELL COUNT 4.2 K/ L 3.5-10.5 (BEAKER) (test sxuq=845) RED BLOOD CELL COUNT (BEAKER) 4.11 M/ L 4.63-6.08 (test hzeo=535) HEMOGLOBIN (BEAKER) (test 12.4 GM/DL 13.7-17.5 wylv=540) HEMATOCRIT (BEAKER) (test 35.8 % 40.1-51.0 eyrd=739) MEAN CORPUSCULAR VOLUME 87.1 fL 79.0-92.2 Discordant result compares (BEAKER) (test btym=874) with previous; clinical correlation requires. MEAN CORPUSCULAR HEMOGLOBIN 30.2 pg 25.7-32.2 (BEAKER) (test blvw=408) MEAN CORPUSCULAR HEMOGLOBIN 34.6 GM/DL 32.3-36.5 CONC (BEAKER) (test jolk=981) RED CELL DISTRIBUTION WIDTH 12.4 % 11.6-14.4 (BEAKER) (test vyoy=092) PLATELET COUNT (BEAKER) (test 104 K/CU MM 150-450 ayxd=815) MEAN PLATELET VOLUME (BEAKER) 10.2 fL 9.4-12.4 (test rlre=035) NUCLEATED RED BLOOD CELLS 0 /100 WBC 0-0 (BEAKER) (test mzuc=569) NEUTROPHILS RELATIVE PERCENT 48 % (BEAKER) (test dyer=343) LYMPHOCYTES RELATIVE PERCENT 34 % (BEAKER) (test stsw=946) MONOCYTES RELATIVE PERCENT 10 % (BEAKER) (test qztu=313) EOSINOPHILS RELATIVE PERCENT 7 % (BEAKER) (test tyva=863) BASOPHILS RELATIVE PERCENT 1 % (BEAKER) (test gklp=463) NEUTROPHILS ABSOLUTE COUNT 2.03 K/ L 1.78-5.38 (BEAKER) (test txvy=143) LYMPHOCYTES ABSOLUTE COUNT 1.45 K/ L 1.32-3.57 (BEAKER) (test bage=717) MONOCYTES ABSOLUTE COUNT 0.43 K/ L 0.30-0.82 (BEAKER) (test niao=831) EOSINOPHILS ABSOLUTE COUNT 0.28 K/ L 0.04-0.54 (BEAKER) (test mfub=021) BASOPHILS ABSOLUTE COUNT 0.04 K/ L 0.01-0.08 (BEAKER) (test tusy=789) IMMATURE 0 % 0-1 GRANULOCYTES-RELATIVE PERCENT (BEAKER) (test icgh=8762) CT, CHEST, WITH [id number] 09:37:00FINAL REPORT CT Chest, abdomen, and pelvis [...] chest, abdomen , or pelvis. Signed: Adan Talleyeport Verified Date/Time: 2018 09:37:19 Reading Location: [facility] C013X Ortho Consult Reading Room CT, [id number] 09:37:00FINAL REPORT CT Chest, abdomen , and [...] Verified Date/Time: 02/18/2019 09:37:19 Reading Location: [facility] C013X Ortho Consult Reading Room POCT-GLUCOSE [id number] 12:31:00 Test Item Value Reference Range Comments POC-GLUCOSE METER (BEAKER) 94 mg/dL 70-110 TESTED AT [address] (test bpwx=5712) [facility] [address] POCT-GLUCOSE [id number] 06:34:00 Test Item Value Reference Range Comments POC-GLUCOSE METER (BEAKER) 94 mg/dL 70-110 TESTED AT [address] (test egjd=8067) [place] [address] [id number] 06:10:00 Test Item Value Reference Range Comments PHOSPHORUS (BEAKER) (test ktrc=035) 2.5 mg/dL 2.3-4.7 [id number] 06:10:00 Test Item Value Reference Range Comments MAGNESIUM (BEAKER) (test fglv=782) 2.0 mg/dL 1.6-2.6 BASIC METABOLIC [id number] 06:10:00 Test Item Value Reference Range Comments SODIUM (BEAKER) (test 139 meq/L 136-145 jfai=073) POTASSIUM (BEAKER) (test 4.0 meq/L 3.5-5.1 ukur=894) CHLORIDE (BEAKER) (test 109 meq/L 98-107 egpk=664) CO2 (BEAKER) (test 23 meq/L 22-29 rdhp=744) BLOOD UREA NITROGEN 15 mg/dL 7-21 (BEAKER) (test icbk=291) CREATININE (BEAKER) (test 0.89 mg/dL 0.57-1.25 npwc=780) GLUCOSE RANDOM (BEAKER) 93 mg/dL 70-105 (test rlgk=909) CALCIUM (BEAKER) (test 8.1 mg/dL 8.4-10.2 popu=316) EGFR (BEAKER) (test 90 mL/min/1.73 sq m ESTIMATED GFR IS NOT eost=0268) ACCURATE CREATININE CLEARANCE IN PREDICTING GLOMERULAR FILTRATION RATE. ESTIMATED GFR IS NOT APPLICABLE FOR DIALYSIS PATIENTS. TROPONIN [id number] 05:43:00 Test Item Value Reference Range Comments TROPONIN I (BEAKER) (test kdkz=915) 0.09 ng/mL 0.00-0.03 Troponin I (TnI) levels [...] acute neurological disease, and persistent tachyarrhythmia.LACTIC ACID, [id number] 05:24:00 Test Item Value Reference Range Comments LACTATE BLOOD VENOUS (2) (BEAKER) (test 0.5 mmol/L 0.5-2.2 obuj=8550) CBC W/PLT COUNT & AUTO [id number] 04:16:00 Test Item Value Reference Range Comments WHITE BLOOD CELL COUNT (BEAKER) (test xcct=411) 5.5 K/ L 3.5-10.5 RED BLOOD CELL COUNT (BEAKER) (test mlpc=849) 3.28 M/ L 4.63-6.08 HEMOGLOBIN (BEAKER) (test opje=259) 10.0 GM/DL 13.7-17.5 HEMATOCRIT (BEAKER) (test seub=136) 30.0 % 40.1-51.0 MEAN CORPUSCULAR VOLUME (BEAKER) (test mqik=185) 91.5 fL 79.0-92.2 MEAN CORPUSCULAR HEMOGLOBIN (BEAKER) (test 30.5 pg 25.7-32.2 qoll=951) MEAN CORPUSCULAR HEMOGLOBIN CONC (BEAKER) (test 33.3 GM/DL 32.3-36.5 glqg=559) RED CELL DISTRIBUTION WIDTH (BEAKER) (test 12.5 % 11.6-14.4 arcy=738) PLATELET COUNT (BEAKER) (test mczs=164) 62 K/CU MM 150-450 MEAN PLATELET VOLUME (BEAKER) (test bysc=735) 9.9 fL 9.4-12.4 NUCLEATED RED BLOOD CELLS (BEAKER) (test 0 /100 WBC 0-0 rcak=728) NEUTROPHILS RELATIVE PERCENT (BEAKER) (test 54 % jbzi=775) LYMPHOCYTES RELATIVE PERCENT (BEAKER) (test 26 % zxly=409) MONOCYTES RELATIVE PERCENT (BEAKER) (test 14 % ppds=996) EOSINOPHILS RELATIVE PERCENT (BEAKER) (test 6 % yppq=000) BASOPHILS RELATIVE PERCENT (BEAKER) (test 1 % rvcc=873) NEUTROPHILS ABSOLUTE COUNT (BEAKER) (test 2.99 K/ L 1.78-5.38 srys=732) LYMPHOCYTES ABSOLUTE COUNT (BEAKER) (test 1.41 K/ L 1.32-3.57 iwae=343) MONOCYTES ABSOLUTE COUNT (BEAKER) (test ewga=375) 0.74 K/ L 0.30-0.82 EOSINOPHILS ABSOLUTE COUNT (BEAKER) (test 0.32 K/ L 0.04-0.54 iorw=388) BASOPHILS ABSOLUTE COUNT (BEAKER) (test zeuz=978) 0.03 K/ L 0.01-0.08 IMMATURE GRANULOCYTES-RELATIVE PERCENT (AKER) 0 % 0-1 (test ffsm=2077) POCT-GLUCOSE [id number] 00:26:00 Test Item Value Reference Range Comments POC-GLUCOSE METER (BEAKER) 101 mg/dL 70-110 TESTED AT [address] (test bgsk=8175) [place] [address] TROPONIN [id number] 18:22:00 Test Item Value Reference Range Comments TROPONIN I (BEAKER) (test jpvr=021) 0.09 ng/mL 0.00-0.03 Troponin I (TnI) levels [...] failure, acidosis, acute neurological disease, and persistent tachyarrhythmia.[id number] 18:04:00 Test Item Value Reference Range Comments FIBRINOGEN LEVEL (BEAKER) (test dslg=031) 359 mg/dl 225-434 POCT-GLUCOSE [id number] 17:25:00 Test Item Value Reference Range Comments POC-GLUCOSE METER (BEAKER) 83 mg/dL 70-110 TESTED AT [address] (test fwpw=1453) [place] [address] [id number] 16:12:00 Test Item Value Reference Range Comments MAGNESIUM (BEAKER) (test iqie=728) 2.2 mg/dL 1.6-2.6 PERIPHERAL BLOOD SMEAR - HOLD [id number] 14:21:00 Test Item Value Reference Range Comments PERIPHERAL SMEAR SAVE (BEAKER) (test woxr=8911) saved TROPONIN [id number] 13:17:00 Test Item Value Reference Range Comments TROPONIN I (BEAKER) (test rtyi=835) 0.09 ng/mL 0.00-0.03 Troponin I (TnI) levels [...] acidosis, acute neurological disease, and persistent tachyarrhythmia.POCT-GLUCOSE [id number] 12:04:00 Test Item Value Reference Range Comments POC-GLUCOSE METER (BEAKER) 134 mg/dL 70-110 TESTED AT [address] (test cmiy=3401) [facility] [address] RAD, CHEST, 1 VIEW, NON [id number] 11:06:00Reason for exam:->pulmonary congestionShould this be performed [...] reflect atelectasis or pneumonia/ aspiration. Signed: Nicole Gutierrezeport VerifiedDate/Time: 02/16/2019 11:06 :29 Reading Location: [facility] Radiology Reading Room POCT-GLUCOSE [id number] 05:58:00 Test Item Value Reference Range Comments POC-GLUCOSE METER (BEAKER) 74 mg/dL 70-110 TESTED AT [address] (test hvwr=9084) [facility] [address] VANCOMYCIN LEVEL, [id number] 04:01:00 Test Item Value Reference Range Comments VANCOMYCIN TROUGH (BEAKER) (test ezii=732) 10.9 ug/mL 10.0-20.0 [id number] 03:57:00 Test Item Value Reference Range Comments PHOSPHORUS (BEAKER) (test ksdo=055) 1.9 mg/dL 2.3-4.7 [id number] 03:57:00 Test Item Value Reference Range Comments MAGNESIUM (BEAKER) (test zygg=185) 1.7 mg/dL 1.6-2.6 BASIC METABOLIC [id number] 03:57:00 Test Item Value Reference Range Comments SODIUM (BEAKER) (test 138 meq/L 136-145 uuqj=420) POTASSIUM (BEAKER) (test 3.9 meq/L 3.5-5.1 uvel=928) CHLORIDE (BEAKER) (test 108 meq/L 98-107 wvvv=060) CO2 (BEAKER) (test 22 meq/L 22-29 qxpa=305) BLOOD UREA NITROGEN 17 mg/dL 7-21 (BEAKER) (test bgtb=677) CREATININE (BEAKER) (test 1.06 mg/dL 0.57-1.25 jmdu=025) GLUCOSE RANDOM (BEAKER) 93 mg/dL 70-105 (test ahzm=227) CALCIUM (BEAKER) (test 8.4 mg/dL 8.4-10.2 dast=941) EGFR (BEAKER) (test 73 mL/min/1.73 sq m ESTIMATED GFR IS NOT fitr=1250) ACCURATE CREATININE CLEARANCE IN PREDICTING GLOMERULAR FILTRATION RATE. ESTIMATED GFR IS NOT APPLICABLE FOR DIALYSIS PATIENTS. CBC W/PLT COUNT & AUTO [id number] 03:56:00 Test Item Value Reference Range Comments WHITE BLOOD CELL COUNT (BEAKER) (test ugfv=628) 6.2 K/ L 3.5-10.5 RED BLOOD CELL COUNT (BEAKER) (test nmgs=351) 3.25 M/ L 4.63-6.08 HEMOGLOBIN (BEAKER) (test myvh=847) 10.0 GM/DL 13.7-17.5 HEMATOCRIT (BEAKER) (test mgit=718) 29.7 % 40.1-51.0 MEAN CORPUSCULAR VOLUME (BEAKER) (test ubcu=363) 91.4 fL 79.0-92.2 MEAN CORPUSCULAR HEMOGLOBIN (BEAKER) (test 30.8 pg 25.7-32.2 rkoo=188) MEAN CORPUSCULAR HEMOGLOBIN CONC (BEAKER) (test 33.7 GM/DL 32.3-36.5 hqdu=946) RED CELL DISTRIBUTION WIDTH (BEAKER) (test 12.5 % 11.6-14.4 hqyo=655) PLATELET COUNT (BEAKER) (test lgvi=449) 58 K/CU MM 150-450 MEAN PLATELET VOLUME (BEAKER) (test fqzq=425) 10.4 fL 9.4-12.4 NUCLEATED RED BLOOD CELLS (BEAKER) (test 0 /100 WBC 0-0 rgdy=355) NEUTROPHILS RELATIVE PERCENT (BEAKER) (test 63 % tkxt=198) LYMPHOCYTES RELATIVE PERCENT (BEAKER) (test 18 % pyaj=022) MONOCYTES RELATIVE PERCENT (BEAKER) (test 17 % fcxq=390) EOSINOPHILS RELATIVE PERCENT (BEAKER) (test 2 % ldya=297) BASOPHILS RELATIVE PERCENT (BEAKER) (test 1 % xapt=231) NEUTROPHILS ABSOLUTE COUNT (BEAKER) (test 3.88 K/ L 1.78-5.38 izkx=053) LYMPHOCYTES ABSOLUTE COUNT (BEAKER) (test 1.11 K/ L 1.32-3.57 rkry=081) MONOCYTES ABSOLUTE COUNT (BEAKER) (test proo=207) 1.03 K/ L 0.30-0.82 EOSINOPHILS ABSOLUTE COUNT (BEAKER) (test 0.09 K/ L 0.04-0.54 awac=522) BASOPHILS ABSOLUTE COUNT (BEAKER) (test rsrw=147) 0.04 K/ L 0.01-0.08 IMMATURE GRANULOCYTES-RELATIVE PERCENT (BEAKER) 0 % 0-1 (test sljp=4776) LACTIC ACID, [id number] 03:26:00 Test Item Value Reference Range Comments LACTATE BLOOD VENOUS (2) (BEAKER) (test 0.7 mmol/L 0.5-2.2 zznk=4536) TROPONIN [id number] 01:05:00 Test Item Value Reference Range Comments TROPONIN I (BEAKER) (test wyjv=609) 0.14 ng/mL 0.00-0.03 Troponin I (TnI) levels [...] completed or 30 min after intravenous potassium replacement.[id number] 01:01:00 Test Item Value Reference Range Comments POTASSIUM (BEAKER) (test rpou=069) 4.0 meq/L 3.5-5.1 Check Serum Potassium level 2 hours after oral potassium replacement completed or 30 min after intravenous potassium replacement.POCT-GLUCOSE [id number] 00:17:00 Test Item Value Reference Range Comments POC-GLUCOSE METER (BEAKER) 105 mg/dL 70-[address] [facility] [address] (test arqq=9590) [facility] [address] MR, BRAIN, WITHOUT [id number] 19:38:00Reason for exam:-> CEREBROVASCULAR ACCIDENTFINAL REPORT MR, [...] the right. Punctate infarcts of the left CATALOGUE MAKER and posterior circulation territory including the left [...] mass effect. Punctate infarcts of the left CATALOGUE MAKER territory including the left occipital lobe and left cerebellar sphere. Signed: Gia Staton MDReport Verified Date/Time: 02/15/2019 19:38: 56 Reading Location: [address] Neuro Reading Room TROPONIN [id number] 19:30:00 Test Item Value Reference Range Comments TROPONIN I (BEAKER) (test gvjf=893) 0.23 ng/mL 0.00-0.03 Troponin I (TnI) levels [...] completed or 30 min after intravenous potassium replacement.[id number] 19:11:00 Test Item Value Reference Range Comments POTASSIUM (BEAKER) (test rxkr=448) 3.4 meq/L 3.5-5.1 Check Serum Potassium level 2 hours after oral potassium replacement completed or 30 min after intravenous potassium replacement.POCT-GLUCOSE [id number] 18:38:00 Test Item Value Reference Range Comments POC-GLUCOSE METER (BEAKER) 108 mg/dL 70-[address] [facility] [address] (test evgw=6664) [facility] [address] PERIPHERAL BLOOD SMEAR - PATHOLOGIST [id number] 16:30:00 Test Item Value Reference Range Comments WBC MORPHOLOGY (BEAKER) (test Toxic Granulation olah=8474) PERIPHERAL SMR REVIEW (BEAKER) Cell counts confirmed. (test vjbd=4761) [id number]-6407 (BEAKER) Anna Goel M.D. (test goby=6045) (electronic signature) (MANUAL DIFFERENTIAL)2019-02-15 14:22:00 Test Item Value Reference Range Comments NEUTROPHILS - REL (DIFF) (BEAKER) (test ypqv=2082) 74 % LYMPHOCYTES - REL (DIFF) (BEAKER) (test pbhe=7627) 11 % MONOCYTES - REL (DIFF) (BEAKER) (test ssaq=9416) 13 % EOSINOPHILS - REL (DIFF) (BEAKER) (test saqo=4707) 2 % NEUTROPHILS - ABS (DIFF) (BEAKER) (test owyq=0631) 5.03 K/ L 1.80-8.00 LYMPHOCYTES - ABS (DIFF) (BEAKER) (test nbpw=2238) 0.75 K/ L 1.48-4.50 MONOCYTES - ABS (DIFF) (BEAKER) (test jvzf=1384) 0.88 K/ L 0.00-1.30 EOSINOPHILS - ABS (DIFF) (BEAKER) (test afoc=4428) 0.14 K/ L 0.00-0.50 TOTAL COUNTED (BEAKER) (test sqvi=8025) 100 WBC MORPHOLOGY (BEAKER) (test ahbf=376) Normal PLT MORPHOLOGY (BEAKER) (test unmg=196) Normal RBC MORPHOLOGY (BEAKER) (test emiz=929) Normal POCT-GLUCOSE [id number] 12:36:00 Test Item Value Reference Range Comments POC-GLUCOSE METER (BEAKER) 100 mg/dL 70-[address] [facility] [address] (test awnp=5337) [facility] [address] CBC WITH PLATELET COUNT + MANUAL [id number] 11:17:00 Test Item Value Reference Range Comments WHITE BLOOD CELL COUNT (BEAKER) (test conn=963) 6.8 K/ L 3.5-10.5 RED BLOOD CELL COUNT (BEAKER) (test unne=075) 3.84 M/ L 4.63-6.08 HEMOGLOBIN (BEAKER) (test qtte=790) 11.6 GM/DL 13.7-17.5 HEMATOCRIT (BEAKER) (test tryl=059) 35.4 % 40.1-51.0 MEAN CORPUSCULAR VOLUME (BEAKER) (test fxha=651) 92.2 fL 79.0-92.2 MEAN CORPUSCULAR HEMOGLOBIN (BEAKER) (test 30.2 pg 25.7-32.2 cpfl=576) MEAN CORPUSCULAR HEMOGLOBIN CONC (BEAKER) (test 32.8 GM/DL 32.3-36.5 efai=388) RED CELL DISTRIBUTION WIDTH (BEAKER) (test 12.7 % 11.6-14.4 cknu=487) PLATELET COUNT (BEAKER) (test isyj=948) 73 K/CU MM 150-450 MEAN PLATELET VOLUME (BEAKER) (test qfmy=729) 10.4 fL 9.4-12.4 NUCLEATED RED BLOOD CELLS (BEAKER) (test 0 /100 WBC 0-0 xrrz=448) [id number] 11:06:00 Test Item Value Reference Range Comments RPR SCREEN (BEAKER) (test cuyw=493) Nonreactive Nonreactive URINALYSIS W/ [id number] 10:20:00 Test Item Value Reference Range Comments COLOR (BEAKER) (test qdxq=862) Yellow CLARITY (BEAKER) (test dszz=154) Cloudy SPECIFIC GRAVITY UA (BEAKER) (test tjxn=340) 1.021 1.001-1.035 PH UA (BEAKER) (test vckx=331) 5.5 5.0-8.0 PROTEIN UA (BEAKER) (test ekda=312) 50 mg/dL Negative GLUCOSE UA (BEAKER) (test gzku=401) Negative Negative KETONES UA (BEAKER) (test qsng=370) Negative Negative BILIRUBIN UA (BEAKER) (test hnfz=397) Negative Negative BLOOD UA (BEAKER) (test itat=030) Moderate Negative NITRITE UA (BEAKER) (test ddtp=708) Positive Negative LEUKOCYTE ESTERASE UA (BEAKER) (test ddgu=633) Large Negative UROBILINOGEN UA (BEAKER) (test roif=056) 0.2 mg/dL 0.2-1.0 RBC UA (BEAKER) (test whla=812) 877 /HPF WBC UA (BEAKER) (test akjg=957) 186 /HPF MUCUS (BEAKER) (test lszt=8463) Rare SQUAMOUS EPITHELIAL (BEAKER) (test pnww=754) 1 /HPF SOURCE(BEAKER) (test wdbo=5408) URINALYSIS W/ REFLEX URINE [id number] 10:19:00 Test Item Value Reference Range Comments COLOR (BEAKER) (test byeu=684) Yellow CLARITY (BEAKER) (test eawu=941) Cloudy SPECIFIC GRAVITY UA (BEAKER) (test wvvj=712) 1.021 1.001-1.035 PH UA (BEAKER) (test uiqs=200) 5.5 5.0-8.0 PROTEIN UA (BEAKER) (test zvhf=015) 50 mg/dL Negative GLUCOSE UA (BEAKER) (test jbnj=299) Negative Negative KETONES UA (BEAKER) (test pqfy=336) Negative Negative BILIRUBIN UA (BEAKER) (test fmue=039) Negative Negative BLOOD UA (BEAKER) (test xmzb=338) Moderate Negative NITRITE UA (BEAKER) (test soii=130) Positive Negative LEUKOCYTE ESTERASE UA (BEAKER) (test tebz=756) Large Negative UROBILINOGEN UA (BEAKER) (test oejn=133) 0.2 mg/dL 0.2-1.0 RBC UA (BEAKER) (test fuog=084) 877 /HPF WBC UA (BEAKER) (test nyus=727) 186 /HPF MUCUS (BEAKER) (test pdjl=0645) Rare SQUAMOUS EPITHELIAL (BEAKER) (test iiuy=773) 1 /HPF SOURCE(BEAKER) (test kqoa=9184) TROPONIN [id number] 09:07:00 Test Item Value Reference Range Comments TROPONIN I (BEAKER) (test gnlu=712) 0.16 ng/mL 0.00-0.03 Troponin I (TnI) levels [...] acidosis, acute neurological disease, and persistent tachyarrhythmia.HEMOGLOBIN [id number] 09:01:00 Test Item Value Reference Range Comments HEMOGLOBIN A1C (BEAKER) (test onpw=344) 5.6 % 4.3-6.1 LACTIC ACID, [id number] 08:58:00 Test Item Value Reference Range Comments LACTATE BLOOD VENOUS (2) (BEAKER) (test 1.1 mmol/L 0.5-2.2 hdck=8641) RAD, CHEST, 1 VIEW, NON [id number] 08:35:00Reason for exam:->feverShould this be performed at [...] Gutierrez Verified Date/Time: 02/15/2019 08:35:46 Reading Location: [facility] Radiology Reading Room POCT-GLUCOSE [id number] 06:48:00 Test Item Value Reference Range Comments POC-GLUCOSE METER (BEAKER) 106 mg/dL 70-[address] [facility] [address] (test hdvq=8415) [facility] [address] VITAMIN B12 AND [id number] 06:29:00 Test Item Value Reference Range Comments VITAMIN B12 (BEAKER) (test nkdq=134) 343 pg/mL 213-816 FOLATE (BEAKER) (test efgm=086) 15.9 ng/mL >=7.0 LACTIC ACID, [id number] 06:28:00 Test Item Value Reference Range Comments LACTATE BLOOD VENOUS (2) (BEAKER) (test 1.5 mmol/L 0.5-2.2 ggjc=0530) [id number] 04:00:00 Test Item Value Reference Range Comments PROCALCITONIN (BEAKER) (test tcjo=7262) 0.37 ng/mL <0.05 SEPSIS RISK (ng/mL)Low: 0.05-0.50Intermediate: 0.51-2.00High: & gt;=2.01TSH/FREE T4 IF [id number] 03:55:00 Test Item Value Reference Range Comments THYROID STIMULATING HORMONE (BEAKER) (test 0.67 uIU/mL 0.35-4.94 jqty=806) LACTIC ACID, [id number] 03:26:00 Test Item Value Reference Range Comments LACTATE BLOOD VENOUS (2) 0.8 mmol/L 0.5-2.2 Specimen slightly hemolyzed (BEAKER) (test qsag=1850) Specimen slightly ictericCBC W/PLT COUNT & AUTO [id number] 01:55 :00 Test Item Value Reference Range Comments WHITE BLOOD CELL COUNT (BEAKER) (test nirs=222) 12.7 K/ L 3.5-10.5 RED BLOOD CELL COUNT (BEAKER) (test jmry=104) 3.98 M/ L 4.63-6.08 HEMOGLOBIN (BEAKER) (test ngnk=927) 12.1 GM/DL 13.7-17.5 HEMATOCRIT (BEAKER) (test ukkk=185) 36.7 % 40.1-51.0 MEAN CORPUSCULAR VOLUME (BEAKER) (test sfxm=857) 92.2 fL 79.0-92.2 MEAN CORPUSCULAR HEMOGLOBIN (BEAKER) (test 30.4 pg 25.7-32.2 rler=809) MEAN CORPUSCULAR HEMOGLOBIN CONC (BEAKER) (test 33.0 GM/DL 32.3-36.5 rwvm=164) RED CELL DISTRIBUTION WIDTH (BEAKER) (test 12.7 % 11.6-14.4 wkce=474) PLATELET COUNT (BEAKER) (test ulwf=203) 75 K/CU MM 150-450 MEAN PLATELET VOLUME (BEAKER) (test dbzp=770) 9.9 fL 9.4-12.4 NUCLEATED RED BLOOD CELLS (BEAKER) (test 0 /100 WBC 0-0 wean=930) (CELLAVISION MANUAL DIFF)2019-02-15 01:55:00 Test Item Value Reference Range Comments NEUTROPHILS - REL (CELLAVISION)(BEAKER) (test 65 % lekb=7656) LYMPHOCYTES - REL (CELLAVISION)(BEAKER) (test 20 % owuw=7121) MONOCYTES - REL (CELLAVISION)(BEAKER) (test 10 % bkqq=7033) EOSINOPHILS - REL (CELLAVISION)(BEAKER) (test 1 % cmta=7119) BASOPHILS - REL (CELLAVISION)(BEAKER) (test 1 % emwm=8169) BANDS - REL (CELLAVISION)(BEAKER) (test 3 % 0-10 axny=4323) NEUTROPHILS - ABS (CELLAVISION)(BEAKER) (test 8.26 K/ul 1.78-5.38 dges=1012) LYMPHOCYTES - ABS (CELLAVISION)(BEAKER) (test 2.54 K/ul 1.32-3.57 kxhb=5090) MONOCYTES - ABS (CELLAVISION)(BEAKER) (test 1.27 K/uL 0.30-0.82 dyhr=3071) EOSINOPHILS - ABS (CELLAVISION)(BEAKER) (test 0.13 K/uL 0.04-0.54 jtyq=4634) BASOPHILS - ABS (CELLAVISION)(BEAKER) (test 0.13 K/uL 0.01-0.08 cgjm=8440) BANDS - ABS (CELLAVISION)(BEAKER) (test 0.38 K/uL 0.00-0.80 udzw=4323) TOTAL COUNTED (BEAKER) (test khwl=4498) 100 PLT MORPHOLOGY (BEAKER) (test vgpf=633) Normal SMUDGE CELLS (BEAKER) (test iqed=2682) Present ANISOCYTOSIS (BEAKER) (test frea=781) 1+ few MICROCYTES (BEAKER) (test ynyq=381) 1+ few POIKILOCYTES (BEAKER) (test eyoy=338) 2+ moderate SPHEROCYTES (BEAKER) (test ehrz=988) 2+ moderate OVALOCYTES (BEAKER) (test cyvc=414) 2+ moderate TEAR DROP CELLS (BEAKER) (test uxif=973) 2+ moderate PLATELET CONCENTRATION (CELLAVISION)(BEAKER) Decreased (test vseu=1634) Received comment: User comments: Slide comments:TROPONIN [id number] 01:42:00 Test Item Value Reference Range Comments TROPONIN I (BEAKER) (test qans=532) 0.19 ng/mL 0.00-0.03 Troponin I (TnI) levels [...] acute neurological disease, and persistent tachyarrhythmia.BASIC METABOLIC [id number] 01:22:00 Test Item Value Reference Range Comments SODIUM (BEAKER) (test 139 meq/L 136-145 hfdj=261) POTASSIUM (BEAKER) (test 3.6 meq/L 3.5-5.1 ueww=573) CHLORIDE (BEAKER) (test 104 meq/L 98-107 nyxb=215) CO2 (BEAKER) (test 25 meq/L 22-29 zylk=873) BLOOD UREA NITROGEN 15 mg/dL 7-21 (BEAKER) (test qvsw=001) CREATININE (BEAKER) (test 1.16 mg/dL 0.57-1.25 xdfj=465) GLUCOSE RANDOM (BEAKER) 99 mg/dL 70-105 (test vewe=605) CALCIUM (BEAKER) (test 9.1 mg/dL 8.4-10.2 jykd=668) EGFR (BEAKER) (test 66 mL/min/1.73 sq m ESTIMATED GFR IS NOT xnsn=6942) ACCURATE CREATININE CLEARANCE IN PREDICTING GLOMERULAR FILTRATION RATE. ESTIMATED GFR IS NOT APPLICABLE FOR DIALYSIS PATIENTS. Specimen slightly ictericLIPID [id number] 01:22:00 Test Item Value Reference Range Comments TRIGLYCERIDES (BEAKER) (test gaxy=675) 119 mg/dL CHOLESTEROL (BEAKER) (test hlkh=370) 115 mg/dL HDL CHOLESTEROL (BEAKER) (test tnlv=646) 42 mg/dL LDL CHOLESTEROL CALCULATED (BEAKER) (test 49 mg/dL kmyu=062) Triglyceride Reference Range: Low Risk <150 Borderline 150- 199 High Risk 200-499 Very High Risk >=500Cholesterol Reference Range: Low Risk <200 Borderline 200-239 High Risk > 240HDL Cholesterol Reference Range: Low Risk >=60 High Risk <40LDL Cholesterol Reference Range: Optimal <100 Near Optimal 100-129 Borderline 130-159 High 160-189 Very High >=190 Specimen slightly ictericHEPATIC FUNCTION [id number] 01:22: 00 Test Item Value Reference Range Comments TOTAL PROTEIN (BEAKER) (test gbhz=740) 7.2 gm/dL 6.0-8.3 ALBUMIN (BEAKER) (test uomq=8216) 4.1 g/dL 3.5-5.0 BILIRUBIN TOTAL (BEAKER) (test xxce=971) 2.2 mg/dL 0.2-1.2 BILIRUBIN DIRECT (BEAKER) (test bjpu=152) 0.8 mg/dL 0.1-0.5 ALKALINE PHOSPHATASE (BEAKER) (test plah=044) 109 U/L 40-150 AST (SGOT) (BEAKER) (test bguo=441) 23 U/L 5-34 ALT (SGPT) (BEAKER) (test qajz=878) 20 U/L 6-55 Specimen slightly ictericRAD, CHEST, PA OR AP, 1 [id number] 18:34:00Reason for exam:->chest painShould this be performed [...] Verified Date/ Time: 02/14/2019 18:34:55 Reading Location: [facility] C013W Consult Reading Room TROPONIN [id number] 18:31:00 Test Item Value Reference Range Comments TROPONIN I (BEAKER) (test fsco=482) 0.13 ng/mL 0.00-0.03 Troponin I (TnI) levels [...] acute neurological disease, and persistent tachyarrhythmia.BASIC METABOLIC [id number] 18:23:00 Test Item Value Reference Range Comments SODIUM (BEAKER) (test 134 meq/L 136-145 tagp=051) POTASSIUM (BEAKER) (test 3.2 meq/L 3.5-5.1 xisg=583) CHLORIDE (BEAKER) (test 103 meq/L 98-107 pbxt=392) CO2 (BEAKER) (test 24 meq/L 22-29 vnww=995) BLOOD UREA NITROGEN 16 mg/dL 7-21 (BEAKER) (test skmy=791) CREATININE (BEAKER) (test 1.15 mg/dL 0.57-1.25 ncnd=928) GLUCOSE RANDOM (BEAKER) 127 mg/dL 70-105 (test esjc=339) CALCIUM (BEAKER) (test 8.7 mg/dL 8.4-10.2 vdms=598) EGFR (BEAKER) (test 67 mL/min/1.73 sq m ESTIMATED GFR IS NOT yrne=4926) ACCURATE CREATININE CLEARANCE IN PREDICTING GLOMERULAR FILTRATION RATE. ESTIMATED GFR IS NOT APPLICABLE FOR DIALYSIS PATIENTS. PT/[id number] 18:15:00 Test Item Value Reference Range Comments PROTIME (BEAKER) (test fjbq=963) 16.4 seconds 11.9-14.2 INR (BEAKER) (test tjyl=179) 1.4 <=5.9 PARTIAL THROMBOPLASTIN TIME (BEAKER) (test 29.6 seconds 22.5-36.0 agdv=622) Effective 12/06/2018: PT Reference Range ChangeNew: 11.9-14.2 Previous: 11.7- 14.7RECOMMENDED COUMADIN/WARFARIN INR THERAPY RANGESSTANDARD DOSE: 2.0-3.0 Includes: PROPHYLAXIS for venous thrombosis, systemic embolization; TREATMENT for venous thrombosis and/or pulmonary embolus.HIGH RISK: Target INR is2.5-3.5 for patients wiht mechanical heart valves.CT, CTANGIO [id number] 18:14: 00Reason for exam:->l hpFINAL REPORT CT, [...] arteries: Normal contrast opacification of the bilateral CATALOGUE MAKER P1-P2 branches. Venous opacification: Major dural sinuses [...] MDReport Verified Date/Time: 02/14/2019 18:14:44 Reading Location: [address] Neuro Reading Room CT, CAROTID, [id number] 18:14:00Reason for exam:->Ischemic Stroke EvaluationFINAL REPORT CT, [...] arteries: Normal contrast opacification of the bilateral CATALOGUE MAKER P1-P2 branches. Venous opacification: Major dural sinuses [...] MDReport Verified Date/Time: 02/14/2019 18:14:44 Reading Location: [facility] C013V Neuro Reading Room CBC W/PLT COUNT & AUTO [id number] 18:07:00 Test Item Value Reference Range Comments WHITE BLOOD CELL COUNT (BEAKER) (test beav=286) 12.2 K/ L 3.5-10.5 RED BLOOD CELL COUNT (BEAKER) (test gald=426) 3.71 M/ L 4.63-6.08 HEMOGLOBIN (BEAKER) (test ncts=060) 11.3 GM/DL 13.7-17.5 HEMATOCRIT (BEAKER) (test xvir=503) 33.9 % 40.1-51.0 MEAN CORPUSCULAR VOLUME (BEAKER) (test epld=078) 91.4 fL 79.0-92.2 MEAN CORPUSCULAR HEMOGLOBIN (BEAKER) (test 30.5 pg 25.7-32.2 naes=980) MEAN CORPUSCULAR HEMOGLOBIN CONC (BEAKER) (test 33.3 GM/DL 32.3-36.5 lmyk=951) RED CELL DISTRIBUTION WIDTH (BEAKER) (test 12.8 % 11.6-14.4 ntiu=911) PLATELET COUNT (BEAKER) (test vdps=268) 89 K/CU MM 150-450 MEAN PLATELET VOLUME (BEAKER) (test tybe=613) 9.9 fL 9.4-12.4 NUCLEATED RED BLOOD CELLS (BEAKER) (test 0 /100 WBC 0-0 kmpt=883) NEUTROPHILS RELATIVE PERCENT (BEAKER) (test 81 % wyyd=111) LYMPHOCYTES RELATIVE PERCENT (BEAKER) (test 8 % dodq=856) MONOCYTES RELATIVE PERCENT (BEAKER) (test 10 % nlyt=003) EOSINOPHILS RELATIVE PERCENT (BEAKER) (test 0 % wexa=559) BASOPHILS RELATIVE PERCENT (BEAKER) (test 0 % jque=803) NEUTROPHILS ABSOLUTE COUNT (BEAKER) (test 9.89 K/ L 1.78-5.38 mgql=354) LYMPHOCYTES ABSOLUTE COUNT (BEAKER) (test 1.02 K/ L 1.32-3.57 chgc=982) MONOCYTES ABSOLUTE COUNT (BEAKER) (test vrau=485) 1.21 K/ L 0.30-0.82 EOSINOPHILS ABSOLUTE COUNT (BEAKER) (test 0.02 K/ L 0.04-0.54 nanq=785) BASOPHILS ABSOLUTE COUNT (BEAKER) (test tixp=070) 0.05 K/ L 0.01-0.08 IMMATURE GRANULOCYTES-RELATIVE PERCENT (BEAKER) 0 % 0-1 (test dlrr=0188) POCT-GLUCOSE [id number] 18:04:00 Test Item Value Reference Range Comments POC-GLUCOSE METER (BEAKER) 133 mg/dL 70-[address] [facility] [address] [facility] (test danx=9884) [facility] [address] [address], BRAIN/STROKE [id number] 17:41:00Reason for exam:->strokeWhat is the patient's sedation [...] MDReport Verified Date/Time: 02/14/2019 17:41:18 Reading Location: [address] Neuro Reading Room Electronically signed by: GIA STATON MD on 05:41 PMCT, CHEST, WITH IV [id number] 09:03:00FINAL REPORT CT CHEST, ABDOMEN, AND PELVIS WITH CONTRAST HISTORY: Malignant neoplasm of urinary bladder, bladder cancer status post NAC and radical cystectomy, RPLND and BjgdoiX40.9 COMPARISON: CT of the chest, abdomen and [...] signed by: JORDAN CONWAY on 02/2019 09:03 [facility] [id number] 09:03:00FINAL REPORT CT CHEST, ABDOMEN, AND PELVIS WITH CONTRAST HISTORY: Malignant neoplasm of urinary bladder, bladder cancer status post NAC and radical cystectomy, RPLND and BhlceqB51.9 COMPARISON: CT of the chest, abdomen and [...] signed by: JORDAN CONWAY on 02/2019 09:03 [id number] 16:32:00 Test Item Value Reference Range Comments POC-CREATININE (BEAKER) 1.3 mg/dL 0.6-1.[address] [facility] [address] (test sgty=4940) [facility] [address] POC-EGFR (BEAKER) (test 58 mL/min/1.73M2 sveu=1592) TISSUE [id number] 16:33:00Surgical Pathology Report Case: [id number] Authorizing Provider: Danny Swanson MD Collected: 01/02/201844 Ordering Location: [facility] PERIOPERATIVE Received: 01/02/2018 0950 SERVICES Pathologist: [...] PATHOLOGIC DIAGNOSIS Signing Pathologist Direct Phone Line: [phone] Preliminary result electronically signed by Abdulaziz Daniels [...] (pT): pT0 Regional Lymph Nodes (pN): pN3 30196, 93919 X 9, 15040 X 4, 39893 X 11Bladder cancerA. Pelvic lymph nodes, para- [...] Black-right bladder and prostate, blue-left bladder and prostate.Sales Account Executive sections are submitted as follows: R1, left ureter resection margin; R2, right ureter resection margin; R3, left ureteral orifice; R4, right ureteral orifice; R5, left ureter union representative sections; R6,right ureter union representative sections; R7 -R23, left lateral bladder wall scar, end submitted; R24, R25, right lateral wall union representative sections; R26, R27, union representative sections of posterior wall; R28, R29, union representative sections of bladder dome; R30, union representative section of trigone; R31, union representative section of anterior wall; R32, prostate apex; R33-37, prostate from apex to base; R38, seminal vesicles. DD/ewS. Labeled "small bowel resection" consists of a segment of small bowel measuring 3cm in length x 1.5 cm in diameter. The specimen is grossly unremarkable. Section code: S1, resectionmargin en face; S2, random section of small bowel. CG /plANTONIO SECTION DIAGNOSIS:[id number]: DISTAL PARA-AORTIC LYMPH NODE, EXCISION: - TUMOR PRESENT IN LYMPH NODE - REPORTED BY DR. ARTHUR TO DR. SWANSON AT 10:20 [id number]: LYMPH NODE, PROXIMAL LIMIT OF DISSECTION PARAORTA, [...] TO DR. SWANSON AT 11:45 AM Performed.URINE [id number] 12:19:00 Test Item Value Reference Range Comments CULTURE (BEAKER) (test ENTEROCOCCUS SPECIES >100,000 col/mL dray=4214) Enterococcus species Ampicillin (test code=26) Linezolid (test code=40) Nitrofurantoin (test code=23) Tetracycline (test code=2) Vancomycin (test code=13) [id number] 08:23:00 Test Item Value Reference Range Comments PHOSPHORUS (BEAKER) (test vyvu=340) 3.0 mg/dL 2.3-4.7 Before arterial line is [id number] 08:23:00 Test Item Value Reference Range Comments MAGNESIUM (BEAKER) (test aetc=076) 1.6 mg/dL 1.6-2.6 Before arterial line is discontinuedBASIC METABOLIC [id number] 08:23:00 Test Item Value Reference Range Comments SODIUM (BEAKER) (test 139 meq/L 136-145 ahyc=567) POTASSIUM (BEAKER) (test 3.5 meq/L 3.5-5.1 llor=186) CHLORIDE (BEAKER) (test 106 meq/L 98-107 dfkt=763) CO2 (BEAKER) (test 26 meq/L 22-29 jxtt=000) BLOOD UREA NITROGEN 9 mg/dL 7-21 (BEAKER) (test btwr=041) CREATININE (BEAKER) (test 0.85 mg/dL 0.57-1.25 gjfs=313) GLUCOSE RANDOM (BEAKER) 97 mg/dL 70-105 (test nysd=967) CALCIUM (BEAKER) (test 8.4 mg/dL 8.4-10.2 uyqs=471) EGFR (BEAKER) (test 95 mL/min/1.73 sq m ESTIMATED GFR IS NOT ufhi=6444) ACCURATE CREATININE CLEARANCE IN PREDICTING GLOMERULAR FILTRATION RATE. ESTIMATED GFR IS NOT APPLICABLE FOR DIALYSIS PATIENTS. Before arterial line is discontinuedHEMOGLOBIN AND [id number] 07:53:00 Test Item Value Reference Range Comments HEMOGLOBIN (BEAKER) (test smxc=559) 8.3 GM/DL 13.7-17.5 HEMATOCRIT (BEAKER) (test taxf=121) 25.5 % 40.1-51.0 [id number] 07:53:00 Test Item Value Reference Range Comments PHOSPHORUS (BEAKER) (test qwcz=240) 3.0 mg/dL 2.3-4.7 Before arterial line is [id number] 07:53:00 Test Item Value Reference Range Comments MAGNESIUM (BEAKER) (test yxnm=410) 1.6 mg/dL 1.6-2.6 Before arterial line is discontinuedBASIC METABOLIC [id number] 07:53:00 Test Item Value Reference Range Comments SODIUM (BEAKER) (test 135 meq/L 136-145 oypi=410) POTASSIUM (BEAKER) (test 3.9 meq/L 3.5-5.1 ldxq=424) CHLORIDE (BEAKER) (test 109 meq/L 98-107 obis=267) CO2 (BEAKER) (test 20 meq/L 22-29 mlwn=108) BLOOD UREA NITROGEN 12 mg/dL 7-21 (BEAKER) (test dmnq=319) CREATININE (BEAKER) (test 0.88 mg/dL 0.57-1.25 vuzu=395) GLUCOSE RANDOM (BEAKER) 94 mg/dL 70-105 (test cvsf=653) CALCIUM (BEAKER) (test 8.2 mg/dL 8.4-10.2 mszm=017) EGFR (BEAKER) (test 91 mL/min/1.73 sq m ESTIMATED GFR IS NOT bkbx=8268) ACCURATE CREATININE CLEARANCE IN PREDICTING GLOMERULAR FILTRATION RATE. ESTIMATED GFR IS NOT APPLICABLE FOR DIALYSIS PATIENTS. Before arterial line is discontinuedHEMOGLOBIN AND [id number] 06:12:00 Test Item Value Reference Range Comments HEMOGLOBIN (BEAKER) (test kexy=367) 7.6 GM/DL 13.7-17.5 HEMATOCRIT (BEAKER) (test ewso=971) 23.7 % 40.1-51.0 [id number] 05:44:00 Test Item Value Reference Range Comments PHOSPHORUS (BEAKER) (test poxp=244) 3.0 mg/dL 2.3-4.7 Before arterial line is [id number] 05:44:00 Test Item Value Reference Range Comments MAGNESIUM (BEAKER) (test wqhn=744) 1.6 mg/dL 1.6-2.6 Before arterial line is discontinuedBASIC METABOLIC [id number] 05:44:00 Test Item Value Reference Range Comments SODIUM (BEAKER) (test 138 meq/L 136-145 lokj=792) POTASSIUM (BEAKER) (test 4.1 meq/L 3.5-5.1 zhep=312) CHLORIDE (BEAKER) (test 109 meq/L 98-107 mebb=116) CO2 (BEAKER) (test 21 meq/L 22-29 atma=725) BLOOD UREA NITROGEN 19 mg/dL 7-21 (BEAKER) (test bigb=284) CREATININE (BEAKER) (test 1.12 mg/dL 0.57-1.25 iqtc=841) GLUCOSE RANDOM (BEAKER) 107 mg/dL 70-105 (test apag=961) CALCIUM (BEAKER) (test 8.3 mg/dL 8.4-10.2 xotg=998) EGFR (BEAKER) (test 69 mL/min/1.73 sq m ESTIMATED GFR IS NOT tyqj=6625) ACCURATE CREATININE CLEARANCE IN PREDICTING GLOMERULAR FILTRATION RATE. ESTIMATED GFR IS NOT APPLICABLE FOR DIALYSIS PATIENTS. Before arterial line is discontinuedHEMOGLOBIN AND [id number] 05:07:00 Test Item Value Reference Range Comments HEMOGLOBIN (BEAKER) (test xxtb=617) 7.6 GM/DL 13.7-17.5 HEMATOCRIT (BEAKER) (test mush=926) 23.4 % 40.1-51.0 [id number] 06:36:00 Test Item Value Reference Range Comments MAGNESIUM (BEAKER) (test yfhc=401) 2.1 mg/dL 1.6-2.6 Before arterial line is discontinuedBASIC METABOLIC [id number] 06:36:00 Test Item Value Reference Range Comments SODIUM (BEAKER) (test 134 meq/L 136-145 iafw=795) POTASSIUM (BEAKER) (test 4.9 meq/L 3.5-5.1 ptgq=900) CHLORIDE (BEAKER) (test 107 meq/L 98-107 mnzs=648) CO2 (BEAKER) (test 21 meq/L 22-29 fqnc=076) BLOOD UREA NITROGEN 26 mg/dL 7-21 (BEAKER) (test ublw=407) CREATININE (BEAKER) (test 1.36 mg/dL 0.57-1.25 rbco=171) GLUCOSE RANDOM (BEAKER) 113 mg/dL 70-105 (test xtoo=906) CALCIUM (BEAKER) (test 8.2 mg/dL 8.4-10.2 jnwl=849) EGFR (BEAKER) (test 55 mL/min/1.73 sq m ESTIMATED GFR IS NOT gudp=7006) ACCURATE CREATININE CLEARANCE IN PREDICTING GLOMERULAR FILTRATION RATE. ESTIMATED GFR IS NOT APPLICABLE FOR DIALYSIS PATIENTS. Before arterial line is [id number] 06:36:00 Test Item Value Reference Range Comments PHOSPHORUS (BEAKER) (test twjk=545) 3.3 mg/dL 2.3-4.7 HEMOGLOBIN AND [id number] 06:16:00 Test Item Value Reference Range Comments HEMOGLOBIN (BEAKER) (test ndon=584) 7.9 GM/DL 13.7-17.5 HEMATOCRIT (BEAKER) (test dgsu=889) 24.4 % 40.1-51.0 [id number] 06:27:00 Test Item Value Reference Range Comments PHOSPHORUS (BEAKER) (test qrks=601) 3.4 mg/dL 2.3-4.7 Before arterial line is [id number] 06:27:00 Test Item Value Reference Range Comments MAGNESIUM (BEAKER) (test kvlm=031) 2.3 mg/dL 1.6-2.6 Before arterial line is discontinuedBASIC METABOLIC [id number] 06:27:00 Test Item Value Reference Range Comments SODIUM (BEAKER) (test 134 meq/L 136-145 aabr=565) POTASSIUM (BEAKER) (test 5.6 meq/L 3.5-5.1 akjq=189) CHLORIDE (BEAKER) (test 108 meq/L 98-107 hejd=781) CO2 (BEAKER) (test 19 meq/L 22-29 bhrp=538) BLOOD UREA NITROGEN 27 mg/dL 7-21 (BEAKER) (test xvjm=218) CREATININE (BEAKER) (test 1.62 mg/dL 0.57-1.25 jyqs=487) GLUCOSE RANDOM (BEAKER) 155 mg/dL 70-105 (test uoez=432) CALCIUM (BEAKER) (test 8.6 mg/dL 8.4-10.2 rpgc=927) EGFR (BEAKER) (test 45 mL/min/1.73 sq m ESTIMATED GFR IS NOT rnfx=5020) ACCURATE CREATININE CLEARANCE IN PREDICTING GLOMERULAR FILTRATION RATE. ESTIMATED GFR IS NOT APPLICABLE FOR DIALYSIS PATIENTS. Before arterial line is discontinuedHEMOGLOBIN AND [id number] 06:12:00 Test Item Value Reference Range Comments HEMOGLOBIN (BEAKER) (test epap=300) 8.7 GM/DL 13.7-17.5 HEMATOCRIT (BEAKER) (test waya=638) 26.1 % 40.1-51.0 BASIC METABOLIC [id number] 16:59:00 Test Item Value Reference Range Comments SODIUM (BEAKER) (test 137 meq/L 136-145 wgwx=225) POTASSIUM (BEAKER) (test 5.0 meq/L 3.5-5.1 ppgo=669) CHLORIDE (BEAKER) (test 110 meq/L 98-107 wdpw=303) CO2 (BEAKER) (test 17 meq/L 22-29 jftr=391) BLOOD UREA NITROGEN 18 mg/dL 7-21 (BEAKER) (test tebl=962) CREATININE (BEAKER) (test 1.22 mg/dL 0.57-1.25 shib=722) GLUCOSE RANDOM (BEAKER) 156 mg/dL 70-105 (test zyqv=865) CALCIUM (BEAKER) (test 8.6 mg/dL 8.4-10.2 zrcc=348) EGFR (BEAKER) (test 63 mL/min/1.73 sq m ESTIMATED GFR IS NOT squa=3818) ACCURATE CREATININE CLEARANCE IN PREDICTING GLOMERULAR FILTRATION RATE. ESTIMATED GFR IS NOT APPLICABLE FOR DIALYSIS PATIENTS. [facility] [id number] 16:13:00 Test Item Value Reference Range Comments HEMOGLOBIN (BEAKER) (test dygp=578) 8.5 GM/DL 13.7-17.5 HEMATOCRIT (BEAKER) (test hreb=916) 25.5 % 40.1-51.0 SODIUM NA-STAT [id number] 13:04:00 Test Item Value Reference Range Comments SODIUM (BEAKER) (test vwzm=504) 137 meq/L 135-148 POTASSIUM-STAT [id number] 13:04:00 Test Item Value Reference Range Comments POTASSIUM (BEAKER) (test guek=363) 4.1 meq/L 3.6-5.5 CALCIUM, [id number] 13:04:00 Test Item Value Reference Range Comments CALCIUM IONIZED (BEAKER) (test lemp=789) 1.08 mmol/L 1.12-1.27 PH, BLOOD (BEAKER) (test kulk=4955) 7.39 BLOOD GAS, [id number] 13:04:00 Test Item Value Reference Range Comments PH ARTERIAL (BEAKER) (test jsuj=509) 7.39 7.35-7.45 PCO2 ARTERIAL (BEAKER) (test jybc=582) 36 mmHg 35-45 PO2 ARTERIAL (BEAKER) (test vpwf=938) 241 mmHg 80-90 O2 SATURATION ARTERIAL (BEAKER) (test jogo=265) 99.5 % 96.0-97.0 HCO3 ARTERIAL (BEAKER) (test hcbn=924) 21 mmol/L 21-29 BASE EXCESS ARTERIAL (BEAKER) (test mplp=561) -3.2 mmol/L -2.0-3.0 PATIENT TEMPERATURE (BEAKER) (test nhza=7208) 37.0 C FIO2 (BEAKER) (test apof=6567) 100.0 % GLUCOSE-STAT [id number] 13:04:00 Test Item Value Reference Range Comments GLUCOSE RANDOM (BEAKER) (test mhea=014) 121 mg/dL 70-110 HGB/HCT (H&H) - STAT [id number] 13:04:00 Test Item Value Reference Range Comments HEMOGLOBIN (BEAKER) (test tzap=909) 7.7 g/dL 13.0-16.8 HEMATOCRIT (BEAKER) (test jiqo=498) 23.0 % 40.0-50.0 BASIC METABOLIC [id number] 08:07:00 Test Item Value Reference Range Comments SODIUM (BEAKER) (test 138 meq/L 136-145 ipsy=697) POTASSIUM (BEAKER) (test 3.9 meq/L 3.5-5.1 Specimen slightly dkvg=071) hemolyzed CHLORIDE (BEAKER) (test 102 meq/L 98-107 kvcv=518) CO2 (BEAKER) (test 26 meq/L 22-29 krfk=290) BLOOD UREA NITROGEN 17 mg/dL 7-21 (BEAKER) (test okij=099) CREATININE (BEAKER) (test 1.00 mg/dL 0.57-1.25 Specimen slightly xonv=503) hemolyzed GLUCOSE RANDOM (BEAKER) 100 mg/dL 70-105 (test nyep=766) CALCIUM (BEAKER) (test 9.3 mg/dL 8.4-10.2 gmta=243) EGFR (BEAKER) (test 79 mL/min/1.73 sq m ESTIMATED GFR IS NOT pkxe=6717) ACCURATE CREATININE CLEARANCE IN PREDICTING GLOMERULAR FILTRATION RATE. ESTIMATED GFR IS NOT APPLICABLE FOR DIALYSIS PATIENTS. [id number] 07:18:00 Test Item Value Reference Range Comments HEMOGLOBIN (BEAKER) (test mzck=962) 11.3 GM/DL 13.7-17.5 Check DOSANG, CV ACCESS, [id number] 13:27:00Reason for Exam:->[place] neoplasm of urinary bladder, [...] the patient's medical record by the nurse. [employer] Autom[employer] Technician: Daniel Ty MD Jack Prizer: None. Approach: Right internal jugular vein Estimated [...] needle into the right atrium. A 4 [place]alan micropuncture sheath was placed. A subcutaneous tunnel and pocket were created in the right anterior chest wall by blunt dissection. The pocket was flushed with antibiotic solution. A 6 [place] Bard single lumen power injectable port was [...] MDReport Verified Date/Time: 2017 13:27:04 Reading Location: [facility] P048 Angio Body Reading Room [id number] 09:22:00 Test Item Value Reference Range Comments PROTIME (BEAKER) (test huyd=021) 14.0 seconds 11.7-14.7 INR (BEAKER) (test nhzj=894) 1.1 <=5.9 PARTIAL THROMBOPLASTIN TIME (BEAKER) (test 28.1 seconds 22.5-36.0 xcrj=875) RECOMMENDED COUMADIN/WARFARIN INR THERAPY RANGESSTANDARD DOSE: 2.0 - 3.0 Includes: PROPHYLAXIS forvenous thrombosis, systemic embolization; TREATMENT for venous thrombosis and/or pulmonary embolus.HIGH RISK: Target INR is 2.5-3.5 for patients with mechanical heart valves.PLATELET [id number] 09:07:00 Test Item Value Reference Range Comments PLATELET COUNT (BEAKER) (test snpv=805) 283 K/CU MM 150-450 PET/CT, WHOLE BODY [id number] 14:56:00Reason for Exam:->c67.9FINAL REPORT EXAMINATION: FDG-PET/CT, 08/03/2017 [...] feetAdditional imaging: NoneSerum blood glucose: 109CPT Code: 50085 FINDINGS:Head and Neck: Mild bernice activity is [...] consistent with infection or inflammation. Signed: Hernán Josepheport Verified Date/Time: 08/03/2017 14:56:22 02 :56 PMPOCT-GLUCOSE [id number] 09:20:00 Test Item Value Reference Range Comments POC-GLUCOSE METER (BEAKER) 109 mg/dL 70-110 TESTED AT [address] (test tddi=8282) [facility] [address] TISSUE [id number] 14:18:00Surgical Pathology Report Case: [id number] Authorizing Provider: Danny Swanson MD Collected: 07/25/2017 1140 Ordering Location: [facility] PERI[facility]IVE Received: 07/25/2017 1251 SERVICES Pathologist: [...] GRANULOMATOUS INFLAMMATION Signing Pathologist Direct Phone Line: [phone] signed by Abdulaziz Daniels MD on 07/26/2017 at 2:18 PMApproximately 20% of the tumor shows some degree of squamous differentiation and 1% shows a micropapillary pattern.[id number], 00128Axsnkhp cancerA. Bladder tumor left lateral wall. B. [...] entirely submitted in cassette B1. DB/ewPerformed.URINALYSIS W/ [id number] 09: 23:00 Test Item Value Reference Range Comments COLOR (BEAKER) (test fitu=190) Yellow CLARITY (BEAKER) (test wedx=113) Hazy SPECIFIC GRAVITY UA (BEAKER) (test 1.019 1.001-1.035 dfsj=099) PH UA (BEAKER) (test yubt=460) 5.5 5.0-8.0 PROTEIN UA (BEAKER) (test rnnf=743) 100 mg/dL Negative GLUCOSE UA (BEAKER) (test hpju=886) Negative Negative KETONES UA (BEAKER) (test pttb=136) Negative Negative BILIRUBIN UA (BEAKER) (test uhxt=057) Negative Negative BLOOD UA (BEAKER) (test zrkc=422) Moderate Negative NITRITE UA (BEAKER) (test tdnr=353) Negative Negative LEUKOCYTE ESTERASE UA (BEAKER) (test Large Negative shvh=491) UROBILINOGEN UA (BEAKER) (test yuvx=705) 2.0 mg/dL 0.2-1.0 RBC UA (BEAKER) (test kgfl=603) 27 /HPF WBC UA (BEAKER) (test vqts=698) 155 /HPF MUCUS (BEAKER) (test rytt=2708) Rare HYALINE CASTS (BEAKER) (test xwqd=914) 1 /LPF SOURCE(BEAKER) (test ekth=7207) Urine, Clean Catch
[2019-06-27 20:48] LABS: Absolute Lymphocytes (CBC) 1.4 K/uL (0.7-4.9); Basophils % 1.5 % (0-1.3); Hematocrit 33.4 % (39.6-49.0); MPV 7.9 fL (7.6-11.3); Protime INR 2.47; RBC Red Blood Cell Count 3.88 M/uL (4.33-5.43)
[2019-06-27 21:04] LABS: ALT/SGPT 30 U/L (12-78); AST/SGOT 40 U/L (15-37); Albumin 3.2 g/dL (3.4-5.0); Alkaline Phosphatase 182 U/L (45-117); BUN Blood Urea Nitrogen 30 mg/dL (7-18); Bicarbonate 29 mmol/L (21-32); Bilirubin Direct 0.2 mg/dL (0-0.2); Bilirubin Total 0.6 mg/dL (0.2-1.0); Glucose Level 144 mg/dL (74-106); Magnesium 2.3 mg/dL (1.8-2.4); NT PRO-BNP 287 pg/mL (<125); Potassium 3.7 mmol/L (3.5-5.1); Protein, Total 7.5 g/dL (6.4-8.2); Sodium Level 136 mmol/L (136-145); Troponin (Emerg Dept Use Only) < 0.02 ng/mL (0.0-0.045)
--- NOTE | 2019-06-27 21:43 | RAD REPORT ---
EXAM DESCRIPTION: Rasheed Single View06/27/2019 8:59 pm CLINICAL HISTORY: Chest pain COMPARISON: March 2019 FINDINGS: The lungs appear clear of acute infiltrate. The heart is normal size A PICC line has its tip in the superior vena cava Old rib fractures are noted IMPRESSION: No acute abnormalities displayed
[2019-06-27] MEDS ORDERED: HYDROCODONE/APAP 10/325 TAB ONE (21:45)
--- NOTE | 2019-06-27 21:58 | ER ---
Nurse's Notes [facility] Name: Diaz Sadler Age: 53 yrs Sex: Male : 1965 Arrival Date: 06/27/2019 Time: 20:30 Bed 30 Private MD: Diagnosis: Chest pain, unspecified Presentation: 06/27 20:38 Presenting complaint: EMS states: he has nonradiating central chest pain 1 hour ago. mg2 aspirin 3 tabs, nitro paste and 1 tab SL given. pain reduced from 10/10 to 5/10. he has PICC line for IV antibiotic but completed already for C Diff. He laso has cat scratch on his left arm. BGL-122 mg/d/. VS stable. Transition of care: patient was not received from another setting of care. Onset of symptoms was June 27, 2019. Risk Assessment: Do you want to hurt yourself or someone else? Patient reports no desire to harm self or others. Initial Sepsis Screen: Does the patient meet any 2 criteria? No. Patient's initial sepsis screen is negative. Does the patient have a suspected source of infection? No. Patient's initial sepsis screen is negative. 20:38 Method Of Arrival: EMS: [facility] mg2 20:38 Acuity: TERESA 3 mg2 22:11 Care prior to arrival: None. rv Historical: - Allergies: 20:43 Codeine; itch; mg2 20:43 HYDROCODONE; mg2 20:43 PENICILLINS; mg2 - PMHx: 20:43 "heart infection"; Bladder CA; CVA; DVT- L upper thigh; Hypothyroidism; neuropathy; mg2 Prostate Cancer; TIA; - Immunization history:: Flu vaccine status is unknown. - Social history:: Smoking status: unknown. - Ebola Screening: : No symptoms or risks identified at this time. Screenin:00 Abuse screen: Denies threats or abuse. Denies injuries from another. rv 21:00 Nutritional screening: No deficits noted. Tuberculosis screening: No symptoms or risk rv factors identified. Fall Risk None identified. Assessment: 21:00 General: Appears in no apparent distress. comfortable, Behavior is calm, cooperative. rv 21:00 Pain: Complains of pain in chest. Neuro: Level of Consciousness is awake, alert, obeys rv commands, Oriented to person, place, time, situation. Cardiovascular: Patient's skin is warm and dry. Cardiovascular: Rhythm is regular. Respiratory: Airway is patent. GI: No signs and/or symptoms were reported involving the gastrointestinal system. : No signs and/or symptoms were reported regarding the genitourinary system. EENT: No signs and/or symptoms were reported regarding the EENT system. Derm: Skin is intact. Vital Signs: 20:42 Resp 18; Temp 97.8; Weight 71.67 kg; Height 5 ft. 11 in. (180.34 cm); Pain 5/10; mg2 21:00 BP 107 / 87; Pulse 95; Resp 17; Pulse Ox 98% on R/A; rv 21:30 BP 118 / 87; Pulse 91; Resp 17; Pulse Ox 100% on R/A; rv 22:00 BP 124 / 93; Pulse 84; Resp 18; Pulse Ox 99% on R/A; rv 20:42 Body Mass Index 22.04 (71.67 kg, 180.34 cm) mg2 ED Course: 20:30 Patient arrived in ED. rv 20:30 Keyon Moore RN is Primary Nurse. rv 20:35 Robert Parker FNP-C is PHCP. la1 20:36 Chas Edgar MD is Attending Physician. la1 20:42 Triage completed. mg2 20:43 Arm band placed on. mg2 20:59 XRAY Chest (1 view) In Process Unspecified. EDMS 20:59 Notified Nurse Practitioner and/or Physician Senior Research Manager of a critical lab result(s), ak1 d-dimer 6004. 21:00 Patient has correct armband on for positive identification. rv 21:00 monitoring tech on. Pulse ox on. NIBP on. rv 21:00 Maintain EMS IV. Dressing intact. Good blood return noted. Site clean \\T\\ dry. Gauge \\T\\ rv site: G20 LEFT UPPPERARM. 22:10 No provider procedures requiring assistance completed. IV discontinued, intact, rv bleeding controlled, No redness/swelling at site. Pressure dressing applied. Administered Medications: 21:45 Drug: [place] 10 mg-325 mg 1 tabs {Note: rass 0.} Route: PO; rv 22:06 Follow up: Response: No adverse reaction; RASS: Alert and Calm (0) rv Outcome: 21:57 Discharge ordered by . la1 22:12 Discharged to home ambulatory. rv 22:12 Condition: good 22:12 Discharge instructions given to patient, Instructed on discharge instructions, follow up and referral plans. Demonstrated understanding of instructions, follow-up care. 22:12 Patient left the ED. rv Signatures: Dispatcher [employer] EDRobert Frazier, BATTER MIXER-C BATTER MIXER-Cla1 Melanie Arguelles RN RN ak1 Deep Barnes RN RN mg2 Keyon Moore RN RN rv
--- NOTE | 2019-06-27 21:58 | EDPHYS ---
Physician Documentation [facility] Name: Diza Sadler Age: 53 yrs Sex: Male : 1965 Arrival Date: 06/27/2019 Time: 20:30 Bed 30 Private MD: ED Physician Chas Edgar HPI: 06/27 20:43 This 53 yrs old Male presents to ER via EMS with complaints of chest la1 pain/palpitations. 20:43 The patient or guardian reports chest pain that is located primarily in the anterior la1 chest wall, left. Onset: 1 hour(s) ago. The patient presents with a history of irregular heart beat, heart skipping beats. Context: The symptoms occur at rest. Onset: The symptoms/episode began/occurred 1 hour(s) ago. Modifying factors: The symptoms are aggravated by nothing. The symptoms are alleviated by nothing. The pain does not radiate. Associated signs and symptoms: Pertinent negatives: fever, lightheadedness, nausea, SOB, syncope, near-syncope, vertigo, vomiting. The chest pain is described as "like a valve is going then stopping a bunch". Pt being treated for Bladder CA, reports he is supposed to have a valve worked on in July. Was sitting in tub and began having palpitations and chest pain. . Historical: - Allergies: 20:43 Codeine; itch; mg2 20:43 HYDROCODONE; mg2 20:43 PENICILLINS; mg2 - PMHx: 20:43 "heart infection"; Bladder CA; CVA; DVT- L upper thigh; Hypothyroidism; neuropathy; mg2 Prostate Cancer; TIA; - Immunization history:: Flu vaccine status is unknown. - Social history:: Smoking status: unknown. - Ebola Screening: : No symptoms or risks identified at this time. ROS: 20:46 Constitutional: Negative for fever, chills, and weight loss, Eyes: Negative for injury, la1 pain, redness, and discharge, ENT: Negative for injury, pain, and discharge, Neck: Negative for injury, pain, and swelling, Respiratory: Negative for shortness of breath, cough, wheezing, and pleuritic chest pain, Abdomen/GI: Negative for abdominal pain, nausea, vomiting, diarrhea, and constipation, Back: Negative for injury and pain, MS/Extremity: Negative for injury and deformity. 20:46 Neuro: Negative for headache, weakness, numbness, tingling, and seizure. 20:46 : Positive for Pt has amado catheter 2/2 bladder CA. 20:46 Cardiovascular: Positive for chest pain, palpitations, Negative for edema, paroxysmal la1 nocturnal dyspnea. Exam: 20:47 Constitutional: This is a well developed, well nourished patient who is awake, alert, la1 and in no acute distress. Head/Face: Normocephalic, atraumatic. Eyes: Pupils equal round and reactive to light, extra-ocular motions intact. Periorbital areas with no swelling, redness, or edema. ENT: Mucous membranes moist. Neck: Trachea midline, no thyromegaly or masses palpated, and no cervical lymphadenopathy. Supple, full range of motion without nuchal rigidity, or vertebral point tenderness. No Meningismus. Chest/axilla: Normal chest wall appearance and motion. Nontender with no deformity. No lesions are appreciated. 20:47 Respiratory: Lungs have equal breath sounds bilaterally, clear to auscultation No rales, rhonchi or wheezes noted. No increased work of breathing, no retractions or nasal flaring. Abdomen/GI: Soft, non-tender, with normal bowel sounds. No distension or tympany. No guarding or rebound. No evidence of tenderness throughout. 20:47 Cardiovascular: Rate: normal, Heart sounds: murmur, grade 2 over 6, heard in the mitral area, S1, normal, S2, normal, Edema: is not appreciated. 21:54 ECG was reviewed by the Attending Physician. la1 21:55 Skin: small skin tear/scratch to left forearm, reported to be by cat scratch a couple la1 days earlier. No surrounding cellulitis or edema, slowly oozing blood, wound cleaned and pressure dressing applied. Vital Signs: 20:42 Resp 18; Temp 97.8; Weight 71.67 kg; Height 5 ft. 11 in. (180.34 cm); Pain 5/10; mg2 21:00 BP 107 / 87; Pulse 95; Resp 17; Pulse Ox 98% on R/A; rv 21:30 BP 118 / 87; Pulse 91; Resp 17; Pulse Ox 100% on R/A; rv 22:00 BP 124 / 93; Pulse 84; Resp 18; Pulse Ox 99% on R/A; rv 20:42 Body Mass Index 22.04 (71.67 kg, 180.34 cm) mg2 MDM: 20:36 Patient medically screened. la1 21:40 Differential diagnosis: abnormal EKG, acute myocardial infarction, acute pericarditis, la1 anxiety. ECG:. Counseling: I had a detailed discussion with the patient and/or guardian regarding: the historical points, exam findings, and any diagnostic results supporting the discharge/admit diagnosis, lab results, the need for outpatient follow up, a branch billing payroll clerk. ED course: Pt is being worked up for endocarditis with Mitral valve involvement at [facility] in the [facility]. Has had a cardiac cath last week that was completely clear, has a known DVT that explains his elevated DDIMER and is currently on blood thinners and abx, renal function is extremely close to what is was on his outpatient labs from [facility] and the Troponin in negative in the ED, pt chest pain is described more as palpitation like. Pt has had recent TEJAS, chest CT, ECG, labs at [facility] as well. with all of these diagnostics it is extremely unlikely this pain is ischemic in nature. Pt also seen and cleared by cardiology today at [facility]. Pt to keep plan of care currently organized at [facility] and return with new or worsening symptoms. 21:55 Data reviewed: vital signs, nurses notes, EMS record, lab test result(s), EKG, la1 radiologic studies, plain films, I have discussed the patient's presentation/case with the attending Emergency Department Physician; and as a result, I will discharge patient. 21:56 ED course: daughter at bedside states she will call the branch billing payroll clerk and surgeon in the la1 morning or return with new or worsening symptoms. . 06/27 20:31 Order name: Basic Metabolic Panel; Complete Time: 21:52 rv 06/27 20:31 Order name: CBC with Diff; Complete Time: 21:52 rv 18 20:31 Order name: LFT's; Complete Time: 21:52 rv 18 20:31 Order name: Magnesium; Complete Time: 21:52 rv 06/27 20:31 Order name: NT PRO-BNP; Complete Time: 21:52 rv 18 20:31 Order name: PT-INR; Complete Time: 21:52 rv 06/27 20:31 Order name: Troponin (emerg Dept Use Only); Complete Time: 21:52 rv 06/27 20:31 Order name: XRAY Chest (1 view); Complete Time: 21:58 rv 06/27 20:31 Order name: EKG; Complete Time: 20:32 rv 06/27 20:31 Order name: Cardiac monitoring; Complete Time: 20:53 rv 06/27 20:31 Order name: EKG - Nurse/Tech; Complete Time: 20:52 rv 06/27 20:31 Order name: IV Saline Lock; Complete Time: 20:52 rv 06/27 20:42 Order name: D-Dimer; Complete Time: 21:52 rv 06/27 20:31 Order name: Labs collected and sent; Complete Time: 20:53 rv 06/27 20:31 Order name: O2 Per Protocol; Complete Time: 20:53 rv 06/27 20:31 Order name: O2 Sat Monitoring; Complete Time: 20:53 rv EC:54 Rate is 93 beats/min. Rhythm is regular. QRS [place] is Normal. GA interval is normal. QRS la1 interval is normal. No ST changes noted. Interpreted by me. Reviewed by me. Administered Medications: 21:45 Drug: Weidman 10 mg-325 mg 1 tabs {Note: rass 0.} Route: PO; rv 22:06 Follow up: Response: No adverse reaction; RASS: Alert and Calm (0) rv Disposition: 06/28 06:21 Co-signature as Attending Physician, Chas Edgar MD I agree with the assessment and tw4 plan of care. Disposition: 06/27/19 21:57 Discharged to Home. Impression: Chest pain, unspecified. - Condition is Stable. - Discharge Instructions: Nonspecific Chest Pain, Chest Wall Pain. - Medication Reconciliation Form, Thank You Letter form. - Follow up: Private Physician; When: 1 - 2 days; Reason: Recheck today's complaints, Re-evaluation by your physician. Follow up: Emergency Department; When: As needed; Reason: Worsening of condition. - Problem is an ongoing problem. - Symptoms have improved. Signatures: Dispatcher [employer] EDMS Robert Parker, SHOW GIRL-C SHOW GIRL-Cla1 Chas Edgar MD MD tw4 Deep Barnes, JESUS RN [facility] Keyon Moore RN RN rv Corrections: (The following items were deleted from the chart) 06/27 22:12 21:57 06/27/2019 21:57 Discharged to Home. Impression: Chest pain, unspecified. rv Condition is Stable. Forms are Medication Reconciliation Form, Thank You Letter, Antibiotic Education, Prescription Opioid Use. Follow up: Private Physician; When: 1 - 2 days; Reason: Recheck today's complaints, Re-evaluation by your physician. Follow up: Emergency Department; When: As needed; Reason: Worsening of condition. Problem is an ongoing problem. Symptoms have improved. la1
[2019-06-28 01:50] VITALS: TEMP 97.8
[2019-06-28 01:54] VITALS: BP 124/93; O2SAT 99
--- NOTE | 2019-06-28 12:43 | EKG ---
Test Date: 2019-06-27 Test Time: 20:34:04 Fire Management Specialist: RIANA MEASUREMENT RESULTS: Intervals: Rate: 93 OK: 160 QRSD: 94 QT: 348 QTc: 432 Jackson: P: 52 OK: 160 QRS: 9 T: 41 INTERPRETIVE STATEMENTS: Normal sinus rhythm Normal ECG Compared to ECG 03/20/2019 21:50:28 Sinus bradycardia no longer present Electronically Signed On 06-28-19 12:41:38 CORPORATE BUYER by Reji Mcclendon
== END 2019-06-27 22:12 | disposition home or self-care (01) ==
LOC: ER 20:29
DX: R07.9 Chest pain, unspecified (principal); Z88.6 Allergy status to analgesic agent; Z88.0 Allergy status to penicillin
CPT/HCPCS: 36415; 71045; 80048; 80076; 83735; 83880; 84484; 85025; 85379; 85610; 93005; 99284

== ENCOUNTER 2019-07-26 14:05 | Emergency (ER) | payer BC ==
--- OUTSIDE RECORDS SUMMARY | 2019-07-26 14:18 | XMS REPORT ---
:1965 [facility] [address] [place] [address] Dr. Rivera [address] [place] [id number] Care Team Providers Name Role Phone SONJA SEPULVEDA Unavailable Unavailable MONSERRAT LANDEROS Unavailable Unavailable NANCY HINTON Unavailable Unavailable BERTRAND HERNANDEZ Unavailable Unavailable DANI SMITH Unavailable Unavailable LOERNA REYES Unavailable Unavailable NARENDRA KIM Unavailable Unavailable DANNY SWANSON Unavailable Unavailable Problems This patient has no known problems. Allergies, Adverse Reactions, Alerts This patient has no known allergies or adverse reactions. Medications This patient has no known medications. Results Test Description Test Time Test Comments Text Results Atomic Results Result Comments U/S, CORE BIOPSY 2019-07-23 11:23:00 Reason for exam:->L FINAL REPORT PATIENT ID: inguinal iliac [id number] US Guided core lymph node biopsy biopsy left inguinal lymph r/o Bladder cancer node. recurrence History: Left inguinal lymphadenopathy Career Resource Specialist: Poli Ugarte MD. Public Policy Coordinator: None. Modality: Ultrasound Sedation: No sedation. Estimated blood loss: < 5 cc. Technique: Informed written consent was obtained. Discussion of risks, benefits, and alternatives were made with the patient. The patient expressed understanding and agreed to proceed. A universal timeout was performed prior to starting the procedure. Standard sterile precautions were utilized. A preliminary ultrasonography was performed to assess the target and determine a safe access site. It showed multiple left inguinal lymph nodes some of which appear abnormal. Pertinent ultrasound images were secured to the PACS for documentation. A left inguinal access site was selected and sterilely prepped and draped. Local anesthesia with 1% lidocaine was administered. A dermatotomy was performed. Using aseptic precautions, under real-time ultrasonographic guidance, the target lesion was accessed with an 18-gauge biopsy needle. Multiple CORES of the targeted tissue were performed. The specimen was in formalin and RPMI for further processing. At the end of the procedure, an aseptic dressing applied. The patient tolerated the procedure well. After recovery, the patient was discharged from the department in stable condition. Complications: None immediate. Specimen: Multiple cores Impression: Successful ultrasound-guided core biopsy of left inguinal lymph node. Thank you for the opportunity to assist in the care of your patient. Signed: Poli Ugarte Verified Date/Time: 07/23/2019 11:23:42 Reading Location: [address] Body Reading Room UE EXAM 2019-07-17 17:47:00 Surgical Pathology Report Case: [id number] Authorizing Provider: Sulma Malin, Collected: 07/13/2019 1620 MD Ordering Location: [address] Received: 07/16/2019 0752 Service Pathologist: Donell Mustafa MD Specimens: A) - Lymph Node, Inguinal, Left, SALINE B) - Lymph Node, Inguinal, Left, FORMALIN A. LYMPH NODE, LEFT INGUINAL, NEEDLE BIOPSY- METASTATIC CARCINOMAB. LYMPH NODE, LEFT INGUINAL, NEEDLE BIOPSY- METASTATIC CARCINOMA, CONSISTENT WITH A URINARY BLADDER PRIMARY Signing Pathologist Direct Phone Line: [phone] signed by Donell Mustafa MD on 07/17/2019 at 5:47 PMPreliminary result electronically signed by Donell Mustafa MD on 07/17/2019 at 7:37 [id number] x2, [id number], [id number] x3Not given A. Inguinal lymph node-left, 2.0 x 1.0 x 1.0 cm, core biopsy. B. Inguinal lymph node-left, 2.0 x 1.0 x 1.0 cm, core biopsyA. Received in saline labeled with the patient's name, accession number and "lymph node inguinal" is a 1.2 x 0.1 x 0.1 cm everett, elongated, soft portion of tissue, which is submitted in toto in A1.B. Received in formalin labeled with the patient's name, accession number and "lymph node inguinal" are four everett-white, fragmented to elongated, soft portions of tissue ranging from 0.1 to 1.5 cm in greatest dimension. The specimen is submitted in toto in B1. JDR/ew A. Microscopic examination is performed and the findings are incorporated in the diagnostic line. B. Microscopic examination is performed and the findings are incorporated in the diagnostic line. Immunostains were performed with appropriate controls. The tumor is positive for CHERY 3, CK7 and CK20. The tumor is focal weak positive for AUDELIA 4.The interpretation of this case included the use of immunohistochemistry or special stains.Control Slides Examined: In-house known positive controls were evaluated along with the test tissue. These control slides run alongside of the patients sample show appropriate staining. Internal positive and negative controls when available are evaluated Immunohistochemistry technical testing was performed at [facility] where it was developed and its performance characteristics were determined. It has not been cleared or approved by the U.S. Food and Drug Administration. The FDA has determined that such clearance or approval is not necessary. The test is used for clinical purposes. It should not be regarded as investigational or for research. This laboratory is certified under the Clinical Laboratory Improvement Amendments of 1988 (CLIA-88) as qualified to perform high complexity clinical laboratory testing. MAGNESIUM 2019-07-17 12:56:00 Test Item Value Reference Range Comments MAGNESIUM (BEAKER) (test ublv=374) 1.8 mg/dL 1.6-2.6 BASIC METABOLIC [id number] 12:56:00 Test Item Value Reference Range Comments SODIUM (BEAKER) (test 137 meq/L 136-145 vzrx=928) POTASSIUM (BEAKER) (test 4.5 meq/L 3.5-5.1 rdkd=485) CHLORIDE (BEAKER) (test 99 meq/L 98-107 whma=032) CO2 (BEAKER) (test 28 meq/L 22-29 dwqu=606) BLOOD UREA NITROGEN 18 mg/dL 7-21 (BEAKER) (test ohya=391) CREATININE (BEAKER) (test 1.57 mg/dL 0.57-1.25 ltfo=284) GLUCOSE RANDOM (BEAKER) 102 mg/dL 70-105 (test bhnj=251) CALCIUM (BEAKER) (test 8.9 mg/dL 8.4-10.2 rqqa=303) EGFR (BEAKER) (test 47 mL/min/1.73 sq m ESTIMATED GFR IS NOT ieol=0666) ACCURATE CREATININE CLEARANCE IN PREDICTING GLOMERULAR FILTRATION RATE. ESTIMATED GFR IS NOT APPLICABLE FOR DIALYSIS PATIENTS. [id number] 12:45:00 Test Item Value Reference Range Comments PARTIAL THROMBOPLASTIN TIME (BEAKER) (test 95.4 seconds 22.5-36.0 saig=580) CBC (HEMOGRAM ONLY)2019-07-17 12:37:00 Test Item Value Reference Range Comments WHITE BLOOD CELL COUNT (BEAKER) (test bdkb=783) 8.8 K/ L 3.5-10.5 RED BLOOD CELL COUNT (BEAKER) (test delc=848) 3.57 M/ L 4.63-6.08 HEMOGLOBIN (BEAKER) (test tmvf=829) 9.9 GM/DL 13.7-17.5 HEMATOCRIT (BEAKER) (test afbe=351) 31.1 % 40.1-51.0 MEAN CORPUSCULAR VOLUME (BEAKER) (test auyf=729) 87.1 fL 79.0-92.2 MEAN CORPUSCULAR HEMOGLOBIN (BEAKER) (test 27.7 pg 25.7-32.2 sres=431) MEAN CORPUSCULAR HEMOGLOBIN CONC (BEAKER) (test 31.8 GM/DL 32.3-36.5 wbdd=425) RED CELL DISTRIBUTION WIDTH (BEAKER) (test 14.0 % 11.6-14.4 mecg=193) PLATELET COUNT (BEAKER) (test avzr=260) 231 K/CU MM 150-450 MEAN PLATELET VOLUME (BEAKER) (test wfga=624) 9.9 fL 9.4-12.4 NUCLEATED RED BLOOD CELLS (BEAKER) (test 0 /100 WBC 0-0 qmzx=856) [id number] 04:35:00 Test Item Value Reference Range Comments PARTIAL THROMBOPLASTIN TIME (BEAKER) (test 96.3 seconds 22.5-36.0 fqme=026) [id number] 03:53:00 Test Item Value Reference Range Comments PARTIAL THROMBOPLASTIN TIME (BEAKER) (test 165.8 seconds 22.5-36.0 uowl=998) [id number] 19:58:00 Test Item Value Reference Range Comments PARTIAL THROMBOPLASTIN TIME (BEAKER) (test 52.7 seconds 22.5-36.0 jgkm=255) [id number] 14:00:00 Test Item Value Reference Range Comments PARTIAL THROMBOPLASTIN TIME (BEAKER) (test 73.9 seconds 22.5-36.0 eewt=544) BASIC METABOLIC [id number] 07:46:00 Test Item Value Reference Range Comments SODIUM (BEAKER) (test 138 meq/L 136-145 cnaz=761) POTASSIUM (BEAKER) (test 4.1 meq/L 3.5-5.1 tzdy=911) CHLORIDE (BEAKER) (test 102 meq/L 98-107 xswj=131) CO2 (BEAKER) (test 26 meq/L 22-29 aznm=799) BLOOD UREA NITROGEN 19 mg/dL 7-21 (BEAKER) (test ygma=570) CREATININE (BEAKER) (test 1.52 mg/dL 0.57-1.25 euvk=234) GLUCOSE RANDOM (BEAKER) 99 mg/dL 70-105 (test rqpy=393) CALCIUM (BEAKER) (test 8.4 mg/dL 8.4-10.2 Discordant result gxdl=082) compared to previous result. Clinical correlation required EGFR (BEAKER) (test 48 mL/min/1.73 sq m ESTIMATED GFR IS NOT xgjl=2825) ACCURATE CREATININE CLEARANCE IN PREDICTING GLOMERULAR FILTRATION RATE. ESTIMATED GFR IS NOT APPLICABLE FOR DIALYSIS PATIENTS. [id number] 06:49:00 Test Item Value Reference Range Comments PARTIAL THROMBOPLASTIN TIME (BEAKER) (test 93.8 seconds 22.5-36.0 lpya=273) BLOOD [id number] 08:28:00 Test Item Value Reference Range Comments CULTURE (BEAKER) (test qplz=0509) No growth in 5 days BLOOD [id number] 08:24:00 Test Item Value Reference Range Comments CULTURE (BEAKER) (test yrmq=8840) No growth in 5 days BASIC METABOLIC [id number] 07:39:00 Test Item Value Reference Range Comments SODIUM (BEAKER) (test 144 meq/L 136-145 aujh=424) POTASSIUM (BEAKER) (test 2.9 meq/L 3.5-5.1 yrhu=179) CHLORIDE (BEAKER) (test 113 meq/L 98-107 fpru=653) CO2 (BEAKER) (test 24 meq/L 22-29 urlt=037) BLOOD UREA NITROGEN 16 mg/dL 7-21 (BEAKER) (test dcxe=152) CREATININE (BEAKER) (test 1.07 mg/dL 0.57-1.25 dbho=021) GLUCOSE RANDOM (BEAKER) 81 mg/dL 70-105 (test yflx=007) CALCIUM (BEAKER) (test 6.2 mg/dL 8.4-10.2 pgud=617) EGFR (BEAKER) (test 73 mL/min/1.73 sq m ESTIMATED GFR IS NOT ifag=8912) ACCURATE CREATININE CLEARANCE IN PREDICTING GLOMERULAR FILTRATION RATE. ESTIMATED GFR IS NOT APPLICABLE FOR DIALYSIS PATIENTS. [id number] 07:11:00 Test Item Value Reference Range Comments PARTIAL THROMBOPLASTIN TIME (BEAKER) (test 69.4 seconds 22.5-36.0 mesc=414) [id number] 19:08:00 Test Item Value Reference Range Comments PARTIAL THROMBOPLASTIN TIME (BEAKER) (test 81.7 seconds 22.5-36.0 dwvm=246) BASIC METABOLIC [id number] 13:04:00 Test Item Value Reference Range Comments SODIUM (BEAKER) (test 136 meq/L 136-145 loin=080) POTASSIUM (BEAKER) (test 3.9 meq/L 3.5-5.1 kzbs=605) CHLORIDE (BEAKER) (test 101 meq/L 98-107 zsan=776) CO2 (BEAKER) (test 26 meq/L 22-29 ukdw=763) BLOOD UREA NITROGEN 21 mg/dL 7-21 (BEAKER) (test spwp=502) CREATININE (BEAKER) (test 1.59 mg/dL 0.57-1.25 crgd=078) GLUCOSE RANDOM (BEAKER) 112 mg/dL 70-105 (test rezn=204) CALCIUM (BEAKER) (test 8.5 mg/dL 8.4-10.2 zqcu=870) EGFR (BEAKER) (test 46 mL/min/1.73 sq m ESTIMATED GFR IS NOT xnau=8134) ACCURATE CREATININE CLEARANCE IN PREDICTING GLOMERULAR FILTRATION RATE. ESTIMATED GFR IS NOT APPLICABLE FOR DIALYSIS PATIENTS. [id number] 12:52:00 Test Item Value Reference Range Comments PARTIAL THROMBOPLASTIN TIME (BEAKER) (test 82.7 seconds 22.5-36.0 wxmr=238) CBC (HEMOGRAM ONLY)2019-07-14 12:42:00 Test Item Value Reference Range Comments WHITE BLOOD CELL COUNT (BEAKER) (test qoff=238) 6.9 K/ L 3.5-10.5 RED BLOOD CELL COUNT (BEAKER) (test wowb=781) 3.20 M/ L 4.63-6.08 HEMOGLOBIN (BEAKER) (test wqxc=719) 8.9 GM/DL 13.7-17.5 HEMATOCRIT (BEAKER) (test faut=969) 27.9 % 40.1-51.0 MEAN CORPUSCULAR VOLUME (BEAKER) (test qwwg=356) 87.2 fL 79.0-92.2 MEAN CORPUSCULAR HEMOGLOBIN (BEAKER) (test 27.8 pg 25.7-32.2 uvwe=473) MEAN CORPUSCULAR HEMOGLOBIN CONC (BEAKER) (test 31.9 GM/DL 32.3-36.5 pytg=973) RED CELL DISTRIBUTION WIDTH (BEAKER) (test 14.0 % 11.6-14.4 jnbg=284) PLATELET COUNT (BEAKER) (test iogw=002) 144 K/CU MM 150-450 MEAN PLATELET VOLUME (BEAKER) (test zccs=383) 9.7 fL 9.4-12.4 NUCLEATED RED BLOOD CELLS (BEAKER) (test 0 /100 WBC 0-0 mxfo=777) [id number] 07:00:00 Test Item Value Reference Range Comments PARTIAL THROMBOPLASTIN TIME (BEAKER) (test 66.0 seconds 22.5-36.0 vwcv=819) [id number] 00:17:00 Test Item Value Reference Range Comments PARTIAL THROMBOPLASTIN TIME (BEAKER) (test 91.7 seconds 22.5-36.0 fvfg=879) U/S, RENAL, [id number] 22:01:00Reason for exam:->evaluate for improvement in hydronephrosisFINAL REPORT Renal ultrasound dated 07/13/2019 CLINICAL HISTORY: Left hydronephrosis on the previous cross-sectional imaging COMPARISON: None. Correlation is made with CT of the abdomen and pelvis dated 07/08/2019 Comment: Real-time transabdominal renal ultrasound was performed. Right kidney measures 9.7 x 4.7 x 5.3 cm. Left kidney measures 12.8 x 6.5 x 5.3 cm. Right renal cortex measures 0.8 cm. Left renal cortex measures 1.2 cm. Renal parenchymal echogenicity: Normal There is persistent, moderate left hydronephrosis, grossly unchanged from previous. No obstructing stone or lesion is identified on the images provided. No cyst is identified on either kidney. Dopplerultrasound demonstrates a patent main renal artery and vein bilaterally. A Multani catheter decompresses the urinary bladder. Impression: Grossly stable left hydronephrosis when compared to recent previous CT abdomen and pelvis. No obstructing stone or lesion is identified on the images provided. Signed: Danny Mccurdy MDReport Verified Date/Time: 2019 22:01:00 Electronically signed by: DANNY MCCURDY M.D. on 2019 10:01 PMBASIC METABOLIC [id number] 10:16:00 Test Item Value Reference Range Comments SODIUM (BEAKER) (test 139 meq/L 136-145 bozo=145) POTASSIUM (BEAKER) (test 4.1 meq/L 3.5-5.1 wzsg=799) CHLORIDE (BEAKER) (test 104 meq/L 98-107 ufqy=796) CO2 (BEAKER) (test 29 meq/L 22-29 iuhb=029) BLOOD UREA NITROGEN 21 mg/dL 7-21 (BEAKER) (test dxac=954) CREATININE (BEAKER) (test 1.58 mg/dL 0.57-1.25 ekfa=588) GLUCOSE RANDOM (BEAKER) 102 mg/dL 70-105 (test zddf=972) CALCIUM (BEAKER) (test 8.7 mg/dL 8.4-10.2 zixi=001) EGFR (BEAKER) (test 46 mL/min/1.73 sq m ESTIMATED GFR IS NOT elui=9356) ACCURATE CREATININE CLEARANCE IN PREDICTING GLOMERULAR FILTRATION RATE. ESTIMATED GFR IS NOT APPLICABLE FOR DIALYSIS PATIENTS. PROTHROMBIN TIME/[id number] 10:00:00 Test Item Value Reference Range Comments PROTIME (BEAKER) (test hxdi=105) 14.5 seconds 11.9-14.2 INR (BEAKER) (test vofb=509) 1.2 <=5.9 Effective 12/06/2018: PT Reference Range ChangeNew: 11.9-14.2 Previous: 11.7- 14.7RECOMMENDED COUMADIN/WARFARIN INR THERAPY RANGESSTANDARD DOSE: 2.0-3.0 Includes: PROPHYLAXIS for venous thrombosis, systemic embolization; TREATMENT for venous thrombosis and/or pulmonary embolus.HIGH RISK: Target INR is2.5-3.5 for patients wiht mechanical heart valves.[id number] 02:20:00 Test Item Value Reference Range Comments PARTIAL THROMBOPLASTIN TIME (BEAKER) (test 77.8 seconds 22.5-36.0 lzna=803) CBC W/PLT COUNT & AUTO [id number] 02:05:00 Test Item Value Reference Range Comments WHITE BLOOD CELL COUNT 4.9 K/ L 3.5-10.5 (BEAKER) (test nsdj=386) RED BLOOD CELL COUNT (BEAKER) 2.90 M/ L 4.63-6.08 (test avel=914) HEMOGLOBIN (BEAKER) (test 8.3 GM/DL 13.7-17.5 kaew=356) HEMATOCRIT (BEAKER) (test 25.0 % 40.1-51.0 mjfp=712) MEAN CORPUSCULAR VOLUME 86.2 fL 79.0-92.2 Discordant MCV results (BEAKER) (test vidi=028) compared to previous results; clinical correlation required. MEAN CORPUSCULAR HEMOGLOBIN 28.6 pg 25.7-32.2 (BEAKER) (test axpq=282) MEAN CORPUSCULAR HEMOGLOBIN 33.2 GM/DL 32.3-36.5 CONC (BEAKER) (test jkqb=818) RED CELL DISTRIBUTION WIDTH 14.0 % 11.6-14.4 (BEAKER) (test cacp=187) PLATELET COUNT (BEAKER) (test 177 K/CU MM 150-450 kpln=771) MEAN PLATELET VOLUME (BEAKER) 9.9 fL 9.4-12.4 (test rzme=054) NUCLEATED RED BLOOD CELLS 0 /100 WBC 0-0 (BEAKER) (test ixgi=296) NEUTROPHILS RELATIVE PERCENT 70 % (BEAKER) (test mczl=768) LYMPHOCYTES RELATIVE PERCENT 13 % (BEAKER) (test ngef=592) MONOCYTES RELATIVE PERCENT 12 % (BEAKER) (test quxc=112) EOSINOPHILS RELATIVE PERCENT 4 % (BEAKER) (test lwam=430) BASOPHILS RELATIVE PERCENT 1 % (BEAKER) (test tnlw=790) NEUTROPHILS ABSOLUTE COUNT 3.43 K/ L 1.78-5.38 (BEAKER) (test rnsq=223) LYMPHOCYTES ABSOLUTE COUNT 0.65 K/ L 1.32-3.57 (BEAKER) (test aglo=266) MONOCYTES ABSOLUTE COUNT 0.56 K/ L 0.30-0.82 (BEAKER) (test gpda=780) EOSINOPHILS ABSOLUTE COUNT 0.19 K/ L 0.04-0.54 (BEAKER) (test bory=656) BASOPHILS ABSOLUTE COUNT 0.03 K/ L 0.01-0.08 (BEAKER) (test wxwd=319) IMMATURE 0 % 0-1 GRANULOCYTES-RELATIVE PERCENT (BEAKER) (test obho=3376) [id number] 18:54:00 Test Item Value Reference Range Comments PARTIAL THROMBOPLASTIN TIME (BEAKER) (test 88.8 seconds 22.5-36.0 yjfb=345) CREATINE KINASE (CK)2019-07-12 14:17:00 Test Item Value Reference Range Comments CREATINE KINASE TOTAL (BEAKER) (test tatw=140) 19 U/L 29-200 TROPONIN [id number] 14:04:00 Test Item Value Reference Range Comments TROPONIN I (BEAKER) (test dflm=663) < ng/mL 0.00-0.03 Troponin I (TnI) levels [...] failure, acidosis, acute neurological disease, and persistent tachyarrhythmia.[id number] 12:51:00 Test Item Value Reference Range Comments PARTIAL THROMBOPLASTIN TIME (BEAKER) (test 68.9 seconds 22.5-36.0 oxwm=168) BASIC METABOLIC [id number] 12:50:00 Test Item Value Reference Range Comments SODIUM (BEAKER) (test 140 meq/L 136-145 xvpe=834) POTASSIUM (BEAKER) (test 4.2 meq/L 3.5-5.1 vejv=812) CHLORIDE (BEAKER) (test 106 meq/L 98-107 xkvh=111) CO2 (BEAKER) (test 27 meq/L 22-29 yxxd=147) BLOOD UREA NITROGEN 24 mg/dL 7-21 (BEAKER) (test ypdv=820) CREATININE (BEAKER) (test 1.63 mg/dL 0.57-1.25 obki=407) GLUCOSE RANDOM (BEAKER) 98 mg/dL 70-105 (test yxps=451) CALCIUM (BEAKER) (test 8.7 mg/dL 8.4-10.2 qwbf=365) EGFR (BEAKER) (test 45 mL/min/1.73 sq m ESTIMATED GFR IS NOT bkti=8630) ACCURATE CREATININE CLEARANCE IN PREDICTING GLOMERULAR FILTRATION RATE. ESTIMATED GFR IS NOT APPLICABLE FOR DIALYSIS PATIENTS. [id number] 05:18:00 Test Item Value Reference Range Comments PARTIAL THROMBOPLASTIN TIME (BEAKER) (test 79.6 seconds 22.5-36.0 onhn=003) CBC W/PLT COUNT & AUTO [id number] 05:00:00 Test Item Value Reference Range Comments WHITE BLOOD CELL COUNT (BEAKER) (test rwtt=217) 5.0 K/ L 3.5-10.5 RED BLOOD CELL COUNT (BEAKER) (test oykv=887) 2.69 M/ L 4.63-6.08 HEMOGLOBIN (BEAKER) (test crea=822) 7.5 GM/DL 13.7-17.5 HEMATOCRIT (BEAKER) (test vyhw=669) 24.3 % 40.1-51.0 MEAN CORPUSCULAR VOLUME (BEAKER) (test wnjs=663) 90.3 fL 79.0-92.2 MEAN CORPUSCULAR HEMOGLOBIN (BEAKER) (test 27.9 pg 25.7-32.2 saky=685) MEAN CORPUSCULAR HEMOGLOBIN CONC (BEAKER) (test 30.9 GM/DL 32.3-36.5 zjme=973) RED CELL DISTRIBUTION WIDTH (BEAKER) (test 14.4 % 11.6-14.4 yfwz=765) PLATELET COUNT (BEAKER) (test oqay=019) 125 K/CU MM 150-450 MEAN PLATELET VOLUME (BEAKER) (test inpr=208) 9.6 fL 9.4-12.4 NUCLEATED RED BLOOD CELLS (BEAKER) (test 0 /100 WBC 0-0 uiwc=957) NEUTROPHILS RELATIVE PERCENT (BEAKER) (test 71 % wgfu=982) LYMPHOCYTES RELATIVE PERCENT (BEAKER) (test 11 % mwwp=497) MONOCYTES RELATIVE PERCENT (BEAKER) (test 13 % aknz=323) EOSINOPHILS RELATIVE PERCENT (BEAKER) (test 4 % sbil=055) BASOPHILS RELATIVE PERCENT (BEAKER) (test 1 % eyyn=609) NEUTROPHILS ABSOLUTE COUNT (BEAKER) (test 3.52 K/ L 1.78-5.38 paas=505) LYMPHOCYTES ABSOLUTE COUNT (BEAKER) (test 0.57 K/ L 1.32-3.57 jiot=408) MONOCYTES ABSOLUTE COUNT (BEAKER) (test 0.65 K/ L 0.30-0.82 ihiu=206) EOSINOPHILS ABSOLUTE COUNT (BEAKER) (test 0.20 K/ L 0.04-0.54 zhvz=728) BASOPHILS ABSOLUTE COUNT (BEAKER) (test 0.03 K/ L 0.01-0.08 miwr=382) IMMATURE GRANULOCYTES-RELATIVE PERCENT (BEAKER) 0 % 0-1 (test lizw=5445) [id number] 22:20:00 Test Item Value Reference Range Comments PARTIAL THROMBOPLASTIN TIME (BEAKER) (test 69.1 seconds 22.5-36.0 iotz=202) [id number] 15:32:00 Test Item Value Reference Range Comments PARTIAL THROMBOPLASTIN TIME (BEAKER) (test 98.3 seconds 22.5-36.0 daxs=738) [id number] 08:31:00 Test Item Value Reference Range Comments PARTIAL THROMBOPLASTIN TIME (BEAKER) (test 93.2 seconds 22.5-36.0 josp=163) CBC (HEMOGRAM ONLY)2019-07-11 08:23:00 Test Item Value Reference Range Comments WHITE BLOOD CELL COUNT (BEAKER) (test pfqf=053) 7.5 K/ L 3.5-10.5 RED BLOOD CELL COUNT (BEAKER) (test wwos=588) 3.26 M/ L 4.63-6.08 HEMOGLOBIN (BEAKER) (test kccu=282) 9.1 GM/DL 13.7-17.5 HEMATOCRIT (BEAKER) (test ukul=779) 28.3 % 40.1-51.0 MEAN CORPUSCULAR VOLUME (BEAKER) (test khqn=353) 86.8 fL 79.0-92.2 MEAN CORPUSCULAR HEMOGLOBIN (BEAKER) (test 27.9 pg 25.7-32.2 wxhy=060) MEAN CORPUSCULAR HEMOGLOBIN CONC (BEAKER) (test 32.2 GM/DL 32.3-36.5 fkgn=688) RED CELL DISTRIBUTION WIDTH (BEAKER) (test 14.3 % 11.6-14.4 jozv=048) PLATELET COUNT (BEAKER) (test cxsq=556) 154 K/CU MM 150-450 MEAN PLATELET VOLUME (BEAKER) (test cybq=984) 9.9 fL 9.4-12.4 NUCLEATED RED BLOOD CELLS (BEAKER) (test 0 /100 WBC 0-0 rhzg=038) [id number] 02:03:00 Test Item Value Reference Range Comments MAGNESIUM (BEAKER) (test jzbh=093) 1.7 mg/dL 1.6-2.6 BASIC METABOLIC [id number] 02:03:00 Test Item Value Reference Range Comments SODIUM (BEAKER) (test 141 meq/L 136-145 oojw=687) POTASSIUM (BEAKER) (test 4.1 meq/L 3.5-5.1 nzvo=558) CHLORIDE (BEAKER) (test 107 meq/L 98-107 rxmb=485) CO2 (BEAKER) (test 23 meq/L 22-29 rcwy=651) BLOOD UREA NITROGEN 35 mg/dL 7-21 (BEAKER) (test qmib=959) CREATININE (BEAKER) (test 1.81 mg/dL 0.57-1.25 zlrp=910) GLUCOSE RANDOM (BEAKER) 100 mg/dL 70-105 (test pizp=378) CALCIUM (BEAKER) (test 9.2 mg/dL 8.4-10.2 oleh=843) EGFR (BEAKER) (test 40 mL/min/1.73 sq m ESTIMATED GFR IS NOT wzpo=3670) ACCURATE CREATININE CLEARANCE IN PREDICTING GLOMERULAR FILTRATION RATE. ESTIMATED GFR IS NOT APPLICABLE FOR DIALYSIS PATIENTS. HEPATIC FUNCTION [id number] 02:03:00 Test Item Value Reference Range Comments TOTAL PROTEIN (BEAKER) (test soti=095) 5.9 gm/dL 6.0-8.3 ALBUMIN (BEAKER) (test rszu=9700) 3.1 g/dL 3.5-5.0 BILIRUBIN TOTAL (BEAKER) (test pvjz=029) 0.5 mg/dL 0.2-1.2 BILIRUBIN DIRECT (BEAKER) (test camy=457) 0.3 mg/dL 0.1-0.5 ALKALINE PHOSPHATASE (BEAKER) (test gwol=095) 113 U/L 40-150 AST (SGOT) (BEAKER) (test cwci=855) 23 U/L 5-34 ALT (SGPT) (BEAKER) (test asuc=043) 10 U/L 6-55 [id number] 01:50:00 Test Item Value Reference Range Comments PARTIAL THROMBOPLASTIN TIME (BEAKER) (test 82.4 seconds 22.5-36.0 rggv=276) CBC W/PLT COUNT & AUTO [id number] 01:44:00 Test Item Value Reference Range Comments WHITE BLOOD CELL COUNT (BEAKER) (test mvce=007) 7.3 K/ L 3.5-10.5 RED BLOOD CELL COUNT (BEAKER) (test pinn=402) 3.14 M/ L 4.63-6.08 HEMOGLOBIN (BEAKER) (test acqy=261) 8.9 GM/DL 13.7-17.5 HEMATOCRIT (BEAKER) (test gzdj=499) 27.3 % 40.1-51.0 MEAN CORPUSCULAR VOLUME (BEAKER) (test ihyv=661) 86.9 fL 79.0-92.2 MEAN CORPUSCULAR HEMOGLOBIN (BEAKER) (test 28.3 pg 25.7-32.2 rofh=889) MEAN CORPUSCULAR HEMOGLOBIN CONC (BEAKER) (test 32.6 GM/DL 32.3-36.5 ouet=419) RED CELL DISTRIBUTION WIDTH (BEAKER) (test 14.2 % 11.6-14.4 dxqr=540) PLATELET COUNT (BEAKER) (test gcuz=889) 124 K/CU MM 150-450 MEAN PLATELET VOLUME (BEAKER) (test sbyj=089) 9.7 fL 9.4-12.4 NUCLEATED RED BLOOD CELLS (BEAKER) (test 0 /100 WBC 0-0 okrv=015) NEUTROPHILS RELATIVE PERCENT (BEAKER) (test 74 % esia=053) LYMPHOCYTES RELATIVE PERCENT (BEAKER) (test 9 % ytro=011) MONOCYTES RELATIVE PERCENT (BEAKER) (test 12 % pjiv=053) EOSINOPHILS RELATIVE PERCENT (BEAKER) (test 4 % lcss=036) BASOPHILS RELATIVE PERCENT (BEAKER) (test 1 % ujcp=236) NEUTROPHILS ABSOLUTE COUNT (BEAKER) (test 5.38 K/ L 1.78-5.38 ugky=713) LYMPHOCYTES ABSOLUTE COUNT (BEAKER) (test 0.68 K/ L 1.32-3.57 puoq=213) MONOCYTES ABSOLUTE COUNT (BEAKER) (test 0.84 K/ L 0.30-0.82 emgs=498) EOSINOPHILS ABSOLUTE COUNT (BEAKER) (test 0.30 K/ L 0.04-0.54 khcl=921) BASOPHILS ABSOLUTE COUNT (BEAKER) (test 0.05 K/ L 0.01-0.08 wquz=209) IMMATURE GRANULOCYTES-RELATIVE PERCENT (BEAKER) 0 % 0-1 (test qqez=3722) [id number] 18:56:00 Test Item Value Reference Range Comments PARTIAL THROMBOPLASTIN TIME (BEAKER) (test 56.4 seconds 22.5-36.0 xlqi=325) [id number] 12:15:00 Test Item Value Reference Range Comments MAGNESIUM (BEAKER) (test 1.8 mg/dL 1.6-2.6 Specimen slightly hemolyzed fwex=472) BASIC METABOLIC [id number] 12:15:00 Test Item Value Reference Range Comments SODIUM (BEAKER) (test 135 meq/L 136-145 xgvx=915) POTASSIUM (BEAKER) (test 4.3 meq/L 3.5-5.1 Specimen slightly kmlt=678) hemolyzed CHLORIDE (BEAKER) (test 105 meq/L 98-107 mmzl=808) CO2 (BEAKER) (test 23 meq/L 22-29 zlhh=397) BLOOD UREA NITROGEN 43 mg/dL 7-21 (BEAKER) (test lrmk=112) CREATININE (BEAKER) (test 2.15 mg/dL 0.57-1.25 Specimen slightly xhqh=464) hemolyzed GLUCOSE RANDOM (BEAKER) 99 mg/dL 70-105 (test ctmg=656) CALCIUM (BEAKER) (test 9.0 mg/dL 8.4-10.2 xakm=154) EGFR (BEAKER) (test 32 mL/min/1.73 sq m ESTIMATED GFR IS NOT nwno=6522) ACCURATE CREATININE CLEARANCE IN PREDICTING GLOMERULAR FILTRATION RATE. ESTIMATED GFR IS NOT APPLICABLE FOR DIALYSIS PATIENTS. HEPATIC FUNCTION [id number] 12:15:00 Test Item Value Reference Range Comments TOTAL PROTEIN (BEAKER) (test 6.5 gm/dL 6.0-8.3 Specimen slightly hemolyzed ftor=039) ALBUMIN (BEAKER) (test 3.3 g/dL 3.5-5.0 Specimen slightly hemolyzed xamj=8957) BILIRUBIN TOTAL (BEAKER) (test 0.7 mg/dL 0.2-1.2 Specimen slightly hemolyzed dkxz=974) BILIRUBIN DIRECT (BEAKER) (test 0.3 mg/dL 0.1-0.5 Specimen slightly hemolyzed adzk=495) ALKALINE PHOSPHATASE (BEAKER) 129 U/L 40-150 (test yojy=307) AST (SGOT) (BEAKER) (test 25 U/L 5-34 Specimen slightly hemolyzed gfcn=635) ALT (SGPT) (BEAKER) (test 12 U/L 6-55 Specimen slightly hemolyzed oauv=093) [id number] 11:59:00 Test Item Value Reference Range Comments PARTIAL THROMBOPLASTIN TIME (BEAKER) (test 31.1 seconds 22.5-36.0 atkd=123) CHLORIDE, RANDOM [id number] 10:17:00 Test Item Value Reference Range Comments CHLORIDE URINE (BEAKER) (test sjlr=936) 57 meq/L Reference Range: No NormalsCREATININE, RANDOM [id number] 10:17:00 Test Item Value Reference Range Comments CREATININE URINE (BEAKER) (test bvze=979) 64.6 mg/dL Reference Range: No NormalsPOTASSIUM, RANDOM [id number] 10:17:00 Test Item Value Reference Range Comments POTASSIUM URINE (BEAKER) (test qhvd=404) 11.9 meq/L Reference Range: No NormalsSODIUM, RANDOM [id number] 10:17:00 Test Item Value Reference Range Comments SODIUM URINE (BEAKER) (test rzfo=368) 62 meq/L Reference Range: No NormalsUREA NITROGEN, RANDOM [id number] 10:17:00 Test Item Value Reference Range Comments UREA NITROGEN URINE (BEAKER) (test bvrh=053) 549 mg/dL Reference Range: No [id number] 23:02:00 Test Item Value Reference Range Comments PARTIAL THROMBOPLASTIN TIME (BEAKER) (test 100.7 seconds 22.5-36.0 efqh=204) C. DIFFICILE GDH [id number] 19:13:00 Test Item Value Reference Range Comments CDT TOXIN (test Negative Negative zgkx=[id number]) CDT GDH ANTIGEN (test Negative Negative No indication of Clostridium qqta=[id number]) difficile infection and no colonization. Discontinue enteric isolation and therapy. Testing performed by [employer] Rapid Cassette Assay. For GDH, published sensitivity of the assay is 98.7% compared to cytotoxicity testing. For Toxin AB, published sensitivity is 87.8% and specificity 99.4% compared to cytotoxicity testing.Verification of kit performance was done by the [facility] Microbiology Lab prior to clinical use.[id number] 15:45:00 Test Item Value Reference Range Comments PARTIAL THROMBOPLASTIN TIME (BEAKER) (test 93.8 seconds 22.5-36.0 ewip=769) BASIC METABOLIC [id number] 12:05:00 Test Item Value Reference Range Comments SODIUM (BEAKER) (test 136 meq/L 136-145 fzrc=068) POTASSIUM (BEAKER) (test 4.5 meq/L 3.5-5.1 dhaj=561) CHLORIDE (BEAKER) (test 105 meq/L 98-107 ptlb=574) CO2 (BEAKER) (test 19 meq/L 22-29 zmah=928) BLOOD UREA NITROGEN 55 mg/dL 7-21 (BEAKER) (test dgnr=045) CREATININE (BEAKER) (test 2.24 mg/dL 0.57-1.25 vysh=579) GLUCOSE RANDOM (BEAKER) 86 mg/dL 70-105 (test hhgm=002) CALCIUM (BEAKER) (test 8.4 mg/dL 8.4-10.2 pujd=089) EGFR (BEAKER) (test 31 mL/min/1.73 sq m ESTIMATED GFR IS NOT vxkp=8041) ACCURATE CREATININE CLEARANCE IN PREDICTING GLOMERULAR FILTRATION RATE. ESTIMATED GFR IS NOT APPLICABLE FOR DIALYSIS PATIENTS. [id number] 12:05:00 Test Item Value Reference Range Comments MAGNESIUM (BEAKER) (test rptg=635) 1.8 mg/dL 1.6-2.6 HEPATIC FUNCTION [id number] 12:05:00 Test Item Value Reference Range Comments TOTAL PROTEIN (BEAKER) (test jzhx=105) 5.5 gm/dL 6.0-8.3 ALBUMIN (BEAKER) (test mspz=3766) 2.9 g/dL 3.5-5.0 BILIRUBIN TOTAL (BEAKER) (test fyxr=106) 0.6 mg/dL 0.2-1.2 BILIRUBIN DIRECT (BEAKER) (test bpev=445) 0.3 mg/dL 0.1-0.5 ALKALINE PHOSPHATASE (BEAKER) (test jeyu=126) 106 U/L 40-150 AST (SGOT) (BEAKER) (test ktyk=701) 21 U/L 5-34 ALT (SGPT) (BEAKER) (test tfjn=878) 11 U/L 6-55 CBC W/PLT COUNT & AUTO [id number] 08:26:00 Test Item Value Reference Range Comments WHITE BLOOD CELL COUNT (BEAKER) (test aujt=212) 6.9 K/ L 3.5-10.5 RED BLOOD CELL COUNT (BEAKER) (test wlhy=495) 3.16 M/ L 4.63-6.08 HEMOGLOBIN (BEAKER) (test zfgi=110) 9.0 GM/DL 13.7-17.5 HEMATOCRIT (BEAKER) (test suhj=157) 27.6 % 40.1-51.0 MEAN CORPUSCULAR VOLUME (BEAKER) (test eldh=271) 87.3 fL 79.0-92.2 MEAN CORPUSCULAR HEMOGLOBIN (BEAKER) (test 28.5 pg 25.7-32.2 ocpf=842) MEAN CORPUSCULAR HEMOGLOBIN CONC (BEAKER) (test 32.6 GM/DL 32.3-36.5 eqgj=113) RED CELL DISTRIBUTION WIDTH (BEAKER) (test 13.9 % 11.6-14.4 iwuc=522) PLATELET COUNT (BEAKER) (test znhk=162) 115 K/CU MM 150-450 MEAN PLATELET VOLUME (BEAKER) (test ebdo=052) 9.7 fL 9.4-12.4 NUCLEATED RED BLOOD CELLS (BEAKER) (test 0 /100 WBC 0-0 grwe=842) NEUTROPHILS RELATIVE PERCENT (BEAKER) (test 71 % cwof=604) LYMPHOCYTES RELATIVE PERCENT (BEAKER) (test 9 % xptw=053) MONOCYTES RELATIVE PERCENT (BEAKER) (test 12 % cbxh=957) EOSINOPHILS RELATIVE PERCENT (BEAKER) (test 6 % dwhz=744) BASOPHILS RELATIVE PERCENT (BEAKER) (test 1 % ljie=499) NEUTROPHILS ABSOLUTE COUNT (BEAKER) (test 4.94 K/ L 1.78-5.38 vtng=441) LYMPHOCYTES ABSOLUTE COUNT (BEAKER) (test 0.60 K/ L 1.32-3.57 kvui=919) MONOCYTES ABSOLUTE COUNT (BEAKER) (test 0.84 K/ L 0.30-0.82 hikh=754) EOSINOPHILS ABSOLUTE COUNT (BEAKER) (test 0.38 K/ L 0.04-0.54 zkfa=913) BASOPHILS ABSOLUTE COUNT (BEAKER) (test 0.08 K/ L 0.01-0.08 wmwd=231) IMMATURE GRANULOCYTES-RELATIVE PERCENT (BEAKER) 1 % 0-1 (test vvcc=6797) [id number] 06:19:00 Test Item Value Reference Range Comments PARTIAL THROMBOPLASTIN TIME (BEAKER) (test 107.5 seconds 22.5-36.0 bqww=001) [id number] 21:36:00 Test Item Value Reference Range Comments PARTIAL THROMBOPLASTIN TIME (BEAKER) (test 59.5 seconds 22.5-36.0 vmds=919) [id number] 19:13:00 Test Item Value Reference Range Comments PARTIAL THROMBOPLASTIN TIME (BEAKER) (test 136.8 seconds 22.5-36.0 eisq=612) Prior to initiating [id number] 12:13:00 Test Item Value Reference Range Comments PARTIAL THROMBOPLASTIN TIME (BEAKER) (test 38.4 seconds 22.5-36.0 becs=849) 6 hours after starting heparin infusion and as indicated per sliding scaleCBC ( HEMOGRAM ONLY)[id number] 12:06:00 Test Item Value Reference Range Comments WHITE BLOOD CELL COUNT (BEAKER) (test ezse=322) 8.9 K/ L 3.5-10.5 RED BLOOD CELL COUNT (BEAKER) (test ncvn=142) 3.54 M/ L 4.63-6.08 HEMOGLOBIN (BEAKER) (test ubdo=025) 10.1 GM/DL 13.7-17.5 HEMATOCRIT (BEAKER) (test gpsi=223) 30.4 % 40.1-51.0 MEAN CORPUSCULAR VOLUME (BEAKER) (test tfnr=234) 85.9 fL 79.0-92.2 MEAN CORPUSCULAR HEMOGLOBIN (BEAKER) (test 28.5 pg 25.7-32.2 bhef=856) MEAN CORPUSCULAR HEMOGLOBIN CONC (BEAKER) (test 33.2 GM/DL 32.3-36.5 xcac=342) RED CELL DISTRIBUTION WIDTH (BEAKER) (test 13.9 % 11.6-14.4 ltxu=373) PLATELET COUNT (BEAKER) (test gdcc=005) 118 K/CU MM 150-450 MEAN PLATELET VOLUME (BEAKER) (test ucio=378) 10.3 fL 9.4-12.4 NUCLEATED RED BLOOD CELLS (BEAKER) (test 0 /100 WBC 0-0 ieek=563) URINALYSIS W/ REFLEX URINE [id number] 08:20:00 Test Item Value Reference Range Comments COLOR (BEAKER) (test qpyx=297) Yellow CLARITY (BEAKER) (test mudr=312) Cloudy SPECIFIC GRAVITY UA (BEAKER) (test qfqt=126) 1.013 1.001-1.035 PH UA (BEAKER) (test wkdn=584) 6.5 5.0-8.0 PROTEIN UA (BEAKER) (test lxik=561) 100 mg/dL Negative GLUCOSE UA (BEAKER) (test htte=641) Negative Negative KETONES UA (BEAKER) (test zpar=077) Negative Negative BILIRUBIN UA (BEAKER) (test rdib=924) Negative Negative BLOOD UA (BEAKER) (test hwmr=384) Large Negative NITRITE UA (BEAKER) (test egps=485) Positive Negative LEUKOCYTE ESTERASE UA (BEAKER) (test iyrb=554) Large Negative UROBILINOGEN UA (BEAKER) (test uovn=398) 0.2 mg/dL 0.2-1.0 RBC UA (BEAKER) (test wrjn=403) 82 /HPF WBC UA (BEAKER) (test omkb=443) 710 /HPF BACTERIA (BEAKER) (test ooqh=616) Occasional SQUAMOUS EPITHELIAL (BEAKER) (test caxq=220) 2 /HPF YEAST (BEAKER) (test bxmm=5766) Few SOURCE(BEAKER) (test chfk=2992) CT, [id number] 06:38:00FINAL REPORT CT, ABDOMEN \\T \\ PELVIS, WITHOUT IV CONTRAST INDICATION: LLQ abdominal pain, diverticulitis suspectedContrast held due to renal failure; h/o bladder cancer COMPARISON: CT abdomen pelvis dated 06/15/2019. TECHNIQUE:Noncontrast abdomen and pelvis CT. Coronal and sagittal reformatted images obtained. DOSE REDUCTION: Dose modulation, iterative reconstruction, and/or weight-based adjustment of the mA/ kV was utilized to reduce the radiation dose to as low as reasonably achievable. FINDINGS: Lower thorax: Nonspecific groundglass airspace opacities in the left lower lobemay be related to atelectasis however atypical infection should be excluded clinically. Right basilar dependent atelectasis. No pleural effusion. The heart is normal in size. No pericardial effusion. Liver: Lack of intravenous contrast material limits evaluation for suspicious hepatic lesions. Gallbladder and biliary tree: Hyperdensity within the gallbladder lumen likely related to biliary sludge. No intra or extrahepatic biliary ductal dilatation.Pancreas: No acute findings.Spleen: No acute findingsAdrenal Glands: No acute findings.Kidneys and ureters: Mild right pelvocaliectasis no right hydroureter. Moderate left hydronephrosis , new in the interval the left ureter distal to the UPJ is decompressed, findings suggestive of stricturing or stenosis.. No contour deforming renal lesions.Bladder and reproductive organs: Postsurgical changes of a cystoprostatectomy with neobladder somewhat distended in the pelvis. Stomach and Duodenum: No significant findings.Small and large intestine: The rectum is fluid-filled, nonspecific however can be seen in setting of diarrheal illness. Small large bowel are normal in caliber no abnormal bowel wall thickening. Diverticulosis of the large bowel however mesenteric inflammatory stranding nodularity in the setting of peritoneal carcinomatosis particularly surrounding the splenic flexure limits evaluation for diverticulitis..Appendix: Normal. Major vascular structures: Normal aortic caliber.Peritoneum and retroperitoneum: Interval progression of soft tissuenodularity predominantly in the upper abdomen and anterior pelvis consistent with peritoneal carcinomatosis. Multiple prominent indeterminate retroperitoneal lymph nodes. .Skeleton: No acute bony abnormality.Additional findings: Nonspecific prominent lymph nodes in the left inguinal region, are indeterminate, unchanged.IMPRESSION: Postsurgical changes of a cystoprostatectomy with neobladder creation in the pelvis. New mild right pelvocaliectasis and moderate left hydronephrosis. No obstructing stone or masses identified. However with inflammatory stranding surrounding the left ureter, possibly resulting in stricturing secondary to peritoneal carcinomatosis. However lack of intravenous contrastmaterial limits evaluation. Possible slight interval progression of peritoneal carcinomatosis. Nonspecific groundglass airspace opacities in the left lower lobe may be related to atelectasis however atypical infection should be excluded clinically. The rectum is fluid-filled, nonspecific however can be seen in setting of diarrheal illness. Diverticulosis of the large bowel wall thickening with inflammatory stranding surrounding the splenic flexure may be related to inflammatory stranding in the setting of peritoneal carcinomatosis versus diverticulitis, correlate clinically. Signed: Patricia [facility]le [facility] Verified Date/Time: 07/08/2019 06:38:27 BASIC METABOLIC [id number] 04:23:00 Test Item Value Reference Range Comments SODIUM (BEAKER) (test 133 meq/L 136-145 xeev=471) POTASSIUM (BEAKER) (test 4.5 meq/L 3.5-5.1 kybm=845) CHLORIDE (BEAKER) (test 97 meq/L 98-107 hpim=947) CO2 (BEAKER) (test 21 meq/L 22-29 ahaf=566) BLOOD UREA NITROGEN 68 mg/dL 7-21 (BEAKER) (test nspd=078) CREATININE (BEAKER) (test 3.19 mg/dL 0.57-1.25 pokx=295) GLUCOSE RANDOM (BEAKER) 117 mg/dL 70-105 (test zggy=106) CALCIUM (BEAKER) (test 10.7 mg/dL 8.4-10.2 todv=130) EGFR (BEAKER) (test 21 mL/min/1.73 sq m ESTIMATED GFR IS NOT lxzc=4241) ACCURATE CREATININE CLEARANCE IN PREDICTING GLOMERULAR FILTRATION RATE. ESTIMATED GFR IS NOT APPLICABLE FOR DIALYSIS PATIENTS. CBC W/PLT COUNT & AUTO [id number] 04:08:00 Test Item Value Reference Range Comments WHITE BLOOD CELL COUNT (BEAKER) (test fdof=171) 14.4 K/ L 3.5-10.5 RED BLOOD CELL COUNT (BEAKER) (test qaqk=614) 4.38 M/ L 4.63-6.08 HEMOGLOBIN (BEAKER) (test afcr=429) 12.3 GM/DL 13.7-17.5 HEMATOCRIT (BEAKER) (test tgdx=211) 37.3 % 40.1-51.0 MEAN CORPUSCULAR VOLUME (BEAKER) (test fbcf=838) 85.2 fL 79.0-92.2 MEAN CORPUSCULAR HEMOGLOBIN (BEAKER) (test 28.1 pg 25.7-32.2 fxhy=965) MEAN CORPUSCULAR HEMOGLOBIN CONC (BEAKER) (test 33.0 GM/DL 32.3-36.5 bdam=362) RED CELL DISTRIBUTION WIDTH (BEAKER) (test 13.9 % 11.6-14.4 ahob=388) PLATELET COUNT (BEAKER) (test dhir=366) 145 K/CU MM 150-450 MEAN PLATELET VOLUME (BEAKER) (test eycl=196) 10.4 fL 9.4-12.4 NUCLEATED RED BLOOD CELLS (BEAKER) (test 0 /100 WBC 0-0 fkmj=326) NEUTROPHILS RELATIVE PERCENT (BEAKER) (test 80 % ygeu=766) LYMPHOCYTES RELATIVE PERCENT (BEAKER) (test 8 % wrep=718) MONOCYTES RELATIVE PERCENT (BEAKER) (test 10 % xfjw=830) EOSINOPHILS RELATIVE PERCENT (BEAKER) (test 2 % mbrt=521) BASOPHILS RELATIVE PERCENT (BEAKER) (test 1 % whnm=736) NEUTROPHILS ABSOLUTE COUNT (BEAKER) (test 11.49 K/ L 1.78-5.38 abfz=193) LYMPHOCYTES ABSOLUTE COUNT (BEAKER) (test 1.08 K/ L 1.32-3.57 qens=687) MONOCYTES ABSOLUTE COUNT (BEAKER) (test 1.39 K/ L 0.30-0.82 qufn=419) EOSINOPHILS ABSOLUTE COUNT (BEAKER) (test 0.23 K/ L 0.04-0.54 ycir=774) BASOPHILS ABSOLUTE COUNT (BEAKER) (test 0.16 K/ L 0.01-0.08 stpr=699) IMMATURE GRANULOCYTES-RELATIVE PERCENT (BEAKER) 1 % 0-1 (test iqcb=3229) TROPONIN [id number] 03:58:00 Test Item Value Reference Range Comments TROPONIN I (BEAKER) (test fufa=059) 0.01 ng/mL 0.00-0.03 Troponin I (TnI) levels must [...] failure, acidosis, acute neurological disease, and persistent tachyarrhythmia.[id number] 03:52:00 Test Item Value Reference Range Comments MAGNESIUM (BEAKER) (test whje=758) 2.4 mg/dL 1.6-2.6 [id number] 03:50:00 Test Item Value Reference Range Comments PROTIME (BEAKER) (test exnx=517) 22.1 seconds 11.9-14.2 INR (BEAKER) (test hqky=603) 2.0 <=5.9 PARTIAL THROMBOPLASTIN TIME (BEAKER) (test 37.1 seconds 22.5-36.0 muwj=176) Effective 12/06/2018: PT Reference Range ChangeNew: 11.9-14.2 Previous: 11.7- 14.7RECOMMENDED COUMADIN/WARFARIN INR THERAPY RANGESSTANDARD DOSE: 2.0-3.0 Includes: PROPHYLAXIS for venous thrombosis, systemic embolization; TREATMENT for venous thrombosis and/or pulmonary embolus.HIGH RISK: Target INR is2.5-3.5 for patients wiht mechanical heart valves.RAD, CHEST, 1 VIEW, NON [id number] 02:08:00Reason for exam:->ABDOMINAL PAINReason for exam:->CHEST PAINFINAL REPORT History: Chest pain. Comparison: 2018 Findings: A single view of the chest is submitted. The cardiomediastinal contours are unremarkable. There is no focal consolidation, pneumothorax, large pleural effusion or evidence of overt pulmonary edema. There is noacute bony abnormality. There are chronic left rib deformities. Impression: No acute abnormality. Signed: Danny Mccurdy [facility] Verified Date/Time: 07/08/2019 02: 08:35 BASIC METABOLIC [id number] 07:25:00 Test Item Value Reference Range Comments SODIUM (BEAKER) (test 140 meq/L 136-145 ykxa=874) POTASSIUM (BEAKER) (test 4.1 meq/L 3.5-5.1 vagt=317) CHLORIDE (BEAKER) (test 101 meq/L 98-107 nmgv=870) CO2 (BEAKER) (test 31 meq/L 22-29 caee=790) BLOOD UREA NITROGEN 23 mg/dL 7-21 (BEAKER) (test idsl=289) CREATININE (BEAKER) (test 1.36 mg/dL 0.57-1.25 gila=750) GLUCOSE RANDOM (BEAKER) 99 mg/dL 70-105 (test teji=167) CALCIUM (BEAKER) (test 8.7 mg/dL 8.4-10.2 xatz=245) EGFR (BEAKER) (test 55 mL/min/1.73 sq m ESTIMATED GFR IS NOT zurz=6529) ACCURATE CREATININE CLEARANCE IN PREDICTING GLOMERULAR FILTRATION RATE. ESTIMATED GFR IS NOT APPLICABLE FOR DIALYSIS PATIENTS. CBC W/PLT COUNT & AUTO [id number] 07:14:00 Test Item Value Reference Range Comments WHITE BLOOD CELL COUNT (BEAKER) (test lfiu=692) 8.8 K/ L 3.5-10.5 RED BLOOD CELL COUNT (BEAKER) (test ghgy=467) 3.15 M/ L 4.63-6.08 HEMOGLOBIN (BEAKER) (test udtv=793) 9.1 GM/DL 13.7-17.5 HEMATOCRIT (BEAKER) (test wqis=039) 28.1 % 40.1-51.0 MEAN CORPUSCULAR VOLUME (BEAKER) (test huug=818) 89.2 fL 79.0-92.2 MEAN CORPUSCULAR HEMOGLOBIN (BEAKER) (test 28.9 pg 25.7-32.2 vfzt=926) MEAN CORPUSCULAR HEMOGLOBIN CONC (BEAKER) (test 32.4 GM/DL 32.3-36.5 xbel=188) RED CELL DISTRIBUTION WIDTH (BEAKER) (test 13.8 % 11.6-14.4 uidm=956) PLATELET COUNT (BEAKER) (test pkbq=246) 190 K/CU MM 150-450 MEAN PLATELET VOLUME (BEAKER) (test gwqi=307) 9.8 fL 9.4-12.4 NUCLEATED RED BLOOD CELLS (BEAKER) (test 0 /100 WBC 0-0 jfde=957) NEUTROPHILS RELATIVE PERCENT (BEAKER) (test 55 % jtli=609) LYMPHOCYTES RELATIVE PERCENT (BEAKER) (test 14 % mmen=990) MONOCYTES RELATIVE PERCENT (BEAKER) (test 13 % hboy=323) EOSINOPHILS RELATIVE PERCENT (BEAKER) (test 15 % coyi=016) BASOPHILS RELATIVE PERCENT (BEAKER) (test 2 % orjk=290) NEUTROPHILS ABSOLUTE COUNT (BEAKER) (test 4.89 K/ L 1.78-5.38 xfsr=513) LYMPHOCYTES ABSOLUTE COUNT (BEAKER) (test 1.27 K/ L 1.32-3.57 wrwc=113) MONOCYTES ABSOLUTE COUNT (BEAKER) (test 1.10 K/ L 0.30-0.82 ugdt=573) EOSINOPHILS ABSOLUTE COUNT (BEAKER) (test 1.33 K/ L 0.04-0.54 wodq=064) BASOPHILS ABSOLUTE COUNT (BEAKER) (test 0.19 K/ L 0.01-0.08 ctfk=379) IMMATURE GRANULOCYTES-RELATIVE PERCENT (BEAKER) 1 % 0-1 (test ushj=6983) VANCOMYCIN LEVEL, [id number] 18:49:00 Test Item Value Reference Range Comments VANCOMYCIN RANDOM (BEAKER) (test kcol=491) 28.4 ug/mL Reference Range: No [id number] 06:09:00 Test Item Value Reference Range Comments PARTIAL THROMBOPLASTIN TIME (BEAKER) (test 98.8 seconds 22.5-36.0 prvb=489) [id number] 04:27:00 Test Item Value Reference Range Comments PARTIAL THROMBOPLASTIN TIME (BEAKER) (test > seconds 22.5-36.0 jrms=060) CBC W/PLT COUNT & AUTO [id number] 04:21:00 Test Item Value Reference Range Comments WHITE BLOOD CELL COUNT (BEAKER) (test egov=582) 8.8 K/ L 3.5-10.5 RED BLOOD CELL COUNT (BEAKER) (test svco=906) 3.12 M/ L 4.63-6.08 HEMOGLOBIN (BEAKER) (test wufa=052) 8.9 GM/DL 13.7-17.5 HEMATOCRIT (BEAKER) (test ubcr=881) 28.2 % 40.1-51.0 MEAN CORPUSCULAR VOLUME (BEAKER) (test tvsg=688) 90.4 fL 79.0-92.2 MEAN CORPUSCULAR HEMOGLOBIN (BEAKER) (test 28.5 pg 25.7-32.2 nqpo=257) MEAN CORPUSCULAR HEMOGLOBIN CONC (BEAKER) (test 31.6 GM/DL 32.3-36.5 majt=420) RED CELL DISTRIBUTION WIDTH (BEAKER) (test 13.5 % 11.6-14.4 xhzf=937) PLATELET COUNT (BEAKER) (test tyfz=861) 185 K/CU MM 150-450 MEAN PLATELET VOLUME (BEAKER) (test jrrr=174) 9.3 fL 9.4-12.4 NUCLEATED RED BLOOD CELLS (BEAKER) (test 0 /100 WBC 0-0 cthv=244) NEUTROPHILS RELATIVE PERCENT (BEAKER) (test 54 % auhe=642) LYMPHOCYTES RELATIVE PERCENT (BEAKER) (test 16 % heok=791) MONOCYTES RELATIVE PERCENT (BEAKER) (test 10 % lqrz=117) EOSINOPHILS RELATIVE PERCENT (BEAKER) (test 18 % pfwz=029) BASOPHILS RELATIVE PERCENT (BEAKER) (test 2 % auzj=262) NEUTROPHILS ABSOLUTE COUNT (BEAKER) (test 4.70 K/ L 1.78-5.38 omjs=288) LYMPHOCYTES ABSOLUTE COUNT (BEAKER) (test 1.41 K/ L 1.32-3.57 qgkk=531) MONOCYTES ABSOLUTE COUNT (BEAKER) (test 0.90 K/ L 0.30-0.82 pxdq=613) EOSINOPHILS ABSOLUTE COUNT (BEAKER) (test 1.58 K/ L 0.04-0.54 mkfp=969) BASOPHILS ABSOLUTE COUNT (BEAKER) (test 0.16 K/ L 0.01-0.08 ltdp=230) IMMATURE GRANULOCYTES-RELATIVE PERCENT (BEAKER) 0 % 0-1 (test upyd=6903) BASIC METABOLIC [id number] 03:38:00 Test Item Value Reference Range Comments SODIUM (BEAKER) (test 139 meq/L 136-145 edsj=587) POTASSIUM (BEAKER) (test 4.4 meq/L 3.5-5.1 cncc=469) CHLORIDE (BEAKER) (test 99 meq/L 98-107 afef=381) CO2 (BEAKER) (test 31 meq/L 22-29 kted=457) BLOOD UREA NITROGEN 21 mg/dL 7-21 (BEAKER) (test pibk=857) CREATININE (BEAKER) (test 1.22 mg/dL 0.57-1.25 jlto=750) GLUCOSE RANDOM (BEAKER) 97 mg/dL 70-105 (test vvjj=391) CALCIUM (BEAKER) (test 8.7 mg/dL 8.4-10.2 grsi=097) EGFR (BEAKER) (test 62 mL/min/1.73 sq m ESTIMATED GFR IS NOT hiij=2842) ACCURATE CREATININE CLEARANCE IN PREDICTING GLOMERULAR FILTRATION RATE. ESTIMATED GFR IS NOT APPLICABLE FOR DIALYSIS PATIENTS. PROTHROMBIN TIME/[id number] 03:38:00 Test Item Value Reference Range Comments PROTIME (BEAKER) (test jmcb=892) 20.7 seconds 11.9-14.2 INR (BEAKER) (test ckmg=463) 1.9 <=5.9 Effective 12/06/2018: PT Reference Range ChangeNew: 11.9-14.2 Previous: 11.7- 14.7RECOMMENDED COUMADIN/WARFARIN INR THERAPY RANGESSTANDARD DOSE: 2.0-3.0 Includes: PROPHYLAXIS for venous thrombosis, systemic embolization; TREATMENT for venous thrombosis and/or pulmonary embolus.HIGH RISK: Target INR is2.5-3.5 for patients wiht mechanical heart valves.6 hours after starting heparin infusion and as indicated per sliding scaleWithin 24 hours, if on CoumadinCT, BRAIN, WITHOUT [id number] 14:52:00FINAL REPORT CT , BRAIN, WITHOUT CONTRAST [...] recommended for further characterization. Signed: Nicole Gutierrez MDReport Verified Date/Time: 2018 14:52:09 Electronically signed by: NICOLE GUTIERREZ MD on 2018 02:52 [id number] 14:02:00 Test Item Value Reference Range Comments PARTIAL THROMBOPLASTIN TIME (BEAKER) (test 39.0 seconds 22.5-36.0 swdn=860) Prior to initiating heparinBASIC METABOLIC [id number] 07:26:00 Test Item Value Reference Range Comments SODIUM (BEAKER) (test 138 meq/L 136-145 xhrk=013) POTASSIUM (BEAKER) (test 4.7 meq/L 3.5-5.1 muad=425) CHLORIDE (BEAKER) (test 99 meq/L 98-107 tlrg=884) CO2 (BEAKER) (test 32 meq/L 22-29 saon=649) BLOOD UREA NITROGEN 19 mg/dL 7-21 (BEAKER) (test begw=538) CREATININE (BEAKER) (test 1.02 mg/dL 0.57-1.25 pghq=657) GLUCOSE RANDOM (BEAKER) 96 mg/dL 70-105 (test alwf=172) CALCIUM (BEAKER) (test 8.8 mg/dL 8.4-10.2 rupp=679) EGFR (BEAKER) (test 77 mL/min/1.73 sq m ESTIMATED GFR IS NOT chtf=1666) ACCURATE CREATININE CLEARANCE IN PREDICTING GLOMERULAR FILTRATION RATE. ESTIMATED GFR IS NOT APPLICABLE FOR DIALYSIS PATIENTS. CBC W/PLT COUNT & AUTO [id number] 07:03:00 Test Item Value Reference Range Comments WHITE BLOOD CELL COUNT (BEAKER) (test anab=844) 9.1 K/ L 3.5-10.5 RED BLOOD CELL COUNT (BEAKER) (test iujv=595) 2.95 M/ L 4.63-6.08 HEMOGLOBIN (BEAKER) (test hpky=175) 8.5 GM/DL 13.7-17.5 HEMATOCRIT (BEAKER) (test dvca=279) 26.3 % 40.1-51.0 MEAN CORPUSCULAR VOLUME (BEAKER) (test slol=555) 89.2 fL 79.0-92.2 MEAN CORPUSCULAR HEMOGLOBIN (BEAKER) (test 28.8 pg 25.7-32.2 yotm=640) MEAN CORPUSCULAR HEMOGLOBIN CONC (BEAKER) (test 32.3 GM/DL 32.3-36.5 mnkp=659) RED CELL DISTRIBUTION WIDTH (BEAKER) (test 13.7 % 11.6-14.4 pzep=424) PLATELET COUNT (BEAKER) (test rnio=803) 170 K/CU MM 150-450 MEAN PLATELET VOLUME (BEAKER) (test dhfc=425) 9.6 fL 9.4-12.4 NUCLEATED RED BLOOD CELLS (BEAKER) (test 0 /100 WBC 0-0 rhng=735) NEUTROPHILS RELATIVE PERCENT (BEAKER) (test 61 % raor=238) LYMPHOCYTES RELATIVE PERCENT (BEAKER) (test 12 % qdze=130) MONOCYTES RELATIVE PERCENT (BEAKER) (test 11 % oqdr=194) EOSINOPHILS RELATIVE PERCENT (BEAKER) (test 15 % usdi=427) BASOPHILS RELATIVE PERCENT (BEAKER) (test 2 % azdd=365) NEUTROPHILS ABSOLUTE COUNT (BEAKER) (test 5.51 K/ L 1.78-5.38 xwjz=509) LYMPHOCYTES ABSOLUTE COUNT (BEAKER) (test 1.06 K/ L 1.32-3.57 zkla=422) MONOCYTES ABSOLUTE COUNT (BEAKER) (test 0.99 K/ L 0.30-0.82 lsgi=181) EOSINOPHILS ABSOLUTE COUNT (BEAKER) (test 1.37 K/ L 0.04-0.54 hnhx=896) BASOPHILS ABSOLUTE COUNT (BEAKER) (test 0.14 K/ L 0.01-0.08 oseo=271) IMMATURE GRANULOCYTES-RELATIVE PERCENT (BEAKER) 0 % 0-1 (test owbf=8384) RAD, CHEST, 1 VIEW, NON [id number] 13:54:00Reason for exam:->SOB, Pulm edemaShould this be [...] MDReport Verified Date/Time: 06/18/2019 13:54:24 Reading Location: [facility] Radiology Reading Room BASI METABOLIC [id number] 05:34:00 Test Item Value Reference Range Comments SODIUM (BEAKER) (test 140 meq/L 136-145 autp=523) POTASSIUM (BEAKER) (test 3.7 meq/L 3.5-5.1 uaxm=706) CHLORIDE (BEAKER) (test 96 meq/L 98-107 zfqe=368) CO2 (BEAKER) (test 36 meq/L 22-29 gpzd=928) BLOOD UREA NITROGEN 16 mg/dL 7-21 (BEAKER) (test njxl=303) CREATININE (BEAKER) (test 1.13 mg/dL 0.57-1.25 prmh=418) GLUCOSE RANDOM (BEAKER) 100 mg/dL 70-105 (test bvrk=425) CALCIUM (BEAKER) (test 8.3 mg/dL 8.4-10.2 cvdq=924) EGFR (BEAKER) (test 68 mL/min/1.73 sq m ESTIMATED GFR IS NOT xtix=0845) ACCURATE CREATININE CLEARANCE IN PREDICTING GLOMERULAR FILTRATION RATE. ESTIMATED GFR IS NOT APPLICABLE FOR DIALYSIS PATIENTS. CBC W/PLT COUNT & AUTO [id number] 05:04:00 Test Item Value Reference Range Comments WHITE BLOOD CELL COUNT (BEAKER) (test orhh=432) 9.9 K/ L 3.5-10.5 RED BLOOD CELL COUNT (BEAKER) (test juul=758) 2.92 M/ L 4.63-6.08 HEMOGLOBIN (BEAKER) (test zubz=549) 8.5 GM/DL 13.7-17.5 HEMATOCRIT (BEAKER) (test ixhe=928) 26.1 % 40.1-51.0 MEAN CORPUSCULAR VOLUME (BEAKER) (test tdgj=871) 89.4 fL 79.0-92.2 MEAN CORPUSCULAR HEMOGLOBIN (BEAKER) (test 29.1 pg 25.7-32.2 ivaz=114) MEAN CORPUSCULAR HEMOGLOBIN CONC (BEAKER) (test 32.6 GM/DL 32.3-36.5 lpqo=922) RED CELL DISTRIBUTION WIDTH (BEAKER) (test 13.9 % 11.6-14.4 ityp=261) PLATELET COUNT (BEAKER) (test axjh=393) 162 K/CU MM 150-450 MEAN PLATELET VOLUME (BEAKER) (test itxi=616) 9.6 fL 9.4-12.4 NUCLEATED RED BLOOD CELLS (BEAKER) (test 0 /100 WBC 0-0 ntfx=031) NEUTROPHILS RELATIVE PERCENT (BEAKER) (test 64 % udzi=218) LYMPHOCYTES RELATIVE PERCENT (BEAKER) (test 11 % wpbn=094) MONOCYTES RELATIVE PERCENT (BEAKER) (test 11 % yrim=392) EOSINOPHILS RELATIVE PERCENT (BEAKER) (test 13 % bnem=574) BASOPHILS RELATIVE PERCENT (BEAKER) (test 1 % honr=620) NEUTROPHILS ABSOLUTE COUNT (BEAKER) (test 6.33 K/ L 1.78-5.38 eyyz=034) LYMPHOCYTES ABSOLUTE COUNT (BEAKER) (test 1.09 K/ L 1.32-3.57 mivy=496) MONOCYTES ABSOLUTE COUNT (BEAKER) (test 1.07 K/ L 0.30-0.82 tmjz=735) EOSINOPHILS ABSOLUTE COUNT (BEAKER) (test 1.26 K/ L 0.04-0.54 xfpp=920) BASOPHILS ABSOLUTE COUNT (BEAKER) (test 0.13 K/ L 0.01-0.08 rvdg=665) IMMATURE GRANULOCYTES-RELATIVE PERCENT (BEAKER) 0 % 0-1 (test smzl=7583) [id number] 09:14:00 Test Item Value Reference Range Comments MAGNESIUM (BEAKER) (test wuhr=482) 1.8 mg/dL 1.6-2.6 BASIC METABOLIC [id number] 06:19:00 Test Item Value Reference Range Comments SODIUM (BEAKER) (test 140 meq/L 136-145 pndj=323) POTASSIUM (BEAKER) (test 3.2 meq/L 3.5-5.1 tajr=146) CHLORIDE (BEAKER) (test 94 meq/L 98-107 mjmh=501) CO2 (BEAKER) (test 35 meq/L 22-29 rsss=415) BLOOD UREA NITROGEN 14 mg/dL 7-21 (BEAKER) (test hcdr=587) CREATININE (BEAKER) (test 1.16 mg/dL 0.57-1.25 qqdq=102) GLUCOSE RANDOM (BEAKER) 107 mg/dL 70-105 (test usbc=893) CALCIUM (BEAKER) (test 8.3 mg/dL 8.4-10.2 lgsi=621) EGFR (BEAKER) (test 66 mL/min/1.73 sq m ESTIMATED GFR IS NOT sfbm=8468) ACCURATE CREATININE CLEARANCE IN PREDICTING GLOMERULAR FILTRATION RATE. ESTIMATED GFR IS NOT APPLICABLE FOR DIALYSIS PATIENTS. Specimen slightly ictericCBC W/PLT COUNT & AUTO [id number] 04:59 :00 Test Item Value Reference Range Comments WHITE BLOOD CELL COUNT (BEAKER) (test qjdi=100) 9.7 K/ L 3.5-10.5 RED BLOOD CELL COUNT (BEAKER) (test hsju=927) 3.13 M/ L 4.63-6.08 HEMOGLOBIN (BEAKER) (test ithn=637) 9.0 GM/DL 13.7-17.5 HEMATOCRIT (BEAKER) (test dojo=062) 27.8 % 40.1-51.0 MEAN CORPUSCULAR VOLUME (BEAKER) (test vtdx=289) 88.8 fL 79.0-92.2 MEAN CORPUSCULAR HEMOGLOBIN (BEAKER) (test 28.8 pg 25.7-32.2 gfdb=552) MEAN CORPUSCULAR HEMOGLOBIN CONC (BEAKER) (test 32.4 GM/DL 32.3-36.5 vpuu=201) RED CELL DISTRIBUTION WIDTH (BEAKER) (test 14.2 % 11.6-14.4 ftrd=484) PLATELET COUNT (BEAKER) (test wsny=615) 156 K/CU MM 150-450 MEAN PLATELET VOLUME (BEAKER) (test fcqn=012) 9.4 fL 9.4-12.4 NUCLEATED RED BLOOD CELLS (BEAKER) (test 0 /100 WBC 0-0 wycq=918) NEUTROPHILS RELATIVE PERCENT (BEAKER) (test 66 % smce=503) LYMPHOCYTES RELATIVE PERCENT (BEAKER) (test 12 % hokg=308) MONOCYTES RELATIVE PERCENT (BEAKER) (test 12 % eduo=395) EOSINOPHILS RELATIVE PERCENT (BEAKER) (test 9 % adcy=934) BASOPHILS RELATIVE PERCENT (BEAKER) (test 1 % bzty=201) NEUTROPHILS ABSOLUTE COUNT (BEAKER) (test 6.36 K/ L 1.78-5.38 vmaw=457) LYMPHOCYTES ABSOLUTE COUNT (BEAKER) (test 1.20 K/ L 1.32-3.57 ihzs=368) MONOCYTES ABSOLUTE COUNT (BEAKER) (test 1.13 K/ L 0.30-0.82 aeet=369) EOSINOPHILS ABSOLUTE COUNT (BEAKER) (test 0.86 K/ L 0.04-0.54 nzpl=716) BASOPHILS ABSOLUTE COUNT (BEAKER) (test 0.12 K/ L 0.01-0.08 eavs=450) IMMATURE GRANULOCYTES-RELATIVE PERCENT (BEAKER) 0 % 0-1 (test vmiv=8808) BASIC METABOLIC [id number] 09:21:00 Test Item Value Reference Range Comments SODIUM (BEAKER) (test 138 meq/L 136-145 hcil=080) POTASSIUM (BEAKER) (test 3.5 meq/L 3.5-5.1 euhb=891) CHLORIDE (BEAKER) (test 101 meq/L 98-107 tuxn=007) CO2 (BEAKER) (test 33 meq/L 22-29 jqjn=500) BLOOD UREA NITROGEN 14 mg/dL 7-21 (BEAKER) (test gsrf=442) CREATININE (BEAKER) (test 1.07 mg/dL 0.57-1.25 fccq=681) GLUCOSE RANDOM (BEAKER) 96 mg/dL 70-105 (test eeff=192) CALCIUM (BEAKER) (test 7.9 mg/dL 8.4-10.2 dooz=379) EGFR (BEAKER) (test 73 mL/min/1.73 sq m ESTIMATED GFR IS NOT wkcy=4801) ACCURATE CREATININE CLEARANCE IN PREDICTING GLOMERULAR FILTRATION RATE. ESTIMATED GFR IS NOT APPLICABLE FOR DIALYSIS PATIENTS. RAD, CHEST, 1 VIEW, NON [id number] 07:08:00Reason for exam:-> dyspneaShould this be performed at the bedside?->YesFINAL REPORT RAD, CHEST, 1 VIEW, NON DEPT INDICATION: dyspnea COMPARISON: June 14, 2019 FINDINGS: Portable frontal view of the chest. IMPRESSION: Support Lines: Stable right PICC. Lungs and pleura: Worsening interstitial and alveolar edema. No pneumothorax.Heart and mediastinum: Stable contours. Additional findings: None. Signed: JR Phan Robert MDReport VerifiedDate/Time: 06/16/2019 07:08:13 Reading Location: [address] Neuro Reading Room CBC W/PLT COUNT & AUTO [id number] 06:42:00 Test Item Value Reference Range Comments WHITE BLOOD CELL COUNT (BEAKER) (test ypzh=408) 11.5 K/ L 3.5-10.5 RED BLOOD CELL COUNT (BEAKER) (test uztc=337) 2.94 M/ L 4.63-6.08 HEMOGLOBIN (BEAKER) (test pxru=894) 8.6 GM/DL 13.7-17.5 HEMATOCRIT (BEAKER) (test wgpl=033) 26.8 % 40.1-51.0 MEAN CORPUSCULAR VOLUME (BEAKER) (test glat=944) 91.2 fL 79.0-92.2 MEAN CORPUSCULAR HEMOGLOBIN (BEAKER) (test 29.3 pg 25.7-32.2 kcjc=335) MEAN CORPUSCULAR HEMOGLOBIN CONC (BEAKER) (test 32.1 GM/DL 32.3-36.5 puuf=849) RED CELL DISTRIBUTION WIDTH (BEAKER) (test 14.1 % 11.6-14.4 zrhq=908) PLATELET COUNT (BEAKER) (test oxhh=916) 136 K/CU MM 150-450 MEAN PLATELET VOLUME (BEAKER) (test tkoo=728) 10.0 fL 9.4-12.4 NUCLEATED RED BLOOD CELLS (BEAKER) (test 0 /100 WBC 0-0 jpoq=461) NEUTROPHILS RELATIVE PERCENT (BEAKER) (test 70 % auqn=662) LYMPHOCYTES RELATIVE PERCENT (BEAKER) (test 10 % adfv=241) MONOCYTES RELATIVE PERCENT (BEAKER) (test 11 % fqsq=520) EOSINOPHILS RELATIVE PERCENT (BEAKER) (test 7 % jsmg=218) BASOPHILS RELATIVE PERCENT (BEAKER) (test 1 % iapb=247) NEUTROPHILS ABSOLUTE COUNT (BEAKER) (test 8.11 K/ L 1.78-5.38 wopk=644) LYMPHOCYTES ABSOLUTE COUNT (BEAKER) (test 1.11 K/ L 1.32-3.57 lsmf=506) MONOCYTES ABSOLUTE COUNT (BEAKER) (test 1.32 K/ L 0.30-0.82 uamu=049) EOSINOPHILS ABSOLUTE COUNT (BEAKER) (test 0.83 K/ L 0.04-0.54 oifa=264) BASOPHILS ABSOLUTE COUNT (BEAKER) (test 0.11 K/ L 0.01-0.08 podc=517) IMMATURE GRANULOCYTES-RELATIVE PERCENT (BEAKER) 0 % 0-1 (test wsxg=0058) CT, [id number] 13:23:00FINAL REPORT CT abdomen and pelvis with [...] post cystoprostatectomy with neobladder creation. Signed: Adan Talleyort Verified Date/Time: 06/15/2019 13:23:41 Reading Location: [facility] Radiology Reading Room HEPATIC FUNCTION [id number] 07:25:00 Test Item Value Reference Range Comments TOTAL PROTEIN (BEAKER) (test aaax=770) 4.8 gm/dL 6.0-8.3 ALBUMIN (BEAKER) (test bdem=8901) 2.6 g/dL 3.5-5.0 BILIRUBIN TOTAL (BEAKER) (test kipx=977) 1.2 mg/dL 0.2-1.2 BILIRUBIN DIRECT (BEAKER) (test djgm=265) 0.6 mg/dL 0.1-0.5 ALKALINE PHOSPHATASE (BEAKER) (test peei=784) 95 U/L 40-150 AST (SGOT) (BEAKER) (test imbn=635) 18 U/L 5-34 ALT (SGPT) (BEAKER) (test ayva=903) 9 U/L 6-55 BASIC METABOLIC [id number] 07:25:00 Test Item Value Reference Range Comments SODIUM (BEAKER) (test 142 meq/L 136-145 vddp=995) POTASSIUM (BEAKER) (test 3.2 meq/L 3.5-5.1 jsky=015) CHLORIDE (BEAKER) (test 107 meq/L 98-107 mzlr=120) CO2 (BEAKER) (test 30 meq/L 22-29 luap=576) BLOOD UREA NITROGEN 13 mg/dL 7-21 (BEAKER) (test zwso=772) CREATININE (BEAKER) (test 0.91 mg/dL 0.57-1.25 vdux=155) GLUCOSE RANDOM (BEAKER) 98 mg/dL 70-105 (test ghqg=690) CALCIUM (BEAKER) (test 7.6 mg/dL 8.4-10.2 bgoq=882) EGFR (BEAKER) (test 87 mL/min/1.73 sq m ESTIMATED GFR IS NOT ctdp=9389) ACCURATE CREATININE CLEARANCE IN PREDICTING GLOMERULAR FILTRATION RATE. ESTIMATED GFR IS NOT APPLICABLE FOR DIALYSIS PATIENTS. TROPONIN [id number] 07:09:00 Test Item Value Reference Range Comments TROPONIN I (BEAKER) (test gnkt=224) 0.03 ng/mL 0.00-0.03 Troponin I (TnI) levels [...] and persistent tachyarrhythmia.CBC W/PLT COUNT & AUTO [id number] 07:06:00 Test Item Value Reference Range Comments WHITE BLOOD CELL COUNT (BEAKER) (test vaug=009) 9.5 K/ L 3.5-10.5 RED BLOOD CELL COUNT (BEAKER) (test kxaz=590) 2.84 M/ L 4.63-6.08 HEMOGLOBIN (BEAKER) (test brim=932) 8.4 GM/DL 13.7-17.5 HEMATOCRIT (BEAKER) (test yqbd=686) 25.7 % 40.1-51.0 MEAN CORPUSCULAR VOLUME (BEAKER) (test boxp=168) 90.5 fL 79.0-92.2 MEAN CORPUSCULAR HEMOGLOBIN (BEAKER) (test 29.6 pg 25.7-32.2 nlkg=493) MEAN CORPUSCULAR HEMOGLOBIN CONC (BEAKER) (test 32.7 GM/DL 32.3-36.5 wrtk=421) RED CELL DISTRIBUTION WIDTH (BEAKER) (test 14.2 % 11.6-14.4 erpi=907) PLATELET COUNT (BEAKER) (test rmqp=323) 119 K/CU MM 150-450 MEAN PLATELET VOLUME (BEAKER) (test vvza=389) 10.0 fL 9.4-12.4 NUCLEATED RED BLOOD CELLS (BEAKER) (test 0 /100 WBC 0-0 ryvt=828) NEUTROPHILS RELATIVE PERCENT (BEAKER) (test 67 % yfko=427) LYMPHOCYTES RELATIVE PERCENT (BEAKER) (test 12 % wych=860) MONOCYTES RELATIVE PERCENT (BEAKER) (test 11 % hfwo=206) EOSINOPHILS RELATIVE PERCENT (BEAKER) (test 9 % gxln=374) BASOPHILS RELATIVE PERCENT (BEAKER) (test 1 % lttc=973) NEUTROPHILS ABSOLUTE COUNT (BEAKER) (test 6.30 K/ L 1.78-5.38 mmsj=023) LYMPHOCYTES ABSOLUTE COUNT (BEAKER) (test 1.13 K/ L 1.32-3.57 pwzd=502) MONOCYTES ABSOLUTE COUNT (BEAKER) (test 1.08 K/ L 0.30-0.82 urbm=917) EOSINOPHILS ABSOLUTE COUNT (BEAKER) (test 0.83 K/ L 0.04-0.54 amck=415) BASOPHILS ABSOLUTE COUNT (BEAKER) (test 0.10 K/ L 0.01-0.08 xuog=698) IMMATURE GRANULOCYTES-RELATIVE PERCENT (BEAKER) 0 % 0-1 (test egqz=2820) TROPONIN [id number] 23:55:00 Test Item Value Reference Range Comments TROPONIN I (BEAKER) (test waha=768) 0.03 ng/mL 0.00-0.03 Troponin I (TnI) levels [...] failure, acidosis, acute neurological disease, and persistent tachyarrhythmia.[id number] 23:42:00 Test Item Value Reference Range Comments POTASSIUM (BEAKER) (test lzmx=630) 3.1 meq/L 3.5-5.1 POCT-LACTIC ACID, [id number] 19:09:00 Test Item Value Reference Range Comments POC-LACTIC ACID, VENOUS 1.0 mmol/L 0.9-1.7 TESTED AT [facility] [address] (BEAKER) (test fzmt=7430) [facility] [address] TROPONIN [id number] 14:51:00 Test Item Value Reference Range Comments TROPONIN I (BEAKER) (test npaf=425) 0.04 ng/mL 0.00-0.03 Troponin I (TnI) levels [...] failure, acidosis, acute neurological disease, and persistent tachyarrhythmia.[id number] 14:45:00 Test Item Value Reference Range Comments MAGNESIUM (BEAKER) (test xfor=018) 1.8 mg/dL 1.6-2.6 BASIC METABOLIC [id number] 14:45:00 Test Item Value Reference Range Comments SODIUM (BEAKER) (test 139 meq/L 136-145 ekpt=967) POTASSIUM (BEAKER) (test 2.8 meq/L 3.5-5.1 xwvu=756) CHLORIDE (BEAKER) (test 104 meq/L 98-107 ivbl=132) CO2 (BEAKER) (test 28 meq/L 22-29 ksnp=710) BLOOD UREA NITROGEN 12 mg/dL 7-21 (BEAKER) (test cvzz=761) CREATININE (BEAKER) (test 0.94 mg/dL 0.57-1.25 vazo=717) GLUCOSE RANDOM (BEAKER) 102 mg/dL 70-105 (test rzge=838) CALCIUM (BEAKER) (test 8.3 mg/dL 8.4-10.2 aaij=712) EGFR (BEAKER) (test 84 mL/min/1.73 sq m ESTIMATED GFR IS NOT kwzj=9396) ACCURATE CREATININE CLEARANCE IN PREDICTING GLOMERULAR FILTRATION RATE. ESTIMATED GFR IS NOT APPLICABLE FOR DIALYSIS PATIENTS. [id number] 14:39:00 Test Item Value Reference Range Comments PROTIME (BEAKER) (test mwgq=455) 22.5 seconds 11.9-14.2 INR (BEAKER) (test ydkn=792) 2.1 <=5.9 PARTIAL THROMBOPLASTIN TIME (BEAKER) (test 42.2 seconds 22.5-36.0 axit=982) Effective 12/06/2018: PT Reference Range ChangeNew: 11.9-14.2 Previous: 11.7- 14.7RECOMMENDED COUMADIN/WARFARIN INR THERAPY RANGESSTANDARD DOSE: 2.0-3.0 Includes: PROPHYLAXIS for venous thrombosis, systemic embolization; TREATMENT for venous thrombosis and/or pulmonary embolus.HIGH RISK: Target INR is2.5-3.5 for patients wiht mechanical heart valves.RAD, CHEST, 1 VIEW, NON [id number] 14:35:00Reason for exam:->CHEST PAINFINAL REPORT INDICATION: [...] Robert MDReport Verified Date/Time: 201814:35:41 Reading Location: [facility] Radiology Reading Room CBC W/ PLT COUNT & AUTO [id number] 14:34:00 Test Item Value Reference Range Comments WHITE BLOOD CELL COUNT (BEAKER) (test dsvx=589) 10.5 K/ L 3.5-10.5 RED BLOOD CELL COUNT (BEAKER) (test sjfl=463) 3.35 M/ L 4.63-6.08 HEMOGLOBIN (BEAKER) (test uqmn=887) 9.7 GM/DL 13.7-17.5 HEMATOCRIT (BEAKER) (test eucu=968) 30.3 % 40.1-51.0 MEAN CORPUSCULAR VOLUME (BEAKER) (test ntqt=658) 90.4 fL 79.0-92.2 MEAN CORPUSCULAR HEMOGLOBIN (BEAKER) (test 29.0 pg 25.7-32.2 ltjk=005) MEAN CORPUSCULAR HEMOGLOBIN CONC (BEAKER) (test 32.0 GM/DL 32.3-36.5 lpwe=206) RED CELL DISTRIBUTION WIDTH (BEAKER) (test 14.1 % 11.6-14.4 nljc=798) PLATELET COUNT (BEAKER) (test eohq=386) 125 K/CU MM 150-450 MEAN PLATELET VOLUME (BEAKER) (test qnun=429) 9.3 fL 9.4-12.4 NUCLEATED RED BLOOD CELLS (BEAKER) (test 0 /100 WBC 0-0 wiri=058) NEUTROPHILS RELATIVE PERCENT (BEAKER) (test 77 % seyy=300) LYMPHOCYTES RELATIVE PERCENT (BEAKER) (test 9 % khpb=215) MONOCYTES RELATIVE PERCENT (BEAKER) (test 9 % wjil=513) EOSINOPHILS RELATIVE PERCENT (BEAKER) (test 3 % xmsq=761) BASOPHILS RELATIVE PERCENT (BEAKER) (test 1 % sxhu=367) NEUTROPHILS ABSOLUTE COUNT (BEAKER) (test 8.05 K/ L 1.78-5.38 kjpv=604) LYMPHOCYTES ABSOLUTE COUNT (BEAKER) (test 0.97 K/ L 1.32-3.57 rcul=684) MONOCYTES ABSOLUTE COUNT (BEAKER) (test 0.95 K/ L 0.30-0.82 hxig=874) EOSINOPHILS ABSOLUTE COUNT (BEAKER) (test 0.36 K/ L 0.04-0.54 ruql=983) BASOPHILS ABSOLUTE COUNT (BEAKER) (test 0.13 K/ L 0.01-0.08 zuhh=601) IMMATURE GRANULOCYTES-RELATIVE PERCENT (BEAKER) 0 % 0-1 (test cciz=1902) STOOL CULTURE + SHIGA [id number] 09:17:00 Test Item Value Reference Range Comments CULTURE (BEAKER) (test No Salmonella, Shigella or ccgt=2612) Campylobacter isolated STOOL PATH [id number] 16:00:00 Test Item Value Reference Range Comments PATHOGEN EXAM CHARGED (BEAKER) (test tqfz=1189) Done URINALYSIS W/ REFLEX URINE [id number] 07:10:00 Test Item Value Reference Range Comments COLOR (BEAKER) (test rlbv=733) Light Yellow CLARITY (BEAKER) (test hfgp=263) Hazy SPECIFIC GRAVITY UA (BEAKER) (test zodb=903) 1.020 1.001-1.035 PH UA (BEAKER) (test ydhi=747) 5.5 5.0-8.0 PROTEIN UA (BEAKER) (test vuli=628) 50 mg/dL Negative GLUCOSE UA (BEAKER) (test xqou=578) Negative Negative KETONES UA (BEAKER) (test nvdb=254) Trace Negative BILIRUBIN UA (BEAKER) (test wfzl=615) Negative Negative BLOOD UA (BEAKER) (test ixla=292) Small Negative NITRITE UA (BEAKER) (test ayik=189) Negative Negative LEUKOCYTE ESTERASE UA (BEAKER) (test zkao=840) Negative Negative UROBILINOGEN UA (BEAKER) (test nzqy=007) 0.2 mg/dL 0.2-1.0 RBC UA (BEAKER) (test rqng=874) 46 /HPF WBC UA (BEAKER) (test mytk=605) 26 /HPF MUCUS (BEAKER) (test gtma=9212) Rare AMORPHOUS CRYSTALS (BEAKER) (test ylro=9419) Few SOURCE(BEAKER) (test rkjb=9445) CT, [id number] 02:56:00FINAL REPORT CLINICAL HISTORY: Abdominal pain, acute, [...] MDReport Verified Date/Time: 06/05/2019 02:56:29 VANCOMYCIN LEVEL, [id number] 18:39:00 Test Item Value Reference Range Comments VANCOMYCIN TROUGH (BEAKER) (test fspc=300) 9.9 ug/mL 10.0-20.0 Draw immediately prior to next vancomycin dose.HEMOGLOBIN AND [id number] 16:19:00 Test Item Value Reference Range Comments HEMOGLOBIN (BEAKER) (test srrt=669) 10.3 GM/DL 13.7-17.5 HEMATOCRIT (BEAKER) (test wzqn=587) 30.8 % 40.1-51.0 SHIGA TOXIN [id number] 15:20:00 Test Item Value Reference Range Comments SHIGA TOXIN 1 (BEAKER) (test hhnx=4055) Not detected Not detected SHIGA TOXIN 2 (BEAKER) (test idru=1785) Not detected Not detected BASIC METABOLIC [id number] 04:25:00 Test Item Value Reference Range Comments SODIUM (BEAKER) (test 140 meq/L 136-145 ujhk=039) POTASSIUM (BEAKER) (test 3.7 meq/L 3.5-5.1 nvuu=440) CHLORIDE (BEAKER) (test 111 meq/L 98-107 xynl=181) CO2 (BEAKER) (test 24 meq/L 22-29 qvkc=785) BLOOD UREA NITROGEN 14 mg/dL 7-21 (BEAKER) (test lirw=626) CREATININE (BEAKER) (test 0.98 mg/dL 0.57-1.25 uybi=773) GLUCOSE RANDOM (BEAKER) 98 mg/dL 70-105 (test ptor=384) CALCIUM (BEAKER) (test 8.0 mg/dL 8.4-10.2 tjlw=504) EGFR (BEAKER) (test 80 mL/min/1.73 sq m ESTIMATED GFR IS NOT emma=2679) ACCURATE CREATININE CLEARANCE IN PREDICTING GLOMERULAR FILTRATION RATE. ESTIMATED GFR IS NOT APPLICABLE FOR DIALYSIS PATIENTS. CBC (HEMOGRAM ONLY)2019-06-04 03:29:00 Test Item Value Reference Range Comments WHITE BLOOD CELL COUNT (BEAKER) (test fbpt=482) 5.8 K/ L 3.5-10.5 RED BLOOD CELL COUNT (BEAKER) (test hrqn=670) 3.40 M/ L 4.63-6.08 HEMOGLOBIN (BEAKER) (test yslq=254) 9.9 GM/DL 13.7-17.5 HEMATOCRIT (BEAKER) (test xrgx=500) 30.6 % 40.1-51.0 MEAN CORPUSCULAR VOLUME (BEAKER) (test pfue=496) 90.0 fL 79.0-92.2 MEAN CORPUSCULAR HEMOGLOBIN (BEAKER) (test 29.1 pg 25.7-32.2 msqm=092) MEAN CORPUSCULAR HEMOGLOBIN CONC (BEAKER) (test 32.4 GM/DL 32.3-36.5 dghz=856) RED CELL DISTRIBUTION WIDTH (BEAKER) (test 13.5 % 11.6-14.4 idup=908) PLATELET COUNT (BEAKER) (test mpwp=707) 90 K/CU MM 150-450 MEAN PLATELET VOLUME (BEAKER) (test vngr=885) 9.6 fL 9.4-12.4 NUCLEATED RED BLOOD CELLS (BEAKER) (test 0 /100 WBC 0-0 xxlh=932) URINALYSIS W/ REFLEX URINE [id number] 22:10:00 Test Item Value Reference Range Comments COLOR (BEAKER) (test pefc=383) Yellow CLARITY (BEAKER) (test icyf=838) Hazy SPECIFIC GRAVITY UA (BEAKER) (test ownd=221) 1.019 1.001-1.035 PH UA (BEAKER) (test kjgh=433) 6.5 5.0-8.0 PROTEIN UA (BEAKER) (test mxbo=114) 70 mg/dL Negative GLUCOSE UA (BEAKER) (test lndg=105) Negative Negative KETONES UA (BEAKER) (test lany=123) Negative Negative BILIRUBIN UA (BEAKER) (test iifx=065) Negative Negative BLOOD UA (BEAKER) (test knog=468) Moderate Negative NITRITE UA (BEAKER) (test jrke=811) Negative Negative LEUKOCYTE ESTERASE UA (BEAKER) (test ndge=861) Negative Negative UROBILINOGEN UA (BEAKER) (test sabb=182) 0.2 mg/dL 0.2-1.0 RBC UA (BEAKER) (test wels=052) 8 /HPF WBC UA (BEAKER) (test havp=312) 41 /HPF MUCUS (BEAKER) (test uuax=3603) Rare SQUAMOUS EPITHELIAL (BEAKER) (test gbaq=976) 1 /HPF HYALINE CASTS (BEAKER) (test auhn=102) 3 /LPF SOURCE(BEAKER) (test upjd=5240) C. DIFFICILE GDH [id number] 15:10:00 Test Item Value Reference Range Comments CDT TOXIN (test Positive Negative rkla=[id number]) CDT GDH ANTIGEN (test Positive Negative Confirms Clostridium mfrs=[id number]) difficile-associated infection.First line therapy - oral Vancomycin. Continue enteric isolation until 72 hours after treatment is discontinued and symptoms have resolved. Testing performed by [employer] Rapid Cassette Assay. For GDH, published sensitivity of the assay is 98.7% compared to cytotoxicity testing. For Toxin AB, published sensitivity is 87.8% and specificity 99.4% compared to cytotoxicity testing.Verification of kit performance was done by the [facility] Microbiology Lab prior to clinical use.CT, [id number] 14:48:00Reason for exam:->MELENAWhat is the patient's sedation [...] MDReport Verified Date/Time: 06/03/2019 14:48:20 Reading Location: [address] Body Reading Room TROPONIN [id number] 12:50:00 Test Item Value Reference Range Comments TROPONIN I (BEAKER) (test oqcd=885) 0.03 ng/mL 0.00-0.03 Troponin I (TnI) levels [...] acute neurological disease, and persistent tachyarrhythmia.HEPATIC FUNCTION [id number] 12:44: 00 Test Item Value Reference Range Comments TOTAL PROTEIN (BEAKER) (test smhs=877) 6.8 gm/dL 6.0-8.3 ALBUMIN (BEAKER) (test lzjc=8230) 4.0 g/dL 3.5-5.0 BILIRUBIN TOTAL (BEAKER) (test ovnf=258) 1.4 mg/dL 0.2-1.2 BILIRUBIN DIRECT (BEAKER) (test mgrh=643) 0.6 mg/dL 0.1-0.5 ALKALINE PHOSPHATASE (BEAKER) (test slgr=909) 139 U/L 40-150 AST (SGOT) (BEAKER) (test igeh=620) 27 U/L 5-34 ALT (SGPT) (BEAKER) (test ikrw=055) 21 U/L 6-55 [id number] 12:44:00 Test Item Value Reference Range Comments PHOSPHORUS (BEAKER) (test ghsm=644) 2.6 mg/dL 2.3-4.7 [id number] 12:44:00 Test Item Value Reference Range Comments MAGNESIUM (BEAKER) (test ntzt=459) 1.8 mg/dL 1.6-2.6 CREATINE KINASE (CK)2019-06-03 12:44:00 Test Item Value Reference Range Comments CREATINE KINASE TOTAL (BEAKER) (test tgvo=215) 40 U/L 29-200 [id number] 12:44:00 Test Item Value Reference Range Comments LIPASE (BEAKER) (test dvii=048) 24 U/L 8-78 B-TYPE NATRIURETIC FACTOR (BNP)2019-06-03 12:16:00 Test Item Value Reference Range Comments B-TYPE NATRIURETIC PEPTIDE (BEAKER) (test pkdt=785) 29 pg/mL 0-100 [id number] 11:54:00 Test Item Value Reference Range Comments PROTIME (BEAKER) (test pcog=833) 22.8 seconds 11.9-14.2 INR (BEAKER) (test kiuu=657) 2.1 <=5.9 PARTIAL THROMBOPLASTIN TIME (BEAKER) (test 34.9 seconds 22.5-36.0 mrmx=181) Effective 12/06/2018: PT Reference Range ChangeNew: 11.9-14.2 Previous: 11.7- 14.7RECOMMENDED COUMADIN/WARFARIN INR THERAPY RANGESSTANDARD DOSE: 2.0-3.0 Includes: PROPHYLAXIS for venous thrombosis, systemic embolization; TREATMENT for venous thrombosis and/or pulmonary embolus.HIGH RISK: Target INR is2.5-3.5 for patients wiht mechanical heart valves.BASIC METABOLIC [id number] 10:39: 00 Test Item Value Reference Range Comments SODIUM (BEAKER) (test 137 meq/L 136-145 szrx=920) POTASSIUM (BEAKER) (test 3.0 meq/L 3.5-5.1 fatc=437) CHLORIDE (BEAKER) (test 105 meq/L 98-107 fztw=227) CO2 (BEAKER) (test 23 meq/L 22-29 mpea=454) BLOOD UREA NITROGEN 17 mg/dL 7-21 (BEAKER) (test ijlj=409) CREATININE (BEAKER) (test 1.13 mg/dL 0.57-1.25 zijl=587) GLUCOSE RANDOM (BEAKER) 123 mg/dL 70-105 (test drbg=942) CALCIUM (BEAKER) (test 8.9 mg/dL 8.4-10.2 mwub=140) EGFR (BEAKER) (test 68 mL/min/1.73 sq m ESTIMATED GFR IS NOT pxty=6907) ACCURATE CREATININE CLEARANCE IN PREDICTING GLOMERULAR FILTRATION RATE. ESTIMATED GFR IS NOT APPLICABLE FOR DIALYSIS PATIENTS. CBC W/PLT COUNT & AUTO [id number] 10:27:00 Test Item Value Reference Range Comments WHITE BLOOD CELL COUNT (BEAKER) (test vsyj=523) 6.2 K/ L 3.5-10.5 RED BLOOD CELL COUNT (BEAKER) (test qzdg=347) 4.11 M/ L 4.63-6.08 HEMOGLOBIN (BEAKER) (test zncp=769) 12.2 GM/DL 13.7-17.5 HEMATOCRIT (BEAKER) (test myxx=669) 36.1 % 40.1-51.0 MEAN CORPUSCULAR VOLUME (BEAKER) (test ooyo=840) 87.8 fL 79.0-92.2 MEAN CORPUSCULAR HEMOGLOBIN (BEAKER) (test 29.7 pg 25.7-32.2 sxth=246) MEAN CORPUSCULAR HEMOGLOBIN CONC (BEAKER) (test 33.8 GM/DL 32.3-36.5 nabn=574) RED CELL DISTRIBUTION WIDTH (BEAKER) (test 13.5 % 11.6-14.4 pbry=478) PLATELET COUNT (BEAKER) (test zuuf=420) 109 K/CU MM 150-450 MEAN PLATELET VOLUME (BEAKER) (test szag=101) 9.6 fL 9.4-12.4 NUCLEATED RED BLOOD CELLS (BEAKER) (test 0 /100 WBC 0-0 mkdl=734) NEUTROPHILS RELATIVE PERCENT (BEAKER) (test 61 % kqhy=065) LYMPHOCYTES RELATIVE PERCENT (BEAKER) (test 17 % aclh=809) MONOCYTES RELATIVE PERCENT (BEAKER) (test 16 % hgyw=807) EOSINOPHILS RELATIVE PERCENT (BEAKER) (test 5 % jnne=538) BASOPHILS RELATIVE PERCENT (BEAKER) (test 2 % kjrk=999) NEUTROPHILS ABSOLUTE COUNT (BEAKER) (test 3.74 K/ L 1.78-5.38 noml=295) LYMPHOCYTES ABSOLUTE COUNT (BEAKER) (test 1.02 K/ L 1.32-3.57 gtro=609) MONOCYTES ABSOLUTE COUNT (BEAKER) (test 1.01 K/ L 0.30-0.82 lcit=577) EOSINOPHILS ABSOLUTE COUNT (BEAKER) (test 0.29 K/ L 0.04-0.54 tcvl=013) BASOPHILS ABSOLUTE COUNT (BEAKER) (test 0.09 K/ L 0.01-0.08 jdvu=774) IMMATURE GRANULOCYTES-RELATIVE PERCENT (BEAKER) 0 % 0-1 (test tdmo=7804) CT, CHEST, WITH IV [id number] 11:06:00FINAL REPORT CT of the chest, abdomen and pelvis, with contrast Clinical History: malignant neoplasm of urinary bladder, unspecified site Technique: CT of the chest, abdomen and pelvis is performed with intravenous contrast administration. This exam was performed according [facility] departmental dose optimization program which includes automated [...] HitchcockReport Verified Date/Time: 05/29/2019 11:06:29 Reading Location: [facility] C013X Ortho Consult Reading Room CT, [id number] 11:06: 00FINAL REPORT CT of the chest, [...] Hitchcock Verified Date/Time: 05/29/2019 11:06:29 Reading Location: [facility] C013X Ortho Consult Reading Room [id number] 08:02 :00 Test Item Value Reference Range Comments POC-CREATININE (BEAKER) 1.2 mg/dL 0.6-1.3 TESTED AT [facility] 7200 (test cazr=2721) [facility] [address] POC-EGFR (BEAKER) (test 64 mL/min/1.73M2 qdvy=0018) DOUBLE-STRANDED DNA (DSDNA) [id number] 13:36:00 Test Item Value Reference Range Comments ANTI-DNA DS (BEAKER) (test zfys=3500) Negative ANTI-NUCLEAR ANTIBODY (CONNIE)2019-05-21 10:45:00 Test Item Value Reference Range Comments ANTI-NUCLEAR ANTIBODY (CONNIE) (BEAKER) (test Positive Negative pzbs=807) Test performed by IFA method.CONNIE TITER AND [id number] 10:45:00 Test Item Value Reference Range Comments CONNIE TITER (BEAKER) (test mzez=8734) :640 CONNIE PATTERN (BEAKER) (test vriz=0609) Speckled BLOOD [id number] 07:01:00 Test Item Value Reference Range Comments CULTURE (BEAKER) (test ovor=9298) No growth in 5 days BLOOD [id number] 19:01:00 Test Item Value Reference Range Comments CULTURE (BEAKER) (test mftn=1208) No growth in 5 days BLOOD [id number] 19:01:00 Test Item Value Reference Range Comments CULTURE (BEAKER) (test qnib=1192) No growth in 5 days CATHETER TIP [id number] 08:39:00 Test Item Value Reference Range Comments CULTURE (BEAKER) (test rmwb=4505) No growth CBC W/PLT COUNT & AUTO [id number] 06:09:00 Test Item Value Reference Range Comments WHITE BLOOD CELL COUNT (BEAKER) (test mvkk=385) 4.7 K/ L 3.5-10.5 RED BLOOD CELL COUNT (BEAKER) (test vyjd=268) 3.59 M/ L 4.63-6.08 HEMOGLOBIN (BEAKER) (test qkmm=984) 10.6 GM/DL 13.7-17.5 HEMATOCRIT (BEAKER) (test eaya=169) 32.5 % 40.1-51.0 MEAN CORPUSCULAR VOLUME (BEAKER) (test iebr=965) 90.5 fL 79.0-92.2 MEAN CORPUSCULAR HEMOGLOBIN (BEAKER) (test 29.5 pg 25.7-32.2 awtn=291) MEAN CORPUSCULAR HEMOGLOBIN CONC (BEAKER) (test 32.6 GM/DL 32.3-36.5 kzin=282) RED CELL DISTRIBUTION WIDTH (BEAKER) (test 13.8 % 11.6-14.4 pmzn=477) PLATELET COUNT (BEAKER) (test fjsu=430) 87 K/CU MM 150-450 MEAN PLATELET VOLUME (BEAKER) (test tdhq=060) 10.5 fL 9.4-12.4 NUCLEATED RED BLOOD CELLS (BEAKER) (test 0 /100 WBC 0-0 bjqf=659) NEUTROPHILS RELATIVE PERCENT (BEAKER) (test 45 % rycr=490) LYMPHOCYTES RELATIVE PERCENT (BEAKER) (test 33 % iegz=419) MONOCYTES RELATIVE PERCENT (BEAKER) (test 13 % fdvt=579) EOSINOPHILS RELATIVE PERCENT (BEAKER) (test 7 % rlge=563) BASOPHILS RELATIVE PERCENT (BEAKER) (test 2 % wtaf=677) NEUTROPHILS ABSOLUTE COUNT (BEAKER) (test 2.10 K/ L 1.78-5.38 ijva=213) LYMPHOCYTES ABSOLUTE COUNT (BEAKER) (test 1.53 K/ L 1.32-3.57 liwv=497) MONOCYTES ABSOLUTE COUNT (BEAKER) (test piis=873) 0.62 K/ L 0.30-0.82 EOSINOPHILS ABSOLUTE COUNT (BEAKER) (test 0.33 K/ L 0.04-0.54 pshq=717) BASOPHILS ABSOLUTE COUNT (BEAKER) (test mcxi=885) 0.08 K/ L 0.01-0.08 IMMATURE GRANULOCYTES-RELATIVE PERCENT (BEAKER) 0 % 0-1 (test kynz=2150) RAD, CHEST, 1 VIEW, NON [id number] 17:11:00Reason for exam:->post picc line insertionShould this [...] PICC in adequate position. Signed: Dani Valles [facility] Centerort Verified Date/Time: 05/18/2019 17:11:42 Reading Location: [facility] Radiology Reading Room VANCOMYCIN LEVEL, [id number] 15:49:00 Test Item Value Reference Range Comments VANCOMYCIN TROUGH (BEAKER) (test xcpz=528) 33.9 ug/mL 10.0-20.0 Please draw 30 min prior to next doseRHEUMATOID FACTOR AB, REFLEX TO [id number] 11:01:00 Test Item Value Reference Range Comments RHEUMATOID FACTOR (BEAKER) (test fnew=124) Negative C-REACTIVE [id number] 06:25:00 Test Item Value Reference Range Comments C-REACTIVE PROTEIN (BEAKER) (test jtxy=374) 0.76 mg/dL 0.00-0.50 ANG, REMOVAL OF TUNNELED CVC [id number] 11:43:00Reason for exam:->port removal. TEJAS with suspected endocarditisFINAL REPORT Procedure: Right IJ port a cath removal. History: Catheter no longer needed. Career Resource Specialist: Lucia Ingram PAC. Dr. Ugarte was the supervising attending radiologist. Public Policy Coordinator: None. Modality: Fluoroscopy. DOSE REDUCTION: The examination [...] the care of your patient. Signed: Poli Ugarte MDReport Verified Date/Time: 05/17/2019 11:43:56 Reading Location: [place] [address] Angio Body Reading Room C-REACTIVE [id number] 06:37:00 Test Item Value Reference Range Comments C-REACTIVE PROTEIN (BEAKER) (test zcus=303) 0.78 mg/dL 0.00-0.50 BASIC METABOLIC [id number] 06:35:00 Test Item Value Reference Range Comments SODIUM (BEAKER) (test 142 meq/L 136-145 smsw=666) POTASSIUM (BEAKER) (test 4.0 meq/L 3.5-5.1 hthz=128) CHLORIDE (BEAKER) (test 107 meq/L 98-107 qnfk=494) CO2 (BEAKER) (test 30 meq/L 22-29 ofri=801) BLOOD UREA NITROGEN 20 mg/dL 7-21 (BEAKER) (test rndg=689) CREATININE (BEAKER) (test 1.03 mg/dL 0.57-1.25 avsi=074) GLUCOSE RANDOM (BEAKER) 90 mg/dL 70-105 (test guat=356) CALCIUM (BEAKER) (test 8.7 mg/dL 8.4-10.2 gdfi=636) EGFR (BEAKER) (test 76 mL/min/1.73 sq m ESTIMATED GFR IS NOT vavd=3330) ACCURATE CREATININE CLEARANCE IN PREDICTING GLOMERULAR FILTRATION RATE. ESTIMATED GFR IS NOT APPLICABLE FOR DIALYSIS PATIENTS. [id number] 06:19:00 Test Item Value Reference Range Comments PROCALCITONIN (BEAKER) (test qddh=2598) 0.07 ng/mL <0.05 SEPSIS RISK (ng/mL)Low: 0.05-0.50Intermediate: 0.51-2.00High: & gt;=2.01CBC W/PLT COUNT & AUTO [id number] 05:49:00 Test Item Value Reference Range Comments WHITE BLOOD CELL COUNT (BEAKER) (test ayfj=045) 5.8 K/ L 3.5-10.5 RED BLOOD CELL COUNT (BEAKER) (test hhtk=587) 3.63 M/ L 4.63-6.08 HEMOGLOBIN (BEAKER) (test ckdd=322) 10.7 GM/DL 13.7-17.5 HEMATOCRIT (BEAKER) (test nrld=895) 33.2 % 40.1-51.0 MEAN CORPUSCULAR VOLUME (BEAKER) (test ghne=642) 91.5 fL 79.0-92.2 MEAN CORPUSCULAR HEMOGLOBIN (BEAKER) (test 29.5 pg 25.7-32.2 snde=435) MEAN CORPUSCULAR HEMOGLOBIN CONC (BEAKER) (test 32.2 GM/DL 32.3-36.5 nzkn=253) RED CELL DISTRIBUTION WIDTH (BEAKER) (test 13.7 % 11.6-14.4 riix=524) PLATELET COUNT (BEAKER) (test cruk=508) 70 K/CU MM 150-450 MEAN PLATELET VOLUME (BEAKER) (test bynh=862) 10.1 fL 9.4-12.4 NUCLEATED RED BLOOD CELLS (BEAKER) (test 0 /100 WBC 0-0 tvyf=081) NEUTROPHILS RELATIVE PERCENT (BEAKER) (test 51 % doos=032) LYMPHOCYTES RELATIVE PERCENT (BEAKER) (test 31 % hdir=077) MONOCYTES RELATIVE PERCENT (BEAKER) (test 11 % xdnw=629) EOSINOPHILS RELATIVE PERCENT (BEAKER) (test 5 % sqps=117) BASOPHILS RELATIVE PERCENT (BEAKER) (test 1 % otyb=468) NEUTROPHILS ABSOLUTE COUNT (BEAKER) (test 2.96 K/ L 1.78-5.38 jrsp=991) LYMPHOCYTES ABSOLUTE COUNT (BEAKER) (test 1.78 K/ L 1.32-3.57 uicx=991) MONOCYTES ABSOLUTE COUNT (BEAKER) (test hcbx=643) 0.66 K/ L 0.30-0.82 EOSINOPHILS ABSOLUTE COUNT (BEAKER) (test 0.29 K/ L 0.04-0.54 jscx=553) BASOPHILS ABSOLUTE COUNT (BEAKER) (test ucll=699) 0.07 K/ L 0.01-0.08 IMMATURE GRANULOCYTES-RELATIVE PERCENT (BEAKER) 0 % 0-1 (test cbfs=4145) RAD, CHEST, 1 VIEW, NON [id number] 23:38:00Reason for exam:->retained line in subclavian?Should this be performed at the bedside?->YesFINAL REPORT AP chest dated 05/15/2019 Comment: Heart is normal in size. Port-A-Cath is present. Pulmonary vasculature is unremarkable. Lungs are clear. No pulmonary infiltrate orpleural effusion. Impression: No active cardiopulmonary disease. Signed: Kiara Katz Verified Date/Time: 05/15 23:38:58 Reading Location: [address] Reading Room [place], ANGIOGRAM , [id number] 06:38:00Reason for exam:->evaluate intermittent vision lossAnesthesia:->MACFINAL REPORT DATE OF PROCEDURE: SURGEON: Adina Khan M.D. CASE WORK AIDE: Camille Odom MD PREOPERATIVE DIAGNOSIS: vision loss [...] Verified Date/ Time: 05/15/2019 06:38:47 Reading Location: [facility] Y026 Neuro Angio Reading Room PROTHROMBIN TIME/[id number] 09:42:00 Test Item Value Reference Range Comments PROTIME (BEAKER) (test gjvs=152) 15.0 seconds 11.9-14.2 INR (BEAKER) (test nfui=106) 1.2 <=5.9 Effective 12/06/2018: PT Reference Range ChangeNew: 11.9-14.2 Previous: 11.7- 14.7RECOMMENDED COUMADIN/WARFARIN INR THERAPY RANGESSTANDARD DOSE: 2.0-3.0 Includes: PROPHYLAXIS for venous thrombosis, systemic embolization; TREATMENT for venous thrombosis and/or pulmonary embolus.HIGH RISK: Target INR is2.5-3.5 for patients wiht mechanical heart valves.[id number] 09:42:00 Test Item Value Reference Range Comments PARTIAL THROMBOPLASTIN TIME (BEAKER) (test 36.9 seconds 22.5-36.0 xqkb=016) BASIC METABOLIC [id number] 09:35:00 Test Item Value Reference Range Comments SODIUM (BEAKER) (test 142 meq/L 136-145 riyx=089) POTASSIUM (BEAKER) (test 3.3 meq/L 3.5-5.1 oenj=929) CHLORIDE (BEAKER) (test 104 meq/L 98-107 bwhl=999) CO2 (BEAKER) (test 28 meq/L 22-29 ctis=136) BLOOD UREA NITROGEN 17 mg/dL 7-21 (BEAKER) (test swtx=997) CREATININE (BEAKER) (test 1.07 mg/dL 0.57-1.25 gxoo=585) GLUCOSE RANDOM (BEAKER) 112 mg/dL 70-105 (test xllv=477) CALCIUM (BEAKER) (test 9.2 mg/dL 8.4-10.2 itqs=896) EGFR (BEAKER) (test 73 mL/min/1.73 sq m ESTIMATED GFR IS NOT qkez=6411) ACCURATE CREATININE CLEARANCE IN PREDICTING GLOMERULAR FILTRATION RATE. ESTIMATED GFR IS NOT APPLICABLE FOR DIALYSIS PATIENTS. CBC W/PLT COUNT & AUTO [id number] 09:25:00 Test Item Value Reference Range Comments WHITE BLOOD CELL COUNT (BEAKER) (test xock=766) 4.8 K/ L 3.5-10.5 RED BLOOD CELL COUNT (BEAKER) (test uqbx=987) 4.00 M/ L 4.63-6.08 HEMOGLOBIN (BEAKER) (test ijhz=569) 11.8 GM/DL 13.7-17.5 HEMATOCRIT (BEAKER) (test yguq=966) 36.9 % 40.1-51.0 MEAN CORPUSCULAR VOLUME (BEAKER) (test pfff=934) 92.3 fL 79.0-92.2 MEAN CORPUSCULAR HEMOGLOBIN (BEAKER) (test 29.5 pg 25.7-32.2 lgcy=326) MEAN CORPUSCULAR HEMOGLOBIN CONC (BEAKER) (test 32.0 GM/DL 32.3-36.5 okny=120) RED CELL DISTRIBUTION WIDTH (BEAKER) (test 13.8 % 11.6-14.4 vjtw=425) PLATELET COUNT (BEAKER) (test oikf=226) 107 K/CU MM 150-450 MEAN PLATELET VOLUME (BEAKER) (test atrw=415) 10.1 fL 9.4-12.4 NUCLEATED RED BLOOD CELLS (BEAKER) (test 0 /100 WBC 0-0 wedp=219) NEUTROPHILS RELATIVE PERCENT (BEAKER) (test 58 % vztb=598) LYMPHOCYTES RELATIVE PERCENT (BEAKER) (test 27 % xics=946) MONOCYTES RELATIVE PERCENT (BEAKER) (test 8 % jdrk=146) EOSINOPHILS RELATIVE PERCENT (BEAKER) (test 6 % jval=479) BASOPHILS RELATIVE PERCENT (BEAKER) (test 1 % nfgu=088) NEUTROPHILS ABSOLUTE COUNT (BEAKER) (test 2.83 K/ L 1.78-5.38 yfxv=896) LYMPHOCYTES ABSOLUTE COUNT (BEAKER) (test 1.29 K/ L 1.32-3.57 kqcz=112) MONOCYTES ABSOLUTE COUNT (BEAKER) (test 0.39 K/ L 0.30-0.82 xgft=415) EOSINOPHILS ABSOLUTE COUNT (BEAKER) (test 0.27 K/ L 0.04-0.54 ejvs=612) BASOPHILS ABSOLUTE COUNT (BEAKER) (test 0.05 K/ L 0.01-0.08 mpnj=828) IMMATURE GRANULOCYTES-RELATIVE PERCENT (BEAKER) 0 % 0-1 (test pmwy=6628) HEPATIC FUNCTION [id number] 07:46:00 Test Item Value Reference Range Comments TOTAL PROTEIN (BEAKER) (test nkau=238) 5.8 gm/dL 6.0-8.3 ALBUMIN (BEAKER) (test ypqo=3541) 3.3 g/dL 3.5-5.0 BILIRUBIN TOTAL (BEAKER) (test ebtk=471) 0.7 mg/dL 0.2-1.2 BILIRUBIN DIRECT (BEAKER) (test wlqj=705) 0.4 mg/dL 0.1-0.5 ALKALINE PHOSPHATASE (BEAKER) (test podr=831) 116 U/L 40-150 AST (SGOT) (BEAKER) (test hgkp=350) 32 U/L 5-34 ALT (SGPT) (BEAKER) (test xedt=606) 27 U/L 6-55 BASIC METABOLIC [id number] 07:46:00 Test Item Value Reference Range Comments SODIUM (BEAKER) (test 144 meq/L 136-145 dnjc=682) POTASSIUM (BEAKER) (test 3.6 meq/L 3.5-5.1 vlky=018) CHLORIDE (BEAKER) (test 112 meq/L 98-107 qdbn=161) CO2 (BEAKER) (test 26 meq/L 22-29 zkje=495) BLOOD UREA NITROGEN 18 mg/dL 7-21 (BEAKER) (test pijs=211) CREATININE (BEAKER) (test 1.00 mg/dL 0.57-1.25 koht=164) GLUCOSE RANDOM (BEAKER) 93 mg/dL 70-105 (test kglh=431) CALCIUM (BEAKER) (test 8.2 mg/dL 8.4-10.2 ibur=163) EGFR (BEAKER) (test 78 mL/min/1.73 sq m ESTIMATED GFR IS NOT nqig=5045) ACCURATE CREATININE CLEARANCE IN PREDICTING GLOMERULAR FILTRATION RATE. ESTIMATED GFR IS NOT APPLICABLE FOR DIALYSIS PATIENTS. CBC W/PLT COUNT & AUTO [id number] 07:01:00 Test Item Value Reference Range Comments WHITE BLOOD CELL COUNT (BEAKER) (test aste=296) 5.9 K/ L 3.5-10.5 RED BLOOD CELL COUNT (BEAKER) (test qpkg=410) 3.48 M/ L 4.63-6.08 HEMOGLOBIN (BEAKER) (test wiwq=342) 10.4 GM/DL 13.7-17.5 HEMATOCRIT (BEAKER) (test ykce=715) 32.8 % 40.1-51.0 MEAN CORPUSCULAR VOLUME (BEAKER) (test rdjc=611) 94.3 fL 79.0-92.2 MEAN CORPUSCULAR HEMOGLOBIN (BEAKER) (test 29.9 pg 25.7-32.2 fuuq=452) MEAN CORPUSCULAR HEMOGLOBIN CONC (BEAKER) (test 31.7 GM/DL 32.3-36.5 jsgl=354) RED CELL DISTRIBUTION WIDTH (BEAKER) (test 13.7 % 11.6-14.4 rntp=784) PLATELET COUNT (BEAKER) (test xzqc=153) 82 K/CU MM 150-450 MEAN PLATELET VOLUME (BEAKER) (test pkzk=786) 9.8 fL 9.4-12.4 NUCLEATED RED BLOOD CELLS (BEAKER) (test 0 /100 WBC 0-0 aifv=157) NEUTROPHILS RELATIVE PERCENT (BEAKER) (test 51 % ywjs=137) LYMPHOCYTES RELATIVE PERCENT (BEAKER) (test 33 % qvil=715) MONOCYTES RELATIVE PERCENT (BEAKER) (test 10 % hcqk=766) EOSINOPHILS RELATIVE PERCENT (BEAKER) (test 5 % nbhj=801) BASOPHILS RELATIVE PERCENT (BEAKER) (test 1 % laoy=830) NEUTROPHILS ABSOLUTE COUNT (BEAKER) (test 2.98 K/ L 1.78-5.38 labt=415) LYMPHOCYTES ABSOLUTE COUNT (BEAKER) (test 1.92 K/ L 1.32-3.57 lbpw=513) MONOCYTES ABSOLUTE COUNT (BEAKER) (test acmk=593) 0.61 K/ L 0.30-0.82 EOSINOPHILS ABSOLUTE COUNT (BEAKER) (test 0.28 K/ L 0.04-0.54 ejxv=576) BASOPHILS ABSOLUTE COUNT (BEAKER) (test ihsi=770) 0.07 K/ L 0.01-0.08 IMMATURE GRANULOCYTES-RELATIVE PERCENT (BEAKER) 0 % 0-1 (test anzc=7482) HEPATIC FUNCTION [id number] 05:39:00 Test Item Value Reference Range Comments TOTAL PROTEIN (BEAKER) (test prxc=373) 6.0 gm/dL 6.0-8.3 ALBUMIN (BEAKER) (test xwyx=7780) 3.5 g/dL 3.5-5.0 BILIRUBIN TOTAL (BEAKER) (test myjy=206) 1.0 mg/dL 0.2-1.2 BILIRUBIN DIRECT (BEAKER) (test wbzn=688) 0.5 mg/dL 0.1-0.5 ALKALINE PHOSPHATASE (BEAKER) (test pqtj=755) 125 U/L 40-150 AST (SGOT) (BEAKER) (test tinr=374) 31 U/L 5-34 ALT (SGPT) (BEAKER) (test uthm=636) 25 U/L 6-55 BASIC METABOLIC [id number] 05:39:00 Test Item Value Reference Range Comments SODIUM (BEAKER) (test 141 meq/L 136-145 xnpy=017) POTASSIUM (BEAKER) (test 3.5 meq/L 3.5-5.1 vnmd=615) CHLORIDE (BEAKER) (test 109 meq/L 98-107 smax=456) CO2 (BEAKER) (test 26 meq/L 22-29 qknx=578) BLOOD UREA NITROGEN 16 mg/dL 7-21 (BEAKER) (test xkka=381) CREATININE (BEAKER) (test 1.07 mg/dL 0.57-1.25 lyug=938) GLUCOSE RANDOM (BEAKER) 94 mg/dL 70-105 (test hgna=840) CALCIUM (BEAKER) (test 8.4 mg/dL 8.4-10.2 xrpb=379) EGFR (BEAKER) (test 73 mL/min/1.73 sq m ESTIMATED GFR IS NOT ctzd=9283) ACCURATE CREATININE CLEARANCE IN PREDICTING GLOMERULAR FILTRATION RATE. ESTIMATED GFR IS NOT APPLICABLE FOR DIALYSIS PATIENTS. CBC W/PLT COUNT & AUTO [id number] 05:19:00 Test Item Value Reference Range Comments WHITE BLOOD CELL COUNT (BEAKER) (test ijoh=267) 6.5 K/ L 3.5-10.5 RED BLOOD CELL COUNT (BEAKER) (test qkvg=207) 3.63 M/ L 4.63-6.08 HEMOGLOBIN (BEAKER) (test yaeb=150) 10.8 GM/DL 13.7-17.5 HEMATOCRIT (BEAKER) (test lkpm=121) 33.4 % 40.1-51.0 MEAN CORPUSCULAR VOLUME (BEAKER) (test zaoo=361) 92.0 fL 79.0-92.2 MEAN CORPUSCULAR HEMOGLOBIN (BEAKER) (test 29.8 pg 25.7-32.2 yeic=305) MEAN CORPUSCULAR HEMOGLOBIN CONC (BEAKER) (test 32.3 GM/DL 32.3-36.5 iooq=444) RED CELL DISTRIBUTION WIDTH (BEAKER) (test 13.5 % 11.6-14.4 lamq=046) PLATELET COUNT (BEAKER) (test mhbx=354) 104 K/CU MM 150-450 MEAN PLATELET VOLUME (BEAKER) (test uqgz=471) 10.0 fL 9.4-12.4 NUCLEATED RED BLOOD CELLS (BEAKER) (test 0 /100 WBC 0-0 vdrm=325) NEUTROPHILS RELATIVE PERCENT (BEAKER) (test 54 % cqrw=157) LYMPHOCYTES RELATIVE PERCENT (BEAKER) (test 28 % zdlv=688) MONOCYTES RELATIVE PERCENT (BEAKER) (test 12 % qbaj=342) EOSINOPHILS RELATIVE PERCENT (BEAKER) (test 5 % nwxb=387) BASOPHILS RELATIVE PERCENT (BEAKER) (test 1 % rwkr=559) NEUTROPHILS ABSOLUTE COUNT (BEAKER) (test 3.50 K/ L 1.78-5.38 qpjs=683) LYMPHOCYTES ABSOLUTE COUNT (BEAKER) (test 1.79 K/ L 1.32-3.57 hvug=022) MONOCYTES ABSOLUTE COUNT (BEAKER) (test 0.76 K/ L 0.30-0.82 ldvj=330) EOSINOPHILS ABSOLUTE COUNT (BEAKER) (test 0.35 K/ L 0.04-0.54 ctyq=730) BASOPHILS ABSOLUTE COUNT (BEAKER) (test 0.08 K/ L 0.01-0.08 zsar=221) IMMATURE GRANULOCYTES-RELATIVE PERCENT (BEAKER) 0 % 0-1 (test nsiv=4200) [id number] 13:38:00 Test Item Value Reference Range Comments RPR SCREEN (BEAKER) (test hwwy=434) Nonreactive Nonreactive HEMOGLOBIN [id number] 08:39:00 Test Item Value Reference Range Comments HEMOGLOBIN A1C (BEAKER) (test hvsu=992) 5.2 % 4.3-6.1 [id number] 06:23:00 Test Item Value Reference Range Comments THYROID STIMULATING HORMONE (BEAKER) (test 2.45 uIU/mL 0.35-4.94 tqfm=902) VITAMIN B12 AND [id number] 06:23:00 Test Item Value Reference Range Comments VITAMIN B12 (BEAKER) (test logz=201) 466 pg/mL 213-816 FOLATE (BEAKER) (test nbeg=991) 9.5 ng/mL >=7.0 C-REACTIVE [id number] 06:23:00 Test Item Value Reference Range Comments C-REACTIVE PROTEIN (BEAKER) (test xavw=136) 0.42 mg/dL 0.00-0.50 LIPID [id number] 05:49:00 Test Item Value Reference Range Comments TRIGLYCERIDES (BEAKER) (test sdbl=809) 91 mg/dL CHOLESTEROL (BEAKER) (test zxug=205) 111 mg/dL HDL CHOLESTEROL (BEAKER) (test wxhr=025) 45 mg/dL LDL CHOLESTEROL CALCULATED (BEAKER) (test 48 mg/dL yguv=779) Triglyceride Reference Range: Low Risk <150 Borderline 150- 199 High Risk 200-499 Very High Risk >=500Cholesterol Reference Range: Low Risk <200 Borderline 200-239 High Risk > 240HDL Cholesterol Reference Range: Low Risk >=60 High Risk <40LDL Cholesterol Reference Range: Optimal <100 Near Optimal 100-129 Borderline 130-159 High 160-189 Very High >=190BASIC METABOLIC [id number] 05:49:00 Test Item Value Reference Range Comments SODIUM (BEAKER) (test 142 meq/L 136-145 gtbr=791) POTASSIUM (BEAKER) (test 3.6 meq/L 3.5-5.1 pnti=193) CHLORIDE (BEAKER) (test 109 meq/L 98-107 ilyu=036) CO2 (BEAKER) (test 27 meq/L 22-29 akmk=438) BLOOD UREA NITROGEN 17 mg/dL 7-21 (BEAKER) (test pqtl=179) CREATININE (BEAKER) (test 1.08 mg/dL 0.57-1.25 wott=823) GLUCOSE RANDOM (BEAKER) 98 mg/dL 70-105 (test mmfa=162) CALCIUM (BEAKER) (test 8.5 mg/dL 8.4-10.2 ekkd=151) EGFR (BEAKER) (test 72 mL/min/1.73 sq m ESTIMATED GFR IS NOT hllv=4768) ACCURATE CREATININE CLEARANCE IN PREDICTING GLOMERULAR FILTRATION RATE. ESTIMATED GFR IS NOT APPLICABLE FOR DIALYSIS PATIENTS. HEPATIC FUNCTION [id number] 05:49:00 Test Item Value Reference Range Comments TOTAL PROTEIN (BEAKER) (test goei=279) 6.1 gm/dL 6.0-8.3 ALBUMIN (BEAKER) (test ldtz=6100) 3.5 g/dL 3.5-5.0 BILIRUBIN TOTAL (BEAKER) (test haeg=262) 0.6 mg/dL 0.2-1.2 BILIRUBIN DIRECT (BEAKER) (test gjtt=297) 0.3 mg/dL 0.1-0.5 ALKALINE PHOSPHATASE (BEAKER) (test mhlz=430) 135 U/L 40-150 AST (SGOT) (BEAKER) (test qizx=121) 34 U/L 5-34 ALT (SGPT) (BEAKER) (test pgfe=694) 30 U/L 6-55 CBC W/PLT COUNT & AUTO [id number] 05:27:00 Test Item Value Reference Range Comments WHITE BLOOD CELL COUNT (BEAKER) (test qkvv=618) 6.1 K/ L 3.5-10.5 RED BLOOD CELL COUNT (BEAKER) (test gdhy=067) 3.62 M/ L 4.63-6.08 HEMOGLOBIN (BEAKER) (test fvgj=570) 10.7 GM/DL 13.7-17.5 HEMATOCRIT (BEAKER) (test nsys=029) 33.9 % 40.1-51.0 MEAN CORPUSCULAR VOLUME (BEAKER) (test xqwp=886) 93.6 fL 79.0-92.2 MEAN CORPUSCULAR HEMOGLOBIN (BEAKER) (test 29.6 pg 25.7-32.2 zcro=373) MEAN CORPUSCULAR HEMOGLOBIN CONC (BEAKER) (test 31.6 GM/DL 32.3-36.5 cywd=984) RED CELL DISTRIBUTION WIDTH (BEAKER) (test 13.5 % 11.6-14.4 kjll=614) PLATELET COUNT (BEAKER) (test adco=467) 111 K/CU MM 150-450 MEAN PLATELET VOLUME (BEAKER) (test hvau=284) 9.8 fL 9.4-12.4 NUCLEATED RED BLOOD CELLS (BEAKER) (test 0 /100 WBC 0-0 svmt=756) NEUTROPHILS RELATIVE PERCENT (BEAKER) (test 53 % oflw=109) LYMPHOCYTES RELATIVE PERCENT (BEAKER) (test 30 % dena=975) MONOCYTES RELATIVE PERCENT (BEAKER) (test 11 % gdvz=815) EOSINOPHILS RELATIVE PERCENT (BEAKER) (test 5 % hqff=166) BASOPHILS RELATIVE PERCENT (BEAKER) (test 1 % tfvb=585) NEUTROPHILS ABSOLUTE COUNT (BEAKER) (test 3.26 K/ L 1.78-5.38 wddg=246) LYMPHOCYTES ABSOLUTE COUNT (BEAKER) (test 1.80 K/ L 1.32-3.57 ysjc=155) MONOCYTES ABSOLUTE COUNT (BEAKER) (test 0.65 K/ L 0.30-0.82 yjob=163) EOSINOPHILS ABSOLUTE COUNT (BEAKER) (test 0.30 K/ L 0.04-0.54 ihgl=532) BASOPHILS ABSOLUTE COUNT (BEAKER) (test 0.06 K/ L 0.01-0.08 eadt=305) IMMATURE GRANULOCYTES-RELATIVE PERCENT (BEAKER) 1 % 0-1 (test sren=3426) CT, CAROTID, [id number] 02:56:00FINAL REPORT CLINICAL HISTORY: Neuro deficit, acute, [...] are patent. The vessels beyond the proximal [place] segments are not well seen [...] by NASCET criteria. Signed: Patricia Del Valle MDR[facility]. [facility] Verified Date/Time: 05/09/2019 02:56:41 . [facility], [facility] [id number] 02:56:00FINAL REPORT CLINICAL HISTORY: Neuro deficit, acute, [...] are patent. The vessels beyond the proximal [place] segments are not well seen [...] by NASCET criteria. Signed: Patricia Del Valle Verified Date/Time: 05/09/2019 02:56:41 MR, BRAIN, WITHOUT [id number] 02:31:00FINAL REPORT MRI Brain without contrast Clinical History: Neuro deficit, acute, stroke suspected Technique: MRI of the brain utilizing axial T2, FLAIR, GRE, DWI ; sagittal and coronal T1-weighted images. Comparisons: MRI brain dated 2018. Findings: There is no evidence of acute infarct or hemorrhage. Interval evolution of previously seen acute infarction involving the right basal ganglia , right MCA territory and left MATERIALS CLERK territory. Remote bilateral small cerebellar hemisphere infarction. [...] right basalganglia, right MCA territory and left MATERIALS CLERK territory. Infiltrative FLAIR/T2 hyperintense signal within the [...] Date/Time: 05/09/2019 02:31:29 URINALYSIS W/ REFLEX URINE [id number] 21:42:00 Test Item Value Reference Range Comments COLOR (BEAKER) (test fgvo=842) Yellow CLARITY (BEAKER) (test jwax=214) Hazy SPECIFIC GRAVITY UA (BEAKER) (test hyta=356) 1.011 1.001-1.035 PH UA (BEAKER) (test txfg=830) 6.0 5.0-8.0 PROTEIN UA (BEAKER) (test zyyf=898) 20 mg/dL Negative GLUCOSE UA (BEAKER) (test bsjv=958) Negative Negative KETONES UA (BEAKER) (test eyrb=356) Negative Negative BILIRUBIN UA (BEAKER) (test nclx=344) Negative Negative BLOOD UA (BEAKER) (test vkpq=955) Trace Negative NITRITE UA (BEAKER) (test tane=588) Negative Negative LEUKOCYTE ESTERASE UA (BEAKER) (test ndef=829) Moderate Negative UROBILINOGEN UA (BEAKER) (test xwbn=738) 0.2 mg/dL 0.2-1.0 RBC UA (BEAKER) (test otdf=983) 5 /HPF WBC UA (BEAKER) (test zcvv=028) 56 /HPF SQUAMOUS EPITHELIAL (BEAKER) (test ckvt=784) 2 /HPF SOURCE(BEAKER) (test rfhr=6347) B-TYPE NATRIURETIC FACTOR (BNP)2019-05-08 19:04:00 Test Item Value Reference Range Comments B-TYPE NATRIURETIC PEPTIDE (BEAKER) (test ujdh=161) 77 pg/mL 0-100 TROPONIN [id number] 19:04:00 Test Item Value Reference Range Comments TROPONIN I (BEAKER) (test dthy=822) < ng/mL 0.00-0.03 Troponin I (TnI) levels [...] failure, acidosis, acute neurological disease, and persistent tachyarrhythmia.PT/[id number] 19:00:00 Test Item Value Reference Range Comments PROTIME (BEAKER) (test ovdp=168) 18.0 seconds 11.9-14.2 INR (BEAKER) (test nebc=499) 1.6 <=5.9 PARTIAL THROMBOPLASTIN TIME (BEAKER) (test 30.2 seconds 22.5-36.0 rbqg=818) Effective 12/06/2018: PT Reference Range ChangeNew: 11.9-14.2 Previous: 11.7- 14.7RECOMMENDED COUMADIN/WARFARIN INR THERAPY RANGESSTANDARD DOSE: 2.0-3.0 Includes: PROPHYLAXIS for venous thrombosis, systemic embolization; TREATMENT for venous thrombosis and/or pulmonary embolus.HIGH RISK: Target INR is2.5-3.5 for patients wiht mechanical heart valves.[id number] 18:58:00 Test Item Value Reference Range Comments MAGNESIUM (BEAKER) (test 2.1 mg/dL 1.6-2.6 Specimen slightly hemolyzed vdnf=833) [id number] 18:58:00 Test Item Value Reference Range Comments PHOSPHORUS (BEAKER) (test 3.4 mg/dL 2.3-4.7 Specimen slightly hemolyzed ttrx=786) BASIC METABOLIC [id number] 18:58:00 Test Item Value Reference Range Comments SODIUM (BEAKER) (test 142 meq/L 136-145 yokg=439) POTASSIUM (BEAKER) (test 3.7 meq/L 3.5-5.1 Specimen slightly afdm=396) hemolyzed CHLORIDE (BEAKER) (test 107 meq/L 98-107 cofl=618) CO2 (BEAKER) (test 29 meq/L 22-29 jumn=461) BLOOD UREA NITROGEN 18 mg/dL 7-21 (BEAKER) (test urbu=793) CREATININE (BEAKER) (test 1.14 mg/dL 0.57-1.25 Specimen slightly yazd=334) hemolyzed GLUCOSE RANDOM (BEAKER) 102 mg/dL 70-105 (test wdgg=674) CALCIUM (BEAKER) (test 8.8 mg/dL 8.4-10.2 tejk=527) EGFR (BEAKER) (test 67 mL/min/1.73 sq m ESTIMATED GFR IS NOT eqgi=2118) ACCURATE CREATININE CLEARANCE IN PREDICTING GLOMERULAR FILTRATION RATE. ESTIMATED GFR IS NOT APPLICABLE FOR DIALYSIS PATIENTS. CREATINE KINASE (CK)2019-05-08 18:58:00 Test Item Value Reference Range Comments CREATINE KINASE TOTAL (BEAKER) (test uckj=830) 63 U/L 29-200 CT, BRAIN, WITHOUT [id number] 18:57:00Reason for exam:->EYE PROBLEMWhat is the patient's [...] 05/08/2019 18:57:38 CBC W/PLT COUNT & AUTO [id number] 18:41:00 Test Item Value Reference Range Comments WHITE BLOOD CELL COUNT (BEAKER) (test jcga=850) 7.3 K/ L 3.5-10.5 RED BLOOD CELL COUNT (BEAKER) (test cjpu=977) 3.89 M/ L 4.63-6.08 HEMOGLOBIN (BEAKER) (test vnnl=974) 11.6 GM/DL 13.7-17.5 HEMATOCRIT (BEAKER) (test izwg=752) 36.1 % 40.1-51.0 MEAN CORPUSCULAR VOLUME (BEAKER) (test fzcs=878) 92.8 fL 79.0-92.2 MEAN CORPUSCULAR HEMOGLOBIN (BEAKER) (test 29.8 pg 25.7-32.2 ywlm=634) MEAN CORPUSCULAR HEMOGLOBIN CONC (BEAKER) (test 32.1 GM/DL 32.3-36.5 xxvi=016) RED CELL DISTRIBUTION WIDTH (BEAKER) (test 13.5 % 11.6-14.4 kfwx=027) PLATELET COUNT (BEAKER) (test hssw=112) 125 K/CU MM 150-450 MEAN PLATELET VOLUME (BEAKER) (test sjkj=708) 10.0 fL 9.4-12.4 NUCLEATED RED BLOOD CELLS (BEAKER) (test 0 /100 WBC 0-0 nepe=372) NEUTROPHILS RELATIVE PERCENT (BEAKER) (test 59 % xfvs=008) LYMPHOCYTES RELATIVE PERCENT (BEAKER) (test 27 % scet=259) MONOCYTES RELATIVE PERCENT (BEAKER) (test 9 % ujcu=453) EOSINOPHILS RELATIVE PERCENT (BEAKER) (test 4 % gknf=881) BASOPHILS RELATIVE PERCENT (BEAKER) (test 1 % ckik=739) NEUTROPHILS ABSOLUTE COUNT (BEAKER) (test 4.28 K/ L 1.78-5.38 pcgf=356) LYMPHOCYTES ABSOLUTE COUNT (BEAKER) (test 1.94 K/ L 1.32-3.57 utli=716) MONOCYTES ABSOLUTE COUNT (BEAKER) (test 0.67 K/ L 0.30-0.82 izzo=574) EOSINOPHILS ABSOLUTE COUNT (BEAKER) (test 0.29 K/ L 0.04-0.54 yqib=299) BASOPHILS ABSOLUTE COUNT (BEAKER) (test 0.09 K/ L 0.01-0.08 fkzs=843) IMMATURE GRANULOCYTES-RELATIVE PERCENT (BEAKER) 0 % 0-1 (test kxnt=8562) [id number] 06:29:00 Test Item Value Reference Range Comments POTASSIUM (BEAKER) (test 3.8 meq/L 3.5-5.1 Specimen slightly hemolyzed httj=797) BASIC METABOLIC [id number] 06:24:00 Test Item Value Reference Range Comments SODIUM (BEAKER) (test 140 meq/L 136-145 nhmh=815) POTASSIUM (BEAKER) (test 3.4 meq/L 3.5-5.1 jjok=348) CHLORIDE (BEAKER) (test 105 meq/L 98-107 vaij=451) CO2 (BEAKER) (test 26 meq/L 22-29 xrad=689) BLOOD UREA NITROGEN 21 mg/dL 7-21 (BEAKER) (test wvgy=626) CREATININE (BEAKER) (test 1.23 mg/dL 0.57-1.25 qfiw=355) GLUCOSE RANDOM (BEAKER) 93 mg/dL 70-105 (test jypv=254) CALCIUM (BEAKER) (test 9.2 mg/dL 8.4-10.2 katw=072) EGFR (BEAKER) (test 62 mL/min/1.73 sq m ESTIMATED GFR IS NOT kxah=2566) ACCURATE CREATININE CLEARANCE IN PREDICTING GLOMERULAR FILTRATION RATE. ESTIMATED GFR IS NOT APPLICABLE FOR DIALYSIS PATIENTS. CBC W/PLT COUNT & AUTO [id number] 05:59:00 Test Item Value Reference Range Comments WHITE BLOOD CELL COUNT (BEAKER) (test nghv=345) 7.3 K/ L 3.5-10.5 RED BLOOD CELL COUNT (BEAKER) (test uxoy=801) 4.13 M/ L 4.63-6.08 HEMOGLOBIN (BEAKER) (test shgp=015) 12.7 GM/DL 13.7-17.5 HEMATOCRIT (BEAKER) (test lwou=286) 36.7 % 40.1-51.0 MEAN CORPUSCULAR VOLUME (BEAKER) (test xxhe=116) 88.9 fL 79.0-92.2 MEAN CORPUSCULAR HEMOGLOBIN (BEAKER) (test 30.8 pg 25.7-32.2 hiiv=718) MEAN CORPUSCULAR HEMOGLOBIN CONC (BEAKER) (test 34.6 GM/DL 32.3-36.5 ycpz=831) RED CELL DISTRIBUTION WIDTH (BEAKER) (test 13.3 % 11.6-14.4 glya=305) PLATELET COUNT (BEAKER) (test pvem=265) 195 K/CU MM 150-450 MEAN PLATELET VOLUME (BEAKER) (test gkhe=376) 9.6 fL 9.4-12.4 NEUTROPHILS RELATIVE PERCENT (BEAKER) (test 54 % wbkt=725) LYMPHOCYTES RELATIVE PERCENT (BEAKER) (test 27 % ijmf=915) MONOCYTES RELATIVE PERCENT (BEAKER) (test 13 % kwee=697) EOSINOPHILS RELATIVE PERCENT (BEAKER) (test 6 % dgtf=060) BASOPHILS RELATIVE PERCENT (BEAKER) (test 1 % vnhz=042) NEUTROPHILS ABSOLUTE COUNT (BEAKER) (test 3.93 K/ L 1.78-5.38 gedx=622) LYMPHOCYTES ABSOLUTE COUNT (BEAKER) (test 1.94 K/ L 1.32-3.57 yxzc=580) MONOCYTES ABSOLUTE COUNT (BEAKER) (test 0.91 K/ L 0.30-0.82 sgnj=680) EOSINOPHILS ABSOLUTE COUNT (BEAKER) (test 0.41 K/ L 0.04-0.54 ultx=031) BASOPHILS ABSOLUTE COUNT (BEAKER) (test 0.08 K/ L 0.01-0.08 hitb=010) IMMATURE GRANULOCYTES-RELATIVE PERCENT (BEAKER) 0 % 0-1 (test irrk=1427) BASIC METABOLIC [id number] 06:02:00 Test Item Value Reference Range Comments SODIUM (BEAKER) (test 140 meq/L 136-145 govz=736) POTASSIUM (BEAKER) (test 3.8 meq/L 3.5-5.1 Specimen slightly xvhz=722) hemolyzed CHLORIDE (BEAKER) (test 102 meq/L 98-107 ugnt=243) CO2 (BEAKER) (test 28 meq/L 22-29 nspo=837) BLOOD UREA NITROGEN 21 mg/dL 7-21 (BEAKER) (test szjc=447) CREATININE (BEAKER) (test 1.25 mg/dL 0.57-1.25 Specimen slightly lijm=062) hemolyzed GLUCOSE RANDOM (BEAKER) 82 mg/dL 70-105 (test rilz=696) CALCIUM (BEAKER) (test 8.9 mg/dL 8.4-10.2 wysi=017) EGFR (BEAKER) (test 61 mL/min/1.73 sq m ESTIMATED GFR IS NOT zfmx=8003) ACCURATE CREATININE CLEARANCE IN PREDICTING GLOMERULAR FILTRATION RATE. ESTIMATED GFR IS NOT APPLICABLE FOR DIALYSIS PATIENTS. CBC W/PLT COUNT & AUTO [id number] 05:44:00 Test Item Value Reference Range Comments WHITE BLOOD CELL COUNT (BEAKER) (test ohkd=794) 10.2 K/ L 3.5-10.5 RED BLOOD CELL COUNT (BEAKER) (test rvnc=618) 4.23 M/ L 4.63-6.08 HEMOGLOBIN (BEAKER) (test lpcd=594) 13.0 GM/DL 13.7-17.5 HEMATOCRIT (BEAKER) (test xesg=724) 38.2 % 40.1-51.0 MEAN CORPUSCULAR VOLUME (BEAKER) (test tmqi=871) 90.3 fL 79.0-92.2 MEAN CORPUSCULAR HEMOGLOBIN (BEAKER) (test 30.7 pg 25.7-32.2 rjet=601) MEAN CORPUSCULAR HEMOGLOBIN CONC (BEAKER) (test 34.0 GM/DL 32.3-36.5 wbbe=566) RED CELL DISTRIBUTION WIDTH (BEAKER) (test 13.3 % 11.6-14.4 cird=025) PLATELET COUNT (BEAKER) (test bdro=816) 220 K/CU MM 150-450 MEAN PLATELET VOLUME (BEAKER) (test fchc=482) 10.0 fL 9.4-12.4 NEUTROPHILS RELATIVE PERCENT (BEAKER) (test 66 % raht=326) LYMPHOCYTES RELATIVE PERCENT (BEAKER) (test 18 % hbwm=231) MONOCYTES RELATIVE PERCENT (BEAKER) (test 12 % jnte=609) EOSINOPHILS RELATIVE PERCENT (BEAKER) (test 3 % augm=204) BASOPHILS RELATIVE PERCENT (BEAKER) (test 1 % vtac=414) NEUTROPHILS ABSOLUTE COUNT (BEAKER) (test 6.77 K/ L 1.78-5.38 wjps=172) LYMPHOCYTES ABSOLUTE COUNT (BEAKER) (test 1.88 K/ L 1.32-3.57 ydfv=704) MONOCYTES ABSOLUTE COUNT (BEAKER) (test 1.21 K/ L 0.30-0.82 bejq=866) EOSINOPHILS ABSOLUTE COUNT (BEAKER) (test 0.30 K/ L 0.04-0.54 zzac=992) BASOPHILS ABSOLUTE COUNT (BEAKER) (test 0.06 K/ L 0.01-0.08 wjbr=721) IMMATURE GRANULOCYTES-RELATIVE PERCENT (BEAKER) 0 % 0-1 (test mkun=1454) URINALYSIS W/ REFLEX URINE [id number] 14:59:00 Test Item Value Reference Range Comments COLOR (BEAKER) (test sdkq=659) Yellow CLARITY (BEAKER) (test wahe=576) Slightly Cloudy SPECIFIC GRAVITY UA (BEAKER) (test wcwm=853) 1.015 1.005-1.030 PH UA (BEAKER) (test lsuq=621) 6.0 5.0-9.0 PROTEIN UA (BEAKER) (test vvcb=182) 30 mg/dL Negative GLUCOSE UA (BEAKER) (test hvuy=072) Negative Negative KETONES UA (BEAKER) (test cemp=203) Negative Negative BILIRUBIN UA (BEAKER) (test xipr=184) Negative Negative BLOOD UA (BEAKER) (test qvfk=410) Large Negative NITRITE UA (BEAKER) (test pjjs=699) Negative Negative LEUKOCYTE ESTERASE UA (BEAKER) (test Large Negative oooi=369) UROBILINOGEN UA (BEAKER) (test joem=023) 0.2 mg/dL 0.2-1.0 BACTERIA (BEAKER) (test qqcp=469) Many RBC UA-MANUAL (BEAKER) (test lhta=5144) 20-50 /HPF WBC UA-MANUAL (BEAKER) (test akik=1811) >100 /HPF SQUAMOUS EPITHELIAL MANUAL (BEAKER) (test <5 /HPF juyt=3431) SOURCE(BEAKER) (test fkto=6472) BASIC METABOLIC [id number] 05:28:00 Test Item Value Reference Range Comments SODIUM (BEAKER) (test 140 meq/L 136-145 uxeu=614) POTASSIUM (BEAKER) (test 3.8 meq/L 3.5-5.1 Specimen slightly jhcm=574) hemolyzed CHLORIDE (BEAKER) (test 103 meq/L 98-107 amji=529) CO2 (BEAKER) (test 30 meq/L 22-29 yted=229) BLOOD UREA NITROGEN 27 mg/dL 7-21 (BEAKER) (test trfy=245) CREATININE (BEAKER) (test 1.36 mg/dL 0.57-1.25 Specimen slightly oohv=459) hemolyzed GLUCOSE RANDOM (BEAKER) 96 mg/dL 70-105 (test rdfu=915) CALCIUM (BEAKER) (test 9.2 mg/dL 8.4-10.2 nump=770) EGFR (BEAKER) (test 55 mL/min/1.73 sq m ESTIMATED GFR IS NOT oevg=0858) ACCURATE CREATININE CLEARANCE IN PREDICTING GLOMERULAR FILTRATION RATE. ESTIMATED GFR IS NOT APPLICABLE FOR DIALYSIS PATIENTS. Specimen slightly ictericCBC W/PLT COUNT & AUTO [id number] 05:05 :00 Test Item Value Reference Range Comments WHITE BLOOD CELL COUNT (BEAKER) (test yibb=706) 9.9 K/ L 3.5-10.5 RED BLOOD CELL COUNT (BEAKER) (test ugbn=896) 4.09 M/ L 4.63-6.08 HEMOGLOBIN (BEAKER) (test ljsq=601) 12.4 GM/DL 13.7-17.5 HEMATOCRIT (BEAKER) (test asoi=614) 36.9 % 40.1-51.0 MEAN CORPUSCULAR VOLUME (BEAKER) (test xbdk=365) 90.2 fL 79.0-92.2 MEAN CORPUSCULAR HEMOGLOBIN (BEAKER) (test 30.3 pg 25.7-32.2 alqp=136) MEAN CORPUSCULAR HEMOGLOBIN CONC (BEAKER) (test 33.6 GM/DL 32.3-36.5 sqnc=668) RED CELL DISTRIBUTION WIDTH (BEAKER) (test 13.0 % 11.6-14.4 uqen=662) PLATELET COUNT (BEAKER) (test trya=954) 218 K/CU MM 150-450 MEAN PLATELET VOLUME (BEAKER) (test kfqw=939) 9.4 fL 9.4-12.4 NEUTROPHILS RELATIVE PERCENT (BEAKER) (test 64 % lhai=209) LYMPHOCYTES RELATIVE PERCENT (BEAKER) (test 21 % rbvq=163) MONOCYTES RELATIVE PERCENT (BEAKER) (test 9 % guqw=796) EOSINOPHILS RELATIVE PERCENT (BEAKER) (test 4 % nlnh=322) BASOPHILS RELATIVE PERCENT (BEAKER) (test 1 % ozoo=469) NEUTROPHILS ABSOLUTE COUNT (BEAKER) (test 6.38 K/ L 1.78-5.38 ejqd=102) LYMPHOCYTES ABSOLUTE COUNT (BEAKER) (test 2.09 K/ L 1.32-3.57 nnod=006) MONOCYTES ABSOLUTE COUNT (BEAKER) (test 0.93 K/ L 0.30-0.82 xopp=451) EOSINOPHILS ABSOLUTE COUNT (BEAKER) (test 0.43 K/ L 0.04-0.54 ewqb=586) BASOPHILS ABSOLUTE COUNT (BEAKER) (test 0.08 K/ L 0.01-0.08 vkej=040) IMMATURE GRANULOCYTES-RELATIVE PERCENT (BEAKER) 0 % 0-1 (test wrpw=0271) URINALYSIS [id number] 13:39:00 Test Item Value Reference Range Comments RBC UA (BEAKER) (test jwpt=613) 20 /HPF WBC UA (BEAKER) (test dtlp=511) > /HPF BACTERIA (BEAKER) (test pghf=263) Many SQUAMOUS EPITHELIAL (BEAKER) (test qkrg=142) < /HPF URINALYSIS WITH MICROSCOPIC IF [id number] 13:39:00 Test Item Value Reference Range Comments COLOR (BEAKER) (test femt=167) Yellow CLARITY (BEAKER) (test wnec=316) Cloudy SPECIFIC GRAVITY UA (BEAKER) (test dcuy=331) 1.015 1.005-1.030 PH UA (BEAKER) (test aauh=844) 6.5 5.0-9.0 PROTEIN UA (BEAKER) (test fgul=327) 100 mg/dL Negative GLUCOSE UA (BEAKER) (test kjcz=481) Negative Negative KETONES UA (BEAKER) (test sdla=008) Negative Negative BILIRUBIN UA (BEAKER) (test wrgz=546) Negative Negative BLOOD UA (BEAKER) (test jczb=436) Large Negative NITRITE UA (BEAKER) (test kkop=322) Negative Negative LEUKOCYTE ESTERASE UA (BEAKER) (test dqmy=112) Moderate Negative UROBILINOGEN UA (BEAKER) (test zazl=030) 0.2 mg/dL 0.2-1.0 SOURCE(BEAKER) (test rgqo=5276) RAD, ABDOMEN/KUB, 1 VIEW [id number] 22:26:00Reason for exam:->back pain, constipationShould this be [...] Mccurdy MDReport Verified Date/Time:02/24/2019 22:26:00 Reading Location: [address] Reading Room Electronically signed by: DANNY MCCURDY M.D. on 10:26 [facility] [id number] 06:16:00 Test Item Value Reference Range Comments TOTAL PROTEIN (BEAKER) 6.4 gm/dL 6.0-8.3 (test kdqe=488) ALBUMIN (BEAKER) (test 4.0 g/dL 3.5-5.0 ysgr=6812) ALKALINE PHOSPHATASE 110 U/L 40-150 (BEAKER) (test eloj=062) BILIRUBIN TOTAL (BEAKER) 1.4 mg/dL 0.2-1.2 (test opan=332) SODIUM (BEAKER) (test 142 meq/L 136-145 xvra=912) POTASSIUM (BEAKER) (test 3.6 meq/L 3.5-5.1 heao=909) CHLORIDE (BEAKER) (test 104 meq/L 98-107 pplh=462) CO2 (BEAKER) (test 29 meq/L 22-29 hqwc=633) BLOOD UREA NITROGEN 14 mg/dL 7-21 (BEAKER) (test nkzu=250) CREATININE (BEAKER) (test 1.11 mg/dL 0.57-1.25 ysdw=519) GLUCOSE RANDOM (BEAKER) 86 mg/dL 70-105 (test ywqz=484) CALCIUM (BEAKER) (test 8.7 mg/dL 8.4-10.2 kpyk=092) AST (SGOT) (BEAKER) (test 47 U/L 5-34 naqx=449) ALT (SGPT) (BEAKER) (test 35 U/L 6-55 efkl=511) EGFR (BEAKER) (test 70 mL/min/1.73 sq m ESTIMATED GFR IS NOT qase=8490) ACCURATE CREATININE CLEARANCE IN PREDICTING GLOMERULAR FILTRATION RATE. ESTIMATED GFR IS NOT APPLICABLE FOR DIALYSIS PATIENTS. CBC W/PLT COUNT & AUTO [id number] 05:59:00 Test Item Value Reference Range Comments WHITE BLOOD CELL COUNT (BEAKER) (test ckne=536) 6.1 K/ L 3.5-10.5 RED BLOOD CELL COUNT (BEAKER) (test qgzj=406) 4.04 M/ L 4.63-6.08 HEMOGLOBIN (BEAKER) (test kqbr=892) 12.2 GM/DL 13.7-17.5 HEMATOCRIT (BEAKER) (test bgae=361) 36.2 % 40.1-51.0 MEAN CORPUSCULAR VOLUME (BEAKER) (test bdmt=605) 89.6 fL 79.0-92.2 MEAN CORPUSCULAR HEMOGLOBIN (BEAKER) (test 30.2 pg 25.7-32.2 ibhe=305) MEAN CORPUSCULAR HEMOGLOBIN CONC (BEAKER) (test 33.7 GM/DL 32.3-36.5 wvmp=991) RED CELL DISTRIBUTION WIDTH (BEAKER) (test 12.6 % 11.6-14.4 cxgq=873) PLATELET COUNT (BEAKER) (test ypol=779) 182 K/CU MM 150-450 MEAN PLATELET VOLUME (BEAKER) (test xfuv=622) 9.8 fL 9.4-12.4 NEUTROPHILS RELATIVE PERCENT (BEAKER) (test 51 % vzcn=433) LYMPHOCYTES RELATIVE PERCENT (BEAKER) (test 33 % woaw=632) MONOCYTES RELATIVE PERCENT (BEAKER) (test 9 % dzol=316) EOSINOPHILS RELATIVE PERCENT (BEAKER) (test 6 % duly=443) BASOPHILS RELATIVE PERCENT (BEAKER) (test 1 % fbwx=218) NEUTROPHILS ABSOLUTE COUNT (BEAKER) (test 3.08 K/ L 1.78-5.38 lumt=141) LYMPHOCYTES ABSOLUTE COUNT (BEAKER) (test 1.98 K/ L 1.32-3.57 vvqs=691) MONOCYTES ABSOLUTE COUNT (BEAKER) (test 0.55 K/ L 0.30-0.82 qsgu=423) EOSINOPHILS ABSOLUTE COUNT (BEAKER) (test 0.35 K/ L 0.04-0.54 fgep=212) BASOPHILS ABSOLUTE COUNT (BEAKER) (test 0.07 K/ L 0.01-0.08 lonw=539) IMMATURE GRANULOCYTES-RELATIVE PERCENT (BEAKER) 0 % 0-1 (test ppnn=2866) [id number] 06:58:00 Test Item Value Reference Range Comments PHOSPHORUS (BEAKER) (test jtjm=847) 4.1 mg/dL 2.3-4.7 [id number] 06:58:00 Test Item Value Reference Range Comments MAGNESIUM (BEAKER) (test gsce=102) 2.1 mg/dL 1.6-2.6 BASIC METABOLIC [id number] 06:58:00 Test Item Value Reference Range Comments SODIUM (BEAKER) (test 140 meq/L 136-145 bkud=258) POTASSIUM (BEAKER) (test 3.8 meq/L 3.5-5.1 bdos=188) CHLORIDE (BEAKER) (test 105 meq/L 98-107 zpre=563) CO2 (BEAKER) (test 25 meq/L 22-29 kota=040) BLOOD UREA NITROGEN 19 mg/dL 7-21 (BEAKER) (test acyj=281) CREATININE (BEAKER) (test 1.09 mg/dL 0.57-1.25 ybjf=272) GLUCOSE RANDOM (BEAKER) 90 mg/dL 70-105 (test limj=324) CALCIUM (BEAKER) (test 8.9 mg/dL 8.4-10.2 fubx=042) EGFR (BEAKER) (test 71 mL/min/1.73 sq m ESTIMATED GFR IS NOT boub=2066) ACCURATE CREATININE CLEARANCE IN PREDICTING GLOMERULAR FILTRATION RATE. ESTIMATED GFR IS NOT APPLICABLE FOR DIALYSIS PATIENTS. CBC W/PLT COUNT & AUTO [id number] 05:37:00 Test Item Value Reference Range Comments WHITE BLOOD CELL COUNT (BEAKER) (test jopv=210) 5.7 K/ L 3.5-10.5 RED BLOOD CELL COUNT (BEAKER) (test xkgi=612) 3.87 M/ L 4.63-6.08 HEMOGLOBIN (BEAKER) (test znil=726) 11.6 GM/DL 13.7-17.5 HEMATOCRIT (BEAKER) (test aghj=608) 35.4 % 40.1-51.0 MEAN CORPUSCULAR VOLUME (BEAKER) (test zeii=002) 91.5 fL 79.0-92.2 MEAN CORPUSCULAR HEMOGLOBIN (BEAKER) (test 30.0 pg 25.7-32.2 ueel=296) MEAN CORPUSCULAR HEMOGLOBIN CONC (BEAKER) (test 32.8 GM/DL 32.3-36.5 rtjm=870) RED CELL DISTRIBUTION WIDTH (BEAKER) (test 12.8 % 11.6-14.4 fosm=689) PLATELET COUNT (BEAKER) (test abmo=282) 150 K/CU MM 150-450 MEAN PLATELET VOLUME (BEAKER) (test iczj=561) 10.3 fL 9.4-12.4 NUCLEATED RED BLOOD CELLS (BEAKER) (test 0 /100 WBC 0-0 mbaf=961) NEUTROPHILS RELATIVE PERCENT (BEAKER) (test 51 % ckpw=215) LYMPHOCYTES RELATIVE PERCENT (BEAKER) (test 32 % rqjo=947) MONOCYTES RELATIVE PERCENT (BEAKER) (test 10 % eqwp=441) EOSINOPHILS RELATIVE PERCENT (BEAKER) (test 6 % yqml=392) BASOPHILS RELATIVE PERCENT (BEAKER) (test 1 % lwsx=296) NEUTROPHILS ABSOLUTE COUNT (BEAKER) (test 2.90 K/ L 1.78-5.38 tyag=770) LYMPHOCYTES ABSOLUTE COUNT (BEAKER) (test 1.85 K/ L 1.32-3.57 jvst=067) MONOCYTES ABSOLUTE COUNT (BEAKER) (test 0.56 K/ L 0.30-0.82 ubux=289) EOSINOPHILS ABSOLUTE COUNT (BEAKER) (test 0.35 K/ L 0.04-0.54 xkgd=534) BASOPHILS ABSOLUTE COUNT (BEAKER) (test 0.05 K/ L 0.01-0.08 zatm=824) IMMATURE GRANULOCYTES-RELATIVE PERCENT (BEAKER) 0 % 0-1 (test bwcc=4944) BLOOD [id number] 08:01:00 Test Item Value Reference Range Comments CULTURE (BEAKER) (test pxae=3911) No growth in 5 days BLOOD [id number] 08:01:00 Test Item Value Reference Range Comments CULTURE (BEAKER) (test fbtl=6790) No growth in 5 days [id number] 05:17:00 Test Item Value Reference Range Comments PHOSPHORUS (BEAKER) (test kzgk=371) 4.4 mg/dL 2.3-4.7 [id number] 05:17:00 Test Item Value Reference Range Comments MAGNESIUM (BEAKER) (test zszq=984) 2.0 mg/dL 1.6-2.6 BASIC METABOLIC [id number] 05:17:00 Test Item Value Reference Range Comments SODIUM (BEAKER) (test 141 meq/L 136-145 kiua=238) POTASSIUM (BEAKER) (test 3.5 meq/L 3.5-5.1 xjnh=388) CHLORIDE (BEAKER) (test 105 meq/L 98-107 lnwc=143) CO2 (BEAKER) (test 30 meq/L 22-29 mxix=082) BLOOD UREA NITROGEN 18 mg/dL 7-21 (BEAKER) (test cmbo=331) CREATININE (BEAKER) (test 0.98 mg/dL 0.57-1.25 witt=301) GLUCOSE RANDOM (BEAKER) 97 mg/dL 70-105 (test oxkd=863) CALCIUM (BEAKER) (test 8.9 mg/dL 8.4-10.2 cutf=111) EGFR (BEAKER) (test 80 mL/min/1.73 sq m ESTIMATED GFR IS NOT dufb=8109) ACCURATE CREATININE CLEARANCE IN PREDICTING GLOMERULAR FILTRATION RATE. ESTIMATED GFR IS NOT APPLICABLE FOR DIALYSIS PATIENTS. CBC W/PLT COUNT & AUTO [id number] 04:43:00 Test Item Value Reference Range Comments WHITE BLOOD CELL COUNT (BEAKER) (test pese=371) 5.0 K/ L 3.5-10.5 RED BLOOD CELL COUNT (BEAKER) (test kpsd=464) 3.84 M/ L 4.63-6.08 HEMOGLOBIN (BEAKER) (test paet=000) 11.6 GM/DL 13.7-17.5 HEMATOCRIT (BEAKER) (test arer=174) 33.8 % 40.1-51.0 MEAN CORPUSCULAR VOLUME (BEAKER) (test lqsc=400) 88.0 fL 79.0-92.2 MEAN CORPUSCULAR HEMOGLOBIN (BEAKER) (test 30.2 pg 25.7-32.2 hwrg=666) MEAN CORPUSCULAR HEMOGLOBIN CONC (BEAKER) (test 34.3 GM/DL 32.3-36.5 hopg=304) RED CELL DISTRIBUTION WIDTH (BEAKER) (test 12.6 % 11.6-14.4 qzvz=188) PLATELET COUNT (BEAKER) (test dkqv=460) 131 K/CU MM 150-450 MEAN PLATELET VOLUME (BEAKER) (test armr=520) 10.2 fL 9.4-12.4 NUCLEATED RED BLOOD CELLS (BEAKER) (test 0 /100 WBC 0-0 wbud=562) NEUTROPHILS RELATIVE PERCENT (BEAKER) (test 45 % wxkn=842) LYMPHOCYTES RELATIVE PERCENT (BEAKER) (test 39 % wcgu=503) MONOCYTES RELATIVE PERCENT (BEAKER) (test 9 % rqmj=122) EOSINOPHILS RELATIVE PERCENT (BEAKER) (test 7 % xzht=820) BASOPHILS RELATIVE PERCENT (BEAKER) (test 1 % phcj=120) NEUTROPHILS ABSOLUTE COUNT (BEAKER) (test 2.26 K/ L 1.78-5.38 kwop=650) LYMPHOCYTES ABSOLUTE COUNT (BEAKER) (test 1.94 K/ L 1.32-3.57 dbtc=374) MONOCYTES ABSOLUTE COUNT (BEAKER) (test 0.46 K/ L 0.30-0.82 lvmf=931) EOSINOPHILS ABSOLUTE COUNT (BEAKER) (test 0.33 K/ L 0.04-0.54 gpqk=333) BASOPHILS ABSOLUTE COUNT (BEAKER) (test 0.04 K/ L 0.01-0.08 szhr=699) IMMATURE GRANULOCYTES-RELATIVE PERCENT (BEAKER) 0 % 0-1 (test lmen=5403) NV, ANGIOGRAM, [id number] 13:20:00Reason for exam:->CEREBROVASCULAR ACCIDENTFINAL REPORT DATE: 02/14/2019 SURGEON: Adina Khan M.D. CASE WORK AIDE: Ruchi Pacheco M.D. PREOPERATIVE DIAGNOSIS: Right MCA [...] femoral artery was performed and a 8 [place] short sheath was inserted and placed on heparinized flush. An 8 [place] Infinity long sheath was advanced into the [...] and a triaxial system comprising an 8 [place] Infinity guide catheter, an Catalyst 7 distal [...] in the same location. This time a [id number] x 30mm stent retriever was positioned across [...] findings. The catheters were removed. The 8 [place] sheath was removed. Hemostasis was achieved with [...] immediate technical or clinical complications. Signed: Adina Khanepjaky Verified Date/Time: 02/19/2019 13:20:54 Reading Location: [facility] Y026 Neuro Angio Reading Room [id number] 08:50:00 Test Item Value Reference Range Comments PHOSPHORUS (BEAKER) (test bafp=010) 3.9 mg/dL 2.3-4.7 [id number] 08:50:00 Test Item Value Reference Range Comments MAGNESIUM (BEAKER) (test umit=154) 2.1 mg/dL 1.6-2.6 BASIC METABOLIC [id number] 08:50:00 Test Item Value Reference Range Comments SODIUM (BEAKER) (test 137 meq/L 136-145 vysj=479) POTASSIUM (BEAKER) (test 3.8 meq/L 3.5-5.1 ombv=777) CHLORIDE (BEAKER) (test 102 meq/L 98-107 csrg=674) CO2 (BEAKER) (test 24 meq/L 22-29 nfje=023) BLOOD UREA NITROGEN 15 mg/dL 7-21 (BEAKER) (test gpqj=022) CREATININE (BEAKER) (test 0.98 mg/dL 0.57-1.25 utqe=086) GLUCOSE RANDOM (BEAKER) 95 mg/dL 70-105 (test acca=519) CALCIUM (BEAKER) (test 9.0 mg/dL 8.4-10.2 zeyh=364) EGFR (BEAKER) (test 80 mL/min/1.73 sq m ESTIMATED GFR IS NOT zoko=5688) ACCURATE CREATININE CLEARANCE IN PREDICTING GLOMERULAR FILTRATION RATE. ESTIMATED GFR IS NOT APPLICABLE FOR DIALYSIS PATIENTS. CBC W/PLT COUNT & AUTO [id number] 08:10:00 Test Item Value Reference Range Comments WHITE BLOOD CELL COUNT 4.2 K/ L 3.5-10.5 (BEAKER) (test jesd=615) RED BLOOD CELL COUNT (BEAKER) 4.11 M/ L 4.63-6.08 (test yrwz=776) HEMOGLOBIN (BEAKER) (test 12.4 GM/DL 13.7-17.5 kagc=271) HEMATOCRIT (BEAKER) (test 35.8 % 40.1-51.0 ikde=046) MEAN CORPUSCULAR VOLUME 87.1 fL 79.0-92.2 Discordant result compares (BEAKER) (test qxzw=746) with previous; clinical correlation requires. MEAN CORPUSCULAR HEMOGLOBIN 30.2 pg 25.7-32.2 (BEAKER) (test vhym=298) MEAN CORPUSCULAR HEMOGLOBIN 34.6 GM/DL 32.3-36.5 CONC (BEAKER) (test hoki=397) RED CELL DISTRIBUTION WIDTH 12.4 % 11.6-14.4 (BEAKER) (test adlh=619) PLATELET COUNT (BEAKER) (test 104 K/CU MM 150-450 aszj=826) MEAN PLATELET VOLUME (BEAKER) 10.2 fL 9.4-12.4 (test xdky=992) NUCLEATED RED BLOOD CELLS 0 /100 WBC 0-0 (BEAKER) (test odgl=562) NEUTROPHILS RELATIVE PERCENT 48 % (BEAKER) (test cslc=830) LYMPHOCYTES RELATIVE PERCENT 34 % (BEAKER) (test bbvj=519) MONOCYTES RELATIVE PERCENT 10 % (BEAKER) (test ewte=646) EOSINOPHILS RELATIVE PERCENT 7 % (BEAKER) (test yums=177) BASOPHILS RELATIVE PERCENT 1 % (BEAKER) (test wlzo=544) NEUTROPHILS ABSOLUTE COUNT 2.03 K/ L 1.78-5.38 (BEAKER) (test lraj=559) LYMPHOCYTES ABSOLUTE COUNT 1.45 K/ L 1.32-3.57 (BEAKER) (test umwx=651) MONOCYTES ABSOLUTE COUNT 0.43 K/ L 0.30-0.82 (BEAKER) (test fnkj=646) EOSINOPHILS ABSOLUTE COUNT 0.28 K/ L 0.04-0.54 (BEAKER) (test dqqw=332) BASOPHILS ABSOLUTE COUNT 0.04 K/ L 0.01-0.08 (BEAKER) (test odfe=715) IMMATURE 0 % 0-1 GRANULOCYTES-RELATIVE PERCENT (BEAKER) (test tucl=2198) CT, CHEST, WITH [id number] 09:37:00FINAL REPORT CT Chest, abdomen, and pelvis [...] MDReport Verified Date/Time: 2018 09:37:19 Reading Location: [address] Ortho Consult Reading Room CT, [id number] 09:37:00FINAL REPORT CT Chest, abdomen , and [...] MDReport Verified Date/Time: 02/18/2019 09:37:19 Reading Location: [facility] [id number] Ortho Consult Reading Room POCT-GLUCOSE [id number] 12:31:00 Test Item Value Reference Range Comments POC-GLUCOSE METER (BEAKER) 94 mg/dL 70-110 TESTED AT [address] (test hfkz=6712) [facility] [address] POCT-GLUCOSE [id number] 06:34:00 Test Item Value Reference Range Comments POC-GLUCOSE METER (BEAKER) 94 mg/dL 70-110 TESTED AT [address] (test fgob=8010) [facility] [address] [id number] 06:10:00 Test Item Value Reference Range Comments PHOSPHORUS (BEAKER) (test jwky=985) 2.5 mg/dL 2.3-4.7 [id number] 06:10:00 Test Item Value Reference Range Comments MAGNESIUM (BEAKER) (test bjkh=110) 2.0 mg/dL 1.6-2.6 BASIC METABOLIC [id number] 06:10:00 Test Item Value Reference Range Comments SODIUM (BEAKER) (test 139 meq/L 136-145 yvvf=695) POTASSIUM (BEAKER) (test 4.0 meq/L 3.5-5.1 agxb=792) CHLORIDE (BEAKER) (test 109 meq/L 98-107 arhd=658) CO2 (BEAKER) (test 23 meq/L 22-29 cgjx=989) BLOOD UREA NITROGEN 15 mg/dL 7-21 (BEAKER) (test ldri=603) CREATININE (BEAKER) (test 0.89 mg/dL 0.57-1.25 qypg=093) GLUCOSE RANDOM (BEAKER) 93 mg/dL 70-105 (test tpfe=473) CALCIUM (BEAKER) (test 8.1 mg/dL 8.4-10.2 kput=152) EGFR (BEAKER) (test 90 mL/min/1.73 sq m ESTIMATED GFR IS NOT gpfr=5108) ACCURATE CREATININE CLEARANCE IN PREDICTING GLOMERULAR FILTRATION RATE. ESTIMATED GFR IS NOT APPLICABLE FOR DIALYSIS PATIENTS. TROPONIN [id number] 05:43:00 Test Item Value Reference Range Comments TROPONIN I (BEAKER) (test uhrb=064) 0.09 ng/mL 0.00-0.03 Troponin I (TnI) levels [...] acute neurological disease, and persistent tachyarrhythmia.LACTIC ACID, [id number] 05:24:00 Test Item Value Reference Range Comments LACTATE BLOOD VENOUS (2) (BEAKER) (test 0.5 mmol/L 0.5-2.2 llxh=9978) CBC W/PLT COUNT & AUTO [id number] 04:16:00 Test Item Value Reference Range Comments WHITE BLOOD CELL COUNT (BEAKER) (test ptpg=496) 5.5 K/ L 3.5-10.5 RED BLOOD CELL COUNT (BEAKER) (test pzji=010) 3.28 M/ L 4.63-6.08 HEMOGLOBIN (BEAKER) (test ivlp=845) 10.0 GM/DL 13.7-17.5 HEMATOCRIT (BEAKER) (test fwok=017) 30.0 % 40.1-51.0 MEAN CORPUSCULAR VOLUME (BEAKER) (test pocz=564) 91.5 fL 79.0-92.2 MEAN CORPUSCULAR HEMOGLOBIN (BEAKER) (test 30.5 pg 25.7-32.2 jtvh=613) MEAN CORPUSCULAR HEMOGLOBIN CONC (BEAKER) (test 33.3 GM/DL 32.3-36.5 wvlp=984) RED CELL DISTRIBUTION WIDTH (BEAKER) (test 12.5 % 11.6-14.4 fvyt=497) PLATELET COUNT (BEAKER) (test fryo=364) 62 K/CU MM 150-450 MEAN PLATELET VOLUME (BEAKER) (test wvvd=867) 9.9 fL 9.4-12.4 NUCLEATED RED BLOOD CELLS (BEAKER) (test 0 /100 WBC 0-0 udja=930) NEUTROPHILS RELATIVE PERCENT (BEAKER) (test 54 % nvop=206) LYMPHOCYTES RELATIVE PERCENT (BEAKER) (test 26 % nvur=103) MONOCYTES RELATIVE PERCENT (BEAKER) (test 14 % hhhe=696) EOSINOPHILS RELATIVE PERCENT (BEAKER) (test 6 % scwm=136) BASOPHILS RELATIVE PERCENT (BEAKER) (test 1 % smbq=188) NEUTROPHILS ABSOLUTE COUNT (BEAKER) (test 2.99 K/ L 1.78-5.38 acwi=151) LYMPHOCYTES ABSOLUTE COUNT (BEAKER) (test 1.41 K/ L 1.32-3.57 pelf=789) MONOCYTES ABSOLUTE COUNT (BEAKER) (test ribv=839) 0.74 K/ L 0.30-0.82 EOSINOPHILS ABSOLUTE COUNT (BEAKER) (test 0.32 K/ L 0.04-0.54 rrqa=596) BASOPHILS ABSOLUTE COUNT (BEAKER) (test lrxh=669) 0.03 K/ L 0.01-0.08 IMMATURE GRANULOCYTES-RELATIVE PERCENT (BEAKER) 0 % 0-1 (test plje=7093) POCT-GLUCOSE [id number] 00:26:00 Test Item Value Reference Range Comments POC-GLUCOSE METER (BEAKER) 101 mg/dL 70-110 TESTED AT [facility] [address] (test edaf=9369) [facility] [address] TROPONIN [id number] 18:22:00 Test Item Value Reference Range Comments TROPONIN I (BEAKER) (test enhq=645) 0.09 ng/mL 0.00-0.03 Troponin I (TnI) levels [...] failure, acidosis, acute neurological disease, and persistent tachyarrhythmia.[id number] 18:04:00 Test Item Value Reference Range Comments FIBRINOGEN LEVEL (BEAKER) (test zonw=535) 359 mg/dl 225-434 POCT-GLUCOSE [id number] 17:25:00 Test Item Value Reference Range Comments POC-GLUCOSE METER (BEAKER) 83 mg/dL 70-110 TESTED AT [address] (test bvuy=1993) [place] [address] [id number] 16:12:00 Test Item Value Reference Range Comments MAGNESIUM (BEAKER) (test alkh=833) 2.2 mg/dL 1.6-2.6 PERIPHERAL BLOOD SMEAR - HOLD [id number] 14:21:00 Test Item Value Reference Range Comments PERIPHERAL SMEAR SAVE (BEAKER) (test afdc=5246) saved TROPONIN [id number] 13:17:00 Test Item Value Reference Range Comments TROPONIN I (BEAKER) (test xsss=249) 0.09 ng/mL 0.00-0.03 Troponin I (TnI) levels [...] acidosis, acute neurological disease, and persistent tachyarrhythmia.POCT-GLUCOSE [id number] 12:04:00 Test Item Value Reference Range Comments POC-GLUCOSE METER (BEAKER) 134 mg/dL 70-110 TESTED AT [address] (test rhwu=2838) [facility] [address] RAD, CHEST, 1 VIEW, NON [id number] 11:06:00Reason for exam:->pulmonary congestionShould this be performed [...] atelectasis or pneumonia/ aspiration. Signed: Nicole Gutierrez MDReport VerifiedDate/Time: 02/16/2019 11:06 :29 Reading Location: [facility] Radiology Reading Room POCT-GLUCOSE [id number] 05:58:00 Test Item Value Reference Range Comments POC-GLUCOSE METER (BEAKER) 74 mg/dL 70-110 TESTED AT [address] (test hrys=0075) [facility] [address] VANCOMYCIN LEVEL, [id number] 04:01:00 Test Item Value Reference Range Comments VANCOMYCIN TROUGH (BEAKER) (test wzdg=534) 10.9 ug/mL 10.0-20.0 [id number] 03:57:00 Test Item Value Reference Range Comments PHOSPHORUS (BEAKER) (test kmpj=278) 1.9 mg/dL 2.3-4.7 [id number] 03:57:00 Test Item Value Reference Range Comments MAGNESIUM (BEAKER) (test dszs=120) 1.7 mg/dL 1.6-2.6 BASIC METABOLIC [id number] 03:57:00 Test Item Value Reference Range Comments SODIUM (BEAKER) (test 138 meq/L 136-145 jrdc=632) POTASSIUM (BEAKER) (test 3.9 meq/L 3.5-5.1 vagc=017) CHLORIDE (BEAKER) (test 108 meq/L 98-107 fndx=982) CO2 (BEAKER) (test 22 meq/L 22-29 sssk=404) BLOOD UREA NITROGEN 17 mg/dL 7-21 (BEAKER) (test mtcl=347) CREATININE (BEAKER) (test 1.06 mg/dL 0.57-1.25 bfiq=273) GLUCOSE RANDOM (BEAKER) 93 mg/dL 70-105 (test busz=774) CALCIUM (BEAKER) (test 8.4 mg/dL 8.4-10.2 voyz=310) EGFR (BEAKER) (test 73 mL/min/1.73 sq m ESTIMATED GFR IS NOT zomu=7786) ACCURATE CREATININE CLEARANCE IN PREDICTING GLOMERULAR FILTRATION RATE. ESTIMATED GFR IS NOT APPLICABLE FOR DIALYSIS PATIENTS. CBC W/PLT COUNT & AUTO [id number] 03:56:00 Test Item Value Reference Range Comments WHITE BLOOD CELL COUNT (BEAKER) (test vyov=868) 6.2 K/ L 3.5-10.5 RED BLOOD CELL COUNT (BEAKER) (test sqtu=716) 3.25 M/ L 4.63-6.08 HEMOGLOBIN (BEAKER) (test domz=899) 10.0 GM/DL 13.7-17.5 HEMATOCRIT (BEAKER) (test bbjc=775) 29.7 % 40.1-51.0 MEAN CORPUSCULAR VOLUME (BEAKER) (test ampq=031) 91.4 fL 79.0-92.2 MEAN CORPUSCULAR HEMOGLOBIN (BEAKER) (test 30.8 pg 25.7-32.2 esds=484) MEAN CORPUSCULAR HEMOGLOBIN CONC (BEAKER) (test 33.7 GM/DL 32.3-36.5 dmns=309) RED CELL DISTRIBUTION WIDTH (BEAKER) (test 12.5 % 11.6-14.4 fgeu=864) PLATELET COUNT (BEAKER) (test xppx=264) 58 K/CU MM 150-450 MEAN PLATELET VOLUME (BEAKER) (test kqaq=151) 10.4 fL 9.4-12.4 NUCLEATED RED BLOOD CELLS (BEAKER) (test 0 /100 WBC 0-0 szpd=958) NEUTROPHILS RELATIVE PERCENT (BEAKER) (test 63 % bjww=047) LYMPHOCYTES RELATIVE PERCENT (BEAKER) (test 18 % npyp=027) MONOCYTES RELATIVE PERCENT (BEAKER) (test 17 % vqfp=465) EOSINOPHILS RELATIVE PERCENT (BEAKER) (test 2 % xdfm=225) BASOPHILS RELATIVE PERCENT (BEAKER) (test 1 % ozbd=494) NEUTROPHILS ABSOLUTE COUNT (BEAKER) (test 3.88 K/ L 1.78-5.38 ilbd=275) LYMPHOCYTES ABSOLUTE COUNT (BEAKER) (test 1.11 K/ L 1.32-3.57 vvsv=864) MONOCYTES ABSOLUTE COUNT (BEAKER) (test htqb=675) 1.03 K/ L 0.30-0.82 EOSINOPHILS ABSOLUTE COUNT (BEAKER) (test 0.09 K/ L 0.04-0.54 bmwc=972) BASOPHILS ABSOLUTE COUNT (BEAKER) (test njme=321) 0.04 K/ L 0.01-0.08 IMMATURE GRANULOCYTES-RELATIVE PERCENT (BEAKER) 0 % 0-1 (test vdfn=2475) LACTIC ACID, [id number] 03:26:00 Test Item Value Reference Range Comments LACTATE BLOOD VENOUS (2) (BEAKER) (test 0.7 mmol/L 0.5-2.2 ivoj=4860) TROPONIN [id number] 01:05:00 Test Item Value Reference Range Comments TROPONIN I (BEAKER) (test wnax=095) 0.14 ng/mL 0.00-0.03 Troponin I (TnI) levels [...] completed or 30 min after intravenous potassium replacement.[id number] 01:01:00 Test Item Value Reference Range Comments POTASSIUM (BEAKER) (test pnlp=458) 4.0 meq/L 3.5-5.1 Check Serum Potassium level 2 hours after oral potassium replacement completed or 30 min after intravenous potassium replacement.POCT-GLUCOSE [id number] 00:17:00 Test Item Value Reference Range Comments POC-GLUCOSE METER (BEAKER) 105 mg/dL 70-110 TESTED AT [facility] [address] (test bivp=5066) [facility] [address] MR, BRAIN, WITHOUT [id number] 19:38:00Reason for exam:-> CEREBROVASCULAR ACCIDENTFINAL REPORT MR, [...] the right. Punctate infarcts of the left MATERIALS CLERK and posterior circulation territory including the left [...] mass effect. Punctate infarcts of the left MATERIALS CLERK territory including the left occipital lobe and left cerebellar sphere. Signed: Gia Staton MDReport Verified Date/Time: 02/15/2019 19:38: 56 Reading Location: [address] Neuro Reading Room TROPONIN [id number] 19:30:00 Test Item Value Reference Range Comments TROPONIN I (BEAKER) (test ytoh=608) 0.23 ng/mL 0.00-0.03 Troponin I (TnI) levels [...] completed or 30 min after intravenous potassium replacement.[id number] 19:11:00 Test Item Value Reference Range Comments POTASSIUM (BEAKER) (test plsw=749) 3.4 meq/L 3.5-5.1 Check Serum Potassium level 2 hours after oral potassium replacement completed or 30 min after intravenous potassium replacement.POCT-GLUCOSE [id number] 18:38:00 Test Item Value Reference Range Comments POC-GLUCOSE METER (BEAKER) 108 mg/dL 70-110 TESTED AT [address] (test vvls=0654) [facility] [address] PERIPHERAL BLOOD SMEAR - PATHOLOGIST [id number] 16:30:00 Test Item Value Reference Range Comments WBC MORPHOLOGY (BEAKER) (test Toxic Granulation wkco=0438) PERIPHERAL SMR REVIEW (BEAKER) Cell counts confirmed. (test lnab=9510) [id number] (BEAKER) Anna Goel M.D. (test fosb=4228) (electronic signature) (MANUAL DIFFERENTIAL)2019-02-15 14:22:00 Test Item Value Reference Range Comments NEUTROPHILS - REL (DIFF) (BEAKER) (test wtuj=6464) 74 % LYMPHOCYTES - REL (DIFF) (BEAKER) (test rkse=1231) 11 % MONOCYTES - REL (DIFF) (BEAKER) (test bsch=1090) 13 % EOSINOPHILS - REL (DIFF) (BEAKER) (test xeon=3265) 2 % NEUTROPHILS - ABS (DIFF) (BEAKER) (test zsnx=8843) 5.03 K/ L 1.80-8.00 LYMPHOCYTES - ABS (DIFF) (BEAKER) (test gbfg=1197) 0.75 K/ L 1.48-4.50 MONOCYTES - ABS (DIFF) (BEAKER) (test yiqq=1795) 0.88 K/ L 0.00-1.30 EOSINOPHILS - ABS (DIFF) (BEAKER) (test jwvb=2365) 0.14 K/ L 0.00-0.50 TOTAL COUNTED (BEAKER) (test rgir=4434) 100 WBC MORPHOLOGY (BEAKER) (test rbjl=189) Normal PLT MORPHOLOGY (BEAKER) (test zgaf=778) Normal RBC MORPHOLOGY (BEAKER) (test udru=333) Normal POCT-GLUCOSE [id number] 12:36:00 Test Item Value Reference Range Comments POC-GLUCOSE METER (BEAKER) 100 mg/dL 70-110 TESTED AT [address] (test eivr=6439) [facility] [address] CBC WITH PLATELET COUNT + MANUAL [id number] 11:17:00 Test Item Value Reference Range Comments WHITE BLOOD CELL COUNT (BEAKER) (test sfjy=667) 6.8 K/ L 3.5-10.5 RED BLOOD CELL COUNT (BEAKER) (test axtm=982) 3.84 M/ L 4.63-6.08 HEMOGLOBIN (BEAKER) (test qxkm=846) 11.6 GM/DL 13.7-17.5 HEMATOCRIT (BEAKER) (test vvss=951) 35.4 % 40.1-51.0 MEAN CORPUSCULAR VOLUME (BEAKER) (test tiuo=030) 92.2 fL 79.0-92.2 MEAN CORPUSCULAR HEMOGLOBIN (BEAKER) (test 30.2 pg 25.7-32.2 ftjf=407) MEAN CORPUSCULAR HEMOGLOBIN CONC (BEAKER) (test 32.8 GM/DL 32.3-36.5 dqtm=987) RED CELL DISTRIBUTION WIDTH (BEAKER) (test 12.7 % 11.6-14.4 fbbs=241) PLATELET COUNT (BEAKER) (test lguu=067) 73 K/CU MM 150-450 MEAN PLATELET VOLUME (BEAKER) (test fxoa=415) 10.4 fL 9.4-12.4 NUCLEATED RED BLOOD CELLS (BEAKER) (test 0 /100 WBC 0-0 xukq=471) [id number] 11:06:00 Test Item Value Reference Range Comments RPR SCREEN (BEAKER) (test nsbx=047) Nonreactive Nonreactive URINALYSIS W/ [id number] 10:20:00 Test Item Value Reference Range Comments COLOR (BEAKER) (test mvaz=558) Yellow CLARITY (BEAKER) (test pvma=259) Cloudy SPECIFIC GRAVITY UA (BEAKER) (test kbcf=910) 1.021 1.001-1.035 PH UA (BEAKER) (test gsub=885) 5.5 5.0-8.0 PROTEIN UA (BEAKER) (test ernm=505) 50 mg/dL Negative GLUCOSE UA (BEAKER) (test eari=043) Negative Negative KETONES UA (BEAKER) (test golf=038) Negative Negative BILIRUBIN UA (BEAKER) (test jqee=676) Negative Negative BLOOD UA (BEAKER) (test gabh=210) Moderate Negative NITRITE UA (BEAKER) (test ozvk=057) Positive Negative LEUKOCYTE ESTERASE UA (BEAKER) (test eoyn=753) Large Negative UROBILINOGEN UA (BEAKER) (test hokv=805) 0.2 mg/dL 0.2-1.0 RBC UA (BEAKER) (test ietc=037) 877 /HPF WBC UA (BEAKER) (test thws=134) 186 /HPF MUCUS (BEAKER) (test jyhx=4878) Rare SQUAMOUS EPITHELIAL (BEAKER) (test frdd=541) 1 /HPF SOURCE(BEAKER) (test meii=1226) URINALYSIS W/ REFLEX URINE [id number] 10:19:00 Test Item Value Reference Range Comments COLOR (BEAKER) (test pkon=549) Yellow CLARITY (BEAKER) (test lvuw=972) Cloudy SPECIFIC GRAVITY UA (BEAKER) (test jqnv=395) 1.021 1.001-1.035 PH UA (BEAKER) (test gipk=610) 5.5 5.0-8.0 PROTEIN UA (BEAKER) (test clfq=262) 50 mg/dL Negative GLUCOSE UA (BEAKER) (test fujx=468) Negative Negative KETONES UA (BEAKER) (test qjrc=499) Negative Negative BILIRUBIN UA (BEAKER) (test khbf=378) Negative Negative BLOOD UA (BEAKER) (test rhpa=655) Moderate Negative NITRITE UA (BEAKER) (test uypd=086) Positive Negative LEUKOCYTE ESTERASE UA (BEAKER) (test qffe=517) Large Negative UROBILINOGEN UA (BEAKER) (test wpvq=927) 0.2 mg/dL 0.2-1.0 RBC UA (BEAKER) (test rjzp=599) 877 /HPF WBC UA (BEAKER) (test gvxs=778) 186 /HPF MUCUS (BEAKER) (test zugj=6264) Rare SQUAMOUS EPITHELIAL (BEAKER) (test gcva=435) 1 /HPF SOURCE(BEAKER) (test ljwp=5436) TROPONIN [id number] 09:07:00 Test Item Value Reference Range Comments TROPONIN I (BEAKER) (test pufr=160) 0.16 ng/mL 0.00-0.03 Troponin I (TnI) levels [...] acidosis, acute neurological disease, and persistent tachyarrhythmia.HEMOGLOBIN [id number] 09:01:00 Test Item Value Reference Range Comments HEMOGLOBIN A1C (BEAKER) (test ebiy=554) 5.6 % 4.3-6.1 LACTIC ACID, [id number] 08:58:00 Test Item Value Reference Range Comments LACTATE BLOOD VENOUS (2) (BEAKER) (test 1.1 mmol/L 0.5-2.2 ccgd=4841) RAD, CHEST, 1 VIEW, NON [id number] 08:35:00Reason for exam:->feverShould this be performed at [...] Gutierrez Verified Date/Time: 02/15/2019 08:35:46 Reading Location: [facility] Radiology Reading Room POCT-GLUCOSE [id number] 06:48:00 Test Item Value Reference Range Comments POC-GLUCOSE METER (BEAKER) 106 mg/dL 70-110 TESTED AT [facility] [address] (test sghl=1630) [facility] [address] VITAMIN B12 AND [id number] 06:29:00 Test Item Value Reference Range Comments VITAMIN B12 (BEAKER) (test pmgc=044) 343 pg/mL 213-816 FOLATE (BEAKER) (test kwvt=291) 15.9 ng/mL >=7.0 LACTIC ACID, [id number] 06:28:00 Test Item Value Reference Range Comments LACTATE BLOOD VENOUS (2) (BEAKER) (test 1.5 mmol/L 0.5-2.2 qnch=3624) [id number] 04:00:00 Test Item Value Reference Range Comments PROCALCITONIN (BEAKER) (test pnwz=6443) 0.37 ng/mL <0.05 SEPSIS RISK (ng/mL)Low: 0.05-0.50Intermediate: 0.51-2.00High: & gt;=2.01TSH/FREE T4 IF [id number] 03:55:00 Test Item Value Reference Range Comments THYROID STIMULATING HORMONE (BEAKER) (test 0.67 uIU/mL 0.35-4.94 lcnr=491) LACTIC ACID, [id number] 03:26:00 Test Item Value Reference Range Comments LACTATE BLOOD VENOUS (2) 0.8 mmol/L 0.5-2.2 Specimen slightly hemolyzed (BEAKER) (test phdc=6255) Specimen slightly ictericCBC W/PLT COUNT & AUTO [id number] 01:55 :00 Test Item Value Reference Range Comments WHITE BLOOD CELL COUNT (BEAKER) (test zaop=304) 12.7 K/ L 3.5-10.5 RED BLOOD CELL COUNT (BEAKER) (test dhbn=693) 3.98 M/ L 4.63-6.08 HEMOGLOBIN (BEAKER) (test pwdx=146) 12.1 GM/DL 13.7-17.5 HEMATOCRIT (BEAKER) (test oalv=964) 36.7 % 40.1-51.0 MEAN CORPUSCULAR VOLUME (BEAKER) (test lsux=490) 92.2 fL 79.0-92.2 MEAN CORPUSCULAR HEMOGLOBIN (BEAKER) (test 30.4 pg 25.7-32.2 ygwd=334) MEAN CORPUSCULAR HEMOGLOBIN CONC (BEAKER) (test 33.0 GM/DL 32.3-36.5 zcmh=310) RED CELL DISTRIBUTION WIDTH (BEAKER) (test 12.7 % 11.6-14.4 tbnt=443) PLATELET COUNT (BEAKER) (test zuae=106) 75 K/CU MM 150-450 MEAN PLATELET VOLUME (BEAKER) (test mqhk=858) 9.9 fL 9.4-12.4 NUCLEATED RED BLOOD CELLS (BEAKER) (test 0 /100 WBC 0-0 okjg=348) (CELLAVISION MANUAL DIFF)2019-02-15 01:55:00 Test Item Value Reference Range Comments NEUTROPHILS - REL (CELLAVISION)(BEAKER) (test 65 % igpj=1166) LYMPHOCYTES - REL (CELLAVISION)(BEAKER) (test 20 % sdwp=3519) MONOCYTES - REL (CELLAVISION)(BEAKER) (test 10 % bnuj=7809) EOSINOPHILS - REL (CELLAVISION)(BEAKER) (test 1 % aycb=1497) BASOPHILS - REL (CELLAVISION)(BEAKER) (test 1 % cmha=6671) BANDS - REL (CELLAVISION)(BEAKER) (test 3 % 0-10 qvzq=1343) NEUTROPHILS - ABS (CELLAVISION)(BEAKER) (test 8.26 K/ul 1.78-5.38 jeib=2875) LYMPHOCYTES - ABS (CELLAVISION)(BEAKER) (test 2.54 K/ul 1.32-3.57 gzhn=2657) MONOCYTES - ABS (CELLAVISION)(BEAKER) (test 1.27 K/uL 0.30-0.82 zbbf=8754) EOSINOPHILS - ABS (CELLAVISION)(BEAKER) (test 0.13 K/uL 0.04-0.54 sihn=3798) BASOPHILS - ABS (CELLAVISION)(BEAKER) (test 0.13 K/uL 0.01-0.08 pbcs=0763) BANDS - ABS (CELLAVISION)(BEAKER) (test 0.38 K/uL 0.00-0.80 slgn=6610) TOTAL COUNTED (BEAKER) (test cfpy=4227) 100 PLT MORPHOLOGY (BEAKER) (test bdbd=292) Normal SMUDGE CELLS (BEAKER) (test nmhn=2021) Present ANISOCYTOSIS (BEAKER) (test rbpv=222) 1+ few MICROCYTES (BEAKER) (test cyjg=618) 1+ few POIKILOCYTES (BEAKER) (test wmcp=216) 2+ moderate SPHEROCYTES (BEAKER) (test blzw=310) 2+ moderate OVALOCYTES (BEAKER) (test hzns=354) 2+ moderate TEAR DROP CELLS (BEAKER) (test ddro=042) 2+ moderate PLATELET CONCENTRATION (CELLAVISION)(BEAKER) Decreased (test gkmn=2614) Received comment: User comments: Slide comments:TROPONIN [id number] 01:42:00 Test Item Value Reference Range Comments TROPONIN I (BEAKER) (test ekta=749) 0.19 ng/mL 0.00-0.03 Troponin I (TnI) levels [...] acute neurological disease, and persistent tachyarrhythmia.BASIC METABOLIC [id number] 01:22:00 Test Item Value Reference Range Comments SODIUM (BEAKER) (test 139 meq/L 136-145 kobd=996) POTASSIUM (BEAKER) (test 3.6 meq/L 3.5-5.1 lwex=564) CHLORIDE (BEAKER) (test 104 meq/L 98-107 xgjd=119) CO2 (BEAKER) (test 25 meq/L 22-29 qfoz=264) BLOOD UREA NITROGEN 15 mg/dL 7-21 (BEAKER) (test rikm=891) CREATININE (BEAKER) (test 1.16 mg/dL 0.57-1.25 nenm=512) GLUCOSE RANDOM (BEAKER) 99 mg/dL 70-105 (test wyky=801) CALCIUM (BEAKER) (test 9.1 mg/dL 8.4-10.2 olgu=750) EGFR (BEAKER) (test 66 mL/min/1.73 sq m ESTIMATED GFR IS NOT zsnb=9769) ACCURATE CREATININE CLEARANCE IN PREDICTING GLOMERULAR FILTRATION RATE. ESTIMATED GFR IS NOT APPLICABLE FOR DIALYSIS PATIENTS. Specimen slightly ictericLIPID [id number] 01:22:00 Test Item Value Reference Range Comments TRIGLYCERIDES (BEAKER) (test ycsu=661) 119 mg/dL CHOLESTEROL (BEAKER) (test zkzw=183) 115 mg/dL HDL CHOLESTEROL (BEAKER) (test yaxn=364) 42 mg/dL LDL CHOLESTEROL CALCULATED (BEAKER) (test 49 mg/dL alez=147) Triglyceride Reference Range: Low Risk <150 Borderline 150- 199 High Risk 200-499 Very High Risk >=500Cholesterol Reference Range: Low Risk <200 Borderline 200-239 High Risk > 240HDL Cholesterol Reference Range: Low Risk >=60 High Risk <40LDL Cholesterol Reference Range: Optimal <100 Near Optimal 100-129 Borderline 130-159 High 160-189 Very High >=190 Specimen slightly ictericHEPATIC FUNCTION [id number] 01:22: 00 Test Item Value Reference Range Comments TOTAL PROTEIN (BEAKER) (test frzv=771) 7.2 gm/dL 6.0-8.3 ALBUMIN (BEAKER) (test onfx=4671) 4.1 g/dL 3.5-5.0 BILIRUBIN TOTAL (BEAKER) (test file=305) 2.2 mg/dL 0.2-1.2 BILIRUBIN DIRECT (BEAKER) (test sjzm=283) 0.8 mg/dL 0.1-0.5 ALKALINE PHOSPHATASE (BEAKER) (test sguf=720) 109 U/L 40-150 AST (SGOT) (BEAKER) (test pkgm=399) 23 U/L 5-34 ALT (SGPT) (BEAKER) (test eybf=391) 20 U/L 6-55 Specimen slightly ictericRAD, CHEST, PA OR AP, 1 [id number] 18:34:00Reason for exam:->chest painShould this be performed [...] Verified Date/ Time: 02/14/2019 18:34:55 Reading Location: [facility] C0[facility] Consult Reading Room TROPONIN [id number] 18:31:00 Test Item Value Reference Range Comments TROPONIN I (BEAKER) (test gdze=480) 0.13 ng/mL 0.00-0.03 Troponin I (TnI) levels [...] acute neurological disease, and persistent tachyarrhythmia.BASIC METABOLIC [id number] 18:23:00 Test Item Value Reference Range Comments SODIUM (BEAKER) (test 134 meq/L 136-145 wqiz=327) POTASSIUM (BEAKER) (test 3.2 meq/L 3.5-5.1 wdqk=571) CHLORIDE (BEAKER) (test 103 meq/L 98-107 fjpd=073) CO2 (BEAKER) (test 24 meq/L 22-29 lwop=758) BLOOD UREA NITROGEN 16 mg/dL 7-21 (BEAKER) (test cjmk=576) CREATININE (BEAKER) (test 1.15 mg/dL 0.57-1.25 zjxw=536) GLUCOSE RANDOM (BEAKER) 127 mg/dL 70-105 (test rkuv=140) CALCIUM (BEAKER) (test 8.7 mg/dL 8.4-10.2 ejqo=208) EGFR (BEAKER) (test 67 mL/min/1.73 sq m ESTIMATED GFR IS NOT dzev=6874) ACCURATE CREATININE CLEARANCE IN PREDICTING GLOMERULAR FILTRATION RATE. ESTIMATED GFR IS NOT APPLICABLE FOR DIALYSIS PATIENTS. PT/[id number] 18:15:00 Test Item Value Reference Range Comments PROTIME (BEAKER) (test vgpd=243) 16.4 seconds 11.9-14.2 INR (BEAKER) (test gnnc=395) 1.4 <=5.9 PARTIAL THROMBOPLASTIN TIME (BEAKER) (test 29.6 seconds 22.5-36.0 ppbz=977) Effective 12/06/2018: PT Reference Range ChangeNew: 11.9-14.2 Previous: 11.7- 14.7RECOMMENDED COUMADIN/WARFARIN INR THERAPY RANGESSTANDARD DOSE: 2.0-3.0 Includes: PROPHYLAXIS for venous thrombosis, systemic embolization; TREATMENT for venous thrombosis and/or pulmonary embolus.HIGH RISK: Target INR is2.5-3.5 for patients wiht mechanical heart valves.CT, CTANGIO [id number] 18:14: 00Reason for exam:->l hpFINAL REPORT CT, [...] arteries: Normal contrast opacification of the bilateral MATERIALS CLERK P1-P2 branches. Venous opacification: Major dural sinuses [...] MDReport Verified Date/Time: 02/14/2019 18:14:44 Reading Location: [facility] C0[facility] Neuro Reading Room CT, CAROTID, [id number] 18:14:00Reason for exam:->Ischemic Stroke EvaluationFINAL REPORT CT, [...] arteries: Normal contrast opacification of the bilateral MATERIALS CLERK P1-P2 branches. Venous opacification: Major dural sinuses [...] MDReport Verified Date/Time: 02/14/2019 18:14:44 Reading Location: [facility] C013V Neuro Reading Room CBC W/PLT COUNT & AUTO [id number] 18:07:00 Test Item Value Reference Range Comments WHITE BLOOD CELL COUNT (BEAKER) (test egll=239) 12.2 K/ L 3.5-10.5 RED BLOOD CELL COUNT (BEAKER) (test jzer=882) 3.71 M/ L 4.63-6.08 HEMOGLOBIN (BEAKER) (test zrpr=447) 11.3 GM/DL 13.7-17.5 HEMATOCRIT (BEAKER) (test yiwh=275) 33.9 % 40.1-51.0 MEAN CORPUSCULAR VOLUME (BEAKER) (test hllj=286) 91.4 fL 79.0-92.2 MEAN CORPUSCULAR HEMOGLOBIN (BEAKER) (test 30.5 pg 25.7-32.2 ttms=237) MEAN CORPUSCULAR HEMOGLOBIN CONC (BEAKER) (test 33.3 GM/DL 32.3-36.5 fhml=244) RED CELL DISTRIBUTION WIDTH (BEAKER) (test 12.8 % 11.6-14.4 wdnh=357) PLATELET COUNT (BEAKER) (test xnxx=276) 89 K/CU MM 150-450 MEAN PLATELET VOLUME (BEAKER) (test dnjt=703) 9.9 fL 9.4-12.4 NUCLEATED RED BLOOD CELLS (BEAKER) (test 0 /100 WBC 0-0 gxpr=256) NEUTROPHILS RELATIVE PERCENT (BEAKER) (test 81 % uufk=315) LYMPHOCYTES RELATIVE PERCENT (BEAKER) (test 8 % ogom=081) MONOCYTES RELATIVE PERCENT (BEAKER) (test 10 % xpcx=517) EOSINOPHILS RELATIVE PERCENT (BEAKER) (test 0 % gnwi=303) BASOPHILS RELATIVE PERCENT (BEAKER) (test 0 % evik=936) NEUTROPHILS ABSOLUTE COUNT (BEAKER) (test 9.89 K/ L 1.78-5.38 epxp=520) LYMPHOCYTES ABSOLUTE COUNT (BEAKER) (test 1.02 K/ L 1.32-3.57 dslb=302) MONOCYTES ABSOLUTE COUNT (BEAKER) (test taav=373) 1.21 K/ L 0.30-0.82 EOSINOPHILS ABSOLUTE COUNT (BEAKER) (test 0.02 K/ L 0.04-0.54 rfpd=920) BASOPHILS ABSOLUTE COUNT (BEAKER) (test qxqc=968) 0.05 K/ L 0.01-0.08 IMMATURE GRANULOCYTES-RELATIVE PERCENT (BEAKER) 0 % 0-1 (test zzap=1403) POCT-GLUCOSE [id number] 18:04:00 Test Item Value Reference Range Comments POC-GLUCOSE METER (MARCIE) 133 mg/dL 70-110 TESTED AT [facility] [address] (test viqb=8010) [facility] [address] CT, BRAIN/STROKE [id number] 17:41:00Reason for exam:->strokeWhat is the patient's sedation [...] MDReport Verified Date/Time: 02/14/2019 17:41:18 Reading Location: [address] Neuro Reading Room Electronically signed by: GIA STATON MD on 05:41 PMCT, CHEST, WITH IV [id number] 09:03:00FINAL REPORT CT CHEST, ABDOMEN, AND PELVIS WITH CONTRAST HISTORY: Malignant neoplasm of urinary bladder, bladder cancer status post NAC and radical cystectomy, RPLND and LwasvgO54.9 COMPARISON: CT of the chest, abdomen and [...] by: JORDAN CONWAY on 02/2019 09:03 AMCT, [id number] 09:03:00FINAL REPORT CT CHEST, ABDOMEN, AND PELVIS WITH CONTRAST HISTORY: Malignant neoplasm of urinary bladder, bladder cancer status post NAC and radical cystectomy, RPLND and ScmovoO77.9 COMPARISON: CT of the chest, abdomen and [...] locally recurrent or metastatic disease.Signed: Jordan Conway Verified Date/Time : 11/15/2018 09:03:01 Electronically signed by: JORDAN CONWAY on 02/2019 09:03 [id number] 16:32:00 Test Item Value Reference Range Comments POC-CREATININE (BEAKER) 1.3 mg/dL 0.6-1.3 TESTED AT [facility] 7200 (test tlhj=7897) [facility] [address] POC-EGFR (BEAKER) (test 58 mL/min/1.73M2 cphu=5409) TISSUE [id number] 16:33:00Surgical Pathology Report Case: [id number] Authorizing Provider: Danny Swanson MD Collected: 01/02/201844 [...] PATHOLOGIC DIAGNOSIS Signing Pathologist Direct Phone Line: [phone] Preliminary result electronically signed by Abdulaziz Daniels [...] (pT): pT0 Regional Lymph Nodes (pN): pN3 95233, 75925 X 9, 04894 X 4, 09638 X 11Bladder cancerA. Pelvic lymph nodes, para- [...] Black-right bladder and prostate, blue-left bladder and prostate.[place] sections are submitted as follows: R1, left ureter resection margin; R2, right ureter resection margin; R3, left ureteral orifice; R4, right ureteral orifice; R5, left ureter high school admissions representative sections; R6,right ureter high school admissions representative sections; R7 -R23, left lateral bladder wall scar, end submitted; R24, R25, right lateral wall high school admissions representative sections; R26, R27, high school admissions representative sections of posterior wall; R28, R29, high school admissions representative sections of bladder dome; R30, high school admissions representative section of trigone; R31, high school admissions representative section of anterior wall; R32, prostate apex; R33-37, prostate from apex to base; R38, seminal vesicles. DD/ewS. Labeled "small bowel resection" consists of a segment of small bowel measuring 3cm in length x 1.5 cm in diameter. The specimen is grossly unremarkable. Section code: S1, resectionmargin en face; S2, random section of small bowel. CG /plFROZEN SECTION DIAGNOSIS:[id number]: DISTAL PARA-AORTIC LYMPH NODE, EXCISION: - TUMOR PRESENT IN LYMPH NODE - REPORTED BY DR. ARTHUR TO DR. SWANSON AT 10:20 [id number]: LYMPH NODE, PROXIMAL LIMIT OF DISSECTION PARAORTA, EXCISION: - TUMOR PRESENT IN ONE OF TWO LYMPH NODES - REPORTED BY DR. ARTHUR TO DR. SWANSON AT 11:45 AMP1FS: URETER, RIGHT DISTAL, EXCISION OF MARGIN: - NEGATIVE FOR HIGH GRADE DYSPLASIA OR CARCINOMA - REPORTED BY DR. ARTHUR TODR. SWANSON AT 11:45 AMQ1FS: URETER, LEFT DISTAL, EXCISION OF MARGIN: - NEGATIVE FOR HIGH GRADE DYSPLASIA OR CARCINOMA - REPORTED BY DR. ARTHUR TO DR. SWANSON AT 11:45 AM Performed.URINE [id number] 12:19:00 Test Item Value Reference Range Comments CULTURE (BEAKER) (test ENTEROCOCCUS SPECIES >100,000 col/mL ccbn=7278) Enterococcus species Ampicillin (test code=26) Linezolid (test code=40) Nitrofurantoin (test code=23) Tetracycline (test code=2) Vancomycin (test code=13) [id number] 08:23:00 Test Item Value Reference Range Comments PHOSPHORUS (BEAKER) (test uijh=296) 3.0 mg/dL 2.3-4.7 Before arterial line is [id number] 08:23:00 Test Item Value Reference Range Comments MAGNESIUM (BEAKER) (test wyns=831) 1.6 mg/dL 1.6-2.6 Before arterial line is discontinuedBASIC METABOLIC [id number] 08:23:00 Test Item Value Reference Range Comments SODIUM (BEAKER) (test 139 meq/L 136-145 dkhl=282) POTASSIUM (BEAKER) (test 3.5 meq/L 3.5-5.1 nvkn=104) CHLORIDE (BEAKER) (test 106 meq/L 98-107 phme=351) CO2 (BEAKER) (test 26 meq/L 22-29 bvhq=894) BLOOD UREA NITROGEN 9 mg/dL 7-21 (BEAKER) (test xxvj=160) CREATININE (BEAKER) (test 0.85 mg/dL 0.57-1.25 vkzn=031) GLUCOSE RANDOM (BEAKER) 97 mg/dL 70-105 (test eams=258) CALCIUM (BEAKER) (test 8.4 mg/dL 8.4-10.2 yusc=302) EGFR (BEAKER) (test 95 mL/min/1.73 sq m ESTIMATED GFR IS NOT gvtd=8672) ACCURATE CREATININE CLEARANCE IN PREDICTING GLOMERULAR FILTRATION RATE. ESTIMATED GFR IS NOT APPLICABLE FOR DIALYSIS PATIENTS. Before arterial line is discontinuedHEMOGLOBIN AND [id number] 07:53:00 Test Item Value Reference Range Comments HEMOGLOBIN (BEAKER) (test llua=317) 8.3 GM/DL 13.7-17.5 HEMATOCRIT (BEAKER) (test dmtf=666) 25.5 % 40.1-51.0 [id number] 07:53:00 Test Item Value Reference Range Comments PHOSPHORUS (BEAKER) (test qgio=115) 3.0 mg/dL 2.3-4.7 Before arterial line is [id number] 07:53:00 Test Item Value Reference Range Comments MAGNESIUM (BEAKER) (test tjju=025) 1.6 mg/dL 1.6-2.6 Before arterial line is discontinuedBASIC METABOLIC [id number] 07:53:00 Test Item Value Reference Range Comments SODIUM (BEAKER) (test 135 meq/L 136-145 ckhg=502) POTASSIUM (BEAKER) (test 3.9 meq/L 3.5-5.1 pfds=701) CHLORIDE (BEAKER) (test 109 meq/L 98-107 bphg=162) CO2 (BEAKER) (test 20 meq/L 22-29 qffi=793) BLOOD UREA NITROGEN 12 mg/dL 7-21 (BEAKER) (test nect=235) CREATININE (BEAKER) (test 0.88 mg/dL 0.57-1.25 wnoj=459) GLUCOSE RANDOM (BEAKER) 94 mg/dL 70-105 (test epaa=838) CALCIUM (BEAKER) (test 8.2 mg/dL 8.4-10.2 whsc=062) EGFR (BEAKER) (test 91 mL/min/1.73 sq m ESTIMATED GFR IS NOT sgrm=7663) ACCURATE CREATININE CLEARANCE IN PREDICTING GLOMERULAR FILTRATION RATE. ESTIMATED GFR IS NOT APPLICABLE FOR DIALYSIS PATIENTS. Before arterial line is discontinuedHEMOGLOBIN AND [id number] 06:12:00 Test Item Value Reference Range Comments HEMOGLOBIN (BEAKER) (test frmp=080) 7.6 GM/DL 13.7-17.5 HEMATOCRIT (BEAKER) (test djkj=666) 23.7 % 40.1-51.0 [id number] 05:44:00 Test Item Value Reference Range Comments PHOSPHORUS (BEAKER) (test xxgw=085) 3.0 mg/dL 2.3-4.7 Before arterial line is [id number] 05:44:00 Test Item Value Reference Range Comments MAGNESIUM (BEAKER) (test prvt=076) 1.6 mg/dL 1.6-2.6 Before arterial line is discontinuedBASIC METABOLIC [id number] 05:44:00 Test Item Value Reference Range Comments SODIUM (BEAKER) (test 138 meq/L 136-145 iblm=706) POTASSIUM (BEAKER) (test 4.1 meq/L 3.5-5.1 orzv=400) CHLORIDE (BEAKER) (test 109 meq/L 98-107 pggs=163) CO2 (BEAKER) (test 21 meq/L 22-29 ashm=840) BLOOD UREA NITROGEN 19 mg/dL 7-21 (BEAKER) (test qtrg=881) CREATININE (BEAKER) (test 1.12 mg/dL 0.57-1.25 sjzi=920) GLUCOSE RANDOM (BEAKER) 107 mg/dL 70-105 (test qbur=924) CALCIUM (BEAKER) (test 8.3 mg/dL 8.4-10.2 gwan=983) EGFR (BEAKER) (test 69 mL/min/1.73 sq m ESTIMATED GFR IS NOT mibk=9271) ACCURATE CREATININE CLEARANCE IN PREDICTING GLOMERULAR FILTRATION RATE. ESTIMATED GFR IS NOT APPLICABLE FOR DIALYSIS PATIENTS. Before arterial line is discontinuedHEMOGLOBIN AND [id number] 05:07:00 Test Item Value Reference Range Comments HEMOGLOBIN (BEAKER) (test abkj=883) 7.6 GM/DL 13.7-17.5 HEMATOCRIT (BEAKER) (test wsqa=127) 23.4 % 40.1-51.0 [id number] 06:36:00 Test Item Value Reference Range Comments MAGNESIUM (BEAKER) (test pdxl=856) 2.1 mg/dL 1.6-2.6 Before arterial line is discontinuedBASIC METABOLIC [id number] 06:36:00 Test Item Value Reference Range Comments SODIUM (BEAKER) (test 134 meq/L 136-145 jpqv=590) POTASSIUM (BEAKER) (test 4.9 meq/L 3.5-5.1 qvsv=105) CHLORIDE (BEAKER) (test 107 meq/L 98-107 wzhk=984) CO2 (BEAKER) (test 21 meq/L 22-29 pnce=672) BLOOD UREA NITROGEN 26 mg/dL 7-21 (BEAKER) (test mejm=015) CREATININE (BEAKER) (test 1.36 mg/dL 0.57-1.25 pdlr=541) GLUCOSE RANDOM (BEAKER) 113 mg/dL 70-105 (test gqxd=359) CALCIUM (BEAKER) (test 8.2 mg/dL 8.4-10.2 suah=174) EGFR (BEAKER) (test 55 mL/min/1.73 sq m ESTIMATED GFR IS NOT ykpg=0535) ACCURATE CREATININE CLEARANCE IN PREDICTING GLOMERULAR FILTRATION RATE. ESTIMATED GFR IS NOT APPLICABLE FOR DIALYSIS PATIENTS. Before arterial line is [id number] 06:36:00 Test Item Value Reference Range Comments PHOSPHORUS (BEAKER) (test focj=220) 3.3 mg/dL 2.3-4.7 HEMOGLOBIN AND [id number] 06:16:00 Test Item Value Reference Range Comments HEMOGLOBIN (BEAKER) (test eaei=191) 7.9 GM/DL 13.7-17.5 HEMATOCRIT (BEAKER) (test htil=313) 24.4 % 40.1-51.0 [id number] 06:27:00 Test Item Value Reference Range Comments PHOSPHORUS (BEAKER) (test wtux=164) 3.4 mg/dL 2.3-4.7 Before arterial line is [id number] 06:27:00 Test Item Value Reference Range Comments MAGNESIUM (BEAKER) (test ugnx=837) 2.3 mg/dL 1.6-2.6 Before arterial line is discontinuedBASIC METABOLIC [id number] 06:27:00 Test Item Value Reference Range Comments SODIUM (BEAKER) (test 134 meq/L 136-145 mvmm=672) POTASSIUM (BEAKER) (test 5.6 meq/L 3.5-5.1 dvkc=716) CHLORIDE (BEAKER) (test 108 meq/L 98-107 qdab=054) CO2 (BEAKER) (test 19 meq/L 22-29 ltdf=930) BLOOD UREA NITROGEN 27 mg/dL 7-21 (BEAKER) (test ruwq=555) CREATININE (BEAKER) (test 1.62 mg/dL 0.57-1.25 mvwn=890) GLUCOSE RANDOM (BEAKER) 155 mg/dL 70-105 (test yeis=601) CALCIUM (BEAKER) (test 8.6 mg/dL 8.4-10.2 qyse=208) EGFR (BEAKER) (test 45 mL/min/1.73 sq m ESTIMATED GFR IS NOT mgqi=7324) ACCURATE CREATININE CLEARANCE IN PREDICTING GLOMERULAR FILTRATION RATE. ESTIMATED GFR IS NOT APPLICABLE FOR DIALYSIS PATIENTS. Before arterial line is discontinuedHEMOGLOBIN AND [id number] 06:12:00 Test Item Value Reference Range Comments HEMOGLOBIN (BEAKER) (test chig=256) 8.7 GM/DL 13.7-17.5 HEMATOCRIT (BEAKER) (test ucny=610) 26.1 % 40.1-51.0 BASIC METABOLIC [id number] 16:59:00 Test Item Value Reference Range Comments SODIUM (BEAKER) (test 137 meq/L 136-145 hhos=131) POTASSIUM (BEAKER) (test 5.0 meq/L 3.5-5.1 sria=023) CHLORIDE (BEAKER) (test 110 meq/L 98-107 nnhi=180) CO2 (BEAKER) (test 17 meq/L 22-29 imjw=347) BLOOD UREA NITROGEN 18 mg/dL 7-21 (BEAKER) (test supz=918) CREATININE (BEAKER) (test 1.22 mg/dL 0.57-1.25 qtvz=696) GLUCOSE RANDOM (BEAKER) 156 mg/dL 70-105 (test krgy=845) CALCIUM (BEAKER) (test 8.6 mg/dL 8.4-10.2 kusl=190) EGFR (BEAKER) (test 63 mL/min/1.73 sq m ESTIMATED GFR IS NOT esgn=2501) ACCURATE CREATININE CLEARANCE IN PREDICTING GLOMERULAR FILTRATION RATE. ESTIMATED GFR IS NOT APPLICABLE FOR DIALYSIS PATIENTS. [facility] [id number] 16:13:00 Test Item Value Reference Range Comments HEMOGLOBIN (BEAKER) (test nqna=263) 8.5 GM/DL 13.7-17.5 HEMATOCRIT (BEAKER) (test wxnp=960) 25.5 % 40.1-51.0 SODIUM NA-STAT [id number] 13:04:00 Test Item Value Reference Range Comments SODIUM (BEAKER) (test vyst=176) 137 meq/L 135-148 POTASSIUM-STAT [id number] 13:04:00 Test Item Value Reference Range Comments POTASSIUM (BEAKER) (test cmje=665) 4.1 meq/L 3.6-5.5 CALCIUM, [id number] 13:04:00 Test Item Value Reference Range Comments CALCIUM IONIZED (BEAKER) (test ebzz=582) 1.08 mmol/L 1.12-1.27 PH, BLOOD (BEAKER) (test hbie=3638) 7.39 BLOOD GAS, [id number] 13:04:00 Test Item Value Reference Range Comments PH ARTERIAL (BEAKER) (test pxgq=407) 7.39 7.35-7.45 PCO2 ARTERIAL (BEAKER) (test qthc=285) 36 mmHg 35-45 PO2 ARTERIAL (BEAKER) (test ybju=706) 241 mmHg 80-90 O2 SATURATION ARTERIAL (BEAKER) (test oyjx=334) 99.5 % 96.0-97.0 HCO3 ARTERIAL (BEAKER) (test tlcx=890) 21 mmol/L 21-29 BASE EXCESS ARTERIAL (BEAKER) (test yxfp=552) -3.2 mmol/L -2.0-3.0 PATIENT TEMPERATURE (BEAKER) (test fzez=9023) 37.0 C FIO2 (BEAKER) (test tmag=5653) 100.0 % GLUCOSE-STAT [id number] 13:04:00 Test Item Value Reference Range Comments GLUCOSE RANDOM (BEAKER) (test gita=835) 121 mg/dL 70-110 HGB/HCT (H&H) - STAT [id number] 13:04:00 Test Item Value Reference Range Comments HEMOGLOBIN (BEAKER) (test yult=209) 7.7 g/dL 13.0-16.8 HEMATOCRIT (BEAKER) (test mnga=598) 23.0 % 40.0-50.0 BASIC METABOLIC [id number] 08:07:00 Test Item Value Reference Range Comments SODIUM (BEAKER) (test 138 meq/L 136-145 diuu=677) POTASSIUM (BEAKER) (test 3.9 meq/L 3.5-5.1 Specimen slightly vntz=484) hemolyzed CHLORIDE (BEAKER) (test 102 meq/L 98-107 jiaw=984) CO2 (BEAKER) (test 26 meq/L 22-29 pkwo=711) BLOOD UREA NITROGEN 17 mg/dL 7-21 (BEAKER) (test yjmp=415) CREATININE (BEAKER) (test 1.00 mg/dL 0.57-1.25 Specimen slightly lxfm=907) hemolyzed GLUCOSE RANDOM (BEAKER) 100 mg/dL 70-105 (test wjhw=919) CALCIUM (BEAKER) (test 9.3 mg/dL 8.4-10.2 jfiy=219) EGFR (BEAKER) (test 79 mL/min/1.73 sq m ESTIMATED GFR IS NOT kvao=2207) ACCURATE CREATININE CLEARANCE IN PREDICTING GLOMERULAR FILTRATION RATE. ESTIMATED GFR IS NOT APPLICABLE FOR DIALYSIS PATIENTS. [id number] 07:18:00 Test Item Value Reference Range Comments HEMOGLOBIN (BEAKER) (test evqv=658) 11.3 GM/DL 13.7-17.5 Check DOSANG, CV ACCESS, [id number] 13:27:00Reason for Exam:->Malgnant neoplasm of urinary bladder, [...] the patient's medical record by the nurse. Career Resource Specialist: Daniel Ty MD Public Policy Coordinator: None. Approach: Right internal jugular vein Estimated [...] needle into the right atrium. A 4 [place] micropuncture sheath was placed. A subcutaneous tunnel and pocket were created in the right anterior chest wall by blunt dissection. The pocket was flushed with antibiotic solution. A 6 [place] Bard single lumen power injectable port was [...] MDReport Verified Date/Time: 2017 13:27:04 Reading Location: [facility] P048 Angio Body Reading Room [id number] 09:22:00 Test Item Value Reference Range Comments PROTIME (BEAKER) (test fyww=681) 14.0 seconds 11.7-14.7 INR (BEAKER) (test qxrt=675) 1.1 <=5.9 PARTIAL THROMBOPLASTIN TIME (BEAKER) (test 28.1 seconds 22.5-36.0 hvfg=067) RECOMMENDED COUMADIN/WARFARIN INR THERAPY RANGESSTANDARD DOSE: 2.0 - 3.0 Includes: PROPHYLAXIS forvenous thrombosis, systemic embolization; TREATMENT for venous thrombosis and/or pulmonary embolus.HIGH RISK: Target INR is 2.5-3.5 for patients with mechanical heart valves.PLATELET [id number] 09:07:00 Test Item Value Reference Range Comments PLATELET COUNT (MARCIE) (test fwhu=960) 283 K/CU MM 150-450 PET/CT, WHOLE BODY [id number] 14:56:00Reason for Exam:->c67.9FINAL REPORT EXAMINATION: FDG-PET/CT, 08/03/2017 [...] feetAdditional imaging: NoneSerum blood glucose: 109CPT Code: 46143 FINDINGS:Head and Neck: Mild bernice activity is [...] with infection or inflammation. Signed: Hernán Joseph MDReport Verified Date/Time: 08/03/2017 14:56:22 02 :56 PMPOCT-GLUCOSE [id number] 09:20:00 Test Item Value Reference Range Comments POC-GLUCOSE METER (BEAKER) 109 mg/dL 70-110 TESTED AT [facility] [address] (test vtrc=4820) [facility] [address] TISSUE [id number] 14:18:00Surgical Pathology Report Case: [id number] Authorizing Provider: Danny Swanson MD Collected: 07/25/2017 [...] GRANULOMATOUS INFLAMMATION Signing Pathologist Direct Phone Line: [phone] signed by Abdulaziz Daniels MD on 07/26/2017 at 2:18 PMApproximately 20% of the tumor shows some degree of squamous differentiation and 1% shows a micropapillary pattern.77449, 19683Jwdtttt cancerA. Bladder tumor left lateral wall. B. [...] entirely submitted in cassette B1. DB/ewPerformed.URINALYSIS W/ [id number] 09: 23:00 Test Item Value Reference Range Comments COLOR (BEAKER) (test eolp=280) Yellow CLARITY (BEAKER) (test jgwx=986) Hazy SPECIFIC GRAVITY UA (BEAKER) (test 1.019 1.001-1.035 asir=000) PH UA (BEAKER) (test lnhn=843) 5.5 5.0-8.0 PROTEIN UA (BEAKER) (test xafs=737) 100 mg/dL Negative GLUCOSE UA (BEAKER) (test fyvl=091) Negative Negative KETONES UA (BEAKER) (test bewv=290) Negative Negative BILIRUBIN UA (BEAKER) (test mnyd=567) Negative Negative BLOOD UA (BEAKER) (test jmdi=506) Moderate Negative NITRITE UA (BEAKER) (test uuxv=424) Negative Negative LEUKOCYTE ESTERASE UA (BEAKER) (test Large Negative xjbb=791) UROBILINOGEN UA (BEAKER) (test gqfq=529) 2.0 mg/dL 0.2-1.0 RBC UA (BEAKER) (test zjdm=697) 27 /HPF WBC UA (BEAKER) (test yhqi=891) 155 /HPF MUCUS (BEAKER) (test fgxz=0722) Rare HYALINE CASTS (BEAKER) (test kaid=020) 1 /LPF SOURCE(BEAKER) (test tbae=4999) Urine, Clean Catch
[2019-07-26] MEDS ORDERED: NA CHLORIDE 0.9% 1,000 ML ONE (14:50)
[2019-07-26 15:00] LABS: Absolute Lymphocytes (CBC) 0.9 K/uL (0.7-4.9); Basophils % 1.3 % (0-1.3); Hematocrit 29.6 % (39.6-49.0); Lymphocytes % 10.7 % (15.3-44.8); MPV 7.2 fL (7.6-11.3); RBC Red Blood Cell Count 3.46 M/uL (4.33-5.43)
[2019-07-26 15:26] LABS: BUN Blood Urea Nitrogen 40 mg/dL (7-18); Bicarbonate 28 mmol/L (21-32); Glucose Level 109 mg/dL (74-106); Potassium 4.3 mmol/L (3.5-5.1); Sodium Level 141 mmol/L (136-145); Troponin (Emerg Dept Use Only) < 0.02 ng/mL (0.0-0.045)
[2019-07-26] MEDS ORDERED: NA CHLORIDE 0.9% 500 ML ONE (16:36)
--- NOTE | 2019-07-26 16:46 | RAD REPORT ---
EXAM DESCRIPTION: RAD - Chest Single View - 07/26/2019 4:39 pm CLINICAL HISTORY: Chest pain COMPARISON: June 2019 TECHNIQUE: AP portable chest image was obtained 1635 hours . FINDINGS: Lungs are clear. Heart and vasculature are normal. No measurable pleural effusion and no p neumothorax. Old rib trauma the noted upper left chest. Old traumatic changes to the scapula. These a re stable findings. No acute aortic findings suspected. IMPRESSION: No acute cardiopulmonary process.
--- NOTE | 2019-07-26 17:16 | ER ---
Nurse's Notes [facility] Name: Diaz Sadler Age: 53 yrs Sex: Male : 1965 Arrival Date: 07/26/2019 Time: 14:07 Bed 4 Private MD: Diagnosis: Chest pain, unspecified;Dehydration Presentation: 07/26 14:14 Presenting complaint: Patient states: Chest pain that began 2 hours ago while watching TV. Pt denies any relief after self medicating with Morphine 5 mg. EMS administered 81 mg ASA x 4 and Nitro SL x1 en route. Transition of care: patient was not received from another setting of care. Onset of symptoms was July 26, 2019. Risk Assessment: Do you want to hurt yourself or someone else? Patient reports no desire to harm self or others. Initial Sepsis Screen: Does the patient meet any 2 criteria? No. Patient's initial sepsis screen is negative. Does the patient have a suspected source of infection? No. Patient's initial sepsis screen is negative. Care prior to arrival: None. 14:14 Method Of Arrival: EMS: [facility] 14:14 Acuity: TERESA 3 ss Historical: - Allergies: 14:22 Codeine; itch; ss 14:22 HYDROCODONE; ss 14:22 PENICILLINS; ss - PMHx: 14:22 "heart infection"; Bladder CA; CVA; DVT- L upper thigh; Hypothyroidism; neuropathy; ss Prostate Cancer; TIA; - PSHx: 14:22 chrissy bladder; ss - Immunization history:: Adult Immunizations up to date. - Social history:: Smoking status: Patient/guardian denies using tobacco. - Ebola Screening: : Patient denies exposure to infectious person Patient denies travel to an Ebola-affected area in the 21 days before illness onset. - Family history:: not pertinent. - Hospitalizations: : No recent hospitalization is reported. Screenin:23 Abuse screen: Denies threats or abuse. Denies injuries from another. Nutritional sv screening: No deficits noted. Tuberculosis screening: No symptoms or risk factors identified. Fall Risk None identified. Assessment: 14:55 General: Appears in no apparent distress. uncomfortable, slender, Behavior is calm, sv cooperative, appropriate for age. Pain: Complains of pain in chest Pain does not radiate. Pain currently is 6 out of 10 on a pain scale. Quality of pain is described as aching, heavy, Pain began today Is intermittent. Neuro: Level of Consciousness is awake, alert, obeys commands, Oriented to person, place, time, situation, Moves all extremities. Cardiovascular: Patient's skin is warm and dry. Rhythm is sinus rhythm. Respiratory: Airway is patent Respiratory effort is even, unlabored, Respiratory pattern is regular, symmetrical. Derm: Skin is normal. 16:36 Reassessment: Patient appears in no apparent distress at this time. No changes from sv previously documented assessment. Patient and/or family updated on plan of care and expected duration. Pain level reassessed. Patient is alert, oriented x 3, equal unlabored respirations, skin warm/dry/pink. Vital Signs: 14:22 BP 112 / 86; Pulse 88; Resp 17; Weight 64.41 kg; Height 5 ft. 11 in. (180.34 cm); Pain ss 6/10; 14:54 Pulse Ox 99% on R/A; ss 14:55 Temp 97.7(O); sv 15:23 BP 111 / 85; Pulse 72; Resp 12; Pulse Ox 98% ; sv 16:15 BP 114 / 81; Pulse 67; Resp 15; Pulse Ox 99% ; sv 17:02 BP 112 / 44; Pulse 69; Resp 18; Pulse Ox 97% ; sv 14:22 Body Mass Index 19.80 (64.41 kg, 180.34 cm) ED Course: 14:07 Patient arrived in ED. em1 14:18 Stewart Mallory MD is Attending Physician. rn 14:19 EKG done, by senior technical writer. reviewed by Stewart Mallory MD. tc 14:20 Triage completed. ss 14:22 Arm band placed on right wrist. ss 14:48 Teressa Burleson, JESUS is Primary Nurse. sv 14:55 Patient maintains SpO2 saturation greater than 95% on room air. sv 14:55 Patient has correct armband on for positive identification. Placed in gown. Bed in low sv position. Call light in reach. Side rails up X2. Adult w/ patient. Report received from Rose Mary LEE. monitoring coordinator on. Pulse ox on. NIBP on. Door closed. Warm blanket given. Head of bed elevated. 14:56 Awaiting lab results. sv 15:10 Initial lab(s) drawn, by ED staff, sent to lab. sv 16:36 XRAY Chest (1 view) In Process Unspecified. EDMS 16:36 X-ray(s) taken. sv 17:03 Urine collected:. sv 17:35 No provider procedures requiring assistance completed. IV discontinued, intact, ss bleeding controlled, No redness/swelling at site. Pressure dressing applied. Administered Medications: 14:55 Drug: NS 0.9% 1000 ml Route: IV; Rate: 1000 ml; Site: left antecubital; sv 16:00 Follow up: Response: No adverse reaction; IV Status: Completed infusion; IV Intake: sv 1000ml 16:35 Drug: NS 0.9% 500 ml Route: IV; Rate: bolus; Site: left antecubital; sv 17:00 Follow up: Response: No adverse reaction; IV Status: Completed infusion; IV Intake: sv 500ml Intake: 16:00 IV: 1000ml; Total: 1000ml. sv 17:00 IV: 500ml; Total: 1500ml. sv Outcome: 17:15 Discharge ordered by . rn 17:35 Discharged to home via wheelchair, with family. ss 17:35 Condition: stable 17:35 Discharge instructions given to patient, family, Instructed on discharge instructions, follow up and referral plans. Demonstrated understanding of instructions, follow-up care. 17:35 Patient left the ED. ss Signatures: Dispatcher [employer] Teressa Kirby, RN Stewart Shay MD MD rn Martinez, Eric em1 Rose Mary Mathews RN RN ss Callis, Tiffany, promotions director EKG Ttc
--- NOTE | 2019-07-26 17:16 | EDPHYS ---
Physician Documentation [facility] Name: Diaz Sadler Age: 53 yrs Sex: Male : 1965 Arrival Date: 07/26/2019 Time: 14:07 Bed 4 Private MD: ED Physician Stewart Mallory HPI: 07/26 15:16 This 53 yrs old Male presents to ER via EMS with complaints of Chest Pain. rn 15:16 The patient or guardian reports chest pain that is located primarily in the chest rn diffusely. Onset: today. The pain does not radiate. The chest pain is described as aching, a heaviness. Modifying factors: The symptoms are alleviated by nothing. the symptoms are aggravated by nothing. Severity of pain: At its worst the pain was mild in the emergency department the pain is unchanged. The patient has experienced similar episodes in the past. The patient has been recently seen by a physician:. Reports called 911 because was having chest pain, dull and intermittent, has had before, has known mitral valve problem, is currently hospice care for metastatic bladder cancer, no fall or trauma, has IVC filter and on eliquis. not sure if they are going to do anymore therapy. . Historical: - Allergies: 14:22 Codeine; itch; ss 14:22 HYDROCODONE; ss 14:22 PENICILLINS; ss - PMHx: 14:22 "heart infection"; Bladder CA; CVA; DVT- L upper thigh; Hypothyroidism; neuropathy; ss Prostate Cancer; TIA; - PSHx: 14:22 chrissy bladder; ss - Immunization history:: Adult Immunizations up to date. - Social history:: Smoking status: Patient/guardian denies using tobacco. - Ebola Screening: : Patient denies exposure to infectious person Patient denies travel to an Ebola-affected area in the 21 days before illness onset. - Family history:: not pertinent. - Hospitalizations: : No recent hospitalization is reported. ROS: 15:16 Constitutional: Negative for fever, chills, + weight loss Eyes: Negative for injury, rn pain, redness, and discharge, Cardiovascular: + chest pain, neg for palpitations Respiratory: Negative for cough, wheezing Abdomen/GI: Negative for diarrhea, and constipation, MS/Extremity: Negative for injury and deformity, Skin: Negative for injury, rash, and discoloration, Neuro: + generalized weakness Exam: 14:55 ECG was reviewed by the Attending Physician. rn 15:22 Constitutional: Cachectic male, awake, follows all commands Head/Face: Normocephalic, rn atraumatic. ENT: dry MM, no stridor or swelling Cardiovascular: Regular rate and rhythm. No pulse deficits. Respiratory: No increased work of breathing, no retractions or nasal flaring. Abdomen/GI: scaphoid, no focal tenderness MS/ Extremity: Pulses equal, no cyanosis. Neuro: Awake and alert, GCS 15 Vital Signs: 14:22 BP 112 / 86; Pulse 88; Resp 17; Weight 64.41 kg; Height 5 ft. 11 in. (180.34 cm); Pain ss 6/10; 14:54 Pulse Ox 99% on R/A; ss 14:55 Temp 97.7(O); sv 15:23 BP 111 / 85; Pulse 72; Resp 12; Pulse Ox 98% ; sv 16:15 BP 114 / 81; Pulse 67; Resp 15; Pulse Ox 99% ; sv 17:02 BP 112 / 44; Pulse 69; Resp 18; Pulse Ox 97% ; sv 14:22 Body Mass Index 19.80 (64.41 kg, 180.34 cm) ss MDM: 14:18 Patient medically screened. rn 17:13 Differential diagnosis: acute pericarditis, chest wall pain, congestive heart failure rn costochondritis, esophagitis, gastritis, pericarditis, pleurisy, pneumonia, pneumothorax. Data reviewed: vital signs, nurses notes, lab test result(s), EKG, radiologic studies, plain films, and as a result, I will discharge patient. Counseling: I had a detailed discussion with the patient and/or guardian regarding: the historical points, exam findings, and any diagnostic results supporting the discharge/admit diagnosis, lab results, radiology results, the need for outpatient follow up, to return to the emergency department if symptoms worsen or persist or if there are any questions or concerns that arise at home. Response to treatment: the patient's symptoms have markedly improved after treatment, and as a result, I will discharge patient. Special discussion: I discussed with the patient/guardian in detail that at this point there is no indication for admission to the hospital. It is understood, however, that if the symptoms persist or worsen the patient needs to return immediately for re-evaluation. ED course: Neg trop and ecg, neg CXR, UA bloody but neg nitrate, afebrile. Has known valve problem, but needs to figure out what to do about his cancer with his oncologist. He prefers to go home given neg w/u, is better hydrated now after 1.5L NS and now making urine. Will dc home with oncology f/u and return precautions.. 07/26 14:40 Order name: Troponin (emerg Dept Use Only); Complete Time: 16:25 rn 07/26 14:40 Order name: CBC with Diff; Complete Time: 16:25 rn 07/26 14:40 Order name: Basic Metabolic Panel; Complete Time: 16:25 rn 07/26 14:40 Order name: Urine Microscopic Only rn 07/26 17:13 Order name: Urine Dipstick--Ancillary (enter results) em1 07/26 17:14 Order name: Urine Dipstick-Ancillary EDWY 07/26 14:40 Order name: IV Start; Complete Time: 14:45 rn 07/26 14:40 Order name: EKG; Complete Time: 14:41 rn 07/26 14:40 Order name: EKG - Nurse/Tech; Complete Time: 14:45 rn 07/26 14:40 Order name: Urine Dipstick-Ancillary (obtain specimen); Complete Time: 17:03 rn 07/26 16:26 Order name: XRAY Chest (1 view); Complete Time: 16:55 rn 07/26 17:25 Order name: Urine Culture EDMS EC:55 Rate is 87 beats/min. Rhythm is regular. QRS [place] is Normal. MT interval is normal. QRS rn interval is normal. QT interval is normal. No Q waves. T waves are Normal. No ST changes noted. Clinical impression: Normal ECG. Interpreted by me. Reviewed by me. Administered Medications: 14:55 Drug: NS 0.9% 1000 ml Route: IV; Rate: 1000 ml; Site: left antecubital; sv 16:00 Follow up: Response: No adverse reaction; IV Status: Completed infusion; IV Intake: sv 1000ml 16:35 Drug: NS 0.9% 500 ml Route: IV; Rate: bolus; Site: left antecubital; sv 17:00 Follow up: Response: No adverse reaction; IV Status: Completed infusion; IV Intake: sv 500ml Disposition: 07/26/19 17:15 Discharged to Home. Impression: Chest pain, unspecified, Dehydration. - Condition is Stable. - Discharge Instructions: Nonspecific Chest Pain, Dehydration, Adult. - Medication Reconciliation Form, Thank You Letter, Antibiotic Education, Prescription Opioid Use form. - Follow up: Private Physician; When: 2 - 3 days; Reason: Recheck today's complaints, Re-evaluation by your physician. - Problem is new. - Symptoms have improved. Signatures: Dispatcher [employer] Teressa Kirby RN RN sv Nieto, Roman, MD MD rn Smirch, Shelby, RN RN ss Corrections: (The following items were deleted from the chart) 17:35 17:15 07/26/2019 17:15 Discharged to Home. Impression: Chest pain, unspecified; ss Dehydration. Condition is Stable. Forms are Medication Reconciliation Form, Thank You Letter, Antibiotic Education, Prescription Opioid Use. Follow up: Private Physician; When: 2 - 3 days; Reason: Recheck today's complaints, Re-evaluation by your physician. Problem is new. Symptoms have improved. rn
[2019-07-26 17:22] LABS: Urine Bacteria 20-50 /HPF (NONE SEEN); Urine Culture Reflex Order REFLEXED; Urine Mucus 1+ /HPF (NONE SEEN); Urine RBC >50 /HPF (NONE SEEN)
[2019-07-26 17:26] LABS: Urine Blood 3+ (NEG); Urine Glucose NEGATIVE (NEG); Urine Protein 2+ (NEG); Urine Specific Gravity 1.015 (1.005-1.030)
[2019-07-26 17:42] VITALS: TEMP 97.7
[2019-07-26 17:46] VITALS: BP 112/44; O2SAT 97
--- NOTE | 2019-07-27 08:09 | EKG ---
Test Date: 2019-07-26 Test Time: 14:15:39 Supervisory Geographer: [place] MEASUREMENT RESULTS: Intervals: Rate: 87 CA: 146 QRSD: 92 QT: 366 QTc: 440 [place]: P: 53 CA: 146 QRS: 40 T: 39 INTERPRETIVE STATEMENTS: Normal sinus rhythm Normal ECG Compared to ECG 06/27/2019 20:34:04 No significant changes Electronically Signed On 07-27-19 08:07:34 [employer]AL DESIGN[employer] by Reji Mcclendon
== END 2019-07-26 17:35 | disposition home or self-care (01) ==
LOC: ER 14:05
DX: R07.9 Chest pain, unspecified (principal); E86.0 Dehydration; Z88.6 Allergy status to analgesic agent; Z88.0 Allergy status to penicillin; Z85.46 Personal history of malignant neoplasm of prostate
CPT/HCPCS: 93005; 87088; 85025; 87086; 80048; 36415; 84484; 71045; 96360; 99285; J7040; J7030; 81003; 81015